=== PATIENT | male | born 1935 | race Caucasian/White ===

== ENCOUNTER → 2017-06-21 | Outpatient (CLI) | payer MEDICARE ==
--- NOTE | 2017-06-22 09:29 | MR ---
EXAMINATION TYPE: MR ankle RT wo con DATE OF EXAM: 06/21/2017 COMPARISON: Outside right ankle x-rays June 02, 2017. History of fall injury with right ankle pain for 1 year per patient. HISTORY: Rt ankle pain per order. Standard multiplanar, multisequence MRI departmental protocol Multiplanar, multisequence images of the right ankle were acquired. FINDINGS: Achilles tendon is intact. Plantar fascia is intact. Normal sinus tarsi fat is seen. Ankle mortise symmetry is preserved. There is tibiotalar joint space loss with focal area of cartilaginous defect measuring 2 mm on coronal image 21 along medial aspect. No Significant soft tissue swelling is seen. Subtalar joint anteriorly shows joint space loss and adj acent subchondral cystic change Peroneal tendons are intact and felt unremarkable. Flexor tendons along the posterior medial aspect of ankle are intact. There is focal thickening of po sterior tibialis tendon at level of medial malleolus with small focus of increased signal distal to t his on sagittal image 5 identified. Distally near insertion there is additional area of focal increas ed signal seen on sagittal image 6. Findings are consistent with focal split and split insertional te ars. Some fluid is noted distal to this at level of anterior to mid calcaneus. Mild edema in the flex or hallucis muscle bulk and peroneal muscle bulk is present this could be consistent with mild strain injury or product altered walking mechanics. Extensor tendons anteriorly are intact. The anterior tibiofibular and anterior talofibular ligaments appear maintained. Increased fluid signa l in the deltoid ligament is present consistent with mild to moderate sprain injury at this level. Bone marrow signal intensity is felt within normal limits. Hindfoot articulations are maintained. Lis franc joints are intact. IMPRESSION: 1. Mild to moderate sprain injury of deltoid ligament. 2. Split tear along PT tendon with additional split insertional tear. 3. Tibiotalar and subtalar degenerative changes as detailed above. 4. Mild posterior flexor muscle edema could reflect strain injury versus product of altered ambulatin g mechanics.
== END ==
LOC: RADMRIMAIN 14:58
PROVIDERS: ATTEND Orthopaedic Surgery
DX: S93.401A Sprain of unspecified ligament of right ankle, initial encounter (principal); S96.911A Strain of unspecified muscle and tendon at ankle and foot level, right foot, initial encounter; M19.071 Primary osteoarthritis, right ankle and foot

== ENCOUNTER 2017-07-25 16:53 | Inpatient (IN) | payer BC, MEDICARE, OTHER ==
[2017-07-25] MEDS ORDERED: FAMOTIDINE 20 MG/2 ML VIAL IV STA (17:18)
[2017-07-25] MEDS ORDERED: RX INFO: IV CONTRAST WAS GIVEN 1 EACH MISC MISCELLANE PRN (17:18)
[2017-07-25] MEDS ORDERED: ONDANSETRON 4 MG/2 ML VIAL IVP STA (17:18)
--- NOTE | 2017-07-25 17:21 | ED ---
General Adult HPI - General Chief complaint: Abdominal Pain Stated complaint: Vomiting, Abd Pain Time Seen by Provider: 07/25/17 17:11 Source: patient, RN notes reviewed Mode of arrival: ambulatory Limitations: no limitations - History of Present Illness Initial comments: 82-year-old male presents to the emergency department with a chief complaint of abdominal pain nausea vomiting. Patient has had this for the past 3 or 4 days. The patient states that he does have a history of bowel resection and repair. He states that he just has some abdominal pain and he has been throwing up. He states he's been burping a lot and he's had some runny stool with it. Patient denies any fever chills with this. He states he was concerned because it just was not getting better so he thought that he should be evaluated. Patient denies any other symptoms at this time.Patient denies any recent fever, chills, shortness of breath, chest pain, back pain, numbness or tingling, dysuria or hematuria, constipation or diarrhea, headaches or visual changes, or any other current symptoms. - Related Data Home Medications Medication Instructions Recorded Confirmed Aspirin 81 mg PO HS 02/23/14 07/25/17 Simvastatin [Zocor] 20 mg PO HS 02/23/14 07/25/17 Allergies Allergy/AdvReac Type Severity Reaction Status Date / Time Penicillins Allergy Rash/Hives Verified 07/25/17 17:21 prednisone Allergy Rash/Hives Verified 07/25/17 17:21 Review of Systems ROS Statement: Those systems with pertinent positive or pertinent negative responses have been documented in the HPI. ROS Other: All systems not noted in ROS Statement are negative. Past Medical History Past Medical History: Coronary Artery Disease (CAD), GERD/Reflux, Osteoarthritis (OA) Additional Past Medical History / Comment(s): hepatitis c - has been cleared, INTERNAL BLEEDING(ULCER) ANEMIA,MILD LEAKY VALVE.GOUT,DIVERTICULITIS, History of Any Multi-Drug Resistant Organisms: None Reported Past Surgical History: Cholecystectomy, Heart Catheterization With Stent, Orthopedic Surgery Additional Past Surgical History / Comment(s): cataract, RT ROTATOR CUFF, RT KNEE ARTHROSCOPY,LIPOMA REMOVED FRON CHEST, BOWEL OBSTRUCTION Past Anesthesia/Blood Transfusion Reactions: Blood Transfusion Reaction Additional Past Anesthesia/Blood Transfusion Reaction / Comment(s): CONTRACTED HEP C FROM A BLOOD TRANSFUSION 35-40 YEARS AGO. Date of Last Stent Placement:: 1999 Past Psychological History: No Psychological Hx Reported Smoking Status: Former smoker Past Alcohol Use History: Rare Past Drug Use History: None Reported General Exam - General Exam Comments Initial Comments: General: The patient is awake and alert, in no distress, and does not appear acutely ill. Eye: Pupils are equal, round and reactive to light. Ears, nose, mouth and throat: There are moist mucous membranes. Neck: The neck is supple, there is no tenderness. Cardiovascular: There is a regular rate and rhythm. No murmur, rub or gallop is appreciated. Respiratory: Lungs are clear to auscultation, respirations are non-labored, breath sounds are equal. No wheezes, stridor, rales, or rhonchi. Gastrointestinal: Soft, non-distended, non-tender abdomen without masses or organomegaly noted. There is no rebound or guarding present. No CVA tenderness. Bowel sounds are unremarkable. Back: There is no tenderness to palpation in the midline. There is no obvious deformity. No rashes noted. Musculoskeletal: Normal ROM, no tenderness, There is no pedal edema. There is no calf tenderness or swelling. Sensation intact. Pulses equal bilaterally 2+. Neurological: CN II-XII intact, There are no obvious motor or sensory deficits. Coordination appears grossly intact. Speech is normal. Skin: Skin is warm and dry and no rashes or lesions are noted. Psychiatric: Cooperative, appropriate mood & affect, normal judgment. Limitations: no limitations Course Vital Signs 07/25/17 07/25/17 17:03 18:37 Temperature 98.3 F Pulse Rate 76 66 Respiratory 18 17 Rate Blood Pressure 146/75 165/81 O2 Sat by Pulse 97 95 Oximetry Medical Decision Making - Medical Decision Making 82-year-old male presents emergency department with chief complaint of nausea vomiting and abdominal pain. At this time CAT scan results and laboratories are reviewed. At this time we did start an NG tube. Dr. Maxwell was current tested by Dr. Wright. Patient will be admitted at this time. Since questions have been answered. - Lab Data Result diagrams: 07/25/17 18:00 07/25/17 18:00 Lab Results 07/25/17 07/25/17 07/25/17 Range/Units 18:00 18:00 18:00 WBC 15.0 H (3.8-10.6) k/uL RBC 5.67 (4.30-5.90) m/uL Hgb 17.1 (13.0-17.5) gm/dL Hct 51.4 (39.0-53.0) % MCV 90.8 (80.0-100.0) fL MCH 30.1 (25.0-35.0) pg MCHC 33.2 (31.0-37.0) g/dL RDW 14.3 (11.5-15.5) % Plt Count 235 (150-450) k/uL Neutrophils % 77 % Lymphocytes % 13 % Monocytes % 6 % Eosinophils % 2 % Basophils % 1 % Neutrophils # 11.6 H (1.3-7.7) k/uL Lymphocytes # 1.9 (1.0-4.8) k/uL Monocytes # 0.9 (0-1.0) k/uL Eosinophils # 0.3 (0-0.7) k/uL Basophils # 0.1 (0-0.2) k/uL PT (9.0-12.0) sec INR (<1.2) APTT (22.0-30.0) sec Sodium 138 (137-145) mmol/L Potassium 4.3 (3.5-5.1) mmol/L Chloride 102 (98-107) mmol/L Carbon Dioxide 25 (22-30) mmol/L Anion Gap 11 mmol/L BUN 15 (9-20) mg/dL Creatinine 1.10 (0.66-1.25) mg/dL Est GFR (MDRD) Af Amer >60 (>60 ml/min/1.73 sqM) Est GFR (MDRD) Non-Af >60 (>60 ml/min/1.73 sqM) Glucose 116 H (74-99) mg/dL Plasma Lactic Acid Luiz 1.1 (0.7-2.0) mmol/L Calcium 9.7 (8.4-10.2) mg/dL Total Bilirubin 0.8 (0.2-1.3) mg/dL AST 32 (17-59) U/L ALT 59 (21-72) U/L Alkaline Phosphatase 73 (38-126) U/L Total Protein 7.1 (6.3-8.2) g/dL Albumin 4.4 (3.5-5.0) g/dL Amylase 47 (30-110) U/L Lipase 27 (23-300) U/L Urine Color Urine Appearance (Clear) Urine pH (5.0-8.0) Ur Specific Chilo (1.001-1.035) Urine Protein (Negative) Urine Glucose (UA) (Negative) Urine Ketones (Negative) Urine Blood (Negative) Urine Nitrite (Negative) Urine Bilirubin (Negative) Urine Urobilinogen (<2.0) mg/dL Ur Leukocyte Esterase (Negative) Urine RBC (0-5) /hpf Urine WBC (0-5) /hpf Ur Squamous Epith Cells (0-4) /hpf Calcium Oxalate Crystal (None) /hpf Hyaline Casts (0-2) /lpf Urine Mucus (None) /hpf 07/25/17 07/25/17 Range/Units 18:00 18:05 WBC (3.8-10.6) k/uL RBC (4.30-5.90) m/uL Hgb (13.0-17.5) gm/dL Hct (39.0-53.0) % MCV (80.0-100.0) fL MCH (25.0-35.0) pg MCHC (31.0-37.0) g/dL RDW (11.5-15.5) % Plt Count (150-450) k/uL Neutrophils % % Lymphocytes % % Monocytes % % Eosinophils % % Basophils % % Neutrophils # (1.3-7.7) k/uL Lymphocytes # (1.0-4.8) k/uL Monocytes # (0-1.0) k/uL Eosinophils # (0-0.7) k/uL Basophils # (0-0.2) k/uL PT 10.0 (9.0-12.0) sec INR 1.0 (<1.2) APTT 23.2 (22.0-30.0) sec Sodium (137-145) mmol/L Potassium (3.5-5.1) mmol/L Chloride (98-107) mmol/L Carbon Dioxide (22-30) mmol/L Anion Gap mmol/L BUN (9-20) mg/dL Creatinine (0.66-1.25) mg/dL Est GFR (MDRD) Af Amer (>60 ml/min/1.73 sqM) Est GFR (MDRD) Non-Af (>60 ml/min/1.73 sqM) Glucose (74-99) mg/dL Plasma Lactic Acid Luiz (0.7-2.0) mmol/L Calcium (8.4-10.2) mg/dL Total Bilirubin (0.2-1.3) mg/dL AST (17-59) U/L ALT (21-72) U/L Alkaline Phosphatase (38-126) U/L Total Protein (6.3-8.2) g/dL Albumin (3.5-5.0) g/dL Amylase (30-110) U/L Lipase (23-300) U/L Urine Color Yellow Urine Appearance Clear (Clear) Urine pH 5.5 (5.0-8.0) Ur Specific Chilo 1.023 (1.001-1.035) Urine Protein 1+ H (Negative) Urine Glucose (UA) Negative (Negative) Urine Ketones 1+ H (Negative) Urine Blood Negative (Negative) Urine Nitrite Negative (Negative) Urine Bilirubin Negative (Negative) Urine Urobilinogen 2.0 (<2.0) mg/dL Ur Leukocyte Esterase Negative (Negative) Urine RBC 1 (0-5) /hpf Urine WBC 2 (0-5) /hpf Ur Squamous Epith Cells <1 (0-4) /hpf Calcium Oxalate Crystal Occasional H (None) /hpf Hyaline Casts 1 (0-2) /lpf Urine Mucus Many H (None) /hpf - Radiology Data Radiology results: report reviewed, image reviewed Disposition Clinical Impression: Partial small bowel obstruction Disposition: ADMITTED IP TO THIS [facility] Condition: Stable Referrals: Emanuel Tapia MD [Primary Care Provider] - 1-2 days Decision Date: 07/25/17 Decision Time: 20:15
[2017-07-25] MEDS ORDERED: SODIUM CHLORIDE 0.9% 1,000 ML IV STA (18:11)
[2017-07-25 18:12] LABS: Basophils # (A) 0.1 k/uL (0-0.2); Basophils % (A) 1 %; Eosinophils # (A) 0.3 k/uL (0-0.7); Eosinophils % (A) 2 %; HCT 51.4 % (39.0-53.0); HGB 17.1 gm/dL (13.0-17.5); Lymphocytes # (A) 1.9 k/uL (1.0-4.8); Lymphocytes % (A) 13 %; MCH 30.1 pg (25.0-35.0); MCHC 33.2 g/dL (31.0-37.0); MCV 90.8 fL (80.0-100.0); Mean Platelet Volume 7.4; Monocytes # (A) 0.9 k/uL (0-1.0); Monocytes % (A) 6 %; Neutrophils # (A) 11.6 k/uL (1.3-7.7); Neutrophils % (A) 77 %; Platelet Count 235 k/uL (150-450); RBC 5.67 m/uL (4.30-5.90); RDW 14.3 % (11.5-15.5)
[2017-07-25 18:20] LABS: Partial Thromboplastin Time 23.2 sec (22.0-30.0)
[2017-07-25 18:22] LABS: Appearance,Urine Clear (Clear); Bilirubin,Urine Negative (Negative); Blood,Urine Negative (Negative); Calcium Oxalate Crystals,Urine Occasional /hpf; Color,Urine Yellow; Glucose,Urine (UA) Negative (Negative); Hyaline Casts,Urine 1 /lpf (0-2); Ketones,Urine 1+ (Negative); Leukocyte Esterase,Urine Negative (Negative); Mucus,Urine Many /hpf; Nitrite,Urine Negative (Negative); PH, Urine 5.5 (5.0-8.0); Protein,Urine 1+ (Negative); RBC,Urine 1 /hpf (0-5); Specific Gravity,Urine 1.023 (1.001-1.035); Squamous Epithelial Cell,Urine <1 /hpf (0-4); WBC,Urine 2 /hpf (0-5)
[2017-07-25 18:25] LABS: ALT 59 U/L (21-72); AST 32 U/L (17-59); Albumin 4.4 g/dL (3.5-5.0); Alkaline Phosphatase 73 U/L (38-126); Amylase 47 U/L (30-110); Anion Gap 11 mmol/L; Blood Urea Nitrogen 15 mg/dL (9-20); Calcium 9.7 mg/dL (8.4-10.2); Carbon Dioxide 25 mmol/L (22-30); Chloride 102 mmol/L (98-107); Glucose 116 mg/dL (74-99); Lipase 27 U/L (23-300); Potassium 4.3 mmol/L (3.5-5.1); Sodium 138 mmol/L (137-145); Total Bilirubin 0.8 mg/dL (0.2-1.3); Total Protein 7.1 g/dL (6.3-8.2)
--- NOTE | 2017-07-25 19:55 | CT ---
EXAMINATION TYPE: CT abdomen pelvis w con DATE OF EXAM: 07/25/2017 COMPARISON: 02/23/2014 HISTORY: Mid to pelvic pain with vomiting for [address] DLP: 678.4 mGycm Automated exposure control for dose reduction was used. TECHNIQUE: Helical acquisition of images was performed from the lung bases through the pelvis. CONTRAST: Performed without Oral Contrast and with IV Contrast, patient injected with 100 mL of Omnipaque 300. FINDINGS: Lung bases are clear. There is no pleural effusion. Liver spleen pancreas appear normal. There are cl ips from cholecystectomy. Bile ducts are not dilated. There is no adrenal mass. There is a 2 cm corti alfred cyst on the lateral left kidney. Kidneys show satisfactory contrast opacification. There is no hy dronephrosis. There is no retroperitoneal adenopathy. There are multiple distended fluid-filled loops of small bowel in the mid abdomen. There are numerous diverticula in the sigmoid colon. There is ventral hernia that contains bowel there is no evidence o f a incarceration. Small bowel measures up to 3.4 cm. The distal ileum has fairly normal diameter. I do not see a transition point. There is numerous diverticula in the transverse colon and left colon. I see no bony destructive process. IMPRESSION: MULTIPLE DILATED AIR AND FLUID-FILLED LOOPS OF SMALL BOWEL IN THE MID ABDOMEN CONSISTENT WITH PARTIAL OBSTRUCTION OR SMALL BOWEL ILEUS. EXTENSIVE COLONIC DIVERTICULOSIS WITHOUT SIGN OF DIVERTICULITIS. DILATED SMALL BOWEL IS NEW COMPARED TO OLD CT SCAN. VENTRAL HERNIA IS PRESENT WITHOUT EVIDENCE OF INCARCERATED BOWEL.
[2017-07-25] MEDS ORDERED: NALOXONE 0.4 MG/ML 1 ML VIAL IV PRN (20:15)
[2017-07-25] MEDS: SODIUM CHLORIDE 0.9% 1,000 ML IV SCH (20:27)
[2017-07-25] MEDS ORDERED: LIDOCAINE URO-JET JELLY 2% 5 ML KIT URETHRAL ONE (20:45)
[2017-07-26] MEDS: HYDROmorphone 1 MG/ML 1 ML SYRINGE IVP PRN ×5 (02:31→22:47)
[2017-07-26 07:16] LABS: Basophils # (A) 0.1 k/uL (0-0.2); Basophils % (A) 1 %; Eosinophils # (A) 0.3 k/uL (0-0.7); Eosinophils % (A) 2 %; HCT 49.9 % (39.0-53.0); HGB 16.3 gm/dL (13.0-17.5); Lymphocytes # (A) 2.6 k/uL (1.0-4.8); Lymphocytes % (A) 20 %; MCH 30.7 pg (25.0-35.0); MCHC 32.7 g/dL (31.0-37.0); MCV 93.9 fL (80.0-100.0); Mean Platelet Volume 6.9; Monocytes # (A) 0.8 k/uL (0-1.0); Monocytes % (A) 6 %; Neutrophils # (A) 8.5 k/uL (1.3-7.7); Neutrophils % (A) 67 %; Platelet Count 207 k/uL (150-450); RBC 5.32 m/uL (4.30-5.90); WBC 12.7 k/uL (3.8-10.6)
[2017-07-26 07:51] LABS: ALT 51 U/L (21-72); AST 34 U/L (17-59); Alkaline Phosphatase 66 U/L (38-126); Anion Gap 10 mmol/L; Blood Urea Nitrogen 12 mg/dL (9-20); Calcium 9.4 mg/dL (8.4-10.2); Carbon Dioxide 25 mmol/L (22-30); Chloride 105 mmol/L (98-107); Glucose 94 mg/dL (74-99); Potassium 4.6 mmol/L (3.5-5.1); Sodium 140 mmol/L (137-145); Total Bilirubin 0.9 mg/dL (0.2-1.3); Total Protein 6.6 g/dL (6.3-8.2)
[2017-07-26] MEDS: SODIUM CHLORIDE 0.9% 1,000 ML IV SCH ×2 (08:17→15:05)
[2017-07-26] MEDS: hydrALAZINE HCL 20 MG/ML 1 ML VIAL IVP PRN ×2 (11:45→20:30)
--- NOTE | 2017-07-26 11:57 | P.GSHP ---
History of Present Illness H&P Date: 07/26/17 Chief Complaint: Abdominal pain, nausea, vomiting The patient's a 82-year-old man who began feeling poorly and Wednesday. Wednesday night he had 3 forceful emesis. There was also some loose stool. The belching and loose stool continued on Wednesday. Wednesday morning he felt a little bit better but then it got worse again Wednesday night so he came into the emergency department. He had several episodes of watery stools done in the emergency room. He does have a history of a small bowel obstruction for which surgery was required. This was about [address] Munguia. He hasn't had fevers or chills. No muscle aches. He's not been around anyone that's been ill. No blood in the stool or dark tarry stool. At a colonoscopy about a year ago which was unremarkable. He does have some constipation from time to time and he takes Metamucil or MiraLAX - Review of Systems All systems: negative (His blood pressure was a little elevated last time he saw Dr. Tapia.) Past Medical History Past Medical History: Coronary Artery Disease (CAD), GERD/Reflux, Osteoarthritis (OA) Additional Past Medical History / Comment(s): hepatitis c - has been cleared, peptic ulcer ANEMIA,MILD LEAKY VALVE.GOUT,DIVERTICULITIS, History of Any Multi-Drug Resistant Organisms: None Reported Past Surgical History: Cholecystectomy, Heart Catheterization With Stent, Orthopedic Surgery Additional Past Surgical History / Comment(s): cataract, RT ROTATOR CUFF, RT KNEE ARTHROSCOPY,LIPOMA, laparotomy with release of small bowel obstruction Past Anesthesia/Blood Transfusion Reactions: Blood Transfusion Reaction Additional Past Anesthesia/Blood Transfusion Reaction / Comment(s): CONTRACTED HEP C FROM A BLOOD TRANSFUSION 35-40 YEARS AGO. Date of Last Stent Placement:: 1999 Past Psychological History: No Psychological Hx Reported Smoking Status: Former smoker Past Alcohol Use History: Rare Past Drug Use History: None Reported Medications and Allergies Home Medications Medication Instructions Recorded Confirmed Type Aspirin 81 mg PO HS 02/23/14 07/25/17 History Simvastatin [Zocor] 20 mg PO HS 02/23/14 07/25/17 History Allergies Allergy/AdvReac Type Severity Reaction Status Date / Time Penicillins Allergy Rash/Hives Verified 07/25/17 17:21 prednisone Allergy Rash/Hives Verified 07/25/17 17:21 Surgical - Exam Osteopathic Statement: *. No significant issues noted on an osteopathic structural exam other than those noted in the History and Physical/Consult. Vital Signs Temp Pulse Resp BP Pulse Ox 98.3 F 76 18 146/75 97 07/25/17 17:03 07/25/17 17:03 07/25/17 17:03 07/25/17 17:03 07/25/17 17:03 - General well developed, well nourished, no distress - Eyes normal ocular movement - ENT normal mucosa, no congestion - Neck trachea midline, no lymphadectomy - Respiratory normal respiratory effort, clear to auscultation - Cardiovascular Rhythm: regular - Abdomen Mild tympany to percussion across the upper abdomen Abdomen: soft, non tender, bowel sounds, no guarding, no rigid, no rebound - Psychiatric oriented to time, oriented to person, oriented to place, speech is normal, memory intact Results - Labs 07/26/17 06:19 07/26/17 06:19 Abnormal Lab Results - Last 24 Hours (Table) 07/25/17 07/25/17 07/25/17 Range/Units 18:00 18:00 18:05 WBC 15.0 H (3.8-10.6) k/uL Neutrophils # 11.6 H (1.3-7.7) k/uL Glucose 116 H (74-99) mg/dL Urine Protein 1+ H (Negative) Urine Ketones 1+ H (Negative) Calcium Oxalate Crystal Occasional H (None) /hpf Urine Mucus Many H (None) /hpf 07/26/17 Range/Units 06:19 WBC 12.7 H (3.8-10.6) k/uL Neutrophils # 8.5 H (1.3-7.7) k/uL Glucose (74-99) mg/dL Urine Protein (Negative) Urine Ketones (Negative) Calcium Oxalate Crystal (None) /hpf Urine Mucus (None) /hpf Diabetes panel 07/25/17 07/26/17 Range/Units 18:00 06:19 Sodium 138 140 (137-145) mmol/L Potassium 4.3 4.6 (3.5-5.1) mmol/L Chloride 102 105 (98-107) mmol/L Carbon Dioxide 25 25 (22-30) mmol/L BUN 15 12 (9-20) mg/dL Creatinine 1.10 1.22 (0.66-1.25) mg/dL Glucose 116 H 94 (74-99) mg/dL Calcium 9.7 9.4 (8.4-10.2) mg/dL AST 32 34 (17-59) U/L ALT 59 51 (21-72) U/L Alkaline Phosphatase 73 66 (38-126) U/L Total Protein 7.1 6.6 (6.3-8.2) g/dL Albumin 4.4 4.0 (3.5-5.0) g/dL Calcium panel 07/25/17 07/26/17 Range/Units 18:00 06:19 Calcium 9.7 9.4 (8.4-10.2) mg/dL Albumin 4.4 4.0 (3.5-5.0) g/dL Pituitary panel 07/25/17 07/26/17 Range/Units 18:00 06:19 Sodium 138 140 (137-145) mmol/L Potassium 4.3 4.6 (3.5-5.1) mmol/L Chloride 102 105 (98-107) mmol/L Carbon Dioxide 25 25 (22-30) mmol/L BUN 15 12 (9-20) mg/dL Creatinine 1.10 1.22 (0.66-1.25) mg/dL Glucose 116 H 94 (74-99) mg/dL Calcium 9.7 9.4 (8.4-10.2) mg/dL Adrenal panel 07/25/17 07/26/17 Range/Units 18:00 06:19 Sodium 138 140 (137-145) mmol/L Potassium 4.3 4.6 (3.5-5.1) mmol/L Chloride 102 105 (98-107) mmol/L Carbon Dioxide 25 25 (22-30) mmol/L BUN 15 12 (9-20) mg/dL Creatinine 1.10 1.22 (0.66-1.25) mg/dL Glucose 116 H 94 (74-99) mg/dL Calcium 9.7 9.4 (8.4-10.2) mg/dL Total Bilirubin 0.8 0.9 (0.2-1.3) mg/dL AST 32 34 (17-59) U/L ALT 59 51 (21-72) U/L Alkaline Phosphatase 73 66 (38-126) U/L Total Protein 7.1 6.6 (6.3-8.2) g/dL Albumin 4.4 4.0 (3.5-5.0) g/dL - Imaging CT scan - abdomen: report reviewed, image reviewed Assessment and Plan (1) Hyperlipidemia Current Visit: Yes Status: Acute Code(s): E78.5 - HYPERLIPIDEMIA, UNSPECIFIED SNOMED Code(s): 34794683 (2) Partial small bowel obstruction Current Visit: Yes Status: Acute Code(s): K56.600 - PARTIAL INTESTINAL OBSTRUCTION, UNSPECIFIED TO CAUSE SNOMED Code(s): 617901051 (3) Elevated blood pressure reading Current Visit: Yes Status: Acute Code(s): R03.0 - ELEVATED BLOOD-PRESSURE READING, W/O DIAGNOSIS OF HTN SNOMED Code(s): 15921767 (4) Loose stools Current Visit: Yes Status: Acute Code(s): R19.5 - OTHER FECAL ABNORMALITIES SNOMED Code(s): 031054101 Plan: Either has a ileus or partial bowel obstruction. Will continue NG tube decompression today and repeat x-ray in the morning. If he has additional loose stools will obtain stool studies. Order a internal medicine consult due to his elevated blood pressure. Further recommendations to follow
[2017-07-26] MEDS: ONDANSETRON 4 MG/2 ML VIAL IVP PRN (22:53)
[2017-07-27] MEDS: SODIUM CHLORIDE 0.9% 1,000 ML IV SCH ×3 (04:48→20:12)
[2017-07-27] MEDS: HYDROmorphone 1 MG/ML 1 ML SYRINGE IVP PRN ×4 (05:53→23:42)
--- NOTE | 2017-07-27 10:17 | XR ---
EXAMINATION TYPE: XR abdomen 2V DATE OF EXAM: 07/27/2017 COMPARISON: 07/25/2017 HISTORY: Pain TECHNIQUE: One view abdominal series FINDINGS: The osseous structures are intact. The bowel gas pattern is nonspecific. Persistent dilated small [place] wel loops are seen. There are surgical clips in the upper quadrant. NG tube noted. Degenerative stewart ge of the spine. Contrast within the bladder noted. IMPRESSION: 1. Findings are suggestive of small bowel obstruction persistent dilated small bowel loop in the left abdomen with air-fluid level.
[2017-07-27] MEDS: FAMOTIDINE 20 MG/2 ML VIAL IV SCH (10:50)
--- NOTE | 2017-07-27 11:17 | P.PN ---
Progress Note - Text Progress Note Date: 07/27/17 The patient is improving. Passed some flatus this morning. Mild abdominal pain resolved with the analgesic. NG tube is in place. On examination he is afebrile. Vitals are stable. Abdomen is soft with mild tenderness in the left upper quadrant but no guarding or rebound or rigidiity. Has a small ventral incisional hernia very soft and nontender with no evidence of incarceration. Abdominal films were reviewed. Shows dilated loops of small bowel in the left upper quadrant. There is however gas in the colon and stool. Impression. Small bowel obstruction probably secondary to adhesions improving. Recommendation continued NG tube IV fluids. We will repeat his abdominal films tomorrow. Further management will depend on his clinical course.
[2017-07-27] MEDS: ONDANSETRON 4 MG/2 ML VIAL IVP PRN (12:56)
--- NOTE | 2017-07-27 14:44 | P.CONS ---
History of Present Illness - Reason for Consult Consult date: 07/27/17 Hypertension Requesting physician: Alysia Maxwell - History of Present Illness This is an 82-year-old male patient of Dr. Emanuel Tapia with past medical history of bowel obstruction requiring surgery 2 years ago with ongoing and chronic constipation, coronary artery disease status post 2 stents, gastroesophageal reflux disease and peptic ulcer, diverticulitis, gout, hepatitis C, osteoarthritis. Patient has had elevated blood pressure readings at his primary care physician's office but has not been started on medication. He gives history that he has not been feeling well since Wednesday and developed loose stool on Wednesday and by Wednesday morning he was feeling a little bit better but then he worsened. He has had ongoing watery stools. He came into [facility] emergency center for evaluation and was admitted to the surgical unit under the care of Dr. Maxwell. His blood pressure has been consistently elevated since admission. Review of Systems All systems: negative Constitutional: Denies chills, Denies fever Eyes: denies blurred vision, denies pain Ears, nose, mouth and throat: Denies headache, Denies sore throat Cardiovascular: Denies chest pain, Denies shortness of breath Respiratory: Denies cough Gastrointestinal: Reports abdominal pain, Reports belching, Reports bloating, Reports diarrhea, Reports nausea, Reports vomiting Musculoskeletal: Denies myalgias Integumentary: Denies pruritus, Denies rash Neurological: Denies numbness, Denies weakness Psychiatric: Denies anxiety, Denies depression Endocrine: Denies fatigue, Denies weight change Past Medical History Past Medical History: Coronary Artery Disease (CAD), GERD/Reflux, Osteoarthritis (OA) Additional Past Medical History / Comment(s): hepatitis c - has been cleared, peptic ulcer ANEMIA,MILD LEAKY VALVE.GOUT,DIVERTICULITIS, History of Any Multi-Drug Resistant Organisms: None Reported Past Surgical History: Cholecystectomy, Heart Catheterization With Stent, Orthopedic Surgery Additional Past Surgical History / Comment(s): cataract, RT ROTATOR CUFF, RT KNEE ARTHROSCOPY,LIPOMA, laparotomy with release of small bowel obstruction Past Anesthesia/Blood Transfusion Reactions: Blood Transfusion Reaction Additional Past Anesthesia/Blood Transfusion Reaction / Comm: CONTRACTED HEP C FROM A BLOOD TRANSFUSION 35-40 YEARS AGO. Date of Last Stent Placement:: 1999 Past Psychological History: No Psychological Hx Reported Smoking Status: Former smoker Past Alcohol Use History: Rare Additional Past Alcohol Use History / Comment(s): Smoked for a couple years as a teenager only. He drinks a glass of wine once monthly. No illicit drug use. Past Drug Use History: None Reported - Past Family History Mother Additional Family Medical History / Comment(s): Other at age 80 from acute kidney injury following surgery. Father Additional Family Medical History / Comment(s): Other in his mid 60s due to blood clots with history of bladder cancer. Brother(s) Additional Family Medical History / Comment(s): Patient has one brother with history of non-Hodgkin's lymphoma diagnosed 15 years ago. He does not have any sisters. Adult children do not have any major medical problems. Medications and Allergies Home Medications Medication Instructions Recorded Confirmed Type Aspirin 81 mg PO HS 02/23/14 07/25/17 History Simvastatin [Zocor] 20 mg PO HS 02/23/14 07/25/17 History Allergies Allergy/AdvReac Type Severity Reaction Status Date / Time Penicillins Allergy Rash/Hives Verified 07/25/17 17:21 prednisone Allergy Rash/Hives Verified 07/25/17 17:21 Physical Exam Vitals: Vital Signs Temp Pulse Resp BP Pulse Ox 07/27/17 09:11 98.2 F 79 16 124/75 93 L 07/27/17 02:37 98.0 F 94 18 137/69 96 07/26/17 19:46 98.1 F 82 16 195/91 93 L 07/26/17 14:15 98.2 F 66 16 154/77 93 L 07/26/17 13:39 75 152/74 07/26/17 11:43 64 162/83 Intake and Output 07/26/17 07/27/17 07/27/17 22:59 06:59 14:59 Output Total 1050 500 350 Balance -1050 -500 -350 Output: Gastric Drainage 650 500 350 Urine 400 Other: # Voids 2 Gen: This is an 82-year-old male patient. He is sitting up in bed and appears to be comfortable. No acute distress noted. HEENT: Head is atraumatic, normocephalic. Pupils equal, round. Sclerae is anicteric. NG tube in place NECK: Supple. No JVD. No lymphadenopathy. No thyromegaly. LUNGS: Clear to auscultation. No wheezes or rhonchi. No intercostal retractions. HEART: Regular rate and rhythm. No murmur. ABDOMEN: Soft. Bowel sounds are present. No masses. Mild tenderness. EXTREMITIES: No pedal edema. No calf tenderness. NEUROLOGICAL: Patient is awake, alert and oriented x3. Cranial nerves 2 through 12 are grossly intact. Results CBC & Chem 7: 07/26/17 06:19 07/26/17 06:19 Labs: Microbiology - Last 24 Hours (Table) 07/25/17 18:00 Blood Culture - Preliminary Blood No Growth after 24 hours Assessment and Plan Plan: 1. Small bowel obstruction probably secondary to adhesions. Continue conservative management under the care of Dr. Munguia. NG tube is in place. Tinea Zofran for nausea and vomiting and Dilaudid for pain control. Continue IV fluids of 0.9 normal saline at 75 mL per hour. 2. Hypertension. Continue hydralazine IV push while patient is nothing by mouth. Patient will be started on oral medication once nothing by mouth status lifted. 3. History of coronary artery disease status post 2 stents, stable. Patient denies any chest pain. Troponin is negative. 4. Gastroesophageal reflux disease and peptic ulcer disease, GI prophylaxis. Pepcid IV push. 5. VT prophylaxis. Heparin subcu. Patient will be admitted to the hospital for a minimum of 2 night stay. Discharge plan: most likely return home Impression and plan of care have been directed as dictated by the signing physician. Susi Cardona nurse practitioner acting as scribe for signing physician.
[2017-07-27] MEDS: HEPARIN SODIUM,PORCINE 5,000 UNIT/ML 1 ML VIAL SQ SCH ×2 (15:41→23:42)
[2017-07-27] MEDS: hydrALAZINE HCL 20 MG/ML 1 ML VIAL IVP PRN (20:38)
[2017-07-27] MEDS: BENZOCAINE/MENTHOL LOZENG 1 EACH LOZENGE MUCOUS MEM PRN (20:43)
[2017-07-27 22:59] LABS: Glucose,Whole Blood 78 mg/dL (75-99)
[2017-07-28] MEDS: HYDROmorphone 1 MG/ML 1 ML SYRINGE IVP PRN ×3 (06:31→22:04)
[2017-07-28] MEDS ORDERED: TETRAHYDROZOLINE 0.05% OPHTH DROPS 15 ML BTL BOTH EYES PRN (06:33)
--- NOTE | 2017-07-28 08:01 | XR ---
EXAMINATION TYPE: XR abdomen complete w decub DATE OF EXAM: 07/28/2017 COMPARISON: 08-12 HISTORY: Pain TECHNIQUE: Supine, upright, and left side down lateral decubitus views of the abdomen are obtained. FINDINGS: NG tube noted with persistent dilated small bowel loop left abdomen. Surgical clips in the gallbladder fossa. Hypertrophic and degenerative change of the spine. Air-fluid levels noted on the d ecubitus view. IMPRESSION: Persistent dilated small bowel loops in the left abdomen. Partial small bowel obstruction in the diff erential diagnosis. Findings unchanged.
[2017-07-28] MEDS: FAMOTIDINE 20 MG/2 ML VIAL IV SCH (08:58)
[2017-07-28] MEDS: HEPARIN SODIUM,PORCINE 5,000 UNIT/ML 1 ML VIAL SQ SCH ×3 (08:58→23:42)
[2017-07-28] MEDS: SODIUM CHLORIDE 0.9% 1,000 ML IV SCH (11:08)
[2017-07-28] MEDS: BENZOCAINE/MENTHOL LOZENG 1 EACH LOZENGE MUCOUS MEM PRN ×2 (11:10→21:00)
[2017-07-28 11:33] LABS: Glucose,Whole Blood 68 mg/dL (75-99)
[2017-07-28] MEDS ORDERED: BISACODYL 10 MG SUPP RECTAL STA (12:32)
--- NOTE | 2017-07-28 12:35 | P.PN ---
Progress Note - Text Progress Note Date: 07/28/17 The patient remains fairly stable. Hasn't had any bowel movement or passed any flatus since I saw him yesterday morning. He is afebrile. Minimal abdominal discomfort. Hasn't used any analgesia for 14 hours. NG tube is in place. Had about 650 mL stapler with the last 24 hours about half what he had the previous day. On examination the patient is awake alert in no distress. Vitals are stable. Temperature is normal. Hydration is good. Abdomen is quite soft and nondistended. Midline and right upper quadrant scars are noted. No mass or organomegaly. No incarcerated hernia although he does have a hernia in his midline scar. Easily reducible and soft. Remainder of the abdomen is soft and benign. Abdominal films are reviewed. Still has a dilated loop of bowel in the left upper quadrant. However there appears to be more gas in the colon including large amount of the rectum. Impression clinically improving partial small bowel obstruction probably secondary to adhesive disease. History of exploratory laparotomy several years ago for bowel obstruction secondary to adhesions. Recommendation. Continued medical management. Hopefully he'll open up in the next day or so. We will try Dulcolax suppository for now. Check his CBC and electrolytes.
[2017-07-28 16:55] LABS: Glucose,Whole Blood 85 mg/dL (75-99)
[2017-07-28] MEDS: DEXTROSE 5%-0.9% NACL 1,000 ML IV SCH (20:57)
[2017-07-28] MEDS: FLUTICASONE 50MCG/SPRAY NASAL 16GM NASAL SCH (21:01)
[2017-07-28] MEDS: hydrALAZINE HCL 20 MG/ML 1 ML VIAL IVP PRN (21:01)
[2017-07-28 23:28] VITALS: BMI 26.6
[2017-07-28 23:58] LABS: Glucose,Whole Blood 92 mg/dL (75-99)
[2017-07-29] MEDS: DEXTROSE 5%-0.9% NACL 1,000 ML IV SCH ×2 (02:46→12:26)
[2017-07-29 05:52] LABS: Glucose,Whole Blood 103 mg/dL (75-99)
[2017-07-29] MEDS: FLUTICASONE 50MCG/SPRAY NASAL 16GM NASAL SCH (07:45)
[2017-07-29] MEDS: FAMOTIDINE 20 MG/2 ML VIAL IV SCH (07:46)
[2017-07-29] MEDS: HEPARIN SODIUM,PORCINE 5,000 UNIT/ML 1 ML VIAL SQ SCH ×3 (07:46→23:53)
[2017-07-29 08:03] LABS: Basophils # (A) 0.1 k/uL (0-0.2); Basophils % (A) 1 %; Eosinophils # (A) 0.5 k/uL (0-0.7); Eosinophils % (A) 5 %; HCT 47.4 % (39.0-53.0); HGB 15.9 gm/dL (13.0-17.5); Lymphocytes # (A) 2.1 k/uL (1.0-4.8); Lymphocytes % (A) 20 %; MCH 31.1 pg (25.0-35.0); MCHC 33.6 g/dL (31.0-37.0); MCV 92.7 fL (80.0-100.0); Mean Platelet Volume 6.7; Monocytes # (A) 0.7 k/uL (0-1.0); Monocytes % (A) 7 %; Neutrophils # (A) 6.9 k/uL (1.3-7.7); Neutrophils % (A) 65 %; Platelet Count 231 k/uL (150-450); RBC 5.11 m/uL (4.30-5.90); WBC 10.7 k/uL (3.8-10.6)
[2017-07-29 08:28] LABS: Anion Gap 12 mmol/L; Blood Urea Nitrogen 14 mg/dL (9-20); Calcium 9.4 mg/dL (8.4-10.2); Carbon Dioxide 26 mmol/L (22-30); Chloride 103 mmol/L (98-107); Glucose 107 mg/dL (74-99); Potassium 3.7 mmol/L (3.5-5.1); Sodium 141 mmol/L (137-145)
--- NOTE | 2017-07-29 09:12 | P.PN ---
Progress Note - Text Progress Note Date: 07/29/17 The patient is doing much better today. Passed a fair amount of flatus last night and this morning. Did get a Dulcolax suppository yesterday. NG output is much less the less than 3-400 amalgams over 24 hours. On examination he is afebrile. Vitals are stable. He is in no distress. Abdomen is very soft and benign. No tenderness no distention no mass or organomegaly noted. Abdominal x-rays look a lot better tolerated the small bowel distention is much improved. There is gas and stool in the colon down to the rectum. WBC is normal. Electrolytes are normal. Impression. Resolving the partial small bowel obstruction probably secondary to adhesions. Recommendation we'll clamp his NG tube today and start him on a liquid diet if he tolerates that.
--- NOTE | 2017-07-29 09:40 | XR ---
EXAMINATION TYPE: XR abdomen complete w decub DATE OF EXAM: 07/29/2017 COMPARISON: 07/28/2017 HISTORY: Small bowel obstruction TECHNIQUE: Supine, upright, and left side down lateral decubitus views of the abdomen are obtained. FINDINGS: There is an NG tube and surgical clips in the right upper quadrant. Hypertrophic and degene rative changes spine. Arthropathy of the hips. Calcification pelvis is likely vascular. Air is seen w ithin the rectum. A dilated small bowel loop in the left abdomen is stable. IMPRESSION: Stable dilated small bowel loop in the left abdomen unchanged from previous exam. Air is seen distall y within the rectum.
[2017-07-29 11:12] LABS: Glucose,Whole Blood 100 mg/dL (75-99)
[2017-07-29] MEDS: BENZOCAINE/MENTHOL LOZENG 1 EACH LOZENGE MUCOUS MEM PRN ×2 (12:25→15:58)
[2017-07-29 17:09] LABS: Glucose,Whole Blood 97 mg/dL (75-99)
[2017-07-29 23:53] LABS: Glucose,Whole Blood 108 mg/dL (75-99)
[2017-07-30] MEDS ORDERED: CALCIUM CARBONATE 500 MG CHEWABLE PO PRN (01:01)
[2017-07-30] MEDS: DEXTROSE 5%-0.9% NACL 1,000 ML IV SCH (04:43)
[2017-07-30 05:55] LABS: Glucose,Whole Blood 104 mg/dL (75-99)
[2017-07-30 07:15] VITALS: PULSE 76
[2017-07-30] MEDS: FAMOTIDINE 20 MG/2 ML VIAL IV SCH (07:16)
[2017-07-30] MEDS: HEPARIN SODIUM,PORCINE 5,000 UNIT/ML 1 ML VIAL SQ SCH (07:17)
[2017-07-30] MEDS: FLUTICASONE 50MCG/SPRAY NASAL 16GM NASAL SCH (07:19)
[2017-07-30] MEDS ORDERED: HYDROmorphone 2 MG/ML 1 ML SYRINGE IVP PRN (08:46)
[2017-07-30] MEDS ORDERED: LISINOPRIL 5 MG TAB PO SCH (09:00)
--- NOTE | 2017-07-30 11:39 | P.PN ---
Subjective Progress Note Date: 07/29/17 This is an 82-year-old male patient of Dr. Emanuel Tapia with past medical history of bowel obstruction requiring surgery 2 years ago with ongoing and chronic constipation, coronary artery disease status post 2 stents, gastroesophageal reflux disease and peptic ulcer, diverticulitis, gout, hepatitis C, osteoarthritis. Patient has had elevated blood pressure readings at his primary care physician's office but has not been started on medication. He gives history that he has not been feeling well since Wednesday and developed loose stool on Wednesday and by Wednesday morning he was feeling a little bit better but then he worsened. He has had ongoing watery stools. He came into [facility] emergency center for evaluation and was admitted to the surgical unit under the care of Dr. Maxwell. His blood pressure has been consistently elevated since admission. 07/29: Patient complains of nasal congestion and sinus trouble as well as headache and draining eyes. He states he usually takes Claritin at home but he doesn't want to start that here. Eyedrops and Flonase are in place. Patient is to have NG tube clamped today and may start clear liquids if he is tolerating this tonight. We will add in lisinopril orally to start in the morning and provide a prescription for lisinopril. Patient states he is passing gas. Objective - Vital Signs Vital signs: Vital Signs Temp 97.7 F 07/29/17 07:00 Pulse 67 07/29/17 07:00 Resp 14 07/29/17 07:00 BP 152/76 07/29/17 07:00 Pulse Ox 97 07/29/17 07:00 Intake & Output 07/28/17 07/29/17 07/29/17 18:59 06:59 18:59 Intake Total 750 Output Total 50 675 Balance -50 75 Weight 72.575 kg Intake: Intake, IV Titration 750 Amount Dextrose 5%-0.9% NaCl 1, 750 000 ml @ 75 mls/hr IV . [id number] SANA Rx#:[id number] Output: Gastric Drainage 50 150 Urine 525 Other: # Voids 1 - Exam Gen: This is an 82-year-old male patient. He is sitting up in bed and appears to be comfortable. No acute distress noted. HEENT: Head is atraumatic, normocephalic. Pupils equal, round. Sclerae is anicteric. NG tube in place NECK: Supple. No JVD. No lymphadenopathy. No thyromegaly. LUNGS: Clear to auscultation. No wheezes or rhonchi. No intercostal retractions. HEART: Regular rate and rhythm. No murmur. ABDOMEN: Soft. Bowel sounds are present. No masses. Mild tenderness. EXTREMITIES: No pedal edema. No calf tenderness. NEUROLOGICAL: Patient is awake, alert and oriented x3. Cranial nerves 2 through 12 are grossly intact. - Labs CBC & Chem 7: 07/29/17 07:10 07/29/17 07:10 Labs: Abnormal Lab Results - Last 24 Hours (Table) 07/28/17 07/29/17 07/29/17 Range/Units 11:24 05:40 07:10 WBC 10.7 H (3.8-10.6) k/uL Glucose (74-99) mg/dL POC Glucose (mg/dL) 68 L 103 H (75-99) mg/dL 07/29/17 Range/Units 07:10 WBC (3.8-10.6) k/uL Glucose 107 H (74-99) mg/dL POC Glucose (mg/dL) (75-99) mg/dL Microbiology - Last 24 Hours (Table) 07/25/17 18:00 Blood Culture - Preliminary Blood No Growth after 72 hours Assessment and Plan Plan: 1. Small bowel obstruction probably secondary to adhesions. Continue conservative management under the care of Dr. Munguia. NG tube is in place and to be clamped today. Continue Zofran for nausea and vomiting and Dilaudid for pain control. Continue IV fluids of 0.9 normal saline at 75 mL per hour. 2. Hypertension. Continue hydralazine IV push while patient is nothing by mouth. Patient will be started on oral medication once nothing by mouth status lifted. 3. History of coronary artery disease status post 2 stents, stable. Patient denies any chest pain. Troponin is negative. 4. Gastroesophageal reflux disease and peptic ulcer disease, GI prophylaxis. Pepcid IV push. 5. VT prophylaxis. Heparin subcu. 6. ALLERGIC rhinitis and conjunctivitis. Eye drops and Flonase. Discharge plan: most likely return home Impression and plan of care have been directed as dictated by the signing physician. Susi Cardona nurse practitioner acting as scribe for signing physician.
[2017-07-30 11:54] LABS: Glucose,Whole Blood 112 mg/dL (75-99)
--- NOTE | 2017-07-30 13:00 | P.DS ---
Providers Date of admission: 07/25/17 20:15 Expected date of discharge: 07/30/17 Attending physician: Jarett Munguia Consults: 07/26/17 10:40 Consult Physician Routine Consulting Provider: Steven Rice Reason/Comments: medical management Do you want consulting provider notified?: Yes Primary care physician: Emanuel Tapia Patient Condition at Discharge: Stable Plan - Discharge Summary Discharge Rx Participant: Yes New Discharge Prescriptions: New Lisinopril [Zestril] 5 mg PO DAILY #30 tab No Action Simvastatin [Zocor] 20 mg PO HS Aspirin 81 mg PO HS Discharge Medication List Aspirin 81 mg PO HS 02/23/14 [History] Simvastatin [Zocor] 20 mg PO HS 02/23/14 [History] Lisinopril [Zestril] 5 mg PO DAILY #30 tab 07/30/17 [Rx] Follow up Appointment(s)/Referral(s): Emanuel Tapia MD [Primary Care Provider] - 1 Week Jarett Munguia MD [STAFF PHYSICIAN] - 10 Days Activity/Diet/Wound Care/Special Instructions: Soft diet. Activity as tolerated. Resume all home meds. Take Miralax 1 tblsp daily.
[2017-07-30 15:21] VITALS: BP 165/89; RESP 16; TEMP 97
== END 2017-07-30 15:40 | disposition home or self-care (01) | DRG 390 ==
LOC: EC 16:53 → 3SUR 20:15
PROVIDERS: ADMIT Surgery; ATTEND Surgery
DX: K56.51 Intestinal adhesions [bands], with partial obstruction (principal); E78.5 Hyperlipidemia, unspecified; I10 Essential (primary) hypertension; I25.10 Atherosclerotic heart disease of native coronary artery without angina pectoris; K21.9 Gastro-esophageal reflux disease without esophagitis; K43.2 Incisional hernia without obstruction or gangrene; M10.9 Gout, unspecified; Z79.82 Long term (current) use of aspirin; Z79.899 Other long term (current) drug therapy; Z87.11 Personal history of peptic ulcer disease; Z87.891 Personal history of nicotine dependence; Z90.49 Acquired absence of other specified parts of digestive tract; Z95.5 Presence of coronary angioplasty implant and graft; Z88.0 Allergy status to penicillin; Z88.8 Allergy status to other drugs, medicaments and biological substances
CPT/HCPCS: 36415; 74019; 74021; 74177; 80048; 80053; 81001; 82150; 82272; 83605; 83690; 84484; 85025; 85610; 85730; 87040; 87045; 87046; 96360; 96361; 96374; 96375; 99285

== ENCOUNTER 2017-08-14 08:34 | Inpatient (IN) | payer MEDICARE ==
[2017-08-14] MEDS ORDERED: ONDANSETRON 4 MG/2 ML VIAL IVP STA ×2 (08:52→11:43)
[2017-08-14] MEDS ORDERED: SODIUM CHLORIDE 0.9% 1,000 ML IV STA (08:52)
[2017-08-14 09:07] LABS: Basophils # (A) 0.1 k/uL (0-0.2); Basophils % (A) 0 %; Eosinophils # (A) 0.2 k/uL (0-0.7); Eosinophils % (A) 2 %; HCT 50.4 % (39.0-53.0); HGB 16.8 gm/dL (13.0-17.5); Lymphocytes # (A) 1.5 k/uL (1.0-4.8); Lymphocytes % (A) 12 %; MCH 30.3 pg (25.0-35.0); MCHC 33.4 g/dL (31.0-37.0); MCV 90.5 fL (80.0-100.0); Mean Platelet Volume 7.5; Monocytes # (A) 0.7 k/uL (0-1.0); Monocytes % (A) 5 %; Neutrophils # (A) 10.1 k/uL (1.3-7.7); Neutrophils % (A) 78 %; Platelet Count 293 k/uL (150-450); RBC 5.56 m/uL (4.30-5.90); RDW 14.1 % (11.5-15.5); WBC 12.9 k/uL (3.8-10.6)
[2017-08-14 09:16] LABS: Albumin 4.5 g/dL (3.5-5.0); Calcium 10.2 mg/dL (8.4-10.2); Potassium 5.4 mmol/L (3.5-5.1); Total Bilirubin 0.8 mg/dL (0.2-1.3); Total Protein 7.4 g/dL (6.3-8.2)
--- NOTE | 2017-08-14 10:04 | ED ---
Nausea/Vomiting/Diarrhea HPI - General Chief complaint: Nausea/Vomiting/Diarrhea Stated complaint: poss bowel obstruction Time Seen by Provider: 08/14/17 08:51 Source: patient, family, RN notes reviewed Mode of arrival: wheelchair Limitations: physical limitation - History of Present Illness Initial comments: This an 82-year-old male presents emergency Department chief complaint of nausea vomiting abdominal discomfort. Patient states that he was admitted earlier this month for partial balk section. Patient states that he recently discharged follow-up with Dr. lucio who told him that everything seemed to be resolving and that he could progress his diet as tolerated. Patient states that yesterday he tried eating some chicken soup states that he vomited after states she's been having abdominal cramping which seems similar to his prior symptoms. Patient states he's been dry heaving all night. Patient denies chest pain, shortness breath, fever or chills. Denies any dysuria hematuria. He did admit that he had several episodes of diarrhea prior to his other symptoms starting. - Related Data Home Medications Medication Instructions Recorded Confirmed Aspirin 81 mg PO HS 02/23/14 07/25/17 Simvastatin [Zocor] 20 mg PO HS 02/23/14 07/25/17 Previous Rx's Medication Instructions Recorded Lisinopril [Zestril] 5 mg PO DAILY #30 tab 07/30/17 Allergies Allergy/AdvReac Type Severity Reaction Status Date / Time Penicillins Allergy Rash/Hives Verified 08/14/17 08:39 prednisone Allergy Rash/Hives Verified 08/14/17 08:39 Review of Systems ROS Statement: Those systems with pertinent positive or pertinent negative responses have been documented in the HPI. ROS Other: All systems not noted in ROS Statement are negative. Past Medical History Past Medical History: Coronary Artery Disease (CAD), GERD/Reflux, Osteoarthritis (OA) Additional Past Medical History / Comment(s): hepatitis c - has been cleared, peptic ulcer ANEMIA,MILD LEAKY VALVE.GOUT,DIVERTICULITIS, History of Any Multi-Drug Resistant Organisms: None Reported Past Surgical History: Cholecystectomy, Heart Catheterization With Stent, Orthopedic Surgery Additional Past Surgical History / Comment(s): cataract, RT ROTATOR CUFF, RT KNEE ARTHROSCOPY,LIPOMA, laparotomy with release of small bowel obstruction Past Anesthesia/Blood Transfusion Reactions: Blood Transfusion Reaction Additional Past Anesthesia/Blood Transfusion Reaction / Comment(s): CONTRACTED HEP C FROM A BLOOD TRANSFUSION 35-40 YEARS AGO. Date of Last Stent Placement:: 1999 Past Psychological History: No Psychological Hx Reported Smoking Status: Former smoker Past Alcohol Use History: Rare Past Drug Use History: None Reported - Past Family History Mother Additional Family Medical History / Comment(s): Other at age 80 from acute kidney injury following surgery. Father Additional Family Medical History / Comment(s): Other in his mid 60s due to blood clots with history of bladder cancer. Brother(s) Additional Family Medical History / Comment(s): Patient has one brother with history of non-Hodgkin's lymphoma diagnosed 15 years ago. He does not have any sisters. Adult children do not have any major medical problems. General Exam Limitations: physical limitation General appearance: alert, in no apparent distress Head exam: Present: atraumatic, normocephalic, normal inspection Neck exam: Present: normal inspection, full ROM. Absent: tenderness, meningismus, lymphadenopathy Respiratory exam: Present: normal lung sounds bilaterally. Absent: respiratory distress, wheezes, rales, rhonchi, stridor Cardiovascular Exam: Present: regular rate, normal rhythm, normal heart sounds. Absent: systolic murmur, diastolic murmur, rubs, gallop, clicks GI/Abdominal exam: Present: soft, tenderness (Mild), normal bowel sounds. Absent: distended, guarding, rebound, rigid Back exam: Absent: CVA tenderness (R), CVA tenderness (L) Skin exam: Present: warm, dry, intact, normal color. Absent: rash Course Vital Signs 08/14/17 08/14/17 08/14/17 08:35 09:33 10:00 Temperature 97.3 F L Pulse Rate 79 60 72 Respiratory 15 16 16 Rate Blood Pressure 109/55 118/65 126/71 O2 Sat by Pulse 98 95 94 L Oximetry 08/14/17 11:00 Temperature Pulse Rate 67 Respiratory 16 Rate Blood Pressure 133/71 O2 Sat by Pulse 96 Oximetry Medical Decision Making - Lab Data Result diagrams: 08/14/17 08:53 08/14/17 08:55 Lab Results 08/14/17 08/14/17 08/14/17 Range/Units 08:53 08:55 10:02 WBC 12.9 H (3.8-10.6) k/uL RBC 5.56 (4.30-5.90) m/uL Hgb 16.8 (13.0-17.5) gm/dL Hct 50.4 (39.0-53.0) % MCV 90.5 (80.0-100.0) fL MCH 30.3 (25.0-35.0) pg MCHC 33.4 (31.0-37.0) g/dL RDW 14.1 (11.5-15.5) % Plt Count 293 (150-450) k/uL Neutrophils % 78 % Lymphocytes % 12 % Monocytes % 5 % Eosinophils % 2 % Basophils % 0 % Neutrophils # 10.1 H (1.3-7.7) k/uL Lymphocytes # 1.5 (1.0-4.8) k/uL Monocytes # 0.7 (0-1.0) k/uL Eosinophils # 0.2 (0-0.7) k/uL Basophils # 0.1 (0-0.2) k/uL Sodium 140 (137-145) mmol/L Potassium 5.4 H (3.5-5.1) mmol/L Chloride 103 (98-107) mmol/L Carbon Dioxide 22 (22-30) mmol/L Anion Gap 15 mmol/L BUN 38 H (9-20) mg/dL Creatinine 1.90 H (0.66-1.25) mg/dL Est GFR (MDRD) Af Amer 42 (>60 ml/min/1.73 sqM) Est GFR (MDRD) Non-Af 34 (>60 ml/min/1.73 sqM) Glucose 110 H (74-99) mg/dL Calcium 10.2 (8.4-10.2) mg/dL Total Bilirubin 0.8 (0.2-1.3) mg/dL AST 28 (17-59) U/L ALT 46 (21-72) U/L Alkaline Phosphatase 81 (38-126) U/L Total Protein 7.4 (6.3-8.2) g/dL Albumin 4.5 (3.5-5.0) g/dL Amylase 78 (30-110) U/L Lipase 39 (23-300) U/L Urine Color Dark Yellow Urine Appearance Cloudy (Clear) Urine pH 5.5 (5.0-8.0) Ur Specific [place] 1.024 (1.001-1.035) Urine Protein 1+ H (Negative) Urine Glucose (UA) Negative (Negative) Urine Ketones Trace H (Negative) Urine Blood Negative (Negative) Urine Nitrite Negative (Negative) Urine Bilirubin Negative (Negative) Urine Urobilinogen <2.0 (<2.0) mg/dL Ur Leukocyte Esterase Negative (Negative) Urine RBC 1 (0-5) /hpf Urine WBC 3 (0-5) /hpf Ur Squamous Epith Cells 1 (0-4) /hpf Hyaline Casts 291 H (0-2) /lpf Urine Mucus Many H (None) /hpf Disposition Clinical Impression: Partial small bowel obstruction Disposition: HOME SELF-CARE Condition: Stable Referrals: Emanuel Tapia MD [Primary Care Provider] - 1-2 days
--- NOTE | 2017-08-14 10:13 | XR ---
EXAMINATION TYPE: XR KUB , 2 VIEWS DATE OF EXAM ORDERED: 08/14/2017 HISTORY: pain. COMPARISON: Previous study dated 02/23/2014. FINDINGS: There has been a previous cholecystectomy. The lung bases are clear. The abdominal gas pattern is within normal limits. There is no evidence of obstruction or free air. N o unusual calcifications are seen. IMPRESSION: NO ACUTE INTRA-ABDOMINAL ABNORMALITY.
[2017-08-14 10:30] LABS: Appearance,Urine Cloudy (Clear); Bilirubin,Urine Negative (Negative); Blood,Urine Negative (Negative); Color,Urine Dark Yellow; Glucose,Urine (UA) Negative (Negative); Hyaline Casts,Urine 291 /lpf (0-2); Ketones,Urine Trace (Negative); Leukocyte Esterase,Urine Negative (Negative); Mucus,Urine Many /hpf; Nitrite,Urine Negative (Negative); PH, Urine 5.5 (5.0-8.0); Protein,Urine 1+ (Negative); RBC,Urine 1 /hpf (0-5); Specific Gravity,Urine 1.024 (1.001-1.035); Squamous Epithelial Cell,Urine 1 /hpf (0-4); Urobilinogen,Urine <2.0 mg/dL (<2.0); WBC,Urine 3 /hpf (0-5)
--- NOTE | 2017-08-14 11:27 | CT ---
EXAMINATION TYPE: CT abdomen pelvis wo con DATE OF EXAM: 08/14/2017 COMPARISON: Previous study dated 07/25/2017. HISTORY: Abd pain CT DLP: 383.9 mGycm Automated exposure control for dose reduction was used. FINDINGS: Visualized portions of the lungs are clear. There is no pleural or pericardial fluid. The h eart is not enlarged. Within the abdomen, the gallbladder is been removed. Liver and spleen are normal. Both adrenal glands appear normal. There is no hydronephrosis or nephrolithiasis. Limited views of the pancreas are normal. There is mild to moderate atheromatous calcification of the visualized arterial tree. There is no significant retroperitoneal, iliac or inguinal adenopathy. The bladder is unremarkable. There are multiple diverticula within the sigmoid colon. I do not see radiographic evidence of divert iculitis. The appendix is not visualized with certainty. There is mild prominence there is mild prominence of the mid portion of the small bowel with some pro ximal small bowel and distal small bowel being more normal in caliber. The small bowel is poking into a ventral hernia with a 6.2 cm mouth. It does not appear to be incarcerated. No free fluid and no free air is seen. There is an indirect inguinal hernia on the right containing fat only. There is degenerative disc disease and hypertrophic spondylosis within the spine. There is facet arth ropathy most marked at L4-5. No bony destructive lesion is seen. IMPRESSION: 1. MILD DILATATION OF THE MIDPORTION OF THE SMALL BOWEL, SIMILAR TO THE PREVIOUS STUDY. 2. UNCOMPLICATED DIVERTICULOSIS OF THE COLON. 3. INDIRECT INGUINAL HERNIA ON THE RIGHT CONTAINING FAT ONLY. 4. DEGENERATIVE CHANGES WITHIN THE SPINE.
[2017-08-14] MEDS ORDERED: HYDROmorphone 0.5 MG/0.5 ML SYRINGE IVP PRN (11:52)
[2017-08-14] MEDS ORDERED: NALOXONE 0.4 MG/ML 1 ML VIAL IV PRN (11:52)
[2017-08-14] MEDS ORDERED: ONDANSETRON 4 MG/2 ML VIAL IVP PRN (11:52)
[2017-08-14] MEDS: SODIUM CHLORIDE 0.9% 1,000 ML IV SCH (14:04)
[2017-08-14 14:19] VITALS: BMI 25.9
--- NOTE | 2017-08-14 14:20 | P.GSCN ---
History of Present Illness Consult date: 08/14/17 Reason for Consult: SBO History of present illness: This is a 82-year-old male who presents with a chief complaint of nausea vomiting yesterday. He was having loose watery stools 2 days prior however yesterday he began experiencing nausea and then had several bouts of emesis after eating some chicken noodle soup. He was recently hospitalized for a small bowel obstruction earlier this month which resolved with conservative therapy. He has a history of an open cholecystectomy and also an exploratory laparotomy with lysis of adhesions. He states he's feeling much better today however he has had no bowel movement or flatness in the last 24 hours. Past Medical History Past Medical History: Coronary Artery Disease (CAD), GERD/Reflux, Osteoarthritis (OA) Additional Past Medical History / Comment(s): hepatitis c - has been cleared, peptic ulcer ANEMIA,MILD LEAKY VALVE.GOUT,DIVERTICULITIS, History of Any Multi-Drug Resistant Organisms: None Reported Past Surgical History: Cholecystectomy, Heart Catheterization With Stent, Orthopedic Surgery Additional Past Surgical History / Comment(s): cataract, RT ROTATOR CUFF, RT KNEE ARTHROSCOPY,LIPOMA, laparotomy with release of small bowel obstruction Past Anesthesia/Blood Transfusion Reactions: Blood Transfusion Reaction Additional Past Anesthesia/Blood Transfusion Reaction / Comm: CONTRACTED HEP C FROM A BLOOD TRANSFUSION 35-40 YEARS AGO. Date of Last Stent Placement:: 1999 Past Psychological History: No Psychological Hx Reported Smoking Status: Former smoker Past Alcohol Use History: Rare Past Drug Use History: None Reported - Past Family History Mother Additional Family Medical History / Comment(s): Other at age 80 from acute kidney injury following surgery. Father Additional Family Medical History / Comment(s): Other in his mid 60s due to blood clots with history of bladder cancer. Brother(s) Additional Family Medical History / Comment(s): Patient has one brother with history of non-Hodgkin's lymphoma diagnosed 15 years ago. He does not have any sisters. Adult children do not have any major medical problems. Medications and Allergies Home Medications Medication Instructions Recorded Confirmed Type Aspirin 81 mg PO HS 02/23/14 08/14/17 History Simvastatin [Zocor] 20 mg PO HS 02/23/14 08/14/17 History Lisinopril [Zestril] 5 mg PO DAILY #30 tab 07/30/17 08/14/17 Rx Esomeprazole Magnesium [NexIUM] 20 mg PO DAILY 08/14/17 08/14/17 History Methylcellulose (with Sugar) 2 tbsp PO DAILY 08/14/17 08/14/17 History [Citrucel Powder] Allergies Allergy/AdvReac Type Severity Reaction Status Date / Time Penicillins Allergy Rash/Hives Verified 08/14/17 12:18 prednisone Allergy Rash/Hives Verified 08/14/17 12:18 Surgical - Exam Osteopathic Statement: *. No significant issues noted on an osteopathic structural exam other than those noted in the History and Physical/Consult. Vital Signs Temp Pulse Resp BP Pulse Ox 97.3 F L 79 15 109/55 98 08/14/17 08:35 08/14/17 08:35 08/14/17 08:35 08/14/17 08:35 08/14/17 08:35 - General well developed, well nourished, no distress - Eyes PERRL, normal ocular movement - ENT normal pinna, normal nares, normal mucosa - Neck no masses, trachea midline - Respiratory normal expansion, normal respiratory effort - Cardiovascular Rhythm: regular - Abdomen Abdomen is soft nontender mildly distended no rebound rigidity or guarding - Neurologic normal coordination, normal sensation - Musculoskeletal normal gait - Psychiatric oriented to time, oriented to person, oriented to place Results - Labs 08/14/17 08:53 08/14/17 08:55 Abnormal Lab Results - Last 24 Hours (Table) 08/14/17 08/14/17 08/14/17 Range/Units 08:53 08:55 10:02 WBC 12.9 H (3.8-10.6) k/uL Neutrophils # 10.1 H (1.3-7.7) k/uL Potassium 5.4 H (3.5-5.1) mmol/L BUN 38 H (9-20) mg/dL Creatinine 1.90 H (0.66-1.25) mg/dL Glucose 110 H (74-99) mg/dL Urine Protein 1+ H (Negative) Urine Ketones Trace H (Negative) Hyaline Casts 291 H (0-2) /lpf Urine Mucus Many H (None) /hpf Diabetes panel 08/14/17 Range/Units 08:55 Sodium 140 (137-145) mmol/L Potassium 5.4 H (3.5-5.1) mmol/L Chloride 103 (98-107) mmol/L Carbon Dioxide 22 (22-30) mmol/L BUN 38 H (9-20) mg/dL Creatinine 1.90 H (0.66-1.25) mg/dL Glucose 110 H (74-99) mg/dL Calcium 10.2 (8.4-10.2) mg/dL AST 28 (17-59) U/L ALT 46 (21-72) U/L Alkaline Phosphatase 81 (38-126) U/L Total Protein 7.4 (6.3-8.2) g/dL Albumin 4.5 (3.5-5.0) g/dL Calcium panel 08/14/17 Range/Units 08:55 Calcium 10.2 (8.4-10.2) mg/dL Albumin 4.5 (3.5-5.0) g/dL Pituitary panel 08/14/17 Range/Units 08:55 Sodium 140 (137-145) mmol/L Potassium 5.4 H (3.5-5.1) mmol/L Chloride 103 (98-107) mmol/L Carbon Dioxide 22 (22-30) mmol/L BUN 38 H (9-20) mg/dL Creatinine 1.90 H (0.66-1.25) mg/dL Glucose 110 H (74-99) mg/dL Calcium 10.2 (8.4-10.2) mg/dL Adrenal panel 08/14/17 Range/Units 08:55 Sodium 140 (137-145) mmol/L Potassium 5.4 H (3.5-5.1) mmol/L Chloride 103 (98-107) mmol/L Carbon Dioxide 22 (22-30) mmol/L BUN 38 H (9-20) mg/dL Creatinine 1.90 H (0.66-1.25) mg/dL Glucose 110 H (74-99) mg/dL Calcium 10.2 (8.4-10.2) mg/dL Total Bilirubin 0.8 (0.2-1.3) mg/dL AST 28 (17-59) U/L ALT 46 (21-72) U/L Alkaline Phosphatase 81 (38-126) U/L Total Protein 7.4 (6.3-8.2) g/dL Albumin 4.5 (3.5-5.0) g/dL - Imaging CT scan - abdomen: report reviewed, image reviewed CT scan - pelvis: report reviewed, image reviewed Assessment and Plan Assessment: Early or partial small bowel obstruction. Plan: At this time the patient is feeling better. We can hold off on NG tube placement for now however should the patient become nauseous or have a bout of emesis NG tube will be placed.. Discussed this with the patient and he was agreeable to this plan. Patient also has a Diet likely secondary to dehydration he'll be on IV fluids. Nothing by mouth at this time we will advance diet when patient begins to have bowel function
--- NOTE | 2017-08-14 19:25 | P.HPIM ---
History of Present Illness H&P Date: 08/14/17 Chief Complaint: Nausea, vomiting and diarrhea This is an 82-year-old male patient of Dr. Emanuel Tapia with past medical history of bowel obstruction requiring surgery 2 years ago with ongoing and chronic constipation, coronary artery disease status post 2 stents, gastroesophageal reflux disease and peptic ulcer, diverticulitis, gout, hepatitis C, osteoarthritis. Last admitted on 07/25 for partial small bowel obstruction managed conservatively. Patient was doing well until 2 days ago when he was advanced on his diet and patient had dinner outside including pizza and chicken soup. Patient started having nausea, vomiting associated with watery diarrhea the following day. He got officially retired 2 days ago and met many people at work some of them might be sick. Patient was seen during the last visit for medical management and was initiated on lisinopril. Labs including CMP is suggestive of acute kidney injury likely secondary to dehydration. Patient received a liter of IV bolus in the ER with continuation of normal saline at 100 mL per hour. Lisinopril will be discontinued for hyperkalemia and acute kidney injury. Patient is currently nothing per mouth as per surgery recommendation. Repeat CMP in the morning Review of Systems Constitutional: Reports poor appetite, Denies fatigue, Denies fever, Denies lethargy, Denies malaise Eyes: denies blurred vision, denies decreased vision, denies discharge Ears: deny: decreased hearing Ears, nose, mouth and throat: Denies ant. neck pain, Denies dysphagia, Denies epistaxis, Denies headache, Denies hoarseness, Denies odynophagia, Denies post- nasal drip, Denies swelling in mouth, Denies swelling in throat Cardiovascular: Denies chest pain, Denies decreased exercise tolerance, Denies orthopnea, Denies palpitations Respiratory: Denies congestion, Denies cough with sputum, Denies dyspnea Gastrointestinal: Reports change in bowel habits, Reports diarrhea, Reports nausea, Reports vomiting, Denies abdominal pain, Denies belching, Denies bloating, Denies BRBPR, Denies early satiety, Denies excessive gas, Denies hematemesis, Denies hematochezia, Denies jaundice, Denies loss of appetite Genitourinary: Denies discharge, Denies dysuria, Denies hematuria, Denies urinary frequency, Denies urinary retention Musculoskeletal: Denies arm numbness/tingling, Denies muscle cramps, Denies muscle weakness, Denies myalgias, Denies neck pain Musculoskeletal: absent: ankle stiffness, elbow stiffness, foot stiffness, wrist stiffness, wrist swelling Integumentary: Denies rash, Denies unusual bruising Neurological: Denies aphasia, Denies ataxia, Denies balance difficulties, Denies numbness, Denies paralysis, Denies paresthesias Psychiatric: Denies anxiety, Denies depression Past Medical History Past Medical History: Coronary Artery Disease (CAD), GERD/Reflux, Osteoarthritis (OA) Additional Past Medical History / Comment(s): hepatitis c - has been cleared, peptic ulcer ANEMIA,MILD LEAKY VALVE.GOUT,DIVERTICULITIS, History of Any Multi-Drug Resistant Organisms: None Reported Past Surgical History: Cholecystectomy, Heart Catheterization With Stent, Orthopedic Surgery Additional Past Surgical History / Comment(s): cataract, RT ROTATOR CUFF, RT KNEE ARTHROSCOPY,LIPOMA, laparotomy with release of small bowel obstruction Past Anesthesia/Blood Transfusion Reactions: Blood Transfusion Reaction Additional Past Anesthesia/Blood Transfusion Reaction / Comment(s): CONTRACTED HEP C FROM A BLOOD TRANSFUSION 35-40 YEARS AGO. Date of Last Stent Placement:: 1999 Past Psychological History: No Psychological Hx Reported Smoking Status: Former smoker Past Alcohol Use History: Rare Past Drug Use History: None Reported - Past Family History Mother Additional Family Medical History / Comment(s): Other at age 80 from acute kidney injury following surgery. Father Additional Family Medical History / Comment(s): Other in his mid 60s due to blood clots with history of bladder cancer. Brother(s) Additional Family Medical History / Comment(s): Patient has one brother with history of non-Hodgkin's lymphoma diagnosed 15 years ago. He does not have any sisters. Adult children do not have any major medical problems. Medications and Allergies Home Medications Medication Instructions Recorded Confirmed Type Aspirin 81 mg PO HS 02/23/14 08/14/17 History Simvastatin [Zocor] 20 mg PO HS 02/23/14 08/14/17 History Lisinopril [Zestril] 5 mg PO DAILY #30 tab 07/30/17 08/14/17 Rx Esomeprazole Magnesium [NexIUM] 20 mg PO DAILY 08/14/17 08/14/17 History Methylcellulose (with Sugar) 2 tbsp PO DAILY 08/14/17 08/14/17 History [Citrucel Powder] Allergies Allergy/AdvReac Type Severity Reaction Status Date / Time Penicillins Allergy Rash/Hives Verified 08/14/17 12:18 prednisone Allergy Rash/Hives Verified 08/14/17 12:18 Physical Exam Vitals: Vital Signs Temp Pulse Pulse Resp BP BP Pulse Ox 08/14/17 14:26 97.8 F 60 16 131/76 96 08/14/17 12:48 97.5 F L 63 16 131/58 95 08/14/17 11:00 67 16 133/71 96 08/14/17 10:00 72 16 126/71 94 L 08/14/17 09:33 60 16 118/65 95 08/14/17 08:35 97.3 F L 79 15 109/55 98 Intake and Output 08/14/17 08/14/17 08/14/17 06:59 14:59 22:59 Intake Total 75 Balance 75 Intake: IV 75 Sodium Chloride 0.9% 1, 75 000 ml @ 75 mls/hr IV . [id number] [facility] Rx#:[id number] Other: Voiding Method Toilet Weight 70.624 kg Patient Weight 08/15/17 06:59 Weight 70.624 kg - Constitutional General appearance: average body habitus, no acute distress - EENT Eyes: PERRLA, dentition normal, no ptosis, no scleral icterus Ears: bilateral: normal - Neck Neck: no lymphadenopathy, normal ROM Carotids: bilateral: upstroke normal - Respiratory Respiratory: bilateral: CTA, negative: diminished, dullness, rales, rhonchi - Cardiovascular Rhythm: regular Heart sounds: normal: S1, S2 Abnormal Heart Sounds: no systolic murmur, no diastolic murmur, no S3 Gallop, no S4 Gallop, no click ankle Peripheral Edema: absent: None - Gastrointestinal General gastrointestinal: no distended, no hepatomegaly, normal bowel sounds, no organomegaly, no rigid, no scaphoid, soft, no splenomegaly, no tenderness - Integumentary Integumentary: no calor, no cyanotic, no jaundiced, no pale, no rash - Neurologic Neurologic: CNII-XII intact - Musculoskeletal Musculoskeletal: generalized weakness, strength equal bilaterally - Psychiatric Psychiatric: A&O x's 3, appropriate affect, intact judgment & insight Results CBC & Chem 7: 08/15/17 07:05 08/15/17 07:05 Labs: Abnormal Lab Results - Last 24 Hours (Table) 08/14/17 08/14/17 08/14/17 Range/Units 08:53 08:55 10:02 WBC 12.9 H (3.8-10.6) k/uL Neutrophils # 10.1 H (1.3-7.7) k/uL Potassium 5.4 H (3.5-5.1) mmol/L BUN 38 H (9-20) mg/dL Creatinine 1.90 H (0.66-1.25) mg/dL Glucose 110 H (74-99) mg/dL Urine Protein 1+ H (Negative) Urine Ketones Trace H (Negative) Hyaline Casts 291 H (0-2) /lpf Urine Mucus Many H (None) /hpf Thrombosis Risk Factor Assmnt - DVT/VTE Prophylaxis DVT/VTE Prophylaxis: Pharmacologic Prophylaxis ordered - Choose All That Apply Each Risk Factor Represents 3 Points: Age 75 years or older Thrombosis Risk Factor Assessment Total Risk Factor Score: 3 Thrombosis Risk Factor Assessment Level: Moderate Risk Assessment and Plan Plan: 1. Small bowel obstruction probably secondary to adhesions. Continue conservative management under the care of Dr. Fernandez . Hold NG tube placement unless patient has another emesis. Zofran for nausea and vomiting and Dilaudid for pain control. Continue IV fluids of 0.9 normal saline at 100 mL per hour. 2. Acute kidney injury likely secondary to ATN. Monitor input and output. Hold lisinopril. Likely secondary to dehydration and decreased perfusion of the kidneys. Avoid any nephrotoxic medication. Hyperkalemia likely secondary to acute kidney injury. Repeat CMP in the morning. Continue fluids at 100 mL per hour. 3. History of coronary artery disease status post 2 stents, stable. Patient denies any chest pain 4. Gastroesophageal reflux disease and peptic ulcer disease, GI prophylaxis. Pepcid IV push. 5. DVT prophylaxis. Heparin subcu. 6. Hypotension on admission likely secondary to dehydration. Hold antihypertensive medication. If kidney function does not improve patient would need another blood pressure medication Patient will be admitted to the hospital for a minimum of 2 night stay. Discharge plan: most likely return home
[2017-08-14] MEDS: HEPARIN SODIUM,PORCINE 5,000 UNIT/ML 1 ML VIAL SQ SCH (21:44)
[2017-08-15] MEDS: SODIUM CHLORIDE 0.9% 1,000 ML IV SCH ×2 (02:11→13:43)
--- NOTE | 2017-08-15 07:03 | XR ---
EXAMINATION TYPE: XR abdomen 1V , 2 VIEWS DATE OF EXAM ORDERED: 08/15/2017 HISTORY: ileitis . COMPARISON: Previous study dated 08/14/[address] scan of the abdomen and pelvis dated 07/27. FINDINGS: There has been a previous cholecystectomy. The lung bases are clear. The abdominal gas pattern is within normal limits. There is no evidence of obstruction or free air. T here are scattered air-fluid levels in the mid abdomen corresponding with the patient's recent CT sca n. IMPRESSION: SCATTERED AIR-FLUID LEVELS IN THE MIDABDOMEN MAY REFLECT LOCALIZED SMALL BOWEL ILEUS.
[2017-08-15 07:51] LABS: Basophils # (A) 0.1 k/uL (0-0.2); Basophils % (A) 1 %; Eosinophils # (A) 0.5 k/uL (0-0.7); Eosinophils % (A) 6 %; HCT 42.7 % (39.0-53.0); HGB 14.5 gm/dL (13.0-17.5); Lymphocytes # (A) 1.5 k/uL (1.0-4.8); Lymphocytes % (A) 18 %; MCH 31.5 pg (25.0-35.0); MCHC 33.9 g/dL (31.0-37.0); Mean Platelet Volume 7.3; Monocytes # (A) 0.6 k/uL (0-1.0); Monocytes % (A) 7 %; Neutrophils # (A) 5.1 k/uL (1.3-7.7); Neutrophils % (A) 64 %; Platelet Count 223 k/uL (150-450); RBC 4.59 m/uL (4.30-5.90); RDW 14.3 % (11.5-15.5)
[2017-08-15 08:09] LABS: ALT 47 U/L (21-72); AST 34 U/L (17-59); Albumin 3.5 g/dL (3.5-5.0); Alkaline Phosphatase 63 U/L (38-126); Anion Gap 12 mmol/L; Blood Urea Nitrogen 29 mg/dL (9-20); Carbon Dioxide 20 mmol/L (22-30); Chloride 109 mmol/L (98-107); Glucose 71 mg/dL (74-99); Lipase 46 U/L (23-300); Potassium 4.6 mmol/L (3.5-5.1); Sodium 141 mmol/L (137-145); Total Bilirubin 0.8 mg/dL (0.2-1.3); Total Protein 5.8 g/dL (6.3-8.2)
[2017-08-15] MEDS: HEPARIN SODIUM,PORCINE 5,000 UNIT/ML 1 ML VIAL SQ SCH ×2 (08:50→20:20)
[2017-08-15] MEDS: FAMOTIDINE 20 MG/2 ML VIAL IV SCH (08:51)
--- NOTE | 2017-08-15 12:07 | P.PN ---
Subjective Progress Note Date: 08/15/17 Principal diagnosis: Small bowel obstruction Patient is doing well today had small bowel movement and multiple episodes of flatus overnight. Denies nausea vomiting. Abdominal pain is resolved. No other complaints. Objective - Vital Signs Vital signs: Vital Signs Temp 98.0 F 08/15/17 07:00 Pulse 54 L 08/15/17 08:00 Resp 18 08/15/17 08:00 BP 135/71 08/15/17 07:00 Pulse Ox 94 L 08/15/17 07:00 Intake & Output 08/14/17 08/15/17 08/15/17 18:59 06:59 18:59 Intake Total 75 800 Output Total 600 Balance 75 800 -600 Weight 70.624 kg Intake: IV 75 Sodium Chloride 0.9% 1, 75 000 ml @ 100 mls/hr IV . Q10H [facility] Rx#:[id number] Intake, IV Titration 800 Amount Sodium Chloride 0.9% 1, 800 000 ml @ 100 mls/hr IV . Q10H [facility] Rx#:[id number] Output: Urine 600 Other: Voiding Method Toilet Toilet Toilet # Voids 2 - Constitutional General appearance: Present: cooperative - Respiratory Details: Nonlabored breathing - Cardiovascular Rhythm: regular - Gastrointestinal Gastrointestinal Comment(s): Soft nondistended nontender - Psychiatric Psychiatric: Present: A&O x's 3 - Labs CBC & Chem 7: 08/15/17 07:05 08/15/17 07:05 Labs: Abnormal Lab Results - Last 24 Hours (Table) 08/15/17 Range/Units 07:05 Chloride 109 H (98-107) mmol/L Carbon Dioxide 20 L (22-30) mmol/L BUN 29 H (9-20) mg/dL Creatinine 1.29 H (0.66-1.25) mg/dL Glucose 71 L (74-99) mg/dL Total Protein 5.8 L (6.3-8.2) g/dL Assessment and Plan Assessment: Small bowel obstruction resolving Plan: Patient can be started on clear liquid diet today. Advance slowly as tolerated. No plans for acute surgical intervention at this time
[2017-08-15] MEDS: DEXTROSE 5%-0.9% NACL 1,000 ML IV SCH ×2 (13:44→23:24)
--- NOTE | 2017-08-15 15:34 | P.PN ---
Subjective Progress Note Date: 08/15/17 This is an 82-year-old male patient of Dr. Emanuel Tapia with past medical history of bowel obstruction requiring surgery 2 years ago with ongoing and chronic constipation, coronary artery disease status post 2 stents, gastroesophageal reflux disease and peptic ulcer, diverticulitis, gout, hepatitis C, osteoarthritis. Last admitted on 07/25 for partial small bowel obstruction managed conservatively. Patient was doing well until 2 days ago when he was advanced on his diet and patient had dinner outside including pizza and chicken soup. Patient started having nausea, vomiting associated with watery diarrhea the following day. He got officially retired 2 days ago and met many people at work some of them might be sick. Patient was seen during the last visit for medical management and was initiated on lisinopril. Labs including CMP is suggestive of acute kidney injury likely secondary to dehydration. Patient received a liter of IV bolus in the ER with continuation of normal saline at 100 mL per hour. Lisinopril will be discontinued for hyperkalemia and acute kidney injury. Patient is currently nothing per mouth as per surgery recommendation. Repeat CMP in the morning 08/15 patient is doing better. Resting comfortably in bed. Is passing flatus, had last bowel movement yesterday but was watery diarrhea. Creatinine improved from 1.9-1.29. Continue fluids. Patient to be initiated on clear liquid diet today and advance as tolerated. Patient's glucose dropped to 71 this morning fluids changed to D5 NS Objective - Vital Signs Vital signs: Vital Signs Temp 98.0 F 08/15/17 07:00 Pulse 54 L 08/15/17 08:00 Resp 18 08/15/17 08:00 BP 135/71 08/15/17 07:00 Pulse Ox 94 L 08/15/17 07:00 Intake & Output 08/14/17 08/15/17 08/15/17 18:59 06:59 18:59 Intake Total 75 800 Output Total 600 Balance 75 800 -600 Weight 70.624 kg Intake: IV 75 Sodium Chloride 0.9% 1, 75 000 ml @ 100 mls/hr IV . Q10H [facility] Rx#:[id number] Intake, IV Titration 800 Amount Sodium Chloride 0.9% 1, 800 000 ml @ 100 mls/hr IV . Q10H [facility] Rx#:[id number] Output: Urine 600 Other: Voiding Method Toilet Toilet Toilet # Voids 2 - Constitutional Constitutional Comment(s): - Constitutional General appearance: average body habitus, no acute distress - EENT Eyes: PERRLA, dentition normal, no ptosis, no scleral icterus Ears: bilateral: normal - Neck Neck: no lymphadenopathy, normal ROM Carotids: bilateral: upstroke normal - Respiratory Respiratory: bilateral: CTA, negative: diminished, dullness, rales, rhonchi - Cardiovascular Rhythm: regular Heart sounds: normal: S1, S2 Abnormal Heart Sounds: no systolic murmur, no diastolic murmur, no S3 Gallop, no S4 Gallop, no click ankle Peripheral Edema: absent: None - Gastrointestinal General gastrointestinal: no distended, no hepatomegaly, normal bowel sounds, no organomegaly, no rigid, no scaphoid, soft, no splenomegaly, no tenderness - Integumentary Integumentary: no calor, no cyanotic, no jaundiced, no pale, no rash - Neurologic Neurologic: CNII-XII intact - Musculoskeletal Musculoskeletal: generalized weakness, strength equal bilaterally - Psychiatric Psychiatric: A&O x's 3, appropriate affect, intact judgment & insight - Labs CBC & Chem 7: 08/15/17 07:05 08/15/17 07:05 Labs: Abnormal Lab Results - Last 24 Hours (Table) 08/15/17 Range/Units 07:05 Chloride 109 H (98-107) mmol/L Carbon Dioxide 20 L (22-30) mmol/L BUN 29 H (9-20) mg/dL Creatinine 1.29 H (0.66-1.25) mg/dL Glucose 71 L (74-99) mg/dL Total Protein 5.8 L (6.3-8.2) g/dL Assessment and Plan Plan: 1. Small bowel obstruction probably secondary to adhesions. Continue conservative management under the care of Dr. Fernandez . Hold NG tube placement unless patient has another emesis. Zofran for nausea and vomiting and Dilaudid for pain control. Clear liquid diet initiated today advance as tolerated . Continue IV fluids D5 0.9 normal saline at 100 mL per hour. 2. Acute kidney injury likely secondary to ATN. Monitor input and output. Hold lisinopril. Likely secondary to dehydration and decreased perfusion of the kidneys. Avoid any nephrotoxic medication. Hyperkalemia likely secondary to acute kidney injury. Repeat CMP in the morning. Continue fluids at 100 mL per hour. 3. History of coronary artery disease status post 2 stents, stable. Patient denies any chest pain. 4. Gastroesophageal reflux disease and peptic ulcer disease, GI prophylaxis. Pepcid IV push. 5. DVT prophylaxis. Heparin subcu. 6. Hypotension on admission likely secondary to dehydration. Hold antihypertensive medication. If kidney function does not improve patient would need another blood pressure medication Patient will be admitted to the hospital for a minimum of 2 night stay. Discharge plan: most likely return home
[2017-08-16 07:51] LABS: Basophils # (A) 0.1 k/uL (0-0.2); Basophils % (A) 1 %; Eosinophils # (A) 0.5 k/uL (0-0.7); Eosinophils % (A) 6 %; HCT 43.4 % (39.0-53.0); HGB 14.4 gm/dL (13.0-17.5); Lymphocytes # (A) 1.6 k/uL (1.0-4.8); Lymphocytes % (A) 21 %; MCH 30.7 pg (25.0-35.0); MCHC 33.2 g/dL (31.0-37.0); MCV 92.6 fL (80.0-100.0); Mean Platelet Volume 6.6; Monocytes # (A) 0.6 k/uL (0-1.0); Monocytes % (A) 8 %; Neutrophils # (A) 4.6 k/uL (1.3-7.7); Neutrophils % (A) 60 %; Platelet Count 224 k/uL (150-450); RBC 4.69 m/uL (4.30-5.90); RDW 12.6 % (11.5-15.5); WBC 7.6 k/uL (3.8-10.6)
[2017-08-16] MEDS: HEPARIN SODIUM,PORCINE 5,000 UNIT/ML 1 ML VIAL SQ SCH (07:56)
[2017-08-16] MEDS: FAMOTIDINE 20 MG/2 ML VIAL IV SCH (07:56)
[2017-08-16 08:00] LABS: ALT 51 U/L (21-72); AST 35 U/L (17-59); Albumin 3.5 g/dL (3.5-5.0); Alkaline Phosphatase 64 U/L (38-126); Anion Gap 9 mmol/L; Blood Urea Nitrogen 16 mg/dL (9-20); Calcium 9.1 mg/dL (8.4-10.2); Carbon Dioxide 22 mmol/L (22-30); Chloride 110 mmol/L (98-107); Glucose 96 mg/dL (74-99); Potassium 4.4 mmol/L (3.5-5.1); Sodium 141 mmol/L (137-145); Total Bilirubin 0.7 mg/dL (0.2-1.3)
[2017-08-16] MEDS: DEXTROSE 5%-0.9% NACL 1,000 ML IV SCH (08:09)
[2017-08-16 08:44] VITALS: BP 142/77; PULSE 50; RESP 18; TEMP 97.8
--- NOTE | 2017-08-16 12:41 | P.DS ---
Providers Date of admission: 08/14/17 12:03 Expected date of discharge: 08/16/17 Attending physician: Clementine Arce MD Consults: 08/14/17 12:02 Consult Physician Stat Consulting Provider: Jarett Munguia Consult Reason/Comments: SBO Do you want consulting provider notified?: Yes Primary care physician: Emanuel Tapia [facility] Course: This is an 82-year-old male patient of Dr. Emanuel Tapia with past medical history of bowel obstruction requiring surgery 2 years ago with ongoing and chronic constipation, coronary artery disease status post 2 stents, gastroesophageal reflux disease and peptic ulcer, diverticulitis, gout, hepatitis C, osteoarthritis. Last admitted on 07/25 for partial small bowel obstruction managed conservatively. Patient was doing well until 2 days ago when he was advanced on his diet and patient had dinner outside including pizza and chicken soup. Patient started having nausea, vomiting associated with watery diarrhea the following day. He got officially retired 2 days ago and met many people at work some of them might be sick. Patient was seen during the last visit for medical management and was initiated on lisinopril. Labs including CMP is suggestive of acute kidney injury likely secondary to dehydration. Patient received a liter of IV bolus in the ER with continuation of normal saline at 100 mL per hour. Lisinopril will be discontinued for hyperkalemia and acute kidney injury. Patient is currently nothing per mouth as per surgery recommendation. Repeat CMP in the morning 08/15 patient is doing better. Resting comfortably in bed. Is passing flatus, had last bowel movement yesterday but was watery diarrhea. Creatinine improved from 1.9-1.29. Continue fluids. Patient to be initiated on clear liquid diet today and advance as tolerated. Patient's glucose dropped to 71 this morning fluids changed to D5 NS 08/16: Patient states he has had a bowel movement that was a combination of gas, liquid and sometimes solid. Dr. Fernandez has advanced his diet and cleared him for discharge home later today if he tolerates this. Norvasc has been added for blood pressure control. Patient will be discharged home later today in stable condition. Discharge diagnoses: 1. Small bowel obstruction probably secondary to adhesions. 2. Acute kidney injury likely secondary to ATN. 3. History of coronary artery disease status post 2 stents, stable. 4. Gastroesophageal reflux disease and peptic ulcer disease 5. Hypotension on admission likely secondary to dehydration. 6. Hypertension Discharge plan: home Impression and plan of care have been directed as dictated by the signing physician. Susi Cardona nurse practitioner acting as scribe for signing physician. Patient Condition at Discharge: Good Plan - Discharge Summary Discharge Rx Participant: Yes New Discharge Prescriptions: New amLODIPine [Norvasc] 5 mg PO DAILY #30 tab Continue Simvastatin [Zocor] 20 mg PO HS Aspirin 81 mg PO HS Methylcellulose (with Sugar) [Citrucel Powder] 2 tbsp PO DAILY Esomeprazole Magnesium [NexIUM] 20 mg PO DAILY Discontinued Lisinopril [Zestril] 5 mg PO DAILY #30 tab Discharge Medication List Aspirin 81 mg PO HS 02/23/14 [History] Simvastatin [Zocor] 20 mg PO HS 02/23/14 [History] Esomeprazole Magnesium [NexIUM] 20 mg PO DAILY 08/14/17 [History] Methylcellulose (with Sugar) [Citrucel Powder] 2 tbsp PO DAILY 08/14/17 [History ] amLODIPine [Norvasc] 5 mg PO DAILY #30 tab 08/16/17 [Rx] Follow up Appointment(s)/Referral(s): Jarett Munguia MD [STAFF PHYSICIAN] - 1 Week Emanuel Tapia MD [Primary Care Provider] - 1 Week Patient Instructions/Handouts: Amlodipine (By mouth), Syncope (DC), Bradycardia (DC), Bowel Obstruction (DC), Hyperlipidemia (DC) Discharge Disposition: HOME SELF-CARE
--- NOTE | 2017-08-16 14:07 | P.PN ---
Progress Note - Text Progress Note Date: 08/16/17 Patient is doing much better today. He's having bowel movements overnight. He's tolerating his diet. If he tolerates a soft diet he may be discharged later today. He'll follow up in the clinic.
== END 2017-08-16 15:55 | disposition home or self-care (01) | DRG 388 ==
LOC: EC 08:34 → 3SUR 12:03 → 5MS5E 18:13
PROVIDERS: ADMIT Internal Medicine; ATTEND Internal Medicine
DX: K56.51 Intestinal adhesions [bands], with partial obstruction (principal); N17.0 Acute kidney failure with tubular necrosis; I95.9 Hypotension, unspecified; E87.5 Hyperkalemia; E86.0 Dehydration; R11.10 Vomiting, unspecified; I10 Essential (primary) hypertension; I25.10 Atherosclerotic heart disease of native coronary artery without angina pectoris; K21.9 Gastro-esophageal reflux disease without esophagitis; K27.9 Peptic ulcer, site unspecified, unspecified as acute or chronic, without hemorrhage or perforation; K59.09 Other constipation; M10.9 Gout, unspecified; M19.90 Unspecified osteoarthritis, unspecified site; K57.90 Diverticulosis of intestine, part unspecified, without perforation or abscess without bleeding; R19.7 Diarrhea, unspecified; Z95.5 Presence of coronary angioplasty implant and graft; Z87.891 Personal history of nicotine dependence; Z79.82 Long term (current) use of aspirin; Z79.899 Other long term (current) drug therapy; Z88.0 Allergy status to penicillin; Z88.8 Allergy status to other drugs, medicaments and biological substances
CPT/HCPCS: 36415; 74018; 74176; 80053; 81001; 82150; 83690; 85025; 96361; 96374; 99285

== ENCOUNTER 2018-07-18 13:48 | Emergency (ER) | payer MEDICARE ==
[2018-07-18 14:08] VITALS: BP 161/94; PULSE 76; RESP 20; TEMP 97.6
--- NOTE | 2018-07-18 14:58 | ED ---
Skin/Abscess/FB HPI - General Chief complaint: Skin/Abscess/Foreign Body Stated complaint: rash on stomach Time Seen by Provider: 07/18/18 14:11 Source: patient, RN notes reviewed Mode of arrival: ambulatory Limitations: no limitations - History of Present Illness Initial comments: 83-year-old male presented to the emergency Department with chief complaint of rash to his left side. Patient states it started this morning. He has had pain last few days in that region was told it was just a nerve in his back. Patient states she does have history of having shingles. Patient denies any other complaints no fever no chills no URI symptoms. Patient otherwise feels well. - Related Data Home Medications Medication Instructions Recorded Confirmed Aspirin 81 mg PO HS 02/23/14 08/14/17 Simvastatin [Zocor] 20 mg PO HS 02/23/14 08/14/17 Esomeprazole Magnesium [NexIUM] 20 mg PO DAILY 08/14/17 08/14/17 Methylcellulose (with Sugar) 2 tbsp PO DAILY 08/14/17 08/14/17 [Citrucel Powder] Previous Rx's Medication Instructions Recorded amLODIPine [Norvasc] 5 mg PO DAILY #30 tab 08/16/17 valACYclovir HCL [Valtrex] 1,000 mg PO Q8HR #30 tab 07/18/18 Allergies Allergy/AdvReac Type Severity Reaction Status Date / Time Penicillins Allergy Rash/Hives Verified 07/18/18 14:08 prednisone Allergy Rash/Hives Verified 07/18/18 14:08 Review of Systems ROS Statement: Those systems with pertinent positive or pertinent negative responses have been documented in the HPI. ROS Other: All systems not noted in ROS Statement are negative. Past Medical History Past Medical History: Coronary Artery Disease (CAD), GERD/Reflux, Osteoarthritis (OA) Additional Past Medical History / Comment(s): hepatitis c - has been cleared, peptic ulcer ANEMIA,MILD LEAKY VALVE.GOUT,DIVERTICULITIS, shingles History of Any Multi-Drug Resistant Organisms: None Reported Past Surgical History: Cholecystectomy, Heart Catheterization With Stent, Orthopedic Surgery Additional Past Surgical History / Comment(s): cataract, RT ROTATOR CUFF, RT KNEE ARTHROSCOPY,LIPOMA, laparotomy with release of small bowel obstruction Past Anesthesia/Blood Transfusion Reactions: Blood Transfusion Reaction Additional Past Anesthesia/Blood Transfusion Reaction / Comment(s): CONTRACTED HEP C FROM A BLOOD TRANSFUSION 35-40 YEARS AGO. Date of Last Stent Placement:: 1999 Past Psychological History: No Psychological Hx Reported Smoking Status: Former smoker Past Alcohol Use History: Rare Past Drug Use History: None Reported - Past Family History Mother Additional Family Medical History / Comment(s): Other at age 80 from acute kidney injury following surgery. Father Additional Family Medical History / Comment(s): Other in his mid 60s due to blood clots with history of bladder cancer. Brother(s) Additional Family Medical History / Comment(s): Patient has one brother with history of non-Hodgkin's lymphoma diagnosed 15 years ago. He does not have any sisters. Adult children do not have any major medical problems. General Exam Limitations: no limitations General appearance: alert, in no apparent distress Head exam: Present: atraumatic, normocephalic, normal inspection Neck exam: Present: normal inspection. Absent: tenderness, meningismus, lymphadenopathy Respiratory exam: Present: normal lung sounds bilaterally. Absent: respiratory distress, wheezes, rales, rhonchi, stridor Cardiovascular Exam: Present: regular rate, normal rhythm, normal heart sounds. Absent: systolic murmur, diastolic murmur, rubs, gallop, clicks Skin exam: Present: warm, dry, intact, normal color, rash (Vesicular, papular rash noted to left lower abdomen) Course Vital Signs 07/18/18 14:05 Temperature 97.6 F Pulse Rate 76 Respiratory 20 Rate Blood Pressure 161/94 O2 Sat by Pulse 97 Oximetry Medical Decision Making - Medical Decision Making 83-year-old male presented for rash. Patient is found to have shingles. He was started on Valtrex. Patient will follow-up PCP on Wednesday and return for any worsening symptoms. Disposition Clinical Impression: Shingles Disposition: HOME SELF-CARE Condition: Stable Instructions: Shingles (ED) Additional Instructions: Please return to the Emergency Department if symptoms worsen or any other concerns. Prescriptions: valACYclovir HCL [Valtrex] 1,000 mg PO Q8HR #30 tab Is patient prescribed a controlled substance at d/c from ED?: No Referrals: Emanuel Tapia MD [Primary Care Provider] - 1-2 days Time of Disposition: 14:58
== END 2018-07-18 15:16 | disposition home or self-care (01) ==
LOC: EC 13:48
DX: B02.9 Zoster without complications (principal); I25.10 Atherosclerotic heart disease of native coronary artery without angina pectoris; K21.9 Gastro-esophageal reflux disease without esophagitis; Z95.5 Presence of coronary angioplasty implant and graft; Z87.891 Personal history of nicotine dependence; Z79.82 Long term (current) use of aspirin; Z79.899 Other long term (current) drug therapy; Z88.0 Allergy status to penicillin; Z88.8 Allergy status to other drugs, medicaments and biological substances
CPT/HCPCS: 99282

== ENCOUNTER 2018-07-20 12:49 | Inpatient (IN) | payer MEDICARE ==
[2018-07-20] MEDS ORDERED: ASPIRIN 81 MG PO STA (13:10)
--- NOTE | 2018-07-20 13:39 | ED ---
Chest Pain HPI - General Chief Complaint: Chest Pain Stated Complaint: Chest pain, arm numbness Time Seen by Provider: 07/20/18 13:10 Source: patient, RN notes reviewed Mode of arrival: wheelchair Limitations: no limitations - History of Present Illness Initial Comments: 83-year-old male presents emergency Department chief complaint of chest pain. Patient states his started around 10 AM this morning. Patient states that it's central to the right sided. Patient states he feels like a pressure. Patient denies any fever, cough, cold like symptoms. Patient states he is currently being treated for shingles. Patient states she's also noticed some left arm numbness and tingling. Patient has known coronary artery disease with prior stents 15 years ago and history of borderline hypertension. Patient denies any hyperlipidemia or diabetes - Related Data Home Medications Medication Instructions Recorded Confirmed Aspirin 81 mg PO HS 02/23/14 07/20/18 Simvastatin [Zocor] 20 mg PO HS 02/23/14 07/20/18 Esomeprazole Magnesium [NexIUM] 20 mg PO DAILY PRN 08/14/17 07/20/18 Previous Rx's Medication Instructions Recorded valACYclovir HCL [Valtrex] 1,000 mg PO Q8HR #30 tab 07/18/18 Allergies Allergy/AdvReac Type Severity Reaction Status Date / Time Penicillins Allergy Rash/Hives Verified 07/20/18 13:44 prednisone Allergy Rash/Hives Verified 07/20/18 13:44 Review of Systems ROS Statement: Those systems with pertinent positive or pertinent negative responses have been documented in the HPI. ROS Other: All systems not noted in ROS Statement are negative. Past Medical History Past Medical History: Coronary Artery Disease (CAD), GERD/Reflux, Osteoarthritis (OA) Additional Past Medical History / Comment(s): hepatitis c - has been cleared, peptic ulcer ANEMIA,MILD LEAKY VALVE.GOUT,DIVERTICULITIS, shingles History of Any Multi-Drug Resistant Organisms: None Reported Past Surgical History: Cholecystectomy, Heart Catheterization With Stent, Orthopedic Surgery Additional Past Surgical History / Comment(s): cataract, RT ROTATOR CUFF, RT KNEE ARTHROSCOPY,LIPOMA, laparotomy with release of small bowel obstruction Past Anesthesia/Blood Transfusion Reactions: Blood Transfusion Reaction Additional Past Anesthesia/Blood Transfusion Reaction / Comment(s): CONTRACTED HEP C FROM A BLOOD TRANSFUSION 35-40 YEARS AGO. Date of Last Stent Placement:: 2000 Past Psychological History: No Psychological Hx Reported Smoking Status: Former smoker Past Alcohol Use History: Rare Past Drug Use History: None Reported - Past Family History Mother Additional Family Medical History / Comment(s): Other at age 80 from acute kidney injury following surgery. Father Additional Family Medical History / Comment(s): Other in his mid 60s due to blood clots with history of bladder cancer. Brother(s) Additional Family Medical History / Comment(s): Patient has one brother with history of non-Hodgkin's lymphoma diagnosed 15 years ago. He does not have any sisters. Adult children do not have any major medical problems. General Exam Limitations: no limitations General appearance: alert, in no apparent distress Eye exam: Present: normal appearance, PERRL, EOMI. Absent: scleral icterus, conjunctival injection, periorbital swelling ENT exam: Present: normal exam, normal oropharynx, mucous membranes moist Neck exam: Present: normal inspection, full ROM. Absent: tenderness, meningismus, lymphadenopathy Respiratory exam: Present: normal lung sounds bilaterally. Absent: respiratory distress, wheezes, rales, rhonchi, stridor, chest wall tenderness Cardiovascular Exam: Present: regular rate, normal rhythm, normal heart sounds. Absent: systolic murmur, diastolic murmur, rubs, gallop, clicks GI/Abdominal exam: Present: soft, normal bowel sounds, other (Rash noted left lower erythematous slightly papular). Absent: distended, tenderness, guarding, rebound, rigid Neurological exam: Present: alert, oriented X3, CN II-XII intact Skin exam: Present: warm, dry, intact, normal color Course Vital Signs 07/20/18 07/20/18 07/20/18 13:06 13:13 13:20 Temperature 98.1 F Pulse Rate 64 65 63 Respiratory 18 20 10 L Rate Blood Pressure 185/95 O2 Sat by Pulse 96 96 94 L Oximetry 07/20/18 07/20/18 07/20/18 13:30 13:40 13:50 Temperature Pulse Rate 63 61 58 L Respiratory 22 24 28 H Rate Blood Pressure 182/104 182/104 167/93 O2 Sat by Pulse 96 96 96 Oximetry 07/20/18 07/20/18 07/20/18 14:00 14:10 14:20 Temperature Pulse Rate 61 56 L Respiratory 19 22 Rate Blood Pressure 167/93 O2 Sat by Pulse 97 91 L Oximetry 07/20/18 07/20/18 07/20/18 14:30 14:40 14:50 Temperature Pulse Rate 60 60 60 Respiratory 21 19 20 Rate Blood Pressure 179/79 179/79 158/94 O2 Sat by Pulse 95 96 94 L Oximetry 07/20/18 07/20/18 07/20/18 15:00 15:10 15:20 Temperature Pulse Rate 52 L 56 L 60 Respiratory 18 16 20 Rate Blood Pressure 158/94 181/104 165/95 O2 Sat by Pulse 95 97 96 Oximetry 07/20/18 15:30 Temperature Pulse Rate 60 Respiratory 13 Rate Blood Pressure 174/85 O2 Sat by Pulse 97 Oximetry Chest Pain MDM - MDM 83-year-old male presented from for chest pain. Patient will be admitted for repeat cardiac enzymes, cardiology evaluation. Patient has a negative initial troponin no acute EKG changes. Disposition Clinical Impression: Chest pain Disposition: ADMITTED IP TO THIS HOSP Condition: Fair Referrals: Emanuel Tapia MD [Primary Care Provider] - 1-2 days
[2018-07-20 14:19] LABS: HCT 46.3 % (39.0-53.0); HGB 15.7 gm/dL (13.0-17.5); MCH 30.9 pg (25.0-35.0); MCHC 33.8 g/dL (31.0-37.0); MCV 91.4 fL (80.0-100.0); Mean Platelet Volume 6.7; Platelet Count 201 k/uL (150-450); RBC 5.07 m/uL (4.30-5.90); RDW 13.4 % (11.5-15.5); WBC 8.5 k/uL (3.8-10.6)
[2018-07-20 14:23] LABS: INR 0.9 (<1.2); Partial Thromboplastin Time 23.1 sec (22.0-30.0); Prothrombin Time 9.5 sec (9.0-12.0)
--- NOTE | 2018-07-20 14:23 | XR ---
EXAMINATION TYPE: XR chest 2V DATE OF EXAM: 07/20/2018 COMPARISON: Prior chest x-ray 02/28/2014 HISTORY: Chest pain and shortness of breath TECHNIQUE: Frontal and lateral views of the chest are obtained. FINDINGS: Patient is rotated. There is no focal air space opacity, pleural effusion, or pneumothorax seen. The cardiac silhouette size is within normal limits. The aorta is dense. Surgical clips prese nt in the abdomen as on prior. Mild compression deformity mid thoracic spine is stable. Question some slight superior displacement of the distal clavicle in relation to the acromion. The osseous structu res are intact. IMPRESSION: No acute cardiopulmonary process. Correlate for acromioclavicular separation on the left .
[2018-07-20 14:27] LABS: Albumin 4.1 g/dL (3.5-5.0); Calcium 9.3 mg/dL (8.4-10.2); Magnesium 2.2 mg/dL (1.6-2.3); Potassium 4.4 mmol/L (3.5-5.1); Total Bilirubin 0.5 mg/dL (0.2-1.3); Total Protein 6.9 g/dL (6.3-8.2)
[2018-07-20 14:35] LABS: Creatine Kinase 62 U/L (55-170)
[2018-07-20 14:47] LABS: Band Neutrophils % 4 %; Eosinophils # (M) 0.77 k/uL (0-0.7); Lymphocytes # (M) 2.98 k/uL (1.0-4.8); Monocytes # (M) 0.68 k/uL (0-1.0); Neutrophils % (M) 44 %; Nucleated Red Blood Cells 0 /100 WBC (0-0); Total Cells Counted 100
[2018-07-20 14:48] LABS: Polychromasia Present
[2018-07-20 14:49] LABS: Creatine Kinase MB 0.8 ng/mL (0.0-2.4); Troponin I <0.012 ng/mL (0.000-0.034)
[2018-07-20] MEDS ORDERED: HEPARIN SODIUM,PORCINE 5,000 UNIT/ML 1 ML VIAL IV ONE (15:45)
[2018-07-20] MEDS ORDERED: HEPARIN SOD,PORK IN 0.45% NACL 25,000 UNIT in 0.45% NACL 1 250ML.BAG IV SCH (15:45)
[2018-07-20] MEDS ORDERED: NITROGLYCERIN SL TABS 0.4 MG TAB SUBLINGUAL PRN (15:45)
[2018-07-20] MEDS ORDERED: PANTOPRAZOLE 40 MG TABLET PO PRN (16:55)
[2018-07-20 17:21] VITALS: BMI 26.6
[2018-07-20 19:55] LABS: Creatine Kinase 51 U/L (55-170)
[2018-07-20 20:10] LABS: Creatine Kinase MB 0.6 ng/mL (0.0-2.4); Troponin I <0.012 ng/mL (0.000-0.034)
[2018-07-20] MEDS: ATORVASTATIN 10 MG TAB PO SCH (20:14)
[2018-07-21] MEDS: valACYclovir HCL 1,000 MG TABLET PO SCH ×3 (00:02→15:02)
[2018-07-21 03:24] LABS: Cholesterol 141 mg/dL (<200); Creatine Kinase 56 U/L (55-170); HDL Cholesterol 47 mg/dL (40-60); LDL Cholesterol,Calculated 68 mg/dL (0-99); Triglycerides 129 mg/dL (<150)
[2018-07-21 03:36] LABS: Creatine Kinase MB 0.6 ng/mL (0.0-2.4); Troponin I <0.012 ng/mL (0.000-0.034)
[2018-07-21] MEDS ORDERED: REGADENOSON 0.4 MG/5 ML SYRINGE IV ONE (09:04)
[2018-07-21] MEDS ORDERED: CAFFEINE CITRATE 60 MG/3 ML VIAL IV PRN (09:04)
[2018-07-21] MEDS: ASPIRIN 325 MG TAB PO SCH (09:05)
--- NOTE | 2018-07-21 10:42 | P.CRDCN ---
History of Present Illness History of present illness: This is a pleasant 83-year-old male past medical history significant for coronary artery disease status post stenting to the mid LAD, dyslipidemia, gastroesophageal reflux disease and recent diagnosis of shingles on Wednesday. He was seen in the emergency department and started on Valtrex. He follows with Dr. Benedict in the office. We have been asked to see him in consultation for symptoms of chest discomfort. He states yesterday he started feeling a mid sternal chest pain described as a pressure sensation while at rest. He felt like he couldn't take in a deep breath. His symptoms intermittent in nature. There was some numbness and tingling noted in his left hand but no significant discomfort of the arm. He denies radiation to the back, neck or jaw. He states initially on Wednesday when he was diagnosed as shingles he was feeling some discomfort in his abdomen. However since beginning Valtrex he has no further symptoms of discomfort in his abdomen or near the area of the rash. He denies associated palpitations, nausea, vomiting, dizziness or diaphoresis. EKG reveals sinus mechanism with left axis deviation with first degree AVB noted. Chest x-ray is negative for an acute cardiopulmonary process with a possible evidence of left clavicular separation. Laboratory data reviewed, WBC 8.5, hemoglobin 15.7, platelets 201, sodium 139, potassium 4.4, magnesium 2.2, creatinine 1.01, cardiac enzymes negative 3, LDL 68 and HDL 47. Current cardiac medications include aspirin 81 mg daily atorvastatin 20 mg daily. He underwent cardiac catheterization in 2001 where he received a stent to the mid LAD. Most recent stress test performed in the office in 2013 revealed no evidence of stress-induced ischemia. With normal ejection fraction. At the time of my exam: CONSTITUTIONAL: Denies fever. Denies chills. EYES: Denies blurred vision. Denies vision changes. Denies eye pain. EARS, NOSE, MOUTH & THROAT: Denies headache. Denies sore throat. Denies ear pain. CARDIOVASCULAR: Denies chest pain. Denies shortness of breath. Denies orthopnea. Denies PND. Denies palpitations. RESPIRATORY: Denies cough. GASTROINTESTINAL: Denies abdominal pain. Denies diarrhea. Denies constipation. Denies nausea. Denies vomiting. MUSCULOSKELETAL: Denies myalgias. INTEGUMENTARY: Denies pruitis. Denies rash. NEUROLOGIC: Denies numbness. Denies tingling. Denies weakness. PSYCHIATRIC: Denies anxiety. Denies depression. ENDOCRINE: Denies fatigue. Denies weight change. Denies polydipsia. Denies polyurina. GENITOURINARY: Denies burning, hematuria or urgency with micturation. HEMATOLOGIC: Denies history of anemia. Denies bleeding. Blood pressure 137/76 heart rate 66 afebrile maintaining oxygen saturation on room air GENERAL: This is a 83-year-old male in no apparent distress at the time of my examination. HEENT: Head is atraumatic, normocephalic. Pupils are equal, round. Sclerae anicteric. Conjunctivae are clear. Mucous membranes of the mouth are moist. Neck is supple. There is no jugular venous distention. No carotid bruit is heard. LUNGS: Clear to auscultation no wheezes, rales or rhonchi. No chest wall tenderness is noted on palpation or with deep breathing. HEART: Regular rate and rhythm without murmurs, no rubs or gallops. S1 and S2 heard. ABDOMEN: Soft, nontender. Bowel sounds are heard. No organomegaly noted. Papular rash on left lower torso. EXTREMITIES: No evidence of peripheral edema and no calf tenderness noted. VASCULAR: Radial and dorsalis pedis pulses palpated, no evidence of clubbing. NEUROLOGIC: Patient is awake, alert and oriented x3. ASSESSMENT Chest pain, atypical. An acute coronary event has been ruled out. Shingles, currently on valtrex since Wednesday night. Dyslipidemia History of coronary artery disease s/p stenting to mid-LAD 2001 PLAN An acute coronary event has been ruled out with no EKG evidence of ischemia and negative cardiac enzymes. Check d-dimer. Obtain 2D echocardiogram and doppler study to assess cardiac structure and function. Perform Lexiscan stress test to assess for reversible cardiac ischemia. If stress test is normal he is stable from a cardiac perspective. Follow up with Dr. Benedict in 2-3 weeks. Thank you kindly for this consultation. Nurse Practitioner note has been reviewed, I agree with a documented findings and plan of care. Patient was seen and examined. Past Medical History Past Medical History: Coronary Artery Disease (CAD), GERD/Reflux, Osteoarthritis (OA) Additional Past Medical History / Comment(s): hepatitis c - has been cleared, peptic ulcer ANEMIA,MILD LEAKY VALVE.GOUT,DIVERTICULITIS, shingles History of Any Multi-Drug Resistant Organisms: None Reported Past Surgical History: Cholecystectomy, Heart Catheterization With Stent, Orthopedic Surgery Additional Past Surgical History / Comment(s): cataract, RT ROTATOR CUFF, RT KNEE ARTHROSCOPY,LIPOMA, laparotomy with release of small bowel obstruction Past Anesthesia/Blood Transfusion Reactions: Blood Transfusion Reaction Additional Past Anesthesia/Blood Transfusion Reaction / Comment(s): CONTRACTED HEP C FROM A BLOOD TRANSFUSION 35-40 YEARS AGO. Date of Last Stent Placement:: 1999 Past Psychological History: No Psychological Hx Reported Smoking Status: Former smoker Past Alcohol Use History: Rare Additional Past Alcohol Use History / Comment(s): Smoked for a couple years as a teenager only. He drinks a glass of wine once monthly. No illicit drug use. Past Drug Use History: None Reported - Past Family History Mother Additional Family Medical History / Comment(s): Other at age 80 from acute kidney injury following surgery. Father Additional Family Medical History / Comment(s): Other in his mid 60s due to blood clots with history of bladder cancer. Brother(s) Additional Family Medical History / Comment(s): Patient has one brother with history of non-Hodgkin's lymphoma diagnosed 15 years ago. He does not have any sisters. Adult children do not have any major medical problems. Medications and Allergies Home Medications Medication Instructions Recorded Confirmed Type Aspirin 81 mg PO HS 02/23/14 07/20/18 History Simvastatin [Zocor] 20 mg PO HS 02/23/14 07/20/18 History Esomeprazole Magnesium [NexIUM] 20 mg PO DAILY PRN 08/14/17 07/20/18 History valACYclovir HCL [Valtrex] 1,000 mg PO Q8HR #30 tab 07/18/18 07/20/18 Rx Allergies Allergy/AdvReac Type Severity Reaction Status Date / Time Penicillins Allergy Rash/Hives Verified 07/20/18 13:44 prednisone Allergy Rash/Hives Verified 07/20/18 13:44 Physical Exam Vitals: Vital Signs Temp Pulse Pulse Resp BP BP BP 07/21/18 08:00 98.4 F 66 17 137/76 07/21/18 04:00 97.9 F 83 18 134/74 07/21/18 00:00 97.6 F 67 18 152/78 07/20/18 20:00 18 07/20/18 19:30 97.9 F 66 18 177/84 07/20/18 17:18 97.5 F L 59 L 18 190/93 07/20/18 16:06 55 L 20 188/91 07/20/18 15:30 60 13 174/85 07/20/18 15:20 60 20 165/95 07/20/18 15:10 56 L 16 181/104 07/20/18 15:00 52 L 18 158/94 07/20/18 14:50 60 20 158/94 07/20/18 14:40 60 19 179/79 07/20/18 14:30 60 21 179/79 07/20/18 14:20 56 L 22 07/20/18 14:10 61 19 07/20/18 14:00 167/93 07/20/18 13:50 58 L 28 H 167/93 07/20/18 13:40 61 24 182/104 07/20/18 13:30 63 22 182/104 07/20/18 13:20 63 10 L 07/20/18 13:13 65 20 07/20/18 13:06 98.1 F 64 18 185/95 Pulse Ox 07/21/18 08:00 93 L 07/21/18 04:00 93 L 07/21/18 00:00 94 L 07/20/18 20:00 07/20/18 19:30 94 L 07/20/18 17:18 96 07/20/18 16:06 98 07/20/18 15:30 97 07/20/18 15:20 96 07/20/18 15:10 97 07/20/18 15:00 95 07/20/18 14:50 94 L 07/20/18 14:40 96 07/20/18 14:30 95 07/20/18 14:20 91 L 07/20/18 14:10 97 07/20/18 14:00 07/20/18 13:50 96 07/20/18 13:40 96 07/20/18 13:30 96 07/20/18 13:20 94 L 07/20/18 13:13 96 07/20/18 13:06 96 Intake and Output 12/26/18 12/27/18 12/27/18 22:59 06:59 14:59 Intake Total 33.785 Balance 33.785 Intake: Intake, IV Titration 33.785 Amount Heparin Sod,Pork in 0.45% 33.785 NaCl 25,000 unit In 0.45 % NaCl 1 250ml.bag @ 12 UNITS/KG/HR 8.7 mls/hr IV .Q24H [facility] Rx#:[id number] Other: # Voids 2 Weight 74.9 kg Results 07/20/18 13:19 07/20/18 13:19 Cardiac Enzymes 07/20/18 07/20/18 07/20/18 Range/Units 13:19 13:19 19:11 AST 36 (17-59) U/L CK-MB (CK-2) 0.8 0.6 (0.0-2.4) ng/mL Troponin I <0.012 <0.012 (0.000-0.034) ng/mL 07/21/18 Range/Units 01:56 AST (17-59) U/L CK-MB (CK-2) 0.6 (0.0-2.4) ng/mL Troponin I <0.012 (0.000-0.034) ng/mL Coagulation 07/20/18 07/20/18 07/21/18 Range/Units 13:19 19:24 01:56 PT 9.5 (9.0-12.0) sec APTT 23.1 45.7 H 46.9 H (22.0-30.0) sec Lipids 07/21/18 Range/Units 01:56 Triglycerides 129 (<150) mg/dL Cholesterol 141 (<200) mg/dL HDL Cholesterol 47 (40-60) mg/dL CBC 07/20/18 Range/Units 13:19 WBC 8.5 (3.8-10.6) k/uL RBC 5.07 (4.30-5.90) m/uL Hgb 15.7 (13.0-17.5) gm/dL Hct 46.3 (39.0-53.0) % Plt Count 201 (150-450) k/uL Comprehensive Metabolic Panel 07/20/18 Range/Units 13:19 Sodium 139 (137-145) mmol/L Potassium 4.4 (3.5-5.1) mmol/L Chloride 109 H (98-107) mmol/L Carbon Dioxide 20 L (22-30) mmol/L BUN 22 H (9-20) mg/dL Creatinine 1.01 (0.66-1.25) mg/dL Glucose 92 (74-99) mg/dL Calcium 9.3 (8.4-10.2) mg/dL AST 36 (17-59) U/L ALT 36 (21-72) U/L Alkaline Phosphatase 81 (38-126) U/L Total Protein 6.9 (6.3-8.2) g/dL Albumin 4.1 (3.5-5.0) g/dL Current Medications Generic Name Dose Route Start Last Admin Trade Name Freq PRN Reason Stop Dose Admin Aspirin 325 mg 07/21/18 09:00 Aspirin PO DAILY SANA Atorvastatin Calcium 10 mg 07/20/18 21:00 07/20/18 20:14 Lipitor PO 10 mg HS SANA Administration Heparin Sodium/Sodium Chloride 250 mls @ 8.7 mls/hr 07/20/18 15:45 07/20/18 19:57 25,000 unit/ Sodium Chloride IV 14.05 units/kg/hr .Q24H [facility] 10.2 mls/hr Titration Protocol 12 UNITS/KG/HR Nitroglycerin 0.4 mg 07/20/18 15:45 Nitrostat SUBLINGUAL Q5M PRN Chest Pain Pantoprazole Sodium 40 mg 07/20/18 16:55 Protonix PO DAILY PRN Heartburn Valacyclovir HCl 1,000 mg 07/21/18 00:00 07/21/18 00:02 Valtrex PO 1,000 mg Q8HR SANA Administration Intake and Output 07/20/18 07/21/18 07/21/18 22:59 06:59 14:59 Intake Total 33.785 Balance 33.785 Intake: Intake, IV Titration 33.785 Amount Heparin Sod,Pork in 0.45% 33.785 NaCl 25,000 unit In 0.45 % NaCl 1 250ml.bag @ 12 UNITS/KG/HR 8.7 mls/hr IV .Q24H [facility] Rx#:[id number] Other: # Voids 2 Weight 74.9 kg 07/20/18 13:19 07/20/18 13:19
--- NOTE | 2018-07-21 12:32 | NM ---
EXAMINATION TYPE: NM stress lexiscan cardiolite DATE OF EXAM: 07/21/2018 COMPARISON: Previous exam 02/14/2009 HISTORY: Chest pain TECHNIQUE: After the intravenous administration of 10.8 mCi Tc 99m Sestamibi - Cardiolite resting SP ECT images acquired 40 minutes post injection. The patient received 0.4mg Lexiscan, 25.7 mCi Tc 99m Sestamibi - Stress images obtained [address] injection FINDINGS: Review of stress and rest SPECT images demonstrates decreased radio from physical uptake along the in ferolateral left ventricle on stress as compared to rest images especially towards the base of the he art, possibly along the septum also towards the base. Gated analysis shows normal wall motion with a n estimated left ventricular ejection fraction of 69 %. IMPRESSION: Findings suggest pharmacologically induced left ventricular myocardial ischemia. Consider echocardiog raphic correlation for elevated ejection fraction.
[2018-07-21] MEDS ORDERED: HEPARIN SODIUM,PORCINE 5,000 UNIT/ML 1 ML VIAL IV PRN (13:26)
--- NOTE | 2018-07-21 13:29 | P.HPIM ---
History of Present Illness H&P Date: 07/21/18 This is an 82-year-old male patient of Dr. Emanuel Tapia with past medical history of bowel obstruction requiring surgery 2 years ago with ongoing and chronic constipation, coronary artery disease status post 2 stents in 1999, gastroesophageal reflux disease and peptic ulcer, diverticulitis, gout, hepatitis C, osteoarthritis. Last admitted on 07/25 and for partial small bowel obstruction managed conservatively. He was in ED last week for shingles and was treated with Valtrex. Patient did not feel well on Wednesday started having chest pain yesterday associated with shortness of breath. Chest pain was intermittent in character, associated with numbness of the left upper extremity denies any sweating or radiation of pain to the jaw or either arm. EKG did not suggest any ST or T-wave changes. Troponin 3 were negative. Vitals this morning suggests a temp of 97.9 pulse 68 respiratory rate 18 blood pressure 160/83 labs ordered suggestive of focal creatinine 1.01B UN 22, LDL 68 CBC within normal limits. Cardiology seen in the patient and suggested Lexiscan for the patient. Review of Systems Constitutional: Denies chills, Denies fever, Denies lethargy, Denies malaise, Denies poor appetite, Denies weakness, Denies weight loss Eyes: denies decreased vision, denies diplopia, denies discharge, denies pain Ears: deny: decreased hearing Ears, nose, mouth and throat: Denies dental pain, Denies headache, Denies nasal discharge, Denies nose pain Cardiovascular: Endorses chest pain, dorsalis decreased exercise tolerance, Denies edema, endorses high blood pressure, Denies irregular heart beat, Denies palpitations, Denies paroxysmal nocturnal dyspnea, Denies rapid heart beat, endorses shortness of breath Respiratory: Denies congestion, Denies cough, Denies cough with sputum, endorses dyspnea, Denies home oxygen, Denies wheezing Gastrointestinal: Denies abdominal pain, Denies change in bowel habits, Denies coffee ground emesis, Denies early satiety, Denies excessive gas, Denies heartburn, Denies hematemesis, Denies hematochezia, Denies loss of appetite, Denies nausea, Denies vomiting Genitourinary: Denies dysuria, Denies flank pain, Denies kidney stones, Denies menorrhagia, Denies urgency, Denies urinary frequency Musculoskeletal: Denies gait dysfunction, Denies limitation of motion, Denies morning stiffness, Denies muscle cramps Integumentary: Denies rash, Denies wounds, Denies brittle nails, Denies change in hair/nails, Denies darkening of skin Neurological: Denies balance difficulties, Denies change in speech, Denies double vision, Denies gait dysfunction, Denies loss of vision, Denies motor disturbance, Denies numbness, Denies paralysis, Denies paresthesias, Denies seizures Psychiatric: Denies anxiety, Denies depression Endocrine: Denies excessive sweating, Denies excessive thirst, Denies high blood sugars, Denies palpitations Hematologic/Lymphatic: Denies easy bruising, Denies lymphadenopathy Past Medical History Past Medical History: Coronary Artery Disease (CAD), GERD/Reflux, Hyperlipidemia , Osteoarthritis (OA) Additional Past Medical History / Comment(s): hepatitis c - has been cleared, peptic ulcer ANEMIA,MILD LEAKY VALVE.GOUT,DIVERTICULITIS, shingles History of Any Multi-Drug Resistant Organisms: None Reported Past Surgical History: Cholecystectomy, Heart Catheterization With Stent, Orthopedic Surgery Additional Past Surgical History / Comment(s): cataract, RT ROTATOR CUFF, RT KNEE ARTHROSCOPY,LIPOMA, laparotomy with release of small bowel obstruction Past Anesthesia/Blood Transfusion Reactions: Blood Transfusion Reaction Additional Past Anesthesia/Blood Transfusion Reaction / Comment(s): CONTRACTED HEP C FROM A BLOOD TRANSFUSION 35-40 YEARS AGO. Date of Last Stent Placement:: 1999 Past Psychological History: No Psychological Hx Reported Smoking Status: Former smoker Past Alcohol Use History: Rare Additional Past Alcohol Use History / Comment(s): Smoked for a couple years as a teenager only. He drinks a glass of wine once monthly. No illicit drug use. Past Drug Use History: None Reported - Past Family History Mother Family Medical History: Cancer Additional Family Medical History / Comment(s): Other at age 80 from acute kidney injury following surgery. Father Family Medical History: Cancer Additional Family Medical History / Comment(s): Other in his mid 60s due to blood clots with history of bladder cancer. Brother(s) Family Medical History: Cancer, Coronary Artery Disease (CAD) Additional Family Medical History / Comment(s): Patient has one brother with history of non-Hodgkin's lymphoma diagnosed 15 years ago. He does not have any sisters. Adult children do not have any major medical problems. Medications and Allergies Home Medications Medication Instructions Recorded Confirmed Type Aspirin 81 mg PO HS 02/23/14 07/20/18 History Simvastatin [Zocor] 20 mg PO HS 02/23/14 07/20/18 History Esomeprazole Magnesium [NexIUM] 20 mg PO DAILY PRN 08/14/17 07/20/18 History valACYclovir HCL [Valtrex] 1,000 mg PO Q8HR #30 tab 07/18/18 07/20/18 Rx Allergies Allergy/AdvReac Type Severity Reaction Status Date / Time Penicillins Allergy Rash/Hives Verified 07/20/18 13:44 prednisone Allergy Rash/Hives Verified 07/20/18 13:44 Physical Exam Vitals: Vital Signs Temp Pulse Pulse Resp BP BP BP 07/21/18 12:00 97.9 F 68 18 160/83 07/21/18 08:00 98.4 F 66 17 137/76 07/21/18 04:00 97.9 F 83 18 134/74 07/21/18 00:00 97.6 F 67 18 152/78 07/20/18 20:00 18 07/20/18 19:30 97.9 F 66 18 177/84 07/20/18 17:18 97.5 F L 59 L 18 190/93 07/20/18 16:06 55 L 20 188/91 07/20/18 15:30 60 13 174/85 07/20/18 15:20 60 20 165/95 07/20/18 15:10 56 L 16 181/104 07/20/18 15:00 52 L 18 158/94 07/20/18 14:50 60 20 158/94 07/20/18 14:40 60 19 179/79 07/20/18 14:30 60 21 179/79 07/20/18 14:20 56 L 22 07/20/18 14:10 61 19 07/20/18 14:00 167/93 07/20/18 13:50 58 L 28 H 167/93 07/20/18 13:40 61 24 182/104 07/20/18 13:30 63 22 182/104 07/20/18 13:20 63 10 L Pulse Ox 07/21/18 12:00 95 07/21/18 08:00 93 L 07/21/18 04:00 93 L 07/21/18 00:00 94 L 07/20/18 20:00 07/20/18 19:30 94 L 07/20/18 17:18 96 07/20/18 16:06 98 07/20/18 15:30 97 07/20/18 15:20 96 07/20/18 15:10 97 07/20/18 15:00 95 07/20/18 14:50 94 L 07/20/18 14:40 96 07/20/18 14:30 95 07/20/18 14:20 91 L 07/20/18 14:10 97 07/20/18 14:00 07/20/18 13:50 96 07/20/18 13:40 96 07/20/18 13:30 96 07/20/18 13:20 94 L Intake and Output 07/20/18 07/21/18 07/21/18 22:59 06:59 14:59 Intake Total 33.785 236 Balance 33.785 236 Intake: Intake, IV Titration 33.785 Amount Heparin Sod,Pork in 0.45% 33.785 NaCl 25,000 unit In 0.45 % NaCl 1 250ml.bag @ 12 UNITS/KG/HR 8.7 mls/hr IV .Q24H [facility] Rx#:[id number] Oral 236 Other: # Voids 2 Weight 74.9 kg 74.9 kg - Constitutional General appearance: cooperative, no acute distress, appears her stated age - EENT Eyes: anicteric sclerae, PERRLA, normal appearance ENT: hearing grossly normal - Neck Neck: no lymphadenopathy, normal ROM, no other, no rigidity, no stridor, no thyromegaly - Respiratory Respiratory: bilateral: CTA, negative: diminished, dullness, rales, rhonchi - Cardiovascular Rhythm: regular Heart sounds: normal: S1, S2 Abnormal Heart Sounds: 2+ systolic murmur, no diastolic murmur, - Gastrointestinal General gastrointestinal: normal bowel sounds, soft nontender, active shins concerning for shingles around the navel and mid abdomen on the left mildly tender to palpate - Integumentary Integumentary: Shingles on the abdomen left - Neurologic Neurologic: CNII-XII intact - Musculoskeletal Musculoskeletal: gait normal, strength equal bilaterally - Psychiatric Psychiatric: A&O x's 3, appropriate affect Results CBC & Chem 7: 07/20/18 13:19 07/20/18 13:19 Labs: Abnormal Lab Results - Last 24 Hours (Table) 07/20/18 07/20/18 07/20/18 Range/Units 13:19 13:19 19:11 Eosinophils # (Manual) 0.77 H (0-0.7) k/uL APTT (22.0-30.0) sec Chloride 109 H (98-107) mmol/L Carbon Dioxide 20 L (22-30) mmol/L BUN 22 H (9-20) mg/dL Total Creatine Kinase 51 L (55-170) U/L 07/20/18 07/21/18 Range/Units 19:24 01:56 Eosinophils # (Manual) (0-0.7) k/uL APTT 45.7 H 46.9 H (22.0-30.0) sec Chloride (98-107) mmol/L Carbon Dioxide (22-30) mmol/L BUN (9-20) mg/dL Total Creatine Kinase (55-170) U/L Thrombosis Risk Factor Assmnt - DVT/VTE Prophylaxis DVT/VTE Prophylaxis: Pharmacologic Prophylaxis ordered - Choose All That Apply Any of the Below Risk Factors Present?: Yes Each Factor Represents 1 point: Obesity (BMI >25) Other Risk Factors: Yes Each Risk Factor Represents 3 Points: Age 75 years or older Other congenital or acquired thrombophilia - If yes, enter type in comment: No Thrombosis Risk Factor Assessment Total Risk Factor Score: 4 Thrombosis Risk Factor Assessment Level: Moderate Risk Assessment and Plan Plan: #1 acute chest pain likely cardiac. Lexiscan stress test is positive suggestive of decreased uptake in the inferior lateral left ventricle and along the septum towards the base. possible cardiac cath tomorrow keep patient nothing by mouth after midnight continue heparin drip overnight. Initiated on metoprolol tartrate 12.5 mg twice a day. Continue Lipitor 10 mg by mouth daily at bedtime and he is a 70 #2 history of Small bowel obstruction probably secondary to adhesions. Follows Dr. Fernandez . Stable 2. Active shingles continue Valtrex 1000 mg every 8 3. History of coronary artery disease status post 2 stents continue aspirin, metoprolol, Lipitor 4. Gastroesophageal reflux disease and peptic ulcer disease, GI prophylaxis. Pantoprazole 40 mg by mouth daily 5. DVT prophylaxis. Heparin drip 6. Hypertension blood pressure uncontrolled on admission has improved since yesterday. We'll initiate metoprolol 12.5 twice a day Patient will be admitted to the hospital for a minimum of 2 night stay.
[2018-07-21] MEDS: METOPROLOL TARTRATE 12.5 MG TAB PO SCH ×2 (14:03→21:00)
[2018-07-21] MEDS: HEPARIN SOD,PORK IN 0.45% NACL 25,000 UNIT in 0.45% NACL 1 250ML.BAG IV SCH (15:02)
[2018-07-21] MEDS: LOSARTAN 50 MG TAB PO SCH (15:28)
[2018-07-21 15:34] LABS: Basophils # (A) 0.1 k/uL (0-0.2); Basophils % (A) 1 %; Eosinophils # (A) 0.4 k/uL (0-0.7); Eosinophils % (A) 5 %; HCT 46.3 % (39.0-53.0); HGB 15.6 gm/dL (13.0-17.5); Lymphocytes # (A) 2.1 k/uL (1.0-4.8); Lymphocytes % (A) 26 %; MCHC 33.6 g/dL (31.0-37.0); MCV 92.3 fL (80.0-100.0); Mean Platelet Volume 6.9; Monocytes # (A) 0.6 k/uL (0-1.0); Monocytes % (A) 7 %; Neutrophils # (A) 4.9 k/uL (1.3-7.7); Neutrophils % (A) 58 %; Platelet Count 176 k/uL (150-450); RBC 5.02 m/uL (4.30-5.90); RDW 13.6 % (11.5-15.5); WBC 8.3 k/uL (3.8-10.6)
[2018-07-21 15:53] LABS: D-Dimer 0.42 mg/L FEU (<0.60); INR 0.9 (<1.2); Partial Thromboplastin Time 23.8 sec (22.0-30.0)
--- NOTE | 2018-07-21 19:32 | P.STRESS ---
- Stress Test Note Stress Test Results/Findings: Exam Performed: NM stress lexiscan cardiolite Exam Date: 07/21/18 Reason for Exam: CP Height: 5 ft 5 in Weight: 74.9 kg Protocol: LEXISCAN CARDIOLITE Stage: NA Duration of Exercise: 1:00 Resting Heart Rate: 58 Resting Blood Pressure: 152/85 Maximum Achieved Heart Rate: 108 Maximum Achieved Blood Pressure: 166/78 85% PMHR: NA 100% PMHR: NA METS: NA Technologist Comment: Stress Test Results/Findings: This is a 83-year-old gentleman was admitted to the hospital with chest pains and shortness of breath. Known case of ischemic heart disease. EKG did not reveal any acute changes. Cardiac enzymes are negative. Stress data: Baseline EKG showed sinus rhythm with nonspecific ST-T changes. A standard dose of Lexiscan was infused. EKGs taken during and after infusion did not reveal any changes of ischemia. Occasional PVCs are noted. Final impression: #1. Negative Lexiscan stress test #2. Report on the nuclear images to be given by the radiologist
--- NOTE | 2018-07-21 20:09 | ECHOF ---
Referral Reason: MEASUREMENTS -------- HEIGHT: 165.1 cm WEIGHT: 74.8 kg BP: IVSd: 1.1 cm (0.6 - 1.1) LVIDd: 3.8 cm (3.9 - 5.3) LVPWd: 1.0 cm (0.6 - 1.1) IVSs: 1.4 cm LVIDs: 2.0 cm LVPWs: 1.3 cm LAESV Index (A-L): 16.83 ml/m Ao Diam: 2.9 cm (2.0 - 3.7) AV Cusp: 1.8 cm (1.5 - 2.6) LA Diam: 3.5 cm (2.7 - 3.8) MV EXCURSION: 11.800 mm (> 18.000) MV EF SLOPE: 35 mm/s (70 - 150) EPSS: 0.5 cm MV E Emil: 0.57 m/s MV DecT: 167 ms MV A Emil: 1.00 m/s MV E/A Ratio: 0.56 AR PHT: 640 ms RAP: 5.00 mmHg RVSP: 12.32 mmHg FINDINGS -------- Sinus rhythm. This was a technically good study. The left ventricular size is normal. Left ventricular wall thickness is normal. Overall left vent ricular systolic function is normal with, an EF between 55 - 60 %. The right ventricle is normal in size. The left atrium is normal in size. The right atrium is normal in size. The aortic valve is trileaflet and appears structurally normal. Trace amount of aortic regurgitatio n. There is trace mitral regurgitation. Trace tricuspid regurgitation present. The right ventricular systolic pressure, as measured by Dopp ler, is 12.32mmHg. Pulmonic valve appears structurally normal. The aortic root size is normal. IVC Not well visulized. There is no pericardial effusion. CONCLUSIONS -------- 1. Sinus rhythm. 2. This was a technically good study. 3. The left ventricular size is normal. 4. Left ventricular wall thickness is normal. 5. Overall left ventricular systolic function is normal with, an EF between 55 - 60 %. 6. The right ventricle is normal in size. 7. The left atrium is normal in size. 8. The right atrium is normal in size. 9. The aortic valve is trileaflet and appears structurally normal. 10. Trace amount of aortic regurgitation. 11. There is trace mitral regurgitation. 12. Trace tricuspid regurgitation present. 13. The right ventricular systolic pressure, as measured by Doppler, is 12.32mmHg. 14. Pulmonic valve appears structurally normal. 15. The aortic root size is normal. 16. IVC Not well visulized. 17. There is no pericardial effusion. ERP CONSULTANT: Thelma Hernandez RDCS
[2018-07-21] MEDS: ATORVASTATIN 10 MG TAB PO SCH (21:00)
[2018-07-22] MEDS: valACYclovir HCL 1,000 MG TABLET PO SCH ×4 (00:03→23:15)
[2018-07-22 05:34] LABS: Basophils # (A) 0.1 k/uL (0-0.2); Basophils % (A) 1 %; Eosinophils # (A) 0.6 k/uL (0-0.7); Eosinophils % (A) 7 %; HCT 45.9 % (39.0-53.0); HGB 15.1 gm/dL (13.0-17.5); Lymphocytes # (A) 2.8 k/uL (1.0-4.8); Lymphocytes % (A) 31 %; MCH 29.9 pg (25.0-35.0); MCHC 32.9 g/dL (31.0-37.0); Mean Platelet Volume 6.8; Monocytes # (A) 0.6 k/uL (0-1.0); Monocytes % (A) 7 %; Neutrophils # (A) 4.7 k/uL (1.3-7.7); Neutrophils % (A) 51 %; Platelet Count 175 k/uL (150-450); RBC 5.05 m/uL (4.30-5.90); RDW 13.5 % (11.5-15.5); WBC 9.2 k/uL (3.8-10.6)
[2018-07-22] MEDS ORDERED: ALPRAZolam 0.25 MG TAB PO PRN (08:30)
[2018-07-22] MEDS ORDERED: ALPRAZolam 0.5 MG TAB PO PRN (08:30)
[2018-07-22] MEDS ORDERED: SODIUM CHLORIDE 0.9% 1,000 ML in EMPTY BAG 1 BAG IV ONE (08:30)
[2018-07-22] MEDS: HEPARIN SOD,PORK IN 0.45% NACL 25,000 UNIT in 0.45% NACL 1 250ML.BAG IV SCH ×2 (08:34→22:43)
[2018-07-22] MEDS: ASPIRIN 325 MG TAB PO SCH (08:36)
[2018-07-22] MEDS: METOPROLOL TARTRATE 12.5 MG TAB PO SCH ×2 (08:37→20:09)
[2018-07-22] MEDS: LOSARTAN 50 MG TAB PO SCH (08:37)
[2018-07-22] MEDS ORDERED: LIDOCAINE 1% INJ 10MG/ML (20 ML MDV) ONE (08:41)
[2018-07-22] MEDS ORDERED: IV FLUID CONTINUATION 1,000 ML IV ONE (08:45)
[2018-07-22] MEDS ORDERED: fentaNYL (PF) 50 MCG/ML 2 ML AMP ONE (09:00)
[2018-07-22] MEDS ORDERED: fentaNYL (PF) 50 MCG/ML 2 ML AMP IV ONE (09:02)
[2018-07-22] MEDS ORDERED: MIDAZOLAM 2 MG/2 ML VIAL IV ONE (09:03)
[2018-07-22] MEDS ORDERED: LIDOCAINE 1% INJ 10MG/ML (20 ML MDV) SQ ONE (09:04)
[2018-07-22] MEDS ORDERED: BIVALIRUDIN BOLUS 250 MG/50 ML IV ONE (09:35)
[2018-07-22] MEDS ORDERED: IOPAMIDOL-370 125ML BTL INJ ONE (09:35)
[2018-07-22] MEDS ORDERED: CLOPIDOGREL 75 MG TAB ONE (09:36)
[2018-07-22] MEDS ORDERED: CLOPIDOGREL 75 MG TAB PO ONE (09:39)
[2018-07-22] MEDS ORDERED: BIVALIRUDIN 250 MG in SODIUM CHLORIDE 0.9% 50 ML IV ONE (09:40)
--- NOTE | 2018-07-22 09:44 | P.CARDCATH ---
Date of Procedure: 07/22/18 Preoperative Diagnosis: Unstable angina and positive stress test Postoperative Diagnosis: Critical lesion involving the RCA in the proximal portion. Mild to moderate in- stent LAD stenosis and also of borderline lesion in the diagonal branch. Procedure(s) Performed: Left heart catheterization without left ventriculography Description of Procedure: HISTORY: This is a 83-year-old gentleman with history of ischemic heart disease with previous stent placement of the left anterior descending coronary artery done about 15 years ago. Recently patient was diagnosed with shingles. Patient however came to the hospital with complaints of midsternal chest discomfort with some radiation to the left arm. His EKGs did not reveal any acute changes. Cardiac enzymes were negative. A nuclear stress test however was reported as showing reversible ischemia involving the in for lateral and inferoseptal area. Patient is advised to have cardiac catheterization CONSENT:I have discussed the risks, benefits and alternative therapies for the above-mentioned procedure and for both sedation/analgesia as well as necessary blood product administration, if indicated, as they pertain to this patient. The patient has indicated understanding and acceptance of the risks and procedures discussed. PROCEDURE: Patient was brought to the lab in a fasting state. Patient was given some IV sedation. The right groin is infiltrated with lidocaine and right femoral artery was entered using Seldinger technique. A 6-Slovak catheter was left in place and selective coronary arteriography was performed. Patient tolerated the procedure well. Patient was found to have critical lesion involving the proximal portion of the RCA. He went on to have stent placement by Dr. Chew Conscious Sedation: Trevored Clifford 1mg Fentanyl 25 g Duration 30minutes HEMODYNAMICS: The aortic pressure 160/90. Left ankle end-diastolic pressure was about 8-10. There was no gradient across the aortic valve SELECTIVE CORONARY ARTERIOGRAPHY: LEFT MAIN: Normal length and patent THE LEFT ANTERIOR DESCENDING CORONARY ARTERY:. This is a good caliber vessel with a stent in the mid LAD. There appears to be mild to moderate in-stent stenosis but doesn't appear to be critical. There is a good-sized diagonal branch which appears to have about 60-70% stenosis proximally. THE LEFT CIRCUMFLEX AND IS CORONARY ARTERY: This is a good caliber vessel giving rise to 2 OM branches. The first OM branch has about 60-70% stenosis. The second OM branch has 50-60% stenosis in the ostium. THE RIGHT CORONARY ARTERY: This is a moderate caliber vessel. It has about 80% to 90% stenosis in the proximal portion LEFT VENTRICULOGRAPHY:. Not performed FINAL IMPRESSION:, Coronary artery disease with critical lesion involving the RCA in the proximal portion. There appears to be mild to moderate in-stent stenosis involving the LAD. There is also moderate disease involving the diagonal branch, and the 2 OM branches of circumflex PLAN: Stent placement of the RCA followed by maximum medical therapy. Patient may need intervention for the diagonal, if patient continues to have chest pains PROGNOSIS: Fair
[2018-07-22] MEDS ORDERED: hydrALAZINE HCL 20 MG/ML 1 ML VIAL ONE (09:51)
[2018-07-22] MEDS: hydrALAZINE HCL 20 MG/ML 1 ML VIAL IV ONE ×2 (09:52→10:02)
[2018-07-22] MEDS ORDERED: NITROGLYCERIN 1000MCG/10ML SYRINGE INTRACORON ONE (09:54)
[2018-07-22] MEDS ORDERED: IOPAMIDOL-370 100ML BTL INJ ONE (10:03)
--- NOTE | 2018-07-22 10:48 | LTR ---
DATE OF SERVICE: 07/22/2018 RE: Benjy Snow Dear Dr. Tapia; Mr. Benjy Snow underwent successful stenting of the right coronary artery with good angiographic results and without any complication. Thank you for allowing us to participate in his care and please do not hesitate to call if you have any questions or concerns. Sincerely, MD MARK Orourke / NIKN: [id number] /
--- NOTE | 2018-07-22 12:03 | PTCA ---
PERCUTANEOUSTRANS CORORONARY ANGIOGRAPHY DATE OF SERVICE: 07/22/2018 PERFORMING PHYSICIAN: Martinez Mcfarlane MD, seafood service team member. PROCEDURE PERFORMED: Successful stenting of the proximal right coronary artery using 3.5 x 12 mm Xience KIMMIE with good angiographic results and reduction of stenosis from 80% to 0%. INDICATION: This is a pleasant 83-year-old gentleman who sees Dr. Benedict in the office as an outpatient with known history of coronary artery disease and prior stenting of the LAD long time ago as well as hypertension and dyslipidemia who presented to the hospital with chest discomfort. He was seen and evaluated by Dr. Pride. A myocardial perfusion imaging stress test was performed and came in to be abnormal showing anterior ischemia. Because of that, a heart catheterization was advised. The patient underwent heart catheterization by Dr. Pride and that revealed severe disease involving the proximal right coronary artery with intermediate to severe disease involving the first diagonal branch of the LAD with patent stent in the LAD. Because of that, PCI of the RCA was advised. APPROACH: Right common femoral artery. COMPLICATION: None. LEVEL OF SEDATION: Moderate with sedation length of 26 minutes. PROCEDURE DESCRIPTION: After diagnostic heart catheterization was performed by Dr. Pride and after reviewing the angiogram, we decided to pursue with intervention on the RCA. Anticoagulation was initiated using Angiomax. Subsequently I did engage the RCA using Clifford right posterior. After that, I wired the right coronary artery using a run- through wire. I did balloon angioplasty using 3.0 mm x 12 mm balloon before I deployed a 3.5 x 12 mm Xience drug-eluting stent where the stent was positioned under fluoroscopy guidance and deployed under 16 atmospheres for 20 seconds with the following angiogram showed good angiographic results and without any complication. The procedure was completed without any complication. POSTPROCEDURE MANAGEMENT: 1. Dual antiplatelet therapy. 2. Risk factors modifications. 3. Follow up with the patient. MMODL / IJN: [id number] /
--- NOTE | 2018-07-22 13:15 | P.PN ---
Subjective Progress Note Date: 07/22/18 This is an 82-year-old male patient of Dr. Emanuel Tapia with past medical history of bowel obstruction requiring surgery 2 years ago with ongoing and chronic constipation, coronary artery disease status post 2 stents in 1999, gastroesophageal reflux disease and peptic ulcer, diverticulitis, gout, hepatitis C, osteoarthritis. Last admitted on 07/25 and for partial small bowel obstruction managed conservatively. He was in ED last week for shingles and was treated with Valtrex. Patient did not feel well on Wednesday started having chest pain yesterday associated with shortness of breath. Chest pain was intermittent in character, associated with numbness of the left upper extremity denies any sweating or radiation of pain to the jaw or either arm. EKG did not suggest any ST or T-wave changes. Troponin 3 were negative. Vitals this morning suggests a temp of 97.9 pulse 68 respiratory rate 18 blood pressure 160/83 labs ordered suggestive of focal creatinine 1.01B UN 22, LDL 68 CBC within normal limits. Cardiology seen in the patient and suggested Lexiscan for the patient. 07/22 patient examined bedside appear confused post cardiac cath. Patient had successful stenting of the proximal portion of the RCA. He did have mid to moderate in-stent LAD stenosis and some stenosis of his diagnosis and to OM branch of circumflex. Patient is unable to provide any history or review of system. In nurse instructed to continue neuro checks and if patient's on confusion does not get better in next hours, CT head will be ordered. Objective - Vital Signs Vital signs: Vital Signs Temp 97.7 F 07/22/18 07:55 Pulse 77 07/22/18 11:52 Resp 16 07/22/18 11:52 BP 106/72 07/22/18 11:52 Pulse Ox 94 L 07/22/18 11:52 Intake & Output 07/21/18 07/22/18 07/22/18 18:59 06:59 18:59 Intake Total 436 205.57 127 Balance 436 205.57 127 Weight 74.9 kg Intake: IV 127 Intake, IV Titration 205.57 Amount Heparin Sod,Pork in 0.45% 205.57 NaCl 25,000 unit In 0.45 % NaCl 1 250ml.bag @ 18 UNITS/KG/HR 13.48 mls/hr IV .[id number] [facility] Rx#: [id number] Oral 436 Other: # Voids 2 - Exam - Constitutional General appearance: cooperative, no acute distress, thin-appearing. patient laying in bed post procedure - EENT Eyes: anicteric sclerae, PERRLA, normal appearance ENT: hearing grossly normal - Neck Neck: no lymphadenopathy, normal ROM, no other, no rigidity, no stridor, no thyromegaly - Respiratory Respiratory: bilateral: CTA, negative: diminished, dullness, rales, rhonchi - Cardiovascular Rhythm: regular Heart sounds: normal: S1, S2 Abnormal Heart Sounds: no systolic murmur, no diastolic murmur - Gastrointestinal General gastrointestinal: normal bowel sounds, soft nontender - Integumentary Integumentary:herpes zoster rash on the left side of abdomen - Neurologic Neurologic: CNII-XII intact - Musculoskeletal Musculoskeletal: gaitnot asessed , strength equal bilaterally - Psychiatric Psychiatric: A&O x's 3, appropriate affect - Labs CBC & Chem 7: 07/22/18 04:57 07/20/18 13:19 Labs: Abnormal Lab Results - Last 24 Hours (Table) 07/21/18 07/22/18 Range/Units 19:26 05:00 APTT 49.9 H 78.3 H (22.0-30.0) sec Assessment and Plan Plan: #1 acute chest pain likely cardiac. Lexiscan stress test is positive suggestive of decreased uptake in the inferior lateral left ventricle and along the septum towards the base. Cardiac cath today s/p stenting of proximal RCA , patient had more mild to moderate in-stent LAD stenosis and some borderline lesion in the diagonal branch there is some moderate disease in the diagonal branch and first and second OM of circumflex. Continue metoprolol tartrate 12.5 mg twice a day. Continue Lipitor 10 mg by mouth daily at bedtime. #2 history of Small bowel obstruction probably secondary to adhesions. Follows Dr. Fernandez . Stable 2. Active shingles continue Valtrex 1000 mg every 8 3. History of coronary artery disease status post 2 stents continue aspirin, metoprolol, Lipitor 4. Gastroesophageal reflux disease and peptic ulcer disease, GI prophylaxis. Pantoprazole 40 mg by mouth daily 5. DVT prophylaxis. Heparin drip 6. Hypertension blood pressure uncontrolled on admission has improved since yesterday. We'll initiate metoprolol 12.5 twice a day Disposition likely discharge tomorrow and readmission for stenting of the other branches. 7 confusion likely secondary to medication while doing the procedure. Continue neuro checks if no improvement CT head ordered to be ordered
--- NOTE | 2018-07-22 16:12 | CDI ---
Documentation Clarification Form Date: July 22, 2018 From: Bertha Pisano CDS Gaming Worker Admit Date: 07/21/2018 2:12:00 PM Patient Name: Benjy Snow Visit Number: [id number] ATTENTION: The Clinical Documentation Specialists (CDI) and [facility] Coding Staff appreciate your assistance in clarifying documentation. Please respond to the clarification below the line at the bottom and electronically sign. The CDI & [facility] Coding staff will review the response and follow-up if needed. Please note: Queries are made part of the Legal Health Record. If you have any questions, please contact the author of this message via ITS. Dr. Clementine Arce Chest pain likely cardiac is documented in the progress note dated 07/22/18. History/Risk factors: CAD, prior cardiac stents Clinical Indicators: Labs: troponins negative Stress test suggestive of decreased uptake in inferior lateral left ventricle and along septum Cardiac Cath noted critical lesion in RCA and was stented, also mild to moderate in stent stenosis of LAD Treatment: Cardiology consult, stress text, cardiac cath with Xience stent Metoprolol 12.5 mg BID, Lipitor 10 mg daily In your professional opinion, can please clarify if the chest pain signifies, or is due to: CAD with angina (specify type of angina if known) Other condition causing chest pain, please specify Unable to determine (Last Revision: April 2017) CAD with angina MTDD
[2018-07-22] MEDS: ATORVASTATIN 10 MG TAB PO SCH (20:09)
[2018-07-23 06:49] LABS: Basophils # (A) 0.1 k/uL (0-0.2); Basophils % (A) 1 %; Eosinophils # (A) 0.4 k/uL (0-0.7); Eosinophils % (A) 3 %; HGB 15.1 gm/dL (13.0-17.5); Lymphocytes # (A) 2.6 k/uL (1.0-4.8); Lymphocytes % (A) 23 %; MCH 30.4 pg (25.0-35.0); MCHC 33.4 g/dL (31.0-37.0); MCV 90.8 fL (80.0-100.0); Mean Platelet Volume 6.9; Monocytes # (A) 0.7 k/uL (0-1.0); Monocytes % (A) 7 %; Neutrophils # (A) 6.8 k/uL (1.3-7.7); Neutrophils % (A) 62 %; Platelet Count 188 k/uL (150-450); RBC 4.96 m/uL (4.30-5.90); RDW 13.6 % (11.5-15.5); WBC 10.9 k/uL (3.8-10.6)
[2018-07-23] MEDS ORDERED: CLOPIDOGREL 75 MG TAB PO SCH (09:00)
--- NOTE | 2018-07-23 09:00 | P.PN ---
Subjective Progress Note Date: 07/23/18 This is an 82-year-old male patient of Dr. Emanuel Tapia with past medical history of bowel obstruction requiring surgery 2 years ago with ongoing and chronic constipation, coronary artery disease status post 2 stents in 1999, gastroesophageal reflux disease and peptic ulcer, diverticulitis, gout, hepatitis C, osteoarthritis. Last admitted on 07/25 and for partial small bowel obstruction managed conservatively. He was in ED last week for shingles and was treated with Valtrex. Patient did not feel well on Wednesday started having chest pain yesterday associated with shortness of breath. Chest pain was intermittent in character, associated with numbness of the left upper extremity denies any sweating or radiation of pain to the jaw or either arm. EKG did not suggest any ST or T-wave changes. Troponin 3 were negative. Vitals this morning suggests a temp of 97.9 pulse 68 respiratory rate 18 blood pressure 160/83 labs ordered suggestive of focal creatinine 1.01B UN 22, LDL 68 CBC within normal limits. Cardiology seen in the patient and suggested Lexiscan for the patient. 07/22 patient examined bedside appear confused post cardiac cath. Patient had successful stenting of the proximal portion of the RCA. He did have mid to moderate in-stent LAD stenosis and some stenosis of his diagnosis and to OM branch of circumflex. Patient is unable to provide any history or review of system. In nurse instructed to continue neuro checks and if patient's on confusion does not get better in next hours, CT head will be ordered. 07/23: Objective - Vital Signs Vital signs: Vital Signs Temp 97.6 F 07/23/18 04:00 Pulse 67 07/23/18 04:00 Resp 18 07/23/18 04:00 BP 129/69 07/23/18 04:00 Pulse Ox 97 07/23/18 04:00 Intake & Output 07/22/18 07/23/18 07/23/18 18:59 06:59 18:59 Intake Total 327 Balance 327 Weight 72.6 kg Intake: IV 127 Oral 200 Other: Voiding Method Toilet # Voids 1 1 - Labs CBC & Chem 7: 07/23/18 06:02 07/20/18 13:19 Labs: Abnormal Lab Results - Last 24 Hours (Table) 07/23/18 Range/Units 06:02 WBC 10.9 H (3.8-10.6) k/uL Assessment and Plan Plan: #1 acute chest pain likely cardiac. Lexiscan stress test is positive suggestive of decreased uptake in the inferior lateral left ventricle and along the septum towards the base. Cardiac cath today s/p stenting of proximal RCA , patient had more mild to moderate in-stent LAD stenosis and some borderline lesion in the diagonal branch there is some moderate disease in the diagonal branch and first and second OM of circumflex. Continue metoprolol tartrate 12.5 mg twice a day. Continue Lipitor 10 mg by mouth daily at bedtime. #2 history of Small bowel obstruction probably secondary to adhesions. Follows Dr. Fernandez . Stable 2. Active shingles continue Valtrex 1000 mg every 8 3. History of coronary artery disease status post 2 stents continue aspirin, metoprolol, Lipitor 4. Gastroesophageal reflux disease and peptic ulcer disease, GI prophylaxis. Pantoprazole 40 mg by mouth daily 5. DVT prophylaxis. Heparin drip 6. Hypertension blood pressure uncontrolled on admission has improved since yesterday. We'll initiate metoprolol 12.5 twice a day Disposition likely discharge tomorrow and readmission for stenting of the other branches. 7 confusion likely secondary to medication while doing the procedure. Continue neuro checks if no improvement CT head ordered to be ordered
[2018-07-23] MEDS: valACYclovir HCL 1,000 MG TABLET PO SCH (09:16)
[2018-07-23] MEDS: ASPIRIN 325 MG TAB PO SCH (09:16)
[2018-07-23] MEDS: METOPROLOL TARTRATE 12.5 MG TAB PO SCH (09:16)
[2018-07-23] MEDS: LOSARTAN 50 MG TAB PO SCH (09:16)
[2018-07-23 09:40] VITALS: TEMP 97.9
[2018-07-23 09:47] LABS: Calcium 9.2 mg/dL (8.4-10.2); Potassium 3.9 mmol/L (3.5-5.1)
[2018-07-23 12:46] VITALS: BP 141/70; PULSE 70; RESP 17
--- NOTE | 2018-07-23 13:18 | P.DS ---
Providers Date of admission: 07/21/18 14:12 Attending physician: Clementine Arce MD Consults: 07/20/18 15:45 Consult Physician Urgent Consulting Provider: Jamel Benedict Consult Reason/Comments: chest pain Do you want consulting provider notified?: Yes Primary care physician: Emanuel Tapia [facility] Course: This is an 82-year-old male patient of Dr. Emanuel Tapia with past medical history of bowel obstruction requiring surgery 2 years ago with ongoing and chronic constipation, coronary artery disease status post 2 stents in 1999, gastroesophageal reflux disease and peptic ulcer, diverticulitis, gout, hepatitis C, osteoarthritis. Last admitted on 07/25 and for partial small bowel obstruction managed conservatively. He was in ED last week for shingles and was treated with Valtrex. Patient did not feel well on Wednesday started having chest pain yesterday associated with shortness of breath. Chest pain was intermittent in character, associated with numbness of the left upper extremity denies any sweating or radiation of pain to the jaw or either arm. EKG did not suggest any ST or T-wave changes. Troponin 3 were negative. Vitals this morning suggests a temp of 97.9 pulse 68 respiratory rate 18 blood pressure 160/83 labs ordered suggestive of focal creatinine 1.01B UN 22, LDL 68 CBC within normal limits. Cardiology seen in the patient and suggested Lexiscan for the patient. 07/22 patient examined bedside appear confused post cardiac cath. Patient had successful stenting of the proximal portion of the RCA. He did have mid to moderate in-stent LAD stenosis and some stenosis of his diagnosis and to OM branch of circumflex. Patient is unable to provide any history or review of system. In nurse instructed to continue neuro checks and if patient's on confusion does not get better in next hours, CT head will be ordered. 07/23: Patient is resting comfortably in the bed without any complaints. Patient does not have any complaints of confusion he is able to answer questions appropriately and he has been up and around walking without any difficulties. Patient has been seen by cardiology this morning was cleared for discharge. Patient denies any chest pain, difficulty breathing, pain at the puncture site. #1 acute chest pain likely cardiac. Lexiscan stress test is positive suggestive of decreased uptake in the inferior lateral left ventricle and along the septum towards the base. Cardiac cath today s/p stenting of proximal RCA , #2 history of Small bowel obstruction probably secondary to adhesions. #3 Active shingles continue Valtrex 1000 mg every 8 # 4 History of coronary artery disease status post 2 stents #5 Gastroesophageal reflux disease and peptic ulcer disease 6. Hypertension blood pressure uncontrolled on admission has improved since yesterday. 7 confusion likely secondary to medication while doing the procedure. Disposition: Home with self-care Impression and plan of care have been directed as dictated by the signing physician. Tamie Hart nurse practitioner acting as scribe for signing physician. Patient Condition at Discharge: Fair Plan - Discharge Summary Discharge Rx Participant: No New Discharge Prescriptions: New Clopidogrel [Plavix] 75 mg PO DAILY #30 tab Losartan [Cozaar] 50 mg PO DAILY #30 tab Metoprolol Tartrate [Lopressor] 12.5 mg PO BID #60 tab Continue Simvastatin [Zocor] 20 mg PO HS Aspirin 81 mg PO HS Esomeprazole Magnesium [NexIUM] 20 mg PO DAILY PRN PRN Reason: Heartburn valACYclovir HCL [Valtrex] 1,000 mg PO Q8HR #30 tab Discharge Medication List Aspirin 81 mg PO HS 02/23/14 [History] Simvastatin [Zocor] 20 mg PO HS 02/23/14 [History] Esomeprazole Magnesium [NexIUM] 20 mg PO DAILY PRN 08/14/17 [History] valACYclovir HCL [Valtrex] 1,000 mg PO Q8HR #30 tab 07/18/18 [Rx] Clopidogrel [Plavix] 75 mg PO DAILY #30 tab 07/23/18 [Rx] Losartan [Cozaar] 50 mg PO DAILY #30 tab 07/23/18 [Rx] Metoprolol Tartrate [Lopressor] 12.5 mg PO BID #60 tab 07/23/18 [Rx] Follow up Appointment(s)/Referral(s): Jamel Benedict MD [STAFF PHYSICIAN] - 2 Weeks Emanuel Tapia MD [Primary Care Provider] - 1-2 days Patient Instructions/Handouts: Chest Pain (GEN)
--- NOTE | 2018-07-23 13:47 | P.PN ---
Subjective Patient is doing well his ablating the hallways no chest pain dizziness lightheadedness or palpitations Vitals are stable blood pressure 139/80 mmHg pulse rate in the 70s he is afebrile Head and neck examination is normal heart sounds normal breath sounds are clear Abdomen soft nontender Extremities are warm no edema Impression Coronary artery disease Abnormal stress test with anterior ischemia Successful stenting of the proximal RCA yesterday He is intermediate to severe disease of the first tactile branch and a patent stent to the LAD in the past Suggest Continue current medications continue dual antiplatelet therapy with aspirin and Plavix continue simvastatin continue losartan and metoprolol and follow Dr. Benedict within the next 2 weeks Objective - Vital Signs Vital signs: Vital Signs Temp 97.9 F 07/23/18 08:00 Pulse 70 07/23/18 12:20 Resp 17 07/23/18 12:20 BP 141/70 07/23/18 12:20 Pulse Ox 97 07/23/18 12:20 Intake & Output 07/22/18 07/23/18 07/23/18 18:59 06:59 18:59 Intake Total 327 Output Total 150 Balance 327 -150 Weight 72.6 kg Intake: IV 127 Oral 200 Output: Urine 150 Other: Voiding Method Toilet # Voids 1 1 - Labs CBC & Chem 7: 07/23/18 06:02 07/23/18 06:20 Labs: Abnormal Lab Results - Last 24 Hours (Table) 07/23/18 07/23/18 Range/Units 06:02 06:20 WBC 10.9 H (3.8-10.6) k/uL Chloride 110 H (98-107) mmol/L Carbon Dioxide 20 L (22-30) mmol/L
== END 2018-07-23 14:25 | disposition home or self-care (01) | DRG 247 ==
LOC: EC 12:49 → 1SOBS 16:14 → UNDOADMOB 16:14 → 1SOBS 16:40 → INTOOBSV 07-21 14:12 → OBSVTOIN 07-21 14:12 → 1SOBS 07-22 10:19 → 3SCARD 07-22 10:19
PROVIDERS: ADMIT Internal Medicine; ATTEND Internal Medicine
PROC: 027034Z Dilation of Coronary Artery, One Artery with Drug-eluting Intraluminal Device, Percutaneous Approach (ICD-10-PCS; principal; 2018-07-21)
PROC: B2111ZZ Fluoroscopy of Multiple Coronary Arteries using Low Osmolar Contrast (ICD-10-PCS; 2018-07-22)
PROC: 4A023N7 Measurement of Cardiac Sampling and Pressure, Left Heart, Percutaneous Approach (ICD-10-PCS; 2018-07-22 08:45)
DX: I25.110 Atherosclerotic heart disease of native coronary artery with unstable angina pectoris (principal); T82.855A Stenosis of coronary artery stent, initial encounter; K59.09 Other constipation; M10.9 Gout, unspecified; K21.9 Gastro-esophageal reflux disease without esophagitis; B19.20 Unspecified viral hepatitis C without hepatic coma; M19.90 Unspecified osteoarthritis, unspecified site; R41.0 Disorientation, unspecified; Y71.2 Prosthetic and other implants, materials and accessory cardiovascular devices associated with adverse incidents; E78.5 Hyperlipidemia, unspecified; I10 Essential (primary) hypertension; I44.0 Atrioventricular block, first degree; T50.905A Adverse effect of unspecified drugs, medicaments and biological substances, initial encounter; Y92.239 Unspecified place in hospital as the place of occurrence of the external cause; Z95.5 Presence of coronary angioplasty implant and graft; Z87.11 Personal history of peptic ulcer disease; Z90.49 Acquired absence of other specified parts of digestive tract; Z87.891 Personal history of nicotine dependence; Z79.82 Long term (current) use of aspirin; Z79.899 Other long term (current) drug therapy; Z88.0 Allergy status to penicillin; Z88.8 Allergy status to other drugs, medicaments and biological substances; Z82.49 Family history of ischemic heart disease and other diseases of the circulatory system
CPT/HCPCS: 36415; 71046; 78452; 80048; 80053; 80061; 82550; 82553; 83690; 83735; 84484; 85025; 85379; 85610; 85730; 93005; 93017; 93306; 93458; 96365; 96376; 99282; 99285; C1874

== ENCOUNTER 2018-08-09 02:59 | Observation (INO) | payer MEDICARE ==
--- NOTE | 2018-08-09 03:19 | ED ---
GI Bleed HPI - General Chief complaint: GI Bleed Stated complaint: Constipation Time Seen by Provider: 08/09/18 03:18 Source: patient Mode of arrival: ambulatory Limitations: no limitations - History of Present Illness Initial comments: Benjy is a pleasant 83 yo M with history or recurrent SBO requiring admission to the hospital in Jun 2018 as well as recent admission to the hosptial for chest pain at which time he had cardiac cath with RCA stenting, patient was discharged home on PO plavix. Patient has been following with his primary care physician for evaluation of chronic constipation. He reports he's been taking milk of magnesia and has been compliant with his other home medications. Patient reports that around 1 AM this morning he had a large loose bowel movement that he noted was black in color. Patient does have a history of upper GI bleed in the past most significant the he had a duodenal ulcer with exsanguination requiring ICU admission and transfusion when he was much younger. Patient became concerned by the black stools and came to the ER for evaluation. Patient does report he's had some epigastric discomfort nausea without vomiting for approximately 2 days duration which she had initially attributed to the constipation. Patient denies any hematemesis or coffee- ground emesis. Patient reports single episode of black stools prior to coming to the emergency department. He denies any chest pain palpitations shortness of breath lightheadedness or feelings of is going to pass out. - Related Data Home Medications Medication Instructions Recorded Confirmed Aspirin 81 mg PO 1800 02/23/14 08/05/18 Simvastatin [Zocor] 20 mg PO HS 02/23/14 08/05/18 Esomeprazole Magnesium [NexIUM] 20 mg PO DAILY PRN 08/14/17 08/05/18 Clopidogrel [Plavix] 75 mg PO 1800 08/05/18 08/05/18 Isosorbide Mononitrate ER [Imdur] 30 mg PO DAILY 08/05/18 08/05/18 Losartan [Cozaar] 50 mg PO 1800 08/05/18 08/05/18 Previous Rx's Medication Instructions Recorded Metoprolol Tartrate [Lopressor] 12.5 mg PO BID #60 tab 07/23/18 Allergies Allergy/AdvReac Type Severity Reaction Status Date / Time Penicillins Allergy Rash/Hives Verified 08/09/18 03:04 prednisone Allergy Rash/Hives Verified 08/09/18 03:04 Review of Systems ROS Statement: Those systems with pertinent positive or pertinent negative responses have been documented in the HPI. ROS Other: All systems not noted in ROS Statement are negative. Past Medical History Past Medical History: Asthma, Coronary Artery Disease (CAD), GERD/Reflux, Hearing Disorder / Deafness, Hyperlipidemia, Osteoarthritis (OA) Additional Past Medical History / Comment(s): hepatitis c -PAST HISTORY , peptic ulcer ,ANEMIA,MILD LEAKY VALVE.GOUT,DIVERTICULITIS, shingles History of Any Multi-Drug Resistant Organisms: None Reported Past Surgical History: Bowel Resection, Cholecystectomy, Heart Catheterization With Stent, Orthopedic Surgery Additional Past Surgical History / Comment(s): BILATERAL CATARACT SURGERY, RT ROTATOR CUFF, RT KNEE ARTHROSCOPY,LIPOMA REMOVED , laparotomy with release of small bowel obstruction Past Anesthesia/Blood Transfusion Reactions: Blood Transfusion Reaction Additional Past Anesthesia/Blood Transfusion Reaction / Comment(s): CONTRACTED HEP C FROM A BLOOD TRANSFUSION 35-40 YEARS AGO. Date of Last Stent Placement:: JUN 2018 Past Psychological History: No Psychological Hx Reported Smoking Status: Former smoker - Past Family History Mother Family Medical History: Cancer Additional Family Medical History / Comment(s): Other at age 80 from acute kidney injury following surgery. Father Family Medical History: Cancer, Pulmonary Embolus Additional Family Medical History / Comment(s): LUNG CANCER Brother(s) Family Medical History: Cancer, Coronary Artery Disease (CAD) Additional Family Medical History / Comment(s): Patient has one brother with history of non-Hodgkin's lymphoma diagnosed 15 YEARS AGO General Exam - General Exam Comments Initial Comments: Physical Exam GENERAL: Patient is well-developed and well-nourished. Patient is nontoxic and well- hydrated and is in no distress. HENT: Normocephalic, Atraumatic. EYES: PERRL, EOMI PULMONARY: Unlabored respirations. No audible rales rhonchi or wheezing was noted. CARDIOVASCULAR: There is a regular rate and rhythm without any murmurs gallops or rubs. ABDOMEN: Soft and nontender with normal bowel sounds. SKIN: Skin is clear with no lesions or rashes and otherwise unremarkable. : Normal external genitalia Rectal exam with normal tone, small external hemorrhoids, dark stool in rectal vault NEUROLOGIC: Patient is alert and oriented x3. Moving all extremities spontaneously MUSCULOSKELETAL: Normal extremities with adequate strength and full range of motion. No lower extremity swelling or edema. No calf tenderness. PSYCHIATRIC: Normal psychiatric evaluation. Limitations: no limitations Limitations: no limitations Course Vital Signs 08/09/18 03:00 Temperature 98.2 F Pulse Rate 72 Respiratory 16 Rate Blood Pressure 153/81 O2 Sat by Pulse 97 Oximetry Medical Decision Making - Medical Decision Making Patient was seen and evaluated history was obtained from patient and review of medical record She recently started on Plavix approximately 2 weeks ago now presenting with black stools. Patient does have a history most significant for ulcers in the past as well as a perforated duodenal ulcer with hemorrhage which resulted in exsanguination requiring massive transfusion when patient was much younger. Patient has not had an upper endoscopy and a number of years. Patients caught stool is positive, hemoglobin stable at 15 BUN/creatinine are elevated which is consistent with upper GI bleeding Considering the patient's significant history of GI bleeding as well as recently being started on an antiplatelet medication A do feel he warrants admission to the hospital for further evaluation by gastroenterology and reevaluation by cardiology for discussion of alternative to Plavix. Patient care was discussed with Dr. Loera who agrees with this plan. Request that GI and cardiology be consulted. Protonix 40 mg twice a day be ordered. These orders were placed. Admission orders were placed. Patient was updated on plan. The patient remained hemodynamically stable throughout his ER stay. - Lab Data Result diagrams: 08/09/18 03:30 08/09/18 03:30 Lab Results 08/09/18 08/09/18 08/09/18 Range/Units 03:30 03:30 03:30 WBC 12.1 H (3.8-10.6) k/uL RBC 4.74 (4.30-5.90) m/uL Hgb 15.4 (13.0-17.5) gm/dL Hct 42.9 (39.0-53.0) % MCV 90.6 (80.0-100.0) fL MCH 32.6 (25.0-35.0) pg MCHC 36.0 (31.0-37.0) g/dL RDW 13.7 (11.5-15.5) % Plt Count 254 (150-450) k/uL Neutrophils % 66 % Lymphocytes % 20 % Monocytes % 6 % Eosinophils % 4 % Basophils % 1 % Neutrophils # 8.0 H (1.3-7.7) k/uL Lymphocytes # 2.4 (1.0-4.8) k/uL Monocytes # 0.8 (0-1.0) k/uL Eosinophils # 0.5 (0-0.7) k/uL Basophils # 0.1 (0-0.2) k/uL APTT (22.0-30.0) sec Sodium 136 L (137-145) mmol/L Potassium 4.2 (3.5-5.1) mmol/L Chloride 107 (98-107) mmol/L Carbon Dioxide 21 L (22-30) mmol/L Anion Gap 8 mmol/L BUN 24 H (9-20) mg/dL Creatinine 1.25 (0.66-1.25) mg/dL Est GFR (CKD-EPI)AfAm 63 (>60 ml/min/1.73 sqM) Est GFR (CKD-EPI)NonAf 54 (>60 ml/min/1.73 sqM) Glucose 99 (74-99) mg/dL Calcium 8.9 (8.4-10.2) mg/dL Total Bilirubin 0.7 (0.2-1.3) mg/dL AST 30 (17-59) U/L ALT 38 (21-72) U/L Alkaline Phosphatase 74 (38-126) U/L Total Creatine Kinase 59 (55-170) U/L CK-MB (CK-2) 0.4 (0.0-2.4) ng/mL CK-MB (CK-2) Rel Index 0.7 Troponin I <0.012 (0.000-0.034) ng/mL Total Protein 7.0 (6.3-8.2) g/dL Albumin 4.0 (3.5-5.0) g/dL Lipase 61 (23-300) U/L Stool Occult Blood (Negative) 08/09/18 08/09/18 Range/Units 03:30 03:30 WBC (3.8-10.6) k/uL RBC (4.30-5.90) m/uL Hgb (13.0-17.5) gm/dL Hct (39.0-53.0) % MCV (80.0-100.0) fL MCH (25.0-35.0) pg MCHC (31.0-37.0) g/dL RDW (11.5-15.5) % Plt Count (150-450) k/uL Neutrophils % % Lymphocytes % % Monocytes % % Eosinophils % % Basophils % % Neutrophils # (1.3-7.7) k/uL Lymphocytes # (1.0-4.8) k/uL Monocytes # (0-1.0) k/uL Eosinophils # (0-0.7) k/uL Basophils # (0-0.2) k/uL APTT 23.7 (22.0-30.0) sec Sodium (137-145) mmol/L Potassium (3.5-5.1) mmol/L Chloride (98-107) mmol/L Carbon Dioxide (22-30) mmol/L Anion Gap mmol/L BUN (9-20) mg/dL Creatinine (0.66-1.25) mg/dL Est GFR (CKD-EPI)AfAm (>60 ml/min/1.73 sqM) Est GFR (CKD-EPI)NonAf (>60 ml/min/1.73 sqM) Glucose (74-99) mg/dL Calcium (8.4-10.2) mg/dL Total Bilirubin (0.2-1.3) mg/dL AST (17-59) U/L ALT (21-72) U/L Alkaline Phosphatase (38-126) U/L Total Creatine Kinase (55-170) U/L CK-MB (CK-2) (0.0-2.4) ng/mL CK-MB (CK-2) Rel Index Troponin I (0.000-0.034) ng/mL Total Protein (6.3-8.2) g/dL Albumin (3.5-5.0) g/dL Lipase (23-300) U/L Stool Occult Blood Positive (Negative) Disposition Clinical Impression: GIB (gastrointestinal bleeding) Disposition: ADMITTED IP TO THIS HOSP Condition: Serious Referrals: Emanuel Tapia MD [Primary Care Provider] - 1-2 days
[2018-08-09] MEDS ORDERED: PANTOPRAZOLE 40 MG/10 ML VIAL IVP STA (03:32)
[2018-08-09] MEDS ORDERED: SODIUM CHLORIDE 0.9% 1,000 ML IV STA (03:32)
[2018-08-09 04:05] LABS: Basophils # (A) 0.1 k/uL (0-0.2); Basophils % (A) 1 %; Eosinophils # (A) 0.5 k/uL (0-0.7); Eosinophils % (A) 4 %; HCT 42.9 % (39.0-53.0); HGB 15.4 gm/dL (13.0-17.5); Lymphocytes # (A) 2.4 k/uL (1.0-4.8); Lymphocytes % (A) 20 %; MCH 32.6 pg (25.0-35.0); MCV 90.6 fL (80.0-100.0); Mean Platelet Volume 6.4; Monocytes # (A) 0.8 k/uL (0-1.0); Monocytes % (A) 6 %; Neutrophils % (A) 66 %; Platelet Count 254 k/uL (150-450); RBC 4.74 m/uL (4.30-5.90); RDW 13.7 % (11.5-15.5); WBC 12.1 k/uL (3.8-10.6)
[2018-08-09 04:13] LABS: Creatine Kinase 59 U/L (55-170)
[2018-08-09 04:17] LABS: Calcium 8.9 mg/dL (8.4-10.2); Total Bilirubin 0.7 mg/dL (0.2-1.3)
[2018-08-09 04:18] LABS: Potassium 4.2 mmol/L (3.5-5.1)
[2018-08-09 04:26] LABS: Creatine Kinase MB 0.4 ng/mL (0.0-2.4); Troponin I <0.012 ng/mL (0.000-0.034)
[2018-08-09] MEDS ORDERED: NALOXONE 0.4 MG/ML 1 ML VIAL IV PRN (04:34)
[2018-08-09] MEDS: SODIUM CHLORIDE 0.9% 1,000 ML IV SCH ×2 (05:02→17:57)
[2018-08-09] MEDS ORDERED: MORPHINE SULFATE 2 MG/ML SYRINGE IVP STA (06:25)
[2018-08-09] MEDS ORDERED: ONDANSETRON 4 MG/2 ML VIAL IVP STA (06:37)
[2018-08-09] MEDS: PANTOPRAZOLE 40 MG/10 ML VIAL IVP SCH ×2 (08:24→21:00)
--- NOTE | 2018-08-09 13:32 | P.CRDCN ---
History of Present Illness History of present illness: This is a pleasant 83-year-old male past medical history significant for coronary artery disease s/p recent stent placement 07/22 maintained on dual anti-platelet therapy. He also has dyslipidemia, gastroesophageal reflux disease and was recently diagnosed with shingles. He follows with Dr. Benedict in the office. He came to the hospital under June with symptoms of chest discomfort and underwent Lexiscan stress test which showed evidence of reversibility. He underwent cardiac catheterization at that time that revealed his left main artery was normal and patent, LAD with a patent stent in the midportion with mild to moderate in-stent restenosis but did not appear to be critical and 60-70% stenosis proximally, circumflex artery gives rise to 2 OM branches the first OM has about 60-70% stenosis and the second OM has 50-60% stenosis at the ostium, RCA has 80-90% stenosis proximally. He underwent successful stent placement to the RCA at that time. He states for the last week or so he has been constipated. He has been following with his PCP and been attempting to have a bowel movement. He finally had one yesterday that was black in color. He also describes a mild pain in the left upper quadrant. He denies chest pain, dizziness, shortness of breath, nausea, vomiting or diaphoresis. He also denies any kamlesh bright red bleeding. He has been taking his medications everyday as prescribed. Dr. Benedict was planning to do further elective angioplasties today. No EKG obtained on admission. Laboratory data reviewed, WBC 12.1, hemoglobin 15.4, platelets 254, sodium 136, potassium 4.2, creatinine 1.25, cardiac enzymes negative 1 and positive for stool occult blood. Current cardiac medications include aspirin 81 mg daily, Plavix 75 mg daily, Imdur 30 mg daily, simvastatin 20 mg daily, Lopressor 12.5 mg twice a day losartan 50 mg daily. Echocardiogram obtained June 2018 reveals preserved left ventricular systolic function with ejection fraction 55-60%. At the time of my exam: CONSTITUTIONAL: Denies fever. Denies chills. EYES: Denies blurred vision. Denies vision changes. Denies eye pain. EARS, NOSE, MOUTH & THROAT: Denies headache. Denies sore throat. Denies ear pain. CARDIOVASCULAR: Denies chest pain. Denies shortness of breath. Denies orthopnea. Denies PND. Denies palpitations. RESPIRATORY: Denies cough. GASTROINTESTINAL: Denies abdominal pain. Denies diarrhea. Denies constipation. Denies nausea. Denies vomiting. MUSCULOSKELETAL: Denies myalgias. INTEGUMENTARY: Denies pruitis. Denies rash. NEUROLOGIC: Denies numbness. Denies tingling. Denies weakness. PSYCHIATRIC: Denies anxiety. Denies depression. ENDOCRINE: Denies fatigue. Denies weight change. Denies polydipsia. Denies polyurina. GENITOURINARY: Denies burning, hematuria or urgency with micturation. HEMATOLOGIC: Denies history of anemia. Complains of black stools. Denies kamlesh bright red bleeding. Blood pressure 149/79 heart rate 60 afebrile maintaining oxygen saturation on room air GENERAL: This is a 83-year-old male in no apparent distress at the time of my examination. HEENT: Head is atraumatic, normocephalic. Pupils are equal, round. Sclerae anicteric. Conjunctivae are clear. Mucous membranes of the mouth are moist. Neck is supple. There is no jugular venous distention. No carotid bruit is heard. LUNGS: Clear to auscultation no wheezes, rales or rhonchi. No chest wall tenderness is noted on palpation or with deep breathing. HEART: Regular rate and rhythm without murmurs, rubs or gallops. S1 and S2 heard. ABDOMEN: Soft, nontender. Bowel sounds are heard. No organomegaly noted. EXTREMITIES: No evidence of peripheral edema and no calf tenderness noted. VASCULAR: Radial and dorsalis pedis pulses palpated, no evidence of clubbing. NEUROLOGIC: Patient is awake, alert and oriented x3. ASSESSMENT Black stools on dual anti-platelet therapy. Stable hemoglobin on admission Coronary artery disease s/p recent stent placement, maintained on dual anti- platelet therapy Hypertension Dyslipidemia PLAN Obtain EKG. Resume plavix and aspirin. This should not be discontinued due to recent stent placement. Especially with stable hemoglobin. Continue lopressor, losartan, imdur and atorvastatin at home doses. Check serial hemoglobin level and continue to observe for another 24 hours. Thank you kindly for this consultation. Nurse Practitioner note has been reviewed, I agree with a documented findings and plan of care. Patient was seen and examined. Past Medical History Past Medical History: Asthma, Coronary Artery Disease (CAD), GERD/Reflux, GI Bleed, Hearing Disorder / Deafness, Hyperlipidemia, Liver Disease, Osteoarthritis (OA) Additional Past Medical History / Comment(s): Recurrent SBO d/t adhesions with conservative treatment and surgical treatment, recent chest pain with PCI and stent-pt states he was to have another cardiac cath today/? 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 History of Any Multi-Drug Resistant Organisms: None Reported Past Surgical History: Bowel Resection, Cholecystectomy, Heart Catheterization With Stent, Orthopedic Surgery Additional Past Surgical History / Comment(s): 06/2018 PCI with stent, 1999 PCI with 2 stents, laparotomy with lysis of adhesions, R rotator cuff repair, R knee arthroscopy, R upper chest lipoma removed, bilateral cataract removals/ lens implants, EGD and colonoscopies with pre cancerous polypectomies-last colonoscopy in 2018 was normal per pt. Past Anesthesia/Blood Transfusion Reactions: Blood Transfusion Reaction Additional Past Anesthesia/Blood Transfusion Reaction / Comment(s): CONTRACTED HEP C FROM A BLOOD TRANSFUSION 35-40 YEARS AGO. Date of Last Stent Placement:: JUN 2018 Smoking Status: Former smoker - Past Family History Mother Family Medical History: Cancer Additional Family Medical History / Comment(s): Other at age 80 from acute kidney injury following surgery. Father Family Medical History: Cancer, Pulmonary Embolus Additional Family Medical History / Comment(s): LUNG CANCER Brother(s) Family Medical History: Cancer, Coronary Artery Disease (CAD) Additional Family Medical History / Comment(s): Patient has one brother with history of non-Hodgkin's lymphoma diagnosed 15 YEARS AGO Medications and Allergies Home Medications Medication Instructions Recorded Confirmed Type Aspirin 81 mg PO DAILY@1800 02/23/14 08/09/18 History Simvastatin [Zocor] 20 mg PO HS 02/23/14 08/09/18 History Esomeprazole Magnesium [NexIUM] 20 mg PO DAILY PRN 08/14/17 08/09/18 History Metoprolol Tartrate [Lopressor] 12.5 mg PO BID #60 tab 07/23/18 08/09/18 Rx Clopidogrel [Plavix] 75 mg PO DAILY@1800 08/05/18 08/09/18 History Isosorbide Mononitrate ER [Imdur] 30 mg PO QAM 08/05/18 08/09/18 History Losartan [Cozaar] 50 mg PO DAILY@1800 08/05/18 08/09/18 History Allergies Allergy/AdvReac Type Severity Reaction Status Date / Time Penicillins Allergy Rash/Hives Verified 08/09/18 06:54 prednisone Allergy Rash/Hives Verified 08/09/18 06:54 Physical Exam Vitals: Vital Signs Temp Pulse Resp BP Pulse Ox 08/09/18 10:48 98.2 F 60 18 149/79 96 08/09/18 06:10 64 15 161/88 08/09/18 05:40 56 L 19 152/86 94 L 08/09/18 05:10 65 20 141/82 97 08/09/18 04:40 64 17 147/83 97 08/09/18 04:30 64 20 147/83 95 08/09/18 04:10 60 15 147/83 95 08/09/18 04:00 61 15 150/89 95 08/09/18 03:50 65 14 08/09/18 03:40 66 14 08/09/18 03:39 24 08/09/18 03:00 98.2 F 72 16 153/81 97 Intake and Output 08/08/18 08/09/18 08/09/18 22:59 06:59 14:59 Other: Weight 72.575 kg Results 08/09/18 03:30 08/09/18 03:30 Cardiac Enzymes 08/09/18 08/09/18 Range/Units 03:30 03:30 AST 30 (17-59) U/L CK-MB (CK-2) 0.4 (0.0-2.4) ng/mL Troponin I <0.012 (0.000-0.034) ng/mL Coagulation 08/09/18 Range/Units 03:30 APTT 23.7 (22.0-30.0) sec CBC 08/09/18 Range/Units 03:30 WBC 12.1 H (3.8-10.6) k/uL RBC 4.74 (4.30-5.90) m/uL Hgb 15.4 (13.0-17.5) gm/dL Hct 42.9 (39.0-53.0) % Plt Count 254 (150-450) k/uL Comprehensive Metabolic Panel 08/09/18 Range/Units 03:30 Sodium 136 L (137-145) mmol/L Potassium 4.2 (3.5-5.1) mmol/L Chloride 107 (98-107) mmol/L Carbon Dioxide 21 L (22-30) mmol/L BUN 24 H (9-20) mg/dL Creatinine 1.25 (0.66-1.25) mg/dL Glucose 99 (74-99) mg/dL Calcium 8.9 (8.4-10.2) mg/dL AST 30 (17-59) U/L ALT 38 (21-72) U/L Alkaline Phosphatase 74 (38-126) U/L Total Protein 7.0 (6.3-8.2) g/dL Albumin 4.0 (3.5-5.0) g/dL Current Medications Generic Name Dose Route Start Last Admin Trade Name Freq PRN Reason Stop Dose Admin Aspirin 81 mg 08/09/18 18:00 Aspirin PO DAILY@1800 [facility] Clopidogrel Bisulfate 75 mg 08/09/18 18:00 Plavix PO DAILY@1800 [facility] Sodium Chloride 1,000 mls @ 75 mls/hr 08/09/18 03:32 08/09/18 03:54 Saline 0.9% IV 08/09/18 16:51 75 mls/hr .[id number] STA Administration Sodium Chloride 1,000 mls @ 75 mls/hr 08/09/18 04:45 08/09/18 05:02 Saline 0.9% IV Not Given .[id number] [facility] Isosorbide Mononitrate 30 mg 08/09/18 12:45 Imdur PO QAM [facility] Losartan Potassium 50 mg 08/09/18 18:00 Cozaar PO DAILY@1800 [facility] Metoprolol Tartrate 12.5 mg 08/09/18 21:00 Lopressor PO BID [facility] Naloxone HCl 0.2 mg 08/09/18 04:34 Narcan IV Q2M PRN Opioid Reversal Pantoprazole Sodium 40 mg 08/09/18 09:00 08/09/18 08:24 Protonix IVP Not Given BID SANA Intake and Output 08/08/18 08/09/18 08/09/18 22:59 06:59 14:59 Other: Weight 72.575 kg 08/09/18 03:30 08/09/18 03:30
[2018-08-09] MEDS: ISOSORBIDE MONONITRATE ER 30 MG TAB.ER.24H PO SCH (14:09)
--- NOTE | 2018-08-09 15:06 | P.HPIM ---
History of Present Illness H&P Date: 08/09/18 Chief Complaint: Rectal bleeding This is an 83-year-old male patient of Dr. Hall and Dr. Benedict with past medical history of bowel obstruction requiring surgery 2 years ago with ongoing and chronic constipation, coronary artery disease status post 2 stents in 1999, heart catheterization and stent of the proximal portion of the RCA done on 07/22/2018, gastroesophageal reflux disease and peptic ulcer with previous GI bleed 40 years ago with a drop of his hemoglobin to to being transferred to [facility] status post transfusion of 15 units of packed RBCs and platelets as well., GI bleed 20 years ago secondary to gastritis from medications, hepatitis C with exposure most likely during blood transfusions for GI bleed successfully treated, gout, osteoarthritis. He has had admissions June 2017 and July 2017 which time he was treated for partial small bowel obstruction with conservative management. Patient was discharged home on July 23 on Plavix and baby aspirin. Patient complains of constipation, abdominal pain nausea without vomiting for about 1 week. Abdominal pain is in the right upper quadrant and left upper quadrant. He states he occasionally takes Aleve for headaches but has not done so for the past 3 weeks. He denies any other nonsteroidal anti-inflammatory intake. He he started having loose stools that were black at 11 PM last night. He has had for liquid bowel movements so far today. He denies any sick contacts. He denies having any chest pain. Patient presented to [facility] emergency center for evaluation. WBC 12.1, hemoglobin 15.4, platelets 254, sodium 136, potassium 4.2, creatinine 1.25, cardiac enzymes negative 1 and positive for stool occult blood. He has been afebrile, blood pressure 153/81, heart rate running at 66 and 70s, pulse ox 97% on room air. Patient received IV morphine, Zofran and Protonix and admitted to the Medr floor and cardiology consult and GI consult requested. Review of Systems All systems: negative Constitutional: Reports poor appetite, Denies anorexia, Denies chills, Denies fatigue, Denies fever, Denies weakness, Denies weight loss Eyes: denies blurred vision, denies pain Ears, nose, mouth and throat: Denies dental pain, Denies dysphagia, Denies headache, Denies mouth pain, Denies sore throat, Denies vertigo Cardiovascular: Denies chest pain, Denies decreased exercise tolerance, Denies dyspnea on exertion, Denies edema, Denies leg edema, Denies shortness of breath , Denies syncope Respiratory: Denies cough, Denies cough with sputum, Denies dyspnea, Denies excessive sputum, Denies hemoptysis, Denies home oxygen, Denies wheezing Gastrointestinal: Reports abdominal pain, Reports constipation, Reports diarrhea , Reports loss of appetite, Reports nausea, Denies vomiting Musculoskeletal: Denies myalgias Integumentary: Denies pruritus, Denies rash, Denies wounds Neurological: Denies aphasia, Denies change in mentation, Denies change in speech, Denies confusion, Denies gait dysfunction, Denies head injury, Denies headaches, Denies numbness, Denies seizures, Denies weakness Psychiatric: Denies anxiety, Denies depression Endocrine: Denies fatigue, Denies weight change Past Medical History Past Medical History: Asthma, Coronary Artery Disease (CAD), GERD/Reflux, GI Bleed, Hearing Disorder / Deafness, Hyperlipidemia, Liver Disease, Osteoarthritis (OA) Additional Past Medical History / Comment(s): Recurrent SBO d/t adhesions with conservative treatment and surgical treatment, recent chest pain with PCI and stent-pt states he was to have another cardiac cath today/? 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 History of Any Multi-Drug Resistant Organisms: None Reported Past Surgical History: Bowel Resection, Cholecystectomy, Heart Catheterization With Stent, Orthopedic Surgery Additional Past Surgical History / Comment(s): 06/2018 PCI with stent, 2000 PCI with 2 stents, laparotomy with lysis of adhesions, R rotator cuff repair, R knee arthroscopy, R upper chest lipoma removed, bilateral cataract removals/ lens implants, EGD and colonoscopies with pre cancerous polypectomies-last colonoscopy in 2018 was normal per pt. Past Anesthesia/Blood Transfusion Reactions: Blood Transfusion Reaction Additional Past Anesthesia/Blood Transfusion Reaction / Comment(s): CONTRACTED HEP C FROM A BLOOD TRANSFUSION 35-40 YEARS AGO. Date of Last Stent Placement:: JUN 2018 Smoking Status: Former smoker Additional Past Alcohol Use History / Comment(s): Patient was a smoker for a couple years as a teenager only. He drinks a glass of wine once a month. No illicit drug use. - Past Family History Mother Family Medical History: Cancer Additional Family Medical History / Comment(s): Other at age 80 from acute kidney injury following surgery. Father Family Medical History: Cancer, Pulmonary Embolus Additional Family Medical History / Comment(s): LUNG CANCER. Father in his mid 60s due to blood clots with history of bladder cancer Brother(s) Family Medical History: Cancer, Coronary Artery Disease (CAD) Additional Family Medical History / Comment(s): Patient has one brother with history of non-Hodgkin's lymphoma diagnosed 15 YEARS AGO. She does not have any sisters. He has adult children with no major medical problem. Medications and Allergies Home Medications Medication Instructions Recorded Confirmed Type Aspirin 81 mg PO DAILY@1800 02/23/14 08/09/18 History Simvastatin [Zocor] 20 mg PO HS 02/23/14 08/09/18 History Esomeprazole Magnesium [NexIUM] 20 mg PO DAILY PRN 08/14/17 08/09/18 History Metoprolol Tartrate [Lopressor] 12.5 mg PO BID #60 tab 07/23/18 08/09/18 Rx Clopidogrel [Plavix] 75 mg PO DAILY@1800 08/05/18 08/09/18 History Isosorbide Mononitrate ER [Imdur] 30 mg PO QAM 08/05/18 08/09/18 History Losartan [Cozaar] 50 mg PO DAILY@1800 08/05/18 08/09/18 History Allergies Allergy/AdvReac Type Severity Reaction Status Date / Time Penicillins Allergy Rash/Hives Verified 08/09/18 06:54 prednisone Allergy Rash/Hives Verified 08/09/18 06:54 Physical Exam Vitals: Vital Signs Temp Pulse Resp BP Pulse Ox 08/09/18 10:48 98.2 F 60 18 149/79 96 08/09/18 06:10 64 15 161/88 08/09/18 05:40 56 L 19 152/86 94 L 08/09/18 05:10 65 20 141/82 97 08/09/18 04:40 64 17 147/83 97 08/09/18 04:30 64 20 147/83 95 08/09/18 04:10 60 15 147/83 95 08/09/18 04:00 61 15 150/89 95 08/09/18 03:50 65 14 08/09/18 03:40 66 14 08/09/18 03:39 24 08/09/18 03:00 98.2 F 72 16 153/81 97 Intake and Output 08/08/18 08/09/18 08/09/18 22:59 06:59 14:59 Other: Weight 72.575 kg Gen: This is an 83-year-old male. He is on the ear stretcher and appears to be comfortable and in no acute distress. HEENT: Head is atraumatic, normocephalic. Pupils equal, round. Sclerae is anicteric. Conjunctiva pink. Mucous numbers of the mouth are moist. NECK: Supple. No JVD. No lymphadenopathy. No thyromegaly. LUNGS: Clear to auscultation. No wheezes or rhonchi. No intercostal retractions. HEART: Regular rate and rhythm. No murmur. ABDOMEN: Soft. Bowel sounds are present. No masses. No tenderness. EXTREMITIES: No pedal edema. No calf tenderness. Dorsalis pedis +2 bilaterally. NEUROLOGICAL: Patient is awake, alert and oriented x3. Cranial nerves 2 through 12 are grossly intact. Results CBC & Chem 7: 08/09/18 03:30 08/09/18 03:30 Labs: Abnormal Lab Results - Last 24 Hours (Table) 08/09/18 08/09/18 Range/Units 03:30 03:30 WBC 12.1 H (3.8-10.6) k/uL Neutrophils # 8.0 H (1.3-7.7) k/uL Sodium 136 L (137-145) mmol/L Carbon Dioxide 21 L (22-30) mmol/L BUN 24 H (9-20) mg/dL Thrombosis Risk Factor Assmnt - Choose All That Apply Any of the Below Risk Factors Present?: Yes Each Factor Represents 1 point: Obesity (BMI >25) Other Risk Factors: Yes Each Risk Factor Represents 3 Points: Age 75 years or older, Family history of DVT/PE Other congenital or acquired thrombophilia - If yes, enter type in comment: No Thrombosis Risk Factor Assessment Total Risk Factor Score: 7 Thrombosis Risk Factor Assessment Level: High Risk Assessment and Plan Plan: 1. Acute GI bleed with rectal bleeding and diarrhea, stable hemoglobin. C. difficile toxin will be checked. Serial CBCs. Consult with GI, patient is currently nothing by mouth, continue IV fluids at 75 mL per hour, Protonix 40 mg IV twice daily. 2. Coronary artery disease status post stent placement most recently done on July 22. Continue Imdur 30 mg daily, Plavix any 5 mg daily and aspirin 81 mg daily, Lopressor 12.5 mg twice daily. 3. Previous peptic ulcer disease and GI bleed at 20 years ago and 40 years ago. 4. 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 5. Hypertension. Continue losartan 50 mg daily, Lopressor 12.5 mg twice daily. 6. Hyperlipidemia. Patient is normally on atorvastatin which is on hold for now as patient is nothing by mouth. 7. Gastroesophageal reflux disease and peptic ulcer disease. Continue Protonix 40 mg IV twice daily. 8. DVT prophylaxis. SCDs and KERA hose Patient placed as an observation status Discharge plan: most likely return home tomorrow Impression and plan of care have been directed as dictated by the signing physician. Susi Cardona nurse practitioner acting as scribe for signing physician.
[2018-08-09 15:27] LABS: HGB 12.8 gm/dL (13.0-17.5); MCH 30.8 pg (25.0-35.0); MCHC 32.7 g/dL (31.0-37.0); Mean Platelet Volume 6.1; Platelet Count 231 k/uL (150-450); RBC 4.15 m/uL (4.30-5.90); WBC 7.8 k/uL (3.8-10.6)
[2018-08-09] MEDS: LOSARTAN 50 MG TAB PO SCH (17:56)
[2018-08-09] MEDS: CLOPIDOGREL 75 MG TAB PO SCH (17:56)
[2018-08-09] MEDS: ASPIRIN 81 MG PO SCH (17:56)
[2018-08-09] MEDS: METOPROLOL TARTRATE 12.5 MG TAB PO SCH (20:41)
[2018-08-09 23:15] LABS: HCT 35.1 % (39.0-53.0); HGB 11.6 gm/dL (13.0-17.5); MCH 30.9 pg (25.0-35.0); MCHC 33.1 g/dL (31.0-37.0); MCV 93.1 fL (80.0-100.0); Mean Platelet Volume 6.2; Platelet Count 226 k/uL (150-450); RBC 3.77 m/uL (4.30-5.90); RDW 13.9 % (11.5-15.5); WBC 8.9 k/uL (3.8-10.6)
[2018-08-10 08:46] LABS: HCT 37.1 % (39.0-53.0); HGB 12.5 gm/dL (13.0-17.5); MCH 31.3 pg (25.0-35.0); MCHC 33.7 g/dL (31.0-37.0); MCV 92.9 fL (80.0-100.0); Mean Platelet Volume 6.8; Platelet Count 208 k/uL (150-450); RBC 3.99 m/uL (4.30-5.90); RDW 13.8 % (11.5-15.5); WBC 8.1 k/uL (3.8-10.6)
[2018-08-10] MEDS: ISOSORBIDE MONONITRATE ER 30 MG TAB.ER.24H PO SCH (08:46)
[2018-08-10] MEDS: PANTOPRAZOLE 40 MG/10 ML VIAL IVP SCH ×2 (08:46→21:21)
[2018-08-10] MEDS: METOPROLOL TARTRATE 12.5 MG TAB PO SCH ×2 (08:46→21:21)
[2018-08-10 09:11] LABS: Calcium 8.4 mg/dL (8.4-10.2); Potassium 4.5 mmol/L (3.5-5.1)
[2018-08-10 09:47] VITALS: BMI 26.6
--- NOTE | 2018-08-10 13:14 | P.PN ---
Subjective This is a pleasant 83-year-old male past medical history significant for coronary artery disease s/p recent stent placement 07/22 maintained on dual anti-platelet therapy. He also has dyslipidemia, gastroesophageal reflux disease and was recently diagnosed with shingles. He follows with Dr. Benedict in the office. He came to the hospital under June with symptoms of chest discomfort and underwent Lexiscan stress test which showed evidence of reversibility. He underwent cardiac catheterization at that time that revealed his left main artery was normal and patent, LAD with a patent stent in the midportion with mild to moderate in-stent restenosis but did not appear to be critical and 60-70% stenosis proximally, circumflex artery gives rise to 2 OM branches the first OM has about 60-70% stenosis and the second OM has 50-60% stenosis at the ostium, RCA has 80-90% stenosis proximally. He underwent successful stent placement to the RCA at that time. He states for the last week or so he has been constipated. He has been following with his PCP and been attempting to have a bowel movement. He finally had one 2 days ago that was black in color.Serial hemoglobins have been checked and reveals an initial drop but the most recent draws have been stable above 12. He states he has not had a bowel movement since admission. He had one episode of chest pain last night while laying in bed. he denies associated shortness of breath, dizziness or palpitation. He is awaiting evaluation by surgery. Blood pressusre 144/69 heart rate 51 afebrile and maintaining oxygen saturation on room air. GENERAL: This is a 83-year-old male in no apparent distress at the time of my examination. HEENT: Head is atraumatic, normocephalic. Pupils are equal, round. Sclerae anicteric. Conjunctivae are clear. Mucous membranes of the mouth are moist. Neck is supple. There is no jugular venous distention. No carotid bruit is heard. LUNGS: Clear to auscultation no wheezes, rales or rhonchi. No chest wall tenderness is noted on palpation or with deep breathing. HEART: Regular rate and rhythm without murmurs, rubs or gallops. S1 and S2 heard. EXTREMITIES: No evidence of peripheral edema and no calf tenderness noted. ASSESSMENT Black stools on dual anti-platelet therapy. Coronary artery disease s/p recent stent placement, maintained on dual anti- platelet therapy Hypertension Dyslipidemia History of abdominal surgery and subsequent obstructions. Follows with Dr. Fernandez PLAN Continue plavix and aspirin. This should not be discontinued due to recent stent placement. Especially with stable hemoglobin. Await recommendation from surgery/GI. Check hgb/hct again tonight at 1800 then again in the morning. Further recommendations to follow. Nurse Practitioner note has been reviewed, I agree with a documented findings and plan of care. Patient was seen and examined. Objective - Vital Signs Vital signs: Vital Signs Temp 98.2 F 08/10/18 12:28 Pulse 51 L 08/10/18 12:28 Resp 17 08/10/18 12:28 BP 144/69 08/10/18 12:28 Pulse Ox 98 08/10/18 12:28 Intake & Output 08/09/18 08/10/18 08/10/18 18:59 06:59 18:59 Intake Total 500 Output Total 300 Balance 200 Weight 72.575 kg Intake: Intake, IV Titration 500 Amount Sodium Chloride 0.9% 1, 500 000 ml @ 75 mls/hr IV . [id number] [facility] Rx#:[id number] Output: Urine 300 Other: Voiding Method Toilet Toilet Urinal Urinal # Voids 2 - Labs CBC & Chem 7: 08/10/18 07:52 08/10/18 07:52 Labs: Abnormal Lab Results - Last 24 Hours (Table) 08/09/18 08/09/18 08/10/18 Range/Units 14:43 23:04 07:52 RBC 4.15 L 3.77 L 3.99 L (4.30-5.90) m/uL Hgb 12.8 L 11.6 L 12.5 L (13.0-17.5) gm/dL Hct 35.1 L 37.1 L (39.0-53.0) % Chloride (98-107) mmol/L Creatinine (0.66-1.25) mg/dL Glucose (74-99) mg/dL 08/10/18 Range/Units 07:52 RBC (4.30-5.90) m/uL Hgb (13.0-17.5) gm/dL Hct (39.0-53.0) % Chloride 109 H (98-107) mmol/L Creatinine 1.29 H (0.66-1.25) mg/dL Glucose 72 L (74-99) mg/dL
[2018-08-10] MEDS: LOSARTAN 50 MG TAB PO SCH (16:54)
[2018-08-10] MEDS: CLOPIDOGREL 75 MG TAB PO SCH (16:55)
[2018-08-10] MEDS: SODIUM CHLORIDE 0.9% 1,000 ML IV SCH ×2 (16:55→21:24)
[2018-08-10] MEDS: ASPIRIN 81 MG PO SCH (16:55)
[2018-08-10] MEDS ORDERED: ACETAMINOPHEN TAB 325 MG TAB PO PRN (17:22)
--- NOTE | 2018-08-10 18:33 | P.GSCN ---
History of Present Illness Consult date: 08/10/18 History of present illness: This is a 83-year-old male presented with a chief complaint of melena. He states he been having abdominal pain which he thought was related to constipation and then he eventually had a bowel movement which was black and tarry. He has a history of bleeding duodenal ulcer which required multiple transfusions many years ago. He states he takes Zantac from time to time when he has acid reflux but he does not take anything regularly. He has not had an EGD for many years. He currently denies any pain. He's passing flatus. His hemoglobin is been stable since his admission. He has not had a bowel movement since his admission no rectal bleeding since his admission. No nausea vomiting. He also recently had cardiac catheterization with stenting and is on Plavix. He was scheduled to undergo a second cardiac cath and possible stenting. Cardiology is following. Past Medical History Past Medical History: Asthma, Coronary Artery Disease (CAD), GERD/Reflux, GI Bleed, Hearing Disorder / Deafness, Hyperlipidemia, Liver Disease, Osteoarthritis (OA) Additional Past Medical History / Comment(s): Recurrent SBO d/t adhesions with conservative treatment and surgical treatment, recent chest pain with PCI and stent-pt states he was to have another cardiac cath today/? 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 History of Any Multi-Drug Resistant Organisms: None Reported Past Surgical History: Bowel Resection, Cholecystectomy, Heart Catheterization With Stent, Orthopedic Surgery Additional Past Surgical History / Comment(s): 06/2018 PCI with stent, 1999 PCI with 2 stents, laparotomy with lysis of adhesions, R rotator cuff repair, R knee arthroscopy, R upper chest lipoma removed, bilateral cataract removals/ lens implants, EGD and colonoscopies with pre cancerous polypectomies-last colonoscopy in 2017 was normal per pt. Past Anesthesia/Blood Transfusion Reactions: Blood Transfusion Reaction Additional Past Anesthesia/Blood Transfusion Reaction / Comm: CONTRACTED HEP C FROM A BLOOD TRANSFUSION 35-40 YEARS AGO. Date of Last Stent Placement:: JUN 2018 Smoking Status: Former smoker Additional Past Alcohol Use History / Comment(s): Patient was a smoker for a couple years as a teenager only. He drinks a glass of wine once a month. No illicit drug use. - Past Family History Mother Family Medical History: Cancer Additional Family Medical History / Comment(s): Other at age 80 from acute kidney injury following surgery. Father Family Medical History: Cancer, Pulmonary Embolus Additional Family Medical History / Comment(s): LUNG CANCER. Father in his mid 60s due to blood clots with history of bladder cancer Brother(s) Family Medical History: Cancer, Coronary Artery Disease (CAD) Additional Family Medical History / Comment(s): Patient has one brother with history of non-Hodgkin's lymphoma diagnosed 15 YEARS AGO. She does not have any sisters. He has adult children with no major medical problem. Medications and Allergies Home Medications Medication Instructions Recorded Confirmed Type Aspirin 81 mg PO DAILY@1800 02/23/14 08/09/18 History Simvastatin [Zocor] 20 mg PO HS 02/23/14 08/09/18 History Esomeprazole Magnesium [NexIUM] 20 mg PO DAILY PRN 08/14/17 08/09/18 History Metoprolol Tartrate [Lopressor] 12.5 mg PO BID #60 tab 07/23/18 08/09/18 Rx Clopidogrel [Plavix] 75 mg PO DAILY@1800 08/05/18 08/09/18 History Isosorbide Mononitrate ER [Imdur] 30 mg PO QAM 08/05/18 08/09/18 History Losartan [Cozaar] 50 mg PO DAILY@1800 08/05/18 08/09/18 History Allergies Allergy/AdvReac Type Severity Reaction Status Date / Time Penicillins Allergy Rash/Hives Verified 08/09/18 06:54 prednisone Allergy Rash/Hives Verified 08/09/18 06:54 Surgical - Exam Osteopathic Statement: *. No significant issues noted on an osteopathic structural exam other than those noted in the History and Physical/Consult. Vital Signs Temp Pulse Resp BP Pulse Ox 98.2 F 72 16 153/81 97 08/09/18 03:00 08/09/18 03:00 08/09/18 03:00 08/09/18 03:00 08/09/18 03:00 - General well developed, well nourished, no distress - Eyes PERRL - Respiratory normal expansion, normal respiratory effort - Cardiovascular Rhythm: regular - Abdomen Abdomen: soft, non tender - Neurologic normal coordination, normal sensation - Psychiatric oriented to time, oriented to person, oriented to place Results - Labs 08/10/18 07:52 08/10/18 07:52 Abnormal Lab Results - Last 24 Hours (Table) 08/09/18 08/10/18 08/10/18 Range/Units 23:04 07:52 07:52 RBC 3.77 L 3.99 L (4.30-5.90) m/uL Hgb 11.6 L 12.5 L (13.0-17.5) gm/dL Hct 35.1 L 37.1 L (39.0-53.0) % Chloride 109 H (98-107) mmol/L Creatinine 1.29 H (0.66-1.25) mg/dL Glucose 72 L (74-99) mg/dL Diabetes panel 08/10/18 Range/Units 07:52 Sodium 139 (137-145) mmol/L Potassium 4.5 (3.5-5.1) mmol/L Chloride 109 H (98-107) mmol/L Carbon Dioxide 23 (22-30) mmol/L BUN 19 (9-20) mg/dL Creatinine 1.29 H (0.66-1.25) mg/dL Glucose 72 L (74-99) mg/dL Calcium 8.4 (8.4-10.2) mg/dL Calcium panel 08/10/18 Range/Units 07:52 Calcium 8.4 (8.4-10.2) mg/dL Pituitary panel 08/10/18 Range/Units 07:52 Sodium 139 (137-145) mmol/L Potassium 4.5 (3.5-5.1) mmol/L Chloride 109 H (98-107) mmol/L Carbon Dioxide 23 (22-30) mmol/L BUN 19 (9-20) mg/dL Creatinine 1.29 H (0.66-1.25) mg/dL Glucose 72 L (74-99) mg/dL Calcium 8.4 (8.4-10.2) mg/dL Adrenal panel 08/10/18 Range/Units 07:52 Sodium 139 (137-145) mmol/L Potassium 4.5 (3.5-5.1) mmol/L Chloride 109 H (98-107) mmol/L Carbon Dioxide 23 (22-30) mmol/L BUN 19 (9-20) mg/dL Creatinine 1.29 H (0.66-1.25) mg/dL Glucose 72 L (74-99) mg/dL Calcium 8.4 (8.4-10.2) mg/dL Assessment and Plan Assessment: GI bleed likely upper Plan: Patient does not appear to be actively bleeding at this time. Given his recent cardiac catheterization and stenting could recommend conservative medical management at this time. Continue PPI, also add Carafate 4 times a day. Patient will eventually need EGD as an outpatient when stable from a cardiac standpoint and able to come off the Plavix. If the patient does begin actively bleeding again I would recommend GI evaluation for inpatient EGD and possible intervention. No plans for acute surgical intervention at this time. Patient may have a diet from a surgical standpoint.
[2018-08-10 18:51] LABS: HCT 36.8 % (39.0-53.0); HGB 12.7 gm/dL (13.0-17.5); MCH 32.2 pg (25.0-35.0); MCHC 34.5 g/dL (31.0-37.0); MCV 93.5 fL (80.0-100.0); Mean Platelet Volume 6.6; Platelet Count 213 k/uL (150-450); RBC 3.94 m/uL (4.30-5.90); RDW 13.9 % (11.5-15.5); WBC 8.8 k/uL (3.8-10.6)
[2018-08-11] MEDS: ISOSORBIDE MONONITRATE ER 30 MG TAB.ER.24H PO SCH (08:09)
[2018-08-11] MEDS: METOPROLOL TARTRATE 12.5 MG TAB PO SCH (08:09)
[2018-08-11] MEDS: SUCRALFATE 1 GM TAB PO SCH ×2 (08:09→12:43)
[2018-08-11] MEDS: PANTOPRAZOLE 40 MG/10 ML VIAL IVP SCH (08:09)
--- NOTE | 2018-08-11 08:25 | P.PN ---
Subjective This is a pleasant 83-year-old male past medical history significant for coronary artery disease s/p recent stent placement 07/22 maintained on dual anti-platelet therapy. He also has dyslipidemia, gastroesophageal reflux disease and was recently diagnosed with shingles. He follows with Dr. Benedict in the office. He came to the hospital under June with symptoms of chest discomfort and underwent Lexiscan stress test which showed evidence of reversibility. He underwent cardiac catheterization at that time that revealed his left main artery was normal and patent, LAD with a patent stent in the midportion with mild to moderate in-stent restenosis but did not appear to be critical and 60-70% stenosis proximally, circumflex artery gives rise to 2 OM branches the first OM has about 60-70% stenosis and the second OM has 50-60% stenosis at the ostium, RCA has 80-90% stenosis proximally. He underwent successful stent placement to the RCA at that time. Serial CBC reveals his hemoglobin has remained stable at 12.5 and 12.7. He denies any black or bloody stools since admission. He also denies any symptoms of chest pain, shortness of breath, dizziness or palpitations. Blood pressure 130/74 heart rate 81 afebrile. He has been seen by his surgeon, Dr. Fernandez and conservative management recommended. No plans for scope at this time. He has been started on carafate along with PPI. GENERAL: This is a 83-year-old male in no apparent distress at the time of my examination. HEENT: Head is atraumatic, normocephalic. Pupils are equal, round. Sclerae anicteric. Conjunctivae are clear. Mucous membranes of the mouth are moist. Neck is supple. There is no jugular venous distention. No carotid bruit is heard. LUNGS: Clear to auscultation no wheezes, rales or rhonchi. No chest wall tenderness is noted on palpation or with deep breathing. HEART: Regular rate and rhythm without murmurs, rubs or gallops. S1 and S2 heard. EXTREMITIES: No evidence of peripheral edema and no calf tenderness noted. ASSESSMENT Black stools on dual anti-platelet therapy. Coronary artery disease s/p recent stent placement, maintained on dual anti- platelet therapy Hypertension Dyslipidemia History of abdominal surgery and subsequent obstructions. Follows with Dr. Fernandez PLAN Continue plavix and aspirin. This should not be discontinued due to recent stent placement. Especially with stable hemoglobin. Stable for discharge from a cardiac perspective. Follow up with Dr. Benedict in the office, appointment already made for August 16. Nurse Practitioner note has been reviewed, I agree with a documented findings and plan of care. Patient was seen and examined. Objective - Vital Signs Vital signs: Vital Signs Temp 98.0 F 08/11/18 06:00 Pulse 81 08/11/18 06:00 Resp 16 08/11/18 06:00 BP 130/74 08/11/18 06:00 Pulse Ox 98 08/11/18 06:00 Intake & Output 08/10/18 08/11/18 08/11/18 18:59 06:59 18:59 Intake Total 5625 1340 Output Total 1225 Balance 5625 115 Weight 72.575 kg Intake: Intake, IV Titration 5625 750 Amount Sodium Chloride 0.9% 1, 5625 750 000 ml @ 75 mls/hr IV . [id number] [facility] Rx#:[id number] Oral 590 Output: Urine 1225 Other: Voiding Method Toilet Toilet Urinal Urinal - Labs CBC & Chem 7: 08/10/18 18:42 08/10/18 07:52 Labs: Abnormal Lab Results - Last 24 Hours (Table) 08/10/18 08/10/18 08/10/18 Range/Units 07:52 07:52 18:42 RBC 3.99 L 3.94 L (4.30-5.90) m/uL Hgb 12.5 L 12.7 L (13.0-17.5) gm/dL Hct 37.1 L 36.8 L (39.0-53.0) % Chloride 109 H (98-107) mmol/L Creatinine 1.29 H (0.66-1.25) mg/dL Glucose 72 L (74-99) mg/dL
[2018-08-11 08:54] LABS: HCT 40.9 % (39.0-53.0); HGB 13.5 gm/dL (13.0-17.5); MCV 93.9 fL (80.0-100.0); Mean Platelet Volume 6.7; Platelet Count 215 k/uL (150-450); RBC 4.36 m/uL (4.30-5.90); RDW 13.8 % (11.5-15.5); WBC 7.3 k/uL (3.8-10.6)
--- NOTE | 2018-08-11 10:09 | P.PN ---
Subjective Progress Note Date: 08/10/18 This is an 83-year-old male patient of Dr. Hall and Dr. Benedict with past medical history of bowel obstruction requiring surgery 2 years ago with ongoing and chronic constipation, coronary artery disease status post 2 stents in 1999, heart catheterization and stent of the proximal portion of the RCA done on 07/22/2018, gastroesophageal reflux disease and peptic ulcer with previous GI bleed 40 years ago with a drop of his hemoglobin to to being transferred to [facility] status post transfusion of 15 units of packed RBCs and platelets as well., GI bleed 20 years ago secondary to gastritis from medications, hepatitis C with exposure most likely during blood transfusions for GI bleed successfully treated, gout, osteoarthritis. He has had admissions June 2017 and July 2017 which time he was treated for partial small bowel obstruction with conservative management. Patient was discharged home on July 23 on Plavix and baby aspirin. Patient complains of constipation, abdominal pain nausea without vomiting for about 1 week. Abdominal pain is in the right upper quadrant and left upper quadrant. He states he occasionally takes Aleve for headaches but has not done so for the past 3 weeks. He denies any other nonsteroidal anti-inflammatory intake. He he started having loose stools that were black at 11 PM last night. He has had for liquid bowel movements so far today. He denies any sick contacts. He denies having any chest pain. Patient presented to [facility] emergency center for evaluation. WBC 12.1, hemoglobin 15.4, platelets 254, sodium 136, potassium 4.2, creatinine 1.25, cardiac enzymes negative 1 and positive for stool occult blood. He has been afebrile, blood pressure 153/81, heart rate running at 66 and 70s, pulse ox 97% on room air. Patient received IV morphine, Zofran and Protonix and admitted to the [facility] floor and cardiology consult and GI consult requested. 08/10: Patient has been afebrile, heart rate running in the 60s, blood pressure 157/71, pulse ox 96% on room air. Repeat hemoglobin 12.5, BUN 19 creatinine 1.29. The patient is requesting consult with Dr. Fernandez versus GI as he has a relationship with Dr. Fernandez. This change will be made. Patient will remain nothing by mouth until seen by general surgery. He states he has had a little chest pain on the right side of his chest and also right upper quadrant pain. He states the chest pain is just annoying and is located above the right nipple. He denies having any diarrhea. Stool for C. difficile toxin was not collected and will be canceled. Review of Systems All systems: negative Constitutional: Reports poor appetite, Denies anorexia, Denies chills, Denies fatigue, Denies fever, Denies weakness, Denies weight loss Eyes: denies blurred vision, denies pain Ears, nose, mouth and throat: Denies dental pain, Denies dysphagia, Denies headache, Denies mouth pain, Denies sore throat, Denies vertigo Cardiovascular: Reports chest pain, Denies decreased exercise tolerance, Denies dyspnea on exertion, Denies edema, Denies leg edema, Denies shortness of breath , Denies syncope Respiratory: Denies cough, Denies cough with sputum, Denies dyspnea, Denies excessive sputum, Denies hemoptysis, Denies home oxygen, Denies wheezing Gastrointestinal: Reports abdominal pain, Reports constipation, denies diarrhea , Reports loss of appetite, Reports nausea, Denies vomiting Musculoskeletal: Denies myalgias Integumentary: Denies pruritus, Denies rash, Denies wounds Neurological: Denies aphasia, Denies change in mentation, Denies change in speech, Denies confusion, Denies gait dysfunction, Denies head injury, Denies headaches, Denies numbness, Denies seizures, Denies weakness Psychiatric: Denies anxiety, Denies depression Endocrine: Denies fatigue, Denies weight change Objective - Vital Signs Vital signs: Vital Signs Temp 97.8 F 08/10/18 05:00 Pulse 62 08/10/18 05:00 Resp 16 08/10/18 05:00 BP 157/71 08/10/18 05:00 Pulse Ox 96 08/10/18 05:00 Intake & Output 08/09/18 08/10/18 08/10/18 18:59 06:59 18:59 Intake Total 500 Output Total 300 Balance 200 Weight 72.575 kg Intake: Intake, IV Titration 500 Amount Sodium Chloride 0.9% 1, 500 000 ml @ 75 mls/hr IV . [id number] [facility] Rx#:[id number] Output: Urine 300 Other: Voiding Method Toilet Toilet Urinal Urinal # Voids 2 - Exam Gen: This is an 83-year-old male. Patient is resting comfortably in bed and appears to be in no acute distress. HEENT: Head is atraumatic, normocephalic. Pupils equal, round. Sclerae is anicteric. Conjunctiva pink. Mucous numbers of the mouth are moist. NECK: Supple. No JVD. No lymphadenopathy. No thyromegaly. LUNGS: Clear to auscultation. No wheezes or rhonchi. No intercostal retractions. HEART: Regular rate and rhythm. No murmur. ABDOMEN: Soft. Bowel sounds are present. No masses. Mild right upper quadrant tenderness. EXTREMITIES: No pedal edema. No calf tenderness. Dorsalis pedis +2 bilaterally. NEUROLOGICAL: Patient is awake, alert and oriented x3. Cranial nerves 2 through 12 are grossly intact. - Labs CBC & Chem 7: 08/11/18 08:12 08/10/18 07:52 Labs: Abnormal Lab Results - Last 24 Hours (Table) 08/09/18 08/09/18 08/10/18 Range/Units 14:43 23:04 07:52 RBC 4.15 L 3.77 L 3.99 L (4.30-5.90) m/uL Hgb 12.8 L 11.6 L 12.5 L (13.0-17.5) gm/dL Hct 35.1 L 37.1 L (39.0-53.0) % Chloride (98-107) mmol/L Creatinine (0.66-1.25) mg/dL Glucose (74-99) mg/dL 08/10/18 Range/Units 07:52 RBC (4.30-5.90) m/uL Hgb (13.0-17.5) gm/dL Hct (39.0-53.0) % Chloride 109 H (98-107) mmol/L Creatinine 1.29 H (0.66-1.25) mg/dL Glucose 72 L (74-99) mg/dL Assessment and Plan Plan: 1. Acute GI bleed with rectal bleeding and diarrhea, stable hemoglobin. Serial CBCs. Consult with general surgery, patient is currently nothing by mouth, continue IV fluids at 75 mL per hour, Protonix 40 mg IV twice daily. 2. Coronary artery disease status post stent placement most recently done on July 22. Continue Imdur 30 mg daily, Plavix any 5 mg daily and aspirin 81 mg daily, Lopressor 12.5 mg twice daily. Cardiology consult appreciated. 3. Previous peptic ulcer disease and GI bleed at 20 years ago and 40 years ago. 4. 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 5. Hypertension. Continue losartan 50 mg daily, Lopressor 12.5 mg twice daily. 6. Hyperlipidemia. Patient is normally on atorvastatin which is on hold for now as patient is nothing by mouth. 7. Gastroesophageal reflux disease and peptic ulcer disease. Continue Protonix 40 mg IV twice daily. 8. DVT prophylaxis. SCDs and KERA hose Discharge plan: most likely return home tomorrow Impression and plan of care have been directed as dictated by the signing physician. Susi Cardona nurse practitioner acting as scribe for signing physician.
--- NOTE | 2018-08-11 11:45 | P.PN ---
Subjective Progress Note Date: 08/11/18 Patient doing well, BM x2 overnight and this AM. First has small amount of melena, second had no melena per patient. HGB stable. No NV, tolerating diet Objective - Vital Signs Vital signs: Vital Signs Temp 98.0 F 08/11/18 06:00 Pulse 81 08/11/18 06:00 Resp 16 08/11/18 06:00 BP 130/74 08/11/18 06:00 Pulse Ox 98 08/11/18 06:00 Intake & Output 08/10/18 08/11/18 08/11/18 18:59 06:59 18:59 Intake Total 5625 1340 Output Total 1225 Balance 5625 115 Weight 72.575 kg Intake: Intake, IV Titration 5625 750 Amount Sodium Chloride 0.9% 1, 5625 750 000 ml @ 75 mls/hr IV . [id number] [facility] Rx#:[id number] Oral 590 Output: Urine 1225 Other: Voiding Method Toilet Toilet Urinal Urinal - Constitutional General appearance: Present: cooperative - Respiratory Details: nonlabored - Cardiovascular Rhythm: regular - Gastrointestinal Gastrointestinal Comment(s): S/NT/ND - Psychiatric Psychiatric: Present: A&O x's 3 - Labs CBC & Chem 7: 08/11/18 08:12 08/10/18 07:52 Labs: Abnormal Lab Results - Last 24 Hours (Table) 08/10/18 Range/Units 18:42 RBC 3.94 L (4.30-5.90) m/uL Hgb 12.7 L (13.0-17.5) gm/dL Hct 36.8 L (39.0-53.0) % Assessment and Plan Assessment: GI bleed likely upper Plan: Patient is stable from a surgical standpoint for discharge home on 40mg omeprazole QDAY for 3 months and 1gram carafate dissolved in 10oz water QID for 10 days. He was instructed to follow up as outpatient in 1 to 2 weeks. Will likely plan for EGD as outpatient once cleared from cardiology and able to come off plavix/aspirin.
--- NOTE | 2018-08-11 12:00 | P.DS ---
Providers Date of admission: 08/09/18 04:39 Expected date of discharge: 08/11/18 Attending physician: Destiny Orlando Consults: 08/09/18 04:34 Consult Physician Stat Consulting Provider: [facility] Consult Reason/Comments: established patient, GIB on plavix Do you want consulting provider notified?: Yes, Notify in am 08/10/18 10:04 Consult Physician Routine Consulting Provider: Estiven Fernandez Consult Reason/Comments: GIB, patient of record Do you want consulting provider notified?: Yes Primary care physician: [facility] Course: This is an 83-year-old male patient of Dr. Hall and Dr. Benedict with past medical history of bowel obstruction requiring surgery 2 years ago with ongoing and chronic constipation, coronary artery disease status post 2 stents in 1999, heart catheterization and stent of the proximal portion of the RCA done on 07/22/2018, gastroesophageal reflux disease and peptic ulcer with previous GI bleed 40 years ago with a drop of his hemoglobin to to being transferred to [facility] status post transfusion of 15 units of packed RBCs and platelets as well., GI bleed 20 years ago secondary to gastritis from medications, hepatitis C with exposure most likely during blood transfusions for GI bleed successfully treated, gout, osteoarthritis. He has had admissions June 2017 and July 2017 which time he was treated for partial small bowel obstruction with conservative management. Patient was discharged home on July 23 on Plavix and baby aspirin. Patient complains of constipation, abdominal pain nausea without vomiting for about 1 week. Abdominal pain is in the right upper quadrant and left upper quadrant. He states he occasionally takes Aleve for headaches but has not done so for the past 3 weeks. He denies any other nonsteroidal anti-inflammatory intake. He he started having loose stools that were black at 11 PM last night. He has had for liquid bowel movements so far today. He denies any sick contacts. He denies having any chest pain. Patient presented to [facility] emergency center for evaluation. WBC 12.1, hemoglobin 15.4, platelets 254, sodium 136, potassium 4.2, creatinine 1.25, cardiac enzymes negative 1 and positive for stool occult blood. He has been afebrile, blood pressure 153/81, heart rate running at 66 and 70s, pulse ox 97% on room air. Patient received IV morphine, Zofran and Protonix and admitted to the [facility] floor and cardiology consult and GI consult requested. 08/10: Patient has been afebrile, heart rate running in the 60s, blood pressure 157/71, pulse ox 96% on room air. Repeat hemoglobin 12.5, BUN 19 creatinine 1.29. The patient is requesting consult with Dr. Fernandez versus GI as he has a relationship with Dr. Fernandez. This change will be made. Patient will remain nothing by mouth until seen by general surgery. He states he has had a little chest pain on the right side of his chest and also right upper quadrant pain. He states the chest pain is just annoying and is located above the right nipple. He denies having any diarrhea. Stool for C. difficile toxin was not collected and will be canceled. 08/11: Repeat hemoglobin is 13.5. Heart rate running in the 50s and 60s. Patient has been afebrile, blood pressure 130/74. Patient has been seen by Dr. fernandez and he does not appear to be bleeding at this time. Diet was started. He recommends EGD as an outpatient once stable from cardiac standpoint and can be off Plavix. Patient has been cleared by cardiology and general surgery. Patient will be discharged home today in stable condition. Discharge diagnoses: 1. Acute GI bleed with rectal bleeding and diarrhea, stable hemoglobin. 2. Coronary artery disease status post stent placement most recently done on July 22. 3. Previous peptic ulcer disease and GI bleed at 20 years ago and 40 years ago. 4. 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 5. Hypertension. 6. Hyperlipidemia. 7. Gastroesophageal reflux disease and peptic ulcer disease. 8. Right-sided chest pain, musculoskeletal. Discharge plan: home Impression and plan of care have been directed as dictated by the signing physician. Susi Cardona nurse practitioner acting as scribe for signing physician. Patient Condition at Discharge: Good Plan - Discharge Summary Discharge Rx Participant: No New Discharge Prescriptions: New Sucralfate [Carafate] 1 gm PO QID 10 Days #40 tablet RX: Omeprazole 40 mg PO DAILY #30 No Action RX: Simvastatin [Zocor] 20 mg PO HS RX: Aspirin 81 mg PO DAILY@1800 RX: Esomeprazole Magnesium [NexIUM] 20 mg PO DAILY PRN PRN Reason: Heartburn RX: Metoprolol Tartrate [Lopressor] 12.5 mg PO BID #60 tab RX: Losartan [Cozaar] 50 mg PO DAILY@1800 Isosorbide Mononitrate ER [Imdur] 30 mg PO QAM RX: Clopidogrel [Plavix] 75 mg PO DAILY@1800 Discharge Medication List RX: Aspirin 81 mg PO DAILY@1800 02/23/14 [History] RX: Simvastatin [Zocor] 20 mg PO HS 02/23/14 [History] RX: Esomeprazole Magnesium [NexIUM] 20 mg PO DAILY PRN 08/14/17 [History] RX: Metoprolol Tartrate [Lopressor] 12.5 mg PO BID #60 tab 07/23/18 [Rx] Isosorbide Mononitrate ER [Imdur] 30 mg PO QAM 08/05/18 [History] RX: Clopidogrel [Plavix] 75 mg PO DAILY@1800 08/05/18 [History] RX: Losartan [Cozaar] 50 mg PO DAILY@1800 08/05/18 [History] RX: Omeprazole 40 mg PO DAILY #30 08/11/18 [Rx] Sucralfate [Carafate] 1 gm PO QID 10 Days #40 tablet 08/11/18 [Rx] Follow up Appointment(s)/Referral(s): Estiven Fernandez DO [Doctor of Osteopathic Medicine] - 2 Weeks Jamel Benedict MD [STAFF PHYSICIAN] - 08/16/18 2:45 pm Emanuel Tapia MD [Primary Care Provider] - 1 Week Patient Instructions/Handouts: Sucralfate (By mouth), Omeprazole (By mouth), Gastrointestinal Bleeding (DC) Activity/Diet/Wound Care/Special Instructions: No Aleve, NSAID Discharge Disposition: HOME SELF-CARE
[2018-08-11 12:03] VITALS: BP 125/69; PULSE 54; RESP 18; TEMP 97.8
== END 2018-08-11 13:00 | disposition home or self-care (01) ==
LOC: EC 02:59 → 3NMEDONC 04:39
PROVIDERS: ADMIT Family Medicine; ATTEND Family Medicine
DX: K92.1 Melena (principal); K21.9 Gastro-esophageal reflux disease without esophagitis; K27.9 Peptic ulcer, site unspecified, unspecified as acute or chronic, without hemorrhage or perforation; K59.09 Other constipation; R07.89 Other chest pain; D64.9 Anemia, unspecified; K57.90 Diverticulosis of intestine, part unspecified, without perforation or abscess without bleeding; J45.909 Unspecified asthma, uncomplicated; H91.90 Unspecified hearing loss, unspecified ear; K44.9 Diaphragmatic hernia without obstruction or gangrene; M54.5 Low back pain; I25.10 Atherosclerotic heart disease of native coronary artery without angina pectoris; M19.90 Unspecified osteoarthritis, unspecified site; M10.9 Gout, unspecified; B19.20 Unspecified viral hepatitis C without hepatic coma; R19.7 Diarrhea, unspecified; K64.4 Residual hemorrhoidal skin tags; E66.9 Obesity, unspecified; Z68.26 Body mass index [BMI] 26.0-26.9, adult; I10 Essential (primary) hypertension; E78.5 Hyperlipidemia, unspecified; B02.9 Zoster without complications; T82.855A Stenosis of coronary artery stent, initial encounter; Z79.02 Long term (current) use of antithrombotics/antiplatelets; Z79.82 Long term (current) use of aspirin; Z79.899 Other long term (current) drug therapy; Z88.0 Allergy status to penicillin; Z88.8 Allergy status to other drugs, medicaments and biological substances; Z90.49 Acquired absence of other specified parts of digestive tract; Z96.1 Presence of intraocular lens; Z98.42 Cataract extraction status, left eye; Z98.41 Cataract extraction status, right eye; Z95.5 Presence of coronary angioplasty implant and graft; Z87.11 Personal history of peptic ulcer disease; Z86.010 Personal history of colon polyps; Z87.891 Personal history of nicotine dependence; Z82.49 Family history of ischemic heart disease and other diseases of the circulatory system; Z80.1 Family history of malignant neoplasm of trachea, bronchus and lung; Z80.7 Family history of other malignant neoplasms of lymphoid, hematopoietic and related tissues; Z84.1 Family history of disorders of kidney and ureter; Z80.52 Family history of malignant neoplasm of bladder
CPT/HCPCS: 96376 ×3; 96361 ×4; 96374; 96375; 99285; 36415; 93005; 80053; 80048; 82550; 82553; 83690; 84484; 85025; 85027 ×3; 85730; 82272; G0378 ×3; J2405; J2270; C9113 ×3

== ENCOUNTER → 2018-11-08 | Outpatient (CLI) | payer MEDICARE ==
--- NOTE | 2018-11-09 07:08 | CT ---
EXAMINATION TYPE: CT abdomen pelvis wo/w con DATE OF EXAM: 11/08/2018 COMPARISON: 08/14/2017 HISTORY: Abdominal pain, s/p hepatitis C CT DLP: 1119.1 mGycm Automated exposure control for dose reduction was used. TECHNIQUE: Helical acquisition of images was performed from the lung bases through the pelvis. CONTRAST: Performed with Oral Contrast and without and with IV Contrast, patient injected with 80 mL of Isovue 300. FINDINGS: LUNG BASES: No significant abnormality is appreciated. LIVER/GB: Unenhanced images demonstrate no evidence of hepatic steatosis. Gallbladder surgically abse nt. No intrahepatic biliary ductal dilatation. Portal vein is grossly patent and nondilated. The cont our the liver remains smooth. PANCREAS: No significant abnormality is seen. SPLEEN: No significant abnormality is seen. ADRENALS: No significant abnormality is seen. KIDNEYS: Unenhanced images demonstrate no evidence of nephrolithiasis. There is a 1.5 cm left renal c yst at the mid pole. FREE AIR: No free air is visualized. ADENOPATHY: No greater than 1 cm short axis lymph node is seen in the abdomen or pelvis. REPRODUCTIVE ORGANS: Heterogenous although not discretely enlarged on CT. URINARY BLADDER: Incompletely distended. No appreciable wall thickening. OSSEOUS STRUCTURES: Mild multilevel degenerative change of the spine. BOWEL: There is an incidentally noted duodenal diverticulum. Very small hiatal hernia is seen. There are numerous sigmoid diverticula and some thickening of the sigmoid colon diffusely that may be on t he basis of chronic diverticulitis. Numerous pancolonic diverticula are also seen. There is a very zarate btle fat stranding of the descending colon such as on series 6 image 40 and a cued mild uncomplicated diverticulitis is possible or resolving diverticulitis. There is a ventral supraumbilical hernia see n just above the umbilicus containing loops of small bowel. This is wide necked with no CT evidence o f obstruction at this time. Overall no dilated large or small bowel. IMPRESSION: 1. MINIMAL FAT STRANDING SURROUNDING DESCENDING COLON DIVERTICULI MAY RELATE TO MILD ACUTE UNCOMPLICA KERA DIVERTICULITIS OR RESOLVING DIVERTICULITIS. PANCOLONIC DIVERTICULA ARE SEEN WITH LONG SEGMENT WAL L THICKENING OF THE SIGMOID COLON THAT MAY BE ON THE BASIS OF CHRONIC DIVERTICULITIS. NO FISTULA OR P ERICOLIC ABSCESS IS SEEN. 2. DESPITE THIS PATIENT'S KNOWN HEPATOCELLULAR DISEASE NO SUSPICIOUS MASS, CT EVIDENCE OF CIRRHOSIS, OR CT EVIDENCE OF PORTAL VENOUS HYPERTENSION ARE YET SEEN. 3. PERIUMBILICAL WIDE NECK VENTRAL ABDOMINAL HERNIA CONTAINING LOOPS OF SMALL BOWEL.
== END ==
LOC: RADCTMAIN 12:28
PROVIDERS: ATTEND Student in an Organized Health Care Education/Training Program
DX: K57.30 Diverticulosis of large intestine without perforation or abscess without bleeding (principal); K76.9 Liver disease, unspecified; K43.9 Ventral hernia without obstruction or gangrene
CPT/HCPCS: 82565; 84520; 74178; 36415; Q9967

== ENCOUNTER 2018-11-23 13:22 | Observation (INO) | payer MEDICARE ==
[2018-11-23] MEDS ORDERED: SODIUM CHLORIDE 0.9% 1,000 ML IV STA (14:12)
[2018-11-23] MEDS ORDERED: PANTOPRAZOLE 40 MG/10 ML VIAL IVP STA (14:12)
--- NOTE | 2018-11-23 14:16 | ED ---
General Adult HPI - General Chief complaint: GI Bleed Stated complaint: Dark Stool Time Seen by Provider: 11/23/18 13:32 Source: patient, family, RN notes reviewed Mode of arrival: ambulatory Limitations: no limitations - History of Present Illness Initial comments: Patient is a pleasant 83-year-old male presenting to the emergency department with complaints of dark stool. Patient was started on antibiotics for diverticulitis 5 days ago. Patient did have a computed tomography scan done a couple of weeks ago that was reviewed by Dr. berkowitz who had concern for mild diverticulitis. Patient has had discomfort of his lower abdomen for several months now that has been unchanged. Patient states he also has a history of previous gastric ulcer. No recent change in pain. No fevers. No nausea vomiting. - Related Data Home Medications Medication Instructions Recorded Confirmed Aspirin 81 mg PO DAILY 02/23/14 11/23/18 Simvastatin [Zocor] 20 mg PO HS 02/23/14 11/23/18 Clopidogrel [Plavix] 75 mg PO DAILY 08/05/18 11/23/18 Losartan [Cozaar] 50 mg PO DAILY 08/05/18 11/23/18 Ciprofloxacin HCl [Cipro] 500 mg PO Q12HR 11/23/18 11/23/18 Metoprolol Tartrate [Lopressor] 12.5 mg PO DAILY 11/23/18 11/23/18 metroNIDAZOLE [Flagyl] 500 mg PO TID 11/23/18 11/23/18 Previous Rx's Medication Instructions Recorded Omeprazole 40 mg PO DAILY #30 08/11/18 Allergies Allergy/AdvReac Type Severity Reaction Status Date / Time Penicillins Allergy Rash/Hives Verified 11/23/18 13:56 prednisone Allergy Rash/Hives Verified 11/23/18 13:56 Review of Systems ROS Statement: Those systems with pertinent positive or pertinent negative responses have been documented in the HPI. ROS Other: All systems not noted in ROS Statement are negative. Constitutional: Denies: fever Eyes: Denies: eye pain ENT: Denies: ear pain Respiratory: Denies: cough Cardiovascular: Denies: chest pain Endocrine: Denies: fatigue Gastrointestinal: Reports: as per HPI, abdominal pain, melena Genitourinary: Denies: dysuria Musculoskeletal: Denies: back pain Skin: Denies: rash Neurological: Denies: weakness Past Medical History Past Medical History: Asthma, Coronary Artery Disease (CAD), GERD/Reflux, GI Bleed, Hearing Disorder / Deafness, Hyperlipidemia, Liver Disease, Osteoarthritis (OA) Additional Past Medical History / Comment(s): Recurrent SBO d/t adhesions with conservative treatment and surgical treatment, recent chest pain with PCI and stent-pt states he was to have another cardiac cath today/? 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 Divirticulitis History of Any Multi-Drug Resistant Organisms: None Reported Past Surgical History: Bowel Resection, Cholecystectomy, Heart Catheterization With Stent, Orthopedic Surgery Additional Past Surgical History / Comment(s): 06/2018 PCI with stent, 1999 PCI with 2 stents, laparotomy with lysis of adhesions, R rotator cuff repair, R knee arthroscopy, R upper chest lipoma removed, bilateral cataract removals/lens implants, EGD and colonoscopies with pre cancerous polypectomies-last colonoscopy in 2018 was normal per pt. Past Anesthesia/Blood Transfusion Reactions: Blood Transfusion Reaction Additional Past Anesthesia/Blood Transfusion Reaction / Comment(s): CONTRACTED HEP C FROM A BLOOD TRANSFUSION 35-40 YEARS AGO. Date of Last Stent Placement:: JUN 2018 Past Psychological History: No Psychological Hx Reported Smoking Status: Former smoker Past Alcohol Use History: None Reported Past Drug Use History: None Reported - Past Family History Mother Family Medical History: Cancer Additional Family Medical History / Comment(s): Other at age 80 from acute kidney injury following surgery. Father Family Medical History: Cancer, Pulmonary Embolus Additional Family Medical History / Comment(s): LUNG CANCER. Father in his mid 60s due to blood clots with history of bladder cancer Brother(s) Family Medical History: Cancer, Coronary Artery Disease (CAD) Additional Family Medical History / Comment(s): Patient has one brother with history of non-Hodgkin's lymphoma diagnosed 15 YEARS AGO. She does not have any sisters. He has adult children with no major medical problem. General Exam Limitations: no limitations General appearance: alert, in no apparent distress Head exam: Present: normocephalic Eye exam: Present: normal appearance, PERRL ENT exam: Present: normal oropharynx Neck exam: Present: normal inspection Respiratory exam: Present: normal lung sounds bilaterally Cardiovascular Exam: Present: regular rate, normal rhythm GI/Abdominal exam: Present: soft, tenderness (Mild tenderness left lower abdomen), normal bowel sounds. Absent: distended, guarding, rebound, rigid Rectal exam: Present: normal inspection, normal rectal tone. Absent: black stool Extremities exam: Present: normal inspection Neurological exam: Present: alert Psychiatric exam: Present: normal affect, normal mood Skin exam: Present: normal color Course Vital Signs 11/23/18 11/23/18 13:25 14:00 Temperature 97.8 F Pulse Rate 63 63 Respiratory 18 18 Rate Blood Pressure 147/75 144/82 O2 Sat by Pulse 98 98 Oximetry EKG Findings - EKG Comments: EKG Findings:: Sinus rhythm at 61. First-degree AV block IL of 220. QRS 74. QT 416. QTc 418. Left axis. Normal QRS. No acute ST change. Medical Decision Making - Medical Decision Making Patient reevaluated and resting comfortably in bed. Patient updated on results and plan. Case was discussed in detail with Dr. Gibbs, covering for Dr. berkowitz who does recommend medical admission and changing antibiotics to IV. Case was also discussed with Dr. Frankie ramires, covering for Dr. Diaz, who will admit. Case was then also discussed with Dr. berkowitz who will consult. He does also request cardiology consult regarding continuation of Plavix. Patient states he did recently switch his primary care physician. Dr. Diaz who works with Dr. Hall. - Lab Data Result diagrams: 11/23/18 14:15 11/23/18 14:15 Lab Results 11/23/18 11/23/18 11/23/18 Range/Units 14:15 14:15 14:15 WBC 8.0 (3.8-10.6) k/uL RBC 4.66 (4.30-5.90) m/uL Hgb 14.5 (13.0-17.5) gm/dL Hct 42.5 (39.0-53.0) % MCV 91.1 (80.0-100.0) fL MCH 31.2 (25.0-35.0) pg MCHC 34.2 (31.0-37.0) g/dL RDW 13.3 (11.5-15.5) % Plt Count 227 (150-450) k/uL Neutrophils % (Manual) 68 % Lymphocytes % (Manual) 22 % Monocytes % (Manual) 6 % Eosinophils % (Manual) 4 % Neutrophils # (Manual) 5.44 (1.3-7.7) k/uL Lymphocytes # (Manual) 1.76 (1.0-4.8) k/uL Monocytes # (Manual) 0.48 (0-1.0) k/uL Eosinophils # (Manual) 0.32 (0-0.7) k/uL Nucleated RBCs 0 (0-0) /100 WBC Manual Slide Review Performed RBC Morphology Normal PT 10.5 (9.0-12.0) sec INR 1.0 (<1.2) APTT 24.2 (22.0-30.0) sec Sodium 137 (137-145) mmol/L Potassium 4.3 (3.5-5.1) mmol/L Chloride 107 (98-107) mmol/L Carbon Dioxide 21 L (22-30) mmol/L Anion Gap 9 mmol/L BUN 16 (9-20) mg/dL Creatinine 1.41 H (0.66-1.25) mg/dL Est GFR (CKD-EPI)AfAm 54 (>60 ml/min/1.73 sqM) Est GFR (CKD-EPI)NonAf 47 (>60 ml/min/1.73 sqM) Glucose 96 (74-99) mg/dL Calcium 9.0 (8.4-10.2) mg/dL Total Bilirubin 0.4 (0.2-1.3) mg/dL AST 37 (17-59) U/L ALT 37 (21-72) U/L Alkaline Phosphatase 62 (38-126) U/L Total Protein 6.5 (6.3-8.2) g/dL Albumin 4.0 (3.5-5.0) g/dL Stool Occult Blood (Negative) 11/23/18 Range/Units 14:15 WBC (3.8-10.6) k/uL RBC (4.30-5.90) m/uL Hgb (13.0-17.5) gm/dL Hct (39.0-53.0) % MCV (80.0-100.0) fL MCH (25.0-35.0) pg MCHC (31.0-37.0) g/dL RDW (11.5-15.5) % Plt Count (150-450) k/uL Neutrophils % (Manual) % Lymphocytes % (Manual) % Monocytes % (Manual) % Eosinophils % (Manual) % Neutrophils # (Manual) (1.3-7.7) k/uL Lymphocytes # (Manual) (1.0-4.8) k/uL Monocytes # (Manual) (0-1.0) k/uL Eosinophils # (Manual) (0-0.7) k/uL Nucleated RBCs (0-0) /100 WBC Manual Slide Review RBC Morphology PT (9.0-12.0) sec INR (<1.2) APTT (22.0-30.0) sec Sodium (137-145) mmol/L Potassium (3.5-5.1) mmol/L Chloride (98-107) mmol/L Carbon Dioxide (22-30) mmol/L Anion Gap mmol/L BUN (9-20) mg/dL Creatinine (0.66-1.25) mg/dL Est GFR (CKD-EPI)AfAm (>60 ml/min/1.73 sqM) Est GFR (CKD-EPI)NonAf (>60 ml/min/1.73 sqM) Glucose (74-99) mg/dL Calcium (8.4-10.2) mg/dL Total Bilirubin (0.2-1.3) mg/dL AST (17-59) U/L ALT (21-72) U/L Alkaline Phosphatase (38-126) U/L Total Protein (6.3-8.2) g/dL Albumin (3.5-5.0) g/dL Stool Occult Blood Positive (Negative) Disposition Clinical Impression: GI hemorrhage Disposition: ADMITTED IP TO THIS [facility] Is patient prescribed a controlled substance at d/c from ED?: No Referrals: Coy Arce MD [REFERRING] - 1-2 days Decision Time: 15:43
[2018-11-23 14:39] LABS: HCT 42.5 % (39.0-53.0); HGB 14.5 gm/dL (13.0-17.5); MCH 31.2 pg (25.0-35.0); MCHC 34.2 g/dL (31.0-37.0); MCV 91.1 fL (80.0-100.0); Mean Platelet Volume 6.5; Platelet Count 227 k/uL (150-450); RBC 4.66 m/uL (4.30-5.90); RDW 13.3 % (11.5-15.5)
[2018-11-23 14:48] LABS: Potassium 4.3 mmol/L (3.5-5.1); Total Bilirubin 0.4 mg/dL (0.2-1.3); Total Protein 6.5 g/dL (6.3-8.2)
[2018-11-23 14:49] LABS: Prothrombin Time 10.5 sec (9.0-12.0)
[2018-11-23 14:50] LABS: Partial Thromboplastin Time 24.2 sec (22.0-30.0)
[2018-11-23 14:52] LABS: Eosinophils # (M) 0.32 k/uL (0-0.7); Lymphocytes # (M) 1.76 k/uL (1.0-4.8); Monocytes # (M) 0.48 k/uL (0-1.0); Neutrophils # (M) 5.44 k/uL (1.3-7.7); Neutrophils % (M) 68 %; Nucleated Red Blood Cells 0 /100 WBC (0-0); Total Cells Counted 100
[2018-11-23] MEDS ORDERED: NALOXONE 0.4 MG/ML 1 ML VIAL IV PRN (15:43)
--- NOTE | 2018-11-23 16:01 | XR ---
EXAMINATION TYPE: XR abdomen 1V DATE OF EXAM: 11/23/2018 COMPARISON: 08/15/2017 HISTORY: Pain TECHNIQUE: One view abdominal series FINDINGS: Surgical clips in the right upper quadrant. Bowel gas pattern nonspecific. Arthropathy of the hips. L kassie bases demonstrate no definite consolidation. Minimal blunting of the costophrenic angle bilateral ly suspected which may represent a tiny amount of fluid or thickening. Hypertrophic change of the deonte tebral column. Arthropathy of the hips. IMPRESSION: 1. Nonspecific abdomen.
--- NOTE | 2018-11-23 16:46 | P.GSCN ---
History of Present Illness Consult date: 11/23/18 History of present illness: This is a 83-year-old male well known to my service. He has a history of bleeding duodenal ulcer, he also is on Plavix, he has been treated as an outpatient for the last week with oral antibiotics for diverticulitis. He is also having pain related to a shingles outbreak that he recently had. He started noticing over the last several days dark tarry bowel movements. He denies bright red blood. He denies any abdominal pain other than the shingles and left lower quadrant pain. No other complaints at this time Past Medical History Past Medical History: Asthma, Coronary Artery Disease (CAD), GERD/Reflux, GI Bleed, Hearing Disorder / Deafness, Hyperlipidemia, Liver Disease, Osteoarthritis (OA) Additional Past Medical History / Comment(s): Recurrent SBO d/t adhesions with conservative treatment and surgical treatment, recent chest pain with PCI and stent-pt states he was to have another cardiac cath today/? 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 Divirticulitis History of Any Multi-Drug Resistant Organisms: None Reported Past Surgical History: Bowel Resection, Cholecystectomy, Heart Catheterization With Stent, Orthopedic Surgery Additional Past Surgical History / Comment(s): 06/2018 PCI with stent, 1999 PCI with 2 stents, laparotomy with lysis of adhesions, R rotator cuff repair, R knee arthroscopy, R upper chest lipoma removed, bilateral cataract removals/lens implants, EGD and colonoscopies with pre cancerous polypectomies-last colonoscopy in 2018 was normal per pt. Past Anesthesia/Blood Transfusion Reactions: Blood Transfusion Reaction Additional Past Anesthesia/Blood Transfusion Reaction / Comm: CONTRACTED HEP C FROM A BLOOD TRANSFUSION 35-40 YEARS AGO. Date of Last Stent Placement:: JUN 2018 Past Psychological History: No Psychological Hx Reported Smoking Status: Former smoker Past Alcohol Use History: None Reported Past Drug Use History: None Reported - Past Family History Mother Family Medical History: Cancer Additional Family Medical History / Comment(s): Other at age 80 from acute kidney injury following surgery. Father Family Medical History: Cancer, Pulmonary Embolus Additional Family Medical History / Comment(s): LUNG CANCER. Father in his mid 60s due to blood clots with history of bladder cancer Brother(s) Family Medical History: Cancer, Coronary Artery Disease (CAD) Additional Family Medical History / Comment(s): Patient has one brother with history of non-Hodgkin's lymphoma diagnosed 15 YEARS AGO. She does not have any sisters. He has adult children with no major medical problem. Medications and Allergies Home Medications Medication Instructions Recorded Confirmed Type Aspirin 81 mg PO DAILY 02/23/14 11/23/18 History Simvastatin [Zocor] 20 mg PO HS 02/23/14 11/23/18 History Clopidogrel [Plavix] 75 mg PO DAILY 08/05/18 11/23/18 History Losartan [Cozaar] 50 mg PO DAILY 08/05/18 11/23/18 History Omeprazole 40 mg PO DAILY #30 08/11/18 11/23/18 Rx Ciprofloxacin HCl [Cipro] 500 mg PO Q12HR 11/23/18 11/23/18 History Metoprolol Tartrate [Lopressor] 12.5 mg PO DAILY 11/23/18 11/23/18 History metroNIDAZOLE [Flagyl] 500 mg PO TID 11/23/18 11/23/18 History Allergies Allergy/AdvReac Type Severity Reaction Status Date / Time Penicillins Allergy Rash/Hives Verified 11/23/18 13:56 prednisone Allergy Rash/Hives Verified 11/23/18 13:56 Surgical - Exam Osteopathic Statement: *. No significant issues noted on an osteopathic structural exam other than those noted in the History and Physical/Consult. Vital Signs Temp Pulse Resp BP Pulse Ox 97.8 F 63 18 147/75 98 11/23/18 13:25 11/23/18 13:25 11/23/18 13:25 11/23/18 13:25 11/23/18 13:25 - General well developed, well nourished, no distress - Eyes PERRL - Neck no masses, trachea midline - Respiratory normal expansion, normal respiratory effort - Cardiovascular Rhythm: regular - Abdomen Abdomen: soft, non tender - Neurologic normal coordination, normal sensation - Psychiatric oriented to time, oriented to person, oriented to place Results - Labs 11/23/18 14:15 11/23/18 14:15 Abnormal Lab Results - Last 24 Hours (Table) 11/23/18 Range/Units 14:15 Carbon Dioxide 21 L (22-30) mmol/L Creatinine 1.41 H (0.66-1.25) mg/dL Diabetes panel 11/23/18 Range/Units 14:15 Sodium 137 (137-145) mmol/L Potassium 4.3 (3.5-5.1) mmol/L Chloride 107 (98-107) mmol/L Carbon Dioxide 21 L (22-30) mmol/L BUN 16 (9-20) mg/dL Creatinine 1.41 H (0.66-1.25) mg/dL Glucose 96 (74-99) mg/dL Calcium 9.0 (8.4-10.2) mg/dL AST 37 (17-59) U/L ALT 37 (21-72) U/L Alkaline Phosphatase 62 (38-126) U/L Total Protein 6.5 (6.3-8.2) g/dL Albumin 4.0 (3.5-5.0) g/dL Calcium panel 11/23/18 Range/Units 14:15 Calcium 9.0 (8.4-10.2) mg/dL Albumin 4.0 (3.5-5.0) g/dL Pituitary panel 11/23/18 Range/Units 14:15 Sodium 137 (137-145) mmol/L Potassium 4.3 (3.5-5.1) mmol/L Chloride 107 (98-107) mmol/L Carbon Dioxide 21 L (22-30) mmol/L BUN 16 (9-20) mg/dL Creatinine 1.41 H (0.66-1.25) mg/dL Glucose 96 (74-99) mg/dL Calcium 9.0 (8.4-10.2) mg/dL Adrenal panel 11/23/18 Range/Units 14:15 Sodium 137 (137-145) mmol/L Potassium 4.3 (3.5-5.1) mmol/L Chloride 107 (98-107) mmol/L Carbon Dioxide 21 L (22-30) mmol/L BUN 16 (9-20) mg/dL Creatinine 1.41 H (0.66-1.25) mg/dL Glucose 96 (74-99) mg/dL Calcium 9.0 (8.4-10.2) mg/dL Total Bilirubin 0.4 (0.2-1.3) mg/dL AST 37 (17-59) U/L ALT 37 (21-72) U/L Alkaline Phosphatase 62 (38-126) U/L Total Protein 6.5 (6.3-8.2) g/dL Albumin 4.0 (3.5-5.0) g/dL Assessment and Plan Assessment: GI bleed likely upper secondary to history of duodenal and peptic ulcer disease Plan: patient's hemoglobin is stable at this time and 14. I recommend continuing antibiotics for diverticulitis continuing PPI secondary to known gastric and duodenal ulcer. He has not been scoped recently secondary to being on Plavix from recent stenting. Appreciate cardiology recommendations regarding how long the patient needs to be on Plavix and if he can come off it. No plans for acute surgical intervention at this time we'll continue to monitor hemoglobin.
[2018-11-23] MEDS ORDERED: LEVOFLOXACIN 500MG-D5W PMX 500 MG in DEXTROSE/WATER 1 100ML.BAG IVPB SCH (17:00)
[2018-11-23 17:15] VITALS: BMI 26.5
[2018-11-23] MEDS: SODIUM CHLORIDE 0.9% 1,000 ML IV SCH (18:02)
[2018-11-23] MEDS: ATORVASTATIN 10 MG TAB PO SCH (20:08)
[2018-11-23] MEDS: LOSARTAN 50 MG TAB PO SCH (20:41)
[2018-11-23] MEDS: metroNIDAZOLE-NS PMX 500 MG in SALINE 1 100ML.BAG IVPB SCH (23:09)
[2018-11-24] MEDS: SODIUM CHLORIDE 0.9% 1,000 ML IV SCH ×2 (05:41→23:21)
[2018-11-24] MEDS ORDERED: PANTOPRAZOLE 40 MG/10 ML VIAL IV SCH (09:00)
[2018-11-24] MEDS: metroNIDAZOLE-NS PMX 500 MG in SALINE 1 100ML.BAG IVPB SCH ×3 (09:07→23:22)
[2018-11-24] MEDS: METOPROLOL TARTRATE 12.5 MG TAB PO SCH (09:11)
[2018-11-24 09:42] LABS: HCT 41.9 % (39.0-53.0); MCH 30.8 pg (25.0-35.0); MCHC 33.4 g/dL (31.0-37.0); MCV 92.2 fL (80.0-100.0); Mean Platelet Volume 6.6; Platelet Count 219 k/uL (150-450); RBC 4.54 m/uL (4.30-5.90); RDW 13.4 % (11.5-15.5); WBC 7.3 k/uL (3.8-10.6)
[2018-11-24 10:57] LABS: Eosinophils # (M) 0.51 k/uL (0-0.7); Lymphocytes # (M) 2.19 k/uL (1.0-4.8); Monocytes # (M) 0.51 k/uL (0-1.0); Neutrophils # (M) 4.09 k/uL (1.3-7.7); Neutrophils % (M) 56 %; Nucleated Red Blood Cells 0 /100 WBC (0-0); Total Cells Counted 100
--- NOTE | 2018-11-24 11:48 | P.HPIM ---
History of Present Illness H&P Date: 11/24/18 Chief Complaint: Upper GI bleed. This is an 83-year-old male one of Dr. monzon with a previous medical history significant for CAD post-PCI and stent placement last one was in June 2018, and 2 other one is back in 1999, peptic ulcer disease with duodenal ulcer, GERD, hypertension and hypertensive cardiovascular disease, hyperlipidemia, osteoarthritis, patient was diagnosed with the acute diverticulitis based on the computed tomography scan that was done about a month ago and he was seen by Dr. berkowitz who started him on Cipro and Flagyl, patient developed to have a significant black tarry stool or after he was started on the antibiotic without any epigastric pain or tenderness and he was not taking any NSAIDs at that time, patient ended up coming to the ER at [facility] yesterday his hemoglobin was stable however because of the presentation and there was suspicion for peptic ulcer disease induced GI bleed he was admitted to the hospital he was taken off aspirin and Plavix after consultation with cardiology as the patient had a stent put less than a 6 month ago and the given the okay for the patient to go for EGD tomorrow morning. Review of Systems Constitutional: Reports weakness, Denies chills, Denies chronic headaches, Denies malaise, Denies weight loss Eyes: denies blurred vision, denies bulging eye, denies decreased vision, denies diplopia Ears: deny: decreased hearing Ears, nose, mouth and throat: Denies epistaxis, Denies neck lump, Denies swelling in throat, Denies sore throat Cardiovascular: Denies chest pain, Denies claudication, Denies decreased exercise tolerance, Denies lightheadedness, Denies rapid heart beat, Denies shortness of breath, Denies syncope Respiratory: Denies congestion, Denies cough with sputum, Denies home oxygen, Denies sleep apnea, Denies snoring, Denies wheezing Gastrointestinal: Reports abdominal pain, Reports bloating, Denies BRBPR, Denies constipation, Denies diarrhea, Denies early satiety, Denies excessive gas, Denies heartburn, Denies hematemesis, Denies hematochezia, Denies jaundice, Denies loss of appetite, Denies melena, Denies nausea, Denies vomiting Genitourinary: Reports nocturia, Denies dysuria Musculoskeletal: Denies myalgias Musculoskeletal: absent: ankle pain, ankle stiffness, ankle swelling, elbow pain, elbow stiffness, elbow swelling, foot pain, foot stiffness, foot swelling, hand pain, hand stiffness, hand swelling, hip pain, hip stiffness, hip swelling, knee pain, knee stiffness, knee swelling, shoulder pain, shoulder stiffness, shoulder swelling, wrist pain, wrist stiffness, wrist swelling Integumentary: Denies pruritus, Denies rash Neurological: Denies numbness, Denies weakness Psychiatric: Denies anxiety, Denies depression Endocrine: Denies fatigue, Denies weight change Past Medical History Past Medical History: Asthma, Coronary Artery Disease (CAD), GERD/Reflux, GI Bleed, Hearing Disorder / Deafness, Hyperlipidemia, Hypertension, Liver Disease, Osteoarthritis (OA) Additional Past Medical History / Comment(s): Recurrent SBO d/t adhesions with conservative treatment and surgical treatment, recent chest pain with PCI and stent-pt states he was to have another cardiac cath today/? intervention, mild leaky heart valve, lower GI bleed many years ago with exsanguination and stayed in ICU/had transfusions then another less severe lower GI bleed a few years later, duodenal ulcer, hiatal hernia, hepatitis C d/t blood transfusion-2nd treatment successful, constipation, diverticular disease and past pre cancerous polypectomies-last colonoscopy was nromal in 2018, low back pain, L shoulder pain, gout-saw screwhead polisher in past, 06/2018 shingelles-all scabbed over, [place] bilaterally. Divirticulitis History of Any Multi-Drug Resistant Organisms: None Reported Past Surgical History: Bowel Resection, Cholecystectomy, Heart Catheterization With Stent, Orthopedic Surgery Additional Past Surgical History / Comment(s): 06/2018 PCI with stent, 2000 PCI with 2 stents, laparotomy with lysis of adhesions, R rotator cuff repair, R knee arthroscopy, R upper chest lipoma removed, bilateral cataract removals/lens implants, EGD and colonoscopies with pre cancerous polypectomies-last colonoscopy in 2018 was normal per pt. Past Anesthesia/Blood Transfusion Reactions: Blood Transfusion Reaction Additional Past Anesthesia/Blood Transfusion Reaction / Comment(s): CONTRACTED HEP C FROM A BLOOD TRANSFUSION 35-40 YEARS AGO. Date of Last Stent Placement:: JUN 2018 Past Psychological History: No Psychological Hx Reported Smoking Status: Former smoker (Patient smokes socially when he was in college he smoked for 3 years and quit about 60 years ago.) Past Alcohol Use History: None Reported Past Drug Use History: None Reported - Past Family History Mother Family Medical History: Cancer Additional Family Medical History / Comment(s): Other at age 80 from acute kidney injury following surgery. Patient had bladder suspension surgery and she developed to have possibly uterine cancer however she ended up with renal failure refused hemodialysis Father Family Medical History: Cancer, Pulmonary Embolus Additional Family Medical History / Comment(s): LUNG CANCER. Father in his mid 60s due to blood clots with history of bladder cancer . The cause of pulmonary embolism. Brother(s) Family Medical History: Cancer, Coronary Artery Disease (CAD) Additional Family Medical History / Comment(s): Patient has one brother with history of non-Hodgkin's lymphoma diagnosed 15 YEARS AGO. She does not have any sisters. He has adult children with no major medical problem basically 2 sons and a daughter. Medications and Allergies Home Medications Medication Instructions Recorded Confirmed Type Aspirin 81 mg PO DAILY 02/23/14 11/23/18 History Simvastatin [Zocor] 20 mg PO HS 02/23/14 11/23/18 History Clopidogrel [Plavix] 75 mg PO DAILY 08/05/18 11/23/18 History Losartan [Cozaar] 50 mg PO DAILY 08/05/18 11/23/18 History Omeprazole 40 mg PO DAILY #30 08/11/18 11/23/18 Rx Ciprofloxacin HCl [Cipro] 500 mg PO Q12HR 11/23/18 11/23/18 History Metoprolol Tartrate [Lopressor] 12.5 mg PO DAILY 11/23/18 11/23/18 History metroNIDAZOLE [Flagyl] 500 mg PO TID 11/23/18 11/23/18 History Allergies Allergy/AdvReac Type Severity Reaction Status Date / Time Penicillins Allergy Rash/Hives Verified 11/23/18 13:56 prednisone Allergy Rash/Hives Verified 11/23/18 13:56 Physical Exam Vitals: Vital Signs Temp Pulse Pulse Pulse Pulse Resp BP 11/24/18 05:00 97.5 F L 60 18 11/23/18 20:44 98.0 F 64 18 11/23/18 16:43 97.6 F 54 L 16 11/23/18 16:00 98.0 F 62 18 150/86 05/01/19 15:57 97.6 F 54 L 16 11/23/18 15:00 70 18 154/75 11/23/18 14:00 63 18 144/82 11/23/18 13:25 97.8 F 63 18 147/75 BP Pulse Ox 11/24/18 05:00 125/70 96 11/23/18 20:44 164/81 95 11/23/18 16:43 155/72 97 11/23/18 16:00 96 11/23/18 15:57 155/72 97 11/23/18 15:00 97 11/23/18 14:00 98 11/23/18 13:25 98 Intake and Output 11/23/18 11/24/18 11/24/18 22:59 06:59 14:59 Intake Total 1140 1140 Output Total 650 Balance 1140 490 Intake: Intake, IV Titration 600 900 Amount Levofloxacin 500Mg-D5w 100 Pmx 500 mg In Dextrose/ Water 1 100ml.bag @ 100 mls/hr IVPB Q24H [facility] Rx#: [id number] Sodium Chloride 0.9% 1, 400 800 000 ml @ 100 mls/hr IV . Q10H [facility] Rx#:[id number] metroNIDAZOLE-NS PMX 500 100 100 mg In Saline 1 100ml.bag @ 100 mls/hr IVPB Q8HR [facility] Rx#:[id number] Oral 540 240 Output: Urine 650 Other: Voiding Method Toilet Toilet Toilet Urinal Urinal # Voids 2 2 - Constitutional General appearance: average body habitus, no acute distress - EENT Eyes: anicteric sclerae, EOMI, PERRLA, no ptosis, no scleral icterus, normal appearance ENT: hard of hearing, NA/AT, normal oropharynx, no thrush, no tonsillar exudates Ears: bilateral: normal - Neck Neck: no lymphadenopathy, normal ROM, no rigidity, no stridor, no thyromegaly Carotids: bilateral: upstroke normal Thyroid: bilateral: normal size - Respiratory Respiratory: bilateral: diminished, negative: dullness, rales, rhonchi, wheezing, prolonged expiration, prolonged inspiration - Cardiovascular Rhythm: regular Heart sounds: normal: S1, S2 Abnormal Heart Sounds: systolic murmur, no S3 Gallop, no S4 Gallop - Gastrointestinal General gastrointestinal: no distended, normal bowel sounds, no rigid, soft, tenderness (Left lower quadrant tenderness.), no umbilical hernia, no ventral hernia - Integumentary Integumentary: normal, normal turgor - Neurologic Neurologic: CNII-XII intact - Musculoskeletal Musculoskeletal: gait normal, strength equal bilaterally - Psychiatric Psychiatric: A&O x's 3, appropriate affect, intact judgment & insight Results CBC & Chem 7: 11/24/18 08:34 11/23/18 14:15 Labs: Abnormal Lab Results - Last 24 Hours (Table) 11/23/18 Range/Units 14:15 Carbon Dioxide 21 L (22-30) mmol/L Creatinine 1.41 H (0.66-1.25) mg/dL Thrombosis Risk Factor Assmnt - DVT/VTE Prophylaxis DVT/VTE Prophylaxis: Mechanical Prophylaxis ordered - Choose All That Apply Each Risk Factor Represents 3 Points: Age 75 years or older Other congenital or acquired thrombophilia - If yes, enter type in comment: No Thrombosis Risk Factor Assessment Total Risk Factor Score: 3 Thrombosis Risk Factor Assessment Level: Moderate Risk Assessment and Plan Assessment: Assessment and plan: 1. Upper GI bleed likely related to peptic ulcer disease. Discontinue aspirin and Plavix after consultation with cardiology, continue with PPI, plan for EGD tomorrow morning. Monitor CBC every 8 hours for the next 24 hours. 2. CAD post-PCI and stent placement last one with the June 2018. Continue metoprolol 12.5 mg orally once every day, simvastatin 20 mg orally once every day, hold aspirin and Plavix for now. 3. Hypertension and hypertensive perivascular disease. Continue Lopressor 12.5 mg orally once every day, Cozaar 50 minute gram orally once every day. 4. Hyperlipidemia. Continue simvastatin 20 mg orally once every day. 5. GERD/PUD. Continue PPI. 6. Diverticulitis. We will continue Flagyl 500 mg IV piggyback every 8 hours as well as Levaquin 500 mg IV piggyback every 24 hours. 7. Osteoarthritis. Stable. 8. DVT prophylaxis. Continue with bilateral knee-high KERA hose. 9. GI prophylaxis. Continue patient on PPI. 10. Admit to inpatient. Estimate a length of stay 2 midnights. 11. Full code.
--- NOTE | 2018-11-24 12:30 | P.CRDCN ---
History of Present Illness History of present illness: This is a pleasant 83-year-old male past medical history significant for coronary artery disease status post recent stent placement June 2018 maintained on dual antiplatelet therapy, dyslipidemia, gastroesophageal reflux disease and recent diagnosis of shingles. He follows in the office with Dr. Benedict. We have been asked to see him in consultation secondary to suspected GI bleeding. He presented to the hospital with symptoms of abdominal discomfort. He does have a history of a bleeding duodenal ulcer in the past. He has been seen in consultation by surgical services. Occult blood was positive on admission. He denies symptoms of chest discomfort, shortness of breath, dizziness or palpitations. He is currently on a course of antibiotics secondary to acute diverticulitis. In June he underwent cardiac catheterization that revealed his left main artery was normal and patent, LAD with a patent stent in the midportion with mild to moderate in-stent restenosis but did not appear to be critical, 60-70% stenosis proximal to the stent, circumflex artery gives rise to 2 OM branches the first OM has about 60-70% stenosis in the second has 50-60% stenosis at the ostium, RCA has 80-90% stenosis proximally. At that time he underwent successful stent placements to the RCA. EKG reveals sinus rhythm with a first-degree AV block, flattened T waves inferiorly and left axis deviation. X-ray of the abdomen reveals no acute intra-abdominal process. On November 08 of this year he underwent an outpatient CT of his abdomen revealing mild acute on complicated diverticulitis and a ventral abdominal hernia containing loops of small bowel. Laboratory data reviewed, WBC 7.3, hemoglobin 14, platelets 219, sodium 137, potassium 4.3, creatinine 1.41. Current cardiac medications include aspirin 81 mg daily, Plavix 75 mg daily, simvastatin 20 mg daily, losartan 50 mg daily, Lopressor 12.5 mg daily. At the time of my exam: CONSTITUTIONAL: Denies fever. Denies chills. EYES: Denies blurred vision. Denies vision changes. Denies eye pain. EARS, NOSE, MOUTH & THROAT: Denies headache. Denies sore throat. Denies ear pain. CARDIOVASCULAR: Denies chest pain. Denies shortness of breath. Denies orthopnea. Denies PND. Denies palpitations. RESPIRATORY: Denies cough. GASTROINTESTINAL: Denies abdominal pain. Denies diarrhea. Denies constipation. Denies nausea. Denies vomiting. MUSCULOSKELETAL: Denies myalgias. INTEGUMENTARY: Denies pruitis. Denies rash. NEUROLOGIC: Denies numbness. Denies tingling. Denies weakness. PSYCHIATRIC: Denies anxiety. Denies depression. ENDOCRINE: Denies fatigue. Denies weight change. Denies polydipsia. Denies poly urina. GENITOURINARY: Denies burning, hematuria or urgency with micturation. HEMATOLOGIC: Denies history of anemia. Denies bleeding. GENERAL: This is a 83-year-old male in no apparent distress at the time of my examination. HEENT: Head is atraumatic, normocephalic. Pupils are equal, round. Sclerae anicteric. Conjunctivae are clear. Mucous membranes of the mouth are moist. Neck is supple. There is no jugular venous distention. No carotid bruit is heard. LUNGS: Clear to auscultation no wheezes, rales or rhonchi. No chest wall tenderness is noted on palpation or with deep breathing. HEART: Regular rate and rhythm without murmurs, rubs or gallops. S1 and S2 heard. ABDOMEN: Soft, nontender. Bowel sounds are heard. No organomegaly noted. EXTREMITIES: No evidence of peripheral edema and no calf tenderness noted. VASCULAR: Radial and dorsalis pedis pulses palpated, no evidence of clubbing. NEUROLOGIC: Patient is awake, alert and oriented x3. ASSESSMENT Acute upper GI bleeding likely related to peptic ulcer disease. Aspirin and Plavix have been held. Recent angioplasty was greater than 4 months ago and this is reasonable pending colonoscopy. History of coronary artery disease status post recent stent placement. Dyslipidemia Diverticulitis Hypertension PLAN Holding aspirin and Plavix is reasonable and appropriate since his recent stent was over 4 months ago. However he does have evidence of in-stent restenosis. If there is no active bleeding his Plavix should be resumed. Thank you kindly for this consultation. Nurse Practitioner note has been reviewed, I agree with a documented findings and plan of care. Patient was seen and examined. Past Medical History Past Medical History: Asthma, Coronary Artery Disease (CAD), GERD/Reflux, GI Bleed, Hearing Disorder / Deafness, Hyperlipidemia, Hypertension, Liver Disease, Osteoarthritis (OA) Additional Past Medical History / Comment(s): Recurrent SBO d/t adhesions with conservative treatment and surgical treatment, recent chest pain with PCI and st ent-pt states he was to have another cardiac cath today/? 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 Divirticulitis History of Any Multi-Drug Resistant Organisms: None Reported Past Surgical History: Bowel Resection, Cholecystectomy, Heart Catheterization With Stent, Orthopedic Surgery Additional Past Surgical History / Comment(s): 06/2018 PCI with stent, 1999 PCI with 2 stents, laparotomy with lysis of adhesions, R rotator cuff repair, R knee arthroscopy, R upper chest lipoma removed, bilateral cataract removals/lens implants, EGD and colonoscopies with pre cancerous polypectomies-last colonoscopy in 2017 was normal per pt. Past Anesthesia/Blood Transfusion Reactions: Blood Transfusion Reaction Additional Past Anesthesia/Blood Transfusion Reaction / Comment(s): CONTRACTED HEP C FROM A BLOOD TRANSFUSION 35-40 YEARS AGO. Date of Last Stent Placement:: JUN 2018 Past Psychological History: No Psychological Hx Reported Smoking Status: Former smoker (Patient smokes socially when he was in college he smoked for 3 years and quit about 60 years ago.) Past Alcohol Use History: None Reported Past Drug Use History: None Reported - Past Family History Mother Family Medical History: Cancer Additional Family Medical History / Comment(s): Other at age 82 from acute kidney injury following surgery. Patient had bladder suspension surgery and she developed to have possibly uterine cancer however she ended up with renal failure refused hemodialysis Father Family Medical History: Cancer, Pulmonary Embolus Additional Family Medical History / Comment(s): LUNG CANCER. Father in his mid 60s due to blood clots with history of bladder cancer . The cause of pulmonary embolism. Brother(s) Family Medical History: Cancer, Coronary Artery Disease (CAD) Additional Family Medical History / Comment(s): Patient has one brother with history of non-Hodgkin's lymphoma diagnosed 15 YEARS AGO. She does not have any sisters. He has adult children with no major medical problem basically 2 sons and a daughter. Medications and Allergies Home Medications Medication Instructions Recorded Confirmed Type Aspirin 81 mg PO DAILY 02/23/14 11/23/18 History Simvastatin [Zocor] 20 mg PO HS 02/23/14 11/23/18 History Clopidogrel [Plavix] 75 mg PO DAILY 08/05/18 11/23/18 History Losartan [Cozaar] 50 mg PO DAILY 08/05/18 11/23/18 History Omeprazole 40 mg PO DAILY #30 08/11/18 11/23/18 Rx Ciprofloxacin HCl [Cipro] 500 mg PO Q12HR 11/23/18 11/23/18 History Metoprolol Tartrate [Lopressor] 12.5 mg PO DAILY 11/23/18 11/23/18 History metroNIDAZOLE [Flagyl] 500 mg PO TID 11/23/18 11/23/18 History Allergies Allergy/AdvReac Type Severity Reaction Status Date / Time Penicillins Allergy Rash/Hives Verified 11/23/18 13:56 prednisone Allergy Rash/Hives Verified 11/23/18 13:56 Physical Exam Vitals: Vital Signs Temp Pulse Pulse Pulse Pulse Resp BP 11/24/18 05:00 97.5 F L 60 18 11/23/18 20:44 98.0 F 64 18 11/23/18 16:43 97.6 F 54 L 16 11/23/18 16:00 98.0 F 62 18 150/86 11/23/18 15:57 97.6 F 54 L 16 11/23/18 15:00 70 18 154/75 11/23/18 14:00 63 18 144/82 11/23/18 13:25 97.8 F 63 18 147/75 BP Pulse Ox 11/24/18 05:00 125/70 96 11/23/18 20:44 164/81 95 11/23/18 16:43 155/72 97 11/23/18 16:00 96 11/23/18 15:57 155/72 97 11/23/18 15:00 97 11/23/18 14:00 98 11/23/18 13:25 98 Intake and Output 11/23/18 11/24/18 11/24/18 22:59 06:59 14:59 Intake Total 1140 1140 Output Total 650 Balance 1140 490 Intake: Intake, IV Titration 600 900 Amount Levofloxacin 500Mg-D5w 100 Pmx 500 mg In Dextrose/ Water 1 100ml.bag @ 100 mls/hr IVPB Q24H [facility] [place] Rx#: [id number] Sodium Chloride 0.9% 1, 400 800 000 ml @ 100 mls/hr IV . Q10H [facility] Rx#:[id number] metroNIDAZOLE-NS PMX 500 100 100 mg In Saline 1 100ml.bag @ 100 mls/hr IVPB Q8HR [facility] [place] Rx#:[id number] Oral 540 240 Output: Urine 650 Other: Voiding Method Toilet Toilet Toilet Urinal Urinal # Voids 2 2 Results 11/24/18 08:34 11/23/18 14:15 Cardiac Enzymes 11/23/18 Range/Units 14:15 AST 37 (17-59) U/L Coagulation 11/23/18 Range/Units 14:15 PT 10.5 (9.0-12.0) sec APTT 24.2 (22.0-30.0) sec CBC 11/23/18 11/24/18 Range/Units 14:15 08:34 WBC 8.0 7.3 (3.8-10.6) k/uL RBC 4.66 4.54 (4.30-5.90) m/uL Hgb 14.5 14.0 (13.0-17.5) gm/dL Hct 42.5 41.9 (39.0-53.0) % Plt Count 227 219 (150-450) k/uL Comprehensive Metabolic Panel 11/23/18 Range/Units 14:15 Sodium 137 (137-145) mmol/L Potassium 4.3 (3.5-5.1) mmol/L Chloride 107 (98-107) mmol/L Carbon Dioxide 21 L (22-30) mmol/L BUN 16 (9-20) mg/dL Creatinine 1.41 H (0.66-1.25) mg/dL Glucose 96 (74-99) mg/dL Calcium 9.0 (8.4-10.2) mg/dL AST 37 (17-59) U/L ALT 37 (21-72) U/L Alkaline Phosphatase 62 (38-126) U/L Total Protein 6.5 (6.3-8.2) g/dL Albumin 4.0 (3.5-5.0) g/dL Current Medications Generic Name Dose Route Start Last Admin Trade Name Freq PRN Reason Stop Dose Admin Atorvastatin Calcium 10 mg 11/23/18 21:00 11/23/18 20:08 Lipitor PO 10 mg HS [facility] Administration Sodium Chloride 1,000 mls @ 75 mls/hr 11/23/18 15:45 11/24/18 05:41 Saline 0.9% IV 75 mls/hr .[id number] [facility] Administration Levofloxacin 500 mg/ IV 100 mls @ 100 mls/hr 11/23/18 17:00 11/23/18 18:08 Solution IVPB 100 mls/hr Q24H [facility] Administration Metronidazole 500 mg/ IV 100 mls @ 100 mls/hr 11/24/18 00:00 11/24/18 09:07 Solution IVPB 100 mls/hr Q8HR [facility] Administration Losartan Potassium 50 mg 11/23/18 21:00 11/23/18 20:41 Cozaar PO 50 mg HS [facility] Administration Metoprolol Tartrate 12.5 mg 11/24/18 09:00 11/24/18 09:11 Lopressor PO 12.5 mg DAILY [facility] Administration Naloxone HCl 0.2 mg 11/23/18 15:43 Narcan IV Q2M PRN Opioid Reversal Pantoprazole Sodium 40 mg 11/24/18 09:00 11/24/18 09:11 Protonix IV 40 mg DAILY [facility] Administration Intake and Output 11/23/18 11/24/18 11/24/18 22:59 06:59 14:59 Intake Total 1140 1140 Output Total 650 Balance 1140 490 Intake: Intake, IV Titration 600 900 Amount Levofloxacin 500Mg-D5w 100 Pmx 500 mg In Dextrose/ Water 1 100ml.bag @ 100 mls/hr IVPB Q24H [facility] Rx#: [id number] Sodium Chloride 0.9% 1, 400 800 000 ml @ 100 mls/hr IV . Q10H [facility] Rx#:[id number] metroNIDAZOLE-NS PMX 500 100 100 mg In Saline 1 100ml.bag @ 100 mls/hr IVPB Q8HR [facility] Rx#:[id number] Oral 540 240 Output: Urine 650 Other: Voiding Method Toilet Toilet Toilet Urinal Urinal # Voids 2 2 11/24/18 08:34 11/23/18 14:15
--- NOTE | 2018-11-24 14:47 | P.PN ---
Subjective Progress Note Date: 11/24/18 Patient is feeling better today. He denies having any melena with his recent bowel movement. His abdominal pain is improved. Hemoglobin stable vital signs stable afebrile Objective - Vital Signs Vital signs: Vital Signs Temp 97.4 F L 11/24/18 13:00 Pulse 52 L 11/24/18 13:00 Resp 18 11/24/18 13:00 BP 143/79 11/24/18 13:00 Pulse Ox 96 11/24/18 13:00 Intake & Output 11/23/18 11/24/18 11/24/18 18:59 06:59 18:59 Intake Total 2280 Output Total 650 Balance 1630 Weight 72.575 kg Intake: Intake, IV Titration 1500 Amount Levofloxacin 500Mg-D5w 100 Pmx 500 mg In Dextrose/ Water 1 100ml.bag @ 100 mls/hr IVPB Q24H [facility] Rx#: [id number] Sodium Chloride 0.9% 1, 1200 000 ml @ 100 mls/hr IV . Q10H [facility] Rx#:[id number] metroNIDAZOLE-NS PMX 500 200 mg In Saline 1 100ml.bag @ 100 mls/hr IVPB Q8HR [facility] Rx#:[id number] Oral 780 Output: Urine 650 Other: Voiding Method Toilet Toilet Toilet Urinal Urinal # Voids 2 3 # Bowel Movements 2 - Constitutional General appearance: Present: cooperative - Respiratory Details: Nonlabored - Cardiovascular Rhythm: regular - Gastrointestinal Gastrointestinal Comment(s): Soft nontender nondistended - Psychiatric Psychiatric: Present: A&O x's 3 - Labs CBC & Chem 7: 11/24/18 08:34 11/23/18 14:15 Labs: Abnormal Lab Results - Last 24 Hours (Table) 11/23/18 Range/Units 14:15 Carbon Dioxide 21 L (22-30) mmol/L Creatinine 1.41 H (0.66-1.25) mg/dL Assessment and Plan Assessment: GI bleed likely upper secondary to history of duodenal and peptic ulcer disease Plan: Hemoglobin stable patient denies melena. He does not appear to be actively bleeding at this time. Cardiology would like to continue with his antiplatelet therapy and I'm okay with this seen in his hemoglobin was stable upon arrival. Patient may follow-up as an outpatient for EGD when he can be off his aspirin /Plavix for 7 days prior to the procedure. He should continue PPI until then.
[2018-11-24] MEDS: CLOPIDOGREL 75 MG TAB PO SCH (15:08)
[2018-11-24] MEDS ORDERED: LEVOFLOXACIN 250MG-D5W PMX 250 MG in DEXTROSE/WATER 1 50ML.BAG IVPB SCH (17:00)
[2018-11-24] MEDS: LOSARTAN 50 MG TAB PO SCH (20:11)
[2018-11-24] MEDS: ATORVASTATIN 10 MG TAB PO SCH (20:11)
[2018-11-24] MEDS: PANTOPRAZOLE 40 MG/10 ML VIAL IV SCH (20:12)
[2018-11-25] MEDS ORDERED: LACTATED RINGERS 1,000 ML IV SCH (06:41)
[2018-11-25] MEDS: METOPROLOL TARTRATE 12.5 MG TAB PO SCH (08:11)
[2018-11-25] MEDS: CLOPIDOGREL 75 MG TAB PO SCH (08:11)
[2018-11-25] MEDS: metroNIDAZOLE-NS PMX 500 MG in SALINE 1 100ML.BAG IVPB SCH (08:11)
[2018-11-25] MEDS: PANTOPRAZOLE 40 MG/10 ML VIAL IV SCH (08:11)
[2018-11-25] MEDS: SODIUM CHLORIDE 0.9% 1,000 ML IV SCH (08:18)
[2018-11-25 11:29] VITALS: BP 139/67; PULSE 54; RESP 20; TEMP 97.7
--- NOTE | 2018-11-25 12:26 | P.PN ---
Subjective This is a pleasant 83-year-old male past medical history significant for coronary artery disease status post recent stent placement June 2018 maintained on dual antiplatelet therapy, dyslipidemia, gastroesophageal reflux disease and recent diagnosis of shingles. He follows in the office with Dr. Benedict. We have been asked to see him in consultation secondary to suspected GI bleeding. He presented to the hospital with symptoms of abdominal discomfort. He does have a history of a bleeding duodenal ulcer in the past. He has been seen in consultation by surgical services. Occult blood was positive on admission. He denies symptoms of chest discomfort, shortness of breath, dizziness or palpitations. He is currently on a course of antibiotics secondary to acute diverticulitis. In June he underwent cardiac catheterization that revealed his left main artery was normal and patent, LAD with a patent stent in the midportion with mild to moderate in-stent restenosis but did not appear to be critical, 60-70% stenosis proximal to the stent, circumflex artery gives rise to 2 OM branches the first OM has about 60-70% stenosis in the second has 50-60% stenosis at the ostium, RCA has 80-90% stenosis proximally. At that time he underwent successful stent placements to the RCA. 11/25/2018 Patient is seen and examined resting comfortably in bed in no acute distress. He denies any further episodes of blood in his stool. He denies chest pain, shortness of breath, dizziness or palpitations. Dr. berkowitz has been buying and this morning and has no plans for inpatient scopes at this time. He states he was see the patient in the office in outpatient setting and performed an EGD colonoscopy. Plavix only has been resumed. Blood pressure 130/73 heart rate 88 afebrile maintaining oxygen saturation on room air. GENERAL: This is a 83-year-old male in no apparent distress at the time of my examination. HEENT: Head is atraumatic, normocephalic. Pupils are equal, round. Sclerae anicteric. Conjunctivae are clear. Mucous membranes of the mouth are moist. Neck is supple. There is no jugular venous distention. No carotid bruit is heard. LUNGS: Clear to auscultation no wheezes, rales or rhonchi. No chest wall tenderness is noted on palpation or with deep breathing. HEART: Regular rate and rhythm without murmurs, rubs or gallops. S1 and S2 heard. EXTREMITIES: No evidence of peripheral edema and no calf tenderness noted. ASSESSMENT Acute upper GI bleeding likely related to peptic ulcer disease. Aspirin and Plavix have been held. Recent angioplasty was greater than 4 months ago and this is reasonable pending colonoscopy. History of coronary artery disease status post recent stent placement. Dyslipidemia Diverticulitis Hypertension PLAN Stable from a cardiac perspective. Resume Plavix only. Follow-up with Dr. Benedict upon discharge. Nurse Practitioner note has been reviewed, I agree with a documented findings and plan of care. Patient was seen and examined. Objective - Vital Signs Vital signs: Vital Signs Temp 97.9 F 11/25/18 04:58 Pulse 80 11/25/18 04:58 Resp 16 11/25/18 04:58 BP 130/73 11/25/18 04:58 Pulse Ox 92 L 11/25/18 04:58 Intake & Output 11/24/18 11/25/18 11/25/18 18:59 06:59 18:59 Intake Total 1380 Balance 1380 Intake: Intake, IV Titration 780 Amount Sodium Chloride 0.9% 1, 680 000 ml @ 75 mls/hr IV . [id number] [facility] Rx#:[id number] metroNIDAZOLE-NS PMX 500 100 mg In Saline 1 100ml.bag @ 100 mls/hr IVPB Q8HR [facility] Rx#:[id number] Oral 600 Other: Voiding Method Toilet Toilet Toilet Urinal Urinal Urinal # Voids 3 1 # Bowel Movements 2 - Labs CBC & Chem 7: 11/24/18 08:34 11/23/18 14:15
[2018-11-25 13:22] LABS: HCT 43.2 % (39.0-53.0); HGB 14.1 gm/dL (13.0-17.5); MCH 29.7 pg (25.0-35.0); MCHC 32.7 g/dL (31.0-37.0); Platelet Count 239 k/uL (150-450); RBC 4.75 m/uL (4.30-5.90); WBC 10.2 k/uL (3.8-10.6)
--- NOTE | 2018-11-25 13:53 | P.DS ---
Providers Date of admission: 11/23/18 15:43 Expected date of discharge: 11/25/18 Attending physician: Nikita Hall Consults: 11/23/18 15:43 Consult Physician Urgent Consulting Provider: Estiven Fernandez Consult Reason/Comments: gi hemorrhage Do you want consulting provider notified?: Yes 11/23/18 16:48 Consult Physician Routine Consulting Provider: Jamel Benedict Consult Reason/Comments: GI bleed on Plavix, patient known to Dr. Benedict Do you want consulting provider notified?: Yes Primary care physician: Clementine Arce MD Hospital Course: This is an 83-year-old male one of Dr. monzon with a previous medical history significant for CAD post-PCI and stent placement last one was in June 2018, and 2 other one is back in 1999, peptic ulcer disease with duodenal ulcer, GERD, hypertension and hypertensive cardiovascular disease, hyperlipidemia, osteoarthritis, patient was diagnosed with the acute diverticulitis based on the computed tomography scan that was done about a month ago and he was seen by Dr. fernandez who started him on Cipro and Flagyl, patient developed to have a significant black tarry stool or after he was started on the antibiotic without any epigastric pain or tenderness and he was not taking any NSAIDs at that time, patient ended up coming to the ER at [facility] yesterday his hemoglobin was stable however because of the presentation and there was suspicion for peptic ulcer disease induced GI bleed he was admitted to the hospital he was taken off aspirin and Plavix after consultation with cardiology as the patient had a stent put less than a 6 month ago and the given the okay for the patient to go for EGD tomorrow morning. 11/25: Patient has had a stable hemoglobin this morning 14.1. According to his nurse, he has been having brown stools. Dr. fernandez has evaluated patient prefer the patient be off Plavix for 7 days before doing any endoscopy. Cardiology has cleared him to resume Plavix and hold aspirin. We will plan for discharge home today patient will follow-up with a repeat CBC next week and see Dr. Arce in the office. Discharge diagnoses: 1. Upper GI bleed likely related to peptic ulcer disease. No acute blood loss. 2. CAD post-PCI and stent placement last one with the June 2018. 3. Hypertension and hypertensive cardiovascular disease. 4. Hyperlipidemia. 5. GERD/PUD. 6. Diverticulitis. 7. Osteoarthritis, generalized. Stable. Discharge plan: Home Impression and plan of care have been directed as dictated by the signing physician. Susi Cardona nurse practitioner acting as scribe for signing physician. Patient Condition at Discharge: Good Plan - Discharge Summary Discharge Rx Participant: No New Discharge Prescriptions: Continue Simvastatin [Zocor] 20 mg PO HS Clopidogrel [Plavix] 75 mg PO DAILY metroNIDAZOLE [Flagyl] 500 mg PO TID Ciprofloxacin HCl [Cipro] 500 mg PO Q12HR Metoprolol Tartrate [Lopressor] 12.5 mg PO DAILY Changed Losartan [Cozaar] 50 mg PO HS #0 Omeprazole 40 mg PO BID #30 Discontinued Aspirin 81 mg PO DAILY Discharge Medication List Simvastatin [Zocor] 20 mg PO HS 02/23/14 [History] Clopidogrel [Plavix] 75 mg PO DAILY 08/05/18 [History] Ciprofloxacin HCl [Cipro] 500 mg PO Q12HR 11/23/18 [History] Metoprolol Tartrate [Lopressor] 12.5 mg PO DAILY 11/23/18 [History] metroNIDAZOLE [Flagyl] 500 mg PO TID 11/23/18 [History] Losartan [Cozaar] 50 mg PO HS #0 11/25/18 [Rx] Omeprazole 40 mg PO BID #30 11/25/18 [Rx] Follow up Appointment(s)/Referral(s): Clementine Arce MD [Primary Care Provider] - 1 Week (Office closed. [facility] Estiven Fernandez DO [Family Provider] - 12/12/18 11:00 am Jamel Benedict MD [STAFF PHYSICIAN] - 12/02/18 9:45 am Ambulatory/Diagnostic Orders: Complete Blood Count w/diff [LAB.AMB] Location: None Selected Patient Instructions/Handouts: Gastrointestinal Bleeding (DC) Discharge Disposition: HOME SELF-CARE
== END 2018-11-25 14:48 | disposition home or self-care (01) ==
LOC: SUPCPDRO 13:22 → EC 13:22 → 3NMEDONC 15:43
PROVIDERS: ADMIT Internal Medicine; ATTEND Internal Medicine
DX: K92.2 Gastrointestinal hemorrhage, unspecified (principal); I25.10 Atherosclerotic heart disease of native coronary artery without angina pectoris; I11.9 Hypertensive heart disease without heart failure; E78.5 Hyperlipidemia, unspecified; K21.9 Gastro-esophageal reflux disease without esophagitis; K27.9 Peptic ulcer, site unspecified, unspecified as acute or chronic, without hemorrhage or perforation; K57.12 Diverticulitis of small intestine without perforation or abscess without bleeding; M15.9 Polyosteoarthritis, unspecified; T82.855A Stenosis of coronary artery stent, initial encounter; J45.909 Unspecified asthma, uncomplicated; M54.5 Low back pain; M25.512 Pain in left shoulder; H91.93 Unspecified hearing loss, bilateral; Z79.02 Long term (current) use of antithrombotics/antiplatelets; Z79.82 Long term (current) use of aspirin; Z79.899 Other long term (current) drug therapy; Z88.0 Allergy status to penicillin; Z88.8 Allergy status to other drugs, medicaments and biological substances; Z90.49 Acquired absence of other specified parts of digestive tract; Z95.5 Presence of coronary angioplasty implant and graft; Z87.891 Personal history of nicotine dependence; Z87.11 Personal history of peptic ulcer disease; Z86.19 Personal history of other infectious and parasitic diseases; Z87.19 Personal history of other diseases of the digestive system; Z80.1 Family history of malignant neoplasm of trachea, bronchus and lung; Z80.52 Family history of malignant neoplasm of bladder; Z83.6 Family history of other diseases of the respiratory system; Z84.89 Family history of other specified conditions
CPT/HCPCS: 96376 ×2; 96361 ×3; 96365; 96366 ×2; 96367; 96375; 99285; 36415; 93005; 80053; 85025 ×2; 85027; 85610; 85730; 82272; 74018; G0378 ×3; J1956 ×2; C9113 ×3

== ENCOUNTER → 2018-11-29 | Outpatient (CLI) | payer MEDICARE ==
[2018-11-29 12:43] LABS: HCT 44.3 % (39.0-53.0); HGB 14.7 gm/dL (13.0-17.5); MCH 30.1 pg (25.0-35.0); MCHC 33.2 g/dL (31.0-37.0); MCV 90.5 fL (80.0-100.0); Mean Platelet Volume 6.9; Platelet Count 255 k/uL (150-450); RDW 14.6 % (11.5-15.5)
[2018-11-29 14:50] LABS: Anisocytosis (M) Present; Band Neutrophils % 1 %; Neutrophils % (M) 67 %; Nucleated Red Blood Cells 0 /100 WBC (0-0); Total Cells Counted 100
== END | disposition home or self-care (01) ==
LOC: LABWHC1 11:17
PROVIDERS: ATTEND Nurse Practitioner Family
DX: K92.2 Gastrointestinal hemorrhage, unspecified (principal)
CPT/HCPCS: 36415; 85025

== ENCOUNTER 2019-01-16 11:03 | Inpatient (IN) | payer MEDICARE ==
[2019-01-16] MEDS ORDERED: MORPHINE SULFATE 4 MG/ML SYRINGE IV STA (11:28)
[2019-01-16] MEDS ORDERED: SODIUM CHLORIDE 0.9% 1,000 ML IV STA ×2 (11:28→13:57)
--- NOTE | 2019-01-16 11:51 | ED ---
Abdominal Pain HPI - General Chief Complaint: Abdominal Pain Stated Complaint: ABDOMINAL PAIN, Hx OF BOWEL BLOCKAGE Time Seen by Provider: 01/16/19 11:20 Source: patient, RN notes reviewed, old records reviewed Mode of arrival: ambulatory Limitations: no limitations - History of Present Illness Initial Comments: This is an 83-year-old male the ER for evaluation. Patient presents today for evaluation regarding abdominal pain. has abdominal pain with history of abdominal pain. Feels like his small bowel trucks with a history of small bowel suction. Patient has had a few abdominal surgeries, last time patient's obstruction did resolve conservatively. Patient has no fevers. No other complaints MD Complaint: abdominal pain -: days(s) Location: diffuse, epigastric, suprapubic Radiation: epigastric, suprapubic Migration to: no migration Severity: moderate Severity scale (1-10): 4 Quality: aching Consistency: constant Improves With: nothing Worsens With: nothing Associated Symptoms: nausea - Related Data Home Medications Medication Instructions Recorded Confirmed Simvastatin [Zocor] 20 mg PO HS 02/23/14 01/16/19 Clopidogrel [Plavix] 75 mg PO DAILY 08/05/18 01/16/19 Metoprolol Tartrate [Lopressor] 12.5 mg PO DAILY 11/23/18 01/16/19 Previous Rx's Medication Instructions Recorded Losartan [Cozaar] 50 mg PO HS #0 11/25/18 Omeprazole 40 mg PO BID #30 11/25/18 Allergies Allergy/AdvReac Type Severity Reaction Status Date / Time Penicillins Allergy Rash/Hives Verified 01/16/19 11:32 prednisone Allergy Rash/Hives Verified 01/16/19 11:32 Review of Systems ROS Statement: Those systems with pertinent positive or pertinent negative responses have been documented in the HPI. ROS Other: All systems not noted in ROS Statement are negative. Past Medical History Past Medical History: Asthma, Coronary Artery Disease (CAD), GERD/Reflux, GI Bleed, Hearing Disorder / Deafness, Hyperlipidemia, Hypertension, Liver Disease, Osteoarthritis (OA) Additional Past Medical History / Comment(s): Recurrent SBO d/t adhesions with conservative treatment and surgical treatment, recent chest pain with PCI and stent-pt states he was to have another cardiac cath today/? 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 Divirticulitis History of Any Multi-Drug Resistant Organisms: None Reported Past Surgical History: Bowel Resection, Cholecystectomy, Heart Catheterization With Stent, Orthopedic Surgery Additional Past Surgical History / Comment(s): 06/2018 PCI with stent, 1999 PCI with 2 stents, laparotomy with lysis of adhesions, R rotator cuff repair, R knee arthroscopy, R upper chest lipoma removed, bilateral cataract removals/lens implants, EGD and colonoscopies with pre cancerous polypectomies-last colonoscopy in 2017 was normal per pt. Past Anesthesia/Blood Transfusion Reactions: Blood Transfusion Reaction Additional Past Anesthesia/Blood Transfusion Reaction / Comment(s): CONTRACTED HEP C FROM A BLOOD TRANSFUSION 35-40 YEARS AGO. Date of Last Stent Placement:: JUN 2018 Past Psychological History: No Psychological Hx Reported Smoking Status: Former smoker Past Alcohol Use History: None Reported Past Drug Use History: None Reported - Past Family History Mother Family Medical History: Cancer Additional Family Medical History / Comment(s): Other at age 80 from acute kidney injury following surgery. Patient had bladder suspension surgery and she developed to have possibly uterine cancer however she ended up with renal failure refused hemodialysis Father Family Medical History: Cancer, Pulmonary Embolus Additional Family Medical History / Comment(s): LUNG CANCER. Father in his mid 60s due to blood clots with history of bladder cancer . The cause of pulmonary embolism. Brother(s) Family Medical History: Cancer, Coronary Artery Disease (CAD) Additional Family Medical History / Comment(s): Patient has one brother with history of non-Hodgkin's lymphoma diagnosed 15 YEARS AGO. She does not have any sisters. He has adult children with no major medical problem basically 2 sons and a daughter. General Exam Limitations: no limitations General appearance: alert, in no apparent distress Head exam: Present: atraumatic, normocephalic, normal inspection Eye exam: Present: normal appearance, PERRL, EOMI. Absent: scleral icterus, conjunctival injection, periorbital swelling ENT exam: Present: normal exam, mucous membranes moist Neck exam: Present: normal inspection. Absent: tenderness, meningismus, lymphadenopathy Respiratory exam: Present: normal lung sounds bilaterally. Absent: respiratory distress, wheezes, rales, rhonchi, stridor Cardiovascular Exam: Present: regular rate, normal rhythm, normal heart sounds. Absent: systolic murmur, diastolic murmur, rubs, gallop, clicks GI/Abdominal exam: Present: soft, distended, tenderness, normal bowel sounds. Absent: guarding, rebound, rigid Extremities exam: Present: normal inspection, full ROM, normal capillary refill. Absent: tenderness, pedal edema, joint swelling, calf tenderness Back exam: Present: normal inspection Neurological exam: Present: alert, oriented X3, CN II-XII intact Psychiatric exam: Present: normal affect, normal mood Skin exam: Present: warm, dry, intact, normal color. Absent: rash Course Vital Signs 01/16/19 01/16/19 01/16/19 11:18 12:10 13:27 Temperature 98.2 F Pulse Rate 78 72 71 Respiratory 16 18 18 Rate Blood Pressure 149/90 149/71 145/97 O2 Sat by Pulse 98 97 96 Oximetry - Reevaluation(s) Reevaluation #1: 01/16/19 13:59 Medical record is reviewed Reevaluation #2: 01/16/19 13:59 Symptoms are improved Medical Decision Making - Medical Decision Making 83 male the ER for evaluation of nausea vomiting abdominal pain. History of SBO findings of SBO. Patient be admitted for surgical evaluation and treatment - Lab Data Result diagrams: 01/16/19 11:35 01/16/19 11:35 Lab Results 01/16/19 01/16/19 01/16/19 Range/Units 11:35 11:35 11:35 WBC 11.7 H (3.8-10.6) k/uL RBC 5.50 (4.30-5.90) m/uL Hgb 16.4 (13.0-17.5) gm/dL Hct 49.7 (39.0-53.0) % MCV 90.4 (80.0-100.0) fL MCH 29.9 (25.0-35.0) pg MCHC 33.1 (31.0-37.0) g/dL RDW 14.7 (11.5-15.5) % Plt Count 250 (150-450) k/uL Neutrophils % 70 % Lymphocytes % 17 % Monocytes % 8 % Eosinophils % 2 % Basophils % 1 % Neutrophils # 8.2 H (1.3-7.7) k/uL Lymphocytes # 2.0 (1.0-4.8) k/uL Monocytes # 0.9 (0-1.0) k/uL Eosinophils # 0.2 (0-0.7) k/uL Basophils # 0.1 (0-0.2) k/uL Sodium 139 (137-145) mmol/L Potassium 5.3 H (3.5-5.1) mmol/L Chloride 105 (98-107) mmol/L Carbon Dioxide 24 (22-30) mmol/L Anion Gap 10 mmol/L BUN 18 (9-20) mg/dL Creatinine 1.13 (0.66-1.25) mg/dL Est GFR (CKD-EPI)AfAm 70 (>60 ml/min/1.73 sqM) Est GFR (CKD-EPI)NonAf 61 (>60 ml/min/1.73 sqM) Glucose 109 H (74-99) mg/dL Plasma Lactic Acid Luiz 1.8 (0.7-2.0) mmol/L Calcium 9.5 (8.4-10.2) mg/dL Phosphorus 4.0 (2.5-4.5) mg/dL Magnesium 2.2 (1.6-2.3) mg/dL Total Bilirubin 0.9 (0.2-1.3) mg/dL AST 35 (17-59) U/L ALT 31 (21-72) U/L Alkaline Phosphatase 78 (38-126) U/L Creatine Kinase 63 (55-170) U/L Troponin I (0.000-0.034) ng/mL Total Protein 7.5 (6.3-8.2) g/dL Albumin 4.6 (3.5-5.0) g/dL Amylase 57 (30-110) U/L Lipase 35 (23-300) U/L // Range/Units 11:35 WBC (3.8-10.6) k/uL RBC (4.30-5.90) m/uL Hgb (13.0-17.5) gm/dL Hct (39.0-53.0) % MCV (80.0-100.0) fL MCH (25.0-35.0) pg MCHC (31.0-37.0) g/dL RDW (11.5-15.5) % Plt Count (150-450) k/uL Neutrophils % % Lymphocytes % % Monocytes % % Eosinophils % % Basophils % % Neutrophils # (1.3-7.7) k/uL Lymphocytes # (1.0-4.8) k/uL Monocytes # (0-1.0) k/uL Eosinophils # (0-0.7) k/uL Basophils # (0-0.2) k/uL Sodium (137-145) mmol/L Potassium (3.5-5.1) mmol/L Chloride (98-107) mmol/L Carbon Dioxide (22-30) mmol/L Anion Gap mmol/L BUN (9-20) mg/dL Creatinine (0.66-1.25) mg/dL Est GFR (CKD-EPI)AfAm (>60 ml/min/1.73 sqM) Est GFR (CKD-EPI)NonAf (>60 ml/min/1.73 sqM) Glucose (74-99) mg/dL Plasma Lactic Acid Luiz (0.7-2.0) mmol/L Calcium (8.4-10.2) mg/dL Phosphorus (2.5-4.5) mg/dL Magnesium (1.6-2.3) mg/dL Total Bilirubin (0.2-1.3) mg/dL AST (17-59) U/L ALT (21-72) U/L Alkaline Phosphatase (38-126) U/L Creatine Kinase (55-170) U/L Troponin I <0.012 (0.000-0.034) ng/mL Total Protein (6.3-8.2) g/dL Albumin (3.5-5.0) g/dL Amylase (30-110) U/L Lipase (23-300) U/L - Radiology Data Radiology results: report reviewed (CT head and pelvis positive for small bowel obstruction), image reviewed Disposition Clinical Impression: Partial small bowel obstruction, Abdominal pain, Small bowel obstruction, Ileus Disposition: ADMITTED IP TO THIS [facility] Condition: Fair Is patient prescribed a controlled substance at d/c from ED?: No Referrals: Clementine Arce MD [Primary Care Provider] - 1-2 days
[2019-01-16 12:04] LABS: Basophils # (A) 0.1 k/uL (0-0.2); Basophils % (A) 1 %; Eosinophils # (A) 0.2 k/uL (0-0.7); Eosinophils % (A) 2 %; HCT 49.7 % (39.0-53.0); HGB 16.4 gm/dL (13.0-17.5); Lymphocytes % (A) 17 %; MCH 29.9 pg (25.0-35.0); MCHC 33.1 g/dL (31.0-37.0); MCV 90.4 fL (80.0-100.0); Monocytes # (A) 0.9 k/uL (0-1.0); Monocytes % (A) 8 %; Neutrophils # (A) 8.2 k/uL (1.3-7.7); Neutrophils % (A) 70 %; Platelet Count 250 k/uL (150-450); RDW 14.7 % (11.5-15.5); WBC 11.7 k/uL (3.8-10.6)
[2019-01-16 12:17] LABS: Albumin 4.6 g/dL (3.5-5.0); Calcium 9.5 mg/dL (8.4-10.2); Magnesium 2.2 mg/dL (1.6-2.3); Total Bilirubin 0.9 mg/dL (0.2-1.3); Total Protein 7.5 g/dL (6.3-8.2)
[2019-01-16 12:27] LABS: Potassium 5.3 mmol/L (3.5-5.1)
--- NOTE | 2019-01-16 13:53 | CT ---
EXAMINATION TYPE: CT abdomen pelvis w con DATE OF EXAM: 01/16/2019 COMPARISON: 11/08/2018 HISTORY: 83-year-old male Abdominal pain, history of bowel blockage TECHNIQUE: Contiguous axial scanning of the abdomen and pelvis following administration of 100 ml Iso polly 300 IV contrast. Delayed images through the kidneys and coronal/sagittal reconstructions perform ed. CT DLP: 763.6 mGycm Automated exposure control for dose reduction was used. FINDINGS: Heart upper limits of normal in size without pericardial effusion. Lung bases clear without pleural e ffusion. Tiny hiatal hernia. No focal liver lesion or biliary ductal dilatation. Small diverticulum of the second portion of the d uodenum projecting posteriorly. Portal venous system is patent. Cholecystectomy clips. Adrenal glands, spleen, pancreas appear within normal limits. A few tiny subcentimeter cortical hypodensities in the right kidney are too small for accurate CT azam racterization, likely tiny cysts. Larger hypodense lesion measuring 1.8 cm laterally in the left kidn ey compatible with a cyst. A few dilated small bowel loops are present measuring up to 3.3 cm. Multiple small bowel loops contai bernadine fluid throughout and there is scattered liquid stool throughout the colon. Left hemicolonic diverticulosis, greatest in the sigmoid colon. No pericolonic inflammatory change. Mild atherosclerotic arch calcifications. No mesenteric or retroperitoneal lymphadenopathy. Tiny omental fat-containing supraumbilical midline hernia measures 1.1 cm wide with a pinhole hernia neck. Small Dillon hernia involving short segment small bowel. Just adjacent, reference axial image 40. Larger periumbilical hernia measuring 5.7 cm wide containing a couple small bowel loops. Bladder urine distended. Prostate gland measures 4.2 cm wide. No abnormal fluid collection in the pel vis or pelvic lymphadenopathy. Bones: Moderate degenerative disc disease throughout. Facet arthropathy mid to lower lumbar spine. IMPRESSION: 1. DILATED SMALL BOWEL LOOPS MEASURING UP TO 3.3 CM WITH AIR-FLUID LEVELS THROUGHOUT. POSSIBLE TRANSI TION POINT AT THE LEVEL OF A 5.7 CM WIDE PERIUMBILICAL HERNIA. ENTERITIS VERSUS EARLY DEVELOPING SMAL L BOWEL OBSTRUCTION ARE IN THE DIFFERENTIAL. 2. TINY OMENTAL FAT-CONTAINING SUPRAUMBILICAL HERNIA MEASURING 1.1 CM WITH A PINHOLE HERNIA NECK. THE RE IS ALSO A SMALL DILLON HERNIA JUST ADJACENT INVOLVING A SHORT SEGMENT SMALL BOWEL LOOP. 3. LEFT-SIDED COLONIC DIVERTICULOSIS, GREATEST IN THE SIGMOID COLON. NO EVIDENCE FOR ACUTE DIVERTICUL ITIS.
[2019-01-16] MEDS ORDERED: ONDANSETRON 4 MG/2 ML VIAL IVP PRN (13:57)
[2019-01-16] MEDS ORDERED: DEXTROSE 5%-0.45% NACL 1,000 ML IV ONE (13:57)
[2019-01-16 14:07] LABS: Appearance,Urine Clear (Clear); Bilirubin,Urine Negative (Negative); Blood,Urine Negative (Negative); Color,Urine Yellow; Glucose,Urine (UA) Negative (Negative); Ketones,Urine Trace (Negative); Leukocyte Esterase,Urine Negative (Negative); Nitrite,Urine Negative (Negative); Protein,Urine Trace (Negative); Specific Gravity,Urine 1.041 (1.001-1.035); Urobilinogen,Urine <2.0 mg/dL (<2.0)
[2019-01-16 15:08] VITALS: BMI 26.6
[2019-01-16] MEDS: MORPHINE SULFATE 4 MG/ML SYRINGE IVP PRN (17:11)
--- NOTE | 2019-01-16 18:53 | P.GSHP ---
History of Present Illness H&P Date: 01/16/19 This is an 83 year old male well known to my service who presents with a 3 day history of abdominal pain and nausea and diarrhea. He states this began wednesday night and wednesday morning when he had loose stools and left sided abdominal pain. He admits to eating a salad the day before the pain began. He has a history of ex-lap with lysis of adhesions in the past along with an open cholecystectomy. He also has a history of CAD and is on plavix. Patient has history of bleeding gastric ulcer but denies any melena at this time. He states that since his admission his pain is resolved. He is resting comfortably in bed. Denies [place] denies Pain. passing some flatus. Past Medical History Past Medical History: Asthma, Coronary Artery Disease (CAD), Chest Pain / An angi, GERD/Reflux, GI Bleed, Hearing Disorder / Deafness, Hyperlipidemia, Hypertension, Liver Disease, Osteoarthritis (OA) Additional Past Medical History / Comment(s): Pt recently admitted to [facility] on 11/23/18 with upper GI bleed. Other hx: Recurrent SBO d/t adhesions with conservative treatment and surgical treatment, mild leaky heart valve, lower GI bleed many years ago with exsanguination and stayed in ICU/had transfusions then another less severe lower GI bleed a few years later, duodenal ulcer, hiatal hernia, hepatitis C d/t blood transfusion-2nd treatment successful, constipation, diverticulitis and past pre cancerous polypectomies-last colonoscopy was normal in 2018, low back pain, L shoulder pain, gout-saw cell tender in past, 06/2018 shingelles, [place] bilaterally. Divirticulitis History of Any Multi-Drug Resistant Organisms: None Reported Past Surgical History: Bowel Resection, Cholecystectomy, Heart Catheterization With Stent, Orthopedic Surgery Additional Past Surgical History / Comment(s): 06/2018 PCI with stent, 1999 PCI with 2 stents, laparotomy with lysis of adhesions, R rotator cuff repair, R knee arthroscopy, R upper chest lipoma removed, bilateral cataract removals/lens implants, EGD and colonoscopies with pre cancerous polypectomies-last colonoscopy in 2018 was normal per pt. Past Anesthesia/Blood Transfusion Reactions: Blood Transfusion Reaction Additional Past Anesthesia/Blood Transfusion Reaction / Comment(s): CONTRACTED HEP C FROM A BLOOD TRANSFUSION 35-40 YEARS AGO. Date of Last Stent Placement:: JUN 2018 Smoking Status: Former smoker - Past Family History Mother Family Medical History: Cancer Additional Family Medical History / Comment(s): Other at age 80 from acute kidney injury following surgery. Patient had bladder suspension surgery and she developed to have possibly uterine cancer however she ended up with renal failure refused hemodialysis Father Family Medical History: Cancer, Deep Vein Thrombosis (DVT), Pulmonary Embolus Additional Family Medical History / Comment(s): LUNG CANCER. Father in his mid 60s due to blood clots with history of bladder cancer . The cause of pulmonary embolism. Brother(s) Family Medical History: Cancer, Coronary Artery Disease (CAD) Additional Family Medical History / Comment(s): Patient has one brother with history of non-Hodgkin's lymphoma diagnosed 15 YEARS AGO. He does not have any sisters. He has adult children with no major medical problem basically 2 sons and a daughter. Medications and Allergies Home Medications Medication Instructions Recorded Confirmed Type Simvastatin [Zocor] 20 mg PO HS 02/23/14 01/16/19 History Clopidogrel [Plavix] 75 mg PO DAILY 08/05/18 01/16/19 History Metoprolol Tartrate [Lopressor] 12.5 mg PO DAILY 11/23/18 01/16/19 History Losartan [Cozaar] 50 mg PO HS #0 11/25/18 01/16/19 Rx Omeprazole 40 mg PO BID #30 11/25/18 01/16/19 Rx Allergies Allergy/AdvReac Type Severity Reaction Status Date / Time Penicillins Allergy Rash/Hives Verified 01/16/19 11:32 prednisone Allergy Rash/Hives Verified 01/16/19 11:32 Surgical - Exam Osteopathic Statement: *. No significant issues noted on an osteopathic structural exam other than those noted in the History and Physical/Consult. Vital Signs Temp Pulse Resp BP Pulse Ox 98.2 F 78 16 149/90 98 01/16/19 11:18 01/16/19 11:18 01/16/19 11:18 01/16/19 11:18 01/16/19 11:18 - General well developed, well nourished, no distress - Eyes PERRL - Neck no masses, no bruits, trachea midline - Respiratory normal expansion, normal respiratory effort - Cardiovascular Rhythm: regular - Abdomen NO TTP, reducible ventral hernia x2 Abdomen: soft, non tender - Neurologic normal coordination, normal sensation - Psychiatric oriented to time, oriented to person, oriented to place Results - Labs 01/16/19 11:35 01/16/19 11:35 Abnormal Lab Results - Last 24 Hours (Table) 01/16/19 01/16/19 01/16/19 Range/Units 11:35 11:35 13:45 WBC 11.7 H (3.8-10.6) k/uL Neutrophils # 8.2 H (1.3-7.7) k/uL Potassium 5.3 H (3.5-5.1) mmol/L Glucose 109 H (74-99) mg/dL Ur Specific [place] 1.041 H (1.001-1.035) Urine Protein Trace H (Negative) Urine Ketones Trace H (Negative) Microbiology - Last 24 Hours (Table) 01/16/19 13:45 Urine Culture - Preliminary Urine,Voided Diabetes panel 01/16/19 Range/Units 11:35 Sodium 139 (137-145) mmol/L Potassium 5.3 H (3.5-5.1) mmol/L Chloride 105 (98-107) mmol/L Carbon Dioxide 24 (22-30) mmol/L BUN 18 (9-20) mg/dL Creatinine 1.13 (0.66-1.25) mg/dL Glucose 109 H (74-99) mg/dL Calcium 9.5 (8.4-10.2) mg/dL AST 35 (17-59) U/L ALT 31 (21-72) U/L Alkaline Phosphatase 78 (38-126) U/L Total Protein 7.5 (6.3-8.2) g/dL Albumin 4.6 (3.5-5.0) g/dL Calcium panel 01/16/19 Range/Units 11:35 Calcium 9.5 (8.4-10.2) mg/dL Phosphorus 4.0 (2.5-4.5) mg/dL Albumin 4.6 (3.5-5.0) g/dL Pituitary panel 01/16/19 Range/Units 11:35 Sodium 139 (137-145) mmol/L Potassium 5.3 H (3.5-5.1) mmol/L Chloride 105 (98-107) mmol/L Carbon Dioxide 24 (22-30) mmol/L BUN 18 (9-20) mg/dL Creatinine 1.13 (0.66-1.25) mg/dL Glucose 109 H (74-99) mg/dL Calcium 9.5 (8.4-10.2) mg/dL Adrenal panel 01/16/19 Range/Units 11:35 Sodium 139 (137-145) mmol/L Potassium 5.3 H (3.5-5.1) mmol/L Chloride 105 (98-107) mmol/L Carbon Dioxide 24 (22-30) mmol/L BUN 18 (9-20) mg/dL Creatinine 1.13 (0.66-1.25) mg/dL Glucose 109 H (74-99) mg/dL Calcium 9.5 (8.4-10.2) mg/dL Total Bilirubin 0.9 (0.2-1.3) mg/dL AST 35 (17-59) U/L ALT 31 (21-72) U/L Alkaline Phosphatase 78 (38-126) U/L Total Protein 7.5 (6.3-8.2) g/dL Albumin 4.6 (3.5-5.0) g/dL - Imaging CT scan - abdomen: report reviewed, image reviewed CT scan - pelvis: report reviewed, image reviewed Assessment and Plan Assessment: Reducible ventral incisional hernia Partial small bowel obstruction vs. gastroenteritis Plan: Patient is asymptomatic at this time. His hernias are reducible. I discussed w ith him due to his cardiac history of being on plavix it would be best to avoid surgical intervention if at all possible. Plan is to keep patient NPO and if he is still passing gas and asymptomatic in the AM start clear liquid diet. No plans for acute intervention at this time.
[2019-01-16] MEDS: LOSARTAN 50 MG TAB PO SCH (22:47)
[2019-01-16] MEDS: ATORVASTATIN 10 MG TAB PO SCH (22:47)
[2019-01-16] MEDS: PANTOPRAZOLE 40 MG TABLET PO SCH (22:47)
[2019-01-17] MEDS: ENOXAPARIN 40 MG/0.4 ML SYRINGE SQ SCH (06:59)
[2019-01-17] MEDS: PANTOPRAZOLE 40 MG/10 ML VIAL IVP SCH (08:24)
[2019-01-17] MEDS: PANTOPRAZOLE 40 MG TABLET PO SCH (08:25)
[2019-01-17] MEDS: METOPROLOL TARTRATE 12.5 MG TAB PO SCH (08:25)
[2019-01-17 10:09] LABS: Basophils # (A) 0.1 k/uL (0-0.2); Basophils % (A) 1 %; Eosinophils # (A) 0.5 k/uL (0-0.7); Eosinophils % (A) 5 %; HCT 44.7 % (39.0-53.0); HGB 14.5 gm/dL (13.0-17.5); Lymphocytes # (A) 2.2 k/uL (1.0-4.8); Lymphocytes % (A) 25 %; MCH 29.9 pg (25.0-35.0); MCHC 32.5 g/dL (31.0-37.0); Mean Platelet Volume 6.7; Monocytes # (A) 0.6 k/uL (0-1.0); Monocytes % (A) 7 %; Neutrophils # (A) 5.2 k/uL (1.3-7.7); Neutrophils % (A) 59 %; Platelet Count 230 k/uL (150-450); RBC 4.86 m/uL (4.30-5.90); RDW 13.5 % (11.5-15.5); WBC 8.9 k/uL (3.8-10.6)
--- NOTE | 2019-01-17 10:20 | P.PN ---
Subjective Progress Note Date: 01/17/19 Patient states he had no abdominal pain overnight. He passed a large BM this AM. He was started on clears and is tolerating these well. No emesis Objective - Vital Signs Vital signs: Vital Signs Temp 97.7 F 01/17/19 05:15 Pulse 67 01/17/19 05:15 Resp 20 01/17/19 08:00 BP 130/75 01/17/19 05:15 Pulse Ox 94 L 01/17/19 05:15 Intake & Output 01/16/19 01/17/19 01/17/19 18:59 06:59 18:59 Intake Total 100 Balance 100 Weight 72.575 kg Intake: Oral 100 Other: # Voids 0 - Constitutional General appearance: Present: cooperative - Respiratory Details: nonlabored - Cardiovascular Rhythm: regular - Gastrointestinal Gastrointestinal Comment(s): s/nt/nd reducible ventral hernia - Psychiatric Psychiatric: Present: A&O x's 3 - Labs CBC & Chem 7: 01/17/19 09:44 01/16/19 11:35 Labs: Abnormal Lab Results - Last 24 Hours (Table) 01/16/19 01/16/19 01/16/19 Range/Units 11:35 11:35 13:45 WBC 11.7 H (3.8-10.6) k/uL Neutrophils # 8.2 H (1.3-7.7) k/uL Potassium 5.3 H (3.5-5.1) mmol/L Glucose 109 H (74-99) mg/dL Ur Specific [place] 1.041 H (1.001-1.035) Urine Protein Trace H (Negative) Urine Ketones Trace H (Negative) Microbiology - Last 24 Hours (Table) 01/16/19 13:45 Urine Culture - Preliminary Urine,Voided Assessment and Plan Assessment: Reducible ventral incisional hernia Partial small bowel obstruction vs. gastroenteritis Plan: Patient is doing well today, pain is resolved and he had a liquid BM. Tolerating clears, if he continues to do well on clears advance as tolerated to soft. Plan is for follow up in the outpatient setting for ventral hernia repair when he can be off of plavix and anticoagulation
[2019-01-17 10:46] LABS: Calcium 8.7 mg/dL (8.4-10.2); Potassium 4.1 mmol/L (3.5-5.1)
[2019-01-17] MEDS: CLOPIDOGREL 75 MG TAB PO SCH (14:11)
[2019-01-17] MEDS: ATORVASTATIN 10 MG TAB PO SCH (20:10)
[2019-01-17] MEDS: LOSARTAN 50 MG TAB PO SCH (20:11)
--- NOTE | 2019-01-17 21:49 | P.CONS ---
History of Present Illness - Reason for Consult Consult date: 01/16/19 Medical Management Requesting physician: Estiven Fernandez - Chief Complaint Partial small bowel obstruction. - History of Present Illness This is an 83-year-old male one of Dr. monzon with a previous medical history significant for CAD post-PCI and stent placement last one was in June 2018, and 2 other one is back in 1999, peptic ulcer disease with duodenal ulcer, GERD, hypertension and hypertensive cardiovascular disease, hyperlipidemia, osteoarthritis, patient was diagnosed with the acute diverticulitis in the past and was admitted to [facility] due to possible GI bleed back in November 2018, patient was supposed to be taken off of his plavix and kept on ASA 81 mg orally daily after he saw and he was supposed to have EGD as an outpatient, which was tender done yet, is that he was kept on Plavix 75 mg orally once every day, and presented to the emergency department at [facility] because of increased abdominal pain associated with nausea and poor appetite and diarrhea that started about a few days ago, he was supposed to go see his primary care physician office today however his drop in the ER and went to see the doctor herself, patient underwent computed tomography scan of the abdomen and pelvis that showed partial small bowel obstruction, and he was admitted to the hospital under general surgery were asked to see patient for medical management. Review of Systems Constitutional: Denies chronic pain, Denies fatigue, Denies lethargy, Denies weakness Eyes: denies blurred vision, denies bulging eye, denies decreased vision, denies diplopia Ears: deny: decreased hearing Ears, nose, mouth and throat: Denies dysphagia, Denies neck lump, Denies swelling in throat, Denies sore throat Cardiovascular: Reports decreased exercise tolerance, Reports shortness of breath, Denies chest pain, Denies lightheadedness, Denies syncope Respiratory: Denies congestion, Denies cough with sputum, Denies home oxygen, Denies sleep apnea, Denies snoring, Denies wheezing Gastrointestinal: Reports abdominal pain, Reports bloating, Reports change in bowel habits, Reports diarrhea, Reports heartburn, Reports loss of appetite, Reports nausea, Reports vomiting, Denies melena Genitourinary: Reports nocturia, Denies dysuria Musculoskeletal: Denies myalgias Musculoskeletal: absent: ankle pain, ankle stiffness, ankle swelling, elbow pain, elbow stiffness, elbow swelling, foot pain, foot stiffness, foot swelling, hand pain, hand stiffness, hand swelling, hip pain, hip stiffness, hip swelling, knee pain, knee stiffness, knee swelling, shoulder pain, shoulder stiffness, shoulder swelling, wrist pain, wrist stiffness, wrist swelling Integumentary: Denies pruritus, Denies rash Neurological: Denies numbness, Denies weakness Psychiatric: Denies anxiety, Denies depression Endocrine: Denies fatigue, Denies weight change Past Medical History Past Medical History: Asthma, Coronary Artery Disease (CAD), Chest Pain / Angina, GERD/Reflux, GI Bleed, Hearing Disorder / Deafness, Hyperlipidemia, Hypertension, Liver Disease, Osteoarthritis (OA) Additional Past Medical History / Comment(s): Pt recently admitted to [facility] on 11/23/18 with upper GI bleed. 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 Divirticulitis History of Any Multi-Drug Resistant Organisms: None Reported Past Surgical History: Bowel Resection, Cholecystectomy, Heart Catheterization With Stent, Orthopedic Surgery Additional Past Surgical History / Comment(s): 06/2018 PCI with stent, 1999 PCI with 2 stents, laparotomy with lysis of adhesions, R rotator cuff repair, R knee arthroscopy, R upper chest lipoma removed, bilateral cataract removals/lens implants, EGD and colonoscopies with pre cancerous polypectomies-last colonoscopy in 2018 was normal per pt. Past Anesthesia/Blood Transfusion Reactions: Blood Transfusion Reaction Additional Past Anesthesia/Blood Transfusion Reaction / Comm: CONTRACTED HEP C FROM A BLOOD TRANSFUSION 35-40 YEARS AGO. Date of Last Stent Placement:: JUN 2018 Smoking Status: Former smoker - Past Family History Mother Family Medical History: Cancer Additional Family Medical History / Comment(s): Other at age 80 from acute kidney injury following surgery. Patient had bladder suspension surgery and she developed to have possibly uterine cancer however she ended up with renal failure refused hemodialysis Father Family Medical History: Cancer, Deep Vein Thrombosis (DVT), Pulmonary Embolus Additional Family Medical History / Comment(s): LUNG CANCER. Father in his mid 60s due to blood clots with history of bladder cancer . The cause of pulmonary embolism. Brother(s) Family Medical History: Cancer, Coronary Artery Disease (CAD) Additional Family Medical History / Comment(s): Patient has one brother with history of non-Hodgkin's lymphoma diagnosed 15 YEARS AGO. He does not have any sisters. He has adult children with no major medical problem basically 2 sons and a daughter. Medications and Allergies Home Medications Medication Instructions Recorded Confirmed Type Simvastatin [Zocor] 20 mg PO HS 02/23/14 01/16/19 History Clopidogrel [Plavix] 75 mg PO DAILY 08/05/18 01/16/19 History Metoprolol Tartrate [Lopressor] 12.5 mg PO DAILY 11/23/18 01/16/19 History Losartan [Cozaar] 50 mg PO HS #0 11/25/18 01/16/19 Rx Omeprazole 40 mg PO BID #30 11/25/18 01/16/19 Rx Allergies Allergy/AdvReac Type Severity Reaction Status Date / Time Penicillins Allergy Rash/Hives Verified 01/16/19 11:32 prednisone Allergy Rash/Hives Verified 01/16/19 11:32 Physical Exam Vitals: Vital Signs Temp Pulse Pulse Resp BP BP Pulse Ox 01/16/19 17:04 59 L 16 01/16/19 16:02 97.3 F L 59 L 16 171/82 95 01/16/19 15:11 97 F L 63 17 164/91 99 01/16/19 13:27 71 18 145/97 96 01/16/19 12:10 72 18 149/71 97 01/16/19 11:18 98.2 F 78 16 149/90 98 Intake and Output 01/16/19 01/16/19 01/16/19 06:59 14:59 22:59 Other: Weight 72.575 kg - Constitutional General appearance: average body habitus, no acute distress - EENT Eyes: anicteric sclerae, EOMI, PERRLA, no ptosis, no scleral icterus, normal appearance ENT: hearing grossly normal, NA/AT, normal oropharynx, no thrush Ears: bilateral: normal - Neck Neck: no lymphadenopathy, normal ROM, no rigidity, no stridor, no thyromegaly Carotids: bilateral: upstroke normal Thyroid: bilateral: normal size - Respiratory Respiratory: bilateral: diminished, negative: dullness, rales, rhonchi, wheezing, prolonged expiration, prolonged inspiration - Cardiovascular Rhythm: regular Heart sounds: normal: S1, S2 Abnormal Heart Sounds: systolic murmur, no S3 Gallop, no S4 Gallop - Gastrointestinal General gastrointestinal: distended, hyperactive bowel sounds, soft, no splenomegaly, tenderness, umbilical hernia, ventral hernia - Integumentary Integumentary: normal, normal turgor - Musculoskeletal Musculoskeletal: gait normal, strength equal bilaterally - Psychiatric Psychiatric: A&O x's 3, appropriate affect, intact judgment & insight Results CBC & Chem 7: 01/17/19 09:44 01/17/19 09:44 Labs: Abnormal Lab Results - Last 24 Hours (Table) 01/16/19 01/16/19 01/16/19 Range/Units 11:35 11:35 13:45 WBC 11.7 H (3.8-10.6) k/uL Neutrophils # 8.2 H (1.3-7.7) k/uL Potassium 5.3 H (3.5-5.1) mmol/L Glucose 109 H (74-99) mg/dL Ur Specific [place] 1.041 H (1.001-1.035) Urine Protein Trace H (Negative) Urine Ketones Trace H (Negative) Microbiology - Last 24 Hours (Table) 01/16/19 13:45 Urine Culture - Preliminary Urine,Voided Assessment and Plan Assessment: Assessment and plan: 1. Partial small bowel obstruction. Patient at this point did not have an NG tube placed he is not throwing up anymore has bit of nausea was seen earlier by surgery was recommended. The patient on nothing per mouth for the next 24 hours and reevaluate in the morning, hold off NG tube for now, continue morphine sulfate 4 mg IV push every 4 hours, continue Zofran 4 mg IV push every 6 hours as needed, increase ambulation. 2. CAD post-PCI and stent placement last one with the June 2018. Continue metoprolol 12.5 mg orally once every day, simvastatin 20 mg orally once every day, hold Plavix for the next 24 hours and resume tomorrow morning. 3. Hypertension and hypertensive perivascular disease. Continue Lopressor 12.5 mg orally once every day, Cozaar 50 milligrams orally once every day. 4. Hyperlipidemia. Continue simvastatin 20 mg orally once every day. 5. GERD/PUD. Continue PPI. 6. History of diverticulitis. Resolved. 7. Osteoarthritis. Stable. 8. DVT prophylaxis. Continue with Lovenox 40 mg subcutaneously every 24 hours. 9. GI prophylaxis. Continue patient on PPI. 10. Thank you for the consult we will follow with you.
--- NOTE | 2019-01-17 21:51 | P.PN ---
Subjective Progress Note Date: 01/17/19 This is an 83-year-old male one of Dr. monzon with a previous medical history significant for CAD post-PCI and stent placement last one was in June 2018, and 2 other one is back in 1999, peptic ulcer disease with duodenal ulcer, GERD, hypertension and hypertensive cardiovascular disease, hyperlipidemia, osteoarthritis, patient was diagnosed with the acute diverticulitis in the past and was admitted to [facility] due to possible GI bleed back in November 2018, patient was supposed to be taken off of his plavix and kept on ASA 81 mg orally daily after he saw and he was supposed to have EGD as an outpatient, which was tender done yet, is that he was kept on Plavix 75 mg orally once every day, and presented to the emergency department at [facility] because of increased abdominal pain associated with nausea and poor appetite and diarrhea that started about a few days ago, he was supposed to go see his primary care physician office today however his drop in the ER and went to see the doctor herself, patient underwent computed tomography scan of the abdomen and pelvis that showed partial small bowel obstruction, and he was admitted to the hospital under general surgery were asked to see patient for medical management. 01/17: Patient is sitting up in bed in no apparent distress he is feeling a bit better today denies any chest pain, shortness breath, he continues to have some abdominal cramps, he continues to have diarrhea, he is tolerating clear liquid diet very well, continue current pain management and antiemetics, we will discharge the patient is next 24 hours if he is able to keep things down. Review of systems: Constitutional: Well-developed, appearing stated age. HEENT: Wears glasses, no sore throat, no blurred vision, no dysphagia. Respiratory: No coughing, hemoptysis, no pleurisy, no shortness breath. Cardiovascular: No chest pain, shortness breath, no orthopnea or PND no nocturia. Gastrointestinal: Abdominal pain, bloating, burping, nausea but no vomiting, no hemoptysis or hematochezia. Genitourinary: No dysuria or hematuria positive for nocturia. Behavior: No anxiety or depression Neurological: No seizure, headache, migraine. Endocrine: Overweight. Musculoskeletal: Osteoarthritis aches. Integumentary: No bruising or ecchymosis. Objective - Vital Signs Vital signs: Vital Signs Temp 97.7 F 01/17/19 05:15 Pulse 67 01/17/19 05:15 Resp 20 01/17/19 08:00 BP 130/75 01/17/19 05:15 Pulse Ox 94 L 01/17/19 05:15 Intake & Output 01/16/19 01/17/19 01/17/19 18:59 06:59 18:59 Intake Total 100 Balance 100 Weight 72.575 kg Intake: Oral 100 Other: # Voids 0 - Exam - Constitutional General appearance: average body habitus, no acute distress - EENT Eyes: anicteric sclerae, EOMI, PERRLA, no ptosis, no scleral icterus, normal appearance ENT: hearing grossly normal, NA/AT, normal oropharynx, no thrush Ears: bilateral: normal - Neck Neck: no lymphadenopathy, normal ROM, no rigidity, no stridor, no thyromegaly Carotids: bilateral: upstroke normal Thyroid: bilateral: normal size - Respiratory Respiratory: bilateral: diminished, negative: dullness, rales, rhonchi, wheezing, prolonged expiration, prolonged inspiration - Cardiovascular Rhythm: regular Heart sounds: normal: S1, S2 Abnormal Heart Sounds: systolic murmur, no S3 Gallop, no S4 Gallop - Gastrointestinal General gastrointestinal: distended, hyperactive bowel sounds, soft, no splenomegaly, tenderness, umbilical hernia, ventral hernia - Integumentary Integumentary: normal, normal turgor - Musculoskeletal Musculoskeletal: gait normal, strength equal bilaterally - Psychiatric Psychiatric: A&O x's 3, appropriate affect, intact judgment & insight - Labs CBC & Chem 7: 01/18/19 09:19 01/18/19 09:19 Labs: Abnormal Lab Results - Last 24 Hours (Table) 01/16/19 01/16/19 01/16/19 Range/Units 11:35 11:35 13:45 WBC 11.7 H (3.8-10.6) k/uL Neutrophils # 8.2 H (1.3-7.7) k/uL Potassium 5.3 H (3.5-5.1) mmol/L Glucose 109 H (74-99) mg/dL Ur Specific [place] 1.041 H (1.001-1.035) Urine Protein Trace H (Negative) Urine Ketones Trace H (Negative) Microbiology - Last 24 Hours (Table) 01/16/19 13:45 Urine Culture - Preliminary Urine,Voided Assessment and Plan Assessment: Assessment and plan: 1. Partial small bowel obstruction. Patient at this point did not have an NG tube placed he is not throwing up anymore has bit of nausea was seen earlier by surgery was recommended. The patient on nothing per mouth for the next 24 hours and reevaluate in the morning, hold off NG tube for now, continue morphine sulfate 4 mg IV push every 4 hours, continue Zofran 4 mg IV push every 6 hours as needed, increase ambulation. 2. CAD post-PCI and stent placement last one with the June 2018. Continue metoprolol 12.5 mg orally once every day, simvastatin 20 mg orally once every day, restart Plavix 75 mg orally once every day. 3. Hypertension and hypertensive perivascular disease. Continue Lopressor 12.5 mg orally once every day, Cozaar 50 milligrams orally once every day. 4. Hyperlipidemia. Continue simvastatin 20 mg orally once every day. 5. GERD/PUD. Continue PPI. 6. History of diverticulitis. Resolved. 7. Osteoarthritis. Stable. 8. DVT prophylaxis. Continue with Lovenox 40 mg subcutaneously every 24 hours. 9. GI prophylaxis. Continue patient on PPI. 10. Home tomorrow morning.
[2019-01-17 22:28] VITALS: RESP 20
[2019-01-18 06:07] VITALS: BP 114/73; PULSE 74; TEMP 98.2
[2019-01-18] MEDS: ENOXAPARIN 40 MG/0.4 ML SYRINGE SQ SCH (09:00)
[2019-01-18] MEDS: CLOPIDOGREL 75 MG TAB PO SCH (09:00)
[2019-01-18] MEDS: PANTOPRAZOLE 40 MG/10 ML VIAL IVP SCH (09:00)
[2019-01-18] MEDS: METOPROLOL TARTRATE 12.5 MG TAB PO SCH (09:00)
[2019-01-18] MEDS: MORPHINE SULFATE 4 MG/ML SYRINGE IVP PRN (09:01)
[2019-01-18 10:22] LABS: Albumin 4.1 g/dL (3.5-5.0); Calcium 9.4 mg/dL (8.4-10.2); Potassium 4.4 mmol/L (3.5-5.1); Total Bilirubin 0.7 mg/dL (0.2-1.3); Total Protein 6.7 g/dL (6.3-8.2)
[2019-01-18 10:30] LABS: Basophils # (A) 0.1 k/uL (0-0.2); Basophils % (A) 1 %; Eosinophils # (A) 0.3 k/uL (0-0.7); Eosinophils % (A) 3 %; HCT 46.5 % (39.0-53.0); HGB 15.1 gm/dL (13.0-17.5); Lymphocytes # (A) 1.5 k/uL (1.0-4.8); Lymphocytes % (A) 17 %; MCH 29.9 pg (25.0-35.0); MCHC 32.6 g/dL (31.0-37.0); MCV 91.6 fL (80.0-100.0); Mean Platelet Volume 7.4; Monocytes # (A) 0.6 k/uL (0-1.0); Monocytes % (A) 7 %; Neutrophils % (A) 69 %; Platelet Count 225 k/uL (150-450); RBC 5.07 m/uL (4.30-5.90); RDW 14.9 % (11.5-15.5); WBC 8.8 k/uL (3.8-10.6)
--- NOTE | 2019-01-18 12:54 | P.PN ---
Subjective Progress Note Date: 01/18/19 Patient states he had no abdominal pain overnight. He passed BM and flatus. No complaints tolerating diet Objective - Vital Signs Vital signs: Vital Signs Temp 98.2 F 01/18/19 04:55 Pulse 74 01/18/19 04:55 Resp 20 01/18/19 04:55 BP 114/73 01/18/19 04:55 Pulse Ox 97 01/18/19 04:55 Intake & Output 01/17/19 01/18/19 01/18/19 18:59 06:59 18:59 Intake Total 700 240 Balance 700 240 Intake: Oral 700 240 Other: # Voids 2 1 - Constitutional General appearance: Present: cooperative - Respiratory Details: nonlabored - Cardiovascular Rhythm: regular - Gastrointestinal Gastrointestinal Comment(s): s/nt/nd - Psychiatric Psychiatric: Present: A&O x's 3 - Labs CBC & Chem 7: 01/18/19 09:19 01/18/19 09:19 Labs: Abnormal Lab Results - Last 24 Hours (Table) 01/18/19 Range/Units 09:19 Creatinine 1.30 H (0.66-1.25) mg/dL Glucose 126 H (74-99) mg/dL Microbiology - Last 24 Hours (Table) 01/16/19 13:45 Urine Culture - Final Urine,Voided Assessment and Plan Assessment: Reducible ventral incisional hernia Partial small bowel obstruction vs. gastroenteritis Plan: Patient is doing well today, tolerating diet and stable for DC. Plan is for follow up in the outpatient setting for ventral hernia repair when he can be off of plavix and anticoagulation
--- NOTE | 2019-01-18 12:56 | P.DS ---
Providers Date of admission: 01/16/19 13:56 Attending physician: Estiven Fernandez DO Consults: 01/16/19 13:56 Consult Physician Routine Consulting Provider: Clementine Arce Consult Reason/Comments: known Do you want consulting provider notified?: Yes Primary care physician: Clementine Arce MD Hospital Course: This 83-year-old male who presented with partial bowel obstruction and abdominal pain possibly secondary to multiple small ventral hernias that are reducible. Patient has complex past medical history CAD and is on Plavix. For these reasons once the hernia was reduced and the patient's symptoms subsided he was treated conservatively. Hospital day 3 he was tolerating a soft diet abdominal pain is completely resolved and he was stable. He is having bowel movements and flatus. He is discharged home in stable condition with instructions to follow- up as an outpatient when he is cleared to hold Plavix and anticoagulation for ventral hernia repair. Patient was agreeable with this plan. He'll follow-up with myself and Dr. Arce. Patient Condition at Discharge: Stable Plan - Discharge Summary Discharge Rx Participant: No New Discharge Prescriptions: No Action RX: Simvastatin [Zocor] 20 mg PO HS RX: Clopidogrel [Plavix] 75 mg PO DAILY RX: Metoprolol Tartrate [Lopressor] 12.5 mg PO DAILY RX: Losartan [Cozaar] 50 mg PO HS #0 RX: Omeprazole 40 mg PO BID #30 Discharge Medication List RX: Simvastatin [Zocor] 20 mg PO HS 02/23/14 [History] RX: Clopidogrel [Plavix] 75 mg PO DAILY 08/05/18 [History] RX: Metoprolol Tartrate [Lopressor] 12.5 mg PO DAILY 11/23/18 [History] RX: Losartan [Cozaar] 50 mg PO HS #0 11/25/18 [Rx] RX: Omeprazole 40 mg PO BID #30 11/25/18 [Rx] Follow up Appointment(s)/Referral(s): Clementine Arce MD [Primary Care Provider] - 1-2 days Estiven Fernandez DO [Doctor of Osteopathic Medicine] - 1 Week
== END 2019-01-18 13:55 | disposition home or self-care (01) | DRG 395 ==
LOC: EC 11:03 → 4MS4W 13:56
PROVIDERS: ADMIT Student in an Organized Health Care Education/Training Program; ATTEND Student in an Organized Health Care Education/Training Program
DX: K43.0 Incisional hernia with obstruction, without gangrene (principal); I11.9 Hypertensive heart disease without heart failure; B19.20 Unspecified viral hepatitis C without hepatic coma; E78.5 Hyperlipidemia, unspecified; I25.10 Atherosclerotic heart disease of native coronary artery without angina pectoris; J45.909 Unspecified asthma, uncomplicated; M19.90 Unspecified osteoarthritis, unspecified site; K44.9 Diaphragmatic hernia without obstruction or gangrene; K21.9 Gastro-esophageal reflux disease without esophagitis; M47.9 Spondylosis, unspecified; H91.90 Unspecified hearing loss, unspecified ear; Z79.02 Long term (current) use of antithrombotics/antiplatelets; Z79.899 Other long term (current) drug therapy; Z87.11 Personal history of peptic ulcer disease; Z86.010 Personal history of colon polyps; Z87.39 Personal history of other diseases of the musculoskeletal system and connective tissue; Z95.5 Presence of coronary angioplasty implant and graft; Z86.19 Personal history of other infectious and parasitic diseases; Z90.49 Acquired absence of other specified parts of digestive tract; Z87.891 Personal history of nicotine dependence; Z98.890 Other specified postprocedural states; Z87.2 Personal history of diseases of the skin and subcutaneous tissue; Z98.42 Cataract extraction status, left eye; Z98.41 Cataract extraction status, right eye; Z96.1 Presence of intraocular lens; Z88.0 Allergy status to penicillin; Z88.8 Allergy status to other drugs, medicaments and biological substances; Z80.1 Family history of malignant neoplasm of trachea, bronchus and lung; Z83.2 Family history of diseases of the blood and blood-forming organs and certain disorders involving the immune mechanism; Z80.52 Family history of malignant neoplasm of bladder; Z82.49 Family history of ischemic heart disease and other diseases of the circulatory system; Z80.7 Family history of other malignant neoplasms of lymphoid, hematopoietic and related tissues
CPT/HCPCS: 36415; 74177; 80048; 80053; 81003; 82150; 82550; 83605; 83690; 83735; 84100; 84484; 85025; 87086; 96361; 96374; 99285

== ENCOUNTER 2019-02-14 01:20 | Observation (INO) | payer MEDICARE ==
[2019-02-14] MEDS ORDERED: ASPIRIN 81 MG PO STA (01:44)
--- NOTE | 2019-02-14 01:45 | ED ---
Chest Pain HPI - General Chief Complaint: Chest Pain Stated Complaint: Chest Pain Time Seen by Provider: 02/14/19 01:43 Source: patient Limitations: no limitations - History of Present Illness Initial Comments: Benjy is an 83-year-old gentleman with past medical history of known coronary artery disease who had stenting in #2018. Patient has subsequently been evaluated pretty thoroughly for upper and lower GI bleeding. He's been compliant with his Plavix. Patient reports that he went to bed in his usual state of health between 9 and 9:30 PM. Patient was woken suddenly at 11:30 PM with stabbing pain in his left-sided chest. Patient reports that the pain comes and goes. The pain occur suddenly and lasts for a number of seconds and then resolves. Patient reports that it happens nearly every minute. Chest pain is associated with shortness of breath. No diaphoresis or lightheadedness. - Related Data Home Medications Medication Instructions Recorded Confirmed Simvastatin [Zocor] 20 mg PO HS 02/23/14 01/16/19 Clopidogrel [Plavix] 75 mg PO DAILY 08/05/18 01/16/19 Metoprolol Tartrate [Lopressor] 12.5 mg PO DAILY 11/23/18 01/16/19 Previous Rx's Medication Instructions Recorded Losartan [Cozaar] 50 mg PO HS #0 11/25/18 Omeprazole 40 mg PO BID #30 11/25/18 Allergies Allergy/AdvReac Type Severity Reaction Status Date / Time Penicillins Allergy Rash/Hives Verified 02/14/19 01:25 prednisone Allergy Rash/Hives Verified 02/14/19 01:25 Review of Systems ROS Statement: Those systems with pertinent positive or pertinent negative responses have been documented in the HPI. ROS Other: All systems not noted in ROS Statement are negative. EKG Findings - EKG Comments: EKG Findings:: EKG obtained due to complaints of chest pain. EKG obtained at 1:38am Rate 61, rhythm sinus with first degree AV block, Leftward axis, MT prolonged 218, QRS 72, QTc 416. No acute ST elevations or depressions. Past Medical History Past Medical History: Asthma, Coronary Artery Disease (CAD), Chest Pain / Angina, GERD/Reflux, GI Bleed, Hearing Disorder / Deafness, Hyperlipidemia, Hypertension, Liver Disease, Osteoarthritis (OA) Additional Past Medical History / Comment(s): Pt recently admitted to [facility] on 11/23/18 with upper GI bleed. 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 Divirticulitis History of Any Multi-Drug Resistant Organisms: None Reported Past Surgical History: Bowel Resection, Cholecystectomy, Heart Catheterization With Stent, Orthopedic Surgery Additional Past Surgical History / Comment(s): 06/2018 PCI with stent, 1999 PCI with 2 stents, laparotomy with lysis of adhesions, R rotator cuff repair, R knee arthroscopy, R upper chest lipoma removed, bilateral cataract removals/lens implants, EGD and colonoscopies with pre cancerous polypectomies-last colonoscopy in 2018 was normal per pt. Past Anesthesia/Blood Transfusion Reactions: Blood Transfusion Reaction Additional Past Anesthesia/Blood Transfusion Reaction / Comment(s): CONTRACTED HEP C FROM A BLOOD TRANSFUSION 35-40 YEARS AGO. Date of Last Stent Placement:: JUN 2018 Past Psychological History: No Psychological Hx Reported Smoking Status: Former smoker Past Alcohol Use History: Rare Past Drug Use History: None Reported - Past Family History Mother Family Medical History: Cancer Additional Family Medical History / Comment(s): Other at age 80 from acute kidney injury following surgery. Patient had bladder suspension surgery and she developed to have possibly uterine cancer however she ended up with renal failure refused hemodialysis Father Family Medical History: Cancer, Deep Vein Thrombosis (DVT), Pulmonary Embolus Additional Family Medical History / Comment(s): LUNG CANCER. Father in his mid 60s due to blood clots with history of bladder cancer . The cause of pulmonary embolism. Brother(s) Family Medical History: Cancer, Coronary Artery Disease (CAD) Additional Family Medical History / Comment(s): Patient has one brother with history of non-Hodgkin's lymphoma diagnosed 15 YEARS AGO. He does not have any sisters. He has adult children with no major medical problem basically 2 sons and a daughter. General Exam - General Exam Comments Initial Comments: Physical Exam GENERAL: Patient is well-developed and well-nourished. Patient is nontoxic and well- hydrated and is in no distress. HENT: Normocephalic, Atraumatic. EYES: PERRL, EOMI PULMONARY: Unlabored respirations. No audible rales rhonchi or wheezing was noted. CARDIOVASCULAR: There is a regular rate and rhythm without any murmurs gallops or rubs. ABDOMEN: Soft and nontender with normal bowel sounds. SKIN: Skin is clear with no lesions or rashes and otherwise unremarkable. : Deferred NEUROLOGIC: Patient is alert and oriented x3. Moving all extremities spontaneously MUSCULOSKELETAL: Normal extremities with adequate strength and full range of motion. No lower extremity swelling or edema. No calf tenderness. PSYCHIATRIC: Normal psychiatric evaluation Limitations: no limitations Course Vital Signs 02/14/19 02/14/19 02/14/19 01:21 01:31 01:54 Temperature 98.1 F Pulse Rate 71 67 Pulse Rate [ 65 [employer] ] Respiratory 18 12 Rate Blood Pressure 160/91 O2 Sat by Pulse 99 92 L Oximetry 02/14/19 02/14/19 02/14/19 02:00 03:00 04:00 Temperature Pulse Rate 61 61 67 Pulse Rate [ [employer] ] Respiratory 20 22 18 Rate Blood Pressure 158/106 167/91 164/93 O2 Sat by Pulse 96 96 95 Oximetry Chest Pain MDM - MDM Patient high risk for cardiac chest pain HEART score 5 Labs ordered - no acute findings CXR unremarkable Given that the patient is high risk for cardiac etiology of chest pain, I recommend he be admitted for further evaluation. Patient agreeable. Patient care discussed with Dr. Hall who agrees with plan, cardiology consulted. Disposition Clinical Impression: Chest pain Disposition: ADMITTED IP TO THIS HOSP Condition: Stable
[2019-02-14 02:04] LABS: Basophils # (A) 0.1 k/uL (0-0.2); Basophils % (A) 1 %; Eosinophils # (A) 0.5 k/uL (0-0.7); Eosinophils % (A) 6 %; HCT 43.4 % (39.0-53.0); HGB 14.5 gm/dL (13.0-17.5); Lymphocytes # (A) 2.3 k/uL (1.0-4.8); Lymphocytes % (A) 25 %; MCH 30.5 pg (25.0-35.0); MCHC 33.5 g/dL (31.0-37.0); MCV 91.1 fL (80.0-100.0); Mean Platelet Volume 6.5; Monocytes # (A) 0.6 k/uL (0-1.0); Monocytes % (A) 7 %; Neutrophils # (A) 5.4 k/uL (1.3-7.7); Neutrophils % (A) 58 %; Platelet Count 224 k/uL (150-450); RBC 4.77 m/uL (4.30-5.90); RDW 13.5 % (11.5-15.5); WBC 9.3 k/uL (3.8-10.6)
[2019-02-14 02:07] LABS: INR 0.9 (<1.2); Partial Thromboplastin Time 23.8 sec (22.0-30.0); Prothrombin Time 9.5 sec (9.0-12.0)
[2019-02-14 02:17] LABS: Albumin 4.2 g/dL (3.5-5.0); Calcium 9.3 mg/dL (8.4-10.2); Potassium 4.1 mmol/L (3.5-5.1); Total Bilirubin 0.3 mg/dL (0.2-1.3); Total Protein 6.8 g/dL (6.3-8.2)
[2019-02-14] MEDS ORDERED: NITROGLYCERIN SL TABS 0.4 MG TAB SUBLINGUAL STA (02:44)
[2019-02-14] MEDS ORDERED: NITROGLYCERIN SL TABS 0.4 MG TAB SUBLINGUAL PRN (03:49)
[2019-02-14 07:40] VITALS: RESP 18
--- NOTE | 2019-02-14 08:11 | XR ---
EXAMINATION TYPE: XR chest 2V DATE OF EXAM: 02/14/2019 COMPARISON: Prior chest x-ray dated 07/20/2018 HISTORY: Chest pain TECHNIQUE: Frontal and lateral views of the chest are obtained. FINDINGS: There are overlying cardiac leads. Patient is rotated. Surgical clips are present in the ri ght upper quadrant. Increased AP diameter of the chest with relative flattening the hemidiaphragms as on prior may be indicative of underlying COPD. Mild midthoracic anterior wedge compression deformity is stable. There is no focal air space opacity, pleural effusion, or pneumothorax seen. The cardiac silhouette size is within normal limits. The osseous structures are intact. IMPRESSION: No acute cardiopulmonary process.
[2019-02-14] MEDS ORDERED: PANTOPRAZOLE 40 MG TABLET PO SCH ×2 (09:00→17:30)
[2019-02-14] MEDS ORDERED: METOPROLOL TARTRATE 12.5 MG TAB PO SCH (09:00)
[2019-02-14] MEDS ORDERED: CLOPIDOGREL 75 MG TAB PO SCH (09:00)
--- NOTE | 2019-02-14 09:56 | CONS ---
CONSULTATION CHIEF COMPLAINT: Chest pain. Benjy is an 83-year-old gentleman with history of coronary artery disease, status post prior angioplasty, dyslipidemia and hypertension and recent GI bleed, who presents to the hospital having had an episode of chest pain. He describes it as a sharp precordial pain, intermittent, mild intensity, unrelated to exertion with diaphoresis or shortness of breath. There was no radiation of pain to neck, arm or back. This gradually resolved on its own. The patient states that his chest discomfort is different from the usual chest pain that he gets when he has heart problems. EKG does not reveal ischemic changes. He has had 2 sets of troponins that have been negative. Hemoglobin is 14.5. The patient's chest pain is atypical and probably unrelated to underlying coronary artery disease, and I am not going to pursue any further workup at this time. PAST MEDICAL HISTORY: Significant for coronary artery disease, hypertension, dyslipidemia, and GI bleed. CURRENT MEDICATIONS: Current medications include Claritin 10 mg daily, Zocor 20 q. daily, omeprazole 40 q. daily, Lopressor, losartan 50 q. daily, Plavix 75 q. daily. ALLERGIES: Allergic to PENICILLIN and PREDNISONE. FAMILY HISTORY: Family history is negative for premature coronary artery disease. SOCIAL HISTORY: Social history is negative for current smoking, EtOH abuse, or drug abuse. REVIEW OF SYSTEMS: HEENT is unremarkable. CARDIAC: As described above. RESPIRATORY: As described above. GI: Negative. GENITOURINARY: Negative. ALLERGY/IMMUNOLOGY: Negative. SKIN: Negative. MUSCULOSKELETAL: Significant for arthritis. PSYCHOSOCIAL: Negative. ENDOCRINE: Negative. DERM: Negative. CONSTITUTIONAL: Negative. ONCOLOGICAL: Negative. Rest of the system review is not relevant. PHYSICAL EXAMINATION: On exam, comfortable at rest. Vital signs are stable. There is no jugular venous distention. Chest exam reveals good air entry bilaterally. Heart exam reveals first and second heart sounds. No gallop. No murmur. No rub. Abdomen is soft, nontender. Examination of extremities did not reveal any edema. Peripheral pulses are felt. PROP MAKER exam did not reveal focal neurological deficits. LABS: Labs have been reviewed. EKG is as described above. ASSESSMENT: 1. Precordial chest pain. 2. Coronary artery disease, status post prior angioplasty. 3. Hypertension. 4. Dyslipidemia. 5. History of gastrointestinal bleed. PLAN: Patient's chest pain is atypical probably noncardiac. We will ambulate the patient, see how he does. If he is feeling well, can be discharged home and keep the followup in the outpatient setting. MARK / BRANDON: [id number] /
[2019-02-14 11:47] VITALS: BP 146/71; PULSE 54; TEMP 96.6
--- NOTE | 2019-02-14 14:45 | P.HPIM ---
History of Present Illness H&P Date: 02/14/19 HISTORY AND PHYSICAL AND DISCHARGE SUMMARY: This is an 83-year-old male patient of Dr. Arce with a previous medical history significant for CAD post-PCI and stent placement last one was in June 2018, and 2 other one is back in 1999, peptic ulcer disease with duodenal ulcer, GERD, hypertension and hypertensive cardiovascular disease, hyperlipidemia, osteoarthritis, acute diverticulitis. Patient's most recent hospitalization was January 16 which time he presented with partial small bowel obstruction due to conservatively by Dr. Fernandez. Patient presents to [facility] emergency center this morning complaining of stabbing chest pain in the left side. This started around 11:30 last evening it is coming and going. The pain lasts for a couple seconds and then resolves and repeats itself every 1 minute. He also experiences shortness of breath. No diaphoresis or lightheadedness. Initial blood pressure 160/91, heart rate 71, pulse ox 99% on room air. Troponin has been negative on 2 draws. BUN 21 creatinine 1.41. CBC within normal limits. Patient has been seen by cardiology and acute coronary syndrome has been ruled out and patient is cleared for discharge by Dr. Pollock if he ambulates without difficulty. Chest pain has c ompletely resolved. Review of Systems Constitutional: Denies anorexia, Denies chills, Denies fatigue, Denies fever, Denies weakness Ears, nose, mouth and throat: Denies dysphagia, Denies nasal congestion, Denies nasal discharge, Denies vertigo Cardiovascular: Reports chest pain, Denies decreased exercise tolerance, Denies dyspnea on exertion, Denies edema, Denies leg edema, Denies lightheadedness, Denies shortness of breath, Denies syncope Respiratory: Denies congestion, Denies cough with sputum, Denies excessive sputum, Denies hemoptysis, Denies home oxygen, Denies wheezing Gastrointestinal: Denies abdominal pain, Denies diarrhea, Denies loss of appe tite, Denies nausea, Denies vomiting Genitourinary: Denies dysuria, Denies urinary hesitancy, Denies urinary retention Musculoskeletal: Denies frequent falls, Denies muscle weakness, Denies myalgias Integumentary: Denies pruritus, Denies rash, Denies wounds Neurological: Denies aphasia, Denies change in mentation, Denies confusion, Denies seizures, Denies vertigo, Denies weakness Psychiatric: Denies anxiety, Denies depression Endocrine: Denies fatigue, Denies weight change Past Medical History Past Medical History: Asthma, Coronary Artery Disease (CAD), Chest Pain / Angina, GERD/Reflux, GI Bleed, Hearing Disorder / Deafness, Hyperlipidemia, Hypertension, Liver Disease, Osteoarthritis (OA) Additional Past Medical History / Comment(s): Pt recently admitted to [facility] on 11/23/18 with upper GI bleed. 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 Divirticulitis History of Any Multi-Drug Resistant Organisms: None Reported Past Surgical History: Bowel Resection, Cholecystectomy, Heart Catheterization With Stent, Orthopedic Surgery Additional Past Surgical History / Comment(s): 06/2018 PCI with stent, 1999 PCI with 2 stents, laparotomy with lysis of adhesions, R rotator cuff repair, R knee arthroscopy, R upper chest lipoma removed, bilateral cataract removals/lens implants, EGD and colonoscopies with pre cancerous polypectomies-last colonoscopy in 2018 was normal per pt. Past Anesthesia/Blood Transfusion Reactions: Blood Transfusion Reaction Additional Past Anesthesia/Blood Transfusion Reaction / Comment(s): CONTRACTED HEP C FROM A BLOOD TRANSFUSION 35-40 YEARS AGO. Date of Last Stent Placement:: JUN 2018 Past Psychological History: No Psychological Hx Reported Additional Psychological History / Comment(s): Pt resides with his spouse. He is independent. He is an [employer] . Smoking Status: Former smoker Past Alcohol Use History: Rare Additional Past Alcohol Use History / Comment(s): Patient was a smoker from [id number]. He drinks a glass of wine on special occasions. No illicit drug use. Past Drug Use History: None Reported - Past Family History Mother Family Medical History: Cancer Additional Family Medical History / Comment(s): Other at age 80 from acute kidney injury following surgery. Patient had bladder suspension surgery and she developed to have possibly uterine cancer however she ended up with renal failure refused hemodialysis Father Family Medical History: Cancer, Deep Vein Thrombosis (DVT), Pulmonary Embolus Additional Family Medical History / Comment(s): LUNG CANCER. Father in his mid 60s due to blood clots with history of bladder cancer . The cause of pulmonary embolism. Brother(s) Family Medical History: Cancer, Coronary Artery Disease (CAD) Additional Family Medical History / Comment(s): Patient has one brother with history of non-Hodgkin's lymphoma diagnosed 15 YEARS AGO. He does not have any sisters. He has adult children with no major medical problem basically 2 sons and a daughter. Medications and Allergies Home Medications Medication Instructions Recorded Confirmed Type Simvastatin [Zocor] 20 mg PO HS 02/23/14 02/14/19 History Clopidogrel [Plavix] 75 mg PO DAILY 08/05/18 02/14/19 History Metoprolol Tartrate [Lopressor] 12.5 mg PO DAILY 11/23/18 02/14/19 History Losartan [Cozaar] 50 mg PO HS #0 11/25/18 02/14/19 Rx Loratadine [Claritin] 10 mg PO DAILY PRN 02/14/19 02/14/19 History Omeprazole 40 mg PO DAILY 02/14/19 02/14/19 History Triamcinolone Acetonide [Nasacort] 1 spray EA NOSTRIL DAILY PRN 02/14/19 02/14/19 History Allergies Allergy/AdvReac Type Severity Reaction Status Date / Time Penicillins Allergy Rash/Hives Verified 02/14/19 07:41 prednisone Allergy Rash/Hives Verified 02/14/19 07:41 Physical Exam Vitals: Vital Signs Temp Pulse Pulse Resp BP Pulse Ox 02/14/19 07:38 18 02/14/19 07:00 98.4 F 52 L 17 129/67 96 02/14/19 06:00 55 L 17 152/83 97 02/14/19 05:00 63 19 150/87 97 02/14/19 04:00 67 18 164/93 95 02/14/19 03:00 61 22 167/91 96 02/14/19 02:00 61 20 158/106 96 02/14/19 01:54 65 02/14/19 01:31 67 12 92 L 02/14/19 01:21 98.1 F 71 18 160/91 99 Intake and Output 02/13/19 02/14/19 02/14/19 22:59 06:59 14:59 Other: Weight 72.575 kg - Constitutional General appearance: average body habitus, no acute distress - EENT Eyes: anicteric sclerae, EOMI, PERRLA, no ptosis, no scleral icterus, normal appearance ENT: hearing grossly normal, NA/AT, normal oropharynx, no thrush Ears: bilateral: normal - Neck Neck: no lymphadenopathy, normal ROM, no rigidity, no stridor, no thyromegaly Carotids: bilateral: upstroke normal Thyroid: bilateral: normal size - Respiratory Respiratory: bilateral: diminished, negative: dullness, rales, rhonchi, wheezing, prolonged expiration, prolonged inspiration - Cardiovascular Rhythm: regular Heart sounds: normal: S1, S2 Abnormal Heart Sounds: systolic murmur, no S3 Gallop, no S4 Gallop - Gastrointestinal General gastrointestinal: distended, hyperactive bowel sounds, soft, no splenomegaly, tenderness, umbilical hernia, ventral hernia - Integumentary Integumentary: normal, normal turgor - Musculoskeletal Musculoskeletal: gait normal, strength equal bilaterally - Psychiatric Psychiatric: A&O x's 3, appropriate affect, intact judgment & insight Results CBC & Chem 7: 02/14/19 01:45 02/14/19 01:45 Labs: Abnormal Lab Results - Last 24 Hours (Table) 02/14/19 Range/Units 01:45 BUN 21 H (9-20) mg/dL Creatinine 1.41 H (0.66-1.25) mg/dL Glucose 104 H (74-99) mg/dL Thrombosis Risk Factor Assmnt - Choose All That Apply Any of the Below Risk Factors Present?: Yes Each Factor Represents 1 point: Acute SC Other Risk Factors: Yes Each Risk Factor Represents 3 Points: Age 75 years or older Other congenital or acquired thrombophilia - If yes, enter type in comment: No Thrombosis Risk Factor Assessment Total Risk Factor Score: 4 Thrombosis Risk Factor Assessment Level: Moderate Risk Assessment and Plan Plan: 1. Chest pain. Acute coronary syndrome ruled out. Cardiology consult appreciated. No change in medications. 2. Recent partial small bowel obstruction, resolved with conservative management. No symptoms at this time. 3. CAD post-PCI and stent placement last one with the June 2018. 3. Hypertension and hypertensive perivascular disease. 4. Hyperlipidemia. 5. GERD/PUD. 6. History of diverticulitis. 7. Osteoarthritis. Patient placed as an observation status. Discharge plan: Home Discharge Medication List Simvastatin [Zocor] 20 mg PO HS 02/23/14 [History] Clopidogrel [Plavix] 75 mg PO DAILY 08/05/18 [History] Metoprolol Tartrate [Lopressor] 12.5 mg PO DAILY 11/23/18 [History] Losartan [Cozaar] 50 mg PO HS #0 11/25/18 [Rx] Loratadine [Claritin] 10 mg PO DAILY PRN 02/14/19 [History] Omeprazole 40 mg PO DAILY 02/14/19 [History] Triamcinolone Acetonide [Nasacort] 1 spray EA NOSTRIL DAILY PRN 02/14/19 [History] Impression and plan of care have been directed as dictated by the signing physician. Susi Cardona nurse practitioner acting as scribe for signing physician.
[2019-02-14] MEDS ORDERED: ATORVASTATIN 10 MG TAB PO SCH (21:00)
[2019-02-14] MEDS ORDERED: LOSARTAN 50 MG TAB PO SCH (21:00)
[2019-02-15] MEDS ORDERED: NON-FORMULARY DRUG (Omeprazole [Omeprazole] 40 MG) PO SCH (09:00)
[2019-02-15] MEDS ORDERED: ASPIRIN 325 MG TAB PO SCH (09:00)
[2019-02-15] MEDS ORDERED: CLOPIDOGREL 75 MG TAB PO SCH (09:00)
== END 2019-02-14 13:40 | disposition home or self-care (01) ==
LOC: EC 01:20 → 1SOBS 03:54 → 3SCARD 06:22
PROVIDERS: ADMIT Internal Medicine; ATTEND Internal Medicine
DX: R07.89 Other chest pain (principal); I25.10 Atherosclerotic heart disease of native coronary artery without angina pectoris; M19.90 Unspecified osteoarthritis, unspecified site; K59.00 Constipation, unspecified; I38 Endocarditis, valve unspecified; K27.9 Peptic ulcer, site unspecified, unspecified as acute or chronic, without hemorrhage or perforation; K66.0 Peritoneal adhesions (postprocedural) (postinfection); K21.9 Gastro-esophageal reflux disease without esophagitis; J45.909 Unspecified asthma, uncomplicated; H91.90 Unspecified hearing loss, unspecified ear; E78.5 Hyperlipidemia, unspecified; K44.9 Diaphragmatic hernia without obstruction or gangrene; M10.9 Gout, unspecified; B19.20 Unspecified viral hepatitis C without hepatic coma; I11.9 Hypertensive heart disease without heart failure; Z79.02 Long term (current) use of antithrombotics/antiplatelets; Z79.899 Other long term (current) drug therapy; Z88.0 Allergy status to penicillin; Z88.8 Allergy status to other drugs, medicaments and biological substances; Z95.5 Presence of coronary angioplasty implant and graft; Z87.19 Personal history of other diseases of the digestive system; Z87.891 Personal history of nicotine dependence; Z87.11 Personal history of peptic ulcer disease; Z86.19 Personal history of other infectious and parasitic diseases; Z86.010 Personal history of colon polyps; Z90.49 Acquired absence of other specified parts of digestive tract; Z98.42 Cataract extraction status, left eye; Z98.41 Cataract extraction status, right eye; Z96.1 Presence of intraocular lens; Z84.1 Family history of disorders of kidney and ureter; Z80.1 Family history of malignant neoplasm of trachea, bronchus and lung; Z82.49 Family history of ischemic heart disease and other diseases of the circulatory system; Z80.52 Family history of malignant neoplasm of bladder; Z80.7 Family history of other malignant neoplasms of lymphoid, hematopoietic and related tissues
CPT/HCPCS: 99285; 36415; 93005; 93306; 83880; 80053; 83735; 84484; 85025; 85610; 85730; 71046; G0378

== ENCOUNTER 2019-02-27 09:57 | Inpatient (IN) | payer MEDICARE ==
[2019-02-27] MEDS ORDERED: SODIUM CHLORIDE 0.9% 1,000 ML IV STA (10:17)
[2019-02-27 10:41] LABS: Albumin 4.9 g/dL (3.5-5.0); Calcium 9.9 mg/dL (8.4-10.2); Potassium 4.7 mmol/L (3.5-5.1); Total Bilirubin 0.8 mg/dL (0.2-1.3); Total Protein 8.2 g/dL (6.3-8.2)
[2019-02-27 10:48] LABS: INR 0.9 (<1.2); Partial Thromboplastin Time 23.6 sec (22.0-30.0); Prothrombin Time 9.6 sec (9.0-12.0)
[2019-02-27] MEDS ORDERED: MORPHINE SULFATE 4 MG/ML SYRINGE IVP STA (10:55)
[2019-02-27] MEDS ORDERED: ONDANSETRON 4 MG/2 ML VIAL IVP STA (10:56)
--- NOTE | 2019-02-27 10:57 | ED ---
Abdominal Pain HPI - General Chief Complaint: Abdominal Pain Stated Complaint: bowel blockage Time Seen by Provider: 02/27/19 10:17 Source: patient, RN notes reviewed, old records reviewed Mode of arrival: wheelchair Limitations: no limitations - History of Present Illness Initial Comments: Patient is an 83-year-old male with history of extensive bowel obstructions presents today with concerns for another bowel obstruction. He started have some vomiting yesterday and reports these had some history of liquid stools over the past 12 hours. Patient states that this morning at 2 AM he woke up to vomit again. At that time Patient reportedly passed out on the bathroom floor hit his head on the toilet and today. Patient reportedly was unconsciousness for unknown amount of time proximally 1-2 minutes. When he awoke he reported that there was vomit on the floor. Patient reported no fevers or chills. His surgeon is Dr. berkowitz. He denies any chest pain. - Related Data Home Medications Medication Instructions Recorded Confirmed Simvastatin [Zocor] 20 mg PO HS 02/23/14 02/27/19 Clopidogrel [Plavix] 75 mg PO DAILY 08/05/18 02/27/19 Metoprolol Tartrate [Lopressor] 12.5 mg PO DAILY 11/23/18 02/27/19 Loratadine [Claritin] 10 mg PO DAILY PRN 02/14/19 02/27/19 Omeprazole 40 mg PO DAILY 02/14/19 02/27/19 Triamcinolone Acetonide [Nasacort] 1 spray EA NOSTRIL DAILY PRN 02/14/19 02/27/19 Previous Rx's Medication Instructions Recorded Losartan [Cozaar] 50 mg PO HS #0 11/25/18 Allergies Allergy/AdvReac Type Severity Reaction Status Date / Time Penicillins Allergy Rash/Hives Verified 02/27/19 11:02 prednisone Allergy Rash/Hives Verified 02/27/19 11:02 Review of Systems ROS Statement: Those systems with pertinent positive or pertinent negative responses have been documented in the HPI. ROS Other: All systems not noted in ROS Statement are negative. Past Medical History Past Medical History: Asthma, Coronary Artery Disease (CAD), Chest Pain / Angina, GERD/Reflux, GI Bleed, Hearing Disorder / Deafness, Hyperlipidemia, Hypertension, Liver Disease, Osteoarthritis (OA) Additional Past Medical History / Comment(s): Pt recently admitted to [facility] on 11/23/18 with upper GI bleed. 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 Divirticulitis History of Any Multi-Drug Resistant Organisms: None Reported Past Surgical History: Bowel Resection, Cholecystectomy, Heart Catheterization With Stent, Orthopedic Surgery Additional Past Surgical History / Comment(s): 06/2018 PCI with stent, 1999 PCI with 2 stents, laparotomy with lysis of adhesions, R rotator cuff repair, R knee arthroscopy, R upper chest lipoma removed, bilateral cataract removals/lens implants, EGD and colonoscopies with pre cancerous polypectomies-last colonoscopy in 2018 was normal per pt. Past Anesthesia/Blood Transfusion Reactions: Blood Transfusion Reaction Additional Past Anesthesia/Blood Transfusion Reaction / Comment(s): CONTRACTED HEP C FROM A BLOOD TRANSFUSION 35-40 YEARS AGO. Date of Last Stent Placement:: JUN 2018 Past Psychological History: No Psychological Hx Reported Smoking Status: Former smoker Past Alcohol Use History: Rare Past Drug Use History: None Reported - Past Family History Mother Family Medical History: Cancer Additional Family Medical History / Comment(s): Other at age 80 from acute kidney injury following surgery. Patient had bladder suspension surgery and she developed to have possibly uterine cancer however she ended up with renal fa ilure refused hemodialysis Father Family Medical History: Cancer, Deep Vein Thrombosis (DVT), Pulmonary Embolus Additional Family Medical History / Comment(s): LUNG CANCER. Father in his mid 60s due to blood clots with history of bladder cancer . The cause of pulmonary embolism. Brother(s) Family Medical History: Cancer, Coronary Artery Disease (CAD) Additional Family Medical History / Comment(s): Patient has one brother with history of non-Hodgkin's lymphoma diagnosed 15 YEARS AGO. He does not have any sisters. He has adult children with no major medical problem basically 2 sons and a daughter. General Exam - General Exam Comments Initial Comments: 83-year-old male. Alert and oriented. No distress. Limitations: no limitations General appearance: alert, in no apparent distress Head exam: Present: atraumatic, normocephalic, normal inspection, other (Patient has a contusion over the right parietal scalp.) Eye exam: Present: normal appearance, PERRL, EOMI. Absent: scleral icterus, conjunctival injection, periorbital swelling ENT exam: Present: normal exam, mucous membranes moist Neck exam: Present: normal inspection. Absent: tenderness, meningismus, lymphadenopathy Respiratory exam: Present: normal lung sounds bilaterally. Absent: respiratory distress, wheezes, rales, rhonchi, stridor Cardiovascular Exam: Present: regular rate, normal rhythm, normal heart sounds. Absent: systolic murmur, diastolic murmur, rubs, gallop, clicks GI/Abdominal exam: Present: soft, diminished bowel sounds. Absent: distended, tenderness, guarding, rebound, rigid, normal bowel sounds Extremities exam: Present: normal inspection, full ROM, normal capillary refill. Absent: tenderness, pedal edema, joint swelling, calf tenderness Back exam: Present: normal inspection Neurological exam: Present: alert, oriented X3, CN II-XII intact Psychiatric exam: Present: normal affect, normal mood Course Vital Signs 02/27/19 02/27/19 10:05 12:28 Temperature 98.0 F Pulse Rate 84 71 Respiratory 18 18 Rate Blood Pressure 121/79 151/82 O2 Sat by Pulse 98 95 Oximetry Medical Decision Making - Medical Decision Making This Patient is an 83-year-old male presents for his reference today with nausea and vomiting episodes, complains of some episodes of diarrhea. He states is what happens when he has a bowel obstruction. Patient's surgeon is Dr. berkowitz. He has no significant vomiting at this time. Patient's labs were reviewed and unremarkable. He also reports he had a syncopal episode when he was having a vomiting this morning. He states he hit his head. CT of the brain was negative for any acute cranial process. EKG shows no significant change and troponin was normal. Patient CT of the abdomen pelvis does show evidence of a developing small bowel obstruction. No signs of incarceration with the patient's hernia. I discussed this with Dr. Dugan who discussed case with Dr. Diaz. Patient will be admitted at this time. - Lab Data Result diagrams: 02/27/19 10:16 02/27/19 10:16 Lab Results 02/27/19 02/27/19 02/27/19 Range/Units 10:16 10:16 10:16 WBC 12.6 H (3.8-10.6) k/uL RBC 5.71 (4.30-5.90) m/uL Hgb 17.5 D (13.0-17.5) gm/dL Hct 52.4 (39.0-53.0) % MCV 91.7 (80.0-100.0) fL MCH 30.7 (25.0-35.0) pg MCHC 33.5 (31.0-37.0) g/dL RDW 15.7 H (11.5-15.5) % Plt Count 279 (150-450) k/uL Neutrophils % 73 % Lymphocytes % 16 % Monocytes % 7 % Eosinophils % 1 % Basophils % 0 % Neutrophils # 9.2 H (1.3-7.7) k/uL Lymphocytes # 2.0 (1.0-4.8) k/uL Monocytes # 0.9 (0-1.0) k/uL Eosinophils # 0.1 (0-0.7) k/uL Basophils # 0.1 (0-0.2) k/uL PT (9.0-12.0) sec INR (<1.2) APTT (22.0-30.0) sec Sodium 140 (137-145) mmol/L Potassium 4.7 (3.5-5.1) mmol/L Chloride 102 (98-107) mmol/L Carbon Dioxide 25 (22-30) mmol/L Anion Gap 13 mmol/L BUN 18 (9-20) mg/dL Creatinine 1.35 H (0.66-1.25) mg/dL Est GFR (CKD-EPI)AfAm 57 (>60 ml/min/1.73 sqM) Est GFR (CKD-EPI)NonAf 49 (>60 ml/min/1.73 sqM) Glucose 126 H (74-99) mg/dL Plasma Lactic Acid Luiz 1.5 (0.7-2.0) mmol/L Calcium 9.9 (8.4-10.2) mg/dL Total Bilirubin 0.8 (0.2-1.3) mg/dL AST 30 (17-59) U/L ALT 27 (21-72) U/L Alkaline Phosphatase 83 (38-126) U/L Troponin I (0.000-0.034) ng/mL Total Protein 8.2 (6.3-8.2) g/dL Albumin 4.9 (3.5-5.0) g/dL Amylase 60 (30-110) U/L Lipase 31 (23-300) U/L Urine Color Urine Appearance (Clear) Urine pH (5.0-8.0) Ur Specific [place] (1.001-1.035) Urine Protein (Negative) Urine Glucose (UA) (Negative) Urine Ketones (Negative) Urine Blood (Negative) Urine Nitrite (Negative) Urine Bilirubin (Negative) Urine Urobilinogen (<2.0) mg/dL Ur Leukocyte Esterase (Negative) Urine WBC (0-5) /hpf Urine Bacteria (None) /hpf Urine Mucus (None) /hpf 02/27/19 02/27/19 02/27/19 Range/Units 10:16 10:16 10:30 WBC (3.8-10.6) k/uL RBC (4.30-5.90) m/uL Hgb (13.0-17.5) gm/dL Hct (39.0-53.0) % MCV (80.0-100.0) fL MCH (25.0-35.0) pg MCHC (31.0-37.0) g/dL RDW (11.5-15.5) % Plt Count (150-450) k/uL Neutrophils % % Lymphocytes % % Monocytes % % Eosinophils % % Basophils % % Neutrophils # (1.3-7.7) k/uL Lymphocytes # (1.0-4.8) k/uL Monocytes # (0-1.0) k/uL Eosinophils # (0-0.7) k/uL Basophils # (0-0.2) k/uL PT 9.6 (9.0-12.0) sec INR 0.9 (<1.2) APTT 23.6 (22.0-30.0) sec Sodium (137-145) mmol/L Potassium (3.5-5.1) mmol/L Chloride (98-107) mmol/L Carbon Dioxide (22-30) mmol/L Anion Gap mmol/L BUN (9-20) mg/dL Creatinine (0.66-1.25) mg/dL Est GFR (CKD-EPI)AfAm (>60 ml/min/1.73 sqM) Est GFR (CKD-EPI)NonAf (>60 ml/min/1.73 sqM) Glucose (74-99) mg/dL Plasma Lactic Acid Luiz (0.7-2.0) mmol/L Calcium (8.4-10.2) mg/dL Total Bilirubin (0.2-1.3) mg/dL AST (17-59) U/L ALT (21-72) U/L Alkaline Phosphatase (38-126) U/L Troponin I <0.012 (0.000-0.034) ng/mL Total Protein (6.3-8.2) g/dL Albumin (3.5-5.0) g/dL Amylase (30-110) U/L Lipase (23-300) U/L Urine Color Yellow Urine Appearance Clear (Clear) Urine pH 5.5 (5.0-8.0) Ur Specific [place] 1.028 (1.001-1.035) Urine Protein 1+ H (Negative) Urine Glucose (UA) Negative (Negative) Urine Ketones Trace H (Negative) Urine Blood Negative (Negative) Urine Nitrite Negative (Negative) Urine Bilirubin Negative (Negative) Urine Urobilinogen <2.0 (<2.0) mg/dL Ur Leukocyte Esterase Negative (Negative) Urine WBC 1 (0-5) /hpf Urine Bacteria Rare H (None) /hpf Urine Mucus Many H (None) /hpf 02/27/19 10:56 EKG shows sinus rhythm with first-degree AV block. Left axis deviation.. Infarct age undetermined. Ventricular rate of 69 beats were minute. Also 220 ms. QRS ration a 60 ms. QT QTC 390/450 ms. - Radiology Data Radiology results: report reviewed Partial developing distal small bowel obstruction felt present with transition point presumed to be due to adhesion. Persist and bowel containing ventral hernia does not show transitioned to be the source of obstruction on current study. Cannot rule out transient underlying antritis correlating clinically. CT of the brain is negative for acute cranial hemorrhage or midline shift. Moderate diffuse age-related cerclage for chronic small vessel ischemic change redone straight. No significant interval change from 2014 CT. Disposition Clinical Impression: Small bowel obstruction, Syncope Disposition: ADMITTED IP TO THIS HOSP Condition: Stable Is patient prescribed a controlled substance at d/c from ED?: No Referrals: Clementine Arce MD [Primary Care Provider] - 1-2 days Time of Disposition: 13:05
[2019-02-27 10:59] LABS: Basophils # (A) 0.1 k/uL (0-0.2); Basophils % (A) 0 %; Eosinophils # (A) 0.1 k/uL (0-0.7); Eosinophils % (A) 1 %; HCT 52.4 % (39.0-53.0); Lymphocytes % (A) 16 %; MCH 30.7 pg (25.0-35.0); MCHC 33.5 g/dL (31.0-37.0); MCV 91.7 fL (80.0-100.0); Monocytes # (A) 0.9 k/uL (0-1.0); Monocytes % (A) 7 %; Neutrophils # (A) 9.2 k/uL (1.3-7.7); Neutrophils % (A) 73 %; Platelet Count 279 k/uL (150-450); RBC 5.71 m/uL (4.30-5.90); RDW 15.7 % (11.5-15.5); WBC 12.6 k/uL (3.8-10.6)
[2019-02-27 11:00] LABS: HGB 17.5 gm/dL (13.0-17.5)
[2019-02-27 11:28] LABS: Appearance,Urine Clear (Clear); Bacteria,Urine Rare /hpf; Bilirubin,Urine Negative (Negative); Blood,Urine Negative (Negative); Color,Urine Yellow; Glucose,Urine (UA) Negative (Negative); Ketones,Urine Trace (Negative); Leukocyte Esterase,Urine Negative (Negative); Mucus,Urine Many /hpf; Nitrite,Urine Negative (Negative); PH, Urine 5.5 (5.0-8.0); Protein,Urine 1+ (Negative); Specific Gravity,Urine 1.028 (1.001-1.035); Urobilinogen,Urine <2.0 mg/dL (<2.0); WBC,Urine 1 /hpf (0-5)
--- NOTE | 2019-02-27 11:45 | CT ---
EXAMINATION TYPE: CT brain wo con DATE OF EXAM: 02/27/2019 HISTORY: syncopal episode while defecating CT DLP: 1127.4 mGycm. Automated Exposure Control for Dose Reduction was Utilized. TECHNIQUE: CT scan of the head is performed without contrast. COMPARISON: CT brain August 10, 2013. FINDINGS: There is no acute intracranial hemorrhage or midline shift identified. There is diffuse v entricular and sulcal prominence consistent with diffuse age-related cerebral atrophy most prominent over bilateral frontal lobes. There is low-attenuation in the periventricular white matter consisten t with chronic small vessel ischemic change. The globes are intact and the visualized sinuses are cl ear. IMPRESSION: No acute intracranial hemorrhage or midline shift. There is mild to moderate diffuse ag e-related cerebral atrophy and chronic small vessel ischemic change redemonstrated. No significant in terval change from 2014 CT.
--- NOTE | 2019-02-27 11:52 | CT ---
EXAMINATION TYPE: CT abdomen pelvis w con DATE OF EXAM: 02/27/2019 COMPARISON: CT abdomen and pelvis 6 weeks ago. HISTORY: generalized abdominal pain, diarrhea, constipation, history of bowel obstructions CT DLP: 846.1 mGycm, Automated Exposure Control for Dose Reduction was Utilized. CONTRAST: CT scan of the abdomen and pelvis is performed without oral but with with IV Contrast, patient inject ed with 80 mL of Isovue 300. FINDINGS: LUNG BASES: No significant abnormality is appreciated. LIVER/GB: Cholecystectomy clips are redemonstrated . PANCREAS: No significant abnormality is seen. SPLEEN: No significant abnormality is seen. ADRENALS: No significant abnormality is seen. KIDNEYS: Symmetric cortical medullary uptake and excretion from both kidneys without hydronephrosis s een bilaterally. There is 1.5 cm simple appearing thin-walled cyst laterally mid pole level left kidn ey axial image 31 series 401 redemonstrated. BOWEL: Evaluation of bowel is suboptimal secondary to lack of enteric contrast. Fluid-filled stomach shows no suspicious dilatation. Duodenal sweep is not dilated. There are multiple prominent small bow el loops throughout the anterior mid abdomen with air-fluid levels with persistent anterior extension into the ventral wall hernia. There are areas of mild/moderate wall thickening in upper pelvic bowel loops just left of midline for reference coronal image 33. No greater than 3.0 cm abnormal dilatatio n. Scattered diverticula are seen throughout the colon without suspicious dilatation. Terminal ileum is nondistended. There is suspected abrupt caliber change anterior right mid to lower abdomen maximal 49 in the distal ileal loop. PROSTATE/SEMINAL VESICLES: No gross abnormality seen. LYMPH NODES: No greater than 1cm abdominal or pelvic lymph nodes are appreciated. OSSEOUS STRUCTURES: Blla-rb-ueetlcux multilevel disc space narrowing most prominent L3-L4 and L5-S1 l evels with multilevel vacuum disc phenomenon. Mild to moderate multilevel anterior and lateral spurri ng. Multilevel facet arthropathy lower lumbar spine. OTHER: Small fat-containing right greater than left inguinal hernias. IMPRESSION: Partial or developing distal small bowel obstruction felt present with suspected transiti on point identified presumed due to adhesions. Persistent bowel containing ventral wall hernia does n ot show transition to be source of obstruction on current study. Cannot rule out some underlying ente ritis, correlate clinically.
[2019-02-27] MEDS ORDERED: ACETAMINOPHEN TAB 325 MG TAB PO PRN (13:06)
[2019-02-27] MEDS ORDERED: MORPHINE SULFATE 4 MG/ML SYRINGE IV PRN (13:06)
[2019-02-27] MEDS ORDERED: IBUPROFEN 400 MG TAB PO PRN (13:06)
[2019-02-27] MEDS ORDERED: KETOROLAC 30 MG/ML 1 ML VIAL IVP PRN (13:06)
[2019-02-27] MEDS ORDERED: ONDANSETRON 4 MG/2 ML VIAL IVP PRN (13:06)
[2019-02-27] MEDS ORDERED: NALOXONE 0.4 MG/ML 1 ML VIAL IV PRN (13:06)
[2019-02-27] MEDS: SODIUM CHLORIDE 0.9% 1,000 ML IV SCH (13:17)
--- NOTE | 2019-02-27 14:24 | P.HPIM ---
History of Present Illness H&P Date: 02/27/19 83-year-old male patient of mine with the previous medical history of coronary artery disease status post-PCI and stent placement in 2001June 2018, peptic ulcer disease with duodenal ulcer history of GERD hypertension and hypertensive cardiovascular disease, hyperlipidemia osteoarthritis, history of hepatitis C in remission who was diagnosed with acute diverticulitis in November 2018, multiple admissions for partial small bowel obstruction last admission in December 2018, ventral hernia which is reducible which is supposedly to be repaired with Dr. berkowitz according to the patient, plan to undergo EGD and colonoscopy by the end of this month with Dr. berkowitz to rule out peptic ulcer disease. Patient comes in this time with increased nausea or vomiting and multiple episodes of diarrhea that started on Wednesday. According to the patient he had a good meal on Wednesday but started having diarrhea on Wednesday along with vomiting. Yesterday patient passed out for unknown amount of time after having a bowel movement and found himself covered with vomiting. He was helped by his and was brought to the room. Patient slept overnight and started having similar symptoms just morning and decided to come to the ER for evaluation. He did not have anything since yesterday morning. Patient denies any fever, chills, shortness of breath, any bloody bowel movement or melena. In the ER patient 796.6 pulse of 54 respiratory rate 18 blood pressure 146/71 labs suggestive of a leukocyte of 12.6, creatinine 1.35 increased from baseline of 1.13 CT abdomen and pelvis is done in the ER that suggestive lovings distal small bowel obstruction with transition point with the multiple air-fluid levels. Surgery consulted Review of Systems Constitutional: Denies chills, Denies fever, Denies lethargy, Denies malaise, Denies poor appetite, Denies weakness, Denies weight loss Eyes: denies decreased vision, denies diplopia, denies discharge, denies pain Ears: deny: decreased hearing Ears, nose, mouth and throat: Denies dental pain, Denies headache, Denies nasal discharge, Denies nose pain Cardiovascular: Denies chest pain, Denies decreased exercise tolerance, Denies edema, Denies high blood pressure, Denies irregular heart beat, Denies palpitations, Denies paroxysmal nocturnal dyspnea, Denies rapid heart beat, Denies shortness of breath Respiratory: Denies congestion, Denies cough, Denies cough with sputum, Denies dyspnea, Denies home oxygen, Denies wheezing Gastrointestinal: Endorses diffuse abdominal pain, endorses change in bowel habits, Denies coffee ground emesis, Denies early satiety, Denies excessive gas, Denies heartburn, Denies hematemesis, Denies hematochezia, Denies loss of appetite, endorses nausea, endorses vomiting Genitourinary: Denies dysuria, Denies flank pain, Denies kidney stones, Denies menorrhagia, Denies urgency, Denies urinary frequency Musculoskeletal: Denies gait dysfunction, Denies limitation of motion, Denies morning stiffness, Denies muscle cramps Integumentary: Denies rash, Denies wounds, Denies brittle nails, Denies change in hair/nails, Denies darkening of skin Neurological: Denies balance difficulties, Denies change in speech, Denies double vision, Denies gait dysfunction, Denies loss of vision, Denies motor disturbance, Denies numbness, Denies paralysis, Denies paresthesias, Denies seizures Psychiatric: Denies anxiety, Denies depression Endocrine: Denies excessive sweating, Denies excessive thirst, Denies high blood sugars, Denies palpitations Hematologic/Lymphatic: Denies easy bruising, Denies lymphadenopathy Past Medical History Past Medical History: Asthma, Coronary Artery Disease (CAD), Chest Pain / Ang justice, GERD/Reflux, GI Bleed, Hearing Disorder / Deafness, Hyperlipidemia, Hypertension, Liver Disease, Osteoarthritis (OA) Additional Past Medical History / Comment(s): Pt recently admitted to [facility] on 11/23/18 with upper GI bleed. 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 Divirticulitis History of Any Multi-Drug Resistant Organisms: None Reported Past Surgical History: Bowel Resection, Cholecystectomy, Heart Catheterization With Stent, Orthopedic Surgery Additional Past Surgical History / Comment(s): 06/2018 PCI with stent, 2000 PCI with 2 stents, laparotomy with lysis of adhesions, R rotator cuff repair, R knee arthroscopy, R upper chest lipoma removed, bilateral cataract removals/lens implants, EGD and colonoscopies with pre cancerous polypectomies-last colonoscopy in 2017 was normal per pt. Past Anesthesia/Blood Transfusion Reactions: Blood Transfusion Reaction Additional Past Anesthesia/Blood Transfusion Reaction / Comment(s): CONTRACTED HEP C FROM A BLOOD TRANSFUSION 35-40 YEARS AGO. Date of Last Stent Placement:: JUN 2018 Past Psychological History: No Psychological Hx Reported Smoking Status: Former smoker Past Alcohol Use History: Rare Past Drug Use History: None Reported - Past Family History Mother Family Medical History: Cancer Additional Family Medical History / Comment(s): Other at age 80 from acute kidney injury following surgery. Patient had bladder suspension surgery and she developed to have possibly uterine cancer however she ended up with renal failure refused hemodialysis Father Family Medical History: Cancer, Deep Vein Thrombosis (DVT), Pulmonary Embolus Additional Family Medical History / Comment(s): LUNG CANCER. Father in his mid 60s due to blood clots with history of bladder cancer . The cause of pulmonary embolism. Brother(s) Family Medical History: Cancer, Coronary Artery Disease (CAD) Additional Family Medical History / Comment(s): Patient has one brother with history of non-Hodgkin's lymphoma diagnosed 15 YEARS AGO. He does not have any sisters. He has adult children with no major medical problem basically 2 sons and a daughter. Medications and Allergies Home Medications Medication Instructions Recorded Confirmed Type Simvastatin [Zocor] 20 mg PO HS 02/23/14 02/27/19 History Clopidogrel [Plavix] 75 mg PO DAILY 08/05/18 02/27/19 History Metoprolol Tartrate [Lopressor] 12.5 mg PO DAILY 11/23/18 02/27/19 History Losartan [Cozaar] 50 mg PO HS #0 11/25/18 02/27/19 Rx Loratadine [Claritin] 10 mg PO DAILY PRN 02/14/19 02/27/19 History Omeprazole 40 mg PO DAILY 02/14/19 02/27/19 History Triamcinolone Acetonide [Nasacort] 1 spray EA NOSTRIL DAILY PRN 02/14/19 02/27/19 History Allergies Allergy/AdvReac Type Severity Reaction Status Date / Time Penicillins Allergy Rash/Hives Verified 02/27/19 11:02 prednisone Allergy Rash/Hives Verified 02/27/19 11:02 Physical Exam Vitals: Vital Signs Temp Pulse Resp BP Pulse Ox 02/27/19 13:28 67 18 143/85 95 02/27/19 12:28 71 18 151/82 95 02/27/19 10:05 98.0 F 84 18 121/79 98 Intake and Output 02/26/19 02/27/19 02/27/19 22:59 06:59 14:59 Other: Weight 72.575 kg - Constitutional General appearance: cooperative, no acute distress, obese - EENT Eyes: anicteric sclerae, PERRLA, normal appearance ENT: hearing grossly normal - Neck Neck: no lymphadenopathy, normal ROM, no other, no rigidity, no stridor, no thyromegaly - Respiratory Respiratory: bilateral: CTA, negative: diminished, dullness, rales, rhonchi - Cardiovascular Rhythm: regular Heart sounds: normal: S1, S2 Abnormal Heart Sounds: no systolic murmur, no diastolic murmur, no rub, no S3 Gallop, no S4 Gallop, no click, no other - Gastrointestinal General gastrointestinal: normal bowel sounds, soft tender diffusely - Integumentary Integumentary: no rash - Neurologic Neurologic: CNII-XII intact - Musculoskeletal Musculoskeletal: gait normal, strength equal bilaterally tender outer quadrant of the thigh right lower extremity - Psychiatric Psychiatric: A&O x's 3, appropriate affect Results CBC & Chem 7: 02/27/19 10:16 02/27/19 10:16 Labs: Abnormal Lab Results - Last 24 Hours (Table) 02/27/19 02/27/19 02/27/19 Range/Units 10:16 10:16 10:30 WBC 12.6 H (3.8-10.6) k/uL RDW 15.7 H (11.5-15.5) % Neutrophils # 9.2 H (1.3-7.7) k/uL Creatinine 1.35 H (0.66-1.25) mg/dL Glucose 126 H (74-99) mg/dL Urine Protein 1+ H (Negative) Urine Ketones Trace H (Negative) Urine Bacteria Rare H (None) /hpf Urine Mucus Many H (None) /hpf Thrombosis Risk Factor Assmnt - DVT/VTE Prophylaxis DVT/VTE Prophylaxis: Pharmacologic Prophylaxis ordered Assessment and Plan Plan: 1. Partial small bowel obstruction. Keep patient nothing by mouth. NG tube not placed yet and does seen by surgery. Patient does well without NG tube usually managed conservatively. Normal saline to be continued at 75 per hour continue morphine sulfate 4 mg IV push every 4 hours, continue Zofran 4 mg IV push every 6 hours as needed, increase ambulation. 2. CAD post-PCI and stent placement last one with the June 2018. Continue metoprolol 12.5 mg orally once every day, simvastatin 20 mg orally once every day, hold Plavix for the next 24 hours and resume tomorrow morning. 3. Hypertension and hypertensive perivascular disease. Continue Lopressor 12.5 mg orally once every day, Cozaar 50 milligrams orally once every day. 4. Hyperlipidemia. Continue simvastatin 20 mg orally once every day. 5. GERD/PUD. Continue PPI. 6. History of diverticulitis. Plan for EGD and colonoscopy in the end of the month 7. Osteoarthritis. Stable. 8. DVT prophylaxis. Continue with Lovenox 40 mg subcutaneously every 24 hours. 9. GI prophylaxis. Continue patient on PPI.
[2019-02-27] MEDS ORDERED: FLUTICASONE 50MCG/SPRAY NASAL 16GM EA NOSTRIL PRN (14:25)
[2019-02-27] MEDS ORDERED: LORATADINE 10 MG TAB PO PRN (14:25)
[2019-02-27] MEDS ORDERED: MORPHINE SULFATE 2 MG/ML SYRINGE IV PRN (14:26)
--- NOTE | 2019-02-27 16:51 | P.GSCN ---
History of Present Illness Consult date: 02/27/19 History of present illness: This patient who is well known to my service. He has had multiple partial small bowel structures in the past which usually resolve on their own. He does have a past surgical history significant for bleeding ulcer. He also has a cardiac history and has been on Plavix and aspirin in the past. Patient states that at home he was having abdominal pain followed by watery diarrhea. He says he passed out well on the toilet and awoke with vomit. He states he's had several episodes of watery diarrhea since then. He is now feeling much better. He denies any nausea. He denies any abdominal pain at this time. He has no history of Crohn's he has no family history of Crohn's disease. Computed tomography scan did show some dilated and thickened small bowel loops possibly consistent with enteritis versus partial small bowel obstruction. No definite transition point. He denies any blood in his stool or blood in his vomit. He denies any sick contacts he hasn't had any recent travel. Past Medical History Past Medical History: Asthma, Coronary Artery Disease (CAD), Chest Pain / Angina, GERD/Reflux, GI Bleed, Hearing Disorder / Deafness, Hyperlipidemia, Hypertension, Liver Disease, Osteoarthritis (OA) Additional Past Medical History / Comment(s): Pt recently admitted to [facility] on 11/23/18 with upper GI bleed. 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 Divirticulitis History of Any Multi-Drug Resistant Organisms: None Reported Past Surgical History: Bowel Resection, Cholecystectomy, Heart Catheterization With Stent, Orthopedic Surgery Additional Past Surgical History / Comment(s): 06/2018 PCI with stent, 1999 PCI with 2 stents, laparotomy with lysis of adhesions, R rotator cuff repair, R knee arthroscopy, R upper chest lipoma removed, bilateral cataract removals/lens imp lants, EGD and colonoscopies with pre cancerous polypectomies-last colonoscopy in 2018 was normal per pt. Past Anesthesia/Blood Transfusion Reactions: Blood Transfusion Reaction Additional Past Anesthesia/Blood Transfusion Reaction / Comm: CONTRACTED HEP C FROM A BLOOD TRANSFUSION 35-40 YEARS AGO. Date of Last Stent Placement:: JUN 2018 Past Psychological History: No Psychological Hx Reported Smoking Status: Former smoker Past Alcohol Use History: Rare Past Drug Use History: None Reported - Past Family History Mother Family Medical History: Cancer Additional Family Medical History / Comment(s): Other at age 80 from acute kidney injury following surgery. Patient had bladder suspension surgery and she developed to have possibly uterine cancer however she ended up with renal failure refused hemodialysis Father Family Medical History: Cancer, Deep Vein Thrombosis (DVT), Pulmonary Embolus Additional Family Medical History / Comment(s): LUNG CANCER. Father in his mid 60s due to blood clots with history of bladder cancer . The cause of pulmonary embolism. Brother(s) Family Medical History: Cancer, Coronary Artery Disease (CAD) Additional Family Medical History / Comment(s): Patient has one brother with history of non-Hodgkin's lymphoma diagnosed 15 YEARS AGO. He does not have any sisters. He has adult children with no major medical problem basically 2 sons and a daughter. Medications and Allergies Home Medications Medication Instructions Recorded Confirmed Type Simvastatin [Zocor] 20 mg PO HS 02/23/14 02/27/19 History Clopidogrel [Plavix] 75 mg PO DAILY 08/05/18 02/27/19 History Metoprolol Tartrate [Lopressor] 12.5 mg PO DAILY 11/23/18 02/27/19 History Losartan [Cozaar] 50 mg PO HS #0 11/25/18 02/27/19 Rx Loratadine [Claritin] 10 mg PO DAILY PRN 02/14/19 02/27/19 History Omeprazole 40 mg PO DAILY 02/14/19 02/27/19 History Triamcinolone Acetonide [Nasacort] 1 spray EA NOSTRIL DAILY PRN 02/14/19 02/27/19 History Allergies Allergy/AdvReac Type Severity Reaction Status Date / Time Penicillins Allergy Rash/Hives Verified 02/27/19 11:02 prednisone Allergy Rash/Hives Verified 02/27/19 11:02 Surgical - Exam Osteopathic Statement: *. No significant issues noted on an osteopathic structural exam other than those noted in the History and Physical/Consult. Vital Signs Temp Pulse Resp BP Pulse Ox 98.0 F 84 18 121/79 98 02/27/19 10:05 02/27/19 10:05 02/27/19 10:05 02/27/19 10:05 02/27/19 10:05 - General well developed, well nourished, no distress - Neck no masses, trachea midline - Respiratory normal expansion, normal respiratory effort - Cardiovascular Rhythm: regular - Abdomen reducible ventral hernia Abdomen: soft, non tender - Neurologic normal coordination, normal sensation - Psychiatric oriented to time, oriented to person, oriented to place Results - Labs 02/27/19 10:16 02/27/19 10:16 Abnormal Lab Results - Last 24 Hours (Table) 02/27/19 02/27/19 02/27/19 Range/Units 10:16 10:16 10:30 WBC 12.6 H (3.8-10.6) k/uL RDW 15.7 H (11.5-15.5) % Neutrophils # 9.2 H (1.3-7.7) k/uL Creatinine 1.35 H (0.66-1.25) mg/dL Glucose 126 H (74-99) mg/dL Urine Protein 1+ H (Negative) Urine Ketones Trace H (Negative) Urine Bacteria Rare H (None) /hpf Urine Mucus Many H (None) /hpf Diabetes panel 02/27/19 Range/Units 10:16 Sodium 140 (137-145) mmol/L Potassium 4.7 (3.5-5.1) mmol/L Chloride 102 (98-107) mmol/L Carbon Dioxide 25 (22-30) mmol/L BUN 18 (9-20) mg/dL Creatinine 1.35 H (0.66-1.25) mg/dL Glucose 126 H (74-99) mg/dL Calcium 9.9 (8.4-10.2) mg/dL AST 30 (17-59) U/L ALT 27 (21-72) U/L Alkaline Phosphatase 83 (38-126) U/L Total Protein 8.2 (6.3-8.2) g/dL Albumin 4.9 (3.5-5.0) g/dL Calcium panel 02/27/19 Range/Units 10:16 Calcium 9.9 (8.4-10.2) mg/dL Albumin 4.9 (3.5-5.0) g/dL Pituitary panel 02/27/19 Range/Units 10:16 Sodium 140 (137-145) mmol/L Potassium 4.7 (3.5-5.1) mmol/L Chloride 102 (98-107) mmol/L Carbon Dioxide 25 (22-30) mmol/L BUN 18 (9-20) mg/dL Creatinine 1.35 H (0.66-1.25) mg/dL Glucose 126 H (74-99) mg/dL Calcium 9.9 (8.4-10.2) mg/dL Adrenal panel 02/27/19 Range/Units 10:16 Sodium 140 (137-145) mmol/L Potassium 4.7 (3.5-5.1) mmol/L Chloride 102 (98-107) mmol/L Carbon Dioxide 25 (22-30) mmol/L BUN 18 (9-20) mg/dL Creatinine 1.35 H (0.66-1.25) mg/dL Glucose 126 H (74-99) mg/dL Calcium 9.9 (8.4-10.2) mg/dL Total Bilirubin 0.8 (0.2-1.3) mg/dL AST 30 (17-59) U/L ALT 27 (21-72) U/L Alkaline Phosphatase 83 (38-126) U/L Total Protein 8.2 (6.3-8.2) g/dL Albumin 4.9 (3.5-5.0) g/dL Assessment and Plan Assessment: Abdominal pain partial small bowel obstruction versus enteritis Plan: Patient is feeling better at this time. Continue IV fluids and nothing by mouth if he still feeling well in the morning he may start a trial on clear liquids. Continue antiemetics and an control until then as needed. No plans for acute surgical intervention. 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 This can be done as an outpatient.
[2019-02-27] MEDS: LOSARTAN 50 MG TAB PO SCH (19:43)
[2019-02-27] MEDS: ATORVASTATIN 10 MG TAB PO SCH (19:43)
[2019-02-28] MEDS: SODIUM CHLORIDE 0.9% 1,000 ML IV SCH ×2 (02:35→16:54)
[2019-02-28] MEDS ORDERED: NON-FORMULARY DRUG (Omeprazole [Omeprazole] 40 MG) PO SCH (09:00)
[2019-02-28] MEDS ORDERED: PANTOPRAZOLE 40 MG/10 ML VIAL IV SCH (09:00)
[2019-02-28] MEDS: METOPROLOL TARTRATE 12.5 MG TAB PO SCH (09:05)
--- NOTE | 2019-02-28 11:28 | P.PN ---
Subjective Progress Note Date: 02/28/19 Patient passing flatus. denies pain denies NV tolerating clears today Objective - Vital Signs Vital signs: Vital Signs Temp 98.0 F 02/28/19 04:48 Pulse 55 L 02/28/19 04:48 Resp 18 02/28/19 04:48 BP 114/67 02/28/19 04:48 Pulse Ox 95 02/28/19 04:48 Intake & Output 02/27/19 02/28/19 02/28/19 18:59 06:59 18:59 Intake Total 150 900 Output Total 560 Balance 150 340 Weight 72.575 kg Intake: Intake, IV Titration 150 900 Amount Sodium Chloride 0.9% 1, 150 900 000 ml @ 75 mls/hr IV . [id number] [facility] Rx#:[id number] Output: Urine 560 Other: Voiding Method Toilet Toilet Toilet # Voids 2 - Constitutional General appearance: Present: cooperative - Respiratory Details: nonlaborec - Cardiovascular Rhythm: regular - Gastrointestinal Gastrointestinal Comment(s): soft/NT/ND - Labs CBC & Chem 7: 02/27/19 10:16 02/27/19 10:16 Labs: Abnormal Lab Results - Last 24 Hours (Table) 02/27/19 Range/Units 10:30 Urine Protein 1+ H (Negative) Urine Ketones Trace H (Negative) Urine Bacteria Rare H (None) /hpf Urine Mucus Many H (None) /hpf Assessment and Plan Assessment: Abdominal pain partial small bowel obstruction versus enteritis Plan: Tolerating clears, if he continues to improved he may trial fulls and advance to soft. No plans for surgical intervention
--- NOTE | 2019-02-28 15:39 | P.PN ---
Subjective Progress Note Date: 02/28/19 83-year-old male patient of mine with the previous medical history of coronary artery disease status post-PCI and stent placement in 2001June 2018, peptic ulcer disease with duodenal ulcer history of GERD hypertension and hypertensive cardiovascular disease, hyperlipidemia osteoarthritis, history of hepatitis C in remission who was diagnosed with acute diverticulitis in November 2018, multiple admissions for partial small bowel obstruction last admission in December 2018, ventral hernia which is reducible which is supposedly to be repaired with Dr. berkowitz according to the patient, plan to undergo EGD and colonoscopy by the end of this month with Dr. berkowitz to rule out peptic ulcer disease. Patient comes in this time with increased nausea or vomiting and multiple episodes of diarrhea that started on Wednesday. According to the patient he had a good meal on Wednesday but started having diarrhea on Wednesday along with vomiting. Yesterday patient passed out for unknown amount of time after having a bowel movement and found himself covered with vomiting. He was helped by his and was brought to the room. Patient slept overnight and started having similar symptoms just morning and decided to come to the ER for evaluation. He did not have anything since yesterday morning. Patient denies any fever, chills, shortness of breath, any bloody bowel movement or melena. In the ER patient 796.6 pulse of 54 respiratory rate 18 blood pressure 146/71 labs suggestive of a leukocyte of 12.6, creatinine 1.35 increased from baseline of 1.13 CT abdomen and pelvis is done in the ER that suggestive lovings distal small bowel obstruction with transition point with the multiple air-fluid levels. Surgery consulted 02/28 patient doing well today. Diarrhea and nausea and vomiting has improved. Patient edition clear liquid diet today. Start patient on Reglan today watch for any akathysia or dyskinesia Objective - Vital Signs Vital signs: Vital Signs Temp 97.9 F 02/28/19 14:22 Pulse 60 02/28/19 14:22 Resp 18 02/28/19 14:22 BP 146/86 02/28/19 14:22 Pulse Ox 95 02/28/19 14:22 Intake & Output 02/27/19 02/28/19 02/28/19 18:59 06:59 18:59 Intake Total 150 900 580 Output Total 560 Balance 150 340 580 Weight 72.575 kg Intake: Intake, IV Titration 150 900 Amount Sodium Chloride 0.9% 1, 150 900 000 ml @ 75 mls/hr IV . [id number] [facility] Rx#:[id number] Oral 580 Output: Urine 560 Other: Voiding Method Toilet Toilet Toilet # Voids 2 1 - Exam - Constitutional General appearance: cooperative, no acute distress, obese - EENT Eyes: anicteric sclerae, PERRLA, normal appearance ENT: hearing grossly normal - Neck Neck: no lymphadenopathy, normal ROM, no other, no rigidity, no stridor, no thyromegaly - Respiratory Respiratory: bilateral: CTA, negative: diminished, dullness, rales, rhonchi - Cardiovascular Rhythm: regular Heart sounds: normal: S1, S2 Abnormal Heart Sounds: no systolic murmur, no diastolic murmur, no rub, no S3 Gallop, no S4 Gallop, no click, no other - Gastrointestinal General gastrointestinal: normal bowel sounds, soft - Integumentary Integumentary: no rash - Neurologic Neurologic: CNII-XII intact - Musculoskeletal Musculoskeletal: gait normal, strength equal bilaterally - Psychiatric Psychiatric: A&O x's 3, appropriate affect - Labs CBC & Chem 7: 02/27/19 10:16 02/27/19 10:16 Assessment and Plan Plan: 1. Partial small bowel obstruction. Clear liquid diet no surgical intervention needed sternal Reglan initiated 5 mg 3 times a day Patient does well without NG tube usually managed conservatively. Normal saline to be continued at 75 per hour continue morphine sulfate 4 mg IV push every 4 hours, continue Zofran 4 mg IV push every 6 hours as needed, increase ambulation. 2. CAD post-PCI and stent placement last one with the June 2018. Continue metoprolol 12.5 mg orally once every day, simvastatin 20 mg orally once every day, hold Plavix for the next 24 hours and resume tomorrow morning. 3. Hypertension and hypertensive perivascular disease. Continue Lopressor 12.5 mg orally once every day, Cozaar 50 milligrams orally once every day. 4. Hyperlipidemia. Continue simvastatin 20 mg orally once every day. 5. GERD/PUD. Continue PPI. 6. History of diverticulitis. Plan for EGD and colonoscopy in the end of the month 7. Osteoarthritis. Stable. 8. DVT prophylaxis. Continue with Lovenox 40 mg subcutaneously every 24 hours. 9. GI prophylaxis. Continue patient on PPI.
[2019-02-28] MEDS: METOCLOPRAMIDE 5 MG TAB PO SCH (16:52)
[2019-02-28] MEDS: LOSARTAN 50 MG TAB PO SCH (20:18)
[2019-02-28] MEDS: ATORVASTATIN 10 MG TAB PO SCH (20:18)
[2019-03-01] MEDS: SODIUM CHLORIDE 0.9% 1,000 ML IV SCH (02:50)
[2019-03-01] MEDS: METOPROLOL TARTRATE 12.5 MG TAB PO SCH (08:23)
[2019-03-01] MEDS: METOCLOPRAMIDE 5 MG TAB PO SCH ×2 (08:23→12:08)
[2019-03-01] MEDS ORDERED: PANTOPRAZOLE 40 MG TABLET PO SCH (09:00)
[2019-03-01 12:01] VITALS: BP 130/74; PULSE 51; RESP 17; TEMP 97.9
--- NOTE | 2019-03-01 13:06 | P.PN ---
Subjective Progress Note Date: 03/01/19 Patient passing flatus and BM. denies pain denies NV tolerating clears today Objective - Vital Signs Vital signs: Vital Signs Temp 97.9 F 03/01/19 12:01 Pulse 51 L 03/01/19 12:01 Resp 17 03/01/19 12:01 BP 130/74 03/01/19 12:01 Pulse Ox 95 03/01/19 12:01 Intake & Output 02/28/19 03/01/19 03/01/19 18:59 06:59 18:59 Intake Total 1160 1260 Output Total 540 Balance 1160 720 Intake: Intake, IV Titration 300 Amount Sodium Chloride 0.9% 1, 300 000 ml @ 75 mls/hr IV . [id number] SANA Rx#:[id number] Oral 1160 960 Output: Urine 540 Other: Voiding Method Toilet Toilet Toilet # Voids 2 - Constitutional General appearance: Present: cooperative - Respiratory Details: nonlabored - Cardiovascular Rhythm: regular - Gastrointestinal Gastrointestinal Comment(s): S/NT/ND - Psychiatric Psychiatric: Present: A&O x's 3 - Labs CBC & Chem 7: 02/27/19 10:16 02/27/19 10:16 Assessment and Plan Assessment: Abdominal pain partial small bowel obstruction versus enteritis Plan: Patient doing well, may trial soft diet. When tolerating soft diet he may be discharged from surgical standpoint. He can follow up as an outpatient for en doscopy which is planned and possible hernia surgery pending cardiac recs.
--- NOTE | 2019-03-01 13:47 | P.DS ---
Providers Date of admission: 02/27/19 13:09 Attending physician: Clementine Arce MD Consults: 02/27/19 13:06 Consult Physician Stat Consulting Provider: Estiven Berkowitz Consult Reason/Comments: SBO Do you want consulting provider notified?: Yes Primary care physician: Clementine Arce MD Hospital Course: 83-year-old male patient of mine with the previous medical history of coronary artery disease status post-PCI and stent placement in 2001June 2018, peptic ulcer disease with duodenal ulcer history of GERD hypertension and hypertensive cardiovascular disease, hyperlipidemia osteoarthritis, history of hepatitis C in remission who was diagnosed with acute diverticulitis in November 2018, multiple admissions for partial small bowel obstruction last admission in December 2018, ventral hernia which is reducible which is supposedly to be repaired with Dr. berkowitz according to the patient, plan to undergo EGD and colonoscopy by the end of this month with Dr. berkowitz to rule out peptic ulcer disease. Patient comes in this time with increased nausea or vomiting and multiple episodes of diarrhea that started on Wednesday. According to the patient he had a good meal on Wednesday but started having diarrhea on Wednesday along with vomiting. Yesterday patient passed out for unknown amount of time after having a bowel movement and found himself covered with vomiting. He was helped by his and was brought to the room. Patient slept overnight and started having similar symptoms just morning and decided to come to the ER for evaluation. He did not have anything since yesterday morning. Patient denies any fever, chills, shortness of breath, any bloody bowel movement or melena. In the ER patient 796.6 pulse of 54 respiratory rate 18 blood pressure 146/71 labs suggestive of a leukocyte of 12.6, creatinine 1.35 increased from baseline of 1.13 CT abdomen and pelvis is done in the ER that suggestive lovings distal small bowel obstruction with transition point with the multiple air-fluid levels. Surgery consulted 02/28 patient doing well today. Diarrhea and nausea and vomiting has improved. Patient edition clear liquid diet today. Start patient on Reglan today watch for any akathysia or dyskinesia 03/01 Patient doing well and passing flatus and BM. Patient initiated on reglan and informed of the side effects. Will follow with me in the office and Dr. Benedict for possible EGD and colonscopy with Dr. Berkowitz in future for GI bleed Discharge diagnoses Partial small bowel obstruction with enteritis Ventral hernia History of GI bleed History of coronary artery disease status post stent placement in June 2018 Hypertension Hyperlipidemia GERD History of diverticulitis Osteoarthritis Disposition home with self-care Diet soft mechanical diet Patient Condition at Discharge: Stable Plan - Discharge Summary Discharge Rx Participant: No New Discharge Prescriptions: New Metoclopramide [Reglan] 5 mg PO AC-TID tab Continue Simvastatin [Zocor] 20 mg PO HS Clopidogrel [Plavix] 75 mg PO DAILY Metoprolol Tartrate [Lopressor] 12.5 mg PO DAILY Losartan [Cozaar] 50 mg PO HS #0 Triamcinolone Acetonide [Nasacort] 1 spray EA NOSTRIL DAILY PRN PRN Reason: Nasal Congestion Omeprazole 40 mg PO DAILY Loratadine [Claritin] 10 mg PO DAILY PRN PRN Reason: Allergy Symptoms Discharge Medication List Simvastatin [Zocor] 20 mg PO HS 02/23/14 [History] Clopidogrel [Plavix] 75 mg PO DAILY 08/05/18 [History] Metoprolol Tartrate [Lopressor] 12.5 mg PO DAILY 11/23/18 [History] Losartan [Cozaar] 50 mg PO HS #0 11/25/18 [Rx] Loratadine [Claritin] 10 mg PO DAILY PRN 02/14/19 [History] Omeprazole 40 mg PO DAILY 02/14/19 [History] Triamcinolone Acetonide [Nasacort] 1 spray EA NOSTRIL DAILY PRN 02/14/19 [History] Metoclopramide [Reglan] 5 mg PO AC-TID tab 03/01/19 [Rx] Follow up Appointment(s)/Referral(s): Clementine Arce MD [Primary Care Provider] - 1-2 days Jamel Benedict MD [STAFF PHYSICIAN] - 1 Week Estiven Berkowitz DO [Doctor of Osteopathic Medicine] - 1 Week Discharge Disposition: HOME SELF-CARE
== END 2019-03-01 16:25 | disposition home or self-care (01) | DRG 390 ==
LOC: EC 09:57 → 3NMEDONC 13:09
PROVIDERS: ADMIT Internal Medicine; ATTEND Internal Medicine
DX: K56.600 Partial intestinal obstruction, unspecified as to cause (principal); K43.9 Ventral hernia without obstruction or gangrene; E78.5 Hyperlipidemia, unspecified; H91.90 Unspecified hearing loss, unspecified ear; I11.9 Hypertensive heart disease without heart failure; I25.10 Atherosclerotic heart disease of native coronary artery without angina pectoris; J45.909 Unspecified asthma, uncomplicated; K21.9 Gastro-esophageal reflux disease without esophagitis; Z87.11 Personal history of peptic ulcer disease; Z86.010 Personal history of colon polyps; K52.9 Noninfective gastroenteritis and colitis, unspecified; M19.90 Unspecified osteoarthritis, unspecified site; R55 Syncope and collapse; Z79.02 Long term (current) use of antithrombotics/antiplatelets; Z80.1 Family history of malignant neoplasm of trachea, bronchus and lung; Z82.49 Family history of ischemic heart disease and other diseases of the circulatory system; Z87.891 Personal history of nicotine dependence; Z95.5 Presence of coronary angioplasty implant and graft; Z98.42 Cataract extraction status, left eye; Z98.41 Cataract extraction status, right eye; Z96.1 Presence of intraocular lens; Z90.49 Acquired absence of other specified parts of digestive tract; Z83.2 Family history of diseases of the blood and blood-forming organs and certain disorders involving the immune mechanism; Z80.7 Family history of other malignant neoplasms of lymphoid, hematopoietic and related tissues; Z88.0 Allergy status to penicillin; Z88.8 Allergy status to other drugs, medicaments and biological substances; K59.00 Constipation, unspecified; K44.9 Diaphragmatic hernia without obstruction or gangrene; Z84.1 Family history of disorders of kidney and ureter; Z86.19 Personal history of other infectious and parasitic diseases
CPT/HCPCS: 36415; 70450; 74177; 80053; 81001; 82150; 83605; 83690; 84484; 85025; 85610; 85730; 93005; 96361; 96374; 96375; 99285

== ENCOUNTER → 2019-03-04 | Outpatient (CLI) | payer MEDICARE ==
[2019-03-04 16:35] LABS: LDL Cholesterol,Calculated 66.8 mg/dL (0.0-131.0); VLDL Calculation 21.2 mg/dL (5.00-40.00)
== END | disposition home or self-care (01) ==
LOC: LABWHC1 08:46
PROVIDERS: ATTEND Nurse Practitioner Adult Health
DX: E78.2 Mixed hyperlipidemia (principal)
CPT/HCPCS: 36415; 80061; 84450; 84460

== ENCOUNTER 2019-04-26 11:40 | Emergency (ER) | payer MEDICARE ==
[2019-04-26 11:47] VITALS: RESP 18; TEMP 97.8
[2019-04-26] MEDS ORDERED: SODIUM CHLORIDE 0.9% 1,000 ML IV STA ×2 (12:17)
[2019-04-26] MEDS ORDERED: PANTOPRAZOLE 40 MG/10 ML VIAL IVP STA (12:17)
[2019-04-26 12:54] VITALS: BP 132/82; PULSE 78
[2019-04-26 13:06] LABS: Albumin 4.1 g/dL (3.5-5.0); Calcium 9.3 mg/dL (8.4-10.2); Potassium 4.3 mmol/L (3.5-5.1); Total Bilirubin 0.6 mg/dL (0.2-1.3); Total Protein 6.9 g/dL (6.3-8.2)
[2019-04-26 13:14] LABS: Basophils # (A) 0.1 k/uL (0-0.2); Basophils % (A) 1 %; Eosinophils # (A) 0.4 k/uL (0-0.7); Eosinophils % (A) 4 %; HCT 43.4 % (39.0-53.0); Lymphocytes # (A) 2.3 k/uL (1.0-4.8); Lymphocytes % (A) 24 %; MCH 29.5 pg (25.0-35.0); MCHC 32.6 g/dL (31.0-37.0); MCV 90.5 fL (80.0-100.0); Mean Platelet Volume 6.2; Monocytes # (A) 0.7 k/uL (0-1.0); Monocytes % (A) 8 %; Neutrophils # (A) 5.6 k/uL (1.3-7.7); Neutrophils % (A) 59 %; Platelet Count 232 k/uL (150-450); RBC 4.79 m/uL (4.30-5.90); RDW 13.2 % (11.5-15.5); WBC 9.5 k/uL (3.8-10.6)
[2019-04-26 13:16] LABS: HGB 14.1 gm/dL (13.0-17.5)
[2019-04-26 13:21] LABS: INR 0.9 (<1.2); Partial Thromboplastin Time 24.2 sec (22.0-30.0); Prothrombin Time 9.6 sec (9.0-12.0)
--- NOTE | 2019-04-26 13:43 | ED ---
Abdominal Pain HPI - General Chief Complaint: Abdominal Pain Stated Complaint: Abd pain, black stool Time Seen by Provider: 04/26/19 11:55 Source: patient, RN notes reviewed, old records reviewed Mode of arrival: ambulatory Limitations: no limitations - History of Present Illness Initial Comments: Patient is an 83-year-old male presents today with chief complaint of intermittent abdominal cramping pain. Complains some pain over the left lower quadrant. Patient reports that he had a history of generalized weakness and fatigue over the past few days. He states he did have some episodes of bloody stool. Patient reports it seemed to let up over the past 24 hours and he has not noticed any recent black stool. Patient states that he is not on any blood thinners besides aspirin at this time. Said history about shortened and GI bleeds and that brought him in. His surgeon is Dr. berkowitz. - Related Data Home Medications Medication Instructions Recorded Confirmed Simvastatin [Zocor] 20 mg PO HS 02/23/14 04/26/19 Clopidogrel [Plavix] 75 mg PO DAILY 08/05/18 04/26/19 Metoprolol Tartrate [Lopressor] 12.5 mg PO DAILY 11/23/18 04/26/19 Omeprazole 40 mg PO DAILY 02/14/19 04/26/19 Previous Rx's Medication Instructions Recorded Losartan [Cozaar] 50 mg PO HS #0 11/25/18 Ciprofloxacin HCl [Cipro] 500 mg PO Q12H #14 tab 04/26/19 metroNIDAZOLE [Flagyl] 500 mg PO Q8HR #21 tab 04/26/19 Allergies Allergy/AdvReac Type Severity Reaction Status Date / Time Penicillins Allergy Rash/Hives Verified 04/26/19 11:55 prednisone Allergy Rash/Hives Verified 04/26/19 11:55 Review of Systems ROS Statement: Those systems with pertinent positive or pertinent negative responses have been documented in the HPI. ROS Other: All systems not noted in ROS Statement are negative. Past Medical History Past Medical History: Asthma, Coronary Artery Disease (CAD), Chest Pain / Angina, GERD/Reflux, GI Bleed, Hearing Disorder / Deafness, Hyperlipidemia, Hypertension, Liver Disease, Osteoarthritis (OA) Additional Past Medical History / Comment(s): Pt recently admitted to [facility] on 11/23/18 with upper GI bleed. Other hx: Recurrent SBO d/t adhesions with conservative treatment and surgical treatment, mild leaky heart valve, lower GI bleed many years ago with exsanguination and stayed in ICU/had transfusions the n another less severe lower GI bleed a few years later, duodenal ulcer, hiatal hernia, hepatitis C d/t blood transfusion-2nd treatment successful, constipation, diverticulitis and past pre cancerous polypectomies-last colonoscopy was normal in 2018, low back pain, L shoulder pain, gout-saw head charrer in past, 06/2018 shingelles, HABEMATOLEL bilaterally. Divirticulitis History of Any Multi-Drug Resistant Organisms: None Reported Past Surgical History: Bowel Resection, Cholecystectomy, Heart Catheterization With Stent, Orthopedic Surgery Additional Past Surgical History / Comment(s): 06/2018 PCI with stent, 1999 PCI with 2 stents, laparotomy with lysis of adhesions, R rotator cuff repair, R knee arthroscopy, R upper chest lipoma removed, bilateral cataract removals/lens implants, EGD and colonoscopies with pre cancerous polypectomies-last colonoscopy in 2018 was normal per pt. Past Anesthesia/Blood Transfusion Reactions: Blood Transfusion Reaction Additional Past Anesthesia/Blood Transfusion Reaction / Comment(s): CONTRACTED HEP C FROM A BLOOD TRANSFUSION 35-40 YEARS AGO. Date of Last Stent Placement:: JUN 2018 Past Psychological History: No Psychological Hx Reported Smoking Status: Former smoker Past Alcohol Use History: None Reported Past Drug Use History: None Reported - Past Family History Mother Family Medical History: Cancer Additional Family Medical History / Comment(s): Other at age 80 from acute kidney injury following surgery. Patient had bladder suspension surgery and she developed to have possibly uterine cancer however she ended up with renal failure refused hemodialysis Father Family Medical History: Cancer, Deep Vein Thrombosis (DVT), Pulmonary Embolus Additional Family Medical History / Comment(s): LUNG CANCER. Father in his mid 60s due to blood clots with history of bladder cancer . The cause of pulmonary embolism. Brother(s) Family Medical History: Cancer, Coronary Artery Disease (CAD) Additional Family Medical History / Comment(s): Patient has one brother with history of non-Hodgkin's lymphoma diagnosed 15 YEARS AGO. He does not have any sisters. He has adult children with no major medical problem basically 2 sons and a daughter. General Exam - General Exam Comments Initial Comments: 83-year-old male. No distress. General: Well appearing, well nourished, in no distress. Oriented x 3, normal mood and affect . Ambulating without difficulty. Skin: Good turgor, no rash, unusual bruising or prominent lesions Hair: Normal texture and distribution. HEENT: Head: Normocephalic, atraumatic, no visible or palpable masses, depressions, or scaring. Eyes: Visual acuity intact, conjunctiva clear, sclera non-icteric, EOM intact, PERRL. Ears: EACs clear, TMs translucent & cone of light visualized. hearing intact. Nose: No external lesions, mucosa non-inflamed, septum and turbinates normal Mouth: Mucous membranes moist, no mucosal lesions. Teeth/Gums: No obvious caries or periodontal disease. No gingival inflammation or significant resorption. Pharynx: Mucosa non-inflamed, no tonsillar hypertrophy or exudate Neck: Supple, without lesions, bruits, or adenopathy, thyroid non-enlarged and non-tender Heart: No cardiomegaly or thrills; regular rate and rhythm, no murmur or gallop Lungs: Clear to auscultation and percussion Abdomen: Left lower quadrant and right upper quadrant tenderness. Back: Spine normal without deformity or tenderness, no CVA tenderness Rectal: Normal sphincter tone, no hemorrhoids or masses palpable no black tarry stool. Extremities: No amputations or deformities, cyanosis, edema or varicosities, peripheral pulses intact Musculoskeletal: Normal gait and station. No misalignment, asymmetry, crepitation, defects, tenderness, masses, effusions, decreased range of motion, instability, atrophy or abnormal strength or tone in the head, neck, spine, ribs, pelvis or extremities. Neurologic: CN 2-12 normal. Sensation to pain, touch, and proprioception normal. DTRs normal in upper and lower extremities. No pathologic reflexes. Psychiatric: Oriented X3, intact recent and remote memory, judgment and insight, normal mood and affect. Limitations: no limitations Course Vital Signs 04/26/19 04/26/19 11:43 12:53 Temperature 97.8 F Pulse Rate 77 78 Respiratory 18 18 Rate Blood Pressure 138/81 132/82 O2 Sat by Pulse 98 100 Oximetry Medical Decision Making - Medical Decision Making 83-year-old male. Presents today for right lower and left lower quadrant abdominal pain, concern for history of bloody stool. Patient at this time is negative fecal occult. Hemoglobin is normal. Blood work was otherwise unremarkable. Continue with the patient's tenderness did perform CT. CT and possibly shows evidence of mild diverticulitis. No other symptoms of abscesses or infection. Patient was informed results. Discussed with hemoglobin being stable unlikely for any concern for GI bleed again with a negative occult. Patient is agreeable to starting antibiotics for diverticulitis and close follow-up with primary care doctor. All questions were answered and return parameters were discussed. - Lab Data Result diagrams: 04/26/19 12:45 04/26/19 12:45 Lab Results 04/26/19 04/26/19 04/26/19 Range/Units 12:45 12:45 12:45 WBC 9.5 (3.8-10.6) k/uL RBC 4.79 (4.30-5.90) m/uL Hgb 14.1 D (13.0-17.5) gm/dL Hct 43.4 (39.0-53.0) % MCV 90.5 (80.0-100.0) fL MCH 29.5 (25.0-35.0) pg MCHC 32.6 (31.0-37.0) g/dL RDW 13.2 (11.5-15.5) % Plt Count 232 (150-450) k/uL Neutrophils % 59 % Lymphocytes % 24 % Monocytes % 8 % Eosinophils % 4 % Basophils % 1 % Neutrophils # 5.6 (1.3-7.7) k/uL Lymphocytes # 2.3 (1.0-4.8) k/uL Monocytes # 0.7 (0-1.0) k/uL Eosinophils # 0.4 (0-0.7) k/uL Basophils # 0.1 (0-0.2) k/uL PT 9.6 (9.0-12.0) sec INR 0.9 (<1.2) APTT 24.2 (22.0-30.0) sec Sodium 138 (137-145) mmol/L Potassium 4.3 (3.5-5.1) mmol/L Chloride 105 (98-107) mmol/L Carbon Dioxide 23 (22-30) mmol/L Anion Gap 10 mmol/L BUN 21 H (9-20) mg/dL Creatinine 1.22 (0.66-1.25) mg/dL Est GFR (CKD-EPI)AfAm 64 (>60 ml/min/1.73 sqM) Est GFR (CKD-EPI)NonAf 56 (>60 ml/min/1.73 sqM) Glucose 72 L (74-99) mg/dL Calcium 9.3 (8.4-10.2) mg/dL Total Bilirubin 0.6 (0.2-1.3) mg/dL AST 30 (17-59) U/L ALT 24 (21-72) U/L Alkaline Phosphatase 61 (38-126) U/L Total Protein 6.9 (6.3-8.2) g/dL Albumin 4.1 (3.5-5.0) g/dL Amylase 63 (30-110) U/L Lipase 58 (23-300) U/L Stool Occult Blood (Negative) 04/26/19 Range/Units 12:45 WBC (3.8-10.6) k/uL RBC (4.30-5.90) m/uL Hgb (13.0-17.5) gm/dL Hct (39.0-53.0) % MCV (80.0-100.0) fL MCH (25.0-35.0) pg MCHC (31.0-37.0) g/dL RDW (11.5-15.5) % Plt Count (150-450) k/uL Neutrophils % % Lymphocytes % % Monocytes % % Eosinophils % % Basophils % % Neutrophils # (1.3-7.7) k/uL Lymphocytes # (1.0-4.8) k/uL Monocytes # (0-1.0) k/uL Eosinophils # (0-0.7) k/uL Basophils # (0-0.2) k/uL PT (9.0-12.0) sec INR (<1.2) APTT (22.0-30.0) sec Sodium (137-145) mmol/L Potassium (3.5-5.1) mmol/L Chloride (98-107) mmol/L Carbon Dioxide (22-30) mmol/L Anion Gap mmol/L BUN (9-20) mg/dL Creatinine (0.66-1.25) mg/dL Est GFR (CKD-EPI)AfAm (>60 ml/min/1.73 sqM) Est GFR (CKD-EPI)NonAf (>60 ml/min/1.73 sqM) Glucose (74-99) mg/dL Calcium (8.4-10.2) mg/dL Total Bilirubin (0.2-1.3) mg/dL AST (17-59) U/L ALT (21-72) U/L Alkaline Phosphatase (38-126) U/L Total Protein (6.3-8.2) g/dL Albumin (3.5-5.0) g/dL Amylase (30-110) U/L Lipase (23-300) U/L Stool Occult Blood Negative (Negative) - Radiology Data Radiology results: report reviewed Colonic diverticulosis with advanced diverticulosis level sigmoid colon milder early focal uncomplicated acute diverticulitis is present as detailed. There is mild fat stranding a left lower quadrant. No pneumoperitoneum. No fluid collection. Disposition Clinical Impression: Diverticulitis Disposition: HOME SELF-CARE Condition: Stable Instructions (If sedation given, give patient instructions): Diverticulitis (ED), Diverticulitis Diet (ED) Additional Instructions: Please use medication as discussed. Please follow up with family doctor if symptoms have not improved over the next two days. Please return to the emergency room if your symptoms increase or worsen or for any other concerns. Prescriptions: Ciprofloxacin HCl [Cipro] 500 mg PO Q12H #14 tab metroNIDAZOLE [Flagyl] 500 mg PO Q8HR #21 tab Is patient prescribed a controlled substance at d/c from ED?: No Referrals: Clementine Arce MD [Primary Care Provider] - 1-2 days Time of Disposition: 15:20
--- NOTE | 2019-04-26 14:24 | CT ---
EXAMINATION TYPE: CT abdomen pelvis w con DATE OF EXAM: 04/26/2019 COMPARISON: CT abdomen and pelvis February 27, 2019. HISTORY: Abd pain and black stool CT DLP: 997.3 mGycm, Automated Exposure Control for Dose Reduction was Utilized. CONTRAST: CT scan of the abdomen and pelvis is performed without oral but with IV Contrast, patient injected wi th 60 mL of Isovue 300. FINDINGS: LUNG BASES: No significant abnormality is appreciated. LIVER/GB: Cholecystectomy clips are redemonstrated. PANCREAS: No significant abnormality is seen. SPLEEN: No significant abnormality is seen. ADRENALS: No significant abnormality is seen. KIDNEYS: Symmetric cortical medullary uptake and excretion without hydronephrosis seen bilaterally. S imple, 1.9 cm cyst laterally midpole of the left kidney axial image 27 series 301. BOWEL: Evaluation of bowel suboptimal secondary to lack of enteric contrast. There is 2.1 cm duodenal diverticulum second portion axial image 24 redemonstrated. Significant sigmoid colonic diverticulosi s. Scattered colonic diverticula throughout remainder of colon. Mild fat stranding left lower quadran t axial image 51. No pneumoperitoneum. No well-formed fluid collection. PROSTATE/SEMINAL VESICLES: Prostate gland is mildly enlarged. LYMPH NODES: No greater than 1cm abdominal or pelvic lymph nodes are appreciated. OSSEOUS STRUCTURES: Multilevel vacuum disc phenomenon and disc space narrowing in the spine most prom inent at lumbosacral junction. OTHER: No significant additional abnormality is seen. IMPRESSION: Colonic diverticulosis with advanced diverticulosis at level of sigmoid colon. Mild or ea rly focal uncomplicated acute diverticulitis is thought present as detailed above.
[2019-04-26] MEDS ORDERED: CIPROFLOXACIN HCL 500 MG TAB PO STA (15:07)
[2019-04-26] MEDS ORDERED: metroNIDAZOLE 500 MG TAB PO STA (15:07)
[2019-04-26 16:33] LABS: Appearance,Urine Clear (Clear); Bilirubin,Urine Negative (Negative); Blood,Urine Negative (Negative); Color,Urine Light Yellow; Glucose,Urine (UA) Negative (Negative); Ketones,Urine Negative (Negative); Leukocyte Esterase,Urine Negative (Negative); Nitrite,Urine Negative (Negative); Protein,Urine Negative (Negative); Urobilinogen,Urine <2.0 mg/dL (<2.0)
== END 2019-04-26 16:17 | disposition home or self-care (01) ==
LOC: EC 11:40
DX: K57.32 Diverticulitis of large intestine without perforation or abscess without bleeding (principal); I25.119 Atherosclerotic heart disease of native coronary artery with unspecified angina pectoris; K21.9 Gastro-esophageal reflux disease without esophagitis; H91.93 Unspecified hearing loss, bilateral; E78.5 Hyperlipidemia, unspecified; I10 Essential (primary) hypertension; Z87.891 Personal history of nicotine dependence; Z88.0 Allergy status to penicillin; Z88.8 Allergy status to other drugs, medicaments and biological substances; Z79.02 Long term (current) use of antithrombotics/antiplatelets; Z79.899 Other long term (current) drug therapy; Z87.19 Personal history of other diseases of the digestive system; Z90.49 Acquired absence of other specified parts of digestive tract; Z95.5 Presence of coronary angioplasty implant and graft
CPT/HCPCS: 36415; 80053; 82150; 83690; 85025; 85610; 85730; 82272; 81003; 74177; 99284; 96374; 96361 ×3; C9113; Q9967

== ENCOUNTER → 2019-07-10 | Outpatient (CLI) | payer MEDICARE ==
[2019-07-10 17:28] LABS: Chol/HDL Ratio 3.66; LDL Cholesterol,Calculated 73.2 mg/dL (0.0-131.0); VLDL Calculation 35.8 mg/dL (5.00-40.00)
== END | disposition home or self-care (01) ==
LOC: LABWHC1 08:05
PROVIDERS: ATTEND Nurse Practitioner Adult Health
DX: E78.2 Mixed hyperlipidemia (principal)
CPT/HCPCS: 36415; 80061; 84450; 84460

== ENCOUNTER → 2019-12-22 | Outpatient (CLI) | payer MEDICARE | END | disposition home or self-care (01) | LOC: LABWHC1 09:11 | PROVIDERS: ATTEND Nurse Practitioner Family | DX: B18.2 Chronic viral hepatitis C (principal) | CPT/HCPCS: 36415; 87522 ==

== ENCOUNTER → 2020-01-24 | Outpatient (CLI) | payer MEDICARE | END | disposition home or self-care (01) | LOC: LABWHC1 10:07 | PROVIDERS: ATTEND Psychiatry & Neurology Neurology | DX: G62.9 Polyneuropathy, unspecified (principal); R44.9 Unspecified symptoms and signs involving general sensations and perceptions; R26.89 Other abnormalities of gait and mobility | CPT/HCPCS: 36415; 82607; 84207 ==

== ENCOUNTER → 2020-02-08 | Outpatient (CLI) | payer MEDICARE ==
--- NOTE | 2020-02-08 09:19 | MR ---
EXAMINATION TYPE: MR cervical spine wo con DATE OF EXAM: 02/08/2020 COMPARISON: None HISTORY: Spondylosis with radiculopathy, compressive myelopathy, chronic neck pain CONTRAST: Performed utilizing 0 mL intravenous Gadavist gadolinium contrast. TECHNIQUE: Multiplanar multiecho imaging on a 3.0 Daniela magnet is performed through the cervical spin e. FINDINGS: The craniovertebral junction is normal. Vertebral body alignment is normal. Disc space n arrowing is noted C3-4 C4-5 C5-6. Very minimal grade 1 spondylolisthesis of C3 anteriorly on C4 may b e present. C7-T1: No focal disc herniation or significant disc bulge is evident. No spinal canal stenosis or n eural foraminal stenosis is present. C6-7: Mild disc bulge has mild anterior thecal sac compression. This extends towards the foramen. No spinal canal stenosis or cord contact is evident. There is mild bilateral foraminal narrowing.. C5-6: Mild disc bulging is anterior thecal sac flattening. No cord contact or spinal canal stenosis p resent. Some uncovertebral joint hypertrophy may be present with mild to moderate foraminal stenosis. . C4-5: Mild disc bulging is anterior thecal sac contact. This comes in close approximation with the sp inal cord. No AP spinal canal stenosis is present. No cord deformity is evident. Uncovertebral joint hypertrophy is moderate bilateral foraminal stenosis. C3-4: There may be a tiny central protrusion with minimal anterior thecal sac compression. No AP spin al canal stenosis present. Some left foraminal narrowing may be present.. C2-3: No focal disc herniation or significant disc bulge is evident. No spinal canal stenosis or michael ral foraminal stenosis is present. IMPRESSIONS: 1. Mild degenerative disc changes and disc bulging within the mid cervical spine. This comes in close approximation with the spinal cord at C4-5 without cord deformity. 2. Uncovertebral joint hypertrophy and disc bulging towards the foramen with mild to moderate foramin al narrowing discussed above.
== END | disposition home or self-care (01) ==
LOC: RADMRIMAIN 07:55
PROVIDERS: ATTEND Psychiatry & Neurology Neurology
DX: M48.02 Spinal stenosis, cervical region (principal); M50.120 Mid-cervical disc disorder, unspecified level; M50.320 Other cervical disc degeneration, mid-cervical region, unspecified level; M47.22 Other spondylosis with radiculopathy, cervical region
CPT/HCPCS: 72141

== ENCOUNTER 2020-03-15 06:33 | Inpatient (IN) | payer MEDICARE ==
[2020-03-15] MEDS ORDERED: ONDANSETRON 4 MG/2 ML VIAL IVP STA (07:04)
[2020-03-15] MEDS ORDERED: SODIUM CHLORIDE 0.9% 1,000 ML IV STA ×2 (07:04)
[2020-03-15] MEDS ORDERED: MORPHINE SULFATE 4 MG/ML SYRINGE IV STA (07:04)
[2020-03-15] MEDS ORDERED: PANTOPRAZOLE 40 MG/10 ML VIAL IVP STA (07:04)
--- NOTE | 2020-03-15 07:10 | ED ---
Abdominal Pain HPI - General Chief Complaint: Abdominal Pain Stated Complaint: constipation Time Seen by Provider: 03/15/20 06:48 Source: patient, RN notes reviewed, old records reviewed Mode of arrival: ambulatory - History of Present Illness Initial Comments: Patient is an 84-year-old male presents emergency department today for evaluation for concern for concern for possible bowel obstruction. Patient states that he's had them in the past. Patient reports that he has developed some right-sided upper abdominal pain and fullness and nausea and vomiting and distention concern that his last previous bowel junction. Patient at this time has no fevers or chills. He does report that he has had some loose stools the past day. Patient denies any chest pain or shortness of breath. - Related Data Home Medications Medication Instructions Recorded Confirmed Simvastatin [Zocor] 20 mg PO HS 02/23/14 03/15/20 Omeprazole 40 mg PO DAILY 02/14/19 03/15/20 Aspirin EC [Ecotrin Low Dose] 81 mg PO DAILY 02/23/20 03/15/20 Calcium Citrate/Vitamin D3 1 tab PO DAILY 02/23/20 03/15/20 [Citracal + D Maximum Caplet] Cyanocobalamin (Vitamin B-12) 1,000 mcg PO MOWEFR 02/23/20 03/15/20 [Vitamin B-12] Metoprolol Tartrate [Lopressor] 12.5 mg PO BID 02/23/20 03/15/20 Vitamin B Complex 1 cap PO DAILY 02/23/20 03/15/20 Montelukast Sodium [Singulair] 10 mg PO HS 03/15/20 03/15/20 amLODIPine [Norvasc] 5 mg PO DAILY 03/15/20 03/15/20 Allergies Allergy/AdvReac Type Severity Reaction Status Date / Time Penicillins Allergy Rash/Hives Verified 03/15/20 07:43 prednisone Allergy Rash/Hives Verified 03/15/20 07:43 Review of Systems ROS Statement: Those systems with pertinent positive or pertinent negative responses have been documented in the HPI. ROS Other: All systems not noted in ROS Statement are negative. Past Medical History Past Medical History: Asthma, Coronary Artery Disease (CAD), Chest Pain / Angina, GERD/Reflux, GI Bleed, Hearing Disorder / Deafness, Hyperlipidemia, Hypertension, Liver Disease, Osteoarthritis (OA) Additional Past Medical History / Comment(s): Pt recently admitted to [facility] on 11/23/18 with upper GI bleed. Other hx: Recurrent SBO d/t adhesions with conservative treatment and surgical treatment, mild leaky heart valve, lower GI bleed many years ago with exsanguination and stayed in ICU/had transfusions then another less severe lower GI bleed a few years later, duodenal ulcer, hiatal hernia, hepatitis C d/t blood transfusion-2nd treatment successful, constipation, diverticulitis and past pre cancerous polypectomies-last colonoscopy was normal in 2018, low back pain, L shoulder pain, gout-saw special effects specialist in past, 06/2018 shingelles, KASHIA bilaterally. Divirticulitis History of Any Multi-Drug Resistant Organisms: None Reported Past Surgical History: Bowel Resection, Cholecystectomy, Heart Catheterization With Stent, Orthopedic Surgery Additional Past Surgical History / Comment(s): 06/2018 PCI with stent, 1999 PCI with 2 stents, laparotomy with lysis of adhesions, R rotator cuff repair, R knee arthroscopy, R upper chest lipoma removed, bilateral cataract removals/lens implants, EGD and colonoscopies with pre cancerous polypectomies-last colonoscopy in 2018 was normal per pt. Past Anesthesia/Blood Transfusion Reactions: Blood Transfusion Reaction Additional Past Anesthesia/Blood Transfusion Reaction / Comment(s): CONTRACTED HEP C FROM A BLOOD TRANSFUSION 35-40 YEARS AGO. Date of Last Stent Placement:: JUN 2018 Past Psychological History: No Psychological Hx Reported Smoking Status: Former smoker Past Alcohol Use History: None Reported Past Drug Use History: None Reported - Past Family History Mother Family Medical History: Cancer Additional Family Medical History / Comment(s): Other at age 80 from acute kidney injury following surgery. Patient had bladder suspension surgery and she developed to have possibly uterine cancer however she ended up with renal failure refused hemodialysis Father Family Medical History: Cancer, Deep Vein Thrombosis (DVT), Pulmonary Embolus Additional Family Medical History / Comment(s): LUNG CANCER. Father in his mid 60s due to blood clots with history of bladder cancer . The cause of pulmonary embolism. Brother(s) Family Medical History: Cancer, Coronary Artery Disease (CAD) Additional Family Medical History / Comment(s): Patient has one brother with history of non-Hodgkin's lymphoma diagnosed 15 YEARS AGO. He does not have any sisters. He has adult children with no major medical problem basically 2 sons and a daughter. General Exam - General Exam Comments Initial Comments: 84 year old male, no distress. General appearance: alert, in no apparent distress Head exam: Present: atraumatic Eye exam: Present: normal appearance, PERRL, EOMI. Absent: scleral icterus, conjunctival injection, periorbital swelling ENT exam: Present: normal exam Neck exam: Present: normal inspection. Absent: tenderness, meningismus, lymphadenopathy Respiratory exam: Present: normal lung sounds bilaterally. Absent: respiratory distress, wheezes, rales, rhonchi, stridor Cardiovascular Exam: Present: regular rate, normal rhythm, normal heart sounds. Absent: systolic murmur, diastolic murmur, rubs, gallop, clicks GI/Abdominal exam: Present: distended, normal bowel sounds, hernia (Readmitted the incision line. This is reducible. No erythema.), other. Absent: soft, tenderness, guarding, rebound, rigid Extremities exam: Present: normal inspection, full ROM, normal capillary refill. Absent: tenderness, pedal edema, joint swelling, calf tenderness Back exam: Present: normal inspection Neurological exam: Present: alert, oriented X3, CN II-XII intact Psychiatric exam: Present: normal affect, normal mood Skin exam: Present: warm, dry, intact, normal color. Absent: rash Course Vital Signs 03/15/20 06:35 Temperature 98.1 F Pulse Rate 80 Respiratory 19 Rate Blood Pressure 129/78 O2 Sat by Pulse 97 Oximetry Medical Decision Making - Medical Decision Making 10-year-old male process returns today with nausea vomiting concern for bowel instructions. Have episodes of diarrhea last night has had vomiting this morning. Patient said history about instructions past. Patient's labs reviewed and unremarkable. CT shows evidence of dilated bowel with several incarcerated midline hernia. Patient's hernia is reducible no erythema. Patient was given nausea medication pain medication related resting heavily bed. Patient sent in from vomiting. Discussed the concern for dilated bowel ileus versus early obstruction. Discussed the case with Dr. Dugan. He discussed the patient's admi tting physician. - Lab Data Result diagrams: 03/15/20 07:28 03/15/20 07:28 Lab Results 03/15/20 03/15/20 03/15/20 Range/Units 07:28 07:28 07:28 WBC 10.1 (3.8-10.6) k/uL RBC 5.31 (4.30-5.90) m/uL Hgb 16.5 (13.0-17.5) gm/dL Hct 49.0 (39.0-53.0) % MCV 92.3 (80.0-100.0) fL MCH 31.1 (25.0-35.0) pg MCHC 33.7 (31.0-37.0) g/dL RDW 13.2 (11.5-15.5) % Plt Count 244 (150-450) k/uL Neutrophils % 68 % Lymphocytes % 18 % Monocytes % 8 % Eosinophils % 3 % Basophils % 1 % Neutrophils # 6.8 (1.3-7.7) k/uL Lymphocytes # 1.8 (1.0-4.8) k/uL Monocytes # 0.8 (0-1.0) k/uL Eosinophils # 0.3 (0-0.7) k/uL Basophils # 0.1 (0-0.2) k/uL PT (9.0-12.0) sec INR (<1.2) APTT (22.0-30.0) sec Sodium 136 L (137-145) mmol/L Potassium 4.2 (3.5-5.1) mmol/L Chloride 105 (98-107) mmol/L Carbon Dioxide 21 L (22-30) mmol/L Anion Gap 10 mmol/L BUN 15 (9-20) mg/dL Creatinine 1.13 (0.66-1.25) mg/dL Est GFR (CKD-EPI)AfAm 70 (>60 ml/min/1.73 sqM) Est GFR (CKD-EPI)NonAf 61 (>60 ml/min/1.73 sqM) Glucose 106 H (74-99) mg/dL Plasma Lactic Acid Luiz 1.1 (0.7-2.0) mmol/L Calcium 8.8 (8.4-10.2) mg/dL Total Bilirubin 1.1 (0.2-1.3) mg/dL AST 37 (17-59) U/L ALT 36 (4-49) U/L Alkaline Phosphatase 59 (38-126) U/L Total Protein 6.7 (6.3-8.2) g/dL Albumin 4.1 (3.5-5.0) g/dL Amylase 54 (30-110) U/L Lipase 37 (23-300) U/L 03/15/20 Range/Units 07:28 WBC (3.8-10.6) k/uL RBC (4.30-5.90) m/uL Hgb (13.0-17.5) gm/dL Hct (39.0-53.0) % MCV (80.0-100.0) fL MCH (25.0-35.0) pg MCHC (31.0-37.0) g/dL RDW (11.5-15.5) % Plt Count (150-450) k/uL Neutrophils % % Lymphocytes % % Monocytes % % Eosinophils % % Basophils % % Neutrophils # (1.3-7.7) k/uL Lymphocytes # (1.0-4.8) k/uL Monocytes # (0-1.0) k/uL Eosinophils # (0-0.7) k/uL Basophils # (0-0.2) k/uL PT 9.9 (9.0-12.0) sec INR 0.9 (<1.2) APTT 23.4 (22.0-30.0) sec Sodium (137-145) mmol/L Potassium (3.5-5.1) mmol/L Chloride (98-107) mmol/L Carbon Dioxide (22-30) mmol/L Anion Gap mmol/L BUN (9-20) mg/dL Creatinine (0.66-1.25) mg/dL Est GFR (CKD-EPI)AfAm (>60 ml/min/1.73 sqM) Est GFR (CKD-EPI)NonAf (>60 ml/min/1.73 sqM) Glucose (74-99) mg/dL Plasma Lactic Acid Luiz (0.7-2.0) mmol/L Calcium (8.4-10.2) mg/dL Total Bilirubin (0.2-1.3) mg/dL AST (17-59) U/L ALT (4-49) U/L Alkaline Phosphatase (38-126) U/L Total Protein (6.3-8.2) g/dL Albumin (3.5-5.0) g/dL Amylase (30-110) U/L Lipase (23-300) U/L - Radiology Data Radiology results: report reviewed Distended bowel measuring 2.7. Anterior abdominal wall hernia just left of the midline containing short segment of incarcerated small bowel. Disposition Clinical Impression: SBO (small bowel obstruction), Hernia Disposition: ADMITTED IP TO THIS [facility] Condition: Good Is patient prescribed a controlled substance at d/c from ED?: No Referrals: Clementine Arce MD [Primary Care Provider] - 1-2 days Time of Disposition: 09:47
[2020-03-15 08:19] LABS: Basophils # (A) 0.1 k/uL (0-0.2); Basophils % (A) 1 %; Eosinophils # (A) 0.3 k/uL (0-0.7); Eosinophils % (A) 3 %; HGB 16.5 gm/dL (13.0-17.5); Lymphocytes # (A) 1.8 k/uL (1.0-4.8); Lymphocytes % (A) 18 %; MCH 31.1 pg (25.0-35.0); MCHC 33.7 g/dL (31.0-37.0); MCV 92.3 fL (80.0-100.0); Mean Platelet Volume 7.3; Monocytes # (A) 0.8 k/uL (0-1.0); Monocytes % (A) 8 %; Neutrophils # (A) 6.8 k/uL (1.3-7.7); Neutrophils % (A) 68 %; Platelet Count 244 k/uL (150-450); RBC 5.31 m/uL (4.30-5.90); RDW 13.2 % (11.5-15.5); WBC 10.1 k/uL (3.8-10.6)
[2020-03-15 08:21] LABS: Albumin 4.1 g/dL (3.5-5.0); Calcium 8.8 mg/dL (8.4-10.2); Potassium 4.2 mmol/L (3.5-5.1); Total Bilirubin 1.1 mg/dL (0.2-1.3); Total Protein 6.7 g/dL (6.3-8.2)
[2020-03-15 08:25] LABS: INR 0.9 (<1.2); Partial Thromboplastin Time 23.4 sec (22.0-30.0); Prothrombin Time 9.9 sec (9.0-12.0)
--- NOTE | 2020-03-15 08:47 | CT ---
EXAMINATION TYPE: CT abdomen pelvis w con DATE OF EXAM: 03/15/2020 COMPARISON: HISTORY: Rt sided periumbilical pain, history of bowel obstruction CT DLP: 978 mGycm CONTRAST: CT scan of the abdomen and pelvis is performed without Oral Contrast and with IV Contrast, patient in jected with 100 mL of Isovue 300. FINDINGS: LUNG BASES-: No visible nodule. No infiltrate. LIVER/GB: Fatty liver noted. Cholecystectomy clips in place. No space occupying hepatic lesion. Bilia ry tree is of normal caliber. PANCREAS: No inflammation. No distinct mass. SPLEEN: No splenic enlargement. No lesion seen. ADRENALS: No nodule. No thickening. KIDNEYS/BLADDER: No hydronephrosis. No nephrolithiasis. No distinct renal mass. Urinary bladder g rossly unremarkable. BOWEL: Nonvisualization of the appendix. Distended small bowel measuring up to 2.8 cm. Anterior abdom inal wall hernia just to the left of midline containing a short segment of incarcerated small bowel. No free air or abscess. Sigmoid diverticulosis without diverticulitis. GENITAL ORGANS: No gross abnormality. LYMPH NODES: No greater than 1cm abdominal or pelvic lymph nodes are appreciated. AORTA: No significant abnormality. OSSEOUS STRUCTURES: No significant abnormality is seen. OTHER: No significant additional abnormality is seen. IMPRESSION: 1. Distended small bowel measuring up to 2.8 cm. Anterior abdominal wall hernia just to the left of m idline containing a short segment of incarcerated small bowel.
[2020-03-15] MEDS ORDERED: NALOXONE 0.4 MG/ML 1 ML VIAL IV PRN (09:48)
[2020-03-15] MEDS ORDERED: IBUPROFEN 400 MG TAB PO PRN (09:48)
[2020-03-15] MEDS ORDERED: ACETAMINOPHEN TAB 325 MG TAB PO PRN (09:48)
[2020-03-15] MEDS ORDERED: MORPHINE SULFATE 4 MG/ML SYRINGE IV PRN (09:48)
[2020-03-15 10:54] LABS: Appearance,Urine Clear (Clear); Bilirubin,Urine Negative (Negative); Blood,Urine Negative (Negative); Color,Urine Light Yellow; Glucose,Urine (UA) Negative (Negative); Ketones,Urine Trace (Negative); Leukocyte Esterase,Urine Negative (Negative); Nitrite,Urine Negative (Negative); PH, Urine 5.5 (5.0-8.0); Protein,Urine Negative (Negative); Specific Gravity,Urine 1.037 (1.001-1.035); Urobilinogen,Urine <2.0 mg/dL (<2.0)
[2020-03-15] MEDS: SODIUM CHLORIDE 0.9% 1,000 ML IV SCH ×2 (12:30→20:23)
--- NOTE | 2020-03-15 19:32 | P.GSCN ---
History of Present Illness Consult date: 03/15/20 Reason for Consult: Abdominal pain History of present illness: The patient is a 84-year-old man who has episodes of partial bowel obstruction a nd admission. He had surgery for an obstruction by Dr. Munguia in 2016. He hasn't required surgery since that time. Wednesday began having cramps and abdominal discomfort. Wednesday night he had a couple of bowel movements. the pain eased off a little bit. It came back evening. He had another bowel movement. This morning it got quite severe and he came into the emergency department. He was having severe nausea but no vomiting. He received pain medication and now is quite comfortable. No nausea. It is small bowel movement which was watery earlier today. No fevers no chills. He has a known umbilical/incisional hernia which is not bothering him Review of Systems All systems: negative Past Medical History Past Medical History: Asthma, Coronary Artery Disease (CAD), Chest Pain / [place] na, GERD/Reflux, GI Bleed, Hearing Disorder / Deafness, Hyperlipidemia, Hypertension, Liver Disease, Osteoarthritis (OA) Additional Past Medical History / Comment(s): Recurrent SBO d/t adhesions with conservative treatment and surgical treatment, mild leaky heart valve, bleeding ulcer/lower GI bleed many years ago with exsanguination and stayed in ICU/had transfusions then another less severe lower GI bleed a few years later, upper GI bleed, duodenal ulcer, hiatal hernia, hepatitis C d/t blood transfusion-2nd treatment successful, some recent short term memory issues/tremors in hands and balance issues past few months being worked up, constipation, diverticulitis and past pre cancerous polypectomies-last colonoscopy was normal in 2018, low back pain, L shoulder pain, gout-saw gastroenterology physician in past, 06/2018 shingelles, LOWER [place] bilaterally, ventral hernia. History of Any Multi-Drug Resistant Organisms: None Reported Past Surgical History: Bowel Resection, Cholecystectomy, Heart Catheterization With Stent, Orthopedic Surgery Additional Past Surgical History / Comment(s): 06/2018 PCI with stent, 1999 PCI with 2 stents, laparotomy with lysis of adhesions, R rotator cuff repair, R knee arthroscopy, R upper chest lipoma removed, bilateral cataract removals/lens implants, EGD and colonoscopies with pre cancerous polypectomies-last colonoscopy in 2017 was normal per pt. Past Anesthesia/Blood Transfusion Reactions: Blood Transfusion Reaction Additional Past Anesthesia/Blood Transfusion Reaction / Comm: CONTRACTED HEP C FROM A BLOOD TRANSFUSION 35-40 YEARS AGO. Date of Last Stent Placement:: JUN 2018 Smoking Status: Former smoker - Past Family History Mother Family Medical History: Cancer Additional Family Medical History / Comment(s): Other at age 80 from acute kidney injury following surgery. Patient had bladder suspension surgery and she developed to have possibly uterine cancer however she ended up with renal failure refused hemodialysis Father Family Medical History: Cancer, Deep Vein Thrombosis (DVT), Pulmonary Embolus Additional Family Medical History / Comment(s): LUNG CANCER. Father in his mid 60s due to blood clots with history of bladder cancer . The cause of pulmonary embolism. Brother(s) Family Medical History: Cancer, Coronary Artery Disease (CAD) Additional Family Medical History / Comment(s): Patient has one brother with history of non-Hodgkin's lymphoma diagnosed 15 YEARS AGO. He does not have any sisters. He has adult children with no major medical problem basically 2 sons and a daughter. Medications and Allergies Home Medications Medication Instructions Recorded Confirmed Type Simvastatin [Zocor] 20 mg PO HS 02/23/14 03/15/20 History Omeprazole 40 mg PO DAILY 02/14/19 03/15/20 History Aspirin EC [Ecotrin Low Dose] 81 mg PO DAILY 02/23/20 03/15/20 History Calcium Citrate/Vitamin D3 1 tab PO DAILY 02/23/20 03/15/20 History [Citracal + D Maximum Caplet] Cyanocobalamin (Vitamin B-12) 1,000 mcg PO MOWEFR 02/23/20 03/15/20 History [Vitamin B-12] Metoprolol Tartrate [Lopressor] 12.5 mg PO BID 02/23/20 03/15/20 History Vitamin B Complex 1 cap PO DAILY 02/23/20 03/15/20 History Montelukast Sodium [Singulair] 10 mg PO HS 03/15/20 03/15/20 History amLODIPine [Norvasc] 5 mg PO DAILY 03/15/20 03/15/20 History Allergies Allergy/AdvReac Type Severity Reaction Status Date / Time Penicillins Allergy Rash/Hives Verified 03/15/20 07:43 prednisone Allergy Rash/Hives Verified 03/15/20 07:43 Surgical - Exam Osteopathic Statement: *. No significant issues noted on an osteopathic st ructural exam other than those noted in the History and Physical/Consult. Vital Signs Temp Pulse Resp BP Pulse Ox 98.1 F 80 19 129/78 97 03/15/20 06:35 03/15/20 06:35 03/15/20 06:35 03/15/20 06:35 03/15/20 06:35 - General well developed, well nourished, no distress - Eyes normal ocular movement - Neck trachea midline - Respiratory clear to auscultation - Cardiovascular Rhythm: regular - Abdomen Abdomen: soft, tender (Very minimal tenderness, patient says is much less tender than earlier today), distended (Mildly distended and tympanitic) Hernia: incisional (Soft nonincarcerated) Results - Labs 03/15/20 07:28 03/15/20 07:28 Abnormal Lab Results - Last 24 Hours (Table) 03/15/20 03/15/20 Range/Units 07:28 07:28 Sodium 136 L (137-145) mmol/L Carbon Dioxide 21 L (22-30) mmol/L Glucose 106 H (74-99) mg/dL Ur Specific [place] 1.037 H (1.001-1.035) Urine Ketones Trace H (Negative) Diabetes panel 03/15/20 Range/Units 07:28 Sodium 136 L (137-145) mmol/L Potassium 4.2 (3.5-5.1) mmol/L Chloride 105 (98-107) mmol/L Carbon Dioxide 21 L (22-30) mmol/L BUN 15 (9-20) mg/dL Creatinine 1.13 (0.66-1.25) mg/dL Glucose 106 H (74-99) mg/dL Calcium 8.8 (8.4-10.2) mg/dL AST 37 (17-59) U/L ALT 36 (4-49) U/L Alkaline Phosphatase 59 (38-126) U/L Total Protein 6.7 (6.3-8.2) g/dL Albumin 4.1 (3.5-5.0) g/dL Calcium panel 03/15/20 Range/Units 07:28 Calcium 8.8 (8.4-10.2) mg/dL Albumin 4.1 (3.5-5.0) g/dL Pituitary panel 03/15/20 Range/Units 07:28 Sodium 136 L (137-145) mmol/L Potassium 4.2 (3.5-5.1) mmol/L Chloride 105 (98-107) mmol/L Carbon Dioxide 21 L (22-30) mmol/L BUN 15 (9-20) mg/dL Creatinine 1.13 (0.66-1.25) mg/dL Glucose 106 H (74-99) mg/dL Calcium 8.8 (8.4-10.2) mg/dL Adrenal panel 03/15/20 Range/Units 07:28 Sodium 136 L (137-145) mmol/L Potassium 4.2 (3.5-5.1) mmol/L Chloride 105 (98-107) mmol/L Carbon Dioxide 21 L (22-30) mmol/L BUN 15 (9-20) mg/dL Creatinine 1.13 (0.66-1.25) mg/dL Glucose 106 H (74-99) mg/dL Calcium 8.8 (8.4-10.2) mg/dL Total Bilirubin 1.1 (0.2-1.3) mg/dL AST 37 (17-59) U/L ALT 36 (4-49) U/L Alkaline Phosphatase 59 (38-126) U/L Total Protein 6.7 (6.3-8.2) g/dL Albumin 4.1 (3.5-5.0) g/dL - Imaging CT scan - abdomen: report reviewed, image reviewed CT scan - pelvis: report reviewed, image reviewed Assessment and Plan (1) Hernia Current Visit: Yes Status: Acute Code(s): K46.9 - UNSPECIFIED ABDOMINAL HERNIA WITHOUT OBSTRUCTION OR GANGRENE SNOMED Code(s): 80502860 (2) Small bowel obstruction Current Visit: Yes Status: Acute Code(s): K56.609 - UNSP INTESTNL OBST, UNSP TO PARTIAL VERSUS COMPLETE OBST SNOMED Code(s): 528322600 (3) Abdominal pain Current Visit: No Status: Acute Code(s): R10.9 - UNSPECIFIED ABDOMINAL PAIN SNOMED Code(s): 04127514 Plan: The patient appears to be responding quickly to medical therapy. I recommend hydration. DVT and ulcer prophylaxis. If the patient is without nausea or pain in the morning, he could be started on clear liquids and advance as tolerated. I'll follow with you.
[2020-03-15] MEDS: METOPROLOL TARTRATE 12.5 MG TAB PO SCH (20:22)
[2020-03-15] MEDS: KETOROLAC 15 MG/ML 1 ML VIAL IVP PRN (20:22)
--- NOTE | 2020-03-15 22:26 | P.HPIM ---
History of Present Illness H&P Date: 03/15/20 Chief Complaint: Severe abdominal pain, partial bowel obstruction, possible incarcerated her 84-year-old male one of Dr. Arce's patient with past medical history of coronary artery disease, GI bleed, hypertension, hyperlipidemia, chronic liver disease, hepatitis C who was hospitalized few weeks ago for partial small bowel obstruction respond to medical management. Apparently patient had significant adhesion with multiple admission for small bowel obstruction in the past. Patient developed to have since Wednesday night mild abdominal discomfort with nausea. Patient apparently was referred to Dr. Andrade for tremor 9 Parkinson- type has further study with neck MRI brain MRI EEG for seizure with no major abnormality at the time. His abdominal pain become quite bed severe in the picture this week were patient initially developed to have to the episode of diarrhea and then developed with no bowel movement for the last 48 hours where he started having significant nausea with dry heaves with significant mid abdominal lower abdominal pain. Patient had quite bit distention no appetite no urinary retention or symptoms developed to have worsening symptoms with diste ntion as well and quite bed severe discomfort around the umbilical area. Patient ended up coming to the emergency department at [facility] where was seen and evaluated the end up going for CT of the abdomen and pelvis results suspicious for partial small bowel obstruction with anterior abdominal wall hernia just to the left of the midline containing short segment of incarcerated small bowel. Patient did not require any NG tube. Laboratory value from demurs department showed mildly elevated liver enzyme with normal lipase and amylase normal white blood cell and hemoglobin normal UA. Patient was started on hydration pain management and admitted to the hospital will be seen Dr. berkowitz who he seen before for the same problem. Review of Systems CONSTITUTIONAL: Well-developed no acute respiratory distress. EYES: No icterus sclerae, no conjunctivitis. EARS, NOSE, MOUTH, THROAT, and FACE: No sore throat, lymphadenopathy, carotid bruits or deformity. RESPIRATORY: No SOB cough or wheezes. CARDIOVASCULAR: Positive PND at 70 palpitation no angina. GASTROINTESTINAL: Positive abdominal pain with nausea no vomiting diarrhea yesterday with no bowel movement today significant bowel distention. GENITOURINARY: Negative for Hematuria or UTI, no kidney stones. INTEGUMENT/BREAST: Negative for any muscular injury with mild osteoarthritis.. HEMATOLOGIC/LYMPHATIC: Negative for bleed or purpura. MUSCULOSKELTAL: Negative for Myalgia or arthralgia. NEURLOGICAL: No LOC, Sz or syncope, blurred vision dizziness or abnormality.. BEHAVIORAL/PSYCH: Negative. ENDOCRINE: Negative. Past Medical History Past Medical History: Asthma, Coronary Artery Disease (CAD), Chest Pain / Angina, GERD/Reflux, GI Bleed, Hearing Disorder / Deafness, Hyperlipidemia, Hypertension, Liver Disease, Osteoarthritis (OA) Additional Past Medical History / Comment(s): Recurrent SBO d/t adhesions with conservative treatment and surgical treatment, mild leaky heart valve, bleeding ulcer/lower GI bleed many years ago with exsanguination and stayed in ICU/had transfusions then another less severe lower GI bleed a few years later, upper GI bleed, duodenal ulcer, hiatal hernia, hepatitis C d/t blood transfusion-2nd treatment successful, some recent short term memory issues/tremors in hands and balance issues past few months being worked up, constipation, diverticulitis and past pre cancerous polypectomies-last colonoscopy was normal in 2018, low back pain, L shoulder pain, 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 History of Any Multi-Drug Resistant Organisms: None Reported Past Surgical History: Bowel Resection, Cholecystectomy, Heart Catheterization With Stent, Orthopedic Surgery Additional Past Surgical History / Comment(s): 06/2018 PCI with stent, 1999 PCI with 2 stents, laparotomy with lysis of adhesions, R rotator cuff repair, R knee arthroscopy, R upper chest lipoma removed, bilateral cataract removals/lens implants, EGD and colonoscopies with pre cancerous polypectomies-last colonoscopy in 2018 was normal per pt. Past Anesthesia/Blood Transfusion Reactions: Blood Transfusion Reaction Additional Past Anesthesia/Blood Transfusion Reaction / Comment(s): CONTRACTED HEP C FROM A BLOOD TRANSFUSION 35-40 YEARS AGO. Date of Last Stent Placement:: JUN 2018 Smoking Status: Former smoker - Past Family History Mother Family Medical History: Cancer Additional Family Medical History / Comment(s): Other at age 80 from acute kidney injury following surgery. Patient had bladder suspension surgery and she developed to have possibly uterine cancer however she ended up with renal failure refused hemodialysis Father Family Medical History: Cancer, Deep Vein Thrombosis (DVT), Pulmonary Embolus Additional Family Medical History / Comment(s): LUNG CANCER. Father in his mid 60s due to blood clots with history of bladder cancer . The cause of pulmonary embolism. Brother(s) Family Medical History: Cancer, Coronary Artery Disease (CAD) Additional Family Medical History / Comment(s): Patient has one brother with history of non-Hodgkin's lymphoma diagnosed 15 YEARS AGO. He does not have any sisters. He has adult children with no major medical problem basically 2 sons and a daughter. Medications and Allergies Home Medications Medication Instructions Recorded Confirmed Type Simvastatin [Zocor] 20 mg PO HS 02/23/14 03/15/20 History Omeprazole 40 mg PO DAILY 02/14/19 03/15/20 History Aspirin EC [Ecotrin Low Dose] 81 mg PO DAILY 02/23/20 03/15/20 History Calcium Citrate/Vitamin D3 1 tab PO DAILY 02/23/20 03/15/20 History [Citracal + D Maximum Caplet] Cyanocobalamin (Vitamin B-12) 1,000 mcg PO MOWEFR 02/23/20 03/15/20 History [Vitamin B-12] Metoprolol Tartrate [Lopressor] 12.5 mg PO BID 02/23/20 03/15/20 History Vitamin B Complex 1 cap PO DAILY 02/23/20 03/15/20 History Montelukast Sodium [Singulair] 10 mg PO HS 03/15/20 03/15/20 History amLODIPine [Norvasc] 5 mg PO DAILY 03/15/20 03/15/20 History Allergies Allergy/AdvReac Type Severity Reaction Status Date / Time Penicillins Allergy Rash/Hives Verified 03/15/20 07:43 prednisone Allergy Rash/Hives Verified 03/15/20 07:43 Physical Exam Vitals: Vital Signs Temp Pulse Pulse Resp BP BP Pulse Ox 03/15/20 14:22 98.0 F 56 L 16 142/76 94 L 03/15/20 11:56 98.1 F 55 L 16 156/77 94 L 03/15/20 10:36 64 18 140/78 95 03/15/20 06:35 98.1 F 80 19 129/78 97 Intake and Output 03/15/20 03/15/20 03/15/20 06:59 14:59 22:59 Other: # Voids 1 Weight 74.843 kg 74.843 kg General Appearance: Alert, cooperative, no distress, appears stated age. Neck HEENT: Supple, no lymphadenopathy, no thyroid enlargement, no carotid bruits. Lungs: Decreased breaths home bilateral femoral, no crackles or wheezes. Chest Wall: Decrease expansion with deep inspiration no tenderness and no deformity was found on exam, no costochondral pain or discomfort. Heart: Regular rate and rhythm, S1, S2 normal, no murmur, rub or gallop. Back: Symmetric, no curvature, ROM normal, no CVA tenderness. Abdomen: Soft distended with mild tenderness the midepigastric area with hyper bowel sound no rebound or rigidity slight hernia felt around umbilical area. Extremities: Extremities normal, atraumatic, no cyanosis or edema. Pulses: 2+ and symmetric. Skin: Skin color, texture, tugor normal, no rashes or lesions. Neurologic: Alert oriented x3 cranial nerves II through XII intact, no motor d eficit, no abnormal balance or gait. Results CBC & Chem 7: 03/15/20 07:28 03/15/20 07:28 Labs: Abnormal Lab Results - Last 24 Hours (Table) 03/15/20 03/15/20 Range/Units 07:28 07:28 Sodium 136 L (137-145) mmol/L Carbon Dioxide 21 L (22-30) mmol/L Glucose 106 H (74-99) mg/dL Ur Specific [place] 1.037 H (1.001-1.035) Urine Ketones Trace H (Negative) Thrombosis Risk Factor Assmnt - DVT/VTE Prophylaxis DVT/VTE Prophylaxis: Pharmacologic Prophylaxis ordered, Mechanical Prophylaxis ordered - Choose All That Apply Any of the Below Risk Factors Present?: Yes Each Factor Represents 1 point: Obesity (BMI >25) Other Risk Factors: Yes Each Risk Factor Represents 3 Points: Age 75 years or older Other congenital or acquired thrombophilia - If yes, enter type in comment: No Thrombosis Risk Factor Assessment Total Risk Factor Score: 4 Thrombosis Risk Factor Assessment Level: Moderate Risk Assessment and Plan Assessment: 1 severe abdominal pain: Combination of partial obstruction along with incarcerated hernia, patient will be seen neurosurgery, continue nothing by mouth, repeat plain film and lab in the morning continue conservative management for now. 2 small bowel obstruction: With previous history of bowel obstruction so far no need for surgery and abdomen is very soft continue conservative management hopefully medical management will work this time. 3 abdominal hernia with questionable of incarceration: Surgical consultation is appreciated if patient will require any intervention at this point. 4 CAD: Post angioplasty and stent placement has been doing well on metoprolol and simvastatin continue medication. 5 history of asthma: Remain on Singulair along with rescue inhaler. 6 hypertension: Remain on amlodipine 5 mg a day metoprolol 12.5 mg twice a day. 7 hyperlipidemia: Remain on simvastatin 20 mg a day. 8 GI prophylaxis: Remain on omeprazole 40 mg daily. 9 history of hepatitis C: Not active currently. 10 DVT prophylaxis: Patient be on heparin subcutaneous. 11 GI prophylaxis: Continue patient on Protonix. CODE STATUS: Full code. Admit patient to inpatient status for more than 2 night stay.
[2020-03-16] MEDS: SODIUM CHLORIDE 0.9% 1,000 ML IV SCH ×2 (04:46→17:44)
[2020-03-16] MEDS: ONDANSETRON 4 MG/2 ML VIAL IVP PRN (05:22)
[2020-03-16] MEDS: KETOROLAC 15 MG/ML 1 ML VIAL IVP PRN (05:26)
[2020-03-16] MEDS ORDERED: ASPIRIN 325 MG TAB PO STA (09:04)
[2020-03-16] MEDS: METOPROLOL TARTRATE 12.5 MG TAB PO SCH ×2 (09:19→20:58)
[2020-03-16] MEDS: PANTOPRAZOLE 40 MG/10 ML VIAL IV SCH (09:19)
[2020-03-16] MEDS: amLODIPine 5 MG TAB PO SCH (09:20)
[2020-03-16 09:32] LABS: Basophils # (A) 0.1 k/uL (0-0.2); Basophils % (A) 1 %; Eosinophils # (A) 0.4 k/uL (0-0.7); Eosinophils % (A) 4 %; HCT 44.6 % (39.0-53.0); HGB 14.6 gm/dL (13.0-17.5); Lymphocytes % (A) 20 %; MCHC 32.8 g/dL (31.0-37.0); MCV 94.4 fL (80.0-100.0); Mean Platelet Volume 7.3; Monocytes # (A) 0.6 k/uL (0-1.0); Monocytes % (A) 6 %; Neutrophils # (A) 6.4 k/uL (1.3-7.7); Neutrophils % (A) 65 %; Platelet Count 225 k/uL (150-450); RBC 4.72 m/uL (4.30-5.90); RDW 13.2 % (11.5-15.5); WBC 9.8 k/uL (3.8-10.6)
[2020-03-16 09:41] LABS: Calcium 7.9 mg/dL (8.4-10.2); Potassium 4.8 mmol/L (3.5-5.1)
--- NOTE | 2020-03-16 10:19 | P.PN ---
Subjective Progress Note Date: 03/16/20 Principal diagnosis: Small bowel obstruction This is 84 years old male who presented to the hospital with abdominal pain patient was found to have small bowel obstruction and said that overnight he had passed flatus multiple times and this morning had small bowel movement witnessed by nursing staff. Patient stated that his abdominal symptoms improved but this morning 30 minutes prior to examination he started having left-sided chest pain located to his left breast deep inside describe it as heaviness did not similar to prior heart attack as patient had multiple heart attacks in the past and stated that it's not the same intensity and not the same description but patient is concerned vital signs stable patient is denying shortness breath abdominal pain dizziness lightheadedness or blurry vision diet denying being diaphoretic or anxious Objective - Vital Signs Vital signs: Vital Signs Temp 98.2 F 03/16/20 07:20 Pulse 61 03/16/20 08:48 Resp 16 03/16/20 08:48 BP 150/73 03/16/20 08:48 Pulse Ox 96 03/16/20 08:48 Intake & Output 03/15/20 03/16/20 03/16/20 18:59 06:59 18:59 Output Total 300 Balance -300 Weight 74.843 kg Output: Urine 300 Other: Voiding Method Toilet # Voids 1 1 - Exam Gen.: in stated age, no acute distress Heart: Normal S1-S2 Lungs: Clear to auscultation bilaterally Abdomen: Soft, mild distention without significant tenderness, positive bowel sounds in all 4 quadrant no guarding or rebound Skin: No new rash Psych: Alert and oriented 3 Neuro: No focal deficit - Labs CBC & Chem 7: 03/16/20 09:15 03/16/20 09:15 Labs: Abnormal Lab Results - Last 24 Hours (Table) 03/15/20 03/16/20 Range/Units 07:28 09:15 Sodium 136 L (137-145) mmol/L Chloride 108 H (98-107) mmol/L Glucose 65 L (74-99) mg/dL Calcium 7.9 L (8.4-10.2) mg/dL Ur Specific [place] 1.037 H (1.001-1.035) Urine Ketones Trace H (Negative) Assessment and Plan Assessment: 1. New onset chest pain. 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 Patient is high risk for angina specially with his small bowel obstruction and stressful condition. Will follow-up with cardiology recommendation. 2. Small bowel obstruction. Seems to be partial and resolving I would like to keep patient nothing by mouth consider advancing diet after evaluation by cardiology with follow-up with general surgery recommendation encourage ambulation. 3. Coronary artery disease management as above. 4. Mild hyponatremia likely nutritional will encourage oral intake once patient is cleared by cardiology. 5. Borderline blood pressure patient was taken off multiple blood pressure medication in the past I would like to avoid nitro drip at this point and follow-up with cardiology recommendation continue monitoring hemodynamic closely. 6. Hyperlipidemia continue statin. 7. Mild hypoglycemia this morning likely for being nothing by mouth and we will consider switching from IV fluid to D5 normal saline if patient needs to be state and by mouth. Plan discussed with nursing staff at the bedside and with cardiology
--- NOTE | 2020-03-16 12:01 | P.PN ---
Subjective Progress Note Date: 03/16/20 Principal diagnosis: Small bowel obstruction The patient is seen on rounds. He had been doing well overnight. This morning he had a soft brown/liquidy bowel movement. He's passed small amounts of flatus. He's complaining of recurrent nausea and pain. He was also having left -sided chest pain. The patient's going to be evaluated by cardiology. He is having no vomiting. Feeling slightly more distended. Objective - Vital Signs Vital signs: Vital Signs Temp 98.2 F 03/16/20 07:20 Pulse 61 03/16/20 08:48 Resp 16 03/16/20 08:48 BP 150/73 03/16/20 08:48 Pulse Ox 96 03/16/20 08:48 Intake & Output 03/15/20 03/16/20 03/16/20 18:59 06:59 18:59 Output Total 300 Balance -300 Weight 74.843 kg Output: Urine 300 Other: Voiding Method Toilet Toilet # Voids 1 1 - Constitutional Constitutional Comment(s): Appears uncomfortable General appearance: Present: cooperative - Respiratory Respiratory: bilateral: CTA - Cardiovascular Rhythm: regular - Gastrointestinal General gastrointestinal: Present: absent bowel sounds, distended (Softly distended with tympany to percussion. It's more distended than yesterday evening), tenderness (Mild nonspecific tenderness) - Labs CBC & Chem 7: 03/16/20 09:15 03/16/20 09:15 Labs: Abnormal Lab Results - Last 24 Hours (Table) 03/16/20 Range/Units 09:15 Sodium 136 L (137-145) mmol/L Chloride 108 H (98-107) mmol/L Glucose 65 L (74-99) mg/dL Calcium 7.9 L (8.4-10.2) mg/dL Assessment and Plan (1) Small bowel obstruction Current Visit: Yes Status: Acute Code(s): K56.609 - UNSP INTESTNL OBST, UNSP TO PARTIAL VERSUS COMPLETE OBST SNOMED Code(s): 289298549 (2) Abdominal pain Current Visit: No Status: Acute Code(s): R10.9 - UNSPECIFIED ABDOMINAL PAIN SNOMED Code(s): 40089106 (3) Hernia Current Visit: Yes Status: Chronic Code(s): K46.9 - UNSPECIFIED ABDOMINAL HERNIA WITHOUT OBSTRUCTION OR GANGRENE SNOMED Code(s): 15947281 (4) Chest pain Current Visit: No Status: Acute Code(s): R07.9 - CHEST PAIN, UNSPECIFIED SNOMED Code(s): 61925667 (5) Elevated blood pressure reading Current Visit: No Status: Acute Code(s): R03.0 - ELEVATED BLOOD-PRESSURE READING, W/O DIAGNOSIS OF HTN SNOMED Code(s): 35095521 Plan: The patient's not feeling as well as yesterday. He'll be continued nothing by mouth. He's complaining of feeling weak. He hasn't been eating much so I'll change IV over to D5 normal saline. Cardiology will evaluate the patient. I recheck x-rays in the morning. Serial exams. I had a discussion with patient and his . We'll attempt to manage his nonsurgically.
[2020-03-16] MEDS: DEXTROSE 5%-0.9% NACL 1,000 ML IV SCH (17:46)
--- NOTE | 2020-03-16 21:34 | P.CRDCN ---
History of Present Illness Consult date: 03/16/20 Reason for Consult (text): Chest pain History of present illness: HISTORY OF PRESENTING ILLNESS This is a pleasant 84-year-old male past medical history significant for GI bleed, hypertension, hyperlipidemia, chronic liver disease, hepatitis C, bowel obstructions, coronary artery disease. He initially presented to the hospital yesterday secondary to severe abdominal pain and was found to have small bowel obstruction. He has had multiple admissions for small bowel obstruction past with significant adhesions noted in the past. He does have a significant history of coronary artery disease status post angioplasty with prior PCI to his RCA in 2018. We will consult it because he developed some left-sided chest discomfort. He has been burping frequently and admits to some improvement with burping. It lasted a few hours however now is improved. He only had 1 troponin drawn which was normal. The rest of his labs reveal a sodium 136, creatinine 1.15, normal white blood cell count and normal hemoglobin. Current cardiac medications include amlodipine 5 mg daily, Lopressor 12.5 mg twice a day REVIEW OF SYSTEMS At the time of my exam: CONSTITUTIONAL: Denies fever or chills. CARDIOVASCULAR: +chest pain, no shortness of breath, orthopnea, PND or palpitations. RESPIRATORY: Denies cough. GASTROINTESTINAL: +abdominal pain, no diarrhea, constipation, nausea or vomiting. MUSCULOSKELETAL: Denies myalgias. NEUROLOGIC: Denies numbness, tingling or weakness. ENDOCRINE: Denies fatigue, weight change, polydipsia or polyurina. GENITOURINARY: Denies burning, hematuria or urgency with micturation. HEMATOLOGIC: Denies history of anemia or bleeding. PHYSICAL EXAMINATION Blood pressure 153/73 heart rate 56 afebrile and maintaining oxygen saturation on room air. CONSTITUTIONAL: No apparent distress. HEENT: Head is normocephalic. Pupils are equal, round. Sclerae anicteric. Mucous membranes of the mouth are moist. No JVD. No carotid bruit. CHEST EXAMINATION: Lungs are clear to auscultation. No chest wall tenderness is noted on palpation or with deep breathing. HEART EXAMINATION: Regular rate and rhythm. S1, S2 heard. No murmurs, gallops or rub. ABDOMEN: Soft, nontender. Positive bowel sounds. EXTREMITIES: 2+ peripheral pulses, no lower extremity edema and no calf tenderness. NEUROLOGIC EXAMINATION: Patient is awake, alert and oriented x3. ASSESSMENT 1. Atypical chest pain which improved with burping and not resolved. Suspect related to GI issues and I'll obstruction. 2. History of coronary artery disease status post PCI of his RCA in 2018 3. Essential hypertension, mildly elevated likely related to pain 4. Small bowel obstruction PLAN Chest pain has improved and does not appear cardiac in nature, suspect related to GI issues improved with burping. We will get a second troponin for completeness. Continue with pain control and antihypertensives with amlodipine 5 mg daily and Lopressor 12.5 mg twice a day. Aspirin should be continued through surgery however if surgeons deem possible surgery to be complex and complicated with prior adhesions noted, may defer. Ideally place patient back on aspirin as soon as possible. Patient on simvastatin at home and may restart when able. No further recommendations from cardiology. No further cardiac workup necessary at this time. Please call with questions. Past Medical History Past Medical History: Asthma, Coronary Artery Disease (CAD), Chest Pain / Angina, GERD/Reflux, GI Bleed, Hearing Disorder / Deafness, Hyperlipidemia, Hypertension, Liver Disease, Osteoarthritis (OA) Additional Past Medical History / Comment(s): Recurrent SBO d/t adhesions with conservative treatment and surgical treatment, mild leaky heart valve, bleeding ulcer/lower GI bleed many years ago with exsanguination and stayed in ICU/had transfusions then another less severe lower GI bleed a few years later, upper GI bleed, duodenal ulcer, hiatal hernia, hepatitis C d/t blood transfusion-2nd treatment successful, some recent short term memory issues/tremors in hands and balance issues past few months being worked up, constipation, diverticulitis and past pre cancerous polypectomies-last colonoscopy was normal in 2018, low back pain, L shoulder pain, gout-saw dial printer in past, 06/2018 shingelles, [place] [facility] bilaterally, ventral hernia. History of Any Multi-Drug Resistant Organisms: None Reported Past Surgical History: Bowel Resection, Cholecystectomy, Heart Catheterization With Stent, Orthopedic Surgery Additional Past Surgical History / Comment(s): 06/2018 PCI with stent, 1999 PCI with 2 stents, laparotomy with lysis of adhesions, R rotator cuff repair, R knee arthroscopy, R upper chest lipoma removed, bilateral cataract removals/lens implants, EGD and colonoscopies with pre cancerous polypectomies-last colonoscopy in 2018 was normal per pt. Past Anesthesia/Blood Transfusion Reactions: Blood Transfusion Reaction Additional Past Anesthesia/Blood Transfusion Reaction / Comment(s): CONTRACTED HEP C FROM A BLOOD TRANSFUSION 35-40 YEARS AGO. Date of Last Stent Placement:: JUN 2018 Smoking Status: Former smoker - Past Family History Mother Family Medical History: Cancer Additional Family Medical History / Comment(s): Other at age 80 from acute kidney injury following surgery. Patient had bladder suspension surgery and she developed to have possibly uterine cancer however she ended up with renal failure refused hemodialysis Father Family Medical History: Cancer, Deep Vein Thrombosis (DVT), Pulmonary Embolus Additional Family Medical History / Comment(s): LUNG CANCER. Father in his mid 60s due to blood clots with history of bladder cancer . The cause of pulmonary embolism. Brother(s) Family Medical History: Cancer, Coronary Artery Disease (CAD) Additional Family Medical History / Comment(s): Patient has one brother with history of non-Hodgkin's lymphoma diagnosed 15 YEARS AGO. He does not have any sisters. He has adult children with no major medical problem basically 2 sons and a daughter. Medications and Allergies Home Medications Medication Instructions Recorded Confirmed Type Simvastatin [Zocor] 20 mg PO HS 02/23/14 03/15/20 History Omeprazole 40 mg PO DAILY 02/14/19 03/15/20 History Aspirin EC [Ecotrin Low Dose] 81 mg PO DAILY 02/23/20 03/15/20 History Calcium Citrate/Vitamin D3 1 tab PO DAILY 02/23/20 03/15/20 History [Citracal + D Maximum Caplet] Cyanocobalamin (Vitamin B-12) 1,000 mcg PO MOWEFR 02/23/20 03/15/20 History [Vitamin B-12] Metoprolol Tartrate [Lopressor] 12.5 mg PO BID 02/23/20 03/15/20 History Vitamin B Complex 1 cap PO DAILY 02/23/20 03/15/20 History Montelukast Sodium [Singulair] 10 mg PO HS 03/15/20 03/15/20 History amLODIPine [Norvasc] 5 mg PO DAILY 03/15/20 03/15/20 History Allergies Allergy/AdvReac Type Severity Reaction Status Date / Time Penicillins Allergy Rash/Hives Verified 03/15/20 07:43 prednisone Allergy Rash/Hives Verified 03/15/20 07:43 Physical Exam Vitals: Vital Signs Temp Pulse Resp BP BP Pulse Ox 03/16/20 20:56 98.6 F 56 L 16 153/73 95 03/16/20 16:00 68 16 03/16/20 13:46 97.9 F 68 16 157/68 96 03/16/20 08:48 61 16 150/73 96 03/16/20 08:00 61 16 03/16/20 07:20 98.2 F 61 16 131/76 96 03/16/20 01:06 98.2 F 65 16 127/69 97 Intake and Output 03/16/20 03/16/20 03/16/20 06:59 14:59 22:59 Intake Total 1200 Output Total 300 300 Balance -300 1200 -300 Intake: Intake, IV Titration 800 Amount Sodium Chloride 0.9% 1, 800 000 ml @ 100 mls/hr IV . Q10H [facility] Rx#:[id number] Oral 400 Output: Urine 300 300 Other: Voiding Method Toilet Toilet Toilet # Voids 1 Results 03/16/20 09:15 03/16/20 09:15 Cardiac Enzymes 03/16/20 Range/Units 09:15 Troponin I <0.012 (0.000-0.034) ng/mL CBC 03/16/20 Range/Units 09:15 WBC 9.8 (3.8-10.6) k/uL RBC 4.72 (4.30-5.90) m/uL Hgb 14.6 (13.0-17.5) gm/dL Hct 44.6 (39.0-53.0) % Plt Count 225 (150-450) k/uL Comprehensive Metabolic Panel 03/16/20 Range/Units 09:15 Sodium 136 L (137-145) mmol/L Potassium 4.8 (3.5-5.1) mmol/L Chloride 108 H (98-107) mmol/L Carbon Dioxide 22 (22-30) mmol/L BUN 15 (9-20) mg/dL Creatinine 1.15 (0.66-1.25) mg/dL Glucose 65 L (74-99) mg/dL Calcium 7.9 L (8.4-10.2) mg/dL Current Medications Generic Name Dose Route Start Last Admin Trade Name Freq PRN Reason Stop Dose Admin Acetaminophen 650 mg 03/15/20 09:48 Tylenol Tab PO Q6HR PRN Mild Pain or Fever > 100.5 Amlodipine Besylate 5 mg 03/16/20 09:00 03/16/20 09:20 Norvasc PO 5 mg DAILY [facility] Administration Sodium Chloride 1,000 mls @ 100 mls/hr 03/15/20 10:00 03/16/20 17:44 Saline 0.9% IV Not Given .Q10H [facility] Dextrose/Sodium Chloride 1,000 mls @ 100 mls/hr 03/16/20 14:30 03/16/20 17:46 Dextrose 5%-Ns Iv Soln IV 100 mls/hr .Q10H [facility] Administration Ibuprofen 400 mg 03/15/20 09:48 Motrin PO Q6HR PRN Mild Pain or Fever > 100.5 Ketorolac Tromethamine 15 mg 03/15/20 09:48 03/16/20 05:26 Toradol IVP 03/18/20 09:49 15 mg Q6HR PRN Administration Moderate Pain Metoprolol Tartrate 12.5 mg 03/15/20 21:00 03/16/20 20:58 Lopressor PO 12.5 mg BID [facility] Administration Morphine Sulfate 4 mg 03/15/20 09:48 Morphine Sulfate (Inj) IV Q4HR PRN Severe Pain Naloxone HCl 0.2 mg 03/15/20 09:48 Narcan IV Q2M PRN Opioid Reversal Ondansetron HCl 4 mg 03/15/20 09:48 03/16/20 05:22 Zofran IVP 4 mg Q8HR PRN Administration Nausea And Vomiting Pantoprazole Sodium 40 mg 03/16/20 09:00 03/16/20 09:19 Protonix IV 40 mg DAILY [facility] Administration Intake and Output 03/16/20 03/16/20 03/16/20 06:59 14:59 22:59 Intake Total 1200 Output Total 300 300 Balance -300 1200 -300 Intake: Intake, IV Titration 800 Amount Sodium Chloride 0.9% 1, 800 000 ml @ 100 mls/hr IV . Q10H [facility] Rx#:[id number] Oral 400 Output: Urine 300 300 Other: Voiding Method Toilet Toilet Toilet # Voids 1 03/16/20 09:15 03/16/20 09:15
[2020-03-17] MEDS: SODIUM CHLORIDE 0.9% 1,000 ML IV SCH ×3 (01:59→20:28)
[2020-03-17] MEDS: DEXTROSE 5%-0.9% NACL 1,000 ML IV SCH ×3 (01:59→20:27)
--- NOTE | 2020-03-17 06:57 | XR ---
EXAMINATION TYPE: XR abdomen 2V DATE OF EXAM: 03/17/2020 CLINICAL HISTORY: Pain, partial bowel obstruction. TECHNIQUE: Supine and upright views of the abdomen are obtained. COMPARISON: CT abdomen and pelvis 2 days ago. FINDINGS: Scattered gas is seen in non-distended small bowel loops. Gas is seen in slightly more pro minent small bowel loops left lower quadrant. Few scattered air-fluid levels lower abdomen on the upr ight image. Gas and fecal material is seen in non-distended colon along the periphery. Cholecystectom y clips are redemonstrated. Developing left basilar opacity favors atelectasis. No pneumoperitoneum. Osseous structures are intact. IMPRESSION: Overall nonspecific bowel gas pattern remains present. Possible partial mid to distal sm all bowel obstruction cannot be excluded. No significant interval progression noted.
[2020-03-17] MEDS: METOPROLOL TARTRATE 12.5 MG TAB PO SCH ×2 (07:56→20:28)
[2020-03-17] MEDS: PANTOPRAZOLE 40 MG/10 ML VIAL IV SCH (07:56)
[2020-03-17] MEDS: KETOROLAC 15 MG/ML 1 ML VIAL IVP PRN ×2 (07:56→20:32)
[2020-03-17] MEDS: amLODIPine 5 MG TAB PO SCH (07:56)
[2020-03-17] MEDS: ONDANSETRON 4 MG/2 ML VIAL IVP PRN ×2 (07:57→20:32)
--- NOTE | 2020-03-17 10:22 | P.PN ---
Subjective Progress Note Date: 03/17/20 Principal diagnosis: Small bowel obstruction Chest pain has resolved completely. Patient still complaining of abdominal cramps but had large bowel movement this morning that started as solid and then down to be diarrhea. Patient in no acute distress asking to be started on diet this morning. Objective - Vital Signs Vital signs: Vital Signs Temp 98.0 F 03/17/20 07:11 Pulse 55 L 03/17/20 07:18 Resp 20 03/17/20 07:18 BP 142/71 03/17/20 07:11 Pulse Ox 95 03/17/20 07:11 Intake & Output 03/16/20 03/17/20 03/17/20 18:59 06:59 18:59 Intake Total 1200 0 Output Total 300 300 Balance 900 0 -300 Intake: Intake, IV Titration 800 Amount Sodium Chloride 0.9% 1, 800 000 ml @ 100 mls/hr IV . Q10H [facility] Rx#:[id number] Oral 400 0 Output: Urine 300 300 Other: Voiding Method Toilet Toilet Toilet # Voids 1 1 1 - Exam Gen.: in stated age, no acute distress Heart: Normal S1-S2 Lungs: Clear to auscultation bilaterally Abdomen: Soft, mild distention without significant tenderness, positive bowel sounds in all 4 quadrant no guarding or rebound Skin: No new rash Psych: Alert and oriented 3 Neuro: No focal deficit - Labs CBC & Chem 7: 03/16/20 09:15 03/16/20 09:15 Assessment and Plan Assessment: 1. New onset chest pain. Chest pain profile and EKG within acceptable range cardiology recommended continuation of GI symptoms management and continue aspirin at this point with cardioprotective medication. Patient currently is pain-free. 2. Small bowel obstruction. Seems to be partial and resolving patient had large bowel movement this morning starting solid and turn in to be liquidy at the very and passing flatus and I would like to start patients on clear liquid diet encourage ambulation and follow-up with general surgery recommendation continue conservative management at this point and repeat blood work in the morning in preparation for discharge based on clinical progress. 4. Mild hyponatremia likely nutritional will encourage oral intake once patient is cleared by cardiology. 5. Borderline blood pressure patient was taken off multiple blood pressure medication in the past I would like to avoid nitro drip at this point and follow-up with cardiology recommendation continue monitoring hemodynamic closely. 6. Hyperlipidemia continue statin. 7. Mild hypoglycemia patient was started on 100 mL of fluid of D5 normal saline by surgery I would like to discontinue IV fluid once patient is tolerating liquid diet and avoid fluid overloaded situation. Plan discussed with nursing staff
--- NOTE | 2020-03-17 11:42 | P.PN ---
Subjective Progress Note Date: 03/17/20 Principal diagnosis: Small bowel obstruction The patient is feeling better today. Pain has resolved including chest pain. He had a large more formed bowel movement today. No nausea or vomiting. He was given something for liquids this morning. He tolerated it without difficulty. Objective - Vital Signs Vital signs: Vital Signs Temp 98.0 F 03/17/20 07:11 Pulse 55 L 03/17/20 07:18 Resp 20 03/17/20 07:18 BP 142/71 03/17/20 07:11 Pulse Ox 95 03/17/20 07:11 Intake & Output 03/16/20 03/17/20 03/17/20 18:59 06:59 18:59 Intake Total 1200 0 Output Total 300 300 Balance 900 0 -300 Intake: Intake, IV Titration 800 Amount Sodium Chloride 0.9% 1, 800 000 ml @ 100 mls/hr IV . Q10H [facility] Rx#:[id number] Oral 400 0 Output: Urine 300 300 Other: Voiding Method Toilet Toilet Toilet # Voids 1 1 1 - Constitutional General appearance: Present: average body habitus, no acute distress - Respiratory Respiratory: bilateral: CTA - Gastrointestinal General gastrointestinal: Present: decreased bowel sounds, distended (Mildly distended), tenderness (Minimal left-sided tenderness without guarding or rebound) - Labs CBC & Chem 7: 03/16/20 09:15 03/16/20 09:15 Assessment and Plan (1) Small bowel obstruction Current Visit: Yes Status: Acute Code(s): K56.609 - UNSP INTESTNL OBST, UNSP TO PARTIAL VERSUS COMPLETE OBST SNOMED Code(s): 084308343 (2) Abdominal pain Current Visit: No Status: Acute Code(s): R10.9 - UNSPECIFIED ABDOMINAL PAIN SNOMED Code(s): 67754381 (3) Hernia Current Visit: Yes Status: Chronic Code(s): K46.9 - UNSPECIFIED ABDOMINAL HERNIA WITHOUT OBSTRUCTION OR GANGRENE SNOMED Code(s): 59579344 (4) Chest pain Current Visit: No Status: Acute Code(s): R07.9 - CHEST PAIN, UNSPECIFIED SNOMED Code(s): 40049096 (5) Elevated blood pressure reading Current Visit: No Status: Acute Code(s): R03.0 - ELEVATED BLOOD-PRESSURE READING, W/O DIAGNOSIS OF HTN SNOMED Code(s): 95202883 Plan: Clinically the patient is improving. The abdominal series done today was nonspecific. Air and stool throughout the GI tract. We'll slowly advance the diet as tolerated.
[2020-03-18] MEDS: DEXTROSE 5%-0.9% NACL 1,000 ML IV SCH (05:24)
[2020-03-18 08:07] VITALS: BP 134/73; PULSE 57; RESP 18; TEMP 98.4
[2020-03-18] MEDS: METOPROLOL TARTRATE 12.5 MG TAB PO SCH (09:00)
[2020-03-18] MEDS ORDERED: PANTOPRAZOLE 40 MG TABLET PO SCH (09:00)
[2020-03-18] MEDS: amLODIPine 5 MG TAB PO SCH (09:00)
[2020-03-18] MEDS: SODIUM CHLORIDE 0.9% 1,000 ML IV SCH (09:00)
[2020-03-18 09:34] LABS: Basophils # (A) 0.1 k/uL (0-0.2); Basophils % (A) 1 %; Eosinophils # (A) 0.5 k/uL (0-0.7); Eosinophils % (A) 5 %; HCT 42.4 % (39.0-53.0); HGB 13.7 gm/dL (13.0-17.5); Lymphocytes # (A) 1.7 k/uL (1.0-4.8); Lymphocytes % (A) 20 %; MCH 30.2 pg (25.0-35.0); MCHC 32.3 g/dL (31.0-37.0); MCV 93.5 fL (80.0-100.0); Mean Platelet Volume 7.3; Monocytes # (A) 0.6 k/uL (0-1.0); Monocytes % (A) 7 %; Neutrophils # (A) 5.7 k/uL (1.3-7.7); Neutrophils % (A) 64 %; Platelet Count 219 k/uL (150-450); RBC 4.53 m/uL (4.30-5.90); RDW 13.4 % (11.5-15.5); WBC 8.9 k/uL (3.8-10.6)
[2020-03-18 09:48] LABS: Albumin 3.6 g/dL (3.5-5.0); Calcium 8.4 mg/dL (8.4-10.2); Potassium 4.1 mmol/L (3.5-5.1); Total Bilirubin 0.8 mg/dL (0.2-1.3); Total Protein 5.9 g/dL (6.3-8.2)
--- NOTE | 2020-03-18 12:46 | P.PN ---
Subjective Progress Note Date: 03/18/20 Principal diagnosis: Small bowel obstruction The patient is seen on rounds. He's tolerating a diet however getting full very quickly. Denies any chest pain, nausea, vomiting. Passing flatus. He had multiple bowel movements chest her today. Objective - Vital Signs Vital signs: Vital Signs Temp 98.4 F 03/18/20 07:00 Pulse 57 L 03/18/20 07:00 Resp 18 03/18/20 07:00 BP 134/73 03/18/20 07:00 Pulse Ox 95 03/18/20 07:00 Intake & Output 03/17/20 03/18/20 03/18/20 18:59 06:59 18:59 Intake Total 960 300 Output Total 300 100 Balance 660 300 -100 Intake: Oral 960 300 Output: Urine 300 100 Other: Voiding Method Toilet Toilet Toilet # Voids 4 1 # Bowel Movements 1 - Constitutional General appearance: Present: cooperative, no acute distress - Gastrointestinal General gastrointestinal: Present: decreased bowel sounds, distended (Still somewhat distended but improved from Wednesday.) - Labs CBC & Chem 7: 03/18/20 09:17 03/18/20 09:17 Labs: Abnormal Lab Results - Last 24 Hours (Table) 03/18/20 Range/Units 09:17 Sodium 136 L (137-145) mmol/L Glucose 102 H (74-99) mg/dL Total Protein 5.9 L (6.3-8.2) g/dL Assessment and Plan (1) Small bowel obstruction Current Visit: Yes Status: Acute Code(s): K56.609 - UNSP INTESTNL OBST, UNSP TO PARTIAL VERSUS COMPLETE OBST SNOMED Code(s): 071987540 (2) Abdominal pain Current Visit: No Status: Acute Code(s): R10.9 - UNSPECIFIED ABDOMINAL PAIN SNOMED Code(s): 08603665 (3) Hernia Current Visit: Yes Status: Chronic Code(s): K46.9 - UNSPECIFIED ABDOMINAL HE RNIA WITHOUT OBSTRUCTION OR GANGRENE SNOMED Code(s): 68635737 (4) Chest pain Current Visit: No Status: Acute Code(s): R07.9 - CHEST PAIN, UNSPECIFIED SNOMED Code(s): 10008679 (5) Elevated blood pressure reading Current Visit: No Status: Acute Code(s): R03.0 - ELEVATED BLOOD-PRESSURE READING, W/O DIAGNOSIS OF HTN SNOMED Code(s): 63572519 Plan: He's progressing slowly. At present he is surgically stable for discharge. If he would develop recurrent pain, nausea or vomiting at recommend a small bowel follow-through series.
== END 2020-03-18 14:11 | disposition home or self-care (01) | DRG 389 ==
LOC: EC 06:33 → 4SSUR 11:13
PROVIDERS: ADMIT Internal Medicine Geriatric Medicine; ATTEND Internal Medicine Geriatric Medicine
DX: K56.600 Partial intestinal obstruction, unspecified as to cause (principal); E87.1 Hypo-osmolality and hyponatremia; E16.2 Hypoglycemia, unspecified; E78.5 Hyperlipidemia, unspecified; H91.90 Unspecified hearing loss, unspecified ear; I10 Essential (primary) hypertension; I25.10 Atherosclerotic heart disease of native coronary artery without angina pectoris; J45.909 Unspecified asthma, uncomplicated; K43.2 Incisional hernia without obstruction or gangrene; K42.9 Umbilical hernia without obstruction or gangrene; B19.20 Unspecified viral hepatitis C without hepatic coma; K21.9 Gastro-esophageal reflux disease without esophagitis; K44.9 Diaphragmatic hernia without obstruction or gangrene; M10.9 Gout, unspecified; M19.90 Unspecified osteoarthritis, unspecified site; R25.1 Tremor, unspecified; R07.89 Other chest pain; R74.8 Abnormal levels of other serum enzymes; K57.90 Diverticulosis of intestine, part unspecified, without perforation or abscess without bleeding; I25.2 Old myocardial infarction; K76.9 Liver disease, unspecified; Z79.82 Long term (current) use of aspirin; Z79.899 Other long term (current) drug therapy; Z87.891 Personal history of nicotine dependence; Z95.5 Presence of coronary angioplasty implant and graft; Z96.1 Presence of intraocular lens; Z98.42 Cataract extraction status, left eye; Z98.41 Cataract extraction status, right eye; Z90.49 Acquired absence of other specified parts of digestive tract; Z87.11 Personal history of peptic ulcer disease; Z88.0 Allergy status to penicillin; Z88.8 Allergy status to other drugs, medicaments and biological substances; Z87.19 Personal history of other diseases of the digestive system; Z98.890 Other specified postprocedural states; Z86.19 Personal history of other infectious and parasitic diseases; Z80.1 Family history of malignant neoplasm of trachea, bronchus and lung; Z82.49 Family history of ischemic heart disease and other diseases of the circulatory system; Z80.52 Family history of malignant neoplasm of bladder; Z80.49 Family history of malignant neoplasm of other genital organs; Z80.7 Family history of other malignant neoplasms of lymphoid, hematopoietic and related tissues
CPT/HCPCS: 36415; 74019; 74177; 80048; 80053; 81003; 82150; 83605; 83690; 84484; 85025; 85610; 85730; 93005; 96361; 96374; 96375; 99285

== ENCOUNTER 2020-04-03 12:31 | Emergency (ER) | payer MEDICARE ==
[2020-04-03 12:38] VITALS: TEMP 98.2
[2020-04-03] MEDS ORDERED: SODIUM CHLORIDE 0.9% 500 ML 500 ML IV STA (13:21)
[2020-04-03] MEDS ORDERED: ONDANSETRON 4 MG/2 ML VIAL IVP STA (13:21)
[2020-04-03] MEDS ORDERED: MORPHINE SULFATE 2 MG/ML SYRINGE IVP STA (13:21)
--- NOTE | 2020-04-03 13:26 | ED ---
General Adult HPI - General Chief complaint: Abdominal Pain Stated complaint: GI Problems Time Seen by Provider: 04/03/20 12:45 Source: family Mode of arrival: wheelchair Limitations: no limitations - History of Present Illness Initial comments: 84-year-old male presents to the emergency department today with complaints of abdominal cramping and multiple episodes of liquid stool, onset 3:00 this morning. Associated symptoms include dizziness and nausea. Patient states he was recently discharged home after being hospitalized for a partial small bowel obstruction. States he was having regular soft formed bowel movements up until today. Patient reports consuming a larger than usual meal on Wednesday. Patient denies any recent rash, fever, chills, cough, shortness of breath, chest pain, vomiting, constipation, back pain, numbness, tingling, weakness, hematuria, dysuria, urinary urgency, urinary frequency, headache, visual changes, or any other complaints. - Related Data Home Medications Medication Instructions Recorded Confirmed Simvastatin [Zocor] 20 mg PO HS 02/23/14 03/15/20 Omeprazole 40 mg PO DAILY 02/14/19 03/15/20 Aspirin EC [Ecotrin Low Dose] 81 mg PO DAILY 02/23/20 03/15/20 Calcium Citrate/Vitamin D3 1 tab PO DAILY 02/23/20 03/15/20 [Citracal + D Maximum Caplet] Cyanocobalamin (Vitamin B-12) 1,000 mcg PO MOWEFR 02/23/20 03/15/20 [Vitamin B-12] Metoprolol Tartrate [Lopressor] 12.5 mg PO BID 02/23/20 03/15/20 Vitamin B Complex 1 cap PO DAILY 02/23/20 03/15/20 Montelukast Sodium [Singulair] 10 mg PO HS 03/15/20 03/15/20 amLODIPine [Norvasc] 5 mg PO DAILY 03/15/20 03/15/20 Previous Rx's Medication Instructions Recorded Pantoprazole [Protonix] 40 mg PO DAILY #30 tablet. 03/18/20 Allergies Allergy/AdvReac Type Severity Reaction Status Date / Time Penicillins Allergy Rash/Hives Verified 04/03/20 12:35 prednisone Allergy Rash/Hives Verified 04/03/20 12:35 Review of Systems ROS Statement: Those systems with pertinent positive or pertinent negative responses have been documented in the HPI. ROS Other: All systems not noted in ROS Statement are negative. Past Medical History Past Medical History: Asthma, Coronary Artery Disease (CAD), Chest Pain / Angina, GERD/Reflux, GI Bleed, Hearing Disorder / Deafness, Hyperlipidemia, Hypertension, Liver Disease, Osteoarthritis (OA) Additional Past Medical History / Comment(s): Recurrent SBO d/t adhesions with conservative treatment and surgical treatment, mild leaky heart valve, bleeding ulcer/lower GI bleed many years ago with exsanguination and stayed in ICU/had transfusions then another less severe lower GI bleed a few years later, upper GI bleed, duodenal ulcer, hiatal hernia, hepatitis C d/t blood transfusion-2nd treatment successful, some recent short term memory issues/tremors in hands and balance issues past few months being worked up, constipation, diverticulitis and past pre cancerous polypectomies-last colonoscopy was normal in 2018, low back pain, L shoulder pain, 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 History of Any Multi-Drug Resistant Organisms: None Reported Past Surgical History: Bowel Resection, Cholecystectomy, Heart Catheterization With Stent, Orthopedic Surgery Additional Past Surgical History / Comment(s): 06/2018 PCI with stent, 1999 PCI with 2 stents, laparotomy with lysis of adhesions, R rotator cuff repair, R knee arthroscopy, R upper chest lipoma removed, bilateral cataract removals/lens implants, EGD and colonoscopies with pre cancerous polypectomies-last colonoscopy in 2018 was normal per pt. Past Anesthesia/Blood Transfusion Reactions: Blood Transfusion Reaction Additional Past Anesthesia/Blood Transfusion Reaction / Comment(s): CONTRACTED HEP C FROM A BLOOD TRANSFUSION 35-40 YEARS AGO. Date of Last Stent Placement:: JUN 2018 Past Psychological History: No Psychological Hx Reported Smoking Status: Former smoker - Past Family History Mother Family Medical History: Cancer Additional Family Medical History / Comment(s): Other at age 80 from acute kidney injury following surgery. Patient had bladder suspension surgery and she developed to have possibly uterine cancer however she ended up with renal failure refused hemodialysis Father Family Medical History: Cancer, Deep Vein Thrombosis (DVT), Pulmonary Embolus Additional Family Medical History / Comment(s): LUNG CANCER. Father in his mid 60s due to blood clots with history of bladder cancer . The cause of pulmonary embolism. Brother(s) Family Medical History: Cancer, Coronary Artery Disease (CAD) Additional Family Medical History / Comment(s): Patient has one brother with history of non-Hodgkin's lymphoma diagnosed 15 YEARS AGO. He does not have any sisters. He has adult children with no major medical problem basically 2 sons and a daughter. General Exam Limitations: no limitations General appearance: alert, in no apparent distress, other (Well-developed, well- nourished male in no acute distress. Presenting vital signs include temperature 98.2F, pulse 81, respirations 18, blood pressure 117/86, pulse ox 98% on room air.) ENT exam: Present: normal exam, mucous membranes moist Respiratory exam: Present: normal lung sounds bilaterally. Absent: respiratory distress, wheezes, rales, rhonchi, stridor Cardiovascular Exam: Present: regular rate, normal rhythm, normal heart sounds. Absent: systolic murmur, diastolic murmur, rubs, gallop, clicks GI/Abdominal exam: Present: soft, distended, tenderness (Diffuse abdominal tenderness, worse in the upper quadrants), diminished bowel sounds. Absent: guarding, rebound, rigid Neurological exam: Present: alert, oriented X3, CN II-XII intact Psychiatric exam: Present: normal affect, normal mood Skin exam: Present: warm, dry, intact, normal color. Absent: rash Course Vital Signs 04/03/20 04/03/20 04/03/20 12:35 13:32 15:01 Temperature 98.2 F Pulse Rate 81 75 77 Respiratory 18 16 16 Rate Blood Pressure 117/86 122/75 122/76 O2 Sat by Pulse 98 95 95 Oximetry 04/03/20 16:19 Temperature Pulse Rate 69 Respiratory 16 Rate Blood Pressure 133/93 O2 Sat by Pulse 94 L Oximetry Medical Decision Making - Medical Decision Making 84-year-old male patient presents to the emergency department today for evaluation of abdominal pain and diarrhea. Physical examination did reveal generalized mild abdominal tenderness. Labs reviewed and are unremarkable. Normal white blood cell count and lactic acid. CT abdomen and pelvis was obtained and did show an abdominal wall hernia which does contain small bowel loops, incarceration strangulate mata could not be ruled out. I did call and discuss the case with the patient's surgeon Dr. berkowitz, we did review computed tomography scan results and lab results. Patient is passing gas and having bowel movements so it is unlikely that he is obstructed. Computed tomography scan is the same as previous. I did discuss findings and results with the patient. He does report improvement of symptoms. He does feel comfortable being discharged home at this time. He is instructed to follow-up with Dr. Green his primary care physician for recheck in 1-2 days. Return parameters discussed in detail. He verbalizes understanding and agrees with this plan. - Lab Data Result diagrams: 04/03/20 13:24 04/03/20 13:24 Lab Results 04/03/20 04/03/20 04/03/20 Range/Units 13:24 13:24 13:24 WBC 12.5 H (3.8-10.6) k/uL RBC 5.77 (4.30-5.90) m/uL Hgb 17.5 D (13.0-17.5) gm/dL Hct 54.0 H (39.0-53.0) % MCV 93.6 (80.0-100.0) fL MCH 30.3 (25.0-35.0) pg MCHC 32.4 (31.0-37.0) g/dL RDW 13.1 (11.5-15.5) % Plt Count 304 (150-450) k/uL Neutrophils % 67 % Lymphocytes % 21 % Monocytes % 7 % Eosinophils % 2 % Basophils % 1 % Neutrophils # 8.4 H (1.3-7.7) k/uL Lymphocytes # 2.6 (1.0-4.8) k/uL Monocytes # 0.9 (0-1.0) k/uL Eosinophils # 0.2 (0-0.7) k/uL Basophils # 0.1 (0-0.2) k/uL Sodium 138 (137-145) mmol/L Potassium 5.0 (3.5-5.1) mmol/L Chloride 103 (98-107) mmol/L Carbon Dioxide 24 (22-30) mmol/L Anion Gap 11 mmol/L BUN 16 (9-20) mg/dL Creatinine 1.45 H (0.66-1.25) mg/dL Est GFR (CKD-EPI)AfAm 52 (>60 ml/min/1.73 sqM) Est GFR (CKD-EPI)NonAf 45 (>60 ml/min/1.73 sqM) Glucose 113 H (74-99) mg/dL Plasma Lactic Acid Luiz (0.7-2.0) mmol/L Calcium 10.0 (8.4-10.2) mg/dL Total Bilirubin 0.7 (0.2-1.3) mg/dL AST 42 (17-59) U/L ALT 47 (4-49) U/L Alkaline Phosphatase 69 (38-126) U/L Total Protein 7.6 (6.3-8.2) g/dL Albumin 4.7 (3.5-5.0) g/dL Lipase 44 (23-300) U/L Urine Color Yellow Urine Appearance Clear (Clear) Urine pH 6.0 (5.0-8.0) Ur Specific [place] 1.026 (1.001-1.035) Urine Protein 1+ H (Negative) Urine Glucose (UA) Negative (Negative) Urine Ketones Negative (Negative) Urine Blood Negative (Negative) Urine Nitrite Negative (Negative) Urine Bilirubin Negative (Negative) Urine Urobilinogen <2.0 (<2.0) mg/dL Ur Leukocyte Esterase Negative (Negative) Urine RBC 1 (0-5) /hpf Urine WBC 3 (0-5) /hpf Ur Squamous Epith Cells 1 (0-4) /hpf Calcium Oxalate Crystal Few H (None) /hpf Amorphous Sediment Rare H (None) /hpf Hyaline Casts 5 H (0-2) /lpf Urine Mucus Many H (None) /hpf 04/03/20 Range/Units 13:24 WBC (3.8-10.6) k/uL RBC (4.30-5.90) m/uL Hgb (13.0-17.5) gm/dL Hct (39.0-53.0) % MCV (80.0-100.0) fL MCH (25.0-35.0) pg MCHC (31.0-37.0) g/dL RDW (11.5-15.5) % Plt Count (150-450) k/uL Neutrophils % % Lymphocytes % % Monocytes % % Eosinophils % % Basophils % % Neutrophils # (1.3-7.7) k/uL Lymphocytes # (1.0-4.8) k/uL Monocytes # (0-1.0) k/uL Eosinophils # (0-0.7) k/uL Basophils # (0-0.2) k/uL Sodium (137-145) mmol/L Potassium (3.5-5.1) mmol/L Chloride (98-107) mmol/L Carbon Dioxide (22-30) mmol/L Anion Gap mmol/L BUN (9-20) mg/dL Creatinine (0.66-1.25) mg/dL Est GFR (CKD-EPI)AfAm (>60 ml/min/1.73 sqM) Est GFR (CKD-EPI)NonAf (>60 ml/min/1.73 sqM) Glucose (74-99) mg/dL Plasma Lactic Acid Luiz 1.4 (0.7-2.0) mmol/L Calcium (8.4-10.2) mg/dL Total Bilirubin (0.2-1.3) mg/dL AST (17-59) U/L ALT (4-49) U/L Alkaline Phosphatase (38-126) U/L Total Protein (6.3-8.2) g/dL Albumin (3.5-5.0) g/dL Lipase (23-300) U/L Urine Color Urine Appearance (Clear) Urine pH (5.0-8.0) Ur Specific [place] (1.001-1.035) Urine Protein (Negative) Urine Glucose (UA) (Negative) Urine Ketones (Negative) Urine Blood (Negative) Urine Nitrite (Negative) Urine Bilirubin (Negative) Urine Urobilinogen (<2.0) mg/dL Ur Leukocyte Esterase (Negative) Urine RBC (0-5) /hpf Urine WBC (0-5) /hpf Ur Squamous Epith Cells (0-4) /hpf Calcium Oxalate Crystal (None) /hpf Amorphous Sediment (None) /hpf Hyaline Casts (0-2) /lpf Urine Mucus (None) /hpf - Radiology Data Radiology results: report reviewed, image reviewed CT abdomen and pelvis was obtained. Report was reviewed in its entirety. Impression by Dr. Banks shows anterior periumbilical abdominal wall hernia with mild induration of the anterior peritoneal fat containing small bowel loop. This suggests inflammatory change her cannot exclude incarceration or strangulation. This may result in a partial obstructive pattern correlate clinically. A second smaller anterior abdominal hernia is seen to appear to the periumbilical hernia. Diverticulosis with no CT evidence of diverticulitis. Disposition Clinical Impression: Abdominal pain, Diarrhea Disposition: HOME SELF-CARE Condition: Good Instructions (If sedation given, give patient instructions): Acute Diarrhea (ED), Abdominal Pain (ED) Additional Instructions: Start with soft or clear liquid diet. Follow-up with Dr. berkowitz as needed. Follow-up through primary care physician for recheck in 1-2 days. Return to the emergency department immediately for any new, worsening, or concerning symptoms. Is patient prescribed a controlled substance at d/c from ED?: No Referrals: Clementine Arce MD [Primary Care Provider] - 1-2 days Time of Disposition: 16:28
[2020-04-03 13:33] VITALS: RESP 16
[2020-04-03 14:02] LABS: Albumin 4.7 g/dL (3.5-5.0); Total Bilirubin 0.7 mg/dL (0.2-1.3); Total Protein 7.6 g/dL (6.3-8.2)
[2020-04-03 14:18] LABS: Basophils # (A) 0.1 k/uL (0-0.2); Basophils % (A) 1 %; Eosinophils # (A) 0.2 k/uL (0-0.7); Eosinophils % (A) 2 %; Lymphocytes # (A) 2.6 k/uL (1.0-4.8); Lymphocytes % (A) 21 %; MCH 30.3 pg (25.0-35.0); MCHC 32.4 g/dL (31.0-37.0); MCV 93.6 fL (80.0-100.0); Mean Platelet Volume 7.2; Monocytes # (A) 0.9 k/uL (0-1.0); Monocytes % (A) 7 %; Neutrophils # (A) 8.4 k/uL (1.3-7.7); Neutrophils % (A) 67 %; Platelet Count 304 k/uL (150-450); RBC 5.77 m/uL (4.30-5.90); RDW 13.1 % (11.5-15.5); WBC 12.5 k/uL (3.8-10.6)
[2020-04-03 14:20] LABS: HGB 17.5 gm/dL (13.0-17.5)
[2020-04-03 14:43] LABS: Amorphous Sediment,Urine Rare /hpf; Appearance,Urine Clear (Clear); Bilirubin,Urine Negative (Negative); Blood,Urine Negative (Negative); Calcium Oxalate Crystals,Urine Few /hpf; Color,Urine Yellow; Glucose,Urine (UA) Negative (Negative); Hyaline Casts,Urine 5 /lpf (0-2); Ketones,Urine Negative (Negative); Leukocyte Esterase,Urine Negative (Negative); Mucus,Urine Many /hpf; Nitrite,Urine Negative (Negative); Protein,Urine 1+ (Negative); RBC,Urine 1 /hpf (0-5); Specific Gravity,Urine 1.026 (1.001-1.035); Squamous Epithelial Cell,Urine 1 /hpf (0-4); Urobilinogen,Urine <2.0 mg/dL (<2.0); WBC,Urine 3 /hpf (0-5)
--- NOTE | 2020-04-03 15:37 | CT ---
EXAMINATION TYPE: CT abdomen pelvis wo con DATE OF EXAM: 04/03/2020 COMPARISON: 03/15/2020 HISTORY: Generalized abdominal pain. CT DLP: 587.2 mGycm Automated exposure control for dose reduction was used. TECHNIQUE: Helical acquisition of images was performed from the lung bases through the pelvis. FINDINGS: LUNG BASES: Coronary artery calcification seen. Lung zimmerman are clear. LIVER/GB: Postcholecystectomy clips noted. PANCREAS: No significant abnormality is seen. SPLEEN: No significant abnormality is seen. ADRENALS: No significant abnormality is seen. KIDNEYS: 1.2 cm hypodensity within the left kidney is indeterminate by noncontrast technique. FREE AIR: No free air is visualized RETROPERITONEAL ADENOPATHY: None visualized REPRODUCTIVE ORGANS: No significant abnormality is seen URINARY BLADDER: No significant abnormality is seen. PELVIC ADENOPATHY: None visualized. OSSEOUS STRUCTURES: Hypertrophic and degenerative changes of the spine. BOWEL: There appears to be evidence of an anterior abdominal wall hernia containing small bowel loop s there is mild dilation of small bowel or could be a partial obstructive pattern. Air is seen within the colon which demonstrates changes of diverticulosis. Mild induration the anterior mesentery noted . OTHER: Aorta of normal caliber. No free fluid. Atherosclerotic changes of the aorta. IMPRESSION: 1. There is anterior periumbilical abdominal wall hernia with mild induration of the anterior periton eal fat and contains small bowel loop. This suggest inflammatory change. Cannot exclude incarceration or strangulation. This may be result in a partial obstructive pattern correlate clinically. 2. A second smaller anterior abdominal wall hernia is seen superior to the periumbilical hernia. 3. Diverticulosis with no CT evidence of diverticulitis
[2020-04-03] MEDS ORDERED: ACETAMINOPHEN TAB 325 MG TAB PO STA (16:04)
[2020-04-03 16:22] VITALS: BP 133/93; PULSE 69
== END 2020-04-03 17:06 | disposition home or self-care (01) ==
LOC: EC 12:31
DX: K43.9 Ventral hernia without obstruction or gangrene (principal); R19.7 Diarrhea, unspecified; R10.9 Unspecified abdominal pain; R10.817 Generalized abdominal tenderness; I10 Essential (primary) hypertension; J45.909 Unspecified asthma, uncomplicated; M19.90 Unspecified osteoarthritis, unspecified site; I25.110 Atherosclerotic heart disease of native coronary artery with unstable angina pectoris; E78.5 Hyperlipidemia, unspecified; K21.9 Gastro-esophageal reflux disease without esophagitis; K44.9 Diaphragmatic hernia without obstruction or gangrene; K26.9 Duodenal ulcer, unspecified as acute or chronic, without hemorrhage or perforation; M54.5 Low back pain; M25.512 Pain in left shoulder; H91.93 Unspecified hearing loss, bilateral; Z79.899 Other long term (current) drug therapy; Z79.82 Long term (current) use of aspirin; Z88.8 Allergy status to other drugs, medicaments and biological substances; Z88.0 Allergy status to penicillin; Z87.891 Personal history of nicotine dependence; Z90.49 Acquired absence of other specified parts of digestive tract
CPT/HCPCS: 36415; 80053; 83605; 83690; 85025; 81001; 74176; 99284; 96374; 96375; 96361 ×3; J2405; J2270

== ENCOUNTER → 2020-05-09 | Outpatient (CLI) | payer MEDICARE ==
--- NOTE | 2020-05-09 17:48 | MR ---
EXAMINATION TYPE: MR brain wo con DATE OF EXAM: 05/09/2020 COMPARISON: CT brain 02/23/2020 HISTORY: Normal pressure hydrocephalus TECHNIQUE: Multiplanar, multisequence images of the brain and brainstem is performed without intravenous contras t. FINDINGS: Diffusion weighted images demonstrate no evidence of a recent infarct or other diffusion ab normality. There is no extra-axial fluid collection. There is moderate to marked T2 FLAIR hyperinten se foci predominantly periventricular, and to a lesser degree involving the subcortical and deep whit e matter. There is diffuse volume loss. There is diffuse ventriculomegaly and prominent sulci and cisternal spa maria elena which is proportional. Midline structures demonstrate normal morphology. There is no significant bowing of the corpus callosum. The craniocervical junction appears within normal limits. The visualized sinuses are grossly clear. Postsurgical length changes of the bilateral globes. IMPRESSION: 1. No specific MRI findings of normal pressure hydrocephalus. 2. Diffuse volume loss and proportional prominence of the ventricles, sulci, and cisternal spaces. 3. Moderate to severe T2 FLAIR hyperintense foci are nonspecific, and may represent sequela of chron ic microvascular ischemic change.
== END | disposition home or self-care (01) ==
LOC: RADMRIMAIN 08:36
PROVIDERS: ATTEND Psychiatry & Neurology Neurology
DX: R93.0 Abnormal findings on diagnostic imaging of skull and head, not elsewhere classified (principal)
CPT/HCPCS: 70551

== ENCOUNTER → 2020-05-23 | Outpatient (CLI) | payer MEDICARE ==
[2020-05-23 11:34] LABS: Albumin 4.2 g/dL (3.5-5.0); Calcium 9.3 mg/dL (8.4-10.2); Potassium 4.9 mmol/L (3.5-5.1); Total Bilirubin 0.6 mg/dL (0.2-1.3)
[2020-05-23 11:37] LABS: INR 0.9 (<1.2); Prothrombin Time 9.7 sec (9.0-12.0)
[2020-05-23 11:39] LABS: Basophils # (A) 0.1 k/uL (0-0.2); Basophils % (A) 1 %; Eosinophils # (A) 0.4 k/uL (0-0.7); Eosinophils % (A) 5 %; HCT 47.7 % (39.0-53.0); HGB 15.5 gm/dL (13.0-17.5); Lymphocytes # (A) 2.1 k/uL (1.0-4.8); Lymphocytes % (A) 27 %; MCH 30.9 pg (25.0-35.0); MCHC 32.4 g/dL (31.0-37.0); MCV 95.4 fL (80.0-100.0); Monocytes # (A) 0.6 k/uL (0-1.0); Monocytes % (A) 8 %; Neutrophils # (A) 4.3 k/uL (1.3-7.7); Neutrophils % (A) 55 %; Platelet Count 257 k/uL (150-450); RDW 13.2 % (11.5-15.5); WBC 7.8 k/uL (3.8-10.6)
--- NOTE | 2020-05-23 15:37 | US ---
EXAMINATION TYPE: US liver DATE OF EXAM: 05/23/2020 COMPARISON: CT abdomen pelvis 04/03/2020 CLINICAL HISTORY: K74.60. History of Hepatitis C. Status post cholecystectomy. EXAM MEASUREMENTS: Liver Length: 12.6 cm Right Kidney: 9.6 x 3.8 x 4.3 cm Limited/suboptimal exam due to overlying bowel gas Pancreas: Obscured by bowel gas. Liver: Not well visualized. Scanned through ribs. Appears coarse and hyperechoic. Gallbladder: Surgically absent. Receptionist Doctor'S Office reports negative sonographic Gonzalez sign. CBD: Obscured by overlying bowel gas Right Kidney: No hydronephrosis. Inferior cyst measures 0.7 x 0.8 x 0.6 cm. IMPRESSION: 1. Fatty heterogenous liver. Significantly limited visualization of the liver due to patient anatomy and fatty attenuation. Recommend utilizing MRI exam for future HCC screening. 2. Pancreas and common bile duct obscured by overlying bowel gas.
== END | disposition home or self-care (01) ==
LOC: RADUSWWP 09:35
PROVIDERS: ATTEND Internal Medicine Gastroenterology
DX: K76.0 Fatty (change of) liver, not elsewhere classified (principal); K86.89 Other specified diseases of pancreas
CPT/HCPCS: 76705; 80053; 82105; 85025; 85610

== ENCOUNTER → 2020-09-06 | Outpatient (CLI) | payer MEDICARE ==
[2020-09-06 17:01] LABS: African American GFR (CKD) 53.5 (60.0-200.0); Albumin 4.6 g/dL (3.80-4.90); Albumin/Globulin Ratio 2.19 (1.60-3.17); Anion Gap 7.8 mmol/L (4.00-12.00); BUN/Creat Ratio 12.86 Ratio (12.00-20.00); Carbon Dioxide 25.2 mmol/L (21.6-31.8); Chol/HDL Ratio 3.02; Globulin 2.1 g/dL (1.6-3.3); LDL Cholesterol,Calculated 66.6 mg/dL (0.0-131.0); Non-African American GFR(CKD) 46.1 (60.0-200.0); Potassium 4.4 mmol/L (3.5-5.5); Total Bilirubin 0.6 mg/dL (0.3-1.2); Total Protein 6.7 g/dL (6.2-8.2); VLDL Calculation 24.4 mg/dL (5.00-40.00)
== END | disposition home or self-care (01) ==
LOC: LABWHC1 09:06
PROVIDERS: ATTEND Internal Medicine Interventional Cardiology
DX: E78.2 Mixed hyperlipidemia (principal)
CPT/HCPCS: 36415; 80053; 80061

== ENCOUNTER 2020-10-26 09:40 | Inpatient (IN) | payer MEDICARE ==
[2020-10-26] MEDS ORDERED: SODIUM CHLORIDE 0.9% 500 ML 500 ML IV STA (10:02)
[2020-10-26] MEDS ORDERED: ONDANSETRON 4 MG/2 ML VIAL IVP STA (10:02)
[2020-10-26] MEDS ORDERED: MORPHINE SULFATE 4 MG/ML SYRINGE IV STA (10:02)
[2020-10-26 10:51] LABS: Basophils % (A) 0 %; Eosinophils # (A) 0.1 k/uL (0-0.7); Eosinophils % (A) 1 %; HCT 52.7 % (39.0-53.0); HGB 18.6 gm/dL (13.0-17.5); Lymphocytes # (A) 1.1 k/uL (1.0-4.8); Lymphocytes % (A) 9 %; MCH 32.6 pg (25.0-35.0); MCHC 35.4 g/dL (31.0-37.0); MCV 92.1 fL (80.0-100.0); Mean Platelet Volume 6.9; Monocytes # (A) 0.8 k/uL (0-1.0); Monocytes % (A) 7 %; Neutrophils # (A) 10.4 k/uL (1.3-7.7); Neutrophils % (A) 82 %; Platelet Count 235 k/uL (150-450); RBC 5.72 m/uL (4.30-5.90); RDW 12.9 % (11.5-15.5); WBC 12.6 k/uL (3.8-10.6)
[2020-10-26 11:01] LABS: Albumin 5.1 g/dL (3.5-5.0); Calcium 10.1 mg/dL (8.4-10.2); Potassium 4.3 mmol/L (3.5-5.1); Total Bilirubin 0.9 mg/dL (0.2-1.3); Total Protein 8.6 g/dL (6.3-8.2)
--- NOTE | 2020-10-26 11:46 | ED ---
Abdominal Pain HPI - General Chief Complaint: Abdominal Pain Stated Complaint: Vomiting Time Seen by Provider: 10/26/20 09:48 Source: patient, RN notes reviewed Mode of arrival: ambulatory Limitations: no limitations - History of Present Illness Initial Comments: This an 85-year-old male presents emergency Department chief complaint abdominal pain, abdominal distention, concerns for bowel obstruction. Patient states that he's had multiple obstructions in the past he had a prior resection by Dr. Munguia. Patient states she currently sees Dr. berkowitz. Patient denies any chest pain shortness breath he's had nausea vomiting did one small bowel movement today but states that did not help her symptoms. No dysuria no hematuria. - Related Data Home Medications Medication Instructions Recorded Confirmed Simvastatin [Zocor] 20 mg PO HS 02/23/14 03/15/20 Omeprazole 40 mg PO DAILY 02/14/19 03/15/20 Aspirin EC [Ecotrin Low Dose] 81 mg PO DAILY 02/23/20 03/15/20 Calcium Citrate/Vitamin D3 1 tab PO DAILY 02/23/20 03/15/20 [Citracal + D Maximum Caplet] Cyanocobalamin (Vitamin B-12) 1,000 mcg PO MOWEFR 02/23/20 03/15/20 [Vitamin B-12] Metoprolol Tartrate [Lopressor] 12.5 mg PO BID 02/23/20 03/15/20 Vitamin B Complex 1 cap PO DAILY 02/23/20 03/15/20 Montelukast Sodium [Singulair] 10 mg PO HS 03/15/20 03/15/20 amLODIPine [Norvasc] 5 mg PO DAILY 03/15/20 03/15/20 Previous Rx's Medication Instructions Recorded Pantoprazole [Protonix] 40 mg PO DAILY #30 tablet. 03/18/20 Allergies Allergy/AdvReac Type Severity Reaction Status Date / Time Penicillins Allergy Rash/Hives Verified 10/26/20 09:44 prednisone Allergy Rash/Hives Verified 10/26/20 09:44 Review of Systems ROS Statement: Those systems with pertinent positive or pertinent negative responses have been documented in the HPI. ROS Other: All systems not noted in ROS Statement are negative. Past Medical History Past Medical History: Asthma, Coronary Artery Disease (CAD), Chest Pain / Angina, GERD/Reflux, GI Bleed, Hearing Disorder / Deafness, Hyperlipidemia, Hypertension, Liver Disease, Osteoarthritis (OA) Additional Past Medical History / Comment(s): Recurrent SBO d/t adhesions with conservative treatment and surgical treatment, mild leaky heart valve, bleeding ulcer/lower GI bleed many years ago with exsanguination and stayed in ICU/had transfusions then another less severe lower GI bleed a few years later, upper GI bleed, duodenal ulcer, hiatal hernia, hepatitis C d/t blood transfusion-2nd treatment successful, some recent short term memory issues/tremors in hands and balance issues past few months being worked up, constipation, diverticulitis and past pre cancerous polypectomies-last colonoscopy was normal in 2018, low back pain, L shoulder pain, 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 History of Any Multi-Drug Resistant Organisms: None Reported Past Surgical History: Bowel Resection, Cholecystectomy, Heart Catheterization With Stent, Orthopedic Surgery Additional Past Surgical History / Comment(s): 06/2018 PCI with stent, 1999 PCI with 2 stents, laparotomy with lysis of adhesions, R rotator cuff repair, R knee arthroscopy, R upper chest lipoma removed, bilateral cataract removals/lens implants, EGD and colonoscopies with pre cancerous polypectomies-last colonoscopy in 2018 was normal per pt. Past Anesthesia/Blood Transfusion Reactions: Blood Transfusion Reaction Additional Past Anesthesia/Blood Transfusion Reaction / Comment(s): CONTRACTED HEP C FROM A BLOOD TRANSFUSION 35-40 YEARS AGO. Date of Last Stent Placement:: JUN 2018 Past Psychological History: No Psychological Hx Reported Smoking Status: Former smoker Past Alcohol Use History: None Reported Past Drug Use History: None Reported - Past Family History Mother Family Medical History: Cancer Additional Family Medical History / Comment(s): Other at age 80 from acute kidney injury following surgery. Patient had bladder suspension surgery and she developed to have possibly uterine cancer however she ended up with renal failure refused hemodialysis Father Family Medical History: Cancer, Deep Vein Thrombosis (DVT), Pulmonary Embolus Additional Family Medical History / Comment(s): LUNG CANCER. Father in his mid 60s due to blood clots with history of bladder cancer . The cause of pulmonary embolism. Brother(s) Family Medical History: Cancer, Coronary Artery Disease (CAD) Additional Family Medical History / Comment(s): Patient has one brother with history of non-Hodgkin's lymphoma diagnosed 15 YEARS AGO. He does not have any sisters. He has adult children with no major medical problem basically 2 sons and a daughter. General Exam Limitations: no limitations General appearance: alert, in no apparent distress Head exam: Present: atraumatic, normocephalic, normal inspection Eye exam: Present: normal appearance, PERRL, EOMI. Absent: scleral icterus, conjunctival injection, periorbital swelling Neck exam: Present: normal inspection, full ROM. Absent: tenderness, me ningismus, lymphadenopathy Respiratory exam: Present: normal lung sounds bilaterally. Absent: respiratory distress, wheezes, rales, rhonchi, stridor Cardiovascular Exam: Present: regular rate, normal rhythm, normal heart sounds. Absent: systolic murmur, diastolic murmur, rubs, gallop, clicks GI/Abdominal exam: Present: soft, distended, tenderness, normal bowel sounds. Absent: guarding, rebound, rigid Back exam: Absent: CVA tenderness (R), CVA tenderness (L) Neurological exam: Present: alert Skin exam: Present: warm, dry, intact, normal color. Absent: rash Course Vital Signs 10/26/20 10/26/20 09:42 12:40 Temperature 98.5 F Pulse Rate 83 74 Respiratory 20 18 Rate Blood Pressure 132/71 131/81 O2 Sat by Pulse 95 93 L Oximetry Medical Decision Making - Medical Decision Making CT shows evidence of small bowel obstruction. Patient has long history which is followed by surgery. Patient will have NG tube placed. Patient will have consult to Dr. berkowitz as this is his general surgeon. - Lab Data Result diagrams: 10/26/20 10:37 10/26/20 10:38 Lab Results 10/26/20 10/26/20 10/26/20 Range/Units 10:37 10:38 10:38 WBC 12.6 H (3.8-10.6) k/uL RBC 5.72 (4.30-5.90) m/uL Hgb 18.6 H (13.0-17.5) gm/dL Hct 52.7 (39.0-53.0) % MCV 92.1 (80.0-100.0) fL MCH 32.6 (25.0-35.0) pg MCHC 35.4 (31.0-37.0) g/dL RDW 12.9 (11.5-15.5) % Plt Count 235 (150-450) k/uL MPV 6.9 Neutrophils % 82 % Lymphocytes % 9 % Monocytes % 7 % Eosinophils % 1 % Basophils % 0 % Neutrophils # 10.4 H (1.3-7.7) k/uL Lymphocytes # 1.1 (1.0-4.8) k/uL Monocytes # 0.8 (0-1.0) k/uL Eosinophils # 0.1 (0-0.7) k/uL Basophils # 0.0 (0-0.2) k/uL APTT 23.3 (22.0-30.0) sec Sodium 140 (137-145) mmol/L Potassium 4.3 (3.5-5.1) mmol/L Chloride 100 (98-107) mmol/L Carbon Dioxide 27 (22-30) mmol/L Anion Gap 13 mmol/L BUN 23 H (9-20) mg/dL Creatinine 1.15 (0.66-1.25) mg/dL Est GFR (CKD-EPI)AfAm 68 (>60 ml/min/1.73 sqM) Est GFR (CKD-EPI)NonAf 59 (>60 ml/min/1.73 sqM) Glucose 127 H (74-99) mg/dL Plasma Lactic Acid Luiz (0.7-2.0) mmol/L Calcium 10.1 (8.4-10.2) mg/dL Total Bilirubin 0.9 (0.2-1.3) mg/dL AST 29 (17-59) U/L ALT 27 (4-49) U/L Alkaline Phosphatase 86 (38-126) U/L Total Protein 8.6 H (6.3-8.2) g/dL Albumin 5.1 H (3.5-5.0) g/dL Amylase 59 (30-110) U/L Lipase 31 (23-300) U/L 10/26/20 Range/Units 10:38 WBC (3.8-10.6) k/uL RBC (4.30-5.90) m/uL Hgb (13.0-17.5) gm/dL Hct (39.0-53.0) % MCV (80.0-100.0) fL MCH (25.0-35.0) pg MCHC (31.0-37.0) g/dL RDW (11.5-15.5) % Plt Count (150-450) k/uL MPV Neutrophils % % Lymphocytes % % Monocytes % % Eosinophils % % Basophils % % Neutrophils # (1.3-7.7) k/uL Lymphocytes # (1.0-4.8) k/uL Monocytes # (0-1.0) k/uL Eosinophils # (0-0.7) k/uL Basophils # (0-0.2) k/uL APTT (22.0-30.0) sec Sodium (137-145) mmol/L Potassium (3.5-5.1) mmol/L Chloride (98-107) mmol/L Carbon Dioxide (22-30) mmol/L Anion Gap mmol/L BUN (9-20) mg/dL Creatinine (0.66-1.25) mg/dL Est GFR (CKD-EPI)AfAm (>60 ml/min/1.73 sqM) Est GFR (CKD-EPI)NonAf (>60 ml/min/1.73 sqM) Glucose (74-99) mg/dL Plasma Lactic Acid Luiz 1.7 (0.7-2.0) mmol/L Calcium (8.4-10.2) mg/dL Total Bilirubin (0.2-1.3) mg/dL AST (17-59) U/L ALT (4-49) U/L Alkaline Phosphatase (38-126) U/L Total Protein (6.3-8.2) g/dL Albumin (3.5-5.0) g/dL Amylase (30-110) U/L Lipase (23-300) U/L Disposition Clinical Impression: Small bowel obstruction Disposition: ADMITTED IP TO THIS HOSP Condition: Fair Referrals: Clementine Arce MD [Primary Care Provider] - 1-2 days
--- NOTE | 2020-10-26 12:39 | CT ---
EXAMINATION TYPE: CT abdomen pelvis w con DATE OF EXAM: 10/26/2020 COMPARISON: 04/03/2020 HISTORY: 85-year-old male Vomiting, abdominal pain, R/O obstruction TECHNIQUE: Contiguous axial scanning of the abdomen and pelvis following administration of 100 ml Iso polly 300 IV contrast. Delayed images through the kidneys and coronal/sagittal reconstructions perform ed. CT DLP: 953.7 mGycm Automated exposure control for dose reduction was used. FINDINGS: Heart upper limits of normal size. There is patchy groundglass change/mosaic attenuation of the visua lized lower lungs without pleural effusion. There may be some fold thickening along the gastric antrum with relative caliber narrowing. Fluid mildly distending the distal esophagus. There is also prominent fluid distention of the stomach . Proximal to mid small bowel loops are dilated up to 4.0 cm. In addition, there is mild mesenteric e camilo suggested in the right side of the abdomen, axial images 34. There is a small umbilical hernia c ontaining a short segment of dilated small bowel but this does not clearly evident. 2 represent the t ransition point. Distal small bowel is collapsed as is the colon. Unable to clearly identify a well-d efined transition point though these findings are highly suggestive of small bowel obstruction. No free fluid or free air. No mesenteric or retroperitoneal lymphadenopathy. No focal liver lesion or biliary ductal dilatation. Portal venous system is patent. Small 2.4 cm dive rticulum of the second portion of the duodenum projecting inferiorly. Adrenal glands, spleen, and pancreas appear within normal limits. A few bilateral renal cortical cysts, largest measuring 2.0 cm. Generalized colonic diverticulosis, severe in the sigmoid colon. No pericolic inflammatory change. S ome mild mural based thickening/enhancement along the right lateral wall of the cecum, refer to axial image 54 could be due to collapsed and apposed mucosa. Bladder partially distended. Prostate gland measures 5.0 cm wide. No abnormal fluid collection the pe lvis or pelvic lymphadenopathy. Bones: Moderate multilevel degenerative disc disease. Hypertrophic facet arthropathy mid to lower lum bar spine. Trace grade 1) anterolisthesis L4-L5. IMPRESSION: 1. PROXIMAL AND MID SMALL BOWEL LOOPS DILATED UP TO 4.0 CM. THERE IS SOME REACTIVE MILD MESENTERIC ED THERON AT THE RIGHT MID ABDOMEN. DISTAL SMALL BOWEL IS COLLAPSED IS THE COLON. FINDINGS HIGHLY SUGGES TIVE OF SMALL BOWEL OBSTRUCTION THOUGH THE TRANSITION POINT IS NOT WELL DELINEATED. 2. THERE IS A SMALL UMBILICAL HERNIA CONTAINING A SEGMENT OF DILATED SMALL BOWEL BUT THIS DOES NOT CL EARLY APPEAR TO BE THE TRANSITION POINT. CLINICALLY CORRELATE. 3. MILD TO MODERATE FOLD THICKENING ALONG THE GASTRIC ANTRUM WITH RELATIVE CALIBER NARROWING. THIS MA Y BE DUE TO PERISTALSIS. WHEN THE PATIENT IS ABLE, CONSIDER DIRECT VISUALIZATION TO EXCLUDE GASTRITIS OR A MUCOSAL LESION. 4. SIMILARLY, SOME MURAL BASED THICKENING ALONG THE RIGHT LATERAL WALL OF THE CECUM COULD BE COLLAPSE D AND BUNCHED UP MUCOSA. DIRECT VISUALIZATION WHEN PATIENT ABLE TO EXCLUDE A MUCOSAL LESION. 5. GENERALIZED COLONIC DIVERTICULOSIS, SEVERE IN THE SIGMOID COLON WITHOUT ACUTE DIVERTICULITIS.
[2020-10-26] MEDS ORDERED: NALOXONE 0.4 MG/ML 1 ML VIAL IV PRN (12:46)
[2020-10-26] MEDS: SODIUM CHLORIDE 0.9% 1,000 ML IV SCH (13:29)
[2020-10-26 15:33] LABS: Appearance,Urine Clear (Clear); Bilirubin,Urine Negative (Negative); Blood,Urine Negative (Negative); Color,Urine Yellow; Glucose,Urine (UA) Negative (Negative); Ketones,Urine Negative (Negative); Leukocyte Esterase,Urine Negative (Negative); Mucus,Urine Rare /hpf; Nitrite,Urine Negative (Negative); Protein,Urine 1+ (Negative); RBC,Urine 1 /hpf (0-5); Squamous Epithelial Cell,Urine <1 /hpf (0-4); Urobilinogen,Urine <2.0 mg/dL (<2.0); WBC,Urine 1 /hpf (0-5)
[2020-10-26 15:52] LABS: Specific Gravity,Urine >1.050 (1.001-1.035)
[2020-10-26] MEDS: MORPHINE SULFATE 4 MG/ML SYRINGE IV PRN (17:11)
--- NOTE | 2020-10-26 18:19 | P.GSCN ---
History of Present Illness Consult date: 10/26/20 Reason for Consult: SSmall bowel obstructionmall bowel obstruction History of present illness: The patient is an 85 year old male who began having abdominal pain and distention yesterday. He has a history of small bowel obstructions in the past. Around 2014 he underwent surgery by Dr Munguia. He hasn't required surgery since then but has had several admissions for partial obstructions that resolved. The symptoms he had yesterday were similar, so he stopped eating and drinking to see if they would go away. During the night, the pain became worse and he started belching up bad tasting fluid. This morning he began throwing up so came into the ED. He had a large BM this am without improvement. He is having no vomiting or flatus. Admits to slight nausea and some abdominal pain. He would like to avoid an NG tube if at all possible. He does have an incisional hernia which hasn't caused pain. Review of Systems All systems: negative Past Medical History Past Medical History: Asthma, Coronary Artery Disease (CAD), Chest Pain / Angina, GERD/Reflux, GI Bleed, Hearing Disorder / Deafness, Hyperlipidemia, Hypertension, Liver Disease, Osteoarthritis (OA) Additional Past Medical History / Comment(s): Recurrent SBO d/t adhesions with conservative treatment and surgical treatment, mild leaky heart valve, bleeding ulcer/lower GI bleed many years ago with exsanguination and stayed in ICU/had transfusions then another less severe lower GI bleed a few years later, upper GI bleed, duodenal ulcer, hiatal hernia, hepatitis C d/t blood transfusion-2nd treatment successful, some recent short term memory issues/tremors in hands and balance issues past few months being worked up, constipation, diverticulitis and past pre cancerous polypectomies-last colonoscopy was normal in 2018, low back pain, L shoulder pain, 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 History of Any Multi-Drug Resistant Organisms: None Reported Past Surgical History: Bowel Resection, Cholecystectomy, Heart Catheterization With Stent, Orthopedic Surgery Additional Past Surgical History / Comment(s): 06/2018 PCI with stent, 1999 PCI with 2 stents, laparotomy with lysis of adhesions, R rotator cuff repair, R knee arthroscopy, R upper chest lipoma removed, bilateral cataract removals/lens implants, EGD and colonoscopies with pre cancerous polypectomies-last colonoscopy in 2018 was normal per pt. Past Anesthesia/Blood Transfusion Reactions: Blood Transfusion Reaction Additional Past Anesthesia/Blood Transfusion Reaction / Comm: CONTRACTED HEP C FROM A BLOOD TRANSFUSION 35-40 YEARS AGO. Date of Last Stent Placement:: JUN 2018 Past Psychological History: No Psychological Hx Reported Additional Psychological History / Comment(s): Pt resides with his spouse. He is independent. He is an [employer] . Smoking Status: Former smoker Past Alcohol Use History: None Reported Additional Past Alcohol Use History / Comment(s): Patient was a smoker from [id number]. He drinks a glass of wine on special occasions. No illicit drug use . Past Drug Use History: None Reported - Past Family History Mother Family Medical History: Cancer Additional Family Medical History / Comment(s): Other at age 80 from acute kidney injury following surgery. Patient had bladder suspension surgery and she developed to have possibly uterine cancer however she ended up with renal failure refused hemodialysis Father Family Medical History: Cancer, Deep Vein Thrombosis (DVT), Pulmonary Embolus Additional Family Medical History / Comment(s): LUNG CANCER. Father in his mid 60s due to blood clots with history of bladder cancer . The cause of pulmonary embolism. Brother(s) Family Medical History: Cancer, Coronary Artery Disease (CAD) Additional Family Medical History / Comment(s): Patient has one brother with his tory of non-Hodgkin's lymphoma diagnosed 15 YEARS AGO. He does not have any sisters. He has adult children with no major medical problem basically 2 sons and a daughter. Medications and Allergies Home Medications Medication Instructions Recorded Confirmed Type Simvastatin [Zocor] 20 mg PO HS 02/23/14 10/26/20 History Omeprazole 40 mg PO DAILY 02/14/19 10/26/20 History Calcium Citrate/Vitamin D3 1 tab PO DAILY 02/23/20 10/26/20 History [Citracal + D Maximum Caplet] Cyanocobalamin (Vitamin B-12) 1,000 mcg PO MOWEFR 02/23/20 10/26/20 History [Vitamin B-12] Metoprolol Tartrate [Lopressor] 12.5 mg PO BID 02/23/20 10/26/20 History Vitamin B Complex 1 cap PO CLAUDIO 02/23/20 10/26/20 History Montelukast Sodium [Singulair] 10 mg PO HS 03/15/20 10/26/20 History amLODIPine [Norvasc] 5 mg PO DAILY 03/15/20 10/26/20 History Famotidine [Pepcid] 20 mg PO BID PRN 10/26/20 10/26/20 History Lactose-Reduced Food [Boost] 1 can PO DAILY 10/26/20 10/26/20 History Allergies Allergy/AdvReac Type Severity Reaction Status Date / Time Penicillins Allergy Rash/Hives Verified 10/26/20 12:54 prednisone Allergy Rash/Hives Verified 10/26/20 12:54 Surgical - Exam Osteopathic Statement: *. No significant issues noted on an osteopathic structural exam other than those noted in the History and Physical/Consult. Vital Signs Temp Pulse Resp BP Pulse Ox 98.5 F 83 20 132/71 95 10/26/20 09:42 10/26/20 09:42 10/26/20 09:42 10/26/20 09:42 10/26/20 09:42 - General well developed, well nourished, no distress - Eyes normal ocular movement - Neck trachea midline - Respiratory normal respiratory effort, clear to auscultation - Cardiovascular Rhythm: regular - Abdomen Abdomen: tender (mild nonspecific), no guarding, no rigid, no rebound, distended (softly) Hernia: incisional (is very soft and nontender) - Psychiatric oriented to time, oriented to person, oriented to place, speech is normal, memory intact Results - Labs 10/26/20 10:37 10/26/20 10:38 Abnormal Lab Results - Last 24 Hours (Table) 10/26/20 10/26/20 10/26/20 Range/Units 10:37 10:38 15:06 WBC 12.6 H (3.8-10.6) k/uL Hgb 18.6 H (13.0-17.5) gm/dL Neutrophils # 10.4 H (1.3-7.7) k/uL BUN 23 H (9-20) mg/dL Glucose 127 H (74-99) mg/dL Total Protein 8.6 H (6.3-8.2) g/dL Albumin 5.1 H (3.5-5.0) g/dL Ur Specific [place] >1.050 H (1.001-1.035) Urine Protein 1+ H (Negative) Urine Mucus Rare H (None) /hpf Diabetes panel 10/26/20 Range/Units 10:38 Sodium 140 (137-145) mmol/L Potassium 4.3 (3.5-5.1) mmol/L Chloride 100 (98-107) mmol/L Carbon Dioxide 27 (22-30) mmol/L BUN 23 H (9-20) mg/dL Creatinine 1.15 (0.66-1.25) mg/dL Glucose 127 H (74-99) mg/dL Calcium 10.1 (8.4-10.2) mg/dL AST 29 (17-59) U/L ALT 27 (4-49) U/L Alkaline Phosphatase 86 (38-126) U/L Total Protein 8.6 H (6.3-8.2) g/dL Albumin 5.1 H (3.5-5.0) g/dL Calcium panel 10/26/20 Range/Units 10:38 Calcium 10.1 (8.4-10.2) mg/dL Albumin 5.1 H (3.5-5.0) g/dL Pituitary panel 10/26/20 Range/Units 10:38 Sodium 140 (137-145) mmol/L Potassium 4.3 (3.5-5.1) mmol/L Chloride 100 (98-107) mmol/L Carbon Dioxide 27 (22-30) mmol/L BUN 23 H (9-20) mg/dL Creatinine 1.15 (0.66-1.25) mg/dL Glucose 127 H (74-99) mg/dL Calcium 10.1 (8.4-10.2) mg/dL Adrenal panel 10/26/20 Range/Units 10:38 Sodium 140 (137-145) mmol/L Potassium 4.3 (3.5-5.1) mmol/L Chloride 100 (98-107) mmol/L Carbon Dioxide 27 (22-30) mmol/L BUN 23 H (9-20) mg/dL Creatinine 1.15 (0.66-1.25) mg/dL Glucose 127 H (74-99) mg/dL Calcium 10.1 (8.4-10.2) mg/dL Total Bilirubin 0.9 (0.2-1.3) mg/dL AST 29 (17-59) U/L ALT 27 (4-49) U/L Alkaline Phosphatase 86 (38-126) U/L Total Protein 8.6 H (6.3-8.2) g/dL Albumin 5.1 H (3.5-5.0) g/dL - Imaging CT scan - abdomen: report reviewed, image reviewed Assessment and Plan (1) Small bowel obstruction Current Visit: Yes Status: Acute Code(s): K56.609 - UNSP INTESTNL OBST, UNSP TO PARTIAL VERSUS COMPLETE OBST SNOMED Code(s): 504309649 (2) Abdominal pain Current Visit: No Status: Acute Code(s): R10.9 - UNSPECIFIED ABDOMINAL PAIN SNOMED Code(s): 35671817 Plan: There is no definite transition point noted on CT scan so I would recommend supportive care at this time. Hydrate, bowel rest, serial exam and X-ray. If he has another episode of vomiting, an NG tube should be inserted and he is in agreement. DVT and ulcer prophylaxis. Will follow with you
--- NOTE | 2020-10-26 22:19 | P.HPIM ---
History of Present Illness H&P Date: 10/26/20 Chief Complaint: Abdominal pain, bowel obstruction, infiltrate in the lung bases HISTORY OF PRESENT ILLNESS: 85-year-old male one of Dr. Arce patient with recurrent history of bowel obstruction who is known to have history of asthma, CAD, hyperlipidemia, hypertension, and history of heart disease post angioplasty and stent placement in the past. Patient was in the hospital last time for bowel obstruction over 6 month ago did not require any surgical intervention with supportive care he improve and end up going home without having to do surgery. [facility] complaining of worsening abdominal pain started since yesterday with significant distention with less stooling at the time. [facility] CAT scan of the abdomen and pelvis showed partial small bowel obstruction, surprisingly showed groundglass change [place] attenuation of the lower lung field without pleural effusion also showed fold thickening along the gastric antrum with relative calibered and airway with mildly distended distal esophagus there is also prominent fluid distention of the stomach proximal to mid small bowel loops are dilated up to 4 cm and mild mesenteric edema suggestive of partial obstruction and still able to see with a CAT scan then volatile hernia. Patient did not require any NG tube at this point if continued to have nausea and vomiting might require NG tube will request general surgery consultation for an opinion and series of abdominal x-ray will be done if patient continues to decline might require intervention. REVIEW OF SYSTEMS: Constitutional: No fever, no chills, no night sweats. No weight change. No weakness, fatigue or lethargy. No daytime sleepiness. EENT: No headache. No blurred vision or double vision, no loss of vision. No loss of Hearing, no ringing in the ears, no dizziness. No nasal drainage or congestion. No epistaxis. No sore throat. Lungs: No shortness of breath, cough, no sputum production. No wheezing. Cardiovascular: No chest pain, no lower extremity edema. No palpitations. No paroxysmal nocturnal dyspnea. No orthopnea. No lightheadedness or dizziness. No syncopal episodes. Abdominal: Slight abdominal pain with distention with nausea without vomiting. No diarrhea. No constipation. No bloody or tarry stools.. No loss of appetite. Genitourinary: No dysuria, increased frequency, urgency. No urinary retention. Musculoskeletal: No myalgias. No muscle weakness, no gait dysfunction, no frequent falls. No back pain. No neck pain. Integumentary: No wounds, no lesions. No rash or pruritus. No unusual bruising. No change in hair or nails. Neurologic: No aphasia. No facial droop. No change in mentation. No head injury. No headache. No paralysis. No paresthesia. Psychiatric: No depression. No anxiety. No mood swings. Endocrine: No abnormal blood sugars. No weight change. No excessive sweating or thirst. No cold intolerance. SOCIAL HISTORY: He quit smoking years ago was smoker for few years, no ankle abuse, does not use any BiPAP or 02 at home. FAMILY HISTORY: His mother dying her 80s from possible uterine cancer pulmonary embolism, father dying in his 60s from blood clot with the management of bladder cancer. Patient had 1 brother with history of non-Hodgkin lymphoma he does not have any sister patient has 3 children with no major medical problem. PHYSICAL EXAMINATION: Gen: This is a 85-year-old gentleman does not look in any distress HEENT: Head is atraumatic, normocephalic. Pupils equal, round. Sclerae is anicteric. NECK: Supple. No JVD. No lymphadenopathy. No thyromegaly. LUNGS: Clear to auscultation. No wheezes or rhonchi. No intercostal retractions. HEART: Regular rate and rhythm. No murmur. ABDOMEN: Soft. Slight distention with decreased bowel sound in the mid abdominal area. EXTREMITIES: No pedal edema. No calf tenderness. NEUROLOGICAL: Patient is awake, alert and oriented x3. Cranial nerves 2 through 12 are grossly intact. ASSESSMENT AND PLAN: 1. Abdominal pain: Most likely secondary to bowel resection Mrs. can be partial if worsening symptoms especially watching abdominal series might require intervention. 2. Bowel obstruction: Continue conservative management no NG tube needed this point and to be supportive care and to be watch with general surgery. 3. History of CAD post angioplasty and stent placement in the past patient has been on secondary prevention with metoprolol and atorvastatin resume medication.. 4. Possible esophageal or gastric stenosis and blockage: Picture on x-ray in the CAT scan came back suggestive should be run by general surgery and patient should probably be going for an EGD eventually to find out if there is any problem consistent with any abnormality require intervention, according to patient had EGD last time with Dr. berkowitz a year and half ago that time was negative this reason why still on pantoprazole and Pepcid. 5. Infiltrate or groundglass picture of the lung base not a clear etiology at this point there is no finding suggestive of infiltrate or pneumonia or to the picture patient might be having aspiration can be the cause repeat chest x-ray again in the next 24 hours and if any symptoms was start patient on IV antibiotics. 6. History of asthma: Remain on Singulair and risk inhaler.. 7. History of hepatitis C: Not active at this point. 8.Hypertension: Has been well controlled on Norvasc and metoprolol. 9. Hyperlipidemia: Continue atorvastatin 10 mg daily. 10. GI prophylaxis: Patient will be on pantoprazole. 11. DVT prophylaxis: Patient will be on Lovenox 40 mg daily. 12. CODE STATUS: Full code. 13. COVID-19 testing were negative.. Patient will be admitted to the hospital for a minimum of 2 night stay. Past Medical History Past Medical History: Asthma, Coronary Artery Disease (CAD), Chest Pain / Angina, GERD/Reflux, GI Bleed, Hearing Disorder / Deafness, Hyperlipidemia, Hypertension, Liver Disease, Osteoarthritis (OA) Additional Past Medical History / Comment(s): Recurrent SBO d/t adhesions with conservative treatment and surgical treatment, mild leaky heart valve, bleeding ulcer/lower GI bleed many years ago with exsanguination and stayed in ICU/had transfusions then another less severe lower GI bleed a few years later, upper GI bleed, duodenal ulcer, hiatal hernia, hepatitis C d/t blood transfusion-2nd treatment successful, some recent short term memory issues/tremors in hands and balance issues past few months being worked up, constipation, diverticulitis and past pre cancerous polypectomies-last colonoscopy was normal in 2018, low back pain, L shoulder pain, gout-saw art coordinator in past, 06/2018 shingelles, [place] bilaterally, ventral hernia. History of Any Multi-Drug Resistant Organisms: None Reported Past Surgical History: Bowel Resection, Cholecystectomy, Heart Catheterization With Stent, Orthopedic Surgery Additional Past Surgical History / Comment(s): 06/2018 PCI with stent, 1999 PCI with 2 stents, laparotomy with lysis of adhesions, R rotator cuff repair, R knee arthroscopy, R upper chest lipoma removed, bilateral cataract removals/lens implants, EGD and colonoscopies with pre cancerous polypectomies-last colonoscopy in 2018 was normal per pt. Past Anesthesia/Blood Transfusion Reactions: Blood Transfusion Reaction Additional Past Anesthesia/Blood Transfusion Reaction / Comment(s): CONTRACTED HEP C FROM A BLOOD TRANSFUSION 35-40 YEARS AGO. Date of Last Stent Placement:: JUN 2018 Past Psychological History: No Psychological Hx Reported Additional Psychological History / Comment(s): Pt resides with his spouse. He is independent. He is an [employer] . Smoking Status: Former smoker Past Alcohol Use History: None Reported Additional Past Alcohol Use History / Comment(s): Patient was a smoker from [id number]. He drinks a glass of wine on special occasions. No illicit drug use. Past Drug Use History: None Reported - Past Family History Mother Family Medical History: Cancer Additional Family Medical History / Comment(s): Other at age 80 from acute kidney injury following surgery. Patient had bladder suspension surgery and she developed to have possibly uterine cancer however she ended up with renal failure refused hemodialysis Father Family Medical History: Cancer, Deep Vein Thrombosis (DVT), Pulmonary Embolus Additional Family Medical History / Comment(s): LUNG CANCER. Father in his mid 60s due to blood clots with history of bladder cancer . The cause of pulmonary embolism. Brother(s) Family Medical History: Cancer, Coronary Artery Disease (CAD) Additional Family Medical History / Comment(s): Patient has one brother with history of non-Hodgkin's lymphoma diagnosed 15 YEARS AGO. He does not have any sisters. He has adult children with no major medical problem basically 2 sons and a daughter. Medications and Allergies Home Medications Medication Instructions Recorded Confirmed Type Simvastatin [Zocor] 20 mg PO HS 02/23/14 10/26/20 History Omeprazole 40 mg PO DAILY 02/14/19 10/26/20 History Calcium Citrate/Vitamin D3 1 tab PO DAILY 02/23/20 10/26/20 History [Citracal + D Maximum Caplet] Cyanocobalamin (Vitamin B-12) 1,000 mcg PO MOWEFR 02/23/20 10/26/20 History [Vitamin B-12] Metoprolol Tartrate [Lopressor] 12.5 mg PO BID 02/23/20 10/26/20 History Vitamin B Complex 1 cap PO CLAUDIO 02/23/20 10/26/20 History Montelukast Sodium [Singulair] 10 mg PO HS 03/15/20 10/26/20 History amLODIPine [Norvasc] 5 mg PO DAILY 03/15/20 10/26/20 History Famotidine [Pepcid] 20 mg PO BID PRN 10/26/20 10/26/20 History Lactose-Reduced Food [Boost] 1 can PO DAILY 10/26/20 10/26/20 History Allergies Allergy/AdvReac Type Severity Reaction Status Date / Time Penicillins Allergy Rash/Hives Verified 10/26/20 12:54 prednisone Allergy Rash/Hives Verified 10/26/20 12:54 Physical Exam Vitals: Vital Signs Temp Pulse Pulse Resp BP BP Pulse Ox 10/26/20 20:00 98.3 F 76 16 130/70 92 L 10/26/20 17:10 84 17 10/26/20 15:57 98.1 F 84 17 128/78 93 L 10/26/20 15:10 98.5 F 73 18 127/80 93 L 10/26/20 13:28 73 18 127/80 93 L 10/26/20 12:40 74 18 131/81 93 L 10/26/20 09:42 98.5 F 83 20 132/71 95 Intake and Output 10/26/20 10/26/20 10/26/20 06:59 14:59 22:59 Intake Total 0 Balance 0 Intake: Oral 0 Other: # Voids 3 Weight 73.936 kg Results CBC & Chem 7: 10/26/20 10:37 10/26/20 10:38 Labs: Abnormal Lab Results - Last 24 Hours (Table) 10/26/20 10/26/20 10/26/20 Range/Units 10:37 10:38 15:06 WBC 12.6 H (3.8-10.6) k/uL Hgb 18.6 H (13.0-17.5) gm/dL Neutrophils # 10.4 H (1.3-7.7) k/uL BUN 23 H (9-20) mg/dL Glucose 127 H (74-99) mg/dL Total Protein 8.6 H (6.3-8.2) g/dL Albumin 5.1 H (3.5-5.0) g/dL Ur Specific [place] >1.050 H (1.001-1.035) Urine Protein 1+ H (Negative) Urine Mucus Rare H (None) /hpf Thrombosis Risk Factor Assmnt - Choose All That Apply Each Risk Factor Represents 3 Points: Age 75 years or older Thrombosis Risk Factor Assessment Total Risk Factor Score: 3 Thrombosis Risk Factor Assessment Level: Moderate Risk
[2020-10-27] MEDS: SODIUM CHLORIDE 0.9% 1,000 ML IV SCH ×2 (03:45→21:14)
[2020-10-27] MEDS: ONDANSETRON 4 MG/2 ML VIAL IVP PRN (09:41)
[2020-10-27] MEDS: MORPHINE SULFATE 4 MG/ML SYRINGE IV PRN (09:42)
[2020-10-27] MEDS: PANTOPRAZOLE 40 MG TABLET PO SCH (09:46)
[2020-10-27] MEDS: amLODIPine 5 MG TAB PO SCH (09:47)
[2020-10-27] MEDS: METOPROLOL TARTRATE 12.5 MG TAB PO SCH ×2 (09:47→21:13)
[2020-10-27] MEDS: ENOXAPARIN 40 MG/0.4 ML SYRINGE SQ SCH (09:48)
--- NOTE | 2020-10-27 10:48 | P.PN ---
Subjective Progress Note Date: 10/27/20 HISTORY OF PRESENT ILLNESS: 85-year-old male one of Dr. Arce patient with recurrent history of bowel obstruction who is known to have history of asthma, CAD, hyperlipidemia, hype rtension, and history of heart disease post angioplasty and stent placement in the past. Patient was in the hospital last time for bowel obstruction over 6 month ago did not require any surgical intervention with supportive care he improve and end up going home without having to do surgery. Patient presented to [facility] department on 10/26/2020 complaining of worsening abdominal pain started since yesterday with significant distention with less stooling at the time. Was seen and evaluated the [facility] department CAT scan of the abdomen and pelvis showed partial small bowel obstruction, surprisingly showed groundglass change [place] attenuation of the lower lung field without pleural effusion also showed fold thickening along the gastric antrum with relative calibered and airway with mildly distended distal esophagus there is also prominent fluid distention of the stomach proximal to mid small bowel loops are dilated up to 4 cm and mild mesenteric edema suggestive of partial obstruction and still able to see with a CAT scan then volatile hernia. Patient did not require any NG tube at this point if continued to have nausea and vomiting might require NG tube will request general surgery consultation for an opinion and series of abdominal x-ray will be done if patient continues to d ecline might require intervention. REVIEW OF SYSTEMS: Constitutional: No fever, no chills, no night sweats. No weight change. No weakness, fatigue or lethargy. No daytime sleepiness. EENT: No headache. No blurred vision or double vision, no loss of vision. No loss of Hearing, no ringing in the ears, no dizziness. No nasal drainage or congestion. No epistaxis. No sore throat. Lungs: No shortness of breath, cough, no sputum production. No wheezing. Cardiovascular: No chest pain, no lower extremity edema. No palpitations. No paroxysmal nocturnal dyspnea. No orthopnea. No lightheadedness or dizziness. No syncopal episodes. Abdominal: Slight abdominal pain with distention with nausea without vomiting. No diarrhea. No constipation. No bloody or tarry stools.. No loss of appetite. Genitourinary: No dysuria, increased frequency, urgency. No urinary retention. Musculoskeletal: No myalgias. No muscle weakness, no gait dysfunction, no frequent falls. No back pain. No neck pain. Integumentary: No wounds, no lesions. No rash or pruritus. No unusual bruising. No change in hair or nails. Neurologic: No aphasia. No facial droop. No change in mentation. No head injury. No headache. No paralysis. No paresthesia. Psychiatric: No depression. No anxiety. No mood swings. Endocrine: No abnormal blood sugars. No weight change. No excessive sweating or thirst. No cold intolerance. 3 children with no major medical problem. PHYSICAL EXAMINATION: Gen: This is a 85-year-old gentleman does not look in any distress HEENT: Head is atraumatic, normocephalic. Pupils equal, round. Sclerae is anicteric. NECK: Supple. No JVD. No lymphadenopathy. No thyromegaly. LUNGS: Clear to auscultation. No wheezes or rhonchi. No intercostal retractions. HEART: Regular rate and rhythm. No murmur. ABDOMEN: Soft. Slight distention with decreased bowel sound in the mid abdominal area. EXTREMITIES: No pedal edema. No calf tenderness. NEUROLOGICAL: Patient is awake, alert and oriented x3. Cranial nerves 2 through 12 are grossly intact. ASSESSMENT AND PLAN: 1. Abdominal pain: Most likely partial small bowel obstruction if worsening symptoms especially watching abdominal series might require intervention. Repeat flat abdominal x-ray today patient might start on diet. 2. Bowel obstruction: Continue conservative management no NG tube needed this point and to be supportive care and to be watch with general surgery. 3. History of CAD post angioplasty and stent placement in the past patient has been on secondary prevention with metoprolol and atorvastatin resume medication.. 4. Possible esophageal or gastric stenosis and blockage: Picture on x-ray in the CAT scan came back suggestive should be run by general surgery and patient should probably be going for an EGD eventually to find out if there is any problem consistent with any abnormality require intervention, according to p nate had EGD last time with Dr. berkowitz a year and half ago that time was negative this reason why still on pantoprazole and Pepcid. 5. Infiltrate or groundglass picture of the lung base not a clear etiology at this point there is no finding suggestive of infiltrate or pneumonia or to the picture patient might be having aspiration can be the cause repeat chest x-ray again in the next 24 hours and if any symptoms was start patient on IV antibiotics. 6. History of asthma: Remain on Singulair and risk inhaler.. 7. History of hepatitis C: Not active at this point. 8.Hypertension: Has been well controlled on Norvasc and metoprolol. 9. Hyperlipidemia: Continue atorvastatin 10 mg daily. 10. GI prophylaxis: Patient will be on pantoprazole. 11. DVT prophylaxis: Patient will be on Lovenox 40 mg daily. 12. CODE STATUS: Full code. 13. COVID-19 testing were negative.. Objective - Vital Signs Vital signs: Vital Signs Temp 98.5 F 10/27/20 04:41 Pulse 65 10/27/20 04:41 Resp 18 10/27/20 04:41 BP 130/64 10/27/20 04:41 Pulse Ox 92 L 10/27/20 04:41 Intake & Output 10/26/20 10/26/20 10/27/20 06:59 18:59 06:59 Intake Total 0 Balance 0 Weight 73.936 kg Intake: Oral 0 Other: Voiding Method Toilet # Voids 3 - Labs CBC & Chem 7: 10/26/20 10:37 10/26/20 10:38 Labs: Abnormal Lab Results - Last 24 Hours (Table) 10/26/20 10/26/20 10/26/20 Range/Units 10:37 10:38 15:06 WBC 12.6 H (3.8-10.6) k/uL Hgb 18.6 H (13.0-17.5) gm/dL Neutrophils # 10.4 H (1.3-7.7) k/uL BUN 23 H (9-20) mg/dL Glucose 127 H (74-99) mg/dL Total Protein 8.6 H (6.3-8.2) g/dL Albumin 5.1 H (3.5-5.0) g/dL Ur Specific [place] >1.050 H (1.001-1.035) Urine Protein 1+ H (Negative) Urine Mucus Rare H (None) /hpf
--- NOTE | 2020-10-27 12:44 | XR ---
EXAMINATION TYPE: XR chest 2V DATE OF EXAM: 10/27/2020 COMPARISON: 02/14/2019 HISTORY: 85-year-old male aspiration TECHNIQUE: Frontal and lateral views FINDINGS: Heart normal size. Tortuosity/ectasia of the thoracic aorta is similar. Mild interstitial prominence and mild peribronchial cuffing. No consolidation or pleural effusion. Cholecystectomy clips. IMPRESSION: Some interstitial prominence could reflect bronchitis or chronic asthma. Otherwise, no acute process seen.
--- NOTE | 2020-10-27 12:46 | XR ---
EXAMINATION TYPE: XR abdomen 2V DATE OF EXAM: 10/27/2020 CLINICAL DATA: 85-year-old male small bowel obstruction, [facility] COMPARISON: Correlation CT 10/26/2020 FINDINGS: No evidence for free intraperitoneal air. Cholecystectomy clips. Redemonstrated multiple air-fluid levels and dilated small bowel loops measuring up to 5.1 cm versus 4.9 cm, previously (CT coronal image 12). Positive colonic air. Mild to moderate stool in the rectum. IMPRESSION: Continued small bowel obstruction. Small bowel loops dilated up to 5.1 cm versus 4.9 cm previously.
--- NOTE | 2020-10-27 13:07 | P.PN ---
Subjective Progress Note Date: 10/27/20 Principal diagnosis: Abdominal pain, partial small bowel obstruction The patient feels somewhat better today. No nausea or vomiting. Has some reflux but less than yesterday. Passing very little flatus. He did have a bowel movement this morning. Mild abdominal pain in the upper abdomen, some cramps along lower abdomen today Objective - Vital Signs Vital signs: Vital Signs Temp 97.7 F 10/27/20 11:56 Pulse 59 L 10/27/20 11:56 Resp 16 10/27/20 11:56 BP 132/71 10/27/20 11:56 Pulse Ox 93 L 10/27/20 11:56 Intake & Output 10/26/20 10/27/20 10/27/20 18:59 06:59 18:59 Intake Total 0 900 Balance 0 900 Weight 73.936 kg Intake: Intake, IV Titration 900 Amount Sodium Chloride 0.9% 1, 900 000 ml @ 75 mls/hr IV . [id number] Rx#:[id number] Oral 0 Other: Voiding Method Toilet Toilet # Voids 3 2 - Constitutional General appearance: Present: cooperative, no acute distress - Respiratory Respiratory: bilateral: CTA - Cardiovascular Rhythm: regular - Gastrointestinal General gastrointestinal: Present: distended (softly distended, some tympany to percussion), normal bowel sounds. Absent: tenderness - Psychiatric Psychiatric: Present: A&O x's 3 - Labs CBC & Chem 7: 10/26/20 10:37 10/26/20 10:38 Labs: Abnormal Lab Results - Last 24 Hours (Table) 10/26/20 Range/Units 15:06 Ur Specific [place] >1.050 H (1.001-1.035) Urine Protein 1+ H (Negative) Urine Mucus Rare H (None) /hpf Assessment and Plan (1) Small bowel obstruction Current Visit: Yes Status: Acute Code(s): K56.609 - UNSP INTESTNL OBST, UNSP TO PARTIAL VERSUS COMPLETE OBST SNOMED Code(s): 693591088 (2) Abdominal pain Current Visit: No Status: Acute Code(s): R10.9 - UNSPECIFIED ABDOMINAL PAIN SNOMED Code(s): 93320329 Plan: Continue bowel rest. Hydrate. Serial exam. Encourage ambulation in room. X- ray is currently not improved. There is stool and air in colon, so likely partial obstruction. Hopefully this will resolve without surgery
[2020-10-27] MEDS: ATORVASTATIN 10 MG TAB PO SCH (21:13)
[2020-10-27] MEDS: MONTELUKAST 10 MG TAB PO SCH (21:13)
[2020-10-28] MEDS: SODIUM CHLORIDE 0.9% 1,000 ML IV SCH ×2 (04:54→19:26)
[2020-10-28 08:56] LABS: HCT 43.1 % (39.6-50.0); HGB 14.3 g/dL (13.0-17.0); MCH 31.3 pg (27.0-32.0); MCHC 33.2 g/dL (32.0-37.0); MCV 94.3 fL (80.0-97.0); Mean Platelet Volume 9.9 fL (9.5-12.2); Platelet Count 191 X 10*3/uL (140-440); RBC 4.57 X 10*6/uL (4.40-5.60); RDW 13.2 % (11.5-14.5); WBC 9.21 X 10*3/uL (4.50-10.00)
[2020-10-28] MEDS: ONDANSETRON 4 MG/2 ML VIAL IVP PRN ×2 (09:18→19:24)
[2020-10-28] MEDS: PANTOPRAZOLE 40 MG TABLET PO SCH (10:35)
[2020-10-28] MEDS: amLODIPine 5 MG TAB PO SCH (10:35)
[2020-10-28] MEDS: METOPROLOL TARTRATE 12.5 MG TAB PO SCH ×2 (10:35→20:22)
[2020-10-28] MEDS: ENOXAPARIN 40 MG/0.4 ML SYRINGE SQ SCH (10:35)
[2020-10-28 11:46] LABS: African American GFR (CKD) 71.6 (60.0-200.0); Albumin 3.9 g/dL (3.80-4.90); Albumin/Globulin Ratio 2.29 (1.60-3.17); Anion Gap 8.2 mmol/L (4.00-12.00); BUN/Creat Ratio 18.18 Ratio (12.00-20.00); Calcium 8.5 mg/dL (8.7-10.3); Carbon Dioxide 22.8 mmol/L (21.6-31.8); Globulin 1.7 g/dL (1.6-3.3); Non-African American GFR(CKD) 61.8 (60.0-200.0); Potassium 4.4 mmol/L (3.5-5.5); Total Bilirubin 0.8 mg/dL (0.3-1.2); Total Protein 5.6 g/dL (6.2-8.2)
--- NOTE | 2020-10-28 12:16 | P.PN ---
Subjective Progress Note Date: 10/28/20 HISTORY OF PRESENT ILLNESS: 85-year-old male one of Dr. Arce patient with recurrent history of bowel obstruction who is known to have history of asthma, CAD, hyperlipidemia, hype rtension, and history of heart disease post angioplasty and stent placement in the past. Patient was in the hospital last time for bowel obstruction over 6 month ago did not require any surgical intervention with supportive care he improve and end up going home without having to do surgery. Patient presented to [facility] department on 10/26/2020 complaining of worsening abdominal pain started since yesterday with significant distention with less stooling at the time. Was seen and evaluated the [facility] department CAT scan of the abdomen and pelvis showed partial small bowel obstruction, surprisingly showed groundglass change [place] attenuation of the lower lung field without pleural effusion also showed fold thickening along the gastric antrum with relative calibered and airway with mildly distended distal esophagus there is also prominent fluid distention of the stomach proximal to mid small bowel loops are dilated up to 4 cm and mild mesenteric edema suggestive of partial obstruction and still able to see with a CAT scan then volatile hernia. Patient did not require any NG tube at this point if continued to have nausea and vomiting might require NG tube will request general surgery consultation for an opinion and series of abdominal x-ray will be done if patient continues to d ecline might require intervention. 10/28: Patient is seen today ambulating in the hallway with physical therapy and doing well. He did have a bowel movement this morning. He is currently nothing by mouth. There is a concern that patient needs to undergo EGD due to findings on the CAT scan. Await surgical input regarding this. Diet advanced to clear liquids today. Anticipate possible discharge tomorrow depending on whether patient undergoes EGD during this hospitalization. He has been afebrile, heart rate 67, blood pressure 122/54, pulse ox 97% on room air. CBC is all normal. Electrolytes, renal functions normal. REVIEW OF SYSTEMS: Constitutional: No fever, no chills, no night sweats. No weight change. No weakness, fatigue or lethargy. No daytime sleepiness. EENT: No headache. No blurred vision or double vision, no loss of vision. No loss of Hearing, no ringing in the ears, no dizziness. No nasal drainage or congestion. No epistaxis. No sore throat. Lungs: No shortness of breath, cough, no sputum production. No wheezing. Cardiovascular: No chest pain, no lower extremity edema. No palpitations. No paroxysmal nocturnal dyspnea. No orthopnea. No lightheadedness or dizziness. No syncopal episodes. Abdominal: Slight abdominal pain with distention with nausea without vomiting. No diarrhea. No constipation. No bloody or tarry stools.. No loss of appetite. Genitourinary: No dysuria, increased frequency, urgency. No urinary retention. Musculoskeletal: No myalgias. No muscle weakness, no gait dysfunction, no frequent falls. No back pain. No neck pain. Integumentary: No wounds, no lesions. No rash or pruritus. No unusual br uising. No change in hair or nails. Neurologic: No aphasia. No facial droop. No change in mentation. No head injury. No headache. No paralysis. No paresthesia. Psychiatric: No depression. No anxiety. No mood swings. Endocrine: No abnormal blood sugars. PHYSICAL EXAMINATION: Gen: This is a 85-year-old gentleman does not look in any distress HEENT: Head is atraumatic, normocephalic. Pupils equal, round. Sclerae is anicteric. NECK: Supple. No JVD. No lymphadenopathy. No thyromegaly. LUNGS: Clear to auscultation. No wheezes or rhonchi. No intercostal retraction s. HEART: Regular rate and rhythm. No murmur. ABDOMEN: Soft. No significant tenderness. EXTREMITIES: No pedal edema. No calf tenderness. NEUROLOGICAL: Patient is awake, alert and oriented x3. Cranial nerves 2 through 12 are grossly intact. ASSESSMENT AND PLAN: 1. Abdominal pain: Most likely partial small bowel obstruction if worsening symptoms especially watching abdominal series might require intervention. Clear liquid diet. 2. Bowel obstruction. General surgery consult appreciated. Continue conservative management.. 3. History of CAD post angioplasty and stent placement in the past patient has been on secondary prevention with metoprolol and atorvastatin resume medication.. 4. Possible esophageal or gastric stenosis and blockage: Picture on x-ray in the CAT scan came back suggestive should be run by general surgery and patient should probably be going for an EGD eventually to find out if there is any problem consistent with any abnormality require intervention, according to patient had EGD last time with Dr. berkowitz a year and half ago that time was negative this reason why still on pantoprazole and Pepcid. 5. Infiltrate or groundglass picture of the lung base not a clear etiology at this point there is no finding suggestive of infiltrate or pneumonia or to the picture patient might be having aspiration can be the cause repeat chest x-ray again in the next 24 hours and if any symptoms was start patient on IV antibiotics. 6. History of asthma: Remain on Singulair and risk inhaler.. 7. History of hepatitis C: Not active at this point. 8.Hypertension: Has been well controlled on Norvasc and metoprolol. 9. Hyperlipidemia: Continue atorvastatin 10 mg daily. 10. GI prophylaxis: Patient will be on pantoprazole. 11. DVT prophylaxis: Patient will be on Lovenox 40 mg daily. 12. CODE STATUS: Full code. 13. COVID-19 testing were negative. Discharge plan: Home tomorrow Impression and plan of care have been directed as dictated by the signing physician. Susi Cardona nurse practitioner acting as scribe for signing physician. Objective - Vital Signs Vital signs: Vital Signs Temp 98.4 F 10/28/20 05:00 Pulse 67 10/28/20 05:00 Resp 20 10/28/20 05:00 BP 122/54 10/28/20 05:00 Pulse Ox 97 10/28/20 05:00 Intake & Output 10/27/20 10/28/20 10/28/20 18:59 06:59 18:59 Intake Total 240 900 Output Total 400 Balance 240 500 Intake: Intake, IV Titration 900 Amount Sodium Chloride 0.9% 1, 900 000 ml @ 75 mls/hr IV . [id number] [facility] Rx#:[id number] Oral 240 0 Output: Urine 400 Other: Voiding Method Toilet # Voids 3 # Bowel Movements 1 - Labs CBC & Chem 7: 10/28/20 06:22 10/28/20 06:22
--- NOTE | 2020-10-28 12:17 | P.PN ---
Subjective Progress Note Date: 10/28/20 Principal diagnosis: Abdominal pain, partial small bowel obstruction The patient is seen on rounds. Feeling somewhat better today. Less bloating. He began passing flatus last night. Has had several liquid bowel movements this morning. No nausea, vomiting or heartburn. Objective - Vital Signs Vital signs: Vital Signs Temp 98.4 F 10/28/20 05:00 Pulse 67 10/28/20 05:00 Resp 20 10/28/20 05:00 BP 122/54 10/28/20 05:00 Pulse Ox 97 10/28/20 05:00 Intake & Output 10/27/20 10/28/20 10/28/20 18:59 06:59 18:59 Intake Total 240 900 Output Total 400 250 Balance 240 500 -250 Intake: Intake, IV Titration 900 Amount Sodium Chloride 0.9% 1, 900 000 ml @ 75 mls/hr IV . [id number] [facility] Rx#:[id number] Oral 240 0 Output: Urine 400 250 Other: Voiding Method Toilet # Voids 3 1 # Bowel Movements 1 2 - Constitutional General appearance: Present: cooperative, no acute distress - Respiratory Respiratory: bilateral: CTA - Cardiovascular Rhythm: regular - Gastrointestinal General gastrointestinal: Present: distended (Somewhat softer than yesterday, still tympany to percussion), normal bowel sounds, tenderness (Minimal nonspecific) - Labs CBC & Chem 7: 10/28/20 06:22 10/28/20 06:22 Labs: Abnormal Lab Results - Last 24 Hours (Table) 10/28/20 Range/Units 06:22 Calcium 8.5 L (8.7-10.3) mg/dL Total Protein 5.6 L (6.2-8.2) g/dL Assessment and Plan (1) Small bowel obstruction Current Visit: Yes Status: Acute Code(s): K56.609 - UNSP INTESTNL OBST, UNSP TO PARTIAL VERSUS COMPLETE OBST SNOMED Code(s): 041192820 (2) Abdominal pain Current Visit: No Status: Acute Code(s): R10.9 - UNSPECIFIED ABDOMINAL PAIN SNOMED Code(s): 76327628 Plan: The patient is still fairly distended. We will do a trial of clear liquids. If he is unable to tolerate that, would seriously need to consider laparotomy with lysis of adhesions. I'll recheck him later today.
--- NOTE | 2020-10-28 14:26 | P.PN ---
Progress Note - Text Progress Note Date: 10/28/20 The patient has tolerated clear liquids so far. His diet can be advanced in the morning and would likely be okay for discharge if he tolerates that. The patient did have both an EGD and colonoscopy in February 2019. There was one small adenomatous polyp in the colon. The stomach showed chemical gastritis. No need for repeat EGD during this hospital stay, will consider it as outpatient
[2020-10-28] MEDS: MORPHINE SULFATE 4 MG/ML SYRINGE IV PRN (19:22)
[2020-10-28] MEDS: MONTELUKAST 10 MG TAB PO SCH (20:22)
[2020-10-28] MEDS: ATORVASTATIN 10 MG TAB PO SCH (20:22)
[2020-10-29] MEDS: SODIUM CHLORIDE 0.9% 1,000 ML IV SCH (04:29)
[2020-10-29 04:31] VITALS: BP 146/70; PULSE 57; RESP 18; TEMP 98.6
[2020-10-29] MEDS: METOPROLOL TARTRATE 12.5 MG TAB PO SCH (08:48)
[2020-10-29] MEDS: ENOXAPARIN 40 MG/0.4 ML SYRINGE SQ SCH (08:49)
[2020-10-29] MEDS: PANTOPRAZOLE 40 MG TABLET PO SCH (08:49)
[2020-10-29] MEDS: amLODIPine 5 MG TAB PO SCH (08:49)
--- NOTE | 2020-10-29 09:52 | P.DS ---
Providers Date of admission: 10/26/20 12:43 Expected date of discharge: 10/29/20 Attending physician: Clementine Arce MD Consults: 10/26/20 12:48 Consult Physician Urgent Consulting Provider: Estiven Fernandez Consult Reason/Comments: Small bowel obstruction Do you want consulting provider notified?: Yes Primary care physician: Clementine Arce MD Hospital Course: HISTORY OF PRESENT ILLNESS: 85-year-old male one of Dr. Arce patient with recurrent history of bowel obstruction who is known to have history of asthma, CAD, hyperlipidemia, hypertension, and history of heart disease post angioplasty and stent placement in the past. Patient was in the hospital last time for bowel obstruction over 6 month ago did not require any surgical intervention with supportive care he improve and end up going home without having to do surgery. Patient presented to [facility] department on 10/26/2020 complaining of worsening abdominal pain started since yesterday with significant distention with less stooling at the time. Was seen and evaluated the [facility] CAT scan of the abdomen and pelvis showed partial small bowel obstruction, surprisingly showed groundglass change [place] attenuation of the lower lung field without pleural effusion also showed fold thickening along the gastric antrum with relative calibered and airway with mildly distended distal esophagus there is also prominent fluid distention of the stomach proximal to mid small bowel loops are dilated up to 4 cm and mild mesenteric edema suggestive of partial obstruction and still able to see with a CAT scan then volatile hernia. Patient did not require any NG tube at this point if continued to have nausea and vomiting might require NG tube will request general surgery consultation for an opinion and series of abdominal x-ray will be done if patient continues to decline might require intervention. 10/28: Patient is seen today ambulating in the hallway with physical therapy and doing well. He did have a bowel movement this morning. He is currently nothing by mouth. There is a concern that patient needs to undergo EGD due to findings on the CAT scan. Await surgical input regarding this. Diet advanced to clear liquids today. Anticipate possible discharge tomorrow depending on whether patient undergoes EGD during this hospitalization. He has been afebrile, heart rate 67, blood pressure 122/54, pulse ox 97% on room air. CBC is all normal. Electrolytes, renal functions normal. 10/29: The patient has been afebrile, heart rate 57, blood pressure 146/70, pulse ox 92% on room air. Patient had 2 bowel movements yesterday afternoon which he states was liquid. Patient is on a low fiber diet starting this morning and he tolerated diet. He denies any nausea or vomiting. Dr. Maxwell address the EGD issue and will plan to evaluate need as an outpatient. Patient has been cleared for discharge by general surgery. Patient will be discharged today in stable condition.. ASSESSMENT AND PLAN: 1. Abdominal pain: Most likely partial small bowel obstruction. 2. Bowel obstruction. . 3. History of CAD post angioplasty and stent placement in the past patient has been on secondary prevention. 4. Possible esophageal or gastric stenosis and blockage. 5. Infiltrate or groundglass picture of the lung base not a clear etiology, clinically no pneumonia. 6. History of mild intermittent asthma. 7. History of hepatitis C. 8. Hypertension. 9. Hyperlipidemia. Discharge plan: Home Impression and plan of care have been directed as dictated by the signing physician. Susi Cardona nurse practitioner acting as scribe for signing physician. Patient Condition at Discharge: Good Plan - Discharge Summary New Discharge Prescriptions: Continue Simvastatin [Zocor] 20 mg PO HS Omeprazole 40 mg PO DAILY Metoprolol Tartrate [Lopressor] 12.5 mg PO BID Cyanocobalamin (Vitamin B-12) [Vitamin B-12] 1,000 mcg PO MOWEFR Vitamin B Complex 1 cap PO CLAUDIO Calcium Citrate/Vitamin D3 [Citracal + D Maximum Caplet] 1 tab PO DAILY amLODIPine [Norvasc] 5 mg PO DAILY Montelukast Sodium [Singulair] 10 mg PO HS Famotidine [Pepcid] 20 mg PO BID PRN PRN Reason: Gi Upset Lactose-Reduced Food [Boost] 1 can PO DAILY Discharge Medication List Simvastatin [Zocor] 20 mg PO HS 02/23/14 [History] Omeprazole 40 mg PO DAILY 02/14/19 [History] Calcium Citrate/Vitamin D3 [Citracal + D Maximum Caplet] 1 tab PO DAILY 02/23/20 [History] Cyanocobalamin (Vitamin B-12) [Vitamin B-12] 1,000 mcg PO MOWEFR 02/23/20 [History] Metoprolol Tartrate [Lopressor] 12.5 mg PO BID 02/23/20 [History] Vitamin B Complex 1 cap PO CLAUDIO 02/23/20 [History] Montelukast Sodium [Singulair] 10 mg PO HS 03/15/20 [History] amLODIPine [Norvasc] 5 mg PO DAILY 03/15/20 [History] Famotidine [Pepcid] 20 mg PO BID PRN 10/26/20 [History] Lactose-Reduced Food [Boost] 1 can PO DAILY 10/26/20 [History] Follow up Appointment(s)/Referral(s): Clementine Arce MD [Primary Care Provider] - 11/04/20 8:45 am Alysia Maxwell DO [Doctor of Osteopathic Medicine] - As Needed Patient Instructions/Handouts: Bowel Obstruction (DC)
--- NOTE | 2020-10-29 10:01 | CDI ---
Documentation Clarification Form Date: 10/29/2020 09:50:26 AM From: Yoanna HamiltonJOSE batista, CCDS Admit Date: 10/26/2020 12:43:00 PM Patient Name: Benjy Snow Visit Number: [id number] Discharge Date: ATTENTION: The Clinical Documentation Specialists (CDI) and [facility] Coding Staff appreciate your assistance in clarifying documentation. Please respond to the clarification below the line at the bottom and electronically sign. The CDI & [facility] Coding staff will review the response and follow-up if needed. Please note: Queries are made part of the Legal Health Record. If you have any questions, please contact the author of this message via ITS. Dr. Steven Rice: Asthma is documented in the 10/26 History & Physical: "History of asthma: Remains on Singulair and risk inhaler." Additional clarification regarding the type of asthma is requested. 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 Former Smoker. Clinical Indicators: Presented to the ED with Abdominal pain & vomiting with concern for bowel obstruction. Home meds: Zocor, Omeprazole, Aspirin low dose, Vit D3, Vit B12, Lopressor, Vit B, Singulair, Norvasc, Protonix 10/26 VS: T 98.5, P 83, R 20, BP 132/71, PO 95 - 93 RA, BMI: 27.1 10/26 LAB: WBC 12.6, Hgb 18.6, Neut 10.4, BUN 23, gluc 127, total protein 8.6, Albumin 5.1 10/27 CXR: Some interstitial prominence could reflect bronchitis or chronic asthma. Treatment 10/26: IV Morphine, IV Zofran, IV fluid bolus 500 mls @ 999 mls/hr q31M, IV Zofran 4 mg q8Hr PRN, IV fluid 1,000 mls @ 75 mls/hr q13H. 10/27: po Singulair ordered (not given). Please clarify the type and severity of asthma, if known: [ xx ] Mild intermittent asthma [ ] without exacerbation [ ] Mild persistent asthma [ ] without exacerbation [ ] Moderate persistent asthma [ ] without exacerbation [ ] Other, please specify ____ [ ] Unable to determine (Template Last Revised: September 2020) MTDD
== END 2020-10-29 12:25 | disposition home or self-care (01) | DRG 390 ==
LOC: EC 09:40 → 6NMEDSUR 12:43 → 5NMEDONC 13:13
PROVIDERS: ADMIT Internal Medicine; ATTEND Internal Medicine
DX: K56.600 Partial intestinal obstruction, unspecified as to cause (principal); I25.10 Atherosclerotic heart disease of native coronary artery without angina pectoris; K21.9 Gastro-esophageal reflux disease without esophagitis; J45.20 Mild intermittent asthma, uncomplicated; H91.90 Unspecified hearing loss, unspecified ear; E78.5 Hyperlipidemia, unspecified; I10 Essential (primary) hypertension; Z20.822 Contact with and (suspected) exposure to COVID-19; K42.9 Umbilical hernia without obstruction or gangrene; Z96.1 Presence of intraocular lens; M19.90 Unspecified osteoarthritis, unspecified site; Z87.19 Personal history of other diseases of the digestive system; Z90.49 Acquired absence of other specified parts of digestive tract; Z95.5 Presence of coronary angioplasty implant and graft; Z98.42 Cataract extraction status, left eye; Z98.41 Cataract extraction status, right eye; Z86.010 Personal history of colon polyps; Z87.891 Personal history of nicotine dependence; Z80.49 Family history of malignant neoplasm of other genital organs; Z80.1 Family history of malignant neoplasm of trachea, bronchus and lung; Z80.52 Family history of malignant neoplasm of bladder; Z80.7 Family history of other malignant neoplasms of lymphoid, hematopoietic and related tissues; Z82.49 Family history of ischemic heart disease and other diseases of the circulatory system; Z83.2 Family history of diseases of the blood and blood-forming organs and certain disorders involving the immune mechanism; Z88.0 Allergy status to penicillin; Z88.8 Allergy status to other drugs, medicaments and biological substances; Z79.82 Long term (current) use of aspirin; Z79.899 Other long term (current) drug therapy; Z86.19 Personal history of other infectious and parasitic diseases
CPT/HCPCS: 36415; 71046; 74019; 74177; 80053; 81001; 82150; 83605; 83690; 85025; 85027; 85730; 87635; 96361; 96374; 96375; 99285

== ENCOUNTER 2021-01-28 15:15 | Inpatient (IN) | payer MEDICARE ==
[2021-01-28] MEDS ORDERED: ONDANSETRON 4 MG/2 ML VIAL IVP STA (15:46)
[2021-01-28] MEDS ORDERED: MORPHINE SULFATE 4 MG/ML SYRINGE IVP STA (15:46)
--- NOTE | 2021-01-28 15:57 | ED ---
Abdominal Pain HPI - General Chief Complaint: Abdominal Pain Stated Complaint: Abd pain Time Seen by Provider: 01/28/21 15:40 Source: patient Mode of arrival: ambulatory Limitations: no limitations - History of Present Illness Initial Comments: 85-year-old male with history of bowel structure presents emergency per with a chief complaint of possible bowel obstruction. Patient reports he has developed belching and upper abdominal distention. States he feels like he is developing on the bowel instruction. He does have history of multiple once prior to this. He does have history of cholecystectomy for many decades ago. States he does have nausea with vomiting over the last day. He denies any constipation or diarrhea. States he still able to pass gas. He denies any fevers or chills. Denies any back pain chest pain shortness of breath. Denies any infectious or obstructive urinary symptoms. - Related Data Home Medications Medication Instructions Recorded Confirmed Simvastatin [Zocor] 20 mg PO HS 02/23/14 01/28/21 Omeprazole 40 mg PO DAILY 02/14/19 01/28/21 Calcium Citrate/Vitamin D3 1 tab PO DAILY 02/23/20 01/28/21 [Citracal + D Maximum Caplet] Cyanocobalamin (Vitamin B-12) 1,000 mcg PO MOWEFR 02/23/20 01/28/21 [Vitamin B-12] Metoprolol Tartrate [Lopressor] 12.5 mg PO BID 02/23/20 01/28/21 Vitamin B Complex 1 cap PO CLAUDIO 02/23/20 01/28/21 Montelukast Sodium [Singulair] 10 mg PO HS 03/15/20 01/28/21 Aspirin EC [Ecotrin Low Dose] 81 mg PO DAILY 01/28/21 01/28/21 Cetirizine HCl [Zyrtec] 10 mg PO DAILY 01/28/21 01/28/21 Docusate [Colace] 100 mg PO DAILY 01/28/21 01/28/21 Allergies Allergy/AdvReac Type Severity Reaction Status Date / Time atenolol Allergy Syncope Verified 01/28/21 18:02 Penicillins Allergy Rash/Hives Verified 01/28/21 16:17 prednisone Allergy Rash/Hives Verified 01/28/21 16:17 Review of Systems ROS Statement: Those systems with pertinent positive or pertinent negative responses have been documented in the HPI. ROS Other: All systems not noted in ROS Statement are negative. Past Medical History Past Medical History: Asthma, Coronary Artery Disease (CAD), Chest Pain / Angina, GERD/Reflux, GI Bleed, Hearing Disorder / Deafness, Hyperlipidemia, Hypertension, Liver Disease, Osteoarthritis (OA) Additional Past Medical History / Comment(s): Recurrent SBO d/t adhesions with conservative treatment and surgical treatment, mild leaky heart valve, bleeding ulcer/lower GI bleed many years ago with exsanguination and stayed in ICU/had transfusions then another less severe lower GI bleed a few years later, upper GI bleed, duodenal ulcer, hiatal hernia, hepatitis C d/t blood transfusion-2nd treatment successful, some recent short term memory issues/tremors in hands and balance issues past few months being worked up, constipation, diverticulitis and past pre cancerous polypectomies-last colonoscopy was normal in 2018, low back pain, L shoulder pain, 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 History of Any Multi-Drug Resistant Organisms: None Reported Past Surgical History: Bowel Resection, Cholecystectomy, Heart Catheterization With Stent, Orthopedic Surgery Additional Past Surgical History / Comment(s): 06/2018 PCI with stent, 1999 PCI with 2 stents, laparotomy with lysis of adhesions, R rotator cuff repair, R knee arthroscopy, R upper chest lipoma removed, bilateral cataract removals/lens implants, EGD and colonoscopies with pre cancerous polypectomies-last colonoscopy in 2018 was normal per pt. Past Anesthesia/Blood Transfusion Reactions: Blood Transfusion Reaction Additional Past Anesthesia/Blood Transfusion Reaction / Comment(s): CONTRACTED HEP C FROM A BLOOD TRANSFUSION 35-40 YEARS AGO. Date of Last Stent Placement:: JUN 2018 Past Psychological History: No Psychological Hx Reported Smoking Status: Former smoker Past Alcohol Use History: None Reported Past Drug Use History: None Reported - Past Family History Mother Family Medical History: Cancer Additional Family Medical History / Comment(s): Other at age 80 from acute kidney injury following surgery. Patient had bladder suspension surgery and she developed to have possibly uterine cancer however she ended up with renal failure refused hemodialysis Father Family Medical History: Cancer, Deep Vein Thrombosis (DVT), Pulmonary Embolus Additional Family Medical History / Comment(s): LUNG CANCER. Father in his mid 60s due to blood clots with history of bladder cancer . The cause of pulmonary embolism. Brother(s) Family Medical History: Cancer, Coronary Artery Disease (CAD) Additional Family Medical History / Comment(s): Patient has one brother with history of non-Hodgkin's lymphoma diagnosed 15 YEARS AGO. He does not have any sisters. He has adult children with no major medical problem basically 2 sons and a daughter. General Exam Limitations: no limitations General appearance: alert, in no apparent distress Head exam: Present: atraumatic, normocephalic, normal inspection Eye exam: Present: normal appearance, PERRL, EOMI Pupils: Present: normal accommodation ENT exam: Present: normal exam, normal oropharynx, mucous membranes moist Neck exam: Present: normal inspection, full ROM. Absent: tenderness, lymphadenopathy Respiratory exam: Present: normal lung sounds bilaterally. Absent: respiratory distress Cardiovascular Exam: Present: regular rate, normal rhythm, normal heart sounds. Absent: systolic murmur GI/Abdominal exam: Present: soft, distended, tenderness (Upper abdominal tenderness), normal bowel sounds. Absent: guarding, rebound, rigid Extremities exam: Present: normal inspection, full ROM, normal capillary refill. Absent: tenderness, pedal edema, joint swelling Back exam: Present: normal inspection, full ROM. Absent: tenderness, CVA tenderness (R), CVA tenderness (L) Neurological exam: Present: alert, oriented X3 Psychiatric exam: Present: normal affect, normal mood Skin exam: Present: warm, dry, intact, normal color Course Vital Signs 01/28/21 01/28/21 15:28 16:51 Temperature 98.2 F 98.9 F Pulse Rate 74 80 Respiratory 18 18 Rate Blood Pressure 141/85 125/81 O2 Sat by Pulse 97 94 L Oximetry Medical Decision Making - Medical Decision Making 85-year-old male with history of bowel structure presents emergency per with a chief complaint of possible bowel obstruction. On physical examination, patient is well-appearing but he does have upper abdominal tenderness. KUB showed no acute findings. CBC revealed leukocytosis of 14,000. Likely reactive from the vomiting. Rest of laboratory work is unremarkable. CT of abdomen and pelvis shows a partial small bowel mechanical obstruction in the right mid abdomen. I spoke with : Admit the patient. He also recommended NG tube, IV fluids, IV pain medication and antibiotic. Patient does have ALLERGY to penicillins. I spoke with inpatient pharmacist who recommended kefzol and Flagyl instead. Case discussed with Dr. Dawood Lux on consult - Lab Data Result diagrams: 01/28/21 15:59 01/28/21 15:59 Lab Results 01/28/21 01/28/21 01/28/21 Range/Units 15:59 15:59 15:59 WBC 14.0 H (3.8-10.6) k/uL RBC 5.30 (4.30-5.90) m/uL Hgb 16.7 (13.0-17.5) gm/dL Hct 48.7 (39.0-53.0) % MCV 91.9 (80.0-100.0) fL MCH 31.5 (25.0-35.0) pg MCHC 34.3 (31.0-37.0) g/dL RDW 13.0 (11.5-15.5) % Plt Count 248 (150-450) k/uL MPV 6.8 Neutrophils % 78 % Lymphocytes % 12 % Monocytes % 6 % Eosinophils % 2 % Basophils % 1 % Neutrophils # 10.9 H (1.3-7.7) k/uL Lymphocytes # 1.6 (1.0-4.8) k/uL Monocytes # 0.9 (0-1.0) k/uL Eosinophils # 0.3 (0-0.7) k/uL Basophils # 0.1 (0-0.2) k/uL Sodium 141 (137-145) mmol/L Potassium 4.2 (3.5-5.1) mmol/L Chloride 104 (98-107) mmol/L Carbon Dioxide 26 (22-30) mmol/L Anion Gap 11 mmol/L BUN 19 (9-20) mg/dL Creatinine 1.18 (0.66-1.25) mg/dL Est GFR (CKD-EPI)AfAm 66 (>60 ml/min/1.73 sqM) Est GFR (CKD-EPI)NonAf 57 (>60 ml/min/1.73 sqM) Glucose 126 H (74-99) mg/dL Plasma Lactic Acid Luiz (0.7-2.0) mmol/L Calcium 9.8 (8.4-10.2) mg/dL Total Bilirubin 0.6 (0.2-1.3) mg/dL AST 33 (17-59) U/L ALT 29 (4-49) U/L Alkaline Phosphatase 79 (38-126) U/L Total Protein 7.6 (6.3-8.2) g/dL Albumin 4.8 (3.5-5.0) g/dL Lipase 42 (23-300) U/L Urine Color Yellow Urine Appearance Clear (Clear) Urine pH 6.0 (5.0-8.0) Ur Specific [place] 1.029 (1.001-1.035) Urine Protein 2+ H (Negative) Urine Glucose (UA) Negative (Negative) Urine Ketones Negative (Negative) Urine Blood Negative (Negative) Urine Nitrite Negative (Negative) Urine Bilirubin Negative (Negative) Urine Urobilinogen <2.0 (<2.0) mg/dL Ur Leukocyte Esterase Negative (Negative) Urine RBC 1 (0-5) /hpf Urine WBC 1 (0-5) /hpf Ur Squamous Epith Cells <1 (0-4) /hpf Hyaline Casts 1 (0-2) /lpf Urine Mucus Few H (None) /hpf 01/28/21 Range/Units 15:59 WBC (3.8-10.6) k/uL RBC (4.30-5.90) m/uL Hgb (13.0-17.5) gm/dL Hct (39.0-53.0) % MCV (80.0-100.0) fL MCH (25.0-35.0) pg MCHC (31.0-37.0) g/dL RDW (11.5-15.5) % Plt Count (150-450) k/uL MPV Neutrophils % % Lymphocytes % % Monocytes % % Eosinophils % % Basophils % % Neutrophils # (1.3-7.7) k/uL Lymphocytes # (1.0-4.8) k/uL Monocytes # (0-1.0) k/uL Eosinophils # (0-0.7) k/uL Basophils # (0-0.2) k/uL Sodium (137-145) mmol/L Potassium (3.5-5.1) mmol/L Chloride (98-107) mmol/L Carbon Dioxide (22-30) mmol/L Anion Gap mmol/L BUN (9-20) mg/dL Creatinine (0.66-1.25) mg/dL Est GFR (CKD-EPI)AfAm (>60 ml/min/1.73 sqM) Est GFR (CKD-EPI)NonAf (>60 ml/min/1.73 sqM) Glucose (74-99) mg/dL Plasma Lactic Acid Luiz 1.3 (0.7-2.0) mmol/L Calcium (8.4-10.2) mg/dL Total Bilirubin (0.2-1.3) mg/dL AST (17-59) U/L ALT (4-49) U/L Alkaline Phosphatase (38-126) U/L Total Protein (6.3-8.2) g/dL Albumin (3.5-5.0) g/dL Lipase (23-300) U/L Urine Color Urine Appearance (Clear) Urine pH (5.0-8.0) Ur Specific [place] (1.001-1.035) Urine Protein (Negative) Urine Glucose (UA) (Negative) Urine Ketones (Negative) Urine Blood (Negative) Urine Nitrite (Negative) Urine Bilirubin (Negative) Urine Urobilinogen (<2.0) mg/dL Ur Leukocyte Esterase (Negative) Urine RBC (0-5) /hpf Urine WBC (0-5) /hpf Ur Squamous Epith Cells (0-4) /hpf Hyaline Casts (0-2) /lpf Urine Mucus (None) /hpf Disposition Clinical Impression: Small bowel obstruction Disposition: ADMITTED IP TO THIS HOSP Condition: Fair Is patient prescribed a controlled substance at d/c from ED?: No Referrals: Clementine Arce MD [Primary Care Provider] - 1-2 days Time of Disposition: 18:32
[2021-01-28 16:18] LABS: Basophils # (A) 0.1 k/uL (0-0.2); Basophils % (A) 1 %; Eosinophils # (A) 0.3 k/uL (0-0.7); Eosinophils % (A) 2 %; HCT 48.7 % (39.0-53.0); HGB 16.7 gm/dL (13.0-17.5); Lymphocytes # (A) 1.6 k/uL (1.0-4.8); Lymphocytes % (A) 12 %; MCH 31.5 pg (25.0-35.0); MCHC 34.3 g/dL (31.0-37.0); MCV 91.9 fL (80.0-100.0); Mean Platelet Volume 6.8; Monocytes # (A) 0.9 k/uL (0-1.0); Monocytes % (A) 6 %; Neutrophils # (A) 10.9 k/uL (1.3-7.7); Neutrophils % (A) 78 %; Platelet Count 248 k/uL (150-450)
[2021-01-28 16:27] LABS: Albumin 4.8 g/dL (3.5-5.0); Calcium 9.8 mg/dL (8.4-10.2); Potassium 4.2 mmol/L (3.5-5.1); Total Bilirubin 0.6 mg/dL (0.2-1.3); Total Protein 7.6 g/dL (6.3-8.2)
--- NOTE | 2021-01-28 16:29 | XR ---
EXAMINATION TYPE: XR KUB DATE OF EXAM: 01/28/2021 4:25 PM CLINICAL HISTORY: Nausea and abdominal pain. TECHNIQUE: Two Upright KUB images of the abdomen are obtained. COMPARISON: CT abdomen and pelvis October 26, 2020. FINDINGS: Scattered gas is seen in non-distended small and large bowel loops. Persistent few gas prom inent small bowel loops in the right mid abdomen. A few scattered nonspecific air-fluid levels. Ingrid cystectomy clips are redemonstrated. Lung bases remain clear. No free air. Visualized osseous structu res are intact. IMPRESSION: Overall nonspecific but favor nonobstructive bowel gas pattern .
[2021-01-28 16:34] LABS: Appearance,Urine Clear (Clear); Bilirubin,Urine Negative (Negative); Blood,Urine Negative (Negative); Color,Urine Yellow; Glucose,Urine (UA) Negative (Negative); Hyaline Casts,Urine 1 /lpf (0-2); Ketones,Urine Negative (Negative); Leukocyte Esterase,Urine Negative (Negative); Mucus,Urine Few /hpf; Nitrite,Urine Negative (Negative); Protein,Urine 2+ (Negative); RBC,Urine 1 /hpf (0-5); Specific Gravity,Urine 1.029 (1.001-1.035); Squamous Epithelial Cell,Urine <1 /hpf (0-4); Urobilinogen,Urine <2.0 mg/dL (<2.0); WBC,Urine 1 /hpf (0-5)
--- NOTE | 2021-01-28 17:37 | CT ---
EXAMINATION TYPE: CT abdomen pelvis w con DATE OF EXAM: 01/28/2021 COMPARISON: 10/26/2020 HISTORY: Epigastric and lower abdominal pain. CT DLP: 966.1 mGycm Automated exposure control for dose reduction was used. CONTRAST: Performed with IV Contrast, patient injected with 80ml mL of Isovue 300. There is mild subsegmental atelectasis at the lung bases. There is no pericardial effusion. There is no pleural effusion. Heart appears borderline enlarged. There are clips from cholecystectomy. Liver spleen stomach pancreas appear intact. The bile ducts are nondilated. There is no adrenal mass. Kidneys show satisfactory contrast opacification. There is no hydronephrosi s. There is 3 cm cortical cyst lateral left kidney. Delayed images show normal renal excretion. The u reters are not dilated. There is no retroperitoneal adenopathy. Bladder distends smoothly. There is n o inguinal hernia. There is no free fluid in the pelvis. There are numerous large bowel diverticula. These are concentrated more in the sigmoid colon. I see n o diverticulitis. There are dilated multiple loops of small bowel in the mid abdomen. There is umbilical hernia that co ntains loop of small bowel. Small bowel dilated up to 3.4 cm. Appendix not definitely seen. There is no sign of thickened appendix. The distal ileum is not dilated. There is possible transition point of the small bowel in the right anterior mid abdomen. There is luminal narrowing seen on coronal image 42 and axial image 34. The umbilical hernia that does not appear to be causing May bowel obstruction. Transition point seems to be in the same location as the previous CT scan. There is no ascites. There is no evidence of free air. Lumbar vertebra appear intact. There is no com pression fracture. The bony pelvis is intact. The hip joints are intact. There is no hip dysplasia. IMPRESSION: There is evidence for partial mechanical small bowel obstruction with possible constricting lesion in the small bowel on the right mid abdomen as above. Dilation of the bowel appears the same or slightl y worse than last exam. There is partly incarcerated umbilical hernia. Colonic diverticulosis without diverticulitis.
[2021-01-28] MEDS ORDERED: NALOXONE 0.4 MG/ML 1 ML VIAL IV PRN (18:26)
[2021-01-28] MEDS ORDERED: metroNIDAZOLE-NS PMX 500 MG in SALINE 1 100ML.BAG IVPB STA (18:29)
[2021-01-28] MEDS: SODIUM CHLORIDE 0.9% 1,000 ML IV SCH (19:08)
[2021-01-28] MEDS: MORPHINE SULFATE 4 MG/ML SYRINGE IV PRN (19:59)
[2021-01-28] MEDS: ONDANSETRON 4 MG/2 ML VIAL IVP PRN (20:04)
[2021-01-29] MEDS: MORPHINE SULFATE 4 MG/ML SYRINGE IV PRN ×2 (06:05→15:31)
[2021-01-29] MEDS: ONDANSETRON 4 MG/2 ML VIAL IVP PRN ×2 (06:06→15:31)
[2021-01-29] MEDS: SODIUM CHLORIDE 0.9% 1,000 ML IV SCH (06:17)
[2021-01-29] MEDS ORDERED: METOPROLOL TARTRATE 5 MG/5 ML VIAL IVP PRN (09:38)
[2021-01-29 11:20] VITALS: BMI 26.9
--- NOTE | 2021-01-29 14:07 | P.HPIM ---
History of Present Illness H&P Date: 01/29/21 HISTORY OF PRESENT ILLNESS: 85-year-old male one of Dr. Arce patient with recurrent history of bowel obstruction who is known to have history of asthma, CAD, hyperlipidemia, hypertension, and history of heart disease post angioplasty and stent placement in the past. Patient has had multiple missions for the same. He regularly follows with Dr. Maxwell. Patient complains of bowel obstruction. Her last bowel movement was around noon yesterday and he had 2 liquid bowel movements yesterday morning. He states he has had some nausea and one episode of vomiting. He jalyn es having any fever or chills. He states the pain was a 7 or 8 out of 10 and all over the abdomen. Abdominal pain resolved with morphine. Patient has been admitted under the care of general surgery. Patient has been afebrile, heart rate in the 70s and 80s, blood pressure 125/81, pulse ox 94% on room air. WBC 14.0, hemoglobin 16.7, platelet count 248. Electrolytes and renal function are normal. Blood sugar 126. Lactic acid 1.3. Liver function tests were normal. Albumin 4.8. Lipase 42. CAT scan of the abdomen and pelvis revealed evidence of partial mechanical small bowel obstruction with possible constriction lesion in the small bowel on the right mid abdomen. Dilatation of the bowel appears same or slightly worse than last exam. There is partly incarcerated umbilical hernia. Colonic diverticulosis without diverticulitis. KUB is overall nonspecific but favor nonobstructive bowel gas pattern. Patient admitted to the [facility] floor. REVIEW OF SYSTEMS: Constitutional: No fever, no chills, no night sweats. No weight change. No weakness, fatigue or lethargy. No daytime sleepiness. EENT: No headache. No blurred vision or double vision, no loss of vision. No loss of Hearing, no ringing in the ears, no dizziness. No nasal drainage or congestion. No epistaxis. No sore throat. Lungs: No shortness of breath, cough, no sputum production. No wheezing. Cardiovascular: No chest pain, no lower extremity edema. No palpitations. No paroxysmal nocturnal dyspnea. No orthopnea. No lightheadedness or dizziness. No syncopal episodes. Abdominal: Slight abdominal pain with distention with nausea and one episode vomiting. No diarrhea. No constipation. No bloody or tarry stools.. No loss of appetite. Genitourinary: No dysuria, increased frequency, urgency. No urinary retention. Musculoskeletal: No myalgias. No muscle weakness, no gait dysfunction, no frequent falls. No back pain. No neck pain. Integumentary: No wounds, no lesions. No rash or pruritus. No unusual bruising. No change in hair or nails. Neurologic: No aphasia. No facial droop. No change in mentation. No head injury. No headache. No paralysis. No paresthesia. Psychiatric: No depression. No anxiety. No mood swings. Endocrine: No abnormal blood sugars. No weight change. No excessive sweating or thirst. No cold intolerance. SOCIAL HISTORY: He quit smoking years ago was smoker for few years, no alcohol abuse, does not use any BiPAP or 02 at home. FAMILY HISTORY: His mother dying her 80s from possible uterine cancer pulmonary embolism, father dying in his 60s from blood clot with the management of bladder cancer. Patient had 1 brother with history of non-Hodgkin lymphoma he does not have any sister patient has 3 children with no major medical problem. PHYSICAL EXAMINATION: Gen: This is a 85-year-old gentleman does not look in any distress, resting in bed HEENT: Head is atraumatic, normocephalic. Pupils equal, round. Sclerae is anicteric. NECK: Supple. No JVD. No lymphadenopathy. No thyromegaly. LUNGS: Clear to auscultation. No wheezes or rhonchi. No intercostal retractions. HEART: Regular rate and rhythm. No murmur. ABDOMEN: Soft. Slight distention with decreased bowel sound in the mid abdominal area, upper abdominal tenderness. EXTREMITIES: No pedal edema. No calf tenderness. NEUROLOGICAL: Patient is awake, alert and oriented x3. Cranial nerves 2 through 12 are grossly intact. ASSESSMENT AND PLAN: 1. Abdominal pain secondary to partial mechanical small bowel obstruction. Continue Kefzol 2 g IV every 8 hours, nothing by mouth, morphine for pain, Zofran for nausea, continue IV fluids 0.9 normal saline at 75 mL per hour.. 2. History of CAD post angioplasty and stent placement in the past patient has been on secondary prevention with metoprolol and simvastatin. Start IV metoprolol. She follows with Dr. Benedict 3. Hypertension. Continue IV Lopressor for now. 4. Hyperlipidemia. Hold simvastatin. 5. Seasonal ALLERGIES. Patient is normally on Zyrtec. 6. Mild intermittent asthma. Hold Singulair 10 mg at bedtime 7. History of hepatitis C: Not active at this point. 8. GI prophylaxis: Patient will be on pantoprazole. 9. DVT prophylaxis: Patient will be on heparin subcu CODE STATUS: Full code. Patient will be admitted to the hospital for a minimum of 2 night stay. DISCHARGE PLAN Home Impression and plan of care have been directed as dictated by the signing physician. Susi Cardona nurse practitioner acting as scribe for signing physician. Past Medical History Past Medical History: Asthma, Coronary Artery Disease (CAD), Chest Pain / Angina, GERD/Reflux, GI Bleed, Hearing Disorder / Deafness, Hyperlipidemia, Hyp ertension, Liver Disease, Osteoarthritis (OA) Additional Past Medical History / Comment(s): Recurrent SBO d/t adhesions with conservative treatment and surgical treatment, mild leaky heart valve, bleeding ulcer/lower GI bleed many years ago with exsanguination and stayed in ICU/had transfusions then another less severe lower GI bleed a few years later, upper GI bleed, duodenal ulcer, hiatal hernia, hepatitis C d/t blood transfusion-2nd treatment successful, some recent short term memory issues/tremors in hands and balance issues past few months being worked up, constipation, diverticulitis and past pre cancerous polypectomies-last colonoscopy was normal in 2018, low back pain, L shoulder pain, 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 History of Any Multi-Drug Resistant Organisms: None Reported Past Surgical History: Bowel Resection, Cholecystectomy, Heart Catheterization With Stent, Orthopedic Surgery Additional Past Surgical History / Comment(s): 06/2018 PCI with stent, 1999 PCI with 2 stents, laparotomy with lysis of adhesions, R rotator cuff repair, R knee arthroscopy, R upper chest lipoma removed, bilateral cataract removals/lens impl ants, EGD and colonoscopies with pre cancerous polypectomies-last colonoscopy in 2018 was normal per pt. Past Anesthesia/Blood Transfusion Reactions: Blood Transfusion Reaction Additional Past Anesthesia/Blood Transfusion Reaction / Comment(s): CONTRACTED HEP C FROM A BLOOD TRANSFUSION 35-40 YEARS AGO. Date of Last Stent Placement:: JUN 2018 Past Psychological History: No Psychological Hx Reported Additional Psychological History / Comment(s): Pt resides with his spouse. He is independent. He is an [employer] . Smoking Status: Former smoker Past Alcohol Use History: None Reported Additional Past Alcohol Use History / Comment(s): Patient was a smoker from [id number]. He drinks a glass of wine on special occasions. No illicit drug use. Past Drug Use History: None Reported - Past Family History Mother Family Medical History: Cancer Additional Family Medical History / Comment(s): Other at age 82 from acute kidney injury following surgery. Patient had bladder suspension surgery and she developed to have possibly uterine cancer however she ended up with renal failure refused hemodialysis Father Family Medical History: Cancer, Deep Vein Thrombosis (DVT), Pulmonary Embolus Additional Family Medical History / Comment(s): LUNG CANCER. Father in his mid 60s due to blood clots with history of bladder cancer . The cause of pulmonary embolism. Brother(s) Family Medical History: Cancer, Coronary Artery Disease (CAD) Additional Family Medical History / Comment(s): Patient has one brother with history of non-Hodgkin's lymphoma diagnosed 15 YEARS AGO. He does not have any sisters. He has adult children with no major medical problem basically 2 sons and a daughter. Medications and Allergies Home Medications Medication Instructions Recorded Confirmed Type Simvastatin [Zocor] 20 mg PO HS 02/23/14 01/28/21 History Omeprazole 40 mg PO DAILY 02/14/19 01/28/21 History Calcium Citrate/Vitamin D3 1 tab PO DAILY 02/23/20 01/28/21 History [Citracal + D Maximum Caplet] Cyanocobalamin (Vitamin B-12) 1,000 mcg PO MOWEFR 02/23/20 01/28/21 History [Vitamin B-12] Metoprolol Tartrate [Lopressor] 12.5 mg PO BID 02/23/20 01/28/21 History Vitamin B Complex 1 cap PO CLAUDIO 02/23/20 01/28/21 History Montelukast Sodium [Singulair] 10 mg PO HS 03/15/20 01/28/21 History Aspirin EC [Ecotrin Low Dose] 81 mg PO DAILY 01/28/21 01/28/21 History Cetirizine HCl [Zyrtec] 10 mg PO DAILY 01/28/21 01/28/21 History Docusate [Colace] 100 mg PO DAILY 01/28/21 01/28/21 History Allergies Allergy/AdvReac Type Severity Reaction Status Date / Time atenolol Allergy Syncope Verified 01/28/21 18:02 Penicillins Allergy Rash/Hives Verified 01/28/21 16:17 prednisone Allergy Rash/Hives Verified 01/28/21 16:17 Physical Exam Vitals: Vital Signs Temp Pulse Pulse Resp BP BP Pulse Ox 01/29/21 04:12 98.6 F 71 18 123/69 92 L 01/28/21 21:45 98.3 F 76 18 137/77 94 L 01/28/21 19:01 79 18 136/82 95 01/28/21 16:51 98.9 F 80 18 125/81 94 L 01/28/21 15:28 98.2 F 74 18 141/85 97 Intake and Output 01/28/21 01/29/21 01/29/21 22:59 06:59 14:59 Intake Total 550 Output Total 250 Balance 550 -250 Intake: Intake, IV Titration 550 Amount Sodium Chloride 0.9% 1, 500 000 ml @ 75 mls/hr IV . [id number] Rx#:[id number] ceFAZolin 2 gm In Sodium 50 Chloride 0.9% 50 ml @ 100 mls/hr IVPB Q8HR [facility] Rx# :[id number] Output: Urine 250 Other: Weight 73.482 kg Results CBC & Chem 7: 01/28/21 15:59 01/28/21 15:59 Labs: Abnormal Lab Results - Last 24 Hours (Table) 01/28/21 01/28/21 01/28/21 Range/Units 15:59 15:59 15:59 WBC 14.0 H (3.8-10.6) k/uL Neutrophils # 10.9 H (1.3-7.7) k/uL Glucose 126 H (74-99) mg/dL Urine Protein 2+ H (Negative) Urine Mucus Few H (None) /hpf Thrombosis Risk Factor Assmnt - Choose All That Apply Each Factor Represents 1 point: Obesity (BMI >25) Other Risk Factors: No Other congenital or acquired thrombophilia - If yes, enter type in comment: No Thrombosis Risk Factor Assessment Total Risk Factor Score: 1 Thrombosis Risk Factor Assessment Level: Low Risk
--- NOTE | 2021-01-29 17:03 | P.GSCN ---
History of Present Illness Consult date: 01/29/21 Reason for Consult: Abdominal pain, bowel obstruction History of present illness: The patient's a 85-year-old man who presented to the ER yesterday with abdominal pain. He started having discomfort Wednesday night and then it got quite a bit worse Wednesday. He had nausea. He had one episode of vomiting on arrival to the ER. After vomiting and receiving some pain medication he's been feeling better. He's been ambulating today. Started to pass some flatus. Denies fevers or chills. The patient has had several admissions with similar complaints that have resolved on their own. He does have a known umbilical hernia which is not bothering him. Review of Systems All systems: negative Past Medical History Past Medical History: Asthma, Coronary Artery Disease (CAD), Chest Pain / Angina, GERD/Reflux, GI Bleed, Hearing Disorder / Deafness, Hyperlipidemia, H ypertension, Liver Disease, Osteoarthritis (OA) Additional Past Medical History / Comment(s): Recurrent SBO d/t adhesions with conservative treatment and surgical treatment, mild leaky heart valve, bleeding ulcer/lower GI bleed many years ago with exsanguination and stayed in ICU/had transfusions then another less severe lower GI bleed a few years later, upper GI bleed, duodenal ulcer, hiatal hernia, hepatitis C d/t blood transfusion-2nd treatment successful, some recent short term memory issues/tremors in hands and balance issues past few months being worked up, constipation, diverticulitis and past pre cancerous polypectomies-last colonoscopy was normal in 2018, low back pain, L shoulder pain, 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 History of Any Multi-Drug Resistant Organisms: None Reported Past Surgical History: Bowel Resection, Cholecystectomy, Heart Catheterization With Stent, Orthopedic Surgery Additional Past Surgical History / Comment(s): 06/2018 PCI with stent, 1999 PCI with 2 stents, laparotomy with lysis of adhesions, R rotator cuff repair, R knee arthroscopy, R upper chest lipoma removed, bilateral cataract removals/lens im plants, EGD and colonoscopies with pre cancerous polypectomies-last colonoscopy in 2018 was normal per pt. Past Anesthesia/Blood Transfusion Reactions: Blood Transfusion Reaction Additional Past Anesthesia/Blood Transfusion Reaction / Comm: CONTRACTED HEP C FROM A BLOOD TRANSFUSION 35-40 YEARS AGO. Date of Last Stent Placement:: JUN 2018 Past Psychological History: No Psychological Hx Reported Additional Psychological History / Comment(s): Pt resides with his spouse. He is independent. He is an [employer] . Smoking Status: Former smoker Past Alcohol Use History: None Reported Additional Past Alcohol Use History / Comment(s): Patient was a smoker from [id number]. He drinks a glass of wine on special occasions. No illicit drug use. Past Drug Use History: None Reported - Past Family History Mother Family Medical History: Cancer Additional Family Medical History / Comment(s): Other at age 80 from acute kidney injury following surgery. Patient had bladder suspension surgery and she developed to have possibly uterine cancer however she ended up with renal failure refused hemodialysis Father Family Medical History: Cancer, Deep Vein Thrombosis (DVT), Pulmonary Embolus Additional Family Medical History / Comment(s): LUNG CANCER. Father in his mid 60s due to blood clots with history of bladder cancer . The cause of pulmonary embolism. Brother(s) Family Medical History: Cancer, Coronary Artery Disease (CAD) Additional Family Medical History / Comment(s): Patient has one brother with history of non-Hodgkin's lymphoma diagnosed 15 YEARS AGO. He does not have any sisters. He has adult children with no major medical problem basically 2 sons a nd a daughter. Medications and Allergies Home Medications Medication Instructions Recorded Confirmed Type Simvastatin [Zocor] 20 mg PO HS 02/23/14 01/28/21 History Omeprazole 40 mg PO DAILY 02/14/19 01/28/21 History Calcium Citrate/Vitamin D3 1 tab PO DAILY 02/23/20 01/28/21 History [Citracal + D Maximum Caplet] Cyanocobalamin (Vitamin B-12) 1,000 mcg PO MOWEFR 02/23/20 01/28/21 History [Vitamin B-12] Metoprolol Tartrate [Lopressor] 12.5 mg PO BID 02/23/20 01/28/21 History Vitamin B Complex 1 cap PO CLAUDIO 02/23/20 01/28/21 History Montelukast Sodium [Singulair] 10 mg PO HS 03/15/20 01/28/21 History Aspirin EC [Ecotrin Low Dose] 81 mg PO DAILY 01/28/21 01/28/21 History Cetirizine HCl [Zyrtec] 10 mg PO DAILY 01/28/21 01/28/21 History Docusate [Colace] 100 mg PO DAILY 01/28/21 01/28/21 History Allergies Allergy/AdvReac Type Severity Reaction Status Date / Time atenolol Allergy Syncope Verified 01/28/21 18:02 Penicillins Allergy Rash/Hives Verified 01/28/21 16:17 prednisone Allergy Rash/Hives Verified 01/28/21 16:17 Surgical - Exam Osteopathic Statement: *. No significant issues noted on an osteopathic structural exam other than those noted in the History and Physical/Consult. Vital Signs Temp Pulse Resp BP Pulse Ox 98.2 F 74 18 141/85 97 01/28/21 15:28 01/28/21 15:28 01/28/21 15:28 01/28/21 15:28 01/28/21 15:28 - General well developed, well nourished, no distress - Eyes normal ocular movement - Neck trachea midline - Respiratory normal respiratory effort, clear to auscultation - Cardiovascular Rhythm: regular - Abdomen Abdomen: tender (Mild nonspecific tenderness without guarding or rebound), distended (very softly distended, tympanitic) Hernia: umbilical (Soft reducible umbilical hernia) Results - Labs 01/28/21 15:59 01/28/21 15:59 - Imaging Abdominal x-ray: report reviewed, image reviewed Assessment and Plan (1) Small bowel obstruction Current Visit: Yes Status: Acute Code(s): K56.609 - UNSP INTESTNL OBST, UNSP TO PARTIAL VERSUS COMPLETE OBST SNOMED Code(s): 390604380 (2) Abdominal pain Current Visit: No Status: Acute Code(s): R10.9 - UNSPECIFIED ABDOMINAL PAIN SNOMED Code(s): 96494293 Plan: Clinically the patient's doing well. He is having no nausea or vomiting and is started to pass flatus. I do recommend that we keep him nothing by mouth, hydrate, serial exams. I'll follow with you.
[2021-01-30] MEDS: SODIUM CHLORIDE 0.9% 1,000 ML IV SCH ×3 (03:31→22:59)
[2021-01-30] MEDS: PANTOPRAZOLE 40 MG/10 ML VIAL IVP SCH (09:19)
--- NOTE | 2021-01-30 09:24 | P.PN ---
Subjective Progress Note Date: 01/30/21 The patient is seen on rounds. He is feeling better this morning. He has some tenderness if he pushes on his abdomen otherwise its not bothering him. No nausea or vomiting. He is passing some flatus. Overall feels better than admission Objective - Vital Signs Vital signs: Vital Signs Temp 98.3 F 01/30/21 04:29 Pulse 74 01/30/21 04:29 Resp 16 01/30/21 04:29 BP 130/72 01/30/21 04:29 Pulse Ox 92 L 01/30/21 04:29 Intake & Output 01/29/21 01/30/21 01/30/21 18:59 06:59 18:59 Intake Total 1000 Output Total 600 Balance 1000 -600 Weight 73.482 kg Intake: Intake, IV Titration 1000 Amount Sodium Chloride 0.9% 1, 900 000 ml @ 75 mls/hr IV . [id number] [facility] Rx#:[id number] ceFAZolin 2 gm In Sodium 100 Chloride 0.9% 50 ml @ 100 mls/hr IVPB Q8HR [facility] Rx# :[id number] Output: Urine 600 Other: Voiding Method Toilet # Voids 2 - Constitutional General appearance: Present: cooperative, no acute distress - Gastrointestinal General gastrointestinal: Present: decreased bowel sounds, soft (no significant tympany to percussion), tenderness (Minimal tenderness in the epigastric region) - Labs CBC & Chem 7: 01/28/21 15:59 01/28/21 15:59 Labs: Microbiology - Last 24 Hours (Table) 01/28/21 19:02 Blood Culture - Preliminary Blood No Growth after 24 hours 01/28/21 19:02 Blood Culture - Preliminary Blood No Growth after 24 hours Assessment and Plan (1) Small bowel obstruction Current Visit: Yes Status: Acute Code(s): K56.609 - UNSP INTESTNL OBST, UNSP TO PARTIAL VERSUS COMPLETE OBST SNOMED Code(s): 517901041 (2) Abdominal pain Current Visit: No Status: Acute Code(s): R10.9 - UNSPECIFIED ABDOMINAL PAIN SNOMED Code(s): 96856105 Plan: The patient is clinically improved. I will repeat an abdominal series on him. If it looks improved, he will start on clear liquid diet. Further recommendations to follow
[2021-01-30] MEDS: ONDANSETRON 4 MG/2 ML VIAL IVP PRN (12:16)
[2021-01-30] MEDS: MORPHINE SULFATE 4 MG/ML SYRINGE IV PRN (12:16)
--- NOTE | 2021-01-30 12:53 | P.PN ---
Subjective Progress Note Date: 01/30/21 HISTORY OF PRESENT ILLNESS: 85-year-old male one of Dr. Arce patient with recurrent history of bowel obstruction who is known to have history of asthma, CAD, hyperlipidemia, hype rtension, and history of heart disease post angioplasty and stent placement in the past. Patient has had multiple missions for the same. He regularly follows with Dr. Maxwell. Patient complains of bowel obstruction. Her last bowel movement was around noon yesterday and he had 2 liquid bowel movements yesterday morning. He states he has had some nausea and one episode of vomiting. He denies having any fever or chills. He states the pain was a 7 or 8 out of 10 and all over the abdomen. Abdominal pain resolved with morphine. Patient has been admitted under the care of general surgery. Patient has been afebrile, heart rate in the 70s and 80s, blood pressure 125/81, pulse ox 94% on room air. WBC 14.0, hemoglobin 16.7, platelet count 248. Electrolytes and renal function are normal. Blood sugar 126. Lactic acid 1.3. Liver function tests were normal. Albumin 4.8. Lipase 42. CAT scan of the abdomen and pelvis revealed evidence of partial mechanical small bowel obstruction with possible constriction lesion in the small bowel on the right mid abdomen. Dilatation of the bowel appears same or slightly worse than last exam. There is partly incarcerated umbilical hernia. Colonic diverticulosis without diverticulitis. KUB is overall nonspecific but favor nonobstructive bowel gas pattern. Patient admitted to the [facility] floor. 01/30: Patient states that he has less bloating today and is passing gas but no bowel movement. He denies having any nausea. Incentive spirometry will be added. Patient states that Dr. Maxwell was in this morning and ordered a repeat x-ray of his abdomen. He has been afebrile, heart rate 74, blood pressure 130/72, pulse ox 92% on room air. Repeat blood work ordered for tomorrow. REVIEW OF SYSTEMS: Constitutional: No fever, no chills, no night sweats. No weight change. No weakness, fatigue or lethargy. No daytime sleepiness. EENT: No headache. No blurred vision or double vision, no loss of vision. No loss of Hearing, no ringing in the ears, no dizziness. No nasal drainage or congestion. No epistaxis. No sore throat. Lungs: No shortness of breath, cough, no sputum production. No wheezing. Cardiovascular: No chest pain, no lower extremity edema. No palpitations. No paroxysmal nocturnal dyspnea. No orthopnea. No lightheadedness or dizziness. No syncopal episodes. Abdominal: Slight abdominal pain with distention with nausea and one episode vomiting. No diarrhea. No constipation. No bloody or tarry stools.. No loss of appetite. Genitourinary: No dysuria, increased frequency, urgency. No urinary retention. Musculoskeletal: No myalgias. No muscle weakness, no gait dysfunction, no fr equent falls. No back pain. No neck pain. Integumentary: No wounds, no lesions. No rash or pruritus. No unusual bruising. No change in hair or nails. Neurologic: No aphasia. No facial droop. No change in mentation. No head injury. No headache. No paralysis. No paresthesia. Psychiatric: No depression. No anxiety. No mood swings. Endocrine: No abnormal blood sugars. No weight change. No excessive sweating or thirst. No cold intolerance. PHYSICAL EXAMINATION: Gen: This is a 85-year-old gentleman does not look in any distress, resting in bed HEENT: Head is atraumatic, normocephalic. Pupils equal, round. Sclerae is anicteric. NECK: Supple. No JVD. No lymphadenopathy. No thyromegaly. LUNGS: Clear to auscultation. No wheezes or rhonchi. No intercostal ret ractions. HEART: Regular rate and rhythm. No murmur. ABDOMEN: Soft. Slight distention with decreased bowel sound in the mid abdominal area, upper abdominal tenderness. EXTREMITIES: No pedal edema. No calf tenderness. NEUROLOGICAL: Patient is awake, alert and oriented x3. Cranial nerves 2 through 12 are grossly intact. ASSESSMENT AND PLAN: 1. Abdominal pain secondary to partial mechanical small bowel obstruction. Continue Kefzol 2 g IV every 8 hours, nothing by mouth, morphine for pain, Zofran for nausea, continue IV fluids 0.9 normal saline at 75 mL per hour. Abdominal x-ray today. Consult with Dr. Hans contreras. 2. History of CAD post angioplasty and stent placement in the past patient has been on secondary prevention with metoprolol and simvastatin. Start IV metoprolol. He follows with Dr. Benedict 3. Hypertension. Continue IV Lopressor for now. 4. Hyperlipidemia. Hold simvastatin. 5. Seasonal ALLERGIES. Patient is normally on Zyrtec. 6. Mild intermittent asthma. Hold Singulair 10 mg at bedtime 7. History of hepatitis C: Not active at this point. 8. GI prophylaxis: Patient will be on pantoprazole. 9. DVT prophylaxis: Patient will be on heparin subcu CODE STATUS: Full code. DISCHARGE PLAN Home most likely on Wednesday Impression and plan of care have been directed as dictated by the signing physician. Susi Cardona nurse practitioner acting as scribe for signing physician. Objective - Vital Signs Vital signs: Vital Signs Temp 98.3 F 01/30/21 04:29 Pulse 74 01/30/21 04:29 Resp 16 01/30/21 04:29 BP 130/72 01/30/21 04:29 Pulse Ox 92 L 01/30/21 04:29 Intake & Output 01/29/21 01/30/21 01/30/21 18:59 06:59 18:59 Intake Total 1000 Output Total 600 Balance 1000 -600 Weight 73.482 kg Intake: Intake, IV Titration 1000 Amount Sodium Chloride 0.9% 1, 900 000 ml @ 75 mls/hr IV . [id number] [facility] Rx#:[id number] ceFAZolin 2 gm In Sodium 100 Chloride 0.9% 50 ml @ 100 mls/hr IVPB Q8HR [facility] Rx# :[id number] Output: Urine 600 Other: Voiding Method Toilet # Voids 2 - Labs CBC & Chem 7: 01/28/21 15:59 01/28/21 15:59 Labs: Microbiology - Last 24 Hours (Table) 01/28/21 19:02 Blood Culture - Preliminary Blood No Growth after 24 hours 01/28/21 19:02 Blood Culture - Preliminary Blood No Growth after 24 hours
--- NOTE | 2021-01-30 17:15 | XR ---
2 view abdomen HISTORY: Follow-up small bowel obstruction 2 views the abdomen on 3 images correlated to prior exam 01/28/2021 There are some gas distended loops of small bowel within the abdomen. Retained fecal debris is presen t within the descending colon. No evident pneumoperitoneum. Surgical clips are present right upper qu adrant. Multiple phleboliths are present within the pelvis. Lung bases are clear. There are air-fluid levels present. IMPRESSION: Findings may be indicative of small bowel obstruction, ileus, correlate.
[2021-01-31 05:03] LABS: HCT 40.2 % (39.0-53.0); HGB 13.9 gm/dL (13.0-17.5); MCH 31.6 pg (25.0-35.0); MCHC 34.5 g/dL (31.0-37.0); MCV 91.7 fL (80.0-100.0); Mean Platelet Volume 6.9; Platelet Count 196 k/uL (150-450); RBC 4.39 m/uL (4.30-5.90); RDW 12.8 % (11.5-15.5); WBC 8.9 k/uL (3.8-10.6)
[2021-01-31] MEDS: PANTOPRAZOLE 40 MG/10 ML VIAL IVP SCH (08:36)
[2021-01-31 10:00] LABS: African American GFR (CKD) 80.3 (60.0-200.0); Anion Gap 11.4 mmol/L (4.00-12.00); Calcium 8.1 mg/dL (8.7-10.3); Carbon Dioxide 20.6 mmol/L (21.6-31.8); Non-African American GFR(CKD) 69.3 (60.0-200.0); Potassium 4.1 mmol/L (3.5-5.5)
--- NOTE | 2021-01-31 12:01 | P.PN ---
Subjective Progress Note Date: 01/31/21 HISTORY OF PRESENT ILLNESS: 85-year-old male one of Dr. Arce patient with recurrent history of bowel obstruction who is known to have history of asthma, CAD, hyperlipidemia, hype rtension, and history of heart disease post angioplasty and stent placement in the past. Patient has had multiple missions for the same. He regularly follows with Dr. Maxwell. Patient complains of bowel obstruction. Her last bowel movement was around noon yesterday and he had 2 liquid bowel movements yesterday morning. He states he has had some nausea and one episode of vomiting. He denies having any fever or chills. He states the pain was a 7 or 8 out of 10 and all over the abdomen. Abdominal pain resolved with morphine. Patient has been admitted under the care of general surgery. Patient has been afebrile, heart rate in the 70s and 80s, blood pressure 125/81, pulse ox 94% on room air. WBC 14.0, hemoglobin 16.7, platelet count 248. Electrolytes and renal function are normal. Blood sugar 126. Lactic acid 1.3. Liver function tests were normal. Albumin 4.8. Lipase 42. CAT scan of the abdomen and pelvis revealed evidence of partial mechanical small bowel obstruction with possible constriction lesion in the small bowel on the right mid abdomen. Dilatation of the bowel appears same or slightly worse than last exam. There is partly incarcerated umbilical hernia. Colonic diverticulosis without diverticulitis. KUB is overall nonspecific but favor nonobstructive bowel gas pattern. Patient admitted to the [facility] floor. 01/30: Patient states that he has less bloating today and is passing gas but no bowel movement. He denies having any nausea. Incentive spirometry will be added. Patient states that Dr. Maxwell was in this morning and ordered a repeat x-ray of his abdomen. He has been afebrile, heart rate 74, blood pressure 130/72, pulse ox 92% on room air. Repeat blood work ordered for tomorrow. 01/31: Patient states that his abdomen is still sore. He is not passing gas today but he did yesterday. Repeat blood work reveals a normal CBC. Electrolytes within normal limits except for CO2 was 20. BUN 15 and creatinine 1.0. Calcium 8.1. Blood sugar 58. Repeat abdominal x-rays reveal small bowel obstruction, ileus, correlate. Patient is currently on a low fiber, low residue diet. Blood cultures no growth after 48 hours. REVIEW OF SYSTEMS: Constitutional: No fever, no chills, no night sweats. No weight change. No weakness, fatigue or lethargy. No daytime sleepiness. EENT: No headache. No blurred vision or double vision, no loss of vision. No loss of Hearing, no ringing in the ears, no dizziness. No nasal drainage or congestion. No epistaxis. No sore throat. Lungs: No shortness of breath, cough, no sputum production. No wheezing. Cardiovascular: No chest pain, no lower extremity edema. No palpitations. No paroxysmal nocturnal dyspnea. No orthopnea. No lightheadedness or dizziness. No syncopal episodes. Abdominal: Reports abdominal pain with distention denies nausea denies vomiting. No diarrhea. Reports constipation. No bloody or tarry stools reports loss of appetite. Genitourinary: No dysuria, increased frequency, urgency. No urinary retention. Musculoskeletal: No myalgias. No muscle weakness, no gait dysfunction, no frequent falls. No back pain. No neck pain. Integumentary: No wounds, no lesions. No rash or pruritus. No unusual bruising. No change in hair or nails. Neurologic: No aphasia. No facial droop. No change in mentation. No head injury. No headache. No paralysis. No paresthesia. Psychiatric: No depression. No anxiety. No mood swings. Endocrine: No abnormal blood sugars. No weight change. No excessive sweating or thirst. No cold intolerance. PHYSICAL EXAMINATION: Gen: This is a 85-year-old gentleman does not look in any distress, resting in bed HEENT: Head is atraumatic, normocephalic. Pupils equal, round. Sclerae is anicteric. NECK: Supple. No JVD. No lymphadenopathy. No thyromegaly. LUNGS: Clear to auscultation. No wheezes or rhonchi. No intercostal retractions. HEART: Regular rate and rhythm. No murmur. ABDOMEN: Soft. Slight distention with decreased bowel sound in the mid abdominal area, upper abdominal tenderness. EXTREMITIES: No pedal edema. No calf tenderness. NEUROLOGICAL: Patient is awake, alert and oriented x3. Cranial nerves 2 through 12 are grossly intact. ASSESSMENT AND PLAN: 1. Abdominal pain secondary to partial mechanical small bowel obstruction. Continue Kefzol 2 g IV every 8 hours, nothing by mouth, morphine for pain, Zofran for nausea, continue IV fluids 0.9 normal saline at 75 mL per hour. Abdominal x-ray as above confirming small bowel obstruction unresolved. Consult with Dr. Hans contreras. 2. History of CAD post angioplasty and stent placement in the past patient has been on secondary prevention with metoprolol and simvastatin. Start IV met oprolol. He follows with Dr. Benedict 3. Hypertension. Continue IV Lopressor for now. 4. Hyperlipidemia. Hold simvastatin. 5. Seasonal ALLERGIES. Patient is normally on Zyrtec. 6. Mild intermittent asthma. Hold Singulair 10 mg at bedtime 7. History of hepatitis C: Not active at this point. 8. GI prophylaxis: Patient will be on pantoprazole. 9. DVT prophylaxis: Patient will be on heparin subcu CODE STATUS: Full code. DISCHARGE PLAN Home Impression and plan of care have been directed as dictated by the signing physician. Susi Cardona nurse practitioner acting as scribe for signing physician. Objective - Vital Signs Vital signs: Vital Signs Temp 98.1 F 01/31/21 04:41 Pulse 56 L 01/31/21 04:41 Resp 16 01/31/21 04:41 BP 114/55 01/31/21 04:41 Pulse Ox 93 L 01/31/21 04:41 Intake & Output 01/30/21 01/31/21 01/31/21 18:59 06:59 18:59 Intake Total 1000 Output Total 400 Balance 1000 -400 Intake: Intake, IV Titration 1000 Amount Sodium Chloride 0.9% 1, 900 000 ml @ 75 mls/hr IV . [id number] [facility] Rx#:[id number] ceFAZolin 2 gm In Sodium 100 Chloride 0.9% 50 ml @ 100 mls/hr IVPB Q8HR [facility] Rx# :[id number] Output: Urine 400 Other: Voiding Method Toilet Toilet # Voids 2 - Labs CBC & Chem 7: 01/31/21 04:24 01/31/21 04:24 Labs: Abnormal Lab Results - Last 24 Hours (Table) 01/31/21 Range/Units 04:24 Carbon Dioxide 20.6 L (21.6-31.8) mmol/L Glucose 58 L (70-110) mg/dL Calcium 8.1 L (8.7-10.3) mg/dL Microbiology - Last 24 Hours (Table) 01/28/21 19:02 Blood Culture - Preliminary Blood No Growth after 48 hours 01/28/21 19:02 Blood Culture - Preliminary Blood No Growth after 48 hours
[2021-01-31] MEDS: ONDANSETRON 4 MG/2 ML VIAL IVP PRN (12:38)
[2021-01-31] MEDS: MORPHINE SULFATE 4 MG/ML SYRINGE IV PRN (12:48)
[2021-01-31] MEDS: SODIUM CHLORIDE 0.9% 1,000 ML IV SCH (17:05)
[2021-01-31 19:32] VITALS: RESP 16
[2021-02-01] MEDS: SODIUM CHLORIDE 0.9% 1,000 ML IV SCH ×2 (00:39→17:38)
--- NOTE | 2021-02-01 07:12 | PN ---
PROGRESS NOTE DATE OF SERVICE: 01/31/2021 Patient was seen on rounds. He is feeling well. Not having any pain. Tolerating small amounts of clear liquids. He passed quite a bit of flatus yesterday. Vital signs are stable. He is afebrile. PHYSICAL EXAM: Alert and oriented x3, in no acute distress. HEART: Regular rate and rhythm. LUNGS: Clear to auscultation. ABDOMEN: Softly distended. Positive bowel sounds. Minimal tenderness in the epigastrium without guarding or rebound. ASSESSMENT: Incomplete small-bowel obstruction. PLAN: The patient will be started on clear liquids. If he is able to tolerate that he will be advanced to a low fiber diet for dinner. If he is tolerating this, from a surgical standpoint he could be discharged home on Wednesday. Nursing is to notify us if he has any worsening of his abdominal pain, develops nausea or vomiting. MMBERNARDAL / NIKN: [id number] /
[2021-02-01] MEDS: PANTOPRAZOLE 40 MG/10 ML VIAL IVP SCH (08:21)
--- NOTE | 2021-02-01 10:48 | P.PN ---
Subjective Progress Note Date: 02/01/21 Patient seen and examined at bedside. Over the past 24 hours, his diet has been advanced from clear liquid to a low fiber diet. He states that he has been tolerating this without any nausea and no further distention. He has also began to have more flatus yesterday evening and this morning. He denies having a bowel movement as of yet. Objective - Vital Signs Vital signs: Vital Signs Temp 97.9 F 02/01/21 04:25 Pulse 57 L 02/01/21 08:20 Resp 16 02/01/21 08:20 BP 127/63 02/01/21 04:25 Pulse Ox 93 L 02/01/21 04:25 Intake & Output 01/31/21 02/01/21 02/01/21 18:59 06:59 18:59 Intake Total 302674 Output Total 500 Balance 952659 -500 Weight 73.482 kg Intake: Intake, IV Titration 150170 Amount Sodium Chloride 0.9% 1, 973873 000 ml @ 75 mls/hr IV . [id number] [facility] Rx#:[id number] ceFAZolin 2 gm In Sodium 100 Chloride 0.9% 50 ml @ 100 mls/hr IVPB Q8HR [facility] Rx# :[id number] Output: Urine 500 Other: Voiding Method Toilet Toilet Toilet # Voids 2 2 - Constitutional General appearance: Present: cooperative - Gastrointestinal Gastrointestinal Comment(s): Soft, nontender, mild distention, no rebound, no guarding - Psychiatric Psychiatric: Present: A&O x's 3 - Labs CBC & Chem 7: 01/31/21 04:24 01/31/21 04:24 Labs: Microbiology - Last 24 Hours (Table) 01/28/21 19:02 Blood Culture - Preliminary Blood No Growth after 72 hours 01/28/21 19:02 Blood Culture - Preliminary Blood No Growth after 72 hours Assessment and Plan Plan: 85-year-old male with partial small bowel obstruction that appears to be resolving. He is tolerating a low fiber diet and having more flatus. He states that his abdominal distention is decreased from his admission. He states that he is not having any abdominal tenderness. Continue with diet and await further bowel function.
--- NOTE | 2021-02-01 13:00 | P.PN ---
Subjective Progress Note Date: 02/01/21 HISTORY OF PRESENT ILLNESS: 85-year-old male one of Dr. Arce patient with recurrent history of bowel obstruction who is known to have history of asthma, CAD, hyperlipidemia, hyper tension, and history of heart disease post angioplasty and stent placement in the past. Patient has had multiple missions for the same. He regularly follows with Dr. Maxwell. Patient complains of bowel obstruction. Her last bowel movement was around noon yesterday and he had 2 liquid bowel movements yesterday morning. He states he has had some nausea and one episode of vomiting. He denies having any fever or chills. He states the pain was a 7 or 8 out of 10 and all over the abdomen. Abdominal pain resolved with morphine. Patient has been admitted under the care of general surgery. Patient has been afebrile, heart rate in the 70s and 80s, blood pressure 125/81, pulse ox 94% on room air. WBC 14.0, hemoglobin 16.7, platelet count 248. Electrolytes and renal function are normal. Blood sugar 126. Lactic acid 1.3. Liver function tests were normal. Albumin 4.8. Lipase 42. CAT scan of the abdomen and pelvis revealed evidence of partial mechanical small bowel obstruction with possible constriction lesion in the small bowel on the right mid abdomen. Dilatation of the bowel appears same or slightly worse than last exam. There is partly incarcerated umbilical hernia. Colonic diverticulosis without diverticulitis. KUB is overall nonspecific but favor nonobstructive bowel gas pattern. Patient admitted to the [facility] floor. 01/30: Patient states that he has less bloating today and is passing gas but no bowel movement. He denies having any nausea. Incentive spirometry will be added. Patient states that Dr. Maxwell was in this morning and ordered a repeat x-ray of his abdomen. He has been afebrile, heart rate 74, blood pressure 130/72, pulse ox 92% on room air. Repeat blood work ordered for tomorrow. 01/31: Patient states that his abdomen is still sore. He is not passing gas today but he did yesterday. Repeat blood work reveals a normal CBC. Electrolytes within normal limits except for CO2 was 20. BUN 15 and creatinine 1.0. Calcium 8.1. Blood sugar 58. Repeat abdominal x-rays reveal small bowel obstruction, ileus, correlate. Patient is currently on a low fiber, low residue diet. Blood cultures no growth after 48 hours. 02/01: She is found sitting up in bed resting comfortably with no acute distress. He is able to tolerate a low fiber diet. We'll continue to progress his diet to regular diet. Patient has been ambulatory in bed passing gas however he has not had any bowel movements. Patient states that he is feeling much better is not having any nausea or vomiting. REVIEW OF SYSTEMS: Constitutional: No fever, no chills, no night sweats. No weight change. No weakness, fatigue or lethargy. No daytime sleepiness. EENT: No headache. No blurred vision or double vision, no loss of vision. No loss of Hearing, no ringing in the ears, no dizziness. No nasal drainage or congestion. No epistaxis. No sore throat. Lungs: No shortness of breath, cough, no sputum production. No wheezing. Cardiovascular: No chest pain, no lower extremity edema. No palpitations. No paroxysmal nocturnal dyspnea. No orthopnea. No lightheadedness or dizziness. No syncopal episodes. Abdominal: Reports abdominal pain with distention - improved denies nausea denies vomiting. No diarrhea. Reports constipation. No bloody or tarry stools reports loss of appetite. Genitourinary: No dysuria, increased frequency, urgency. No urinary retention. Musculoskeletal: No myalgias. No muscle weakness, no gait dysfunction, no fr equent falls. No back pain. No neck pain. Integumentary: No wounds, no lesions. No rash or pruritus. No unusual bruising. No change in hair or nails. Neurologic: No aphasia. No facial droop. No change in mentation. No head injury. No headache. No paralysis. No paresthesia. Psychiatric: No depression. No anxiety. No mood swings. Endocrine: No abnormal blood sugars. No weight change. No excessive sweating or thirst. No cold intolerance. PHYSICAL EXAMINATION: Gen: This is a 85-year-old gentleman does not look in any distress, resting in bed HEENT: Head is atraumatic, normocephalic. Pupils equal, round. Sclerae is anicteric. NECK: Supple. No JVD. No lymphadenopathy. No thyromegaly. LUNGS: Clear to auscultation. No wheezes or rhonchi. No intercostal ret ractions. HEART: Regular rate and rhythm. No murmur. ABDOMEN: Soft. Slight distention with decreased bowel sound in the mid abdominal area, upper abdominal tenderness. EXTREMITIES: No pedal edema. No calf tenderness. NEUROLOGICAL: Patient is awake, alert and oriented x3. Cranial nerves 2 through 12 are grossly intact. ASSESSMENT AND PLAN: 1. Abdominal pain secondary to partial mechanical small bowel obstruction. Continue Kefzol 2 g IV every 8 hours, nothing by mouth, morphine for pain, Zofran for nausea, continue IV fluids 0.9 normal saline at 75 mL per hour. Abdominal x-ray as above confirming small bowel obstruction unresolved. Consult with Dr. Hans contreras. 2. History of CAD post angioplasty and stent placement in the past patient has been on secondary prevention with metoprolol and simvastatin. Start IV metoprolol. He follows with Dr. Benedict 3. Hypertension. Continue IV Lopressor for now. 4. Hyperlipidemia. Hold simvastatin. 5. Seasonal ALLERGIES. Patient is normally on Zyrtec. 6. Mild intermittent asthma. Hold Singulair 10 mg at bedtime 7. History of hepatitis C: Not active at this point. 8. GI prophylaxis: Patient will be on pantoprazole. 9. DVT prophylaxis: Patient will be on heparin subcu CODE STATUS: Full code. DISCHARGE PLAN Home, possibly tomorrow Impression and plan of care have been directed as dictated by the signing physician. Tamie Hart nurse practitioner acting as scribe for signing physician. Objective - Vital Signs Vital signs: Vital Signs Temp 97.8 F 02/01/21 11:10 Pulse 64 02/01/21 11:10 Resp 16 02/01/21 11:10 BP 138/72 02/01/21 11:10 Pulse Ox 95 02/01/21 11:10 Intake & Output 01/31/21 02/01/21 02/01/21 18:59 06:59 18:59 Intake Total [id number] Output Total 500 Balance 495875 -500 Weight 73.482 kg Intake: Intake, IV Titration [id number] Amount Sodium Chloride 0.9% 1, 966050 000 ml @ 75 mls/hr IV . [id number] [facility] Rx#:[id number] ceFAZolin 2 gm In Sodium 100 Chloride 0.9% 50 ml @ 100 mls/hr IVPB Q8HR [facility] Rx# :[id number] Output: Urine 500 Other: Voiding Method Toilet Toilet Toilet # Voids 2 2 - Labs CBC & Chem 7: 01/31/21 04:24 01/31/21 04:24 Labs: Microbiology - Last 24 Hours (Table) 01/28/21 19:02 Blood Culture - Preliminary Blood No Growth after 72 hours 01/28/21 19:02 Blood Culture - Preliminary Blood No Growth after 72 hours
[2021-02-02 04:47] VITALS: BP 122/72; PULSE 70; TEMP 97.9
[2021-02-02] MEDS: SODIUM CHLORIDE 0.9% 1,000 ML IV SCH (08:04)
[2021-02-02] MEDS ORDERED: PANTOPRAZOLE 40 MG TABLET PO SCH (09:00)
[2021-02-02] MEDS ORDERED: BACITRACIN OINT 1 EACH PACKET TOPICAL SCH (09:00)
--- NOTE | 2021-02-02 10:33 | P.PN ---
Subjective Progress Note Date: 02/02/21 Patient was seen and examined at bedside. Tolerating soft diet. Had multiple bowel movements. Denies abdominal pain, nausea or vomiting. Objective - Vital Signs Vital signs: Vital Signs Temp 97.9 F 02/02/21 04:45 Pulse 70 02/02/21 08:20 Resp 16 02/02/21 08:20 BP 122/72 02/02/21 04:45 Pulse Ox 96 02/02/21 04:45 Intake & Output 02/01/21 02/02/21 02/02/21 18:59 06:59 18:59 Intake Total 240 Output Total 500 400 Balance -260 -400 Intake: Oral 240 Output: Urine 500 400 Other: Voiding Method Toilet Toilet Toilet # Voids 4 2 - Constitutional General appearance: Present: cooperative - Gastrointestinal Gastrointestinal Comment(s): Soft, nontender, improved distention, no rebound, no guarding - Labs CBC & Chem 7: 01/31/21 04:24 01/31/21 04:24 Labs: Microbiology - Last 24 Hours (Table) 01/28/21 19:02 Blood Culture - Preliminary Blood No Growth after 96 hours 01/28/21 19:02 Blood Culture - Preliminary Blood No Growth after 96 hours Assessment and Plan Plan: 85-year-old male with resolving partial small bowel obstruction. Having bowel function. Tolerating diet. He is surgically stable for discharge. Post discharge diet was discussed with the patient. Follow-up as necessary.
--- NOTE | 2021-02-02 12:24 | P.DS ---
Providers Date of admission: 01/28/21 18:34 Attending physician: Destiny Orlando Consults: 01/28/21 18:26 Consult Physician Routine Consulting Provider: Alysia Maxwell Consult Reason/Comments: Small bowel obstruction Do you want consulting provider notified?: Yes Primary care physician: Destiny Orlando [facility] Course: 85-year-old male one of Dr. Arce patient with recurrent history of bowel obstruction who is known to have history of asthma, CAD, hyperlipidemia, hypertension, and history of heart disease post angioplasty and stent placement in the past. Patient has had multiple missions for the same. He regularly follows with Dr. Maxwell. Patient complains of bowel obstruction. Her last bowel movement was around noon yesterday and he had 2 liquid bowel movements yesterday morning. He states he has had some nausea and one episode of vomiting. He denies having any fever or chills. He states the pain was a 7 or 8 out of 10 and all over the abdomen. Abdominal pain resolved with morphine. Patient has been admitted under the care of general surgery. Patient has been afebrile, heart rate in the 70s and 80s, blood pressure 125/81, pulse ox 94% on room air. WBC 14.0, hemoglobin 16.7, platelet count 248. Electrolytes and renal function are normal. Blood sugar 126. Lactic acid 1.3. Liver function tests were normal. Albumin 4.8. Lipase 42. CAT scan of the abdomen and pelvis revealed e vidence of partial mechanical small bowel obstruction with possible constriction lesion in the small bowel on the right mid abdomen. Dilatation of the bowel appears same or slightly worse than last exam. There is partly incarcerated umbilical hernia. Colonic diverticulosis without diverticulitis. KUB is overall nonspecific but favor nonobstructive bowel gas pattern. [facility]. 01/30: Patient states that he has less bloating today and is passing gas but no bowel movement. He denies having any nausea. Incentive spirometry will be added. Patient states that Dr. Maxwell was in this morning and ordered a repeat x-ray of his abdomen. He has been afebrile, heart rate 74, blood pressure 130/72, pulse ox 92% on room air. Repeat blood work ordered for tomorrow. 01/31: Patient states that his abdomen is still sore. He is not passing gas today but he did yesterday. Repeat blood work reveals a normal CBC. Electrolytes within normal limits except for CO2 was 20. BUN 15 and creatinine 1.0. Calcium 8.1. Blood sugar 58. Repeat abdominal x-rays reveal small bowel obstruction, ileus, correlate. Patient is currently on a low fiber, low residue diet. Blood cultures no growth after 48 hours. 02/01: he is found sitting up in bed resting comfortably with no acute distress. He is able to tolerate a low fiber diet. We'll continue to progress his diet to regular diet. Patient has been ambulatory in bed passing gas however he has not had any bowel movements. Patient states that he is feeling much better is not having any nausea or vomiting. 02/02: he is found resting comfortably in bed with no acute distress. He is tolerating a regular diet. He did have one soft loose bowel movement yesterday. He is encouraged to continue with a stool softener and MiraLAX daily. Patient denies any nausea or vomiting at this time. Discharge diagnosis 1. Abdominal pain secondary to partial mechanical small bowel obstruction. 2. History of CAD post angioplasty and stent placement 3. Hypertension. 4. Hyperlipidemia. 5. Seasonal ALLERGIES. 6. Mild intermittent asthma. 7. History of hepatitis C: DISCHARGE DISPOSITION Home with self-care Impression and plan of care have been directed as dictated by the signing physician. Tamie Hart nurse practitioner acting as scribe for signing physician. Patient Condition at Discharge: Fair Plan - Discharge Summary Discharge Rx Participant: Yes New Discharge Prescriptions: New polyethylene glycoL 3350 [Miralax] 17 gm PO DAILY #30 packet Continue Simvastatin [Zocor] 20 mg PO HS Omeprazole 40 mg PO DAILY Metoprolol Tartrate [Lopressor] 12.5 mg PO BID Cyanocobalamin (Vitamin B-12) [Vitamin B-12] 1,000 mcg PO MOWEFR Vitamin B Complex 1 cap PO CLAUDIO Calcium Citrate/Vitamin D3 [Citracal + D Maximum Caplet] 1 tab PO DAILY Montelukast Sodium [Singulair] 10 mg PO HS Aspirin EC [Ecotrin Low Dose] 81 mg PO DAILY Cetirizine HCl [Zyrtec] 10 mg PO DAILY Docusate [Colace] 100 mg PO DAILY Discharge Medication List Simvastatin [Zocor] 20 mg PO HS 02/23/14 [History] Omeprazole 40 mg PO DAILY 02/14/19 [History] Calcium Citrate/Vitamin D3 [Citracal + D Maximum Caplet] 1 tab PO DAILY 02/23/20 [History] Cyanocobalamin (Vitamin B-12) [Vitamin B-12] 1,000 mcg PO MOWEFR 02/23/20 [History] Metoprolol Tartrate [Lopressor] 12.5 mg PO BID 02/23/20 [History] Vitamin B Complex 1 cap PO CLAUDIO 02/23/20 [History] Montelukast Sodium [Singulair] 10 mg PO HS 03/15/20 [History] Aspirin EC [Ecotrin Low Dose] 81 mg PO DAILY 01/28/21 [History] Cetirizine HCl [Zyrtec] 10 mg PO DAILY 01/28/21 [History] Docusate [Colace] 100 mg PO DAILY 01/28/21 [History] polyethylene glycoL 3350 [Miralax] 17 gm PO DAILY #30 packet 02/02/21 [Rx] Follow up Appointment(s)/Referral(s): Clementine Arce MD [Medical Doctor] - 1-2 days Patient Instructions/Handouts: Polyethylene Glycol 3350 (By mouth), Bowel Obstruction (DC) Activity/Diet/Wound Care/Special Instructions: Diet as tolerated- activity limited until seen by DR. Flores on Wednesday to scheduled appointments
== END 2021-02-02 12:20 | disposition home or self-care (01) | DRG 389 ==
LOC: EC 15:15 → 5NMEDONC 18:34
PROVIDERS: ADMIT Family Medicine; ATTEND Family Medicine
DX: K56.690 Other partial intestinal obstruction (principal); K42.0 Umbilical hernia with obstruction, without gangrene; I25.10 Atherosclerotic heart disease of native coronary artery without angina pectoris; K57.30 Diverticulosis of large intestine without perforation or abscess without bleeding; I10 Essential (primary) hypertension; B18.2 Chronic viral hepatitis C; E78.5 Hyperlipidemia, unspecified; J30.2 Other seasonal allergic rhinitis; J45.20 Mild intermittent asthma, uncomplicated; Z20.822 Contact with and (suspected) exposure to COVID-19; D72.829 Elevated white blood cell count, unspecified; H91.90 Unspecified hearing loss, unspecified ear; Z82.49 Family history of ischemic heart disease and other diseases of the circulatory system; Z96.1 Presence of intraocular lens; Z79.82 Long term (current) use of aspirin; Z79.899 Other long term (current) drug therapy; Z87.891 Personal history of nicotine dependence; Z88.0 Allergy status to penicillin; Z90.49 Acquired absence of other specified parts of digestive tract; Z95.5 Presence of coronary angioplasty implant and graft; Z88.8 Allergy status to other drugs, medicaments and biological substances
CPT/HCPCS: 36415; 74018; 74019; 74177; 80048; 80053; 81001; 83605; 83690; 83735; 85025; 85027; 87040; 96374; 96375; 99285

== ENCOUNTER 2021-03-12 08:10 | Inpatient (IN) | payer MEDICARE ==
[2021-03-12] MEDS ORDERED: SODIUM CHLORIDE 0.9% 1,000 ML IV STA (08:24)
--- NOTE | 2021-03-12 08:56 | ED ---
General Adult HPI - General Chief complaint: Abdominal Pain Stated complaint: Abd pain Time Seen by Provider: 03/12/21 08:23 Source: patient, family Mode of arrival: wheelchair Limitations: no limitations - History of Present Illness Initial comments: Patient is an 85-year-old male with past medical history of coronary artery disease, hypertension, hyperlipidemia and multiple bowel obstructions who presents to the emergency department for abdominal pain. Patient states that he has left upper quadrant abdominal pain consistent with his previous history of bowel obstructions due to adhesions. Reports that he is under the care of Dr. Maxwell and Dr. berkowitz for his recurrent issues. He was last hospitalized in January for similar complaints. He presents today and states that his pain started yesterday around 3 PM. He hasn't had anything to eat or drink makes him weak. He admits to loose stools and some formed bowel movement. Denies melenic stools or hematochezia. He has not taken anything for his pain. No urinary complaints. He denies any fevers. No other alleviating, precipitating or modifying factors - Related Data Home Medications Medication Instructions Recorded Confirmed Simvastatin [Zocor] 20 mg PO HS 02/23/14 03/12/21 Omeprazole 40 mg PO DAILY 02/14/19 03/12/21 Calcium Citrate/Vitamin D3 1 tab PO DAILY 02/23/20 03/12/21 [Citracal + D Maximum Caplet] Metoprolol Tartrate [Lopressor] 12.5 mg PO DAILY 02/23/20 03/12/21 Vitamin B Complex 1 cap PO CLAUDIO 02/23/20 03/12/21 Montelukast Sodium [Singulair] 10 mg PO HS 03/15/20 03/12/21 Aspirin EC [Ecotrin Low Dose] 81 mg PO DAILY 01/28/21 03/12/21 Docusate [Colace] 100 mg PO DAILY 01/28/21 03/12/21 Loratadine [Claritin] 10 mg PO DAILY 03/12/21 03/12/21 Previous Rx's Medication Instructions Recorded Ciprofloxacin HCl [Cipro] 500 mg PO BID 7 Days #14 tab 03/14/21 metroNIDAZOLE [Flagyl] 500 mg PO TID #21 tab 03/14/21 Allergies Allergy/AdvReac Type Severity Reaction Status Date / Time atenolol Allergy Syncope Verified 03/12/21 11:32 Penicillins Allergy Rash/Hives Verified 03/12/21 11:32 prednisone Allergy Rash/Hives Verified 03/12/21 11:32 Review of Systems ROS Statement: Those systems with pertinent positive or pertinent negative responses have been documented in the HPI. ROS Other: All systems not noted in ROS Statement are negative. Past Medical History Past Medical History: Asthma, Coronary Artery Disease (CAD), Chest Pain / Angina, GERD/Reflux, GI Bleed, Hearing Disorder / Deafness, Hyperlipidemia, Hypertension, Liver Disease, Osteoarthritis (OA) Additional Past Medical History / Comment(s): Recurrent SBO d/t adhesions with conservative treatment and surgical treatment, mild leaky heart valve, bleeding ulcer/lower GI bleed many years ago with exsanguination and stayed in ICU/had transfusions then another less severe lower GI bleed a few years later, upper GI bleed, duodenal ulcer, hiatal hernia, hepatitis C d/t blood transfusion-2nd treatment successful, some recent short term memory issues/tremors in hands and balance issues past few months being worked up, constipation, diverticulitis and past pre cancerous polypectomies-last colonoscopy was normal in 2018, low back pain, L shoulder pain, 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 History of Any Multi-Drug Resistant Organisms: None Reported Past Surgical History: Bowel Resection, Cholecystectomy, Heart Catheterization With Stent, Orthopedic Surgery Additional Past Surgical History / Comment(s): 06/2018 PCI with stent, 1999 PCI with 2 stents, laparotomy with lysis of adhesions, R rotator cuff repair, R knee arthroscopy, R upper chest lipoma removed, bilateral cataract removals/lens implants, EGD and colonoscopies with pre cancerous polypectomies-last colonoscopy in 2018 was normal per pt. Past Anesthesia/Blood Transfusion Reactions: Blood Transfusion Reaction Additional Past Anesthesia/Blood Transfusion Reaction / Comment(s): CONTRACTED HEP C FROM A BLOOD TRANSFUSION 35-40 YEARS AGO. Date of Last Stent Placement:: JUN 2018 Past Psychological History: No Psychological Hx Reported Smoking Status: Former smoker Past Alcohol Use History: None Reported Past Drug Use History: None Reported - Past Family History Mother Family Medical History: Cancer Additional Family Medical History / Comment(s): Other at age 80 from acute kidney injury following surgery. Patient had bladder suspension surgery and she developed to have possibly uterine cancer however she ended up with renal failure refused hemodialysis Father Family Medical History: Cancer, Deep Vein Thrombosis (DVT), Pulmonary Embolus Additional Family Medical History / Comment(s): LUNG CANCER. Father in his mid 60s due to blood clots with history of bladder cancer . The cause of pulmonary embolism. Brother(s) Family Medical History: Cancer, Coronary Artery Disease (CAD) Additional Family Medical History / Comment(s): Patient has one brother with hi story of non-Hodgkin's lymphoma diagnosed 15 YEARS AGO. He does not have any sisters. He has adult children with no major medical problem basically 2 sons and a daughter. General Exam Limitations: no limitations General appearance: alert, in no apparent distress Head exam: Present: atraumatic, normocephalic, normal inspection Eye exam: Present: normal appearance, PERRL, EOMI. Absent: scleral icterus, conjunctival injection, periorbital swelling ENT exam: Present: normal exam, mucous membranes moist Neck exam: Present: normal inspection. Absent: tenderness, meningismus, lymphadenopathy Respiratory exam: Present: normal lung sounds bilaterally. Absent: respiratory distress, wheezes, rales, rhonchi, stridor Cardiovascular Exam: Present: regular rate, normal rhythm, normal heart sounds. Absent: systolic murmur, diastolic murmur, rubs, gallop, clicks GI/Abdominal exam: Present: soft, tenderness (generalized - more significant in the luq), normal bowel sounds. Absent: distended, guarding, rebound, rigid Extremities exam: Present: normal inspection, full ROM, normal capillary refill. Absent: tenderness, pedal edema, joint swelling, calf tenderness Back exam: Present: normal inspection Neurological exam: Present: alert, oriented X3, CN II-XII intact Psychiatric exam: Present: normal affect, normal mood Skin exam: Present: warm, dry, intact, normal color. Absent: rash Course Vital Signs 03/12/21 03/12/21 03/12/21 08:17 12:00 15:00 Temperature 98.1 F 98.1 F Pulse Rate 57 L 70 68 Pulse Rate [ Pulse Oximetery ] Respiratory 18 20 18 Rate Blood Pressure 115/75 132/78 126/77 Blood Pressure [Left Arm] O2 Sat by Pulse 99 99 96 Oximetry 03/12/21 03/12/21 17:33 17:34 Temperature 97.9 F 98.0 F Pulse Rate 67 Pulse Rate [ 59 L Pulse Oximetery ] Respiratory 16 18 Rate Blood Pressure 124/67 Blood Pressure 148/75 [Left Arm] O2 Sat by Pulse 98 99 Oximetry EKG Findings - EKG Comments: EKG Findings:: EKG demonstrates a normal sinus rhythm with a ventricular rate of 74. RI interval 2 O2. QRS 72. QTC of 435. No acute ST segment elevations or depressions. Overall low voltage. Medical Decision Making - Medical Decision Making On arrival patient was placed into room 11. A thorough history and physical exam is performed. IV is established. Patient is offered pain medicine and nausea medications however he refuses at this time. As the patient has had mult iple CTs before for similar complaint, laboratory studies are ordered and the patient has a KUB formed. Laboratory studies are reviewed and demonstrate a creatinine of 1.29 which is higher than the patient's normal baseline. KUB demonstrates a nonspecific obstructive pattern. CT demonstrates acute enteritis which could be infectious, inflammatory or ischemic. It causes a mild or partial small bowel obstruction. Because of these findings I did recommend admission for surgical consult. Spoke with Dr. Orlando who agreed to admit the patient. Pain and nausea medications are ordered. I did place Dr. Maxwell on consult. Patient is awaiting a bed on the floor - Lab Data Result diagrams: 03/14/21 06:43 03/14/21 06:43 Lab Results 03/12/21 03/12/21 03/12/21 Range/Units 08:26 09:08 09:08 WBC 10.9 H (3.8-10.6) k/uL RBC 5.44 (4.30-5.90) m/uL Hgb 17.7 H D (13.0-17.5) gm/dL Hct 51.8 (39.0-53.0) % MCV 95.1 (80.0-100.0) fL MCH 32.5 (25.0-35.0) pg MCHC 34.1 (31.0-37.0) g/dL RDW 13.7 (11.5-15.5) % Plt Count 261 (150-450) k/uL MPV 7.6 Neutrophils % 68 % Lymphocytes % 18 % Monocytes % 7 % Eosinophils % 3 % Basophils % 1 % Neutrophils # 7.4 (1.3-7.7) k/uL Lymphocytes # 2.0 (1.0-4.8) k/uL Monocytes # 0.8 (0-1.0) k/uL Eosinophils # 0.3 (0-0.7) k/uL Basophils # 0.1 (0-0.2) k/uL PT (9.0-12.0) sec INR (<1.2) APTT (22.0-30.0) sec Sodium 138 (137-145) mmol/L Potassium 4.6 (3.5-5.1) mmol/L Chloride 103 (98-107) mmol/L Carbon Dioxide 22 (22-30) mmol/L Anion Gap 13 mmol/L BUN 17 (9-20) mg/dL Creatinine 1.29 H (0.66-1.25) mg/dL Est GFR (CKD-EPI)AfAm 59 (>60 ml/min/1.73 sqM) Est GFR (CKD-EPI)NonAf 51 (>60 ml/min/1.73 sqM) Glucose 119 H (74-99) mg/dL Plasma Lactic Acid Luiz 1.2 (0.7-2.0) mmol/L Calcium 10.0 (8.4-10.2) mg/dL Total Bilirubin 0.6 (0.2-1.3) mg/dL AST 29 (17-59) U/L ALT 27 (4-49) U/L Alkaline Phosphatase 82 (38-126) U/L Total Protein 7.4 (6.3-8.2) g/dL Albumin 4.7 (3.5-5.0) g/dL Lipase 39 (23-300) U/L Urine Color Urine Appearance (Clear) Urine pH (5.0-8.0) Ur Specific [place] (1.001-1.035) Urine Protein (Negative) Urine Glucose (UA) (Negative) Urine Ketones (Negative) Urine Blood (Negative) Urine Nitrite (Negative) Urine Bilirubin (Negative) Urine Urobilinogen (<2.0) mg/dL Ur Leukocyte Esterase (Negative) Urine WBC (0-5) /hpf Urine Mucus (None) /hpf 03/12/21 03/12/21 Range/Units 09:08 10:28 WBC (3.8-10.6) k/uL RBC (4.30-5.90) m/uL Hgb (13.0-17.5) gm/dL Hct (39.0-53.0) % MCV (80.0-100.0) fL MCH (25.0-35.0) pg MCHC (31.0-37.0) g/dL RDW (11.5-15.5) % Plt Count (150-450) k/uL MPV Neutrophils % % Lymphocytes % % Monocytes % % Eosinophils % % Basophils % % Neutrophils # (1.3-7.7) k/uL Lymphocytes # (1.0-4.8) k/uL Monocytes # (0-1.0) k/uL Eosinophils # (0-0.7) k/uL Basophils # (0-0.2) k/uL PT 9.8 (9.0-12.0) sec INR 0.9 (<1.2) APTT 23.1 (22.0-30.0) sec Sodium (137-145) mmol/L Potassium (3.5-5.1) mmol/L Chloride (98-107) mmol/L Carbon Dioxide (22-30) mmol/L Anion Gap mmol/L BUN (9-20) mg/dL Creatinine (0.66-1.25) mg/dL Est GFR (CKD-EPI)AfAm (>60 ml/min/1.73 sqM) Est GFR (CKD-EPI)NonAf (>60 ml/min/1.73 sqM) Glucose (74-99) mg/dL Plasma Lactic Acid Luiz (0.7-2.0) mmol/L Calcium (8.4-10.2) mg/dL Total Bilirubin (0.2-1.3) mg/dL AST (17-59) U/L ALT (4-49) U/L Alkaline Phosphatase (38-126) U/L Total Protein (6.3-8.2) g/dL Albumin (3.5-5.0) g/dL Lipase (23-300) U/L Urine Color Yellow Urine Appearance Clear (Clear) Urine pH 5.5 (5.0-8.0) Ur Specific [place] 1.021 (1.001-1.035) Urine Protein 1+ H (Negative) Urine Glucose (UA) Negative (Negative) Urine Ketones Negative (Negative) Urine Blood Negative (Negative) Urine Nitrite Negative (Negative) Urine Bilirubin Negative (Negative) Urine Urobilinogen <2.0 (<2.0) mg/dL Ur Leukocyte Esterase Negative (Negative) Urine WBC 2 (0-5) /hpf Urine Mucus Many H (None) /hpf Disposition Clinical Impression: Partial small bowel obstruction, Loose stools Disposition: ADMITTED IP TO THIS [facility] Condition: Stable Is patient prescribed a controlled substance at d/c from ED?: No Decision to Admit Reason: Admit from EC Decision Date: 03/12/21 Decision Time: 11:49
[2021-03-12 09:14] LABS: Basophils # (A) 0.1 k/uL (0-0.2); Basophils % (A) 1 %; Eosinophils # (A) 0.3 k/uL (0-0.7); Eosinophils % (A) 3 %; HCT 51.8 % (39.0-53.0); Lymphocytes % (A) 18 %; MCH 32.5 pg (25.0-35.0); MCHC 34.1 g/dL (31.0-37.0); MCV 95.1 fL (80.0-100.0); Mean Platelet Volume 7.6; Monocytes # (A) 0.8 k/uL (0-1.0); Monocytes % (A) 7 %; Neutrophils # (A) 7.4 k/uL (1.3-7.7); Neutrophils % (A) 68 %; Platelet Count 261 k/uL (150-450); RBC 5.44 m/uL (4.30-5.90); RDW 13.7 % (11.5-15.5); WBC 10.9 k/uL (3.8-10.6)
[2021-03-12 09:25] LABS: HGB 17.7 gm/dL (13.0-17.5)
[2021-03-12 09:34] LABS: INR 0.9 (<1.2); Partial Thromboplastin Time 23.1 sec (22.0-30.0); Prothrombin Time 9.8 sec (9.0-12.0)
[2021-03-12 09:41] LABS: Albumin 4.7 g/dL (3.5-5.0); Potassium 4.6 mmol/L (3.5-5.1); Total Bilirubin 0.6 mg/dL (0.2-1.3); Total Protein 7.4 g/dL (6.3-8.2)
--- NOTE | 2021-03-12 10:27 | XR ---
EXAMINATION TYPE: XR KUB DATE OF EXAM: 03/12/2021 10:19 AM CLINICAL HISTORY: Pain. History of bowel obstructions. TECHNIQUE: Single upright KUB image of the abdomen is obtained. COMPARISON: Abdominal x-ray and CT January 28, 2021. FINDINGS: Gas seen in nondistended stomach. Scattered gas seen in nondistended small and large bowel loops with few scattered air-fluid levels which is nonspecific finding. Cholecystectomy clips are red emonstrated. Visualized lung bases are clear. No free air. Visualized osseous structures are intact. IMPRESSION: Overall nonspecific but favor nonobstructive bowel gas pattern on current study.
[2021-03-12 10:45] LABS: Appearance,Urine Clear (Clear); Bilirubin,Urine Negative (Negative); Blood,Urine Negative (Negative); Color,Urine Yellow; Glucose,Urine (UA) Negative (Negative); Ketones,Urine Negative (Negative); Leukocyte Esterase,Urine Negative (Negative); Mucus,Urine Many /hpf; Nitrite,Urine Negative (Negative); PH, Urine 5.5 (5.0-8.0); Protein,Urine 1+ (Negative); Specific Gravity,Urine 1.021 (1.001-1.035); Urobilinogen,Urine <2.0 mg/dL (<2.0); WBC,Urine 2 /hpf (0-5)
--- NOTE | 2021-03-12 11:08 | CT ---
EXAMINATION TYPE: CT abdomen pelvis w con DATE OF EXAM: 03/12/2021 COMPARISON: CT January 28, 2021 and several older studies HISTORY: History of bowel obstructions with recurrent pain. CT DLP: 979.1 mGycm, Automated Exposure Control for Dose Reduction was Utilized. CONTRAST: CT scan of the abdomen and pelvis is performed without oral but with IV Contrast, patient injected wi th 100 mL of Isovue 300. FINDINGS: LUNG BASES: No significant abnormality is appreciated. LIVER/GB: Cholecystectomy clips are redemonstrated. PANCREAS: No significant abnormality is seen. SPLEEN: No significant abnormality is seen. ADRENALS: No significant abnormality is seen. KIDNEYS: Symmetric cortical medullary uptake and excretion without hydronephrosis seen bilaterally. S imple 2.1 thin-walled cm cyst laterally midpole of the left kidney axial image 34 series 301 is redem onstrated. BOWEL: Evaluation of bowel suboptimal secondary to lack of enteric contrast. Stomach not suspiciously dilated on current study There is 2.1 cm duodenal diverticulum second portion axial image 29 redemon strated. No suspicious dilatation of duodenal sweep. There is gradual transition to more prominent sm all bowel loops with moderate concentric wall thickening in the mid to lower abdomen more prominent l eft of midline. Terminal ileum is fluid-filled and not dilated. No abnormal wall thickening. Scattere d colonic diverticula are redemonstrated greatest in the left and sigmoid colon. No CT evidence for a cute diverticulitis. There is ball containing eventration or umbilical hernia redemonstrated unchange d from prior studies. No obstruction is present. Some small bowel loops dilated up to 3.2 cm noted. N o free air. PROSTATE/SEMINAL VESICLES: Prostate gland is stable and mildly enlarged. LYMPH NODES: No greater than 1cm abdominal or pelvic lymph nodes are appreciated. OSSEOUS STRUCTURES: Multilevel vacuum disc phenomenon and disc space narrowing in the spine most prom inent at lumbosacral junction. Multilevel facet arthropathy. OTHER: Mild/moderate calcified plaque of the aorta extends into branch vessels. IMPRESSION: New central fairly long segment acute enteritis. Differential includes infectious, inflam matory, and ischemic etiologies. This is likely causing mild or partial small bowel obstruction on cu rrent study similar to most recent prior study.
[2021-03-12] MEDS ORDERED: ONDANSETRON 4 MG/2 ML VIAL IVP PRN (11:49)
[2021-03-12] MEDS ORDERED: MORPHINE SULFATE 4 MG/ML SYRINGE IV PRN (11:49)
[2021-03-12] MEDS ORDERED: NALOXONE 0.4 MG/ML 1 ML VIAL IV PRN (11:49)
[2021-03-12] MEDS: SODIUM CHLORIDE 0.9% 1,000 ML IV SCH (12:05)
--- NOTE | 2021-03-12 15:24 | P.GSCN ---
History of Present Illness Consult date: 03/12/21 Reason for Consult: Abdominal pain History of present illness: The patient is an 85-year-old man well-known to the surgical service. He has several admissions over the last few years with a complete bowel obstructions. Last hospitalization was in January and resolved quickly. Yesterday he began having abdominal pain again. He stopped eating and drinking. This pain was different. He began to have crampy abdominal pain and multiple formed and loose stools throughout the night. He's been passing gas. No fevers or chills. No blood in the stool or dark tarry stool. His has not been ill. Review of Systems All systems: negative Past Medical History Past Medical History: Asthma, Coronary Artery Disease (CAD), Chest Pain / Angina, GERD/Reflux, GI Bleed, Hearing Disorder / Deafness, Hyperlipidemia, Hypertension, Liver Disease, Osteoarthritis (OA) Additional Past Medical History / Comment(s): Recurrent SBO d/t adhesions with conservative treatment and surgical treatment, mild leaky heart valve, bleeding ulcer/lower GI bleed many years ago with exsanguination and stayed in ICU/had transfusions then another less severe lower GI bleed a few years later, upper GI bleed, duodenal ulcer, hiatal hernia, hepatitis C d/t blood transfusion-2nd treatment successful, some recent short term memory issues/tremors in hands and balance issues past few months being worked up, constipation, diverticulitis and past pre cancerous polypectomies-last colonoscopy was normal in 2018, low back pain, L shoulder pain, 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 History of Any Multi-Drug Resistant Organisms: None Reported Past Surgical History: Bowel Resection, Cholecystectomy, Heart Catheterization With Stent, Orthopedic Surgery Additional Past Surgical History / Comment(s): 06/2018 PCI with stent, 1999 PCI with 2 stents, laparotomy with lysis of adhesions, R rotator cuff repair, R knee arthroscopy, R upper chest lipoma removed, bilateral cataract removals/lens implants, EGD and colonoscopies with pre cancerous polypectomies-last colonoscopy in 2018 was normal per pt. Past Anesthesia/Blood Transfusion Reactions: Blood Transfusion Reaction Additional Past Anesthesia/Blood Transfusion Reaction / Comm: CONTRACTED HEP C FROM A BLOOD TRANSFUSION 35-40 YEARS AGO. Date of Last Stent Placement:: JUN 2018 Past Psychological History: No Psychological Hx Reported Smoking Status: Former smoker Past Alcohol Use History: None Reported Past Drug Use History: None Reported - Past Family History Mother Family Medical History: Cancer Additional Family Medical History / Comment(s): Other at age 80 from acute kidney injury following surgery. Patient had bladder suspension surgery and she developed to have possibly uterine cancer however she ended up with renal failure refused hemodialysis Father Family Medical History: Cancer, Deep Vein Thrombosis (DVT), Pulmonary Embolus Additional Family Medical History / Comment(s): LUNG CANCER. Father in his mid 60s due to blood clots with history of bladder cancer . The cause of pulmonary embolism. Brother(s) Family Medical History: Cancer, Coronary Artery Disease (CAD) Additional Family Medical History / Comment(s): Patient has one brother with history of non-Hodgkin's lymphoma diagnosed 15 YEARS AGO. He does not have any sisters. He has adult children with no major medical problem basically 2 sons and a daughter. Medications and Allergies Home Medications Medication Instructions Recorded Confirmed Type Simvastatin [Zocor] 20 mg PO HS 02/23/14 03/12/21 History Omeprazole 40 mg PO DAILY 02/14/19 03/12/21 History Calcium Citrate/Vitamin D3 1 tab PO DAILY 02/23/20 03/12/21 History [Citracal + D Maximum Caplet] Metoprolol Tartrate [Lopressor] 12.5 mg PO DAILY 02/23/20 03/12/21 History Vitamin B Complex 1 cap PO CLAUDIO 02/23/20 03/12/21 History Montelukast Sodium [Singulair] 10 mg PO HS 03/15/20 03/12/21 History Aspirin EC [Ecotrin Low Dose] 81 mg PO DAILY 01/28/21 03/12/21 History Docusate [Colace] 100 mg PO DAILY 01/28/21 03/12/21 History Loratadine [Claritin] 10 mg PO DAILY 03/12/21 03/12/21 History Allergies Allergy/AdvReac Type Severity Reaction Status Date / Time atenolol Allergy Syncope Verified 03/12/21 11:32 Penicillins Allergy Rash/Hives Verified 03/12/21 11:32 prednisone Allergy Rash/Hives Verified 03/12/21 11:32 Surgical - Exam Osteopathic Statement: *. No significant issues noted on an osteopathic structural exam other than those noted in the History and Physical/Consult. Vital Signs Temp Pulse Resp BP Pulse Ox 98.1 F 57 L 18 115/75 99 03/12/21 08:17 03/12/21 08:17 03/12/21 08:17 03/12/21 08:17 03/12/21 08:17 - General well developed, well nourished, no distress - Cardiovascular Rhythm: regular - Abdomen Abdomen: soft, tender (Mild diffuse tenderness), no guarding, no rigid, no rebound, no distended (No tympany to percussion) Results - Labs 03/12/21 09:08 03/12/21 09:08 Abnormal Lab Results - Last 24 Hours (Table) 03/12/21 03/12/21 03/12/21 Range/Units 09:08 09:08 10:28 WBC 10.9 H (3.8-10.6) k/uL Hgb 17.7 H D (13.0-17.5) gm/dL Creatinine 1.29 H (0.66-1.25) mg/dL Glucose 119 H (74-99) mg/dL Urine Protein 1+ H (Negative) Urine Mucus Many H (None) /hpf Diabetes panel 03/12/21 Range/Units 09:08 Sodium 138 (137-145) mmol/L Potassium 4.6 (3.5-5.1) mmol/L Chloride 103 (98-107) mmol/L Carbon Dioxide 22 (22-30) mmol/L BUN 17 (9-20) mg/dL Creatinine 1.29 H (0.66-1.25) mg/dL Glucose 119 H (74-99) mg/dL Calcium 10.0 (8.4-10.2) mg/dL AST 29 (17-59) U/L ALT 27 (4-49) U/L Alkaline Phosphatase 82 (38-126) U/L Total Protein 7.4 (6.3-8.2) g/dL Albumin 4.7 (3.5-5.0) g/dL Calcium panel 03/12/21 Range/Units 09:08 Calcium 10.0 (8.4-10.2) mg/dL Albumin 4.7 (3.5-5.0) g/dL Pituitary panel 03/12/21 Range/Units 09:08 Sodium 138 (137-145) mmol/L Potassium 4.6 (3.5-5.1) mmol/L Chloride 103 (98-107) mmol/L Carbon Dioxide 22 (22-30) mmol/L BUN 17 (9-20) mg/dL Creatinine 1.29 H (0.66-1.25) mg/dL Glucose 119 H (74-99) mg/dL Calcium 10.0 (8.4-10.2) mg/dL Adrenal panel 03/12/21 Range/Units 09:08 Sodium 138 (137-145) mmol/L Potassium 4.6 (3.5-5.1) mmol/L Chloride 103 (98-107) mmol/L Carbon Dioxide 22 (22-30) mmol/L BUN 17 (9-20) mg/dL Creatinine 1.29 H (0.66-1.25) mg/dL Glucose 119 H (74-99) mg/dL Calcium 10.0 (8.4-10.2) mg/dL Total Bilirubin 0.6 (0.2-1.3) mg/dL AST 29 (17-59) U/L ALT 27 (4-49) U/L Alkaline Phosphatase 82 (38-126) U/L Total Protein 7.4 (6.3-8.2) g/dL Albumin 4.7 (3.5-5.0) g/dL - Imaging CT scan - abdomen: report reviewed, image reviewed Assessment and Plan (1) Enteritis Current Visit: Yes Status: Acute Code(s): K52.9 - NONINFECTIVE GASTROENTERITIS AND COLITIS, UNSPECIFIED SNOMED Code(s): 26276429 (2) Loose stools Current Visit: Yes Status: Acute Code(s): R19.5 - OTHER FECAL ABNORMALITIES SNOMED Code(s): 219412117 (3) Abdominal pain Current Visit: No Status: Acute Code(s): R10.9 - UNSPECIFIED ABDOMINAL PAIN SNOMED Code(s): 36580342 Plan: At this point there is no evidence of a small bowel obstruction. The CT shows some thickening of the small bowel which would be more consistent with ente ritis. Recommend bowel rest. IV fluids, antibiotics, pain medication as needed. Serial exams. Currently nonsurgical. I will follow with you.
[2021-03-12] MEDS: ATORVASTATIN 10 MG TAB PO SCH (20:35)
[2021-03-12] MEDS: MONTELUKAST 10 MG TAB PO SCH (20:35)
[2021-03-13] MEDS: SODIUM CHLORIDE 0.9% 1,000 ML IV SCH ×2 (05:59→12:40)
[2021-03-13] MEDS: PANTOPRAZOLE 40 MG TABLET PO SCH (07:40)
[2021-03-13] MEDS: METOPROLOL TARTRATE 12.5 MG TAB PO SCH (07:40)
[2021-03-13 08:57] LABS: Basophils # (A) 0.06 X 10*3/uL (0.00-0.10); Basophils % (A) 0.7 %; Eosinophils # (A) 0.48 X 10*3/uL (0.04-0.35); HCT 42.8 % (39.6-50.0); HGB 14.3 g/dL (13.0-17.0); Lymphocytes % (A) 28.5 %; MCH 31.6 pg (27.0-32.0); MCHC 33.4 g/dL (32.0-37.0); MCV 94.5 fL (80.0-97.0); Mean Platelet Volume 9.8 fL (9.5-12.2); Monocytes # (A) 0.84 X 10*3/uL (0.20-1.00); Monocytes % (A) 10.4 %; Neutrophils # (A) 4.35 X 10*3/uL (1.80-7.70); Platelet Count 232 X 10*3/uL (140-440); RBC 4.53 X 10*6/uL (4.40-5.60); RDW 13.3 % (11.5-14.5); WBC 8.06 X 10*3/uL (4.50-10.00)
[2021-03-13 09:13] LABS: African American GFR (CKD) 53.5 (60.0-200.0); Anion Gap 8.9 mmol/L (4.00-12.00); BUN/Creat Ratio 12.14 Ratio (12.00-20.00); Calcium 8.6 mg/dL (8.7-10.3); Carbon Dioxide 24.1 mmol/L (21.6-31.8); Non-African American GFR(CKD) 46.1 (60.0-200.0); Potassium 4.3 mmol/L (3.5-5.5)
--- NOTE | 2021-03-13 10:20 | P.HPIM ---
History of Present Illness H&P Date: 03/12/21 Chief Complaint: Abdominal pain This is a pleasant 84-year-old gentleman, patient of Dr. Arce with recurrent history of bowel obstruction who is known to have history of asthma, CAD, hyperlipidemia, hypertension, and history of heart disease post angioplasty and stent placement in the past. Patient has had multiple missions for the same. He regularly follows with Dr. Maxwell. Patient complains of the pain, who recently was admitted January 2021, for same reasons. Patient has had dietary changes, for which she is on a low residue diet, however she had lots of corn, and nuts. Thereafter patient has complained of abdominal pain, left-sided, along with liquid stools. Patient denies any fever no chills, pain is out of 7 out of 10, started in the lower abdomen, now staying on the left lower quadrant area. In the emergency room, Laboratory studies are reviewed and demonstrate a creatinine of 1.29 which is higher than the patient's normal baseline. KUB demonstrates a nonspecific obstructive pattern. CT demonstrates acute enteritis which could be infectious, inflammatory or ischemic. It causes a mild or partial small bowel obstruction. Patient is placed nothing by mouth, with consultations surgery. Past Medical History Past Medical History: Asthma, Coronary Artery Disease (CAD), Chest Pain / Angina, GERD/Reflux, GI Bleed, Hearing Disorder / Deafness, Hyperlipidemia, Hypertension, Liver Disease, Osteoarthritis (OA) Additional Past Medical History / Comment(s): Recurrent SBO d/t adhesions with conservative treatment and surgical treatment, mild leaky heart valve, bleeding ulcer/lower GI bleed many years ago with exsanguination and stayed in ICU/had transfusions then another less severe lower GI bleed a few years later, upper GI bleed, duodenal ulcer, hiatal hernia, hepatitis C d/t blood transfusion-2nd treatment successful, some recent short term memory issues/tremors in hands and balance issues past few months being worked up, constipation, diverticulitis and past pre cancerous polypectomies-last colonoscopy was normal in 2018, low back pain, L shoulder pain, gout-saw cop winder in past, 06/2018 shingelles, SENECA-CA[place]UGA bilaterally, ventral hernia. History of Any Multi-Drug Resistant Organisms: None Reported Past Surgical History: Bowel Resection, Cholecystectomy, Heart Catheterization With Stent, Orthopedic Surgery Additional Past Surgical History / Comment(s): 06/2018 PCI with stent, 2000 PCI with 2 stents, laparotomy with lysis of adhesions, R rotator cuff repair, R knee arthroscopy, R upper chest lipoma removed, bilateral cataract removals/lens implants, EGD and colonoscopies with pre cancerous polypectomies-last colonoscopy in 2017 was normal per pt. Past Anesthesia/Blood Transfusion Reactions: Blood Transfusion Reaction Additional Past Anesthesia/Blood Transfusion Reaction / Comment(s): CONTRACTED HEP C FROM A BLOOD TRANSFUSION 35-40 YEARS AGO. Date of Last Stent Placement:: JUN 2018 Past Psychological History: No Psychological Hx Reported Smoking Status: Former smoker Past Alcohol Use History: None Reported Past Drug Use History: None Reported - Past Family History Mother Family Medical History: Cancer Additional Family Medical History / Comment(s): Other at age 80 from acute kidney injury following surgery. Patient had bladder suspension surgery and she developed to have possibly uterine cancer however she ended up with renal failure refused hemodialysis Father Family Medical History: Cancer, Deep Vein Thrombosis (DVT), Pulmonary Embolus Additional Family Medical History / Comment(s): LUNG CANCER. Father in his mid 60s due to blood clots with history of bladder cancer . The cause of pulmonary embolism. Brother(s) Family Medical History: Cancer, Coronary Artery Disease (CAD) Additional Family Medical History / Comment(s): Patient has one brother with history of non-Hodgkin's lymphoma diagnosed 15 YEARS AGO. He does not have any sisters. He has adult children with no major medical problem basically 2 sons and a daughter. Medications and Allergies Home Medications Medication Instructions Recorded Confirmed Type Simvastatin [Zocor] 20 mg PO HS 02/23/14 03/12/21 History Omeprazole 40 mg PO DAILY 02/14/19 03/12/21 History Calcium Citrate/Vitamin D3 1 tab PO DAILY 02/23/20 03/12/21 History [Citracal + D Maximum Caplet] Metoprolol Tartrate [Lopressor] 12.5 mg PO DAILY 02/23/20 03/12/21 History Vitamin B Complex 1 cap PO CLAUDIO 02/23/20 03/12/21 History Montelukast Sodium [Singulair] 10 mg PO HS 03/15/20 03/12/21 History Aspirin EC [Ecotrin Low Dose] 81 mg PO DAILY 01/28/21 03/12/21 History Docusate [Colace] 100 mg PO DAILY 01/28/21 03/12/21 History Loratadine [Claritin] 10 mg PO DAILY 03/12/21 03/12/21 History Allergies Allergy/AdvReac Type Severity Reaction Status Date / Time atenolol Allergy Syncope Verified 03/12/21 11:32 Penicillins Allergy Rash/Hives Verified 03/12/21 11:32 prednisone Allergy Rash/Hives Verified 03/12/21 11:32 Physical Exam Vitals: Vital Signs Temp Pulse Resp BP Pulse Ox 03/12/21 15:00 98.1 F 68 18 126/77 96 03/12/21 12:00 70 20 132/78 99 03/12/21 08:17 98.1 F 57 L 18 115/75 99 Intake and Output 03/12/21 03/12/21 03/12/21 06:59 14:59 22:59 Other: Weight 72.575 kg Results CBC & Chem 7: 03/13/21 05:44 03/13/21 05:44 Labs: Abnormal Lab Results - Last 24 Hours (Table) 03/12/21 03/12/21 03/12/21 Range/Units 09:08 09:08 10:28 WBC 10.9 H (3.8-10.6) k/uL Hgb 17.7 H D (13.0-17.5) gm/dL Creatinine 1.29 H (0.66-1.25) mg/dL Glucose 119 H (74-99) mg/dL Urine Protein 1+ H (Negative) Urine Mucus Many H (None) /hpf Assessment and Plan Plan: 1. Abdominal pain secondary to partial mechanical small bowel obstruction will monitor for possible suspected diverticulitis, patient was made nothing by mouth earlier. Consult with general surgeon, morphine for pain, Zofran for nausea, continue IV fluids 0.9 normal saline at 75 mL per hour.. 2. History of CAD post angioplasty and stent placement in the past patient has been on secondary prevention with metoprolol and simvastatin. Start IV metoprolol. She follows with Dr. Benedict 3. Hypertension. Oral Lopressor 4. Hyperlipidemia. Start simvastatin. 5. Seasonal ALLERGIES. Patient is normally on Zyrtec. 6. Mild intermittent asthma. Start Singulair 10 mg at bedtime 7. History of hepatitis C: Not active at this point. 8. GI prophylaxis: Patient will be on pantoprazole. 9. DVT prophylaxis: Patient will be on heparin subcu CODE STATUS: Full code.
--- NOTE | 2021-03-13 12:43 | P.PN ---
Subjective Progress Note Date: 03/13/21 This is a pleasant 84-year-old gentleman, patient of Dr. Arce with recurrent history of bowel obstruction who is known to have history of asthma, CAD, hyperlipidemia, hypertension, and history of heart disease post angioplasty and stent placement in the past. Patient has had multiple missions for the same. He regularly follows with Dr. Maxwell. Patient complains of the pain, who recently was admitted January 2021, for same reasons. Patient has had dietary changes, for which she is on a low residue diet, however she had lots of corn, and nuts. Thereafter patient has complained of abdominal pain, left-sided, along with liquid stools. Patient denies any fever no chills, pain is out of 7 out of 10, started in the lower abdomen, now staying on the left lower quadrant area. In the emergency room, Laboratory studies are reviewed and demonstrate a creatinine of 1.29 which is higher than the patient's normal baseline. KUB demonstrates a nonspecific obstructive pattern. CT demonstrates acute enteritis which could be infectious, inflammatory or ischemic. It causes a mild or partial small bowel obstruction. Patient is placed nothing by mouth, with consultations surgery. 03/13, abdominal pain and lower quadrant area has improved, there is some residual left lower quadrant pain, no nausea no vomiting, patient has no fever no chills, we'll going to start on clear liquid diet today, and proceed cautiously. Follow-up x-rays today, no liquid stools this time, there is tenderness in the left lower quadrant, with guarding on exam. Objective - Vital Signs Vital signs: Vital Signs Temp 97.8 F 03/13/21 07:21 Pulse 55 L 03/13/21 07:21 Resp 18 03/13/21 07:21 BP 127/70 03/13/21 07:21 Pulse Ox 93 L 03/13/21 07:21 Intake & Output 03/12/21 03/13/21 03/13/21 18:59 06:59 18:59 Output Total 200 Balance -200 Weight 72.575 kg Output: Urine 200 Other: # Voids 2 - Constitutional General appearance: Present: cooperative, no acute distress - EENT Eyes: Present: PERRLA, normal appearance - Neck Neck: Present: normal ROM - Respiratory Respiratory: bilateral: CTA, diminished - Cardiovascular Rhythm: regular Heart sounds: normal: S1, S2 - Gastrointestinal General gastrointestinal: Present: normal bowel sounds, tenderness. Absent: absent bowel sounds, decreased bowel sounds, distended, hepatomegaly, hyperactive bowel sounds, organomegaly, rigid, scaphoid, soft, splenomegaly, umbilical hernia, ventral hernia - Neurologic Neurologic: Present: CNII-XII intact - Musculoskeletal Musculoskeletal: Present: gait normal, strength equal bilaterally - Psychiatric Psychiatric: Present: A&O x's 3, appropriate affect - Labs CBC & Chem 7: 03/13/21 05:44 03/13/21 05:44 Labs: Abnormal Lab Results - Last 24 Hours (Table) 03/13/21 03/13/21 Range/Units 05:44 05:44 Eosinophils # 0.48 H (0.04-0.35) X 10*3/uL Est GFR (CKD-EPI)AfAm 53.5 L (60.0-200.0) Est GFR (CKD-EPI)NonAf 46.1 L (60.0-200.0) Calcium 8.6 L (8.7-10.3) mg/dL Assessment and Plan Plan: 1. Abdominal pain secondary to partial mechanical small bowel obstruction suspected diverticulitis, start IV Levaquin, and Flagyl, start clear liquid diet today, patient was made nothing by mouth earlier. Consult with general surgeon, she doesn't think that this is obstructive in nature, we will proceed cautiously.. morphine for pain, Zofran for nausea, continue IV fluids 0.9 normal saline at 75 mL per hour.. 2. History of CAD post angioplasty and stent placement in the past patient has been on secondary prevention with metoprolol and simvastatin. Start IV metoprolol. She follows with Dr. Benedict 3. Hypertension. Oral Lopressor 4. Hyperlipidemia. Start simvastatin. 5. Seasonal ALLERGIES. Patient is normally on Zyrtec. 6. Mild intermittent asthma. Start Singulair 10 mg at bedtime 7. History of hepatitis C: Not active at this point. 8. GI prophylaxis: Patient will be on pantoprazole. 9. DVT prophylaxis: Patient will be on heparin subcu CODE STATUS: Full code.
[2021-03-13] MEDS ORDERED: LEVOFLOXACIN 500MG-D5W PMX 500 MG in DEXTROSE/WATER 1 100ML.BAG IVPB SCH (13:00)
[2021-03-13] MEDS: metroNIDAZOLE-NS PMX 500 MG in SALINE 1 100ML.BAG IVPB SCH ×2 (16:01→23:13)
--- NOTE | 2021-03-13 16:29 | P.PN ---
Subjective Progress Note Date: 03/13/21 The patient is seen on rounds today. He's feeling much better. No diarrhea since last night. He's hungry. Tolerated a clear liquid diet. Would like something more to eat Objective - Vital Signs Vital signs: Vital Signs Temp 98.4 F 03/13/21 13:33 Pulse 65 03/13/21 13:33 Resp 18 03/13/21 13:33 BP 119/64 03/13/21 13:33 Pulse Ox 96 03/13/21 13:33 Intake & Output 03/12/21 03/13/21 03/13/21 18:59 06:59 18:59 Output Total 200 Balance -200 Weight 72.575 kg Output: Urine 200 Other: # Voids 2 - Constitutional General appearance: Present: cooperative, no acute distress - Gastrointestinal General gastrointestinal: Present: normal bowel sounds, soft. Absent: tenderness (No tenderness to palpation this afternoon) - Labs CBC & Chem 7: 03/13/21 05:44 03/13/21 05:44 Labs: Abnormal Lab Results - Last 24 Hours (Table) 03/13/21 03/13/21 Range/Units 05:44 05:44 Eosinophils # 0.48 H (0.04-0.35) X 10*3/uL Est GFR (CKD-EPI)AfAm 53.5 L (60.0-200.0) Est GFR (CKD-EPI)NonAf 46.1 L (60.0-200.0) Calcium 8.6 L (8.7-10.3) mg/dL Assessment and Plan (1) Enteritis Current Visit: Yes Status: Acute Code(s): K52.9 - NONINFECTIVE GASTROENTERITIS AND COLITIS, UNSPECIFIED SNOMED Code(s): 27345917 (2) Loose stools Current Visit: Yes Status: Acute Code(s): R19.5 - OTHER FECAL ABNORMALITIES SNOMED Code(s): 890249790 (3) Abdominal pain Current Visit: No Status: Acute Code(s): R10.9 - UNSPECIFIED ABDOMINAL PAIN SNOMED Code(s): 32169544 Plan: The patient is clinically improved. We will advance his diet. Serial exams. As long as he continues progressing, he could likely be discharged tomorrow if he tolerates a diet
[2021-03-13] MEDS: ATORVASTATIN 10 MG TAB PO SCH (20:07)
[2021-03-13] MEDS: MONTELUKAST 10 MG TAB PO SCH (20:07)
[2021-03-14] MEDS: SODIUM CHLORIDE 0.9% 1,000 ML IV SCH (06:25)
[2021-03-14 07:32] VITALS: BP 135/64; PULSE 57; RESP 16; TEMP 98.5
[2021-03-14] MEDS: metroNIDAZOLE-NS PMX 500 MG in SALINE 1 100ML.BAG IVPB SCH (09:11)
[2021-03-14] MEDS: PANTOPRAZOLE 40 MG TABLET PO SCH (09:13)
[2021-03-14] MEDS: METOPROLOL TARTRATE 12.5 MG TAB PO SCH (09:13)
[2021-03-14 10:37] LABS: Basophils # (A) 0.05 X 10*3/uL (0.00-0.10); Basophils % (A) 0.6 %; Eosinophils # (A) 0.44 X 10*3/uL (0.04-0.35); Eosinophils % (A) 5.3 %; HCT 42.4 % (39.6-50.0); HGB 13.9 g/dL (13.0-17.0); Lymphocytes # (A) 1.88 X 10*3/uL (0.90-5.00); Lymphocytes % (A) 22.6 %; MCH 30.5 pg (27.0-32.0); MCHC 32.8 g/dL (32.0-37.0); MCV 93.2 fL (80.0-97.0); Monocytes # (A) 0.92 X 10*3/uL (0.20-1.00); Monocytes % (A) 11.1 %; Neutrophils # (A) 4.98 X 10*3/uL (1.80-7.70); Neutrophils % (A) 59.9 %; Platelet Count 237 X 10*3/uL (140-440); RBC 4.55 X 10*6/uL (4.40-5.60); RDW 12.9 % (11.5-14.5); WBC 8.31 X 10*3/uL (4.50-10.00)
[2021-03-14 11:06] LABS: African American GFR (CKD) 64.4 (60.0-200.0); Anion Gap 8.5 mmol/L (4.00-12.00); BUN/Creat Ratio 10.83 Ratio (12.00-20.00); Calcium 8.8 mg/dL (8.7-10.3); Carbon Dioxide 24.5 mmol/L (21.6-31.8); Non-African American GFR(CKD) 55.6 (60.0-200.0)
[2021-03-14] MEDS ORDERED: LEVOFLOXACIN 250MG-D5W PMX 250 MG in DEXTROSE/WATER 1 50ML.BAG IVPB SCH (12:00)
--- NOTE | 2021-03-14 12:56 | P.PN ---
Progress Note - Text Progress Note Date: 03/14/21 The patient is seen on rounds. He was able to tolerate dinner, breakfast and lunch without difficulty. He's not having any pain. No further diarrhea. His abdomen soft and nontender Assessment: Enteritis/resolving Recommendation: Surgically stable for discharge. Follow up as needed
--- NOTE | 2021-03-14 13:10 | P.DS ---
Providers Date of admission: 03/12/21 11:50 Attending physician: Destiny Orlando Consults: 03/12/21 11:50 Consult Physician Urgent Consulting Provider: Alysia Maxwell Consult Reason/Comments: acute sbo Do you want consulting provider notified?: Yes Primary care physician: Clementine Arce MD Hospital Course: This is a pleasant 84-year-old gentleman, patient of Dr. Arce with recurrent history of bowel obstruction who is known to have history of asthma, CAD, hyperlipidemia, hypertension, and history of heart disease post angioplasty and stent placement in the past. Patient has had multiple missions for the same. He regularly follows with Dr. Maxwell. Patient complains of the pain, who recently was admitted January 2021, for same reasons. Patient has had dietary changes, for which she is on a low residue diet, however she had lots of corn, and nuts. Thereafter patient has complained of abdominal pain, left-sided, along with liquid stools. Patient denies any fever no chills, pain is out of 7 out of 10, started in the lower abdomen, now staying on the left lower quadrant area. In the emergency room, Laboratory studies are reviewed and demonstrate a creatinine of 1.29 which is higher than the patient's normal baseline. KUB demonstrates a nonspecific obstructive pattern. CT demonstrates acute enteritis which could be infectious, inflammatory or ischemic. It causes a mild or partial small bowel obstruction. Patient is placed nothing by mouth, with consultations surgery. 03/13, abdominal pain and lower quadrant area has improved, there is some residual left lower quadrant pain, no nausea no vomiting, patient has no fever no chills, we'll going to start on clear liquid diet today, and proceed cautiously. Follow-up x-rays today, no liquid stools this time, there is tenderness in the left lower quadrant, with guarding on exam. 03/14 patient's pain has resolved, diet as tolerated, has normal flap is normal bowel movements, patient's cleared by general surgery for discharge today. Patient will be discharged with Cipro Flagyl, for clinical diverticulitis, without any abscess. Follow up with PCP in one week, patient's to return to ER if worse. Low residue diet. FINAL DIAGNOSIS Plan: 1. Abdominal pain secondary to partial mechanical small bowel obstruction suspected diverticulitis abscess, without perforation, start IV Levaquin, and Flagyl, start clear liquid diet today, patient was made nothing by mouth earlier. Consult with general surgeon, she doesn't think that this is obstructive in nature, we will proceed cautiously.. morphine for pain, Zofran for nausea, continue IV fluids 0.9 normal saline at 75 mL per hour.. Clinical improve, discharge Cipro Flagyl, 7 day treatment 2. History of CAD post angioplasty and stent placement in the past patient has been on secondary prevention with metoprolol and simvastatin. Current Symptoms he follows with Dr. Benedict 3. Hypertension. Oral Lopressor 4. Hyperlipidemia. on simvastatin. 5. Seasonal ALLERGIES. Patient is normally on Zyrtec. 6. Mild intermittent asthma.onSingulair 10 mg at bedtime 7. History of hepatitis C: Not active at this point. 8. GI prophylaxis: Patient will be on pantoprazole. 9. DVT prophylaxis: Patient will be on heparin subcu CODE STATUS: Full code. Patient Condition at Discharge: Stable Plan - Discharge Summary Discharge Rx Participant: No New Discharge Prescriptions: New Ciprofloxacin HCl [Cipro] 500 mg PO BID 7 Days #14 tab metroNIDAZOLE [Flagyl] 500 mg PO TID #21 tab Continue Simvastatin [Zocor] 20 mg PO HS Omeprazole 40 mg PO DAILY Metoprolol Tartrate [Lopressor] 12.5 mg PO DAILY Vitamin B Complex 1 cap PO CLAUDIO Calcium Citrate/Vitamin D3 [Citracal + D Maximum Caplet] 1 tab PO DAILY Montelukast Sodium [Singulair] 10 mg PO HS Aspirin EC [Ecotrin Low Dose] 81 mg PO DAILY Docusate [Colace] 100 mg PO DAILY Loratadine [Claritin] 10 mg PO DAILY Discharge Medication List Simvastatin [Zocor] 20 mg PO HS 02/23/14 [History] Omeprazole 40 mg PO DAILY 02/14/19 [History] Calcium Citrate/Vitamin D3 [Citracal + D Maximum Caplet] 1 tab PO DAILY 02/23/20 [History] Metoprolol Tartrate [Lopressor] 12.5 mg PO DAILY 02/23/20 [History] Vitamin B Complex 1 cap PO CLAUDIO 02/23/20 [History] Montelukast Sodium [Singulair] 10 mg PO HS 03/15/20 [History] Aspirin EC [Ecotrin Low Dose] 81 mg PO DAILY 01/28/21 [History] Docusate [Colace] 100 mg PO DAILY 01/28/21 [History] Loratadine [Claritin] 10 mg PO DAILY 03/12/21 [History] Ciprofloxacin HCl [Cipro] 500 mg PO BID 7 Days #14 tab 03/14/21 [Rx] metroNIDAZOLE [Flagyl] 500 mg PO TID #21 tab 03/14/21 [Rx] Follow up Appointment(s)/Referral(s): Clementine Arce MD [Primary Care Provider] - 1-2 days Discharge Disposition: HOME SELF-CARE
== END 2021-03-14 14:14 | disposition home or self-care (01) | DRG 392 ==
LOC: EC 08:10 → 4SSUR 11:50
PROVIDERS: ADMIT Family Medicine; ATTEND Family Medicine
DX: K57.00 Diverticulitis of small intestine with perforation and abscess without bleeding (principal); K56.690 Other partial intestinal obstruction; I25.10 Atherosclerotic heart disease of native coronary artery without angina pectoris; I11.9 Hypertensive heart disease without heart failure; E78.5 Hyperlipidemia, unspecified; Z88.0 Allergy status to penicillin; Z88.8 Allergy status to other drugs, medicaments and biological substances; Z87.891 Personal history of nicotine dependence; K52.9 Noninfective gastroenteritis and colitis, unspecified; J45.20 Mild intermittent asthma, uncomplicated; Z86.19 Personal history of other infectious and parasitic diseases; Z95.5 Presence of coronary angioplasty implant and graft; Z79.82 Long term (current) use of aspirin; Z79.899 Other long term (current) drug therapy; Z96.1 Presence of intraocular lens; Z82.49 Family history of ischemic heart disease and other diseases of the circulatory system; Z80.1 Family history of malignant neoplasm of trachea, bronchus and lung; H91.90 Unspecified hearing loss, unspecified ear
CPT/HCPCS: 36415; 74018; 74177; 80048; 80053; 81001; 83605; 83690; 85025; 85610; 85730; 87324; 93005; 96360; 96361; 99285

== ENCOUNTER → 2021-04-08 | Outpatient (CLI) | payer MEDICARE ==
--- NOTE | 2021-04-08 09:02 | MM ---
Reason for exam: clinical finding. Last mammogram was performed 5 years and 2 months ago. Physical Findings: Nurse Summary: 2.5cm nodule in the left nipple (nurse dw). MG 3D Diag Mammo W/Cad LT CC and MLO view(s) were taken of the left breast. Prior study comparison: February 14, 2016, bilateral MG 3d diag mammo w/cad HOWARD. There are scattered fibroglandular densities. Flame shaped subareolar density progressed slightly from 2016. These results were verbally communicated with the patient and result sheet given to the patient on 04/08/21. ASSESSMENT: Incomplete: need additional imaging evaluation, BI-RAD 0 RECOMMENDATION: Ultrasound of the left breast. (as ordered)
--- NOTE | 2021-04-08 09:06 | USB ---
Reason for exam: additional evaluation requested from abnormal screening. US Breast LT Left complete breast ultrasound includes all four quadrants, the retroareolar region and axilla. Finding demonstrates a 13 x 7 x 14mm irregular, solid, hypoechoic lesion at posterior nipple at area of pain, compatible with subareolar benign gynecomastia and a 9mm oval, benign appearing lymph node at the axilla. These results were verbally communicated with the patient and result sheet given to the patient on 04/08/21. ASSESSMENT: Benign, BI-RAD 2 RECOMMENDATION: Clinical management of the left breast. Follow up as clincally indicated. Manage on a clinical basis with regard to benign painfule left gynecomastia.
== END | disposition home or self-care (01) ==
LOC: RADMAMWWP 07:47
PROVIDERS: ATTEND Internal Medicine
DX: N64.89 Other specified disorders of breast (principal)
CPT/HCPCS: 77065; 76641; G0279; 77061

== ENCOUNTER → 2021-05-29 | Outpatient (CLI) | payer MEDICARE, OTHER ==
[2021-05-29 15:10] LABS: Follicle Stimulating Hormone 18.1 mIU/mL; Luteinizing Hormone 12.6 mIU/mL; Prolactin 12.6 ng/mL (2.100-17.700)
== END | disposition home or self-care (01) ==
LOC: LABWHC1 07:32
PROVIDERS: ATTEND Internal Medicine
DX: N62 Hypertrophy of breast (principal)
CPT/HCPCS: 36415; 82040; 83001; 83002; 84146; 84270; 84402; 84403

== ENCOUNTER → 2021-07-17 | Outpatient (CLI) | payer MEDICARE, OTHER ==
--- NOTE | 2021-07-17 19:06 | US ---
EXAMINATION TYPE: US bladder DATE OF EXAM: 07/17/2021 COMPARISON: NONE CLINICAL HISTORY: 86-year-old male R10.9 N40.1 BPH with lower urinary tract symptoms. TECHNIQUE: Multiple sonographic images of the bladder are obtained. FINDINGS: Initial urine distended bladder shows no gross abnormality. Post Void Residual Volume: 52 mL Normal Post Void Residual (less than 50 mL) IMPRESSION: Urinary retention with postvoid bladder volume of 52 mL.
== END | disposition home or self-care (01) ==
LOC: RADUSWWP 13:46
PROVIDERS: ATTEND Internal Medicine
DX: R33.9 Retention of urine, unspecified (principal)
CPT/HCPCS: 76857

== ENCOUNTER → 2021-08-14 | Outpatient (CLI) | payer MEDICARE, OTHER ==
[2021-08-14 15:16] LABS: ALT 15 U/L (10-49); AST 20 U/L (14-35); Chol/HDL Ratio 4.91 Ratio; LDL Cholesterol,Calculated 119.1 mg/dL (0.0-131.0)
== END | disposition home or self-care (01) ==
LOC: LABWHC1 09:48
PROVIDERS: ATTEND Internal Medicine Interventional Cardiology
DX: E78.2 Mixed hyperlipidemia (principal)
CPT/HCPCS: 36415; 80061; 84450; 84460

== ENCOUNTER → 2021-11-14 | Outpatient (CLI) | payer MEDICARE, OTHER ==
[2021-11-14 10:06] VITALS: BP 131/80; PULSE 61; RESP 17; TEMP 97.9
--- NOTE | 2021-11-14 10:37 | P.GSHP ---
History of Present Illness H&P Date: 11/14/21 Benjy is an 86 year old white male seen in consultation for Dr. Rice regarding left breast and nipple pain. The patient had a mammogram on 04-08-21 of the left breast which showed findings consistent with gynecomastia. He also had an ultrasound done on 04-08-21 of that site which also appeared to be consistent with gynecomastia. The patient initially had tenderness at this site. He was started on a trial of tamoxifen which only lasted for several months. The pain however has stopped. He is having no symptoms related to this at the present time. He has no swelling in his right breast. note from Dr. 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 - Constitutional Constitutional: Denies chills, Denies fever - EENT Comment: wears glasses Eyes: left pain Ears: bilateral: decreased hearing, tinnitus Ears, nose, mouth and throat: Denies headache, Denies sore throat - Breasts Breasts: bilateral: as per HPI - Cardiovascular Cardiovascular: Denies chest pain, Denies shortness of breath - Respiratory Respiratory: Reports cough - Gastrointestinal Comment: bowel blockages in the past Gastrointestinal: Denies abdominal pain, Denies diarrhea, Denies nausea, Denies vomiting - Genitourinary (Male) Comment: no testicular masses or lumps Genitourinary: Denies dysuria, Denies hematuria - Musculoskeletal Comment: left arm and shoulder pain - Integumentary Integumentary: Reports rash - Neurological Neurological: Denies numbness, Denies weakness - Psychiatric Psychiatric: Denies anxiety, Denies depression - Endocrine Endocrine: Denies fatigue, Denies weight change - Hematologic/Lymphatic Comment: aspirin baby - Allergic/Immunologic Allergic/Immunologic: Reports seasonal allergies Past Medical History Past Medical History: Asthma, Coronary Artery Disease (CAD), Chest Pain / Angina, GERD/Reflux, GI Bleed, Hearing Disorder / Deafness, Hyperlipidemia, Hypertension, Liver Disease, Osteoarthritis (OA) Additional Past Medical History / Comment(s): Recurrent SBO d/t adhesions with conservative treatment and surgical treatment, mild leaky heart valve, bleeding ulcer/lower GI bleed many years ago with exsanguination and stayed in ICU/had transfusions then another less severe lower GI bleed a few years later, upper GI bleed, duodenal ulcer, hiatal hernia, hepatitis C d/t blood transfusion-2nd treatment successful, some recent short term memory issues/tremors in hands and balance issues past few months being worked up, constipation, diverticulitis and past pre cancerous polypectomies-last colonoscopy was normal in 2018, low back pain, L shoulder pain, 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 History of Any Multi-Drug Resistant Organisms: None Reported Past Surgical History: Bowel Resection, Cholecystectomy, Heart Catheterization With Stent, Orthopedic Surgery Additional Past Surgical History / Comment(s): 06/2018 PCI with stent, 1999 PCI with 2 stents, laparotomy with lysis of adhesions, R rotator cuff repair, R knee arthroscopy, R upper chest lipoma removed, bilateral cataract removals/lens implants, EGD and colonoscopies with pre cancerous polypectomies-last colonoscopy in 2018 was normal per pt. Past Anesthesia/Blood Transfusion Reactions: Blood Transfusion Reaction Additional Past Anesthesia/Blood Transfusion Reaction / Comment(s): CONTRACTED HEP C FROM A BLOOD TRANSFUSION 35-40 YEARS AGO. Date of Last Stent Placement:: JUN 2018 Past Psychological History: No Psychological Hx Reported Smoking Status: Former smoker Past Alcohol Use History: None Reported Past Drug Use History: None Reported - Past Family History Mother Family Medical History: Cancer Additional Family Medical History / Comment(s): Other at age 80 from acute kidney injury following surgery. Patient had bladder suspension surgery and she developed to have possibly uterine cancer however she ended up with renal failure refused hemodialysis Father Family Medical History: Cancer, Deep Vein Thrombosis (DVT), Pulmonary Embolus Additional Family Medical History / Comment(s): LUNG CANCER. Father in his mid 60s due to blood clots with history of bladder cancer . The cause of pulmonary embolism. Brother(s) Family Medical History: Cancer, Coronary Artery Disease (CAD) Additional Family Medical History / Comment(s): Patient has one brother with history of non-Hodgkin's lymphoma diagnosed 15 YEARS AGO. He does not have any sisters. He has adult children with no major medical problem basically 2 sons and a daughter. Medications and Allergies Home Medications Medication Instructions Recorded Confirmed Type Simvastatin [Zocor] 20 mg PO HS 02/23/14 11/14/21 History Omeprazole 40 mg PO DAILY 02/14/19 11/14/21 History Calcium Citrate/Vitamin D3 1 tab PO DAILY 02/23/20 11/14/21 History [Citracal + D Maximum Caplet] Metoprolol Tartrate [Lopressor] 12.5 mg PO DAILY 02/23/20 11/14/21 History Vitamin B Complex 1 cap PO CLAUDIO 02/23/20 11/14/21 History Montelukast Sodium [Singulair] 10 mg PO HS 03/15/20 11/14/21 History Aspirin EC [Ecotrin Low Dose] 81 mg PO DAILY 01/28/21 11/14/21 History Docusate [Colace] 100 mg PO DAILY 01/28/21 11/14/21 History Loratadine [Claritin] 10 mg PO DAILY 03/12/21 11/14/21 History Losartan Potassium 50 mg PO DAILY 11/14/21 11/14/21 History Allergies Allergy/AdvReac Type Severity Reaction Status Date / Time atenolol Allergy Syncope Verified 11/14/21 09:59 Penicillins Allergy Rash/Hives Verified 11/14/21 09:59 prednisone Allergy Rash/Hives Verified 11/14/21 09:59 Surgical - Exam BMI: 27.8 - General no distress - Eyes normal ocular movement - ENT wears a hearing aid - Neck trachea midline - Respiratory normal respiratory effort - Cardiovascular Rhythm: regular Heart Sounds: normal: S1, S2 - Abdomen ventral hernia Abdomen: soft - Genitourinary no testicular masses - Integumentary normal turgor - Neurologic no disoriented, no combative - Musculoskeletal normal gait - Psychiatric oriented to time, oriented to person, oriented to place, speech is normal, memory intact Breast Exam: insepection: no skin lesions of concern palpation: right breast: no masses or nodules of concern right axilla: No adenopathy of concern Left breast: Mild fullness under the nipple areolar complex no firm masses or nodules of concern Left axilla: No adenopathy of concern Results Personal review of mammogram and ultrasound done Assessment and Plan Assessment: Impression: probable left breast gynecomastia/asymptomatic Plan: Patient given the option of a biopsy, and has declined repeat mammogram and ultrasound in March to be sure it is not growing follow up after radiographic studies CC: Dr. Rice
== END ==
LOC: WWCWWP 09:55
PROVIDERS: ATTEND Surgery
DX: Z09 Encounter for follow-up examination after completed treatment for conditions other than malignant neoplasm (principal); E78.5 Hyperlipidemia, unspecified; I10 Essential (primary) hypertension; I25.10 Atherosclerotic heart disease of native coronary artery without angina pectoris; J45.909 Unspecified asthma, uncomplicated; M19.90 Unspecified osteoarthritis, unspecified site; Z87.891 Personal history of nicotine dependence; K21.9 Gastro-esophageal reflux disease without esophagitis; Z88.0 Allergy status to penicillin; Z79.82 Long term (current) use of aspirin

== ENCOUNTER 2022-02-01 19:03 | Inpatient (IN) | payer MEDICARE ==
--- NOTE | 2022-02-01 19:28 | ED ---
General Adult HPI - General Chief complaint: Neuro Symptoms/Deficit Stated complaint: trouble speaking, head pain Time Seen by Provider: 02/01/22 19:28 Source: patient Mode of arrival: ambulatory Limitations: no limitations - History of Present Illness Initial comments: Patient presents to the ED with his daughter for evaluation. Patient states that he developed mild dizziness and expressive aphasia about 2-2-1/2 hours ago. Patient also states that he developed pain along the left side of his neck and left posterior head at that time. Patient states that his symptoms have all now improved significantly, and he states that he is no longer aphasic. Patient states that he had difficulty finding his words once in the past as well. Patient denies trauma or injury, LOC, fever or chills, neck stiffness, focal numbness or weakness, visual changes, chest pain or pressure, dyspnea, cough or cold symptoms, palpitations, syncope, abdominal pain, nausea/vomiting/diarrhea, bloody or melanotic stool, dysuria or urinary symptoms, or any other symptoms or complaints. Code stroke was activated after my initial assessment of the patient in the ED. - Related Data Home Medications Medication Instructions Recorded Confirmed Simvastatin [Zocor] 20 mg PO HS 02/23/14 02/01/22 Omeprazole 40 mg PO DAILY 02/14/19 02/01/22 Calcium Citrate/Vitamin D3 1 tab PO DAILY 02/23/20 02/01/22 [Citracal + D Maximum Caplet] Metoprolol Tartrate [Lopressor] 12.5 mg PO BID 02/23/20 02/01/22 Vitamin B Complex 1 cap PO CLAUDIO 02/23/20 02/01/22 Montelukast Sodium [Singulair] 10 mg PO HS 03/15/20 02/01/22 Aspirin EC [Ecotrin Low Dose] 81 mg PO HS 01/28/21 02/01/22 Cyanocobalamin (Vitamin B-12) 1,000 mcg PO MOWEFR 02/01/22 02/01/22 [Vitamin B-12] Famotidine 20 mg PO BID PRN 02/01/22 02/01/22 amLODIPine [Norvasc] 5 mg PO DAILY 02/01/22 02/01/22 Allergies Allergy/AdvReac Type Severity Reaction Status Date / Time atenolol Allergy Syncope Verified 02/01/22 20:34 Penicillins Allergy Rash/Hives Verified 02/01/22 20:34 prednisone Allergy Rash/Hives Verified 02/01/22 20:34 Review of Systems ROS Statement: Those systems with pertinent positive or pertinent negative responses have been documented in the HPI. ROS Other: All systems not noted in ROS Statement are negative. Past Medical History Past Medical History: Asthma, Coronary Artery Disease (CAD), Chest Pain / Angina, GERD/Reflux, GI Bleed, Hearing Disorder / Deafness, Hyperlipidemia, Hypertension, Liver Disease, Osteoarthritis (OA) Additional Past Medical History / Comment(s): Recurrent SBO d/t adhesions with conservative treatment and surgical treatment, mild leaky heart valve, bleeding ulcer/lower GI bleed many years ago with exsanguination and stayed in ICU/had transfusions then another less severe lower GI bleed a few years later, upper GI bleed, duodenal ulcer, hiatal hernia, hepatitis C d/t blood transfusion-2nd treatment successful, some recent short term memory issues/tremors in hands and balance issues past few months being worked up, constipation, diverticulitis and past pre cancerous polypectomies-last colonoscopy was normal in 2018, low back pain, L shoulder pain, 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 History of Any Multi-Drug Resistant Organisms: None Reported Past Surgical History: Bowel Resection, Cholecystectomy, Heart Catheterization With Stent, Orthopedic Surgery Additional Past Surgical History / Comment(s): 06/2018 PCI with stent, 1999 PCI with 2 stents, laparotomy with lysis of adhesions, R rotator cuff repair, R knee arthroscopy, R upper chest lipoma removed, bilateral cataract removals/lens implants, EGD and colonoscopies with pre cancerous polypectomies-last colonoscopy in 2017 was normal per pt. Past Anesthesia/Blood Transfusion Reactions: Blood Transfusion Reaction Additional Past Anesthesia/Blood Transfusion Reaction / Comment(s): CONTRACTED HEP C FROM A BLOOD TRANSFUSION 35-40 YEARS AGO. Date of Last Stent Placement:: JUN 2018 Past Psychological History: No Psychological Hx Reported Smoking Status: Former smoker Past Alcohol Use History: None Reported Past Drug Use History: None Reported - Past Family History Mother Family Medical History: Cancer Additional Family Medical History / Comment(s): Other at age 80 from acute kidney injury following surgery. Patient had bladder suspension surgery and she developed to have possibly uterine cancer however she ended up with renal failure refused hemodialysis Father Family Medical History: Cancer, Deep Vein Thrombosis (DVT), Pulmonary Embolus Additional Family Medical History / Comment(s): LUNG CANCER. Father in his mid 60s due to blood clots with history of bladder cancer . The cause of pulmonary embolism. Brother(s) Family Medical History: Cancer, Coronary Artery Disease (CAD) Additional Family Medical History / Comment(s): Patient has one brother with history of non-Hodgkin's lymphoma diagnosed 15 YEARS AGO. He does not have any sisters. He has adult children with no major medical problem basically 2 sons and a daughter. General Exam Limitations: no limitations General appearance: alert, in no apparent distress Head exam: Present: atraumatic, normocephalic Eye exam: Present: normal appearance, PERRL, EOMI ENT exam: Present: mucous membranes moist, TM's normal bilaterally Neck exam: Present: other (Trachea is in midline). Absent: tenderness, meningismus Respiratory exam: Present: normal lung sounds bilaterally. Absent: respiratory distress, wheezes, rales, rhonchi, stridor Cardiovascular Exam: Present: regular rate, normal rhythm, normal heart sounds, other (Normal radial pulses bilaterally) GI/Abdominal exam: Present: soft. Absent: distended, tenderness, guarding Extremities exam: Present: full ROM. Absent: tenderness, pedal edema, calf tenderness Neurological exam: Present: alert, oriented X3, CN II-XII intact, other (NIH stroke scale score = 0). Absent: motor sensory deficit Psychiatric exam: Present: normal affect, normal mood Skin exam: Present: warm, dry, intact, normal color Course Vital Signs 02/01/22 02/01/22 19:05 19:33 Temperature 98 F Pulse Rate 84 82 Respiratory 20 16 Rate Blood Pressure 95/69 149/82 O2 Sat by Pulse 96 94 L Oximetry - Reevaluation(s) Reevaluation #1: 02/01/22 19:59 Case, H&P and pending ED workup were discussed with Dr. Saravia (neur ointerventionalist). He has no further recommendations at this time. 02/01/22 20:37 Case, H&P, test results and ED management were discussed with Dr. Rice. He accepts hospital admission. He agrees with neurology consultation. He has no further recommendations at this time. 02/01/22 20:40 Patient denies development of any new symptoms while in the ED. Patient continues to have a NIH stroke scale score of 0. Patient and daughter are aware of the patient's test results and my discussions as above. Patient agrees with hospital admission at this time. EKG Findings - EKG Comments: EKG Findings:: Sinus rhythm with first-degree AV block, a single premature ectopic complex, leftward axis, ventricular rate of 72 bpm, [place] interval of 219 ms, normal QRS duration, normal QT interval, no ST or T-wave abnormality Medical Decision Making - Medical Decision Making Given the patient's reported symptoms, I suspect TIA. Patient's symptoms have resolved since coming to the ED. Patient's CT imaging studies are negative. Will admit the patient to the hospital for TIA/CVA workup. Patient was given a dose of aspirin in the ED. Dr. Rice has accepted hospital admission. - Lab Data Result diagrams: 02/01/22 19:25 02/01/22 19:25 Lab Results 02/01/22 02/01/22 02/01/22 Range/Units 19:25 19:25 19:25 WBC 9.6 (3.8-10.6) k/uL RBC 4.72 (4.30-5.90) m/uL Hgb 15.5 (13.0-17.5) gm/dL Hct 44.8 (39.0-53.0) % MCV 95.0 (80.0-100.0) fL MCH 32.8 (25.0-35.0) pg MCHC 34.5 (31.0-37.0) g/dL RDW 12.7 (11.5-15.5) % Plt Count 178 (150-450) k/uL MPV 7.3 Neutrophils % 56 % Lymphocytes % 25 % Monocytes % 10 % Eosinophils % 5 % Basophils % 1 % Neutrophils # 5.3 (1.3-7.7) k/uL Lymphocytes # 2.4 (1.0-4.8) k/uL Monocytes # 1.0 (0-1.0) k/uL Eosinophils # 0.5 (0-0.7) k/uL Basophils # 0.1 (0-0.2) k/uL PT 10.4 (9.0-12.0) sec INR 0.9 (<1.2) APTT 22.2 (22.0-30.0) sec Sodium 136 L (137-145) mmol/L Potassium 3.8 (3.5-5.1) mmol/L Chloride 105 (98-107) mmol/L Carbon Dioxide 24 (22-30) mmol/L Anion Gap 7 mmol/L BUN 18 (9-20) mg/dL Creatinine 1.28 H (0.66-1.25) mg/dL Est GFR (CKD-EPI)AfAm 59 (>60 ml/min/1.73 sqM) Est GFR (CKD-EPI)NonAf 51 (>60 ml/min/1.73 sqM) Glucose 123 H (74-99) mg/dL Calcium 8.9 (8.4-10.2) mg/dL Total Bilirubin 0.2 (0.2-1.3) mg/dL AST 29 (17-59) U/L ALT 24 (4-49) U/L Alkaline Phosphatase 82 (38-126) U/L Troponin I (0.000-0.034) ng/mL Total Protein 6.6 (6.3-8.2) g/dL Albumin 4.0 (3.5-5.0) g/dL 02/01/22 Range/Units 19:25 WBC (3.8-10.6) k/uL RBC (4.30-5.90) m/uL Hgb (13.0-17.5) gm/dL Hct (39.0-53.0) % MCV (80.0-100.0) fL MCH (25.0-35.0) pg MCHC (31.0-37.0) g/dL RDW (11.5-15.5) % Plt Count (150-450) k/uL MPV Neutrophils % % Lymphocytes % % Monocytes % % Eosinophils % % Basophils % % Neutrophils # (1.3-7.7) k/uL Lymphocytes # (1.0-4.8) k/uL Monocytes # (0-1.0) k/uL Eosinophils # (0-0.7) k/uL Basophils # (0-0.2) k/uL PT (9.0-12.0) sec INR (<1.2) APTT (22.0-30.0) sec Sodium (137-145) mmol/L Potassium (3.5-5.1) mmol/L Chloride (98-107) mmol/L Carbon Dioxide (22-30) mmol/L Anion Gap mmol/L BUN (9-20) mg/dL Creatinine (0.66-1.25) mg/dL Est GFR (CKD-EPI)AfAm (>60 ml/min/1.73 sqM) Est GFR (CKD-EPI)NonAf (>60 ml/min/1.73 sqM) Glucose (74-99) mg/dL Calcium (8.4-10.2) mg/dL Total Bilirubin (0.2-1.3) mg/dL AST (17-59) U/L ALT (4-49) U/L Alkaline Phosphatase (38-126) U/L Troponin I <0.012 (0.000-0.034) ng/mL Total Protein (6.3-8.2) g/dL Albumin (3.5-5.0) g/dL - Radiology Data Chest x-ray: No active cardiopulmonary disease. No change. Noncontrast head CT: Mild atrophy. No acute intracranial abnormality. No change. CT angiogram head/neck with IV contrast: Negative CT angiogram of the neck. Negative CT angiogram of the brain. Disposition Clinical Impression: Dizziness Narrative: Transient expressive aphasia; suspected TIA Disposition: ADMITTED IP TO THIS HOSP Condition: Stable Is patient prescribed a controlled substance at d/c from ED?: No Referrals: Steven Rice MD [Primary Care Provider] - 1-2 days Time of Disposition: 20:39
[2022-02-01 20:00] LABS: INR 0.9 (<1.2); Partial Thromboplastin Time 22.2 sec (22.0-30.0); Prothrombin Time 10.4 sec (9.0-12.0)
--- NOTE | 2022-02-01 20:00 | CT ---
EXAMINATION TYPE: CT brain wo con for TPA DATE OF EXAM: 02/01/2022 COMPARISON: 02/23/2020 HISTORY: Neuro deficits. CT DLP: 1104.6 mGycm Automated exposure control for dose reduction was used. There is cerebral cortical atrophy. There is no mass effect or midline shift. No sign of intracranial hemorrhage. The calvarium is intact there is normal aeration of the mastoid sinuses. IMPRESSION: Mild atrophy. No acute intracranial abnormality. No change.
[2022-02-01 20:04] LABS: Basophils # (A) 0.1 k/uL (0-0.2); Basophils % (A) 1 %; Eosinophils # (A) 0.5 k/uL (0-0.7); Eosinophils % (A) 5 %; HCT 44.8 % (39.0-53.0); HGB 15.5 gm/dL (13.0-17.5); Lymphocytes # (A) 2.4 k/uL (1.0-4.8); Lymphocytes % (A) 25 %; MCH 32.8 pg (25.0-35.0); MCHC 34.5 g/dL (31.0-37.0); Mean Platelet Volume 7.3; Monocytes % (A) 10 %; Neutrophils # (A) 5.3 k/uL (1.3-7.7); Neutrophils % (A) 56 %; Platelet Count 178 k/uL (150-450); RBC 4.72 m/uL (4.30-5.90); RDW 12.7 % (11.5-15.5); WBC 9.6 k/uL (3.8-10.6)
[2022-02-01 20:15] LABS: Calcium 8.9 mg/dL (8.4-10.2); Potassium 3.8 mmol/L (3.5-5.1); Total Bilirubin 0.2 mg/dL (0.2-1.3); Total Protein 6.6 g/dL (6.3-8.2)
--- NOTE | 2022-02-01 20:19 | CT ---
EXAMINATION TYPE: CT angio head neck DATE OF EXAM: 02/01/2022 COMPARISON: None HISTORY: Neuro deficits. CT DLP: 526.7 mGycm Automated exposure control for dose reduction was used. CONTRAST: Performed with IV Contrast, patient injected with 65ml mL of Isovue 370. Images obtained from the aortic arch to the vertex of the brain with IV contrast. There is 3-D postpr ocessed images. There is normal branching pattern of the great vessels on the aortic arch. There is bilateral arteria l flow in the subclavian arteries. There is arterial flow in the common internal and external carotid arteries bilaterally. There is arterial flow in both vertebral arteries. There is arterial flow in t he vertebral basilar artery system. There is no evidence of carotid or vertebral artery aneurysm or d issection. There is fairly wide patency of the carotid artery bifurcations. No evidence of any signif icant plaque formation. There is arterial flow in the anterior middle and posterior cerebral arteries bilaterally. No mass ef fect. No evidence of intracranial aneurysm or neovascularity. No evidence of hemodynamic stenosis. Th ere is normal enhancement of the venous sinuses. IMPRESSION: Negative CT angiogram of the neck. Negative CT angiogram of the brain.
[2022-02-01] MEDS ORDERED: ASPIRIN 81 MG PO STA (20:25)
--- NOTE | 2022-02-01 20:32 | XR ---
EXAMINATION TYPE: XR chest 2V DATE OF EXAM: 02/01/2022 COMPARISON: 10/27/2020 HISTORY: Altered mental status TECHNIQUE: FINDINGS: Heart and mediastinum are normal. Lungs are clear of infiltrate. No heart failure. There ar e chest leads. Thoracic aorta is atheromatous. IMPRESSION: No active cardiopulmonary disease. No change.
[2022-02-01] MEDS ORDERED: BENZOCAINE/MENTHOL LOZENG 1 EACH LOZENGE MUCOUS MEM STA (20:43)
[2022-02-02] MEDS ORDERED: FAMOTIDINE 20 MG TAB PO PRN (07:57)
[2022-02-02] MEDS: METOPROLOL TARTRATE 12.5 MG TAB PO SCH ×2 (08:44→20:38)
[2022-02-02] MEDS: amLODIPine 5 MG TAB PO SCH (08:44)
[2022-02-02] MEDS: PANTOPRAZOLE 40 MG TABLET PO SCH (08:44)
[2022-02-02 09:28] LABS: Chol/HDL Ratio 3.39 Ratio; LDL Cholesterol,Calculated 87.9 mg/dL (0.0-131.0)
--- NOTE | 2022-02-02 09:57 | P.HPIM ---
History of Present Illness H&P Date: 02/02/22 HISTORY OF PRESENT ILLNESS: 86-year-old male patient with recurrent history of bowel obstruction who is known to have history of asthma, CAD, hyperlipidemia, hypertension, and history of heart disease post angioplasty and stent placement in the past. He gives history that yesterday he was working in the barn with his daughter around 5:00 but was not doing anything strenuous at the time. He developed difficulty finding words and was saying the wrong words. His daughter drove him into the hospital for evaluation. He states the symptoms resolved last evening. He states he had a little left hand numbness. No weakness of the upper or lower extremities. He also gives history that he was in the office about 2 weeks ago and saw [facility] for earache, sore throat and sore neck. He was diagnosed with a sinus infection and placed on a Medrol Dosepak and anabiotic's. He states he was doing much better until this last week the sore throat and sore neck returned. Patient also states that he received Covid booster 5 [place]ater[place] 07/03/2021 and after that was and unable to speak for 20-30 minutes and resolved on its own. Patient presented to [facility] emergency center for evaluation. He was found to be afebrile, heart rate 84, blood pressure 95/69 with repeat of 149/82, pulse ox 96% on room air. CBC was within normal limits. Sodium 136. Creatinine 1.28, blood sugar 123. Troponin negative on one drop. Liver function tests normal. CT of the brain revealed mild atrophy. No acute intracranial abnormality. Chest x-ray shows no acute cardiopulmonary disease. CTA of the head and neck normal. Patient was placed on the observation unit, neuro checks, consult with neurology. REVIEW OF SYSTEMS: Constitutional: No fever, no chills, no night sweats. No weight change. No weakness, fatigue or lethargy. No daytime sleepiness. EENT: No headache. No blurred vision or double vision, no loss of vision. No loss of Hearing, no ringing in the ears, no dizziness. No nasal drainage or congestion. No epistaxis. No sore throat. Lungs: No shortness of breath, cough, no sputum production. No wheezing. Cardiovascular: No chest pain, no lower extremity edema. No palpitations. No paroxysmal nocturnal dyspnea. No orthopnea. No lightheadedness or dizziness. No syncopal episodes. Abdominal: Slight abdominal pain with distention with nausea and one episode vomiting. No diarrhea. No constipation. No bloody or tarry stools.. No loss of appetite. Genitourinary: No dysuria, increased frequency, urgency. No urinary retention. Musculoskeletal: No myalgias. No muscle weakness, no gait dysfunction, no frequent falls. No back pain. No neck pain. Integumentary: No wounds, no lesions. No rash or pruritus. No unusual bruising. No change in hair or nails. Neurologic: No aphasia. Difficulty with word finding resolved. Numbness in the left hand, resolved. No facial droop. No change in mentation. No head injury. No headache. No paralysis. No paresthesia. Psychiatric: No depression. No anxiety. No mood swings. Endocrine: No abnormal blood sugars. No weight change. No excessive sweating or thirst. No cold intolerance. SOCIAL HISTORY: He quit smoking years ago was smoker for few years, no alcohol abuse, does not use any BiPAP or 02 at home. FAMILY HISTORY: His mother in her 80s from possible uterine cancer pulmonary embolism, father dying in his 60s from blood clot with the management of bladder cancer. Patient had 1 brother with history of non-Hodgkin lymphoma he does not have any sister patient has 3 children with no major medical problem. PHYSICAL EXAMINATION: Gen: This is a 86-year-old gentleman, resting in bed and appears to be comfortable and in no acute distress. HEENT: Head is atraumatic, normocephalic. Pupils equal, round. Sclerae is anicteric. EOM intact. Oral mucous membranes are moist. Oral pharynx without redness and erythema. NECK: Supple. No JVD. No lymphadenopathy. No thyromegaly. LUNGS: Clear to auscultation. No wheezes or rhonchi. No intercostal ret ractions. HEART: Regular rate and rhythm. No murmur. ABDOMEN: Soft. Bowel sounds are present, no abdominal tenderness. EXTREMITIES: No pedal edema. No calf tenderness. Dorsalis pedis +2 bilaterall y. NEUROLOGICAL: Patient is awake, alert and oriented x3. Cranial nerves 2 through 12 are grossly intact. Strength 5/5 upper and lower extremities bilaterally. ASSESSMENT AND PLAN: TIA with transit expressive aphasia. All studies have been negative thus far. Consult with neurology, PT, OT, speech therapy evaluations. Recent treatment for sinus infection. History of partial small bowel obstruction with previous admissions in 2020. Patient states that he is on a low fiber diet in chopped meats which has helped. History of CAD post angioplasty and stent placement in the past patient has been on secondary prevention with metoprolol and simvastatin. Hypertension. Continue amlodipine 5 mg daily, Lopressor 12.5 mg twice daily. Hyperlipidemia. Continue simvastatin. Seasonal ALLERGIES. Mild intermittent asthma. Continue Singulair 10 mg at bedtime History of hepatitis C: Not active at this point. Gastroesophageal reflux disease and GI prophylaxis: Patient will be on pantoprazole. DVT prophylaxis. Increase activity. CODE STATUS: Full code. Patient places in observation status. DISCHARGE PLAN Home Impression and plan of care have been directed as dictated by the signing physician. Susi Cardona nurse practitioner acting as scribe for signing physician. Past Medical History Past Medical History: Asthma, Coronary Artery Disease (CAD), Chest Pain / Angina, GERD/Reflux, GI Bleed, Hearing Disorder / Deafness, Hyperlipidemia, Hypertension, Liver Disease, Osteoarthritis (OA) Additional Past Medical History / Comment(s): Recurrent SBO d/t adhesions with conservative treatment and surgical treatment, mild leaky heart valve, bleeding ulcer/lower GI bleed many years ago with exsanguination and stayed in ICU/had transfusions then another less severe lower GI bleed a few years later, upper GI bleed, duodenal ulcer, hiatal hernia, hepatitis C d/t blood transfusion-2nd treatment successful, some recent short term memory issues/tremors in hands and balance issues past few months being worked up, constipation, diverticulitis and past pre cancerous polypectomies-last colonoscopy was normal in 2018, low back pain, L shoulder pain, 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 History of Any Multi-Drug Resistant Organisms: None Reported Past Surgical History: Bowel Resection, Cholecystectomy, Heart Catheterization With Stent, Orthopedic Surgery Additional Past Surgical History / Comment(s): 06/2018 PCI with stent, 1999 PCI with 2 stents, laparotomy with lysis of adhesions, R rotator cuff repair, R knee arthroscopy, R upper chest lipoma removed, bilateral cataract removals/lens implants, EGD and colonoscopies with pre cancerous polypectomies-last colonoscopy in 2018 was normal per pt. Past Anesthesia/Blood Transfusion Reactions: Blood Transfusion Reaction Additional Past Anesthesia/Blood Transfusion Reaction / Comment(s): CONTRACTED HEP C FROM A BLOOD TRANSFUSION 35-40 YEARS AGO. Date of Last Stent Placement:: JUN 2018 Past Psychological History: No Psychological Hx Reported Additional Psychological History / Comment(s): Pt resides with his spouse. Smoking Status: Former smoker Past Alcohol Use History: None Reported Additional Past Alcohol Use History / Comment(s): Patient was a smoker from [id number]. He drinks a glass of wine on special occasions. Past Drug Use History: None Reported - Past Family History Mother Family Medical History: Cancer Additional Family Medical History / Comment(s): Other at age 80 from acute kidney injury following surgery. Patient had bladder suspension surgery and she developed to have possibly uterine cancer however she ended up with renal failure refused hemodialysis Father Family Medical History: Cancer, Deep Vein Thrombosis (DVT), Pulmonary Embolus Additional Family Medical History / Comment(s): LUNG CANCER. Father in his mid 60s due to blood clots with history of bladder cancer . The cause of pulmonary embolism. Brother(s) Family Medical History: Cancer, Coronary Artery Disease (CAD) Additional Family Medical History / Comment(s): Patient has one brother with history of non-Hodgkin's lymphoma diagnosed 15 YEARS AGO. He does not have any sisters. He has adult children with no major medical problem basically 2 sons and a daughter. Medications and Allergies Home Medications Medication Instructions Recorded Confirmed Type Simvastatin [Zocor] 20 mg PO HS 02/23/14 02/01/22 History Omeprazole 40 mg PO DAILY 02/14/19 02/01/22 History Calcium Citrate/Vitamin D3 1 tab PO DAILY 02/23/20 02/01/22 History [Citracal + D Maximum Caplet] Metoprolol Tartrate [Lopressor] 12.5 mg PO BID 02/23/20 02/01/22 History Vitamin B Complex 1 cap PO CLAUDIO 02/23/20 02/01/22 History Montelukast Sodium [Singulair] 10 mg PO HS 03/15/20 02/01/22 History Aspirin EC [Ecotrin Low Dose] 81 mg PO HS 01/28/21 02/01/22 History Cyanocobalamin (Vitamin B-12) 1,000 mcg PO MOWEFR 02/01/22 02/01/22 History [Vitamin B-12] Famotidine 20 mg PO BID PRN 02/01/22 02/01/22 History Tamsulosin [Flomax] 0.4 mg PO HS 02/01/22 02/01/22 History amLODIPine [Norvasc] 5 mg PO DAILY 02/01/22 02/01/22 History Allergies Allergy/AdvReac Type Severity Reaction Status Date / Time atenolol Allergy Syncope Verified 02/01/22 20:34 Penicillins Allergy Rash/Hives Verified 02/01/22 20:34 prednisone Allergy Rash/Hives Verified 02/01/22 20:34 Physical Exam Vitals: Vital Signs Temp Pulse Pulse Resp BP BP BP 02/02/22 07:00 98.1 F 55 L 17 129/77 02/02/22 02:13 98.1 F 95 18 134/83 02/02/22 02:00 64 18 02/01/22 21:56 98.2 F 64 18 138/75 02/01/22 20:40 72 16 148/89 02/01/22 19:33 82 16 149/82 02/01/22 19:05 98 F 84 20 95/69 Pulse Ox 02/02/22 07:00 95 02/02/22 02:13 94 L 02/02/22 02:00 02/01/22 21:56 96 02/01/22 20:40 94 L 02/01/22 19:33 94 L 02/01/22 19:05 96 Intake and Output 02/01/22 02/02/22 02/02/22 22:59 06:59 14:59 Intake Total 250 250 Output Total 500 Balance 250 250 -500 Intake: Oral 250 250 Output: Urine 500 Other: Voiding Method Toilet Weight 72.575 kg Results CBC & Chem 7: 02/01/22 19:25 02/01/22 19:25 Labs: Abnormal Lab Results - Last 24 Hours (Table) 02/01/22 Range/Units 19:25 Sodium 136 L (137-145) mmol/L Creatinine 1.28 H (0.66-1.25) mg/dL Glucose 123 H (74-99) mg/dL Thrombosis Risk Factor Assmnt - Choose All That Apply Any of the Below Risk Factors Present?: No Each Risk Factor Represents 3 Points: Age 75 years or older Thrombosis Risk Factor Assessment Total Risk Factor Score: 3 Thrombosis Risk Factor Assessment Level: Moderate Risk
--- NOTE | 2022-02-02 17:53 | P.CNNES ---
History of Present Illness Consult date: 02/02/22 Requesting physician: Everardo Bowers Reason for Consult: TIA History of Present Illness: Patient is a 86-year-old right-handed male came to the hospital on 02/01/2022 at 7:03 PM, after patient had a possible TIA. Patient states that on Wednesday, at 42 5 PM, he was working with his daughter out in the barn. She was mainly working, and he was giving her the tools. She notices that he was stuttering, slurring and not saying some words. He couldn't say word "[place]", instead came up with some other city. She asked him what he ate for lunch, he was only able to tell a sandwich, could not tell the word "[place] sandwich" she got worried so brought him to the hospital. There was no slurred speech, but he was not pronouncing well. He denies any facial droop, focal weakness, numbness tingling or visual issues. He did notice some pain behind his left ear and neck. He states that about 2 weeks ago he was treated for sinus infection, ear pain and throat pain with steroid burst and taper does and a course of antibiotic. Patient states that last time he was given some bruising and is in his pain is better. Patient says that his symptoms mostly lasted for about 2-3 hours and then completely went away. At present he has no pain, no speech difficulty. Patient's vitals on arrival blood pressure 95/69, which improved to 149/82, pulse rate 84 temperature 98.0. Patient's blood test shows normal CBC, PT/PTT, sodium 136 potassium 3.8, BUN 18 creatinine 1.28. Hepatic panel is normal troponin negative. CT head showed mild atrophy, no acute intracranial abnormality. On my review there is evidence of a small hyperdensity involving the left external capsule, which raises concerning for a small petechial intracranial hemorrhage. This hyperdensity was not present in the computed tomography scan from 02/23/2020. Chest x-ray showed no acute cardiopulmonary disease. EKG showed sinus rhythm with first-degree AV block. Ectopic premature complexes. Patient's blood test shows normal CBC, PT/PTT, sodium 136 potassium 3.8, normal BUN, creatinine 1.28. Hepatic panel is normal. Patient's previous B12 was borderline to 78, B6 10, Stroke code was activated in the ER, and patient's NIH stroke scale was 0. All his symptoms have resolved while he was in the ED. He was considered not a can didate for TPA. Patient states that in June 2021 he had an episode he couldn't speak at all, making odd sounds. It lasted for about 15-20 minutes, and occurred about an hour after receiving the booster shot for Covid. He did not seek medical attention but did inform his primary physician about it afterwards. Patient takes vitamin B12 1000 g by mouth Wednesday, Flomax, Pepcid 20 mg twice a day, aspirin 81 mg, vitamin B complex, metoprolol, omeprazole and simvastatin 20 mg. He says that he does take aspirin every day for last few years. Patient states that his on 10/27/2021 from massive brain bleed. He denies any recent falls, although admits to having stumbling problem for last 2 years. 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 He contributes partly due to the low back pain. Review of Systems As above in detail. All other 14 points of uses a [place], unremarkable. Patient does have balance problem. He has not had any fall in this year. Past Medical History Past Medical History: Asthma, Coronary Artery Disease (CAD), Chest Pain / Angina, GERD/Reflux, GI Bleed, Hearing Disorder / Deafness, Hyperlipidemia, Hypertension, Liver Disease, Osteoarthritis (OA) Additional Past Medical History / Comment(s): Recurrent SBO d/t adhesions with conservative treatment and surgical treatment, mild leaky heart valve, bleeding ulcer/lower GI bleed many years ago with exsanguination and stayed in ICU/had transfusions then another less severe lower GI bleed a few years later, upper GI bleed, duodenal ulcer, hiatal hernia, hepatitis C d/t blood transfusion-2nd treatment successful, some recent short term memory issues/tremors in hands and balance issues past few months being worked up, constipation, diverticulitis and past pre cancerous polypectomies-last colonoscopy was normal in 2018, low back pain, L shoulder pain, 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 History of Any Multi-Drug Resistant Organisms: None Reported Past Surgical History: Bowel Resection, Cholecystectomy, Heart Catheterization With Stent, Orthopedic Surgery Additional Past Surgical History / Comment(s): 06/2018 PCI with stent, 1999 PCI with 2 stents, laparotomy with lysis of adhesions, R rotator cuff repair, R knee arthroscopy, R upper chest lipoma removed, bilateral cataract removals/lens implants, EGD and colonoscopies with pre cancerous polypectomies-last colonoscopy in 2017 was normal per pt. Past Anesthesia/Blood Transfusion Reactions: Blood Transfusion Reaction Additional Past Anesthesia/Blood Transfusion Reaction / Comment(s): CONTRACTED HEP C FROM A BLOOD TRANSFUSION 35-40 YEARS AGO. Date of Last Stent Placement:: JUN 2018 Past Psychological History: No Psychological Hx Reported Additional Psychological History / Comment(s): Pt resides with his spouse. Smoking Status: Former smoker Past Alcohol Use History: None Reported Additional Past Alcohol Use History / Comment(s): Patient was a smoker from [id number]. He drinks a glass of wine on special occasions. Past Drug Use History: None Reported - Past Family History Mother Family Medical History: Cancer Additional Family Medical History / Comment(s): Other at age 80 from acute kidney injury following surgery. Patient had bladder suspension surgery and she developed to have possibly uterine cancer however she ended up with renal failure refused hemodialysis Father Family Medical History: Cancer, Deep Vein Thrombosis (DVT), Pulmonary Embolus Additional Family Medical History / Comment(s): LUNG CANCER. Father in his mid 60s due to blood clots with history of bladder cancer . The cause of pulmonary embolism. Brother(s) Family Medical History: Cancer, Coronary Artery Disease (CAD) Additional Family Medical History / Comment(s): Patient has one brother with history of non-Hodgkin's lymphoma diagnosed 15 YEARS AGO. He does not have any sisters. He has adult children with no major medical problem basically 2 sons and a daughter. Medications and Allergies Home Medications Medication Instructions Recorded Confirmed Type Simvastatin [Zocor] 20 mg PO HS 02/23/14 02/01/22 History Omeprazole 40 mg PO DAILY 02/14/19 02/01/22 History Calcium Citrate/Vitamin D3 1 tab PO DAILY 02/23/20 02/01/22 History [Citracal + D Maximum Caplet] Metoprolol Tartrate [Lopressor] 12.5 mg PO BID 02/23/20 02/01/22 History Vitamin B Complex 1 cap PO CLAUDIO 02/23/20 02/01/22 History Montelukast Sodium [Singulair] 10 mg PO HS 03/15/20 02/01/22 History Aspirin EC [Ecotrin Low Dose] 81 mg PO HS 01/28/21 02/01/22 History Cyanocobalamin (Vitamin B-12) 1,000 mcg PO MOWEFR 02/01/22 02/01/22 History [Vitamin B-12] Famotidine 20 mg PO BID PRN 02/01/22 02/01/22 History Tamsulosin [Flomax] 0.4 mg PO HS 02/01/22 02/01/22 History amLODIPine [Norvasc] 5 mg PO DAILY 02/01/22 02/01/22 History Allergies Allergy/AdvReac Type Severity Reaction Status Date / Time atenolol Allergy Syncope Verified 02/01/22 20:34 Penicillins Allergy Rash/Hives Verified 02/01/22 20:34 prednisone Allergy Rash/Hives Verified 02/01/22 20:34 Physical Examination - Vital Signs Vital Signs: Vital Signs Temp Pulse Pulse Resp BP BP BP 02/02/22 08:08 02/02/22 07:00 98.1 F 55 L 17 129/77 02/02/22 02:13 98.1 F 95 18 134/83 02/02/22 02:00 64 18 02/01/22 21:56 98.2 F 64 18 138/75 02/01/22 20:40 72 16 148/89 02/01/22 19:33 82 16 149/82 02/01/22 19:05 98 F 84 20 95/69 Pulse Ox 02/02/22 08:08 95 02/02/22 07:00 95 02/02/22 02:13 94 L 02/02/22 02:00 02/01/22 21:56 96 02/01/22 20:40 94 L 02/01/22 19:33 94 L 02/01/22 19:05 96 Intake and Output 02/01/22 02/02/22 02/02/22 22:59 06:59 14:59 Intake Total 250 250 Output Total 500 Balance 250 250 -500 Intake: Oral 250 250 Output: Urine 500 Other: Voiding Method Toilet Toilet Urinal Weight 72.575 kg Patient is an elderly male, in no acute distress. Patient is alert awake oriented to time place and person. Speech and language functions are normal. Attention, concentration and fund of knowledge is adequate. Patient can name and repeat very well. On cranial examination, pupils are round and reacting to light, visual zimmerman are full on confrontation, with no neglect on double simultaneous stimulation; extraocular muscles are intact with no nystagmus. Face is symmetric, tongue protrudes to the midline. Palatal elevation and sensation normal, hearing and shoulder shrug normal, facial sensation normal. Shoulder shrug normal. On muscle strength testing, there is no pronator drift and the strength is normal in arms and legs distally and proximally. Deep tendon reflexes are (right/left biceps 1+/1, brachioradialis 2+/1+, knees 2+3/2+3 ankle 1/1 and plantars downgoing bilaterally. Sensory to touch is equal with no neglect. Cerebellar function showed no ataxia for [id number] testing. No dysdiadochokinesia. Tone and bulk of muscles normal. Gait patient walks with slight stoop. His balance is not the best, but no significant issues. Did not use any device. On general examination, there is no carotid bruit or murmur, S1-S2 audible. Abdomen is soft nontender. No organomegaly, bowel sounds present. Chest is clear. Peripheral pulses are present. There is very mild peripheral edema. Results - Laboratory Findings CBC and BMP: 02/01/22 19:25 02/01/22 19:25 Abnormal Lab Findings: Abnormal Labs 02/01/22 19:25 Sodium 136 L Creatinine 1.28 H Glucose 123 H Assessment and Plan Assessment: * Probable TIA manifesting with transient slurred speech, that resolved in 2-3 hours. Patient's current neurological examination is normal, with NIH stroke scale 0. * CT head revealed questionable hyperdensity involving the left external capsule, rule out small intracranial hemorrhage. Rule out TIA. * Hypertension * Hyperlipidemia * History of GI bleed * Gait imbalance, rule out B12 deficiency. * CAD Plan: * Patient will undergo repeat CT head rule out intracranial hemorrhage versus resolution of ?ICH. * MRI of the brain rule out CVA. * Lipid panel with cholesterol 159, LDL 87.9, HDL 46 triglycerides 121. * CTA of the neck and CTA of the head reported as "negative". * We will review CT head with the radiologist. * Patient has gait imbalance for 2 years. Patient's last B12 was borderline 278 on 01/24/2020. We will recheck B12, folate, MMA, B6. Also check Hemoglobin A1c * Continue aspirin 81 mg daily for now.
--- NOTE | 2022-02-02 18:48 | CT ---
EXAMINATION TYPE: CT brain wo con CT DLP: 995.5 mGycm, Automated exposure control for dose reduction was used. DATE OF EXAM: 02/02/2022 5:21 PM COMPARISON: 02/01/2022. CLINICAL INDICATION:Male, 86 years old with history of Possible small left external capsule bleed? F/ u, f/u cva TECHNIQUE: Brain: Multiple axial CT images of the brain were obtained without IV contrast. FINDINGS: Brain: Extra-axial spaces: No abnormal extra-axial fluid collections. Ventricular system: Dilatation in proportion to cerebral atrophy. Cerebral parenchyma: Similar size of left external capsule hyperdensity. Similar cerebral atrophy. No new hemorrhage identified. The hansen-white junction is well differentiated. Scattered hypoattenuating areas are seen within the white matter. Cerebellum: Unremarkable. Mass effect: No evidence of midline shift. Intracranial vasculature: Atherosclerotic calcifications of the intracranial vessels. Soft tissues: Normal. Calvarium/osseous structures: No depressed skull fracture. Paranasal sinuses and mastoid air cells: Mild scattered paranasal sinus disease. Visualized orbits: Bilateral aphakia IMPRESSION: 1. Similar left external capsule hyperdensity which may represent calcification versus small intrapar enchymal hemorrhage. No evidence hemorrhage identified. 2. Nonspecific white matter changes, likely secondary to chronic small vessel ischemic disease.
[2022-02-02] MEDS: TAMSULOSIN 0.4 MG CAP.ER.24H PO SCH (20:37)
[2022-02-02] MEDS: ASPIRIN 81 MG PO SCH (20:37)
[2022-02-02] MEDS: MONTELUKAST 10 MG TAB PO SCH (20:37)
[2022-02-02] MEDS ORDERED: ATORVASTATIN 10 MG TAB PO SCH (21:00)
[2022-02-03] MEDS: amLODIPine 5 MG TAB PO SCH (07:55)
[2022-02-03] MEDS: METOPROLOL TARTRATE 12.5 MG TAB PO SCH ×2 (07:55→20:59)
[2022-02-03] MEDS: PANTOPRAZOLE 40 MG TABLET PO SCH (07:55)
[2022-02-03] MEDS ORDERED: BENZOCAINE/MENTHOL LOZENG 1 EACH LOZENGE MUCOUS MEM PRN (09:11)
[2022-02-03 09:20] LABS: African American GFR (CKD) 60 (>60 ml/min/1.73 sqM); Anion Gap 8 mmol/L; Blood Urea Nitrogen 16 mg/dL (9-20); Calcium 8.5 mg/dL (8.4-10.2); Carbon Dioxide 25 mmol/L (22-30); Chloride 105 mmol/L (98-107); Glucose 118 mg/dL (74-99); Non-African American GFR(CKD) 52 (>60 ml/min/1.73 sqM); Potassium 3.8 mmol/L (3.5-5.1); Sodium 138 mmol/L (137-145)
--- NOTE | 2022-02-03 10:04 | MR ---
MR brain without contrast HISTORY: Abnormal CT brain, neuro deficit Multiplanar multisequence imaging obtained through the brain Correlation to CT brain 02/01 and 02/02/2022, prior brain MRI dated 05/09/2020 Small area of restricted diffusion corresponds to the hyperdensity noted on CT along the external cap aura region on the left. Some low signal is present on T1 and T 2's weighted sequences at this level. There is extensive confluent and scattered periventricular, pericallosal, subcortical hyperintensiti es on inversion recovery and T2-weighted sequences. No hydrocephalus. There are expected vascular dorothea w voids. Inflammatory changes are present in the ethmoid air cells. Hyperintensity present on inversi on recovery T2-weighted sequences within the flo is again noted similar to prior brain MRI. Orbits s how symmetric appearance. Cerebellopontine angles, corpus callosum, cervical medullary junction are w ithin normal limits. Pituitary is stable. Brain volume shows likely age-related atrophy. IMPRESSION: Findings suggest subacute infarct, there may be a small hemorrhagic component is noted on CT at the level of the external capsule on the left. Sinus disease. Chronic small vessel ischemic ch anges and age-related atrophy again noted.
[2022-02-03] MEDS: MONTELUKAST 10 MG TAB PO SCH (20:59)
[2022-02-03] MEDS: ASPIRIN 81 MG PO SCH (20:59)
[2022-02-03] MEDS ORDERED: ATORVASTATIN 20 MG TAB PO SCH (21:00)
[2022-02-03] MEDS: TAMSULOSIN 0.4 MG CAP.ER.24H PO SCH (21:00)
--- NOTE | 2022-02-03 22:31 | P.PN ---
Subjective Progress Note Date: 02/03/22 Patient was seen for a follow-up. Patient is sitting comfortably in the recliner. Denies any focal symptoms. No headache. No dizziness. Patient's telemetry monitoring showing sinus bradycardia in the 40s. She had a 6 beat run of V. tach. Cardiology also on board. Objective - Vital Signs Vital signs: Vital Signs Temp 98.3 F 02/03/22 13:46 Pulse 57 L 02/03/22 13:46 Resp 14 02/03/22 13:46 BP 116/62 02/03/22 13:46 Pulse Ox 91 L 02/03/22 13:46 FiO2 Intake & Output 02/02/22 02/03/22 02/03/22 18:59 06:59 18:59 Intake Total 478 Output Total 500 200 Balance -500 -200 478 Intake: Oral 478 Output: Urine 500 200 Other: Voiding Method Toilet Toilet Urinal Urinal # Voids 1 1 2 - Exam Patient's mental status, speech and language functions are normal. Examination is unchanged. - Labs CBC & Chem 7: 02/01/22 19:25 02/03/22 08:48 Labs: Abnormal Lab Results - Last 24 Hours (Table) 02/03/22 Range/Units 08:48 Creatinine 1.26 H (0.66-1.25) mg/dL Glucose 118 H (74-99) mg/dL Assessment and Plan Assessment: * Probable TIA manifesting with transient slurred speech, that resolved in 2-3 hours. Patient's current neurological examination is normal, with NIH stroke scale 0. * CT head revealed a small hyperdensity involving the left external capsule, probable small intracranial hemorrhage. * Hypertension * Hyperlipidemia * History of GI bleed * Gait imbalance, rule out B12 deficiency. * CAD Plan: * Repeat CT head showed similar left external capsular hyperdensity, which may represent calcification versus small intraparenchymal hemorrhage. I personally reviewed computed tomography scan of the head. This hyperdensity was not present in the computed tomography scan of head from 02/23/2020, therefore probably represents small hemorrhage rather than calcification. * MRI of the brain revealed findings suggestive subacute infarct. There may be a small hemorrhagic component noted at the CT level of the external capsule on the left. I personally reviewed MRI, agree with the findings. * Check 2-D echo, rule out embolic source. * Patient's telemetry monitoring showed 6 beat run of V. tach last night. Consider Cardiology consultation. * Lipid panel with cholesterol 159, LDL 87.9, HDL 46 triglycerides 121. Patient was on Lipitor 10 mg daily. We will increase the dose to 20 mg daily. * CTA of the neck and CTA of the head reported as "negative". * Patient has gait imbalance for 2 years. Patient's last B12 was borderline 278 on 01/24/2020. Repeat B12 02/02/2022 was 382, folate 11.80. Patient takes vitamin B12 3 days a week. He was recommended to take it daily. MMA, B6 pending. * Hemoglobin A1c 5.9, normal. * Continue aspirin 81 mg daily for now.
[2022-02-04 07:47] VITALS: BP 137/79; PULSE 57; RESP 20; TEMP 97.6
--- NOTE | 2022-02-04 07:59 | P.DS ---
Providers Date of admission: 02/01/22 20:40 Expected date of discharge: 02/04/22 Attending physician: Steven Rice Consults: 02/01/22 20:40 Consult Physician Urgent Consulting Provider: Trevor Mohamud Consult Reason/Comments: TIA Do you want consulting provider notified?: Yes Primary care physician: Steven Dwayne [place] Hospital Course: HISTORY OF PRESENT ILLNESS: 86-year-old male patient with recurrent history of bowel obstruction who is known to have history of asthma, CAD, hyperlipidemia, hypertension, and history of heart disease post angioplasty and stent placement in the past. He gives history that yesterday he was working in the barn with his daughter around 5:00 but was not doing anything strenuous at the time. He developed difficulty finding words and was saying the wrong words. His daughter drove him into the hospital for evaluation. He states the symptoms resolved last evening. He states he had a little left hand numbness. No weakness of the upper or lower extremities. He also gives history that he was in the office about 2 weeks ago and saw [facility] for earache, sore throat and sore neck. He was diagnosed with a sinus infection and placed on a Medrol Dosepak and anabiotic's. He states he was doing much better until this last week the sore throat and sore neck returned. Patient also states that he received Covid booster 5 Materna 07/03/2021 and after that was and unable to speak for 20-30 minutes and resolved on its own. Patient presented to [facility] emergency center for evaluation. He was found to be afebrile, heart rate 84, blood pressure 95/69 with repeat of 149/82, pulse ox 96% on room air. CBC was within normal limits. Sodium 136. Creatinine 1.28, blood sugar 123. Troponin negative on one drop. Liver function tests normal. CT of the brain revealed mild atrophy. No acute intracranial abnormality. Chest x-ray shows no acute cardiopulmonary disease. CTA of the head and neck normal. Patient was placed on the observation unit, neuro checks, consult with neurology. 02/03: Patient states he has no further symptoms. His speech is clear. No weakness to his extremities. Repeat CAT scan of the brain performed last evening revealed similar left extemal capsule hyperdensity which may represent calcification versus small intraparenchymal hemorrhage. No evidence hemorrhage identified. Nonspecific white matter changes likely secondary to chronic small vessel ischemic change. MRI of the brain revealed subacute infarct. There may be a small hemorrhage component noted on the CAT scan at the level of the external capsule on the left. Sinus disease. Chronic small vessel ischemic changes and age-related atrophy. 02/04: The patient apparently had expressive aphasia last night. Dr. Magana has reviewed CAT scans and MRI with radiology and patient has not had a CVA. Noted to be a small hemorrhage. He recommends a repeat CAT scan today and also cardiology consult as patient had a run of 6 beats of V. tach on 02/02. Patient has been seen by cardiology with recommendations to review bubble study echo, increase atorvastatin to 40 mg nightly and follow with Dr. Benedict in one to 2 weeks. Repeat CAT scan of the brain revealed age-related chronic small vessel disease without acute findings. Patient has been cleared by nephrology for discharge. Patient will be discharged home today in stable condition. DISCHARGE DIAGNOSES Expressive aphasia and TIA secondary to small intraparenchymal hemorrhage. Recent treatment for sinus infection. History of partial small bowel obstruction with previous admissions in 2020. History of CAD post angioplasty and stent placement in the past Hypertension. Hyperlipidemia. Seasonal ALLERGIES. Mild intermittent asthma. History of hepatitis C: Not active at this point. Gastroesophageal reflux disease DISCHARGE PLAN Home Greater than 35 minutes was utilized and coordinating patient's discharge. Impression and plan of care have been directed as dictated by the signing physician. Susi Cardona nurse practitioner acting as scribe for signing physician. Patient Condition at Discharge: Stable Plan - Discharge Summary Discharge Rx Participant: No New Discharge Prescriptions: New Atorvastatin [Lipitor] 40 mg PO HS #30 tablet Continue Omeprazole 40 mg PO DAILY Metoprolol Tartrate [Lopressor] 12.5 mg PO BID Vitamin B Complex 1 cap PO CLAUDIO Calcium Citrate/Vitamin D3 [Citracal + D Maximum Caplet] 1 tab PO DAILY Montelukast Sodium [Singulair] 10 mg PO HS amLODIPine [Norvasc] 5 mg PO DAILY Famotidine 20 mg PO BID PRN PRN Reason: Heartburn Tamsulosin [Flomax] 0.4 mg PO HS Cyanocobalamin (Vitamin B-12) [Vitamin B-12] 1,000 mcg PO MOWEFR Discontinued Simvastatin [Zocor] 20 mg PO HS Aspirin EC [Ecotrin Low Dose] 81 mg PO HS Discharge Medication List Omeprazole 40 mg PO DAILY 02/14/19 [History] Calcium Citrate/Vitamin D3 [Citracal + D Maximum Caplet] 1 tab PO DAILY 02/23/20 [History] Metoprolol Tartrate [Lopressor] 12.5 mg PO BID 02/23/20 [History] Vitamin B Complex 1 cap PO CLAUDIO 02/23/20 [History] Montelukast Sodium [Singulair] 10 mg PO HS 03/15/20 [History] Cyanocobalamin (Vitamin B-12) [Vitamin B-12] 1,000 mcg PO MOWEFR 02/01/22 [History] Famotidine 20 mg PO BID PRN 02/01/22 [History] Tamsulosin [Flomax] 0.4 mg PO HS 02/01/22 [History] amLODIPine [Norvasc] 5 mg PO DAILY 02/01/22 [History] Atorvastatin [Lipitor] 40 mg PO HS #30 tablet 02/04/22 [Rx] Follow up Appointment(s)/Referral(s): Jamel Benedict MD [STAFF PHYSICIAN] - 2 Weeks Steven Rice MD [Primary Care Provider] - 1-2 days (WEDNESDAY SCHEDULED) Discharge Disposition: HOME SELF-CARE
[2022-02-04] MEDS: PANTOPRAZOLE 40 MG TABLET PO SCH (09:05)
[2022-02-04] MEDS: METOPROLOL TARTRATE 12.5 MG TAB PO SCH (09:06)
[2022-02-04] MEDS: amLODIPine 5 MG TAB PO SCH (09:06)
--- NOTE | 2022-02-04 09:13 | P.PN ---
Subjective Progress Note Date: 02/04/22 Patient was seen for a follow-up. Patient is reclining comfortably in the bed, having breakfast. Denies any focal symptoms. No headache. No dizziness. Patient's telemetry monitoring on 02/02/2022 showed sinus bradycardia in the 40s. He had a 6 beat run of V. tach. Cardiology also on board. Objective - Vital Signs Vital signs: Vital Signs Temp 97.6 F 02/04/22 07:00 Pulse 57 L 02/04/22 07:00 Resp 20 02/04/22 07:00 BP 137/79 02/04/22 07:00 Pulse Ox 93 L 02/04/22 07:00 FiO2 Intake & Output 02/03/22 02/04/22 02/04/22 18:59 06:59 18:59 Intake Total 718 Balance 718 Intake: Oral 718 Other: Voiding Method Toilet Urinal # Voids 2 1 - Exam Patient's mental status, speech and language functions are normal. Visual zimmerman are full, face is symmetric and tongue protrudes the midline. Muscle strength no drift, and the strength is normal. No ataxia. Sensations equal. - Labs CBC & Chem 7: 02/01/22 19:25 02/03/22 08:48 Labs: Abnormal Lab Results - Last 24 Hours (Table) 02/03/22 Range/Units 08:48 Creatinine 1.26 H (0.66-1.25) mg/dL Glucose 118 H (74-99) mg/dL Assessment and Plan Assessment: * Probable TIA manifesting with transient slurred speech, that resolved in 2-3 hours. Patient's current neurological examination is normal, with NIH stroke scale 0. * CT head revealed a small punctate hyperdensity involving the left external capsule, probable small intraparenchymal hemorrhage. * No ischemic stroke on the MRI. * Hypertension * Hyperlipidemia * History of GI bleed * Gait imbalance, rule out B12 deficiency. * CAD Plan: * MRI of the brain reported as subacute infarct with hemorrhagic component. I reviewed MRI of the brain with Dr. Coy, who agreed there was no acute ischemic stroke, only small left intraparenchymal hemorrhage. MRI report addended as "findings suggest small punctate acute intraparenchymal hemorrhage. Acute or subacute infarct felt not present". * I reviewed CTA of head and neck with Dr. Coy as well. There is no stenosis, occlusion or aneurysm. * As the MRI showed possibility of ischemic stroke, therefore aspirin was continued initially. However now with negative MRI brain report for ischemic stroke, we will stop aspirin. * Repeat CT head today, follow-up on the hemorrhage. * 2-D echo completed, results pending. Cardiology to follow up on 6 beat run of V. tach noted on the telemetry. * Lipid panel with cholesterol 159, LDL 87.9, HDL 46 triglycerides 121. Patient was on Lipitor 10 mg daily. We will increase the dose to 20 mg daily. * Patient has gait imbalance for 2 years. Patient's last B12 was borderline 278 on 01/24/2020. Repeat B12 02/02/2022 was 382, folate 11.80. Patient takes vitamin B12 3 days a week. He was recommended to take it daily. MMA, B6 pending. * Hemoglobin A1c 5.9, normal. * Discussed with primary team in detail. Addendum 1:45 PM: Repeat CT head reported no acute process, no hemorrhage. I reviewed it with the radiologist, and the small/punctate left sided intracranial hemorrhage involving external capsule is unchanged. Cardiology recommending increasing Lipitor to 40 mg. Stop aspirin Repeat CT head in one week. Follow-up with Dr. Andrade in 1-2 weeks. Return to the hospital, if any worsening clinically.
--- NOTE | 2022-02-04 10:29 | P.CRDCN ---
History of Present Illness History of present illness: HISTORY OF PRESENTING ILLNESS This is a pleasant 86-year-old male past medical history significant for coronary artery disease status post PCI of the mid LAD in 2002, proximal RCA in 2018, dyslipidemia, hypertension, chronic kidney disease. He follows in the office with Dr. Benedict. We have been asked to see in consultation for 6 beat run of NSVT that occurred 2 days ago on 02/02. Patient seen and examined at bedside, he initially presented to the hospital on 02/01/2022 with expressive aphasia that lasted about 2 hours. Patient states that his daughter was with him and she noticed him having difficulty getting his words out and difficulty saying certain words. Patient started was concern about him to the emergency department for further evaluation. Neurology evaluated the patient. MRI reported initially as subacute infarct with small hemorrhagic component, then addendum to findings suggest small punctuated acute intraparenchymal hemorrhage, acute or subacute infarct felt not present. Patient states that his symptoms resolved on Wednesday. Patient seen and examined at bedside, no acute distress. He denies any chest pain or shortness of breath, palpitations, lightheadedness or dizziness. Overall he is feeling well. He denies any weakness, headache, facial droop, numbness or tingling. He denies any visual problems. He feels as if his speech has improved. DIAGNOSTICS EKG reveals sinus rhythm, heart rate 72, first-degree AV block, no significant ST-T wave abnormalities to suggest ischemia Telemetry tracings indicate patient maintaining sinus mechanism with heart rates in the 50s70s, one episode of 6 beat run of nonsustained VT. No further episodes Brain CT reported as similar left external capsule hypertensity which may represent calcification versus small intra-parenchymal hemorrhage, nonspecific white matter changes CT angiogram of head and neck reported as negative Laboratory reviewed, CBC unremarkable, sodium 138, potassium 3.8, BUN 16, serum creatinine 1.2, troponin negative, triglycerides 121, cholesterol 59, LDL 87, HDL 46 Current home cardiac medications include atorvastatin 20 mg nightly, aspirin 81 mg nightly, metoprolol tartrate 12.5 mg twice a day, amlodipine 5 mg daily. Most recent echocardiogram in the office 07/2020 revealed normal ejection fraction, mild mitral regurgitation, mild tricuspid regurgitation Recent Lexiscan in the office 11/20/2021 revealed no evidence of reversible ischemia REVIEW OF SYSTEMS At the time of my exam: CONSTITUTIONAL: Denies fever or chills. CARDIOVASCULAR: Denies chest pain, shortness of breath, orthopnea, PND or palpitations. RESPIRATORY: Denies cough. GASTROINTESTINAL: Denies abdominal pain, diarrhea, constipation, nausea or vomiting. MUSCULOSKELETAL: Denies myalgias. NEUROLOGIC: Denies numbness, tingling, headacbe or weakness. ENDOCRINE: Denies fatigue, weight change, polydipsia or polyurina. GENITOURINARY: Denies burning, hematuria or urgency with micturation. HEMATOLOGIC: Denies history of anemia or bleeding. PHYSICAL EXAMINATION Blood pressure 137/79, heart rate 57, afebrile, saturations 9395 percent room air CONSTITUTIONAL: No apparent distress. HEENT: Head is normocephalic. Pupils are equal, round. Sclerae anicteric. Mucous membranes of the mouth are moist. No JVD. No carotid bruit. CHEST EXAMINATION: Lungs are clear to auscultation. No chest wall tenderness is noted on palpation or with deep breathing. HEART EXAMINATION: Regular rate and rhythm. S1, S2 heard. No murmurs, gallops or rub. ABDOMEN: Soft, nontender. Positive bowel sounds. EXTREMITIES: 2+ peripheral pulses, no lower extremity edema and no calf tenderness. NEUROLOGIC EXAMINATION: Patient is awake, alert and oriented x3. ASSESSMENT Expressive aphasia, transient, MRI reported initially as subacute infarct with small hemorrhagic component, then addendum to findings suggest small punctuated acute intraparenchymal hemorrhage, acute or subacute infarct felt not present. One episode of NSVT on 02/02/2022, no re-occurrence, patient asymptomatic Coronary artery disease status post PCI of the mid LAD in 2001, proximal RCA in 2018 Dyslipidemia Hypertension Chronic kidney disease PLAN 2D echocardiogram with bubble study ordered will review Increase atorvastatin 40mg nightly No evidence of atrial fibrillation noted on telemetry Continue other cardiac medications Discharge per primary and neurology Follow up with Dr. Benedict in 1-2 week. Nurse practitioner note has been reviewed by physician. Signing provider agrees with the documented findings, assessment, and plan of care. Past Medical History Past Medical History: Asthma, Coronary Artery Disease (CAD), Chest Pain / Angina, GERD/Reflux, GI Bleed, Hearing Disorder / Deafness, Hyperlipidemia, Hypertension, Liver Disease, Osteoarthritis (OA) Additional Past Medical History / Comment(s): Recurrent SBO d/t adhesions with conservative treatment and surgical treatment, mild leaky heart valve, bleeding ulcer/lower GI bleed many years ago with exsanguination and stayed in ICU/had transfusions then another less severe lower GI bleed a few years later, upper GI bleed, duodenal ulcer, hiatal hernia, hepatitis C d/t blood transfusion-2nd treatment successful, some recent short term memory issues/tremors in hands and balance issues past few months being worked up, constipation, diverticulitis and past pre cancerous polypectomies-last colonoscopy was normal in 2018, low back pain, L shoulder pain, 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 History of Any Multi-Drug Resistant Organisms: None Reported Past Surgical History: Bowel Resection, Cholecystectomy, Heart Catheterization With Stent, Orthopedic Surgery Additional Past Surgical History / Comment(s): 06/2018 PCI with stent, 1999 PCI with 2 stents, laparotomy with lysis of adhesions, R rotator cuff repair, R knee arthroscopy, R upper chest lipoma removed, bilateral cataract removals/lens implants, EGD and colonoscopies with pre cancerous polypectomies-last colonoscopy in 2018 was normal per pt. Past Anesthesia/Blood Transfusion Reactions: Blood Transfusion Reaction Additional Past Anesthesia/Blood Transfusion Reaction / Comment(s): CONTRACTED HEP C FROM A BLOOD TRANSFUSION 35-40 YEARS AGO. Date of Last Stent Placement:: JUN 2018 Past Psychological History: No Psychological Hx Reported Additional Psychological History / Comment(s): Pt resides with his spouse. Smoking Status: Former smoker Past Alcohol Use History: None Reported Additional Past Alcohol Use History / Comment(s): Patient was a smoker from [id number]. He drinks a glass of wine on special occasions. Past Drug Use History: None Reported - Past Family History Mother Family Medical History: Cancer Additional Family Medical History / Comment(s): Other at age 80 from acute kidney injury following surgery. Patient had bladder suspension surgery and she developed to have possibly uterine cancer however she ended up with renal failure refused hemodialysis Father Family Medical History: Cancer, Deep Vein Thrombosis (DVT), Pulmonary Embolus Additional Family Medical History / Comment(s): LUNG CANCER. Father in his mid 60s due to blood clots with history of bladder cancer . The cause of pulmonary embolism. Brother(s) Family Medical History: Cancer, Coronary Artery Disease (CAD) Additional Family Medical History / Comment(s): Patient has one brother with history of non-Hodgkin's lymphoma diagnosed 15 YEARS AGO. He does not have any sisters. He has adult children with no major medical problem basically 2 sons and a daughter. Medications and Allergies Home Medications Medication Instructions Recorded Confirmed Type Omeprazole 40 mg PO DAILY 02/14/19 02/01/22 History Calcium Citrate/Vitamin D3 1 tab PO DAILY 02/23/20 02/01/22 History [Citracal + D Maximum Caplet] Metoprolol Tartrate [Lopressor] 12.5 mg PO BID 02/23/20 02/01/22 History Vitamin B Complex 1 cap PO CLAUDIO 02/23/20 02/01/22 History Montelukast Sodium [Singulair] 10 mg PO HS 03/15/20 02/01/22 History Aspirin EC [Ecotrin Low Dose] 81 mg PO HS 01/28/21 02/01/22 History Cyanocobalamin (Vitamin B-12) 1,000 mcg PO MOWEFR 02/01/22 02/01/22 History [Vitamin B-12] Famotidine 20 mg PO BID PRN 02/01/22 02/01/22 History Tamsulosin [Flomax] 0.4 mg PO HS 02/01/22 02/01/22 History amLODIPine [Norvasc] 5 mg PO DAILY 02/01/22 02/01/22 History Atorvastatin [Lipitor] 20 mg PO HS #30 tab 02/04/22 Rx Allergies Allergy/AdvReac Type Severity Reaction Status Date / Time atenolol Allergy Syncope Verified 02/01/22 20:34 Penicillins Allergy Rash/Hives Verified 02/01/22 20:34 prednisone Allergy Rash/Hives Verified 02/01/22 20:34 Physical Exam Vitals: Vital Signs Temp Pulse Resp BP BP Pulse Ox 02/04/22 07:00 97.6 F 57 L 20 137/79 93 L 02/04/22 02:09 98.3 F 65 15 104/60 95 02/03/22 19:36 98.2 F 64 17 120/69 95 02/03/22 13:46 98.3 F 57 L 14 116/62 91 L Intake and Output 02/03/22 02/04/22 02/04/22 22:59 06:59 14:59 Intake Total 240 240 Balance 240 240 Intake: Oral 240 240 Other: Voiding Method Toilet Toilet Urinal Urinal # Voids 1 1 Results 02/01/22 19:25 02/03/22 08:48 Comprehensive Metabolic Panel 02/03/22 Range/Units 08:48 Sodium 138 (137-145) mmol/L Potassium 3.8 (3.5-5.1) mmol/L Chloride 105 (98-107) mmol/L Carbon Dioxide 25 (22-30) mmol/L BUN 16 (9-20) mg/dL Creatinine 1.26 H (0.66-1.25) mg/dL Glucose 118 H (74-99) mg/dL Calcium 8.5 (8.4-10.2) mg/dL Current Medications Generic Name Dose Route Start Last Admin Trade Name Freq PRN Reason Stop Dose Admin Amlodipine Besylate 5 mg 02/02/22 09:00 02/03/22 07:55 Amlodipine 5 Mg Tab PO 5 mg DAILY SANA Administration Atorvastatin Calcium 20 mg 02/03/22 21:00 02/03/22 20:59 Atorvastatin 20 Mg Tab PO 20 mg HS SANA Administration Benzocaine/Menthol 1 each 02/03/22 09:11 02/03/22 13:13 Benzocaine/Menthol Lozeng 1 Each Lozenge MUCOUS MEM 1 each Q4HR PRN Administration Sore Throat Famotidine 20 mg 02/02/22 07:57 02/02/22 08:44 Famotidine 20 Mg Tab PO 20 mg BID PRN Administration Heartburn Metoprolol Tartrate 12.5 mg 02/02/22 09:00 02/03/22 20:59 Metoprolol Tartrate 12.5 Mg Tab PO 12.5 mg BID SANA Administration Montelukast Sodium 10 mg 02/02/22 21:00 02/03/22 20:59 Montelukast 10 Mg Tab PO 10 mg HS SANA Administration Pantoprazole Sodium 40 mg 02/02/22 08:15 02/03/22 07:55 Pantoprazole 40 Mg Tablet PO 40 mg [id number] SANA Administration Tamsulosin HCl 0.4 mg 02/02/22 21:00 02/03/22 21:00 Tamsulosin 0.4 Mg Cap.Er.24h PO 0.4 mg HS SANA Administration Intake and Output 02/03/22 02/04/22 02/04/22 22:59 06:59 14:59 Intake Total 240 240 Balance 240 240 Intake: Oral 240 240 Other: Voiding Method Toilet Toilet Urinal Urinal # Voids 1 1 02/01/22 19:25 02/03/22 08:48
--- NOTE | 2022-02-04 11:53 | CA ---
Transthoracic Echo Report Name: Benjy Snow Age: 86 Gender: M : 1935 Exam Date: 02/04/2022 07:38 Exam Location: [facility] Ht (in): 65 Wt (lb): 160 Ordering Physician: Victoria Arreola MD Attending/Referring Phys: Button Puncher Steffany Griffin RDCS Procedure CPT: Indications: stroke Cardiac Hx: Technical Quality: Good Contrast 1: Total Dose (mL): Contrast 2: Total Dose (mL): MEASUREMENTS (Male / Female) Normal Values 2D ECHO LV Diastolic Diameter PLAX 4.7 cm 4.2 - 5.9 / 3.9 - 5.3 cm LV Systolic Diameter PLAX 2.9 cm IVS Diastolic Thickness 1.0 cm 0.6 - 1.0 / 0.6 - 0.9 cm LVPW Diastolic Thickness 1.1 cm 0.6 - 1.0 / 0.6 - 0.9 cm LV Relative Wall Thickness 0.4 RV Internal Dim ED PLAX 3.1 cm LA Systolic Diameter LX 3.4 cm 3.0 - 4.0 / 2.7 - 3.8 cm LA Volume 40.8 cm??? 18 - 58 / 22 - 52 cm??? M-MODE Aortic Root Diameter MM 3.5 cm MV E Point Septal Separation 0.8 cm AV Cusp Separation MM 2.0 cm DOPPLER AV Peak Velocity 113.7 cm/s AV Peak Gradient 5.2 mmHg MV Area PHT 3.1 cm??? Mitral E Point Velocity 85.3 cm/s Mitral A Point Velocity 105.7 cm/s Mitral E to A Ratio 0.8 MV Deceleration Time 246.4 ms MV E' Velocity 4.7 cm/s Mitral E to MV E' Ratio 18.0 TR Peak Velocity 208.0 cm/s TR Peak Gradient 17.3 mmHg Right Ventricular Systolic Press 21.7 mmHg FINDINGS Left Ventricle Left ventricular ejection fraction is estimated at 55-60 %. Left ventricular cavity size normal. Borderline left ventricular hypertrophy. Right Ventricle Normal right ventricular size and function. Right ventricular systolic pressure within normal limits. Right Atrium Normal right atrial size. Negative agitated saline bubble study for right to left shunt. Left Atrium Normal left atrial size. No evidence for an atrial septal defect. Mitral Valve Structurally normal mitral valve. No mitral stenosis, regurgitation or prolapse. Mild mitral regurgitation Aortic Valve Trileaflet aortic valve. No aortic valve stenosis or regurgitation. Tricuspid Valve Trace to mild tricuspid regurgitation. Normal appearance of the tricuspid valve Pulmonic Valve Pulmonic valve not well visualized. Pericardium Normal pericardium. No pericardial effusion. Aorta Normal size aortic root and proximal ascending aorta. CONCLUSIONS 1. Normal size and systolic function 2. Mild mitral and tricuspid regurgitation 3. No evidence of shunting by color the study or contrast bubble study. Previewed by: Dr. Jamel Benedict MD (Electronically Signed) Final Date: 04 February 2022 11:52
--- NOTE | 2022-02-04 12:01 | CT ---
EXAMINATION TYPE: CT brain wo con DATE OF EXAM: 02/04/2022 COMPARISON: 02/02/2022 HISTORY: follow up [facility] CT DLP: [address] of the brain was performed. The ventricles, basal cisterns and sulci overlying the cerebral convexities demonstrate mild enlargem ent. There is no evidence for intracranial hemorrhage or sulcal effacement. There is decreased attenuation about the periventricular white matte 02/02/2022 r and deep white matte r of both cerebral hemispheres, compatible with chronic small vessel ischemia. Differential diagnosis does include demyelination. No mass effects are seen.No midline shift. Osseous calvarium is intact. If symptoms persist consider MRI. IMPRESSION: 1. Age related atrophic and chronic small vessel ischemic change without acute intracranial process s een at this time.
[2022-02-04] MEDS ORDERED: ATORVASTATIN 40 MG TAB PO SCH (21:00)
== END 2022-02-04 14:05 | disposition home or self-care (01) | DRG 69 ==
LOC: EC 19:03 → 6NMEDSUR 20:40 → OBSVTOIN 02-03 12:47
PROVIDERS: ADMIT Internal Medicine Geriatric Medicine; ATTEND Internal Medicine Geriatric Medicine
DX: G45.9 Transient cerebral ischemic attack, unspecified (principal); R47.01 Aphasia; I47.2 Ventricular tachycardia; R00.1 Bradycardia, unspecified; I12.9 Hypertensive chronic kidney disease with stage 1 through stage 4 chronic kidney disease, or unspecified chronic kidney disease; N18.9 Chronic kidney disease, unspecified; I25.10 Atherosclerotic heart disease of native coronary artery without angina pectoris; J45.20 Mild intermittent asthma, uncomplicated; K21.9 Gastro-esophageal reflux disease without esophagitis; B19.20 Unspecified viral hepatitis C without hepatic coma; K43.9 Ventral hernia without obstruction or gangrene; I44.0 Atrioventricular block, first degree; I08.1 Rheumatic disorders of both mitral and tricuspid valves; K44.9 Diaphragmatic hernia without obstruction or gangrene; E78.5 Hyperlipidemia, unspecified; R25.1 Tremor, unspecified; H91.90 Unspecified hearing loss, unspecified ear; M10.9 Gout, unspecified; M19.90 Unspecified osteoarthritis, unspecified site; M54.50 Low back pain, unspecified; M25.512 Pain in left shoulder; R26.89 Other abnormalities of gait and mobility; Z88.0 Allergy status to penicillin; Z88.8 Allergy status to other drugs, medicaments and biological substances; Z79.899 Other long term (current) drug therapy; Z90.49 Acquired absence of other specified parts of digestive tract; Z95.5 Presence of coronary angioplasty implant and graft; Z98.42 Cataract extraction status, left eye; Z98.41 Cataract extraction status, right eye; J30.2 Other seasonal allergic rhinitis; Z96.1 Presence of intraocular lens; Z79.82 Long term (current) use of aspirin; Z87.11 Personal history of peptic ulcer disease; Z86.010 Personal history of colon polyps; Z87.19 Personal history of other diseases of the digestive system; Z87.891 Personal history of nicotine dependence; Z80.1 Family history of malignant neoplasm of trachea, bronchus and lung; Z80.8 Family history of malignant neoplasm of other organs or systems; Z84.1 Family history of disorders of kidney and ureter; Z80.52 Family history of malignant neoplasm of bladder; Z83.2 Family history of diseases of the blood and blood-forming organs and certain disorders involving the immune mechanism; Z82.49 Family history of ischemic heart disease and other diseases of the circulatory system; Z80.7 Family history of other malignant neoplasms of lymphoid, hematopoietic and related tissues; Z86.73 Personal history of transient ischemic attack (TIA), and cerebral infarction without residual deficits; Z86.19 Personal history of other infectious and parasitic diseases
CPT/HCPCS: 36415; 70450; 70496; 70498; 70551; 71046; 80048; 80053; 80061; 82607; 82746; 83036; 83921; 84207; 84443; 84484; 85025; 85610; 85730; 93005; 93306; 94760; 99285

== ENCOUNTER → 2022-02-17 | Outpatient (CLI) | payer MEDICARE ==
--- NOTE | 2022-02-17 08:12 | CT ---
EXAMINATION TYPE: CT brain wo con CT DLP: 1141 mGycm, Automated exposure control for dose reduction was used. DATE OF EXAM: 02/17/2022 8:03 AM COMPARISON: Prior CT Brain from 02/04/2022. CLINICAL INDICATION:Male, 86 years old with history of R47.01, Difficulty in speech TECHNIQUE: Brain: Multiple axial CT images of the brain were obtained without IV contrast. Coronal and sagittal reformats reviewed. FINDINGS: Brain: Extra-axial spaces: No abnormal extra-axial fluid collections. Ventricular system: Dilatation in proportion to cerebral atrophy. Cerebral parenchyma: No acute intraparenchymal hemorrhage or mass effect. The hansen-white junction is well differentiated. Scattered hypoattenuating areas are seen within the white matter. Previously s een left external capsule hyperdensity is less conspicuous. Cerebral volume loss. Cerebellum: Unremarkable. Mass effect: No evidence of midline shift. Intracranial vasculature: Atherosclerotic calcifications of the intracranial vessels. Soft tissues: Normal. Calvarium/osseous structures: No depressed skull fracture. Paranasal sinuses and mastoid air cells: Clear Visualized orbits: Bilateral aphakia IMPRESSION: 1. No acute intracranial process. No significant change from prior examination. 2. Nonspecific white matter changes, likely secondary to chronic small vessel ischemic disease.
== END | disposition home or self-care (01) ==
LOC: RADCTMAIN 06:41
PROVIDERS: ATTEND Psychiatry & Neurology Neurology
DX: I67.82 Cerebral ischemia (principal)
CPT/HCPCS: 70450

== ENCOUNTER 2022-03-27 22:03 | Inpatient (IN) | payer MEDICARE ==
[2022-03-28 06:08] LABS: Basophils # (A) 0.1 k/uL (0-0.2); Basophils % (A) 1 %; Eosinophils # (A) 0.6 k/uL (0-0.7); Eosinophils % (A) 4 %; HCT 45.8 % (39.0-53.0); HGB 15.4 gm/dL (13.0-17.5); Lymphocytes # (A) 1.7 k/uL (1.0-4.8); Lymphocytes % (A) 12 %; MCH 31.4 pg (25.0-35.0); MCHC 33.6 g/dL (31.0-37.0); MCV 93.5 fL (80.0-100.0); Mean Platelet Volume 8.3; Monocytes # (A) 1.3 k/uL (0-1.0); Monocytes % (A) 10 %; Neutrophils # (A) 9.9 k/uL (1.3-7.7); Neutrophils % (A) 72 %; Platelet Count 207 k/uL (150-450); RDW 12.8 % (11.5-15.5); WBC 13.8 k/uL (3.8-10.6)
[2022-03-28] MEDS ORDERED: SODIUM CHLORIDE 0.9% 1,000 ML IV STA (06:20)
[2022-03-28 06:29] LABS: Appearance,Urine Clear (Clear); Bilirubin,Urine Negative (Negative); Blood,Urine Negative (Negative); Color,Urine Yellow; Glucose,Urine (UA) Negative (Negative); Hyaline Casts,Urine 1 /lpf (0-2); Ketones,Urine Negative (Negative); Leukocyte Esterase,Urine Negative (Negative); Mucus,Urine Moderate /hpf; Nitrite,Urine Negative (Negative); PH, Urine 5.5 (5.0-8.0); Protein,Urine 1+ (Negative); RBC,Urine 3 /hpf (0-5); Specific Gravity,Urine 1.025 (1.001-1.035); Urobilinogen,Urine <2.0 mg/dL (<2.0); WBC,Urine 1 /hpf (0-5)
--- NOTE | 2022-03-28 06:56 | ED ---
Abdominal Pain HPI - General Chief Complaint: Abdominal Pain Stated Complaint: Abd pain,Weakness Time Seen by Provider: 03/28/22 06:07 Source: patient, RN notes reviewed Mode of arrival: wheelchair - History of Present Illness Initial Comments: Patient is an 86-year-old male who presents to the emergency room with complaints of left lower quadrant abdominal pain, diarrhea nausea with vomiting. He reports his abdominal pain improved after vomiting. He states that he has had 2 episodes of diarrhea and nausea. His last episode of emesis was at approximately 8 PM last night with his last bowel movement around 11 PM last night. He states that he has had previous bowel obstructions requiring admission for IV hydration while being nothing by mouth. His last hospitalization was approximately 1 year ago. 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 He denies any chest pain, shortness of breath, bloody emesis or bloody stool, unintentional weight changes, fevers or chills. As stated above he has a past medical history of recurrent small bowel obstructions being medically managed. In addition to his obstructions history he has a past medical history significant for hepatitis C with treatment in remission, hypertension, CAD, hyperlipidemia, GI bleed, gastric ulcers, and osteoarthritis. - Related Data Home Medications Medication Instructions Recorded Confirmed Omeprazole 40 mg PO DAILY 02/14/19 02/01/22 Calcium Citrate/Vitamin D3 1 tab PO DAILY 02/23/20 02/01/22 [Citracal + D Maximum Caplet] Metoprolol Tartrate [Lopressor] 12.5 mg PO BID 02/23/20 02/01/22 Vitamin B Complex 1 cap PO CLAUDIO 02/23/20 02/01/22 Montelukast Sodium [Singulair] 10 mg PO HS 03/15/20 02/01/22 Cyanocobalamin (Vitamin B-12) 1,000 mcg PO MOWEFR 02/01/22 02/01/22 [Vitamin B-12] Famotidine 20 mg PO BID PRN 02/01/22 02/01/22 Tamsulosin [Flomax] 0.4 mg PO HS 02/01/22 02/01/22 amLODIPine [Norvasc] 5 mg PO DAILY 02/01/22 02/01/22 Previous Rx's Medication Instructions Recorded Atorvastatin [Lipitor] 40 mg PO HS #30 tablet 02/04/22 Allergies Allergy/AdvReac Type Severity Reaction Status Date / Time atenolol Allergy Syncope Verified 03/27/22 22:40 Penicillins Allergy Rash/Hives Verified 03/27/22 22:40 prednisone Allergy Rash/Hives Verified 03/27/22 22:40 Review of Systems ROS Statement: Those systems with pertinent positive or pertinent negative responses have been documented in the HPI. ROS Other: All systems not noted in ROS Statement are negative. Past Medical History Past Medical History: Asthma, Coronary Artery Disease (CAD), Chest Pain / A ngina, GERD/Reflux, GI Bleed, Hearing Disorder / Deafness, Hyperlipidemia, Hypertension, Liver Disease, Osteoarthritis (OA) Additional Past Medical History / Comment(s): Recurrent SBO d/t adhesions with conservative treatment and surgical treatment, mild leaky heart valve, bleeding ulcer/lower GI bleed many years ago with exsanguination and stayed in ICU/had transfusions then another less severe lower GI bleed a few years later, upper GI bleed, duodenal ulcer, hiatal hernia, hepatitis C d/t blood transfusion-2nd treatment successful, some recent short term memory issues/tremors in hands and balance issues past few months being worked up, constipation, diverticulitis and past pre cancerous polypectomies-last colonoscopy was normal in 2018, low back pain, L shoulder pain, gout-saw log roper in past, 06/2018 shingelles, [place] bilaterally, ventral hernia. History of Any Multi-Drug Resistant Organisms: None Reported Past Surgical History: Bowel Resection, Cholecystectomy, Heart Catheterization With Stent, Orthopedic Surgery Additional Past Surgical History / Comment(s): 06/2018 PCI with stent, 1999 PCI with 2 stents, laparotomy with lysis of adhesions, R rotator cuff repair, R knee arthroscopy, R upper chest lipoma removed, bilateral cataract removals/lens implants, EGD and colonoscopies with pre cancerous polypectomies-last colonoscopy in 2018 was normal per pt. Past Anesthesia/Blood Transfusion Reactions: Blood Transfusion Reaction Additional Past Anesthesia/Blood Transfusion Reaction / Comment(s): CONTRACTED HEP C FROM A BLOOD TRANSFUSION 35-40 YEARS AGO. Date of Last Stent Placement:: JUN 2018 Past Psychological History: No Psychological Hx Reported Smoking Status: Former smoker Past Alcohol Use History: None Reported Past Drug Use History: None Reported - Past Family History Mother Family Medical History: Cancer Additional Family Medical History / Comment(s): Other at age 80 from acute kidney injury following surgery. Patient had bladder suspension surgery and she developed to have possibly uterine cancer however she ended up with renal failure refused hemodialysis Father Family Medical History: Cancer, Deep Vein Thrombosis (DVT), Pulmonary Embolus Additional Family Medical History / Comment(s): LUNG CANCER. Father in his mid 60s due to blood clots with history of bladder cancer . The cause of pulmonary embolism. Brother(s) Family Medical History: Cancer, Coronary Artery Disease (CAD) Additional Family Medical History / Comment(s): Patient has one brother with history of non-Hodgkin's lymphoma diagnosed 15 YEARS AGO. He does not have any sisters. He has adult children with no major medical problem basically 2 sons and a daughter. General Exam General appearance: alert, in no apparent distress Head exam: Present: atraumatic, normocephalic, normal inspection Eye exam: Present: normal appearance, PERRL, EOMI. Absent: scleral icterus, conjunctival injection, periorbital swelling ENT exam: Present: normal exam, mucous membranes moist Neck exam: Present: normal inspection Respiratory exam: Present: normal lung sounds bilaterally. Absent: respiratory distress, wheezes, rales, rhonchi, stridor Cardiovascular Exam: Present: regular rate, normal rhythm, normal heart sounds. Absent: systolic murmur, diastolic murmur, rubs, gallop, clicks GI/Abdominal exam: Present: soft, normal bowel sounds, hernia (Umbilical), other (Rounded). Absent: distended, tenderness Rectal exam: Present: deferred Extremities exam: Present: normal inspection. Absent: pedal edema, joint swelling Back exam: Present: normal inspection Neurological exam: Present: alert, oriented X3, CN II-XII intact Psychiatric exam: Present: normal affect, normal mood Skin exam: Present: warm, dry, intact, normal color. Absent: rash Course Vital Signs 03/27/22 03/28/22 22:35 05:59 Temperature 98.2 F Pulse Rate 87 Respiratory 16 18 Rate Blood Pressure 145/82 146/81 O2 Sat by Pulse 95 94 L Oximetry Medical Decision Making - Medical Decision Making 86-year-old male presenting to the emergency room with abdominal pain, nausea, vomiting and diarrhea with the past medical history for small bowel obstructions. Will give IV hydration for volume loss from diarrhea and vomiting. Will check CBC, CMP, amylase, lipase along with computed tomography scan of abdomen. He denies any analgesic or antibiotic needs to this time. CBC shows elevated leukocytes and neutrophil count. CMP normal with the exception of elevated glucose at 112. Computed tomography scan shows mildly dilated small bowel consistent with enteritis and partial small bowel obstruction. Slight increase in abdominal pain no further episodes of nausea vomiting. Denies analgesic need. Dr. Armendariz with [facility] contacted regarding p nate's status as there covering for patient's primary care provider Dr. Dr. Rice. Admission for partial small bowel obstruction accepted. Will please consult for general surgery to Dr. Maxwell per Dr. Armendariz request and patient's known surgeon. Case discussed with Dr. Bonilla. - Lab Data Result diagrams: 03/28/22 05:58 03/28/22 06:06 Lab Results 03/28/22 03/28/22 03/28/22 Range/Units 05:58 06:00 06:06 WBC 13.8 H (3.8-10.6) k/uL RBC 4.90 (4.30-5.90) m/uL Hgb 15.4 (13.0-17.5) gm/dL Hct 45.8 (39.0-53.0) % MCV 93.5 (80.0-100.0) fL MCH 31.4 (25.0-35.0) pg MCHC 33.6 (31.0-37.0) g/dL RDW 12.8 (11.5-15.5) % Plt Count 207 (150-450) k/uL MPV 8.3 Neutrophils % 72 % Lymphocytes % 12 % Monocytes % 10 % Eosinophils % 4 % Basophils % 1 % Neutrophils # 9.9 H (1.3-7.7) k/uL Lymphocytes # 1.7 (1.0-4.8) k/uL Monocytes # 1.3 H (0-1.0) k/uL Eosinophils # 0.6 (0-0.7) k/uL Basophils # 0.1 (0-0.2) k/uL Sodium 137 (137-145) mmol/L Potassium 4.4 (3.5-5.1) mmol/L Chloride 101 (98-107) mmol/L Carbon Dioxide 24 (22-30) mmol/L Anion Gap 12 mmol/L BUN 16 (9-20) mg/dL Creatinine 1.18 (0.66-1.25) mg/dL Est GFR (CKD-EPI)AfAm 65 (>60 ml/min/1.73 sqM) Est GFR (CKD-EPI)NonAf 56 (>60 ml/min/1.73 sqM) Glucose 114 H (74-99) mg/dL Calcium 9.1 (8.4-10.2) mg/dL Total Bilirubin 0.9 (0.2-1.3) mg/dL AST 30 (17-59) U/L ALT 24 (4-49) U/L Alkaline Phosphatase 82 (38-126) U/L Total Protein 7.0 (6.3-8.2) g/dL Albumin 4.4 (3.5-5.0) g/dL Amylase 63 (30-110) U/L Lipase 36 (23-300) U/L Urine Color Yellow Urine Appearance Clear (Clear) Urine pH 5.5 (5.0-8.0) Ur Specific [place] 1.025 (1.001-1.035) Urine Protein 1+ H (Negative) Urine Glucose (UA) Negative (Negative) Urine Ketones Negative (Negative) Urine Blood Negative (Negative) Urine Nitrite Negative (Negative) Urine Bilirubin Negative (Negative) Urine Urobilinogen <2.0 (<2.0) mg/dL Ur Leukocyte Esterase Negative (Negative) Urine RBC 3 (0-5) /hpf Urine WBC 1 (0-5) /hpf Hyaline Casts 1 (0-2) /lpf Urine Mucus Moderate H (None) /hpf - Radiology Data Radiology results: report reviewed, image reviewed CT the abdomen and pelvis with contrast shows mildly dilated small bowel with circumferential wall thickening without focal transition point. Findings suggest acute enteritis with partial small bowel obstruction or ileus. No pneumatosis or portal vein gas. Disposition Clinical Impression: Partial small bowel obstruction Disposition: ADMITTED IP TO THIS HOSP Condition: Stable Is patient prescribed a controlled substance at d/c from ED?: No Referrals: Steven Rice MD [Primary Care Provider] - 1-2 days Time of Disposition: 08:32
[2022-03-28 07:03] LABS: Albumin 4.4 g/dL (3.5-5.0); Calcium 9.1 mg/dL (8.4-10.2); Potassium 4.4 mmol/L (3.5-5.1); Total Bilirubin 0.9 mg/dL (0.2-1.3)
--- NOTE | 2022-03-28 08:02 | CT ---
EXAMINATION TYPE: CT abdomen pelvis w con CT DLP: 1017.6 mGycm, Automated exposure control for dose reduction was used. DATE OF EXAM: 03/28/2022 7:45 AM COMPARISON: CT abdomen pelvis most recent from 03/12/2021 . CLINICAL INDICATION:Male, 86 years old with history of abdominal pain; Abd pain, weakness TECHNIQUE: Standard CT of the abdomen and pelvis following the administration of 100 cc of Isovue 3 00 IV contrast material. Coronal and sagittal reformats were performed. FINDINGS: LOWER CHEST: Posterior dependent subsegmental atelectasis is noted. ABDOMEN LIVER: Diffusely hypoattenuating parenchyma. GALLBLADDER AND BILE DUCTS: The gallbladder is surgically absent. No biliary ductal dilatation. PANCREAS: Unremarkable. SPLEEN: Unremarkable. ADRENAL GLANDS: Unremarkable. KIDNEYS AND URETERS: No hydronephrosis or renal calculi. Stable bilateral renal cysts. PELVIS BLADDER: Unremarkable REPRODUCTIVE: Unremarkable. ABDOMEN & PELVIS STOMACH AND BOWEL: Small hiatal hernia. Duodenal diverticulum involving the first/second portion. Alexandra colonic diverticulosis without evidence for acute diverticulitis. No suspicious dilatation of the duo denal sweep. There is gradual transition to more prominent small bowel loops with mild intrahepatic w all thickening in the mid to lower abdomen. This is more prominent on the left. No pneumatosis or por shira venous gas. Terminal ileum is normal in caliber. PERITONEUM: No evidence of pneumoperitoneum or free fluid. VASCULATURE: Mild atherosclerotic calcifications are present throughout the abdominal aorta and its b ranches. No evidence of aortic aneurysm. MUSCULOSKELETAL: No acute osseous abnormalities. Mild disc degeneration changes are present throughou t the thoracolumbar spine. LYMPH NODES: No gross evidence for lymphadenopathy. SOFT TISSUE/ABDOMINAL WALL: Periumbilical hernia versus eventration containing loop of small bowel. D efect measures 6.5 x 4.5 cm in TV and cc dimensions. Small bilateral fat filled inguinal hernias. IMPRESSION: Mildly dilated small bowel with circumferential wall thickening without focal transition point. Findi ngs suggest acute enteritis with partial small bowel obstruction or ileus. This includes infectious, inflammatory, and ischemic etiologies. No pneumatosis or portal venous gas.
[2022-03-28] MEDS ORDERED: NALOXONE 0.4 MG/ML 1 ML VIAL IV PRN (08:32)
[2022-03-28] MEDS ORDERED: MORPHINE SULFATE 4 MG/ML SYRINGE IV PRN (08:32)
[2022-03-28] MEDS: SODIUM CHLORIDE 0.9% 1,000 ML IV SCH ×2 (09:30→21:18)
[2022-03-28] MEDS: ONDANSETRON 4 MG/2 ML VIAL IVP PRN ×2 (09:30→16:23)
--- NOTE | 2022-03-28 11:21 | P.GSCN ---
History of Present Illness Consult date: 03/28/22 Reason for Consult: Bowel obstruction History of present illness: Patient presents to the emergency department with abdominal pain and concerns fo r bowel obstruction. He has a history of bowel obstruction in the past which is resolved without surgery. Last admission was about a year ago. Yesterday the patient had a stuffed chicken breast for lunch along with a year of sweet corn. He thinks the sweet corn may have caused the obstruction. He had vomiting x1 yesterday. None today. No diarrhea or constipation. No blood in the stool or dark tarry stool. His abdomen is lightly distended Review of Systems All systems: negative Past Medical History Past Medical History: Asthma, Coronary Artery Disease (CAD), Chest Pain / Angina, GERD/Reflux, GI Bleed, Hearing Disorder / Deafness, Hyperlipidemia, Hypertension, Liver Disease, Osteoarthritis (OA) Additional Past Medical History / Comment(s): Recurrent SBO d/t adhesions with conservative treatment and surgical treatment, mild leaky heart valve, bleeding ulcer/lower GI bleed many years ago with exsanguination and stayed in ICU/had transfusions then another less severe lower GI bleed a few years later, upper GI bleed, duodenal ulcer, hiatal hernia, hepatitis C d/t blood transfusion-2nd treatment successful, some recent short term memory issues/tremors in hands and balance issues past few months being worked up, constipation, diverticulitis and past pre cancerous polypectomies-last colonoscopy was normal in 2018, low back pain, L shoulder pain, 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 History of Any Multi-Drug Resistant Organisms: None Reported Past Surgical History: Bowel Resection, Cholecystectomy, Heart Catheterization With Stent, Orthopedic Surgery Additional Past Surgical History / Comment(s): 06/2018 PCI with stent, 1999 PCI with 2 stents, laparotomy with lysis of adhesions, R rotator cuff repair, R knee arthroscopy, R upper chest lipoma removed, bilateral cataract removals/lens implants, EGD and colonoscopies with pre cancerous polypectomies-last colonoscopy in 2018 was normal per pt. Past Anesthesia/Blood Transfusion Reactions: Blood Transfusion Reaction Additional Past Anesthesia/Blood Transfusion Reaction / Comm: CONTRACTED HEP C FROM A BLOOD TRANSFUSION 35-40 YEARS AGO. Date of Last Stent Placement:: JUN 2018 Past Psychological History: No Psychological Hx Reported Smoking Status: Former smoker Past Alcohol Use History: None Reported Past Drug Use History: None Reported - Past Family History Mother Family Medical History: Cancer Additional Family Medical History / Comment(s): Other at age 80 from acute kidney injury following surgery. Patient had bladder suspension surgery and she developed to have possibly uterine cancer however she ended up with renal failure refused hemodialysis Father Family Medical History: Cancer, Deep Vein Thrombosis (DVT), Pulmonary Embolus Additional Family Medical History / Comment(s): LUNG CANCER. Father in his mid 60s due to blood clots with history of bladder cancer . The cause of pulmonary embolism. Brother(s) Family Medical History: Cancer, Coronary Artery Disease (CAD) Additional Family Medical History / Comment(s): Patient has one brother with history of non-Hodgkin's lymphoma diagnosed 15 YEARS AGO. He does not have any sisters. He has adult children with no major medical problem basically 2 sons and a daughter. Medications and Allergies Home Medications Medication Instructions Recorded Confirmed Type Omeprazole 40 mg PO DAILY 02/14/19 02/01/22 History Calcium Citrate/Vitamin D3 1 tab PO DAILY 02/23/20 02/01/22 History [Citracal + D Maximum Caplet] Metoprolol Tartrate [Lopressor] 12.5 mg PO BID 02/23/20 02/01/22 History Vitamin B Complex 1 cap PO CLAUDIO 02/23/20 02/01/22 History Montelukast Sodium [Singulair] 10 mg PO HS 03/15/20 02/01/22 History Cyanocobalamin (Vitamin B-12) 1,000 mcg PO MOWEFR 02/01/22 02/01/22 History [Vitamin B-12] Famotidine 20 mg PO BID PRN 02/01/22 02/01/22 History Tamsulosin [Flomax] 0.4 mg PO HS 02/01/22 02/01/22 History amLODIPine [Norvasc] 5 mg PO DAILY 02/01/22 02/01/22 History Atorvastatin [Lipitor] 40 mg PO HS #30 tablet 02/04/22 Rx Allergies Allergy/AdvReac Type Severity Reaction Status Date / Time atenolol Allergy Syncope Verified 03/27/22 22:40 Penicillins Allergy Rash/Hives Verified 03/27/22 22:40 prednisone Allergy Rash/Hives Verified 03/27/22 22:40 Surgical - Exam Osteopathic Statement: *. No significant issues noted on an osteopathic structural exam other than those noted in the History and Physical/Consult. Vital Signs Temp Pulse Resp BP Pulse Ox 98.2 F 87 16 145/82 95 03/27/22 22:35 03/27/22 22:35 03/27/22 22:35 03/27/22 22:35 03/27/22 22:35 - General well developed, well nourished, no distress - Eyes normal ocular movement - Neck trachea midline - Respiratory clear to auscultation - Cardiovascular Rhythm: regular - Abdomen Abdomen: tender (mild nonspecific), no guarding, no rigid, no rebound, distended (softly distended with some tympany to percussion) Results - Labs 03/28/22 05:58 03/28/22 06:06 Abnormal Lab Results - Last 24 Hours (Table) 03/28/22 03/28/22 03/28/22 Range/Units 05:58 06:00 06:06 WBC 13.8 H (3.8-10.6) k/uL Neutrophils # 9.9 H (1.3-7.7) k/uL Monocytes # 1.3 H (0-1.0) k/uL Glucose 114 H (74-99) mg/dL Urine Protein 1+ H (Negative) Urine Mucus Moderate H (None) /hpf Diabetes panel 03/28/22 Range/Units 06:06 Sodium 137 (137-145) mmol/L Potassium 4.4 (3.5-5.1) mmol/L Chloride 101 (98-107) mmol/L Carbon Dioxide 24 (22-30) mmol/L BUN 16 (9-20) mg/dL Creatinine 1.18 (0.66-1.25) mg/dL Glucose 114 H (74-99) mg/dL Calcium 9.1 (8.4-10.2) mg/dL AST 30 (17-59) U/L ALT 24 (4-49) U/L Alkaline Phosphatase 82 (38-126) U/L Total Protein 7.0 (6.3-8.2) g/dL Albumin 4.4 (3.5-5.0) g/dL Calcium panel 03/28/22 Range/Units 06:06 Calcium 9.1 (8.4-10.2) mg/dL Albumin 4.4 (3.5-5.0) g/dL Pituitary panel 03/28/22 Range/Units 06:06 Sodium 137 (137-145) mmol/L Potassium 4.4 (3.5-5.1) mmol/L Chloride 101 (98-107) mmol/L Carbon Dioxide 24 (22-30) mmol/L BUN 16 (9-20) mg/dL Creatinine 1.18 (0.66-1.25) mg/dL Glucose 114 H (74-99) mg/dL Calcium 9.1 (8.4-10.2) mg/dL Adrenal panel 03/28/22 Range/Units 06:06 Sodium 137 (137-145) mmol/L Potassium 4.4 (3.5-5.1) mmol/L Chloride 101 (98-107) mmol/L Carbon Dioxide 24 (22-30) mmol/L BUN 16 (9-20) mg/dL Creatinine 1.18 (0.66-1.25) mg/dL Glucose 114 H (74-99) mg/dL Calcium 9.1 (8.4-10.2) mg/dL Total Bilirubin 0.9 (0.2-1.3) mg/dL AST 30 (17-59) U/L ALT 24 (4-49) U/L Alkaline Phosphatase 82 (38-126) U/L Total Protein 7.0 (6.3-8.2) g/dL Albumin 4.4 (3.5-5.0) g/dL - Imaging CT scan - abdomen: report reviewed, image reviewed Assessment and Plan (1) Partial small bowel obstruction Current Visit: Yes Status: Acute Code(s): K56.600 - PARTIAL INTESTINAL OBSTRUCTION, UNSPECIFIED TO CAUSE SNOMED Code(s): 695854245 (2) Abdominal pain Current Visit: No Status: Acute Code(s): R10.9 - UNSPECIFIED ABDOMINAL PAIN SNOMED Code(s): 10968519 Plan: Patient appears to have a partial bowel obstruction. He has had this in the past which is resolved nonsurgically. We will continue bowel rest. Hydration and serial exams. We will follow with you
[2022-03-28] MEDS: TAMSULOSIN 0.4 MG CAP.ER.24H PO SCH (21:18)
[2022-03-28] MEDS: METOPROLOL TARTRATE 12.5 MG TAB PO SCH (21:18)
[2022-03-28] MEDS: ATORVASTATIN 40 MG TAB PO SCH (21:18)
[2022-03-29 09:11] LABS: HCT 43.1 % (39.6-50.0); HGB 14.5 g/dL (13.0-17.0); MCH 31.7 pg (27.0-32.0); MCHC 33.6 g/dL (32.0-37.0); MCV 94.1 fL (80.0-97.0); NRBC Per 100 WBC 0 /100 WBCS (0.0-0.0); Platelet Count 195 X 10*3/uL (140-440); RBC 4.58 X 10*6/uL (4.40-5.60); RDW 12.8 % (11.5-14.5); WBC 11.86 X 10*3/uL (4.50-10.00)
[2022-03-29] MEDS: METOPROLOL TARTRATE 12.5 MG TAB PO SCH ×2 (09:32→21:01)
[2022-03-29] MEDS: ENOXAPARIN 40 MG/0.4 ML SYRINGE SQ SCH (09:32)
--- NOTE | 2022-03-29 11:06 | P.HPIM ---
History of Present Illness H&P Date: 03/28/22 Patient is an 68-year-old male came in with compensative nausea vomiting patient did have couple bowel movements a straight patient's abdomen is distended found to have a partial small bowel obstruction and ileus. Patient had multiple episodes in the past patient had 1 episode of nausea vomiting. Patient nausea all although improved patient is found to have leukocytosis CT of the abdomen did not show any infection did not show any diverticulitis no fever and showed partial volvulus small bowel obstruction. REVIEW OF SYSTEMS: CONSTITUTIONAL: No fever, no malaise, no fatigue. HEENT: No recent visual problems or hearing problems. Denied any sore throat. CARDIOVASCULAR: No chest pain, orthopnea, PND, no palpitations, no syncope. PULMONARY: No shortness of breath, no cough, no hemoptysis. GASTROINTESTINAL: No diarrhea. NEUROLOGICAL: No headaches, no weakness, no numbness. HEMATOLOGICAL: Denies any bleeding or petechiae. GENITOURINARY: Denies any burning micturition, frequency, or urgency. MUSCULOSKELETAL/RHEUMATOLOGICAL: Denies any joint pain, swelling, or any muscle pain. ENDOCRINE: Denies any polyuria or polydipsia. The rest of the 14-point review of systems is negative. PHYSICAL EXAMINATION: GENERAL: The patient is alert and oriented x3, not in any acute distress. Well developed, well nourished. HEENT: Pupils are round and equally reacting to light. EOMI. No scleral icterus. No conjunctival pallor. Normocephalic, atraumatic. No pharyngeal erythema. No thyromegaly. CARDIOVASCULAR: S1 and S2 present. No murmurs, rubs, or gallops. PULMONARY: Chest is clear to auscultation, no wheezing or crackles. ABDOMEN: Distended tympanic, absent bowel sounds MUSCULOSKELETAL: No joint swelling or deformity. EXTREMITIES: No cyanosis, clubbing, or pedal edema. NEUROLOGICAL: Gross neurological examination did not reveal any focal deficits. SKIN: No rashes. Assessment and plan -Partial small bowel obstruction: Conservative measures patient will remain nothing by mouth is not requiring any NG tube patient will not require any antibiotics at the course acidosis is reactive in nature. -Hypervolemic hyponatremia secondary to nausea vomiting continue with IV fluids -Hypertension hold off amlodipine continue with the beta rafy -Hyperlipidemia -Benign prostatic hypertrophy -Coronary artery disease -DVT prophylaxis: Lovenox Past Medical History Past Medical History: Asthma, Coronary Artery Disease (CAD), Chest Pain / Angina, GERD/Reflux, GI Bleed, Hearing Disorder / Deafness, Hyperlipidemia, Hypertension, Liver Disease, Osteoarthritis (OA) Additional Past Medical History / Comment(s): Recurrent SBO d/t adhesions with conservative treatment and surgical treatment, mild leaky heart valve, bleeding ulcer/lower GI bleed many years ago with exsanguination and stayed in ICU/had transfusions then another less severe lower GI bleed a few years later, upper GI bleed, duodenal ulcer, hiatal hernia, hepatitis C d/t blood transfusion-2nd treatment successful, some recent short term memory issues/tremors in hands and balance issues past few months being worked up, constipation, diverticulitis and past pre cancerous polypectomies-last colonoscopy was normal in 2018, low back pain, L shoulder pain, 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 History of Any Multi-Drug Resistant Organisms: None Reported Past Surgical History: Bowel Resection, Cholecystectomy, Heart Catheterization With Stent, Orthopedic Surgery Additional Past Surgical History / Comment(s): 06/2018 PCI with stent, 1999 PCI with 2 stents, laparotomy with lysis of adhesions, R rotator cuff repair, R knee arthroscopy, R upper chest lipoma removed, bilateral cataract removals/lens implants, EGD and colonoscopies with pre cancerous polypectomies-last colonoscopy in 2018 was normal per pt. Past Anesthesia/Blood Transfusion Reactions: Blood Transfusion Reaction Additional Past Anesthesia/Blood Transfusion Reaction / Comment(s): CONTRACTED HEP C FROM A BLOOD TRANSFUSION 35-40 YEARS AGO. Date of Last Stent Placement:: JUN 2018 Past Psychological History: No Psychological Hx Reported Additional Psychological History / Comment(s): Pt resides with his spouse. Smoking Status: Former smoker Past Alcohol Use History: None Reported Additional Past Alcohol Use History / Comment(s): Patient was a smoker from [id number]. He drinks a glass of wine on special occasions. Past Drug Use History: None Reported - Past Family History Mother Family Medical History: Cancer Additional Family Medical History / Comment(s): Other at age 80 from acute kidney injury following surgery. Patient had bladder suspension surgery and she developed to have possibly uterine cancer however she ended up with renal failure refused hemodialysis Father Family Medical History: Cancer, Deep Vein Thrombosis (DVT), Pulmonary Embolus Additional Family Medical History / Comment(s): LUNG CANCER. Father in his mid 60s due to blood clots with history of bladder cancer . The cause of pulmonary embolism. Brother(s) Family Medical History: Cancer, Coronary Artery Disease (CAD) Additional Family Medical History / Comment(s): Patient has one brother with history of non-Hodgkin's lymphoma diagnosed 15 YEARS AGO. He does not have any sisters. He has adult children with no major medical problem basically 2 sons and a daughter. Medications and Allergies Home Medications Medication Instructions Recorded Confirmed Type Omeprazole 40 mg PO DAILY 02/14/19 03/28/22 History Calcium Citrate/Vitamin D3 1 tab PO DAILY 02/23/20 03/28/22 History [Citracal + D Maximum Caplet] Metoprolol Tartrate [Lopressor] 12.5 mg PO BID 02/23/20 03/28/22 History Vitamin B Complex 1 cap PO CLAUDIO 02/23/20 03/28/22 History Montelukast Sodium [Singulair] 10 mg PO HS 03/15/20 03/28/22 History Cyanocobalamin (Vitamin B-12) 1,000 mcg PO [id number] 02/01/22 03/28/22 History [Vitamin B-12] Famotidine 20 mg PO BID PRN 02/01/22 03/28/22 History Tamsulosin [Flomax] 0.4 mg PO HS 02/01/22 03/28/22 History amLODIPine [Norvasc] 5 mg PO DAILY 02/01/22 03/28/22 History Atorvastatin [Lipitor] 40 mg PO HS #30 tablet 02/04/22 03/28/22 Rx Allergies Allergy/AdvReac Type Severity Reaction Status Date / Time atenolol Allergy Syncope Verified 03/28/22 11:54 Penicillins Allergy Rash/Hives Verified 03/28/22 11:54 prednisone Allergy Rash/Hives Verified 03/28/22 11:54 Physical Exam Vitals: Vital Signs Temp Pulse Pulse Resp BP BP Pulse Ox 03/29/22 08:00 97.8 F 61 16 104/63 92 L 03/29/22 00:37 98.4 F 57 L 18 105/61 92 L 03/28/22 19:30 98.2 F 79 18 113/68 95 03/28/22 17:25 60 18 03/28/22 17:00 98.4 F 60 18 134/75 100 03/28/22 16:35 98.4 F 92 18 125/76 95 Intake and Output 03/28/22 03/29/22 03/29/22 22:59 06:59 14:59 Intake Total 150 Output Total 300 300 Balance -150 -300 Intake: Intake, IV Titration 150 Amount Sodium Chloride 0.9% 1, 150 000 ml @ 75 mls/hr IV . [id number] [facility] Rx#:[id number] Output: Urine 300 300 Other: Voiding Method Urinal Urinal # Voids 1 Weight 72.575 kg Results CBC & Chem 7: 03/29/22 03:12 03/28/22 06:06 Labs: Abnormal Lab Results - Last 24 Hours (Table) 03/29/22 Range/Units 03:12 WBC 11.86 H (4.50-10.00) X 10*3/uL Thrombosis Risk Factor Assmnt - Choose All That Apply Any of the Below Risk Factors Present?: Yes Each Factor Represents 1 point: Obesity (BMI >25) Other Risk Factors: Yes Each Risk Factor Represents 3 Points: Age 75 years or older Thrombosis Risk Factor Assessment Total Risk Factor Score: 4 Thrombosis Risk Factor Assessment Level: Moderate Risk
[2022-03-29 11:48] LABS: Anion Gap 13.9 mmol/L (10.00-18.00); BUN/Creat Ratio 12.17 Ratio (12.00-20.00); Blood Urea Nitrogen 14.6 mg/dL (9.0-27.0); Calcium 8.3 mg/dL (8.7-10.3); Carbon Dioxide 19.1 mmol/L (20.0-27.5); Non-African American GFR(CKD) 55.2 (60.0-200.0); Potassium 4.2 mmol/L (3.5-5.5)
--- NOTE | 2022-03-29 12:53 | P.PN ---
Subjective Progress Note Date: 03/29/22 Principal diagnosis: Partial small bowel obstruction Patient is seen on rounds. He's feeling a little better today. His passed some gas. Still feels distended. Still having some generalized abdominal discomfort. No vomiting. Objective - Vital Signs Vital signs: Vital Signs Temp 97.8 F 03/29/22 08:00 Pulse 61 03/29/22 08:00 Resp 16 03/29/22 08:00 BP 104/63 03/29/22 08:00 Pulse Ox 92 L 03/29/22 08:00 FiO2 Intake & Output 03/28/22 03/29/22 03/29/22 18:59 06:59 18:59 Intake Total 150 Output Total 300 300 Balance -150 -300 Weight 72.575 kg Intake: Intake, IV Titration 150 Amount Sodium Chloride 0.9% 1, 150 000 ml @ 75 mls/hr IV . [id number] [facility] Rx#:[id number] Output: Urine 300 300 Other: Voiding Method Urinal Urinal # Voids 1 - Constitutional General appearance: Present: cooperative, no acute distress - Gastrointestinal General gastrointestinal: Present: decreased bowel sounds, distended (Softly di stended without guarding or rebound) - Labs CBC & Chem 7: 03/29/22 03:12 03/29/22 03:12 Labs: Abnormal Lab Results - Last 24 Hours (Table) 03/29/22 03/29/22 Range/Units 03:12 03:12 WBC 11.86 H (4.50-10.00) X 10*3/uL Carbon Dioxide 19.1 L (20.0-27.5) mmol/L Est GFR (CKD-EPI)NonAf 55.2 L (60.0-200.0) Calcium 8.3 L (8.7-10.3) mg/dL Assessment and Plan (1) Partial small bowel obstruction Current Visit: Yes Status: Acute Code(s): K56.600 - PARTIAL INTESTINAL OBSTRUCTION, UNSPECIFIED TO CAUSE SNOMED Code(s): 041398993 (2) Abdominal pain Current Visit: No Status: Acute Code(s): R10.9 - UNSPECIFIED ABDOMINAL PAIN SNOMED Code(s): 33423707 Plan: Encourage activity. We'll give the patient some clear liquids later today. Patient has had these episodes in the past so he understands the usual treatment course. Questions were encouraged and answered.
--- NOTE | 2022-03-29 13:43 | P.PN ---
Subjective Progress Note Date: 03/29/22 Patient is an 68-year-old male came in with compensative nausea vomiting patient did have couple bowel movements a straight patient's abdomen is distended found to have a partial small bowel obstruction and ileus. Patient had multiple episodes in the past patient had 1 episode of nausea vomiting. Patient nausea all although improved patient is found to have leukocytosis CT of the abdomen did not show any infection did not show any diverticulitis no fever and showed partial volvulus small bowel obstruction. 03/29/2022 Patient is evaluated today resting in bed. IV fluids are infusing at 75 mls per hour, he has been maintained on clear liquid diet. He did have small soft brown BM today with also some liquid stool. No reports of blood in the stool. He has hyperactive bowel sounds and also some mild epigastric tenderness on palpation. White count today improved to 11.86, BUN 14.6, creatinine 1.2, glucose 85. Surgery has started patient on clear liquid diet. Review of Systems Constitutional: Denied any fatigue denied any fever. Cardio vascular: denied any chest pain, palpitations Gastrointestinal: denied any nausea, vomiting, diarrhea Pulmonary: Denied any shortness of breath cough Neurologic denied any new focal deficits All inpatient medications were reviewed and appropriate changes in these medications as dictated in the interval history and assessment and plan. PHYSICAL EXAMINATION: GENERAL: The patient is alert and oriented x3, not in any acute distress. Well developed, well nourished. HEENT: Pupils are round and equally reacting to light. EOMI. No scleral icterus. No conjunctival pallor. Normocephalic, atraumatic. No pharyngeal erythema. No thyromegaly. CARDIOVASCULAR: S1 and S2 present. No murmurs, rubs, or gallops. PULMONARY: Chest is clear to auscultation, no wheezing or crackles. ABDOMEN: hyperactive bowel sounds, mild epigastric tenderness, nondistended. MUSCULOSKELETAL: No joint swelling or deformity. EXTREMITIES: No cyanosis, clubbing, or pedal edema. NEUROLOGICAL: Gross neurological examination did not reveal any focal deficits. SKIN: No rashes. Assessment and plan -Partial small bowel obstruction: Improving with conservative measures patient is started on clear liquid diet today. Decrease IV fluids down to 40 cc per hour. His pulse ox is 92% today. Will also order incentive spirometer. -Hypotension hold off amlodipine continue with the beta rafy -Hyperlipidemia -Benign prostatic hypertrophy -Coronary artery disease -DVT prophylaxis: Lovenox -GI Prophylaxis: Pepcid Full Code The impression and plan of care has been dictated by Becca Magaña, Nurse Practitioner as directed. Dr. Marcello MD I have performed a history and physical examination and medical decision making of this patient, discussed the same with the dictator, and agree with the dictators assessment and plan as written, documented as a scribe. Based on total visit time, I have performed more than 50% of this visit. Objective - Vital Signs Vital signs: Vital Signs Temp 97.8 F 03/29/22 08:00 Pulse 61 03/29/22 08:00 Resp 16 03/29/22 08:00 BP 104/63 03/29/22 08:00 Pulse Ox 92 L 03/29/22 08:00 FiO2 Intake & Output 03/28/22 03/29/22 03/29/22 18:59 06:59 18:59 Intake Total 150 Output Total 300 300 Balance -150 -300 Weight 72.575 kg Intake: Intake, IV Titration 150 Amount Sodium Chloride 0.9% 1, 150 000 ml @ 75 mls/hr IV . [id number] [facility] Rx#:[id number] Output: Urine 300 300 Other: Voiding Method Urinal Urinal # Voids 1 - Labs CBC & Chem 7: 03/29/22 03:12 03/29/22 03:12 Labs: Abnormal Lab Results - Last 24 Hours (Table) 03/29/22 03/29/22 Range/Units 03:12 03:12 WBC 11.86 H (4.50-10.00) X 10*3/uL Carbon Dioxide 19.1 L (20.0-27.5) mmol/L Est GFR (CKD-EPI)NonAf 55.2 L (60.0-200.0) Calcium 8.3 L (8.7-10.3) mg/dL Assessment and Plan Time with Patient: Less than 30
[2022-03-29] MEDS: TAMSULOSIN 0.4 MG CAP.ER.24H PO SCH (21:01)
[2022-03-29] MEDS: ATORVASTATIN 40 MG TAB PO SCH (21:01)
[2022-03-30] MEDS: SODIUM CHLORIDE 0.9% 1,000 ML IV SCH ×3 (03:59→20:01)
[2022-03-30] MEDS: ENOXAPARIN 40 MG/0.4 ML SYRINGE SQ SCH (08:44)
[2022-03-30] MEDS: METOPROLOL TARTRATE 12.5 MG TAB PO SCH ×2 (08:44→20:06)
--- NOTE | 2022-03-30 12:13 | P.PN ---
Subjective Progress Note Date: 03/30/22 Principal diagnosis: Partial small bowel obstruction The patient is seen on rounds. Has less abdominal pain and distention. He began having bowel movements and has had some diarrhea. No nausea or vomiting. Continues to have some hickups Objective - Vital Signs Vital signs: Vital Signs Temp 98.0 F 03/30/22 07:47 Pulse 68 03/30/22 07:47 Resp 16 03/30/22 07:47 BP 142/68 03/30/22 07:47 Pulse Ox 94 L 03/30/22 07:47 FiO2 Intake & Output 03/29/22 03/30/22 03/30/22 18:59 06:59 18:59 Intake Total 480 Output Total 500 Balance 480 -500 Intake: Oral 480 Output: Urine 500 Other: Voiding Method Urinal Toilet Toilet Urinal Urinal # Voids 2 3 - Constitutional General appearance: Present: cooperative, no acute distress - Gastrointestinal General gastrointestinal: Present: distended (Softer and less tympanitic than yesterday). Absent: tenderness - Labs CBC & Chem 7: 03/29/22 03:12 03/29/22 03:12 Assessment and Plan (1) Partial small bowel obstruction Current Visit: Yes Status: Acute Code(s): K56.600 - PARTIAL INTESTINAL OBSTRUCTION, UNSPECIFIED TO CAUSE SNOMED Code(s): 944685497 (2) Abdominal pain Current Visit: No Status: Acute Code(s): R10.9 - UNSPECIFIED ABDOMINAL PAIN SNOMED Code(s): 18905958 Plan: The patient is improving. Diet will be increased to full liquid. He can then increase it as tolerated. Likely ready for discharge by tomorrow if he tolerates his diet
--- NOTE | 2022-03-30 16:57 | P.PN ---
Subjective Progress Note Date: 03/30/22 Patient is an 68-year-old male came in with compensative nausea vomiting patient did have couple bowel movements a straight patient's abdomen is distended found to have a partial small bowel obstruction and ileus. Patient had multiple episodes in the past patient had 1 episode of nausea vomiting. Patient nausea all although improved patient is found to have leukocytosis CT of the abdomen did not show any infection did not show any diverticulitis no fever and showed partial volvulus small bowel obstruction. 03/29/2022 Patient is evaluated today resting in bed. IV fluids are infusing at 75 mls per hour, he has been maintained on clear liquid diet. He did have small soft brown BM today with also some liquid stool. No reports of blood in the stool. He has hyperactive bowel sounds and also some mild epigastric tenderness on palpation. White count today improved to 11.86, BUN 14.6, creatinine 1.2, glucose 85. Surgery has started patient on clear liquid diet. 03/30/2022 Patient is evaluated today resting in bed. He did have a BM today states mostly liquid though. His diet has been advanced by surgery. He denies any nausea or vomiting. Plan is for discharge home possibly tomorrow if he tolerates diet. White count trending down to 11.86. He is afebrile, heart rate 59, blood pressure 138/68, 96% room air. Review of Systems Constitutional: Denied any fatigue denied any fever. Cardio vascular: denied any chest pain, palpitations Gastrointestinal: denied any nausea, vomiting, diarrhea, abdominal distention has improved, had BM, passing gas. Pulmonary: Denied any shortness of breath cough Neurologic denied any new focal deficits All inpatient medications were reviewed and appropriate changes in these medications as dictated in the interval history and assessment and plan. PHYSICAL EXAMINATION: GENERAL: The patient is alert and oriented x3, not in any acute distress. Well developed, well nourished. HEENT: Pupils are round and equally reacting to light. EOMI. No scleral icterus. No conjunctival pallor. Normocephalic, atraumatic. No pharyngeal erythema. No thyromegaly. CARDIOVASCULAR: S1 and S2 present. No murmurs, rubs, or gallops. PULMONARY: Chest is clear to auscultation, no wheezing or crackles. ABDOMEN: hyperactive bowel sounds, non distended no abdominal tenderness MUSCULOSKELETAL: No joint swelling or deformity. EXTREMITIES: No cyanosis, clubbing, or pedal edema. NEUROLOGICAL: Gross neurological examination did not reveal any focal deficits. SKIN: No rashes. Assessment and plan -Partial small bowel obstruction: Improving with conservative measures, diet has been advanced to full liquid by surgery -Hypotension, improved resumed on amlodipine -Hyperlipidemia -Benign prostatic hypertrophy -Coronary artery disease -DVT prophylaxis: Lovenox -GI Prophylaxis: Pepcid Full Code Possible discharge home tomorrow pending tolerance to increase in diet. The impression and plan of care has been dictated by Becca Magaña, Nurse Practitioner as directed. Dr. Marcello MD I have performed a history and physical examination and medical decision making of this patient, discussed the same with the dictator, and agree with the dictators assessment and plan as written, documented as a scribe. Based on total visit time, I have performed more than 50% of this visit. Objective - Vital Signs Vital signs: Vital Signs Temp 97.5 F L 03/30/22 14:00 Pulse 59 L 03/30/22 14:00 Resp 16 03/30/22 14:00 BP 138/68 03/30/22 14:00 Pulse Ox 96 03/30/22 14:00 FiO2 Intake & Output 03/29/22 03/30/22 03/30/22 18:59 06:59 18:59 Intake Total 480 Output Total 500 Balance 480 -500 Intake: Oral 480 Output: Urine 500 Other: Voiding Method Urinal Toilet Toilet Urinal Urinal # Voids 2 3 - Labs CBC & Chem 7: 03/29/22 03:12 03/29/22 03:12 Assessment and Plan Time with Patient: Less than 30
[2022-03-30] MEDS: ATORVASTATIN 40 MG TAB PO SCH (20:06)
[2022-03-30] MEDS: TAMSULOSIN 0.4 MG CAP.ER.24H PO SCH (20:06)
[2022-03-30] MEDS: ONDANSETRON 4 MG/2 ML VIAL IVP PRN (20:08)
[2022-03-30] MEDS: FAMOTIDINE 20 MG TAB PO PRN (23:04)
[2022-03-31] MEDS: METOPROLOL TARTRATE 12.5 MG TAB PO SCH ×2 (08:21→21:06)
[2022-03-31] MEDS: amLODIPine 5 MG TAB PO SCH (08:21)
[2022-03-31] MEDS: ENOXAPARIN 40 MG/0.4 ML SYRINGE SQ SCH (08:21)
--- NOTE | 2022-03-31 15:28 | PN ---
PROGRESS NOTE SUBJECTIVE: The patient was seen on rounds. He has passed some flatus. He continues to get fairly bloated after eating full liquid diet. He is having some belching. No nausea or vomiting. PHYSICAL EXAMINATION: VITAL SIGNS: Stable. He is afebrile. HEART: Regular rate and rhythm. LUNGS: Clear to auscultation bilaterally. ABDOMEN: Distended, tympanitic. No significant tenderness, guarding, or rebound. ASSESSMENT: Partial small bowel obstruction. PLAN: The patient appears more distended than yesterday on a full liquid diet. I am concerned he is having a persistent partial bowel obstruction. A small-bowel follow- through will be ordered. If this continues to show that there is a partial obstruction, then he would need to proceed with surgery. Questions were encouraged and answered. Nurse was instructed to call me when the report is available. MMODL / IJN: [id number] /
[2022-03-31] MEDS: TAMSULOSIN 0.4 MG CAP.ER.24H PO SCH (21:06)
[2022-03-31] MEDS: ATORVASTATIN 40 MG TAB PO SCH (21:06)
[2022-03-31] MEDS: SODIUM CHLORIDE 0.9% 1,000 ML IV SCH (21:06)
[2022-04-01] MEDS: METOPROLOL TARTRATE 12.5 MG TAB PO SCH ×2 (08:03→19:50)
[2022-04-01] MEDS: FAMOTIDINE 20 MG TAB PO PRN ×2 (08:03→17:23)
[2022-04-01] MEDS: amLODIPine 5 MG TAB PO SCH (08:03)
[2022-04-01] MEDS: ENOXAPARIN 40 MG/0.4 ML SYRINGE SQ SCH (08:04)
[2022-04-01 10:31] LABS: Basophils # (A) 0.07 X 10*3/uL (0.00-0.10); Basophils % (A) 0.8 %; Eosinophils # (A) 0.72 X 10*3/uL (0.04-0.35); Eosinophils % (A) 8.2 %; HCT 38.9 % (39.6-50.0); HGB 13.6 g/dL (13.0-17.0); Immature Grans, Automated 0.7 %; Lymphocytes # (A) 2.07 X 10*3/uL (0.90-5.00); Lymphocytes % (A) 23.5 %; MCH 31.3 pg (27.0-32.0); MCV 89.6 fL (80.0-97.0); Mean Platelet Volume 9.9 fL (9.5-12.2); Monocytes # (A) 1.21 X 10*3/uL (0.20-1.00); Monocytes % (A) 13.8 %; NRBC Per 100 WBC 0 /100 WBCS (0.0-0.0); Neutrophils # (A) 4.66 X 10*3/uL (1.80-7.70); Platelet Count 202 X 10*3/uL (140-440); RBC 4.34 X 10*6/uL (4.40-5.60); RDW 12.4 % (11.5-14.5); WBC 8.79 X 10*3/uL (4.50-10.00)
[2022-04-01 10:52] LABS: African American GFR (CKD) 71.1 (60.0-200.0); Anion Gap 10.3 mmol/L (10.00-18.00); Blood Urea Nitrogen 7.7 mg/dL (9.0-27.0); Calcium 8.6 mg/dL (8.7-10.3); Carbon Dioxide 23.7 mmol/L (20.0-27.5); Non-African American GFR(CKD) 61.3 (60.0-200.0); Potassium 3.5 mmol/L (3.5-5.5)
--- NOTE | 2022-04-01 16:16 | P.PN ---
Subjective Progress Note Date: 04/01/22 Principal diagnosis: Partial small bowel obstruction The patient seen on rounds. He had some vomiting and abdominal discomfort. He received pain medication and began feeling much better. He started passing loose stools. Patient went for upper GI today Objective - Vital Signs Vital signs: Vital Signs Temp 97.8 F 04/01/22 14:10 Pulse 55 L 04/01/22 14:10 Resp 15 04/01/22 14:10 BP 144/74 04/01/22 14:10 Pulse Ox 95 04/01/22 14:10 FiO2 Intake & Output 03/31/22 04/01/22 04/01/22 18:59 06:59 18:59 Output Total 550 Balance -550 Output: Urine 550 Other: Voiding Method Toilet Urinal # Voids 1 1 3 - Constitutional General appearance: Present: cooperative, no acute distress - Gastrointestinal General gastrointestinal: Present: distended (Softly distended), normal bowel sounds. Absent: tenderness - Labs CBC & Chem 7: 04/01/22 06:35 04/01/22 06:35 Labs: Abnormal Lab Results - Last 24 Hours (Table) 04/01/22 04/01/22 Range/Units 06:35 06:35 RBC 4.34 L (4.40-5.60) X 10*6/uL Hct 38.9 L (39.6-50.0) % Immature Gran # 0.06 H (0.00-0.04) X 10*3/uL Monocytes # 1.21 H (0.20-1.00) X 10*3/uL Eosinophils # 0.72 H (0.04-0.35) X 10*3/uL BUN 7.7 L (9.0-27.0) mg/dL BUN/Creatinine Ratio 7.00 L (12.00-20.00) Ratio Calcium 8.6 L (8.7-10.3) mg/dL Assessment and Plan (1) Partial small bowel obstruction Current Visit: Yes Status: Acute Code(s): K56.600 - PARTIAL INTESTINAL OBSTRUCTION, UNSPECIFIED TO CAUSE SNOMED Code(s): 967950242 (2) Abdominal pain Current Visit: No Status: Acute Code(s): R10.9 - UNSPECIFIED ABDOMINAL PAIN SNOMED Code(s): 62630498 Plan: The films were reviewed with the radiologist. There is a low-grade partial obstruction. I'd recommend a low fiber diet. This episode was brought on by eating corn on the cob. I'd recommend low fiber fruits and vegetables. His diet will be advanced. If he is able to tolerate a can probably go home tomorrow. Questions were encouraged and answered.
[2022-04-01] MEDS: SODIUM CHLORIDE 0.9% 1,000 ML IV SCH (17:22)
[2022-04-01] MEDS: TAMSULOSIN 0.4 MG CAP.ER.24H PO SCH (19:50)
[2022-04-01] MEDS: ATORVASTATIN 40 MG TAB PO SCH (19:50)
[2022-04-02] MEDS: SODIUM CHLORIDE 0.9% 1,000 ML IV SCH (07:01)
[2022-04-02] MEDS: ENOXAPARIN 40 MG/0.4 ML SYRINGE SQ SCH (08:22)
[2022-04-02] MEDS: METOPROLOL TARTRATE 12.5 MG TAB PO SCH (08:22)
[2022-04-02] MEDS: amLODIPine 5 MG TAB PO SCH (08:22)
--- NOTE | 2022-04-02 09:00 | P.PN ---
Subjective Progress Note Date: 04/02/22 Principal diagnosis: Partial small bowel obstruction Patient is seen on rounds. Feeling better today. He is passing flatus and barium. Tolerating a diet. Objective - Vital Signs Vital signs: Vital Signs Temp 98.2 F 04/02/22 07:52 Pulse 60 04/02/22 07:52 Resp 16 04/02/22 07:52 BP 130/63 04/02/22 07:52 Pulse Ox 94 L 04/02/22 07:52 FiO2 Intake & Output 04/01/22 04/02/22 04/02/22 18:59 06:59 18:59 Other: Voiding Method Toilet Urinal # Voids 3 0 - Constitutional General appearance: Present: cooperative, no acute distress - Gastrointestinal General gastrointestinal: Present: distended (Very softly distended), normal bowel sounds, tenderness - Labs CBC & Chem 7: 04/01/22 06:35 04/01/22 06:35 Labs: Abnormal Lab Results - Last 24 Hours (Table) 04/01/22 04/01/22 Range/Units 06:35 06:35 RBC 4.34 L (4.40-5.60) X 10*6/uL Hct 38.9 L (39.6-50.0) % Immature Gran # 0.06 H (0.00-0.04) X 10*3/uL Monocytes # 1.21 H (0.20-1.00) X 10*3/uL Eosinophils # 0.72 H (0.04-0.35) X 10*3/uL BUN 7.7 L (9.0-27.0) mg/dL BUN/Creatinine Ratio 7.00 L (12.00-20.00) Ratio Calcium 8.6 L (8.7-10.3) mg/dL Assessment and Plan (1) Partial small bowel obstruction Current Visit: Yes Status: Acute Code(s): K56.600 - PARTIAL INTESTINAL OBSTRUCTION, UNSPECIFIED TO CAUSE SNOMED Code(s): 746571195 (2) Abdominal pain Current Visit: No Status: Acute Code(s): R10.9 - UNSPECIFIED ABDOMINAL PAIN SNOMED Code(s): 39994478 Plan: Partial bowel obstruction appears to have resolved. He would be surgically stable for discharge on a low fiber diet. Follow-up with me as needed
[2022-04-02 14:28] VITALS: BP 135/64; PULSE 68; RESP 18; TEMP 97.7
--- NOTE | 2022-04-03 10:37 | FL ---
EXAMINATION TYPE: FL small bowel follow through DATE OF EXAM: 04/01/2022 12:46 PM COMPARISON: NONE HISTORY: Abdominal Pain The patient ingested thin liquid barium without difficulty. Small bowel follow-through was performed with transit time of 2 hours and 45 minutes. Small bowel loops are mildly dilated up to 4 cm with de compression suggested in the region of the distal ileum. Contrast is seen within the colon. No eviden ce for mucosal abnormality. I do not see evidence for Crohn's disease. IMPRESSION: Findings suggest low-grade distal small bowel partial obstruction.
== END 2022-04-02 17:48 | disposition home or self-care (01) | DRG 389 ==
LOC: EC 22:03 → 4SSUR 03-28 08:36
PROVIDERS: ADMIT Internal Medicine; ATTEND Internal Medicine
DX: K56.600 Partial intestinal obstruction, unspecified as to cause (principal); E87.1 Hypo-osmolality and hyponatremia; I38 Endocarditis, valve unspecified; I10 Essential (primary) hypertension; I95.9 Hypotension, unspecified; K42.9 Umbilical hernia without obstruction or gangrene; I25.10 Atherosclerotic heart disease of native coronary artery without angina pectoris; E78.5 Hyperlipidemia, unspecified; M19.90 Unspecified osteoarthritis, unspecified site; M54.50 Low back pain, unspecified; M25.512 Pain in left shoulder; R25.1 Tremor, unspecified; R73.9 Hyperglycemia, unspecified; K52.9 Noninfective gastroenteritis and colitis, unspecified; E87.70 Fluid overload, unspecified; K56.7 Ileus, unspecified; N40.0 Benign prostatic hyperplasia without lower urinary tract symptoms; H91.93 Unspecified hearing loss, bilateral; Z96.1 Presence of intraocular lens; Z86.19 Personal history of other infectious and parasitic diseases; Z79.899 Other long term (current) drug therapy; Z88.0 Allergy status to penicillin; Z88.8 Allergy status to other drugs, medicaments and biological substances; Z87.19 Personal history of other diseases of the digestive system; Z87.11 Personal history of peptic ulcer disease; Z86.010 Personal history of colon polyps; Z98.890 Other specified postprocedural states; Z90.49 Acquired absence of other specified parts of digestive tract; Z95.5 Presence of coronary angioplasty implant and graft; Z98.41 Cataract extraction status, right eye; Z98.42 Cataract extraction status, left eye; Z87.891 Personal history of nicotine dependence; Z80.49 Family history of malignant neoplasm of other genital organs; Z80.1 Family history of malignant neoplasm of trachea, bronchus and lung; Z82.49 Family history of ischemic heart disease and other diseases of the circulatory system; Z85.72 Personal history of non-Hodgkin lymphomas; Z86.018 Personal history of other benign neoplasm; Z87.39 Personal history of other diseases of the musculoskeletal system and connective tissue
CPT/HCPCS: 36415; 74177; 74250; 80048; 80053; 81001; 82150; 83690; 85025; 85027; 96361; 96374; 96375; 99285

== ENCOUNTER → 2022-04-09 | Outpatient (CLI) | payer MEDICARE ==
--- NOTE | 2022-04-10 10:47 | MM ---
Reason for Exam: Follow-up at short interval from prior study. Last mammogram was performed 6 year(s) and 2 month(s) ago. Prior Study Comparison: 02/14/2016 Bilateral Diagnostic Mammogram, [facility]. 04/08/2021 Left Diagnostic Mammogram, [facility]. Tissue Density: There are scattered fibroglandular densities. Findings: Analyzed By CAD. Flame-shaped subareolar tissue slightly more prominent on the left is redemonstrated. No new mass or suspicious group of microcalcifications in either breast. Overall Assessment: Benign, BI-RAD 2 Management: Diagnostic Breast Ultrasound of the left breast in 1 year. A clinical breast exam by your physician is recommended on an annual basis and results should be correlated with mammographic findings. This exam should not preclude additional follow-up of suspicious palpable abnormalities. Results were given to the patient verbally at the time of exam. Manage clinically. Electronically signed and approved by: Hernán Coy M.D.
--- NOTE | 2022-04-10 10:48 | USB ---
Reason for Exam: Follow-up at short interval from prior study. Technique: Method: Targeted. Prior Study Comparison: 02/14/2016 Bilateral Diagnostic Mammogram, [facility]. 04/08/2021 Left Diagnostic Mammogram, [facility]. Findings: The axilla of the left breast and the retroareolar of the left breast were scanned. Targeted ultrasound redemonstrates vague hypoechoic retroareolar region left breast felt to reflect small area of gynecomastia unchanged from prior. There is stable prominent left axillary lymph node without suspicious cortical thickening. No new suspicious mass or fluid collection. Overall Assessment: Benign, BI-RAD 2 Management: Clinical Management Manage gynecomastia clinically. Electronically signed and approved by: Hernán Coy M.D.
== END | disposition home or self-care (01) ==
LOC: RADUSWWP 09:41
PROVIDERS: ATTEND Surgery
DX: R92.8 Other abnormal and inconclusive findings on diagnostic imaging of breast (principal)
CPT/HCPCS: 77066; 76642; G0279; 77062

== ENCOUNTER → 2022-04-16 | Outpatient (CLI) | payer MEDICARE ==
[2022-04-16 12:10] VITALS: BP 136/74; PULSE 57; RESP 17; TEMP 98.4
--- NOTE | 2022-04-16 12:12 | P.PN ---
Subjective Progress Note Date: 04/16/22 Benjy is an 86 year old white male seen in consultation for Dr. Rice regarding left breast and nipple pain. The patient had a mammogram on 04-08-21 of the left breast which showed findings consistent with gynecomastia. He also had an ultrasound done on 04-08-21 of that site which also appeared to be consistent with gynecomastia. The patient initially had tenderness at this site. He was started on a trial of tamoxifen which only lasted for several months. The pain however has stopped. He is having no symptoms related to this at the present time. Not complaining of any lumps masses or nodules in either breast. He is not complaining of any masses in his testicles. He has had tow recent hospitalizations in the last several months for a minute brain bleed, and a SBO. 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 drugs: none - Constitutional Constitutional: Denies chills, Denies fever - EENT Comment: wears glasses Eyes: left pain Ears: bilateral: decreased hearing, tinnitus Ears, nose, mouth and throat: Denies headache, Denies sore throat - Breasts Breasts: bilateral: as per HPI - Cardiovascular Cardiovascular: Denies chest pain, Denies shortness of breath - Respiratory Respiratory: Reports cough - Gastrointestinal Comment: bowel blockages in the past Gastrointestinal: Denies abdominal pain, Denies diarrhea, Denies nausea, Denies vomiting - Genitourinary (Male) Comment: no testicular masses or lumps Genitourinary: Denies dysuria, Denies hematuria - Musculoskeletal Comment: left arm and shoulder pain - Integumentary Integumentary: Reports rash - Neurological Neurological: Denies numbness, Denies weakness - Psychiatric Psychiatric: Denies anxiety, Denies depression - Endocrine Endocrine: Denies fatigue, Denies weight change - Hematologic/Lymphatic Comment: aspirin baby - Allergic/Immunologic Allergic/Immunologic: Reports seasonal allergies Patient declined examination at this time.
== END ==
LOC: WWCWWP 11:34
PROVIDERS: ATTEND Surgery
DX: R92.8 Other abnormal and inconclusive findings on diagnostic imaging of breast (principal); I10 Essential (primary) hypertension; Z88.0 Allergy status to penicillin; Z88.8 Allergy status to other drugs, medicaments and biological substances; Z87.891 Personal history of nicotine dependence

== ENCOUNTER 2022-05-05 12:51 | Observation (INO) | payer MEDICARE ==
[2022-05-05] MEDS ORDERED: SODIUM CHLORIDE 0.9% 500 ML 500 ML IV STA (13:08)
[2022-05-05 13:17] LABS: Glucose,Whole Blood 136 mg/dL (70-110)
--- NOTE | 2022-05-05 13:34 | CT ---
EXAMINATION TYPE: CT brain wo con DATE OF EXAM: 05/05/2022 COMPARISON: 02/17/2022 HISTORY: 86-year-old male Neuro deficits, acute, code stroke TECHNIQUE: Examination was done in axial plane without intravenous contrast. Coronal and sagittal r econstructions performed. CT DLP: 1133.6 mGycm Automated exposure control for dose reduction was used. FINDINGS: There is no evidence of acute intracranial hemorrhage, acute ischemic changes, mass, mass-effect, or extra-axial fluid collection. There is no effacement of cerebral sulci or basal subarachnoid cister ns. Mild ventricular prominence is unchanged. There is no midline shift. Scott-white matter distincti on is preserved. Other scattered calcifications within the carotid siphons. Scattered moderate atherosclerotic calcifi cations within the bilateral proximal to mid vertebral arteries. Similar [id number] cerebral cortical and central cerebral atrophy. Moderate confluent white mat ter hypodensities in both cerebral hemispheres. Possible small area of encephalomalacia medial right occipital lobe is unchanged Trace mucosal thickening anterior ethmoid air cells. Mastoid air cells are well pneumatized. Orbits a nd globes are intact. 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 No acute intracranial abnormality seen. If symptoms persist, follow-up CT or MRI.
--- NOTE | 2022-05-05 14:16 | ED ---
General Adult HPI - General Chief complaint: Neuro Symptoms/Deficit Stated complaint: poss stroke Time Seen by Provider: 05/05/22 13:00 Source: patient, RN notes reviewed, old records reviewed Mode of arrival: wheelchair Limitations: no limitations - History of Present Illness Initial comments: Is an 86-year-old male presents emergency Department complaining of some neurologic deficits. Patient states about 45 minutes prior to arrival he started having a headache and some pain in the posterior aspect of his neck at this pace of the skull. Patient states he also had slurred speech and some confusion. Patient also states he had some nausea. Patient states all his symptoms have resolved prior to his arrival. Patient denies any recent fever chills. Patient denies any chest pain difficulty breathing or palpitations. Patient states in February he was diagnosed with a small brain bleed and had similar symptoms at that time. Patient denies any abdominal pain patient denies any recent nausea vomiting diarrhea. Patient states currently he is at his baseline he has no complaints - Related Data Home Medications Medication Instructions Recorded Confirmed Omeprazole 40 mg PO DAILY 02/14/19 05/05/22 Calcium Citrate/Vitamin D3 1 tab PO DAILY 02/23/20 05/05/22 [Citracal + D Maximum Caplet] Metoprolol Tartrate [Lopressor] 12.5 mg PO BID 02/23/20 05/05/22 Vitamin B Complex 1 cap PO CLAUDIO 02/23/20 05/05/22 Montelukast Sodium [Singulair] 10 mg PO HS 03/15/20 05/05/22 Cyanocobalamin (Vitamin B-12) 1,000 mcg PO MOTUWETHFRSA 02/01/22 05/05/22 [Vitamin B-12] Famotidine 20 mg PO BID PRN 02/01/22 05/05/22 Tamsulosin [Flomax] 0.4 mg PO HS 02/01/22 05/05/22 amLODIPine [Norvasc] 5 mg PO DAILY 02/01/22 05/05/22 Aspirin EC [Ecotrin Low Dose] 81 mg PO HS 05/05/22 05/05/22 Previous Rx's Medication Instructions Recorded Atorvastatin [Lipitor] 40 mg PO HS #30 tablet 02/04/22 Allergies Allergy/AdvReac Type Severity Reaction Status Date / Time atenolol Allergy Syncope Verified 05/05/22 14:09 Penicillins Allergy Rash/Hives Verified 05/05/22 14:09 prednisone Allergy Rash/Hives Verified 05/05/22 14:09 Review of Systems ROS Statement: Those systems with pertinent positive or pertinent negative responses have been documented in the HPI. ROS Other: All systems not noted in ROS Statement are negative. Past Medical History Past Medical History: Asthma, Coronary Artery Disease (CAD), Chest Pain / Angina, GERD/Reflux, GI Bleed, Hearing Disorder / Deafness, Hyperlipidemia, Hypertension, Liver Disease, Osteoarthritis (OA) Additional Past Medical History / Comment(s): Recurrent SBO d/t adhesions with conservative treatment and surgical treatment, mild leaky heart valve, bleeding ulcer/lower GI bleed many years ago with exsanguination and stayed in ICU/had transfusions then another less severe lower GI bleed a few years later, upper GI bleed, duodenal ulcer, hiatal hernia, hepatitis C d/t blood transfusion-2nd treatment successful, some recent short term memory issues/tremors in hands and balance issues past few months being worked up, constipation, diverticulitis and past pre cancerous polypectomies-last colonoscopy was normal in 2018, low back pain, L shoulder pain, 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 History of Any Multi-Drug Resistant Organisms: None Reported Past Surgical History: Bowel Resection, Cholecystectomy, Heart Catheterization With Stent, Orthopedic Surgery Additional Past Surgical History / Comment(s): 06/2018 PCI with stent, 1999 PCI with 2 stents, laparotomy with lysis of adhesions, R rotator cuff repair, R knee arthroscopy, R upper chest lipoma removed, bilateral cataract removals/lens implants, EGD and colonoscopies with pre cancerous polypectomies-last colonoscopy in 2018 was normal per pt. Past Anesthesia/Blood Transfusion Reactions: Blood Transfusion Reaction Additional Past Anesthesia/Blood Transfusion Reaction / Comment(s): CONTRACTED HEP C FROM A BLOOD TRANSFUSION 35-40 YEARS AGO. Date of Last Stent Placement:: JUN 2018 Past Psychological History: No Psychological Hx Reported Smoking Status: Former smoker Past Alcohol Use History: None Reported Past Drug Use History: None Reported - Past Family History Mother Family Medical History: Cancer Additional Family Medical History / Comment(s): Other at age 80 from acute kidney injury following surgery. Patient had bladder suspension surgery and she developed to have possibly uterine cancer however she ended up with renal failure refused hemodialysis Father Family Medical History: Cancer, Deep Vein Thrombosis (DVT), Pulmonary Embolus Additional Family Medical History / Comment(s): LUNG CANCER. Father in his mid 60s due to blood clots with history of bladder cancer . The cause of pulmonary embolism. Brother(s) Family Medical History: Cancer, Coronary Artery Disease (CAD) Additional Family Medical History / Comment(s): Patient has one brother with history of non-Hodgkin's lymphoma diagnosed 15 YEARS AGO. He does not have any sisters. He has adult children with no major medical problem basically 2 sons and a daughter. General Exam - General Exam Comments Initial Comments: GENERAL: Patient is well-developed and well-nourished. Patient is nontoxic and well- hydrated and is in mild distress. ENT: Neck is soft and supple. No significant lymphadenopathy is noted. Oropharynx is clear. Moist mucous membranes. Neck has full range of motion without eliciting any pain. EYES: The sclera were anicteric and conjunctiva were pink and moist. Extraocular movements were intact and pupils were equal round and reactive to light. Eyelids were unremarkable. PULMONARY: Unlabored respirations. Good breath sounds bilaterally. No audible rales rhonchi or wheezing was noted. CARDIOVASCULAR: There is a regular rate and rhythm without any murmurs gallops or rubs. ABDOMEN: Soft and nontender with normal bowel sounds. SKIN: Skin is clear with no lesions or rashes and otherwise unremarkable. NEUROLOGIC: Patient is alert and oriented x3. Cranial nerves II through XII are grossly i ntact. Motor and sensory are also intact. Normal speech, volume and content. Symmetrical smile. Finger to nose testing bilaterally was normal. Patient's NIH is 0 MUSCULOSKELETAL: Normal extremities with adequate strength and full range of motion. No lower extremity swelling or edema. No calf tenderness. LYMPHATICS: No significant lymphadenopathy is noted PSYCHIATRIC: Normal psychiatric evaluation. Limitations: no limitations Course Vital Signs 05/05/22 05/05/22 12:54 14:54 Temperature 98.1 F Pulse Rate 66 62 Respiratory 16 18 Rate Blood Pressure 139/76 139/86 O2 Sat by Pulse 94 L 96 Oximetry Medical Decision Making - Medical Decision Making EKG shows bradycardia at 55 bpm NV interval is 226 QRS is 80 QT interval is 420 QTC is 409 per patient's EKG shows no ST segment elevation or depression. Code stroke was called when the patient arrived I interviewed him. I spoke with the neurointerventionalist he agrees no intervention at this time CT of the brain shows no acute abnormalities. CT angiogram of the head and neck show no acute abnormality. I will begin the room the patient was still symptom free at this point time. I spoke with [facility] he agreed to admit the patient admitted the patient wrote admitting orders. I consult the neurology - Lab Data Result diagrams: 05/05/22 13:17 05/05/22 13:17 Lab Results 05/05/22 05/05/22 05/05/22 Range/Units 13:16 13:17 13:17 WBC 10.3 (3.8-10.6) k/uL RBC 4.90 (4.30-5.90) m/uL Hgb 15.5 (13.0-17.5) gm/dL Hct 45.2 (39.0-53.0) % MCV 92.4 (80.0-100.0) fL MCH 31.7 (25.0-35.0) pg MCHC 34.3 (31.0-37.0) g/dL RDW 12.9 (11.5-15.5) % Plt Count 223 (150-450) k/uL MPV 8.4 Neutrophils % 55 % Lymphocytes % 26 % Monocytes % 8 % Eosinophils % 7 % Basophils % 1 % Neutrophils # 5.7 (1.3-7.7) k/uL Lymphocytes # 2.6 (1.0-4.8) k/uL Monocytes # 0.8 (0-1.0) k/uL Eosinophils # 0.7 (0-0.7) k/uL Basophils # 0.1 (0-0.2) k/uL PT 10.6 (9.0-12.0) sec INR 1.0 (<1.2) APTT 23.8 (22.0-30.0) sec Sodium (137-145) mmol/L Potassium (3.5-5.1) mmol/L Chloride (98-107) mmol/L Carbon Dioxide (22-30) mmol/L Anion Gap mmol/L BUN (9-20) mg/dL Creatinine (0.66-1.25) mg/dL Est GFR (CKD-EPI)AfAm (>60 ml/min/1.73 sqM) Est GFR (CKD-EPI)NonAf (>60 ml/min/1.73 sqM) Glucose (74-99) mg/dL POC Glucose (mg/dL) 136 H (70-110) mg/dL POC Glu Hay Chopper ID Claudia Chung Calcium (8.4-10.2) mg/dL Total Bilirubin (0.2-1.3) mg/dL AST (17-59) U/L ALT (4-49) U/L Alkaline Phosphatase (38-126) U/L Troponin I (0.000-0.034) ng/mL Total Protein (6.3-8.2) g/dL Albumin (3.5-5.0) g/dL 05/05/22 05/05/22 Range/Units 13:17 13:17 WBC (3.8-10.6) k/uL RBC (4.30-5.90) m/uL Hgb (13.0-17.5) gm/dL Hct (39.0-53.0) % MCV (80.0-100.0) fL MCH (25.0-35.0) pg MCHC (31.0-37.0) g/dL RDW (11.5-15.5) % Plt Count (150-450) k/uL MPV Neutrophils % % Lymphocytes % % Monocytes % % Eosinophils % % Basophils % % Neutrophils # (1.3-7.7) k/uL Lymphocytes # (1.0-4.8) k/uL Monocytes # (0-1.0) k/uL Eosinophils # (0-0.7) k/uL Basophils # (0-0.2) k/uL PT (9.0-12.0) sec INR (<1.2) APTT (22.0-30.0) sec Sodium 137 (137-145) mmol/L Potassium 4.3 (3.5-5.1) mmol/L Chloride 105 (98-107) mmol/L Carbon Dioxide 20 L (22-30) mmol/L Anion Gap 12 mmol/L BUN 18 (9-20) mg/dL Creatinine 1.26 H (0.66-1.25) mg/dL Est GFR (CKD-EPI)AfAm 60 (>60 ml/min/1.73 sqM) Est GFR (CKD-EPI)NonAf 52 (>60 ml/min/1.73 sqM) Glucose 142 H (74-99) mg/dL POC Glucose (mg/dL) (70-110) mg/dL POC Glu Hay Chopper ID Calcium 9.1 (8.4-10.2) mg/dL Total Bilirubin 0.7 (0.2-1.3) mg/dL AST 31 (17-59) U/L ALT 30 (4-49) U/L Alkaline Phosphatase 79 (38-126) U/L Troponin I <0.012 (0.000-0.034) ng/mL Total Protein 6.5 (6.3-8.2) g/dL Albumin 4.2 (3.5-5.0) g/dL Critical Care Time Critical Care Time: Yes Total Critical Care Time: 35 Disposition Clinical Impression: Transient cerebral ischemia Disposition: ADMITTED IP TO THIS HOSP Referrals: Steven Rice MD [Primary Care Provider] - 1-2 days Time of Disposition: 15:42
--- NOTE | 2022-05-05 14:18 | XR ---
EXAMINATION TYPE: XR chest 2V DATE OF EXAM: 05/05/2022 COMPARISON: 02/01/2022 TECHNIQUE: PA and lateral views submitted. HISTORY: Altered mental status FINDINGS: The lungs are clear and there is no pneumothorax, pleural effusion, or focal pneumonia. Limited ins piration with diffuse osteopenia. Heart size normal with atherosclerotic change aorta. 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 Somewhat coarsened interstitium. IMPRESSION: 1. No acute process. Correlate for COPD and chronic interstitial lung disease
[2022-05-05 14:20] LABS: Basophils # (A) 0.1 k/uL (0-0.2); Basophils % (A) 1 %; Eosinophils # (A) 0.7 k/uL (0-0.7); Eosinophils % (A) 7 %; HCT 45.2 % (39.0-53.0); HGB 15.5 gm/dL (13.0-17.5); Lymphocytes # (A) 2.6 k/uL (1.0-4.8); Lymphocytes % (A) 26 %; MCH 31.7 pg (25.0-35.0); MCHC 34.3 g/dL (31.0-37.0); MCV 92.4 fL (80.0-100.0); Mean Platelet Volume 8.4; Monocytes # (A) 0.8 k/uL (0-1.0); Monocytes % (A) 8 %; Neutrophils # (A) 5.7 k/uL (1.3-7.7); Neutrophils % (A) 55 %; Platelet Count 223 k/uL (150-450); RDW 12.9 % (11.5-15.5); WBC 10.3 k/uL (3.8-10.6)
[2022-05-05 14:28] LABS: Partial Thromboplastin Time 23.8 sec (22.0-30.0); Prothrombin Time 10.6 sec (9.0-12.0)
[2022-05-05 14:30] LABS: Albumin 4.2 g/dL (3.5-5.0); Calcium 9.1 mg/dL (8.4-10.2); Potassium 4.3 mmol/L (3.5-5.1)
[2022-05-05 14:31] LABS: Total Bilirubin 0.7 mg/dL (0.2-1.3)
[2022-05-05 15:05] LABS: Total Protein 6.5 g/dL (6.3-8.2)
[2022-05-05] MEDS ORDERED: ASPIRIN 325 MG TAB PO STA (15:43)
--- NOTE | 2022-05-05 16:06 | CT ---
EXAMINATION TYPE: CT angio head neck DATE OF EXAM: 05/05/2022 COMPARISON: 02/01/2022 HISTORY: 86-year-old male Neuro deficits, acute, code stroke TECHNIQUE: Contiguous axial scanning of the head and neck performed with IV Contrast, patient injecte d with 65 mL of Isovue 370. Coronal/sagittal MIP reconstructions performed. 3-D reconstructions gener ated on a dedicated workstation. CT DLP: 539.7 mGycm Automated exposure control for dose reduction was used. FINDINGS: NECK: Large caliber to the main right and left pulmonary arteries up to 3.0 cm suggesting underlying pulmon consuelo arterial hypertension. Mild atherosclerotic arch calcifications with conventional arch vessel bra nching anatomy. The vertebral arteries are codominant and patent throughout the course. The graft the right common ca rotid artery is patent. Mild atherosclerotic calcification at the right carotid bifurcation. Right internal carotid artery is patent by NASCET criteria. Left common carotid artery is patent. Mild apical scarring calcification left carotid bulb. Changes result in minimal, 15% narrowing by NASCET criteria at the proximal left ICA. HEAD: Mild to moderate atherosclerotic narrowing at the proximal V4 segment right vertebral artery. Otherwi se, the vertebral and basilar arteries are patent as is the remainder of the posterior circulation. Mild atherosclerotic calcifications at bilateral carotid siphons with mild atherosclerotic narrowing along the supraclinoid origins of the bilateral ICAs. Remainder of the anterior circulation is also w idely patent. No aneurysmal change is seen. IMPRESSION: 1. NECK: VERY MILD ATHEROSCLEROTIC CHANGE AT THE CAROTID BIFURCATIONS. NO HEMODYNAMICALLY SIGNIFICANT VERTEBRAL OR CAROTID ARTERY STENOSIS ON EITHER SIDE. 2. HEAD: MILD TO MODERATE ATHEROSCLEROTIC NARROWING PROXIMAL V4 SEGMENT RIGHT VERTEBRAL ARTERY. MILD ATHEROSCLEROTIC NARROWING SUPRACLINOID PORTIONS OF BOTH ICA's. OTHERWISE, NO LARGE VESSEL INTRACRANIA L ARTERIAL OCCLUSION, SIGNIFICANT STENOSIS, OR ANEURYSMAL CHANGE IS SEEN.
[2022-05-05] MEDS ORDERED: FAMOTIDINE 20 MG TAB PO PRN (17:38)
[2022-05-05] MEDS ORDERED: NON FORMULARY DRUG (Aspirin Ec 81 MG Tablet) PO SCH (21:00)
[2022-05-05] MEDS: TAMSULOSIN 0.4 MG CAP.ER.24H PO SCH (21:39)
[2022-05-05] MEDS: ATORVASTATIN 40 MG TAB PO SCH (21:39)
[2022-05-05] MEDS: MONTELUKAST 10 MG TAB PO SCH (21:39)
[2022-05-05] MEDS: METOPROLOL TARTRATE 12.5 MG TAB PO SCH (21:47)
[2022-05-06] MEDS: amLODIPine 5 MG TAB PO SCH (08:27)
[2022-05-06] MEDS: CYANOCOBALAMIN 500 MCG TAB PO SCH (08:27)
[2022-05-06] MEDS: METOPROLOL TARTRATE 12.5 MG TAB PO SCH ×2 (08:27→20:29)
[2022-05-06] MEDS ORDERED: ASPIRIN 325 MG TAB PO SCH (09:00)
--- NOTE | 2022-05-06 09:24 | P.CNNES ---
History of Present Illness Consult date: 05/06/22 Requesting physician: Chris Dugan Reason for Consult: tia History of Present Illness: This is an 86-year-old gentleman with history of probable TIA on 01/2022 (slurred speech), probable small punctate hyperdensity in left external capsule on 01/[address], hypertension, remote history of GI bleed, CAD s/p stent, hpe rlipidemia who presented to the emergency department on 05/06/2022 for episode of speech difficulty. He stated yesterday he was watching television and around 12pm, he noticed he could not make sense of writing on t.v. and when he tried to read it out he feel he speeh was off, garbled and not making sense. His episode last 1 hours. After he has speech difficulty he noticed headache throughout h ead, sharp, then noticed it lateralized to bilateral frontal then left frontal without radiation. Has photophobia but denies any phonophobia, nausea or vomiting. Denies any focal weakness. The headache was intermittent yesterday lasting few second on and off. Currently he feels back to baseline. He is taking ASA 81mg daily and Lipitor 20mg daily. Denies tobacco use. He stated his symptoms were similar to 01/2022 (speech difficulty) hospital visit. In which he was told possible he had small brain bleed. Patient stated he followed-up with Dr. Andrade after his prior TIA in 01/2022 and had routine EEG and was told had possible slowing over the left side. Of note, upon reviewing medical records, patient was last seen by Dr. Magana in our facility for speech difficulty (slurred speech) last on 02/01/2022. It was felt he has probable TIA and reorted CT head reaveal small punctate hyperdensity involving left external capsule propable small intraparechymal hemorrhage. No ischemic stroke on MRI. Please refer to Dr. Arreola's notes for further details. During this hospital visit: Stroke code was activated by ED team. His NIH was 0. No IV tpa since resolution of his symptoms and the risk of tpa outweighted the benefits. CT brain reported as similar mild to moderate generalized atrophy and moderate confluent burden of chronic small vessel ischemic disease. No acute intracrania l abnormality seen. I personally reviewed CT and agree with report. CTA head is reported as mild to moderate atherosclerotic narrowing proximal V4 segment right vertebral artery. Mild atherosclerotic anarrowing supraclinoid portions of both ICA's. Otherwise no large vessel intracranial arterial o cclusion, significant stenosis or aneurysmal change is seen. I personally could not reviewed CTA of head or neck because of computer clitch. CTA neck is reported as very mild atherosclerotic change at the carotid bifurcations. No hemodynamically significant verterbral or carotid artery stenosis on either side. EKG is reported as sinurs bradycardia with first degree AV block. Left axis deviation. Review of Systems Review of system: The 12 point system was reviewed and apparent positive and negative per HPI. Past Medical History Past Medical History: Asthma, Coronary Artery Disease (CAD), Chest Pain / An angi, GERD/Reflux, GI Bleed, Hearing Disorder / Deafness, Hyperlipidemia, Hypertension, Liver Disease, Osteoarthritis (OA) Additional Past Medical History / Comment(s): Recurrent SBO d/t adhesions with conservative treatment and surgical treatment, mild leaky heart valve, bleeding ulcer/lower GI bleed many years ago with exsanguination and stayed in ICU/had transfusions then another less severe lower GI bleed a few years later, upper GI bleed, duodenal ulcer, hiatal hernia, hepatitis C d/t blood transfusion-2nd treatment successful, some recent short term memory issues/tremors in hands and balance issues past few months being worked up, constipation, diverticulitis and past pre cancerous polypectomies-last colonoscopy was normal in 2018, low back pain, L shoulder pain, 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 History of Any Multi-Drug Resistant Organisms: None Reported Past Surgical History: Bowel Resection, Cholecystectomy, Heart Catheterization With Stent, Orthopedic Surgery Additional Past Surgical History / Comment(s): 06/2018 PCI with stent, 1999 PCI with 2 stents, laparotomy with lysis of adhesions, R rotator cuff repair, R knee arthroscopy, R upper chest lipoma removed, bilateral cataract removals/lens implants, EGD and colonoscopies with pre cancerous polypectomies-last colonoscopy in 2018 was normal per pt. Past Anesthesia/Blood Transfusion Reactions: Blood Transfusion Reaction Additional Past Anesthesia/Blood Transfusion Reaction / Comment(s): CONTRACTED HEP C FROM A BLOOD TRANSFUSION 35-40 YEARS AGO. Date of Last Stent Placement:: JUN 2018 Past Psychological History: No Psychological Hx Reported Additional Psychological History / Comment(s): Pt resides with his spouse. Smoking Status: Former smoker Past Alcohol Use History: None Reported Additional Past Alcohol Use History / Comment(s): Patient was a smoker from [id number]. He drinks a glass of wine on special occasions. Past Drug Use History: None Reported - Past Family History Mother Family Medical History: Cancer Additional Family Medical History / Comment(s): Other at age 80 from acute kidney injury following surgery. Patient had bladder suspension surgery and she developed to have possibly uterine cancer however she ended up with renal fa ilure refused hemodialysis Father Family Medical History: Cancer, Deep Vein Thrombosis (DVT), Pulmonary Embolus Additional Family Medical History / Comment(s): LUNG CANCER. Father in his mid 60s due to blood clots with history of bladder cancer . The cause of pulmonary embolism. Brother(s) Family Medical History: Cancer, Coronary Artery Disease (CAD) Additional Family Medical History / Comment(s): Patient has one brother with history of non-Hodgkin's lymphoma diagnosed 15 YEARS AGO. He does not have any sisters. He has adult children with no major medical problem basically 2 sons and a daughter. Medications and Allergies Home Medications Medication Instructions Recorded Confirmed Type Omeprazole 40 mg PO DAILY 02/14/19 05/05/22 History Calcium Citrate/Vitamin D3 1 tab PO DAILY 02/23/20 05/05/22 History [Citracal + D Maximum Caplet] Metoprolol Tartrate [Lopressor] 12.5 mg PO BID 02/23/20 05/05/22 History Vitamin B Complex 1 cap PO CLAUDIO 02/23/20 05/05/22 History Montelukast Sodium [Singulair] 10 mg PO HS 03/15/20 05/05/22 History Cyanocobalamin (Vitamin B-12) 1,000 mcg PO MOTUWETHFRSA 02/01/22 05/05/22 History [Vitamin B-12] Famotidine 20 mg PO BID PRN 02/01/22 05/05/22 History Tamsulosin [Flomax] 0.4 mg PO HS 02/01/22 05/05/22 History amLODIPine [Norvasc] 5 mg PO DAILY 02/01/22 05/05/22 History Atorvastatin [Lipitor] 40 mg PO HS #30 tablet 02/04/22 05/05/22 Rx Aspirin EC [Ecotrin Low Dose] 81 mg PO HS 05/05/22 05/05/22 History Allergies Allergy/AdvReac Type Severity Reaction Status Date / Time atenolol Allergy Syncope Verified 05/05/22 14:09 Penicillins Allergy Rash/Hives Verified 05/05/22 14:09 prednisone Allergy Rash/Hives Verified 05/05/22 14:09 Physical Examination - Vital Signs Vital Signs: Vital Signs Temp Pulse Pulse Resp BP BP BP 05/06/22 07:00 97.8 F 79 16 125/77 05/06/22 03:13 97.9 F 79 18 126/76 05/05/22 20:00 98.5 F 56 L 18 137/79 05/05/22 17:48 98.2 F 56 L 18 157/71 05/05/22 16:58 59 L 18 138/84 05/05/22 14:54 62 18 139/86 05/05/22 12:54 98.1 F 66 16 139/76 Pulse Ox 05/06/22 07:00 93 L 05/06/22 03:13 93 L 05/05/22 20:00 96 05/05/22 17:48 97 05/05/22 16:58 97 05/05/22 14:54 96 05/05/22 12:54 94 L Intake and Output 05/05/22 05/06/22 05/06/22 22:59 06:59 14:59 Intake Total 240 Balance 240 Intake: Oral 240 Other: # Voids 2 2 Weight 73.482 kg GENERAL: The patient is sitting at side of bed having his breakfast and is not in acute distress. CHEST: The heart rate is regular rate rhythm. No murmurs to auscultation. LUNG: Clear to auscultation bilaterally no wheezing noted throughout. Not labored breathing. ABDOMEN/GI: Bowel sounds present in all 4 quadrants. No tenderness to palpation throughout. NEUROLOGICAL: Higher mental function: The patient is awake, alert, oriented to self, place and time. Patient is following commands. No aphasia and no neglect. Cranial nerves: The pupils are round, equal and reactive to light and accommodation. Visual zimmerman are full to confrontation throughout. Extraocular movement is intact no nystagmus is noted. Facial sensation is normal to touch throughout. The facial strength is normal throughout. Hearing is mildly decreased bilaterally to hand rub. Tongue is midline and moved [id number] without any difficulty. No dysarthria is noted. Shoulder shrug is normal bilaterally. Motor: The strength is 5 over 5 throughout. Normal tone and bulk. Cerebellum: Normal finger to nose bilaterally. Sensation: Sensation is normal to touch throughout. Reflexes (right/left): 1+ throughout. Plantars are mute bilaterally. Results - Laboratory Findings CBC and BMP: 05/05/22 13:17 05/05/22 13:17 Abnormal Lab Findings: Abnormal Labs 05/05/22 05/05/22 13:16 13:17 Carbon Dioxide 20 L Creatinine 1.26 H Glucose 142 H POC Glucose (mg/dL) 136 H Assessment and Plan Assessment: Likely Transient ischemic attack (speech difficulty/garbled speech) History of Probable TIA on 01/2022 (speech difficulty) History of History of probable small punctate hyperdensity in left external capsule on 01/[address] Hypertension Remote history of GI bleed History of CAD s/p stent Hperlipidemia Plan: * I stopped ASA and started on Plavix 75mg daily (not dual antiplatelets because of history of GI Bleed and increase risk of bleed). Is currently on Lipitor 40mg qhs for secondary stroke prophylaxis. * Ordered MRI Brain w/o (with SWI) to rule out any ischemic or hemorrhagic stroke. * Ordered limited 2D echo. * Lipid panel is ordered. * Continue neuro checks. * Placed on cardiac monitoring. * PT, OT and INTEGRITY CONSULTANT are consulted. * Will defer the rest of medical management to the primary team. * For DVT prophylaxis: Started on subq heparin 5000U every 8 hours. * If the patient continues to have same episodes of slurring of speech, recommend prolonged EEG (ambulatory EEG) as outpatient to rule out seizure or epileptiform discharges that can manifest his symptoms. He is following-up with his neurologist (Dr. Andrade) and to follow-up as outpatient within 1-2 weeks. The plan is discussed with patient and his nurse. Thank you for the consultation. Trevor Mohamud M.D. Neuro-Hospitalist Time with Patient: Greater than 30
[2022-05-06] MEDS: CLOPIDOGREL 75 MG TAB PO SCH (10:06)
[2022-05-06 10:32] LABS: Chol/HDL Ratio 3.04 Ratio; LDL Cholesterol,Calculated 54.1 mg/dL (0.0-131.0)
--- NOTE | 2022-05-06 13:22 | CA ---
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 Stroke. Cardiac Hx: Limited: Repeat Echo Technical Quality: Contrast 1: Total Dose (mL): Contrast 2: Total Dose (mL): MEASUREMENTS (Male / Female) Normal Values FINDINGS Left Ventricle Left ventricular ejection fraction is estimated at 50-55%. Right Ventricle Normal right ventricular size Right Atrium Left Atrium Mitral Valve Mild mitral regurgitation Aortic Valve Tricuspid Valve Trace tricuspid regurgitation Pulmonic Valve Pericardium No pericardial effusion Aorta CONCLUSIONS Left ventricular ejection fraction 50-55% Mild mitral regurgitation Trace tricuspid regurgitation No pericardial effusion Previewed by: Dr. Guzman Perdomo DO (Electronically Signed) Final Date: 06 May 2022 13:21
[2022-05-06] MEDS: ACETAMINOPHEN TAB 325 MG TAB PO PRN (14:56)
[2022-05-06] MEDS: HEPARIN SODIUM,PORCINE/PF 5,000 UNIT/0.5 ML SYRINGE SQ SCH ×2 (14:57→20:29)
[2022-05-06] MEDS: MONTELUKAST 10 MG TAB PO SCH (20:29)
[2022-05-06] MEDS: ATORVASTATIN 40 MG TAB PO SCH (20:29)
[2022-05-06] MEDS: TAMSULOSIN 0.4 MG CAP.ER.24H PO SCH (20:29)
--- NOTE | 2022-05-06 23:25 | P.HPIM ---
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 Patient states that he was at home and watching television suddenly felt like his speech is off and trouble finding words and garbled. Patient called her daughter and was told to go to ER. Epis ode lasted about 1 to 1-1/2-hour and by the time he comes to the ER patient was able to speak coherently. Patient had a similar episode about 5 to 6 weeks ago and had stroke work-up done, was seen by primary care physician. Patient was told he had a small brain bleed. Patient was complaining of headache this morning. Denied any nausea or vomiting. Denied any focal weakness. No weakness or seizures. No bladder or bowel incontinence. On admission CT head showed similar mild to moderate generalized atrophy and moderate complaint but did not chronic small vessel ischemic disease. No acute intracranial abnormality seen. CT angiogram of the head and neck showed mild to moderate atherosclerotic narrowing in the proximal V4 segment right vertebral artery. Otherwise the vertebral and basilar arteries are patent. EKG showed sinus bradycardia with first-degree AV block. Laboratory data showed WC 10.3 hemoglobin 13.5 and platelets 223 Sodium 137 potassium 4.3 chloride 105 BUN 18 and creatinine 1.26 and blood sugar is 142 liver enzymes are not elevated troponin x1-20 LDL 54 Recent work-up for TSH B12, B6 within normal limits. Review of Systems Constitutional: Patient denies any fever or chills . no Generalized weakness. Abdomen: Patient denied any nausea or vomiting or abd. pain Cardiovascular: Patient denies any chest pain or short of breath no palpitatio ns. Respiratory: patient denied any cough . no sputum production. No shortness of breath Neurologic: Patient denied any numbness or tingling headache. Musculoskeletal: Patient denies any complaints of joint swelling or deformity. Skin: Negative Psychiatric: Negative Endocrine: No heat or cold intolerance. No recent weight gain. Genitourinary: No dysuria or hematuria. All other 14 point ROS negative except the above Past Medical History Past Medical History: Asthma, Coronary Artery Disease (CAD), Chest Pain / Angina, GERD/Reflux, GI Bleed, Hearing Disorder / Deafness, Hyperlipidemia, Hypertension, Liver Disease, Osteoarthritis (OA) Additional Past Medical History / Comment(s): Recurrent SBO d/t adhesions with conservative treatment and surgical treatment, mild leaky heart valve, bleeding ulcer/lower GI bleed many years ago with exsanguination and stayed in ICU/had transfusions then another less severe lower GI bleed a few years later, upper GI bleed, duodenal ulcer, hiatal hernia, hepatitis C d/t blood transfusion-2nd treatment successful, some recent short term memory issues/tremors in hands and balance issues past few months being worked up, constipation, diverticulitis and past pre cancerous polypectomies-last colonoscopy was normal in 2018, low back pain, L shoulder pain, gout-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 History of Any Multi-Drug Resistant Organisms: None Reported Past Surgical History: Bowel Resection, Cholecystectomy, Heart Catheterization With Stent, Orthopedic Surgery Additional Past Surgical History / Comment(s): 06/2018 PCI with stent, 1999 PCI with 2 stents, laparotomy with lysis of adhesions, R rotator cuff repair, R knee arthroscopy, R upper chest lipoma removed, bilateral cataract removals/lens implants, EGD and colonoscopies with pre cancerous polypectomies-last colonoscopy in 2018 was normal per pt. Past Anesthesia/Blood Transfusion Reactions: Blood Transfusion Reaction Additional Past Anesthesia/Blood Transfusion Reaction / Comment(s): CONTRACTED HEP C FROM A BLOOD TRANSFUSION 35-40 YEARS AGO. Date of Last Stent Placement:: JUN 2018 Past Psychological History: No Psychological Hx Reported Additional Psychological History / Comment(s): Pt resides with his spouse. Smoking Status: Former smoker Past Alcohol Use History: None Reported Additional Past Alcohol Use History / Comment(s): Patient was a smoker from [id number]. He drinks a glass of wine on special occasions. Past Drug Use History: None Reported - Past Family History Mother Family Medical History: Cancer Additional Family Medical History / Comment(s): Other at age 80 from acute kidney injury following surgery. Patient had bladder suspension surgery and she developed to have possibly uterine cancer however she ended up with renal failure refused hemodialysis Father Family Medical History: Cancer, Deep Vein Thrombosis (DVT), Pulmonary Embolus Additional Family Medical History / Comment(s): LUNG CANCER. Father in his mid 60s due to blood clots with history of bladder cancer . The cause of pulmonary embolism. Brother(s) Family Medical History: Cancer, Coronary Artery Disease (CAD) Additional Family Medical History / Comment(s): Patient has one brother with history of non-Hodgkin's lymphoma diagnosed 15 YEARS AGO. He does not have any sisters. He has adult children with no major medical problem basically 2 sons and a daughter. Medications and Allergies Home Medications Medication Instructions Recorded Confirmed Type Omeprazole 40 mg PO DAILY 02/14/19 05/05/22 History Calcium Citrate/Vitamin D3 1 tab PO DAILY 02/23/20 05/05/22 History [Citracal + D Maximum Caplet] Metoprolol Tartrate [Lopressor] 12.5 mg PO BID 02/23/20 05/05/22 History Vitamin B Complex 1 cap PO CLAUDIO 02/23/20 05/05/22 History Montelukast Sodium [Singulair] 10 mg PO HS 03/15/20 05/05/22 History Cyanocobalamin (Vitamin B-12) 1,000 mcg PO MOTUWETHFRSA 02/01/22 05/05/22 History [Vitamin B-12] Famotidine 20 mg PO BID PRN 02/01/22 05/05/22 History Tamsulosin [Flomax] 0.4 mg PO HS 02/01/22 05/05/22 History amLODIPine [Norvasc] 5 mg PO DAILY 02/01/22 05/05/22 History Atorvastatin [Lipitor] 40 mg PO HS #30 tablet 02/04/22 05/05/22 Rx Aspirin EC [Ecotrin Low Dose] 81 mg PO HS 05/05/22 05/05/22 History Allergies Allergy/AdvReac Type Severity Reaction Status Date / Time atenolol Allergy Syncope Verified 05/05/22 14:09 Penicillins Allergy Rash/Hives Verified 05/05/22 14:09 prednisone Allergy Rash/Hives Verified 05/05/22 14:09 Physical Exam Vitals: Vital Signs Temp Pulse Pulse Resp BP BP BP 05/06/22 07:00 97.8 F 79 16 125/77 05/06/22 03:13 97.9 F 79 18 126/76 05/05/22 20:00 98.5 F 56 L 18 137/79 05/05/22 17:48 98.2 F 56 L 18 157/71 05/05/22 16:58 59 L 18 138/84 05/05/22 14:54 62 18 139/86 05/05/22 12:54 98.1 F 66 16 139/76 Pulse Ox 05/06/22 07:00 93 L 05/06/22 03:13 93 L 05/05/22 20:00 96 05/05/22 17:48 97 05/05/22 16:58 97 05/05/22 14:54 96 05/05/22 12:54 94 L Intake and Output 05/05/22 05/06/22 05/06/22 22:59 06:59 14:59 Intake Total 240 Balance 240 Intake: Oral 240 Other: # Voids 2 2 Weight 73.482 kg PHYSICAL EXAMINATION: Patient is lying in the bed comfortably, no acute distress, awake alert and oriented.. HEENT: Normocephalic. Neck is supple. Pupils reactive. Nostrils clear. Oral cavity is moist. Neck reveals no JVD, carotid bruits, or thyromegaly. CHEST EXAMINATION: Trachea is central. Symmetrical expansion. Lung zimmerman clear to auscultation and percussion. CARDIAC: Normal S1, S2 with no gallops. No murmurs ABDOMEN: Soft. Bowel sounds present. Nontender. No organomegaly. No abdominal bruits. Extremities: reveal no edema. No clubbing or cyanosis Neurologically awake, alert, oriented x3 with well-coordinated movements. No focal deficits noted Skin: No rash or skin lesions. Psychiatric: Coperative. Nonsuicidal, Musculoskeletal: No joint swelling or deformity. Normal range of motion. Results CBC & Chem 7: 05/05/22 13:17 05/05/22 13:17 Labs: Abnormal Lab Results - Last 24 Hours (Table) 05/05/22 05/05/22 Range/Units 13:16 13:17 Carbon Dioxide 20 L (22-30) mmol/L Creatinine 1.26 H (0.66-1.25) mg/dL Glucose 142 H (74-99) mg/dL POC Glucose (mg/dL) 136 H (70-110) mg/dL Thrombosis Risk Factor Assmnt - DVT/VTE Prophylaxis DVT/VTE Prophylaxis: Pharmacologic Prophylaxis ordered - Choose All That Apply Any of the Below Risk Factors Present?: Yes Each Factor Represents 1 point: Obesity (BMI >25) Other Risk Factors: Yes Each Risk Factor Represents 3 Points: Age 75 years or older Other congenital or acquired thrombophilia - If yes, enter type in comment: No Thrombosis Risk Factor Assessment Total Risk Factor Score: 4 Thrombosis Risk Factor Assessment Level: Moderate Risk Assessment and Plan Assessment: Acute TIA with speech difficulty History of recent TIA with similar symptoms Coronary artery disease history of stent placement History of GI bleed Hypertension Hyperlipidemia Hearing disorder/deafness Osteoarthritis Prior history of smoking history of duodenal ulcer DVT prophylaxis antiplatelets heparin subcu Plan: Patient will be continued on telemetry monitoring. Will be continued on Plavix and statins. Aspirin has been stopped. Neurology is on board. Stroke work-up including MRI of the brain and TTE was ordered. Current with home medications and follow-up closely. Continue with neurochecks. Prognosis is guarded. Time with Patient: Greater than 30
[2022-05-07] MEDS: ACETAMINOPHEN TAB 325 MG TAB PO PRN (05:23)
--- NOTE | 2022-05-07 05:28 | MR ---
EXAMINATION TYPE: MR brain wo con DATE OF EXAM: 05/06/2022 COMPARISON: 02/03/2022 HISTORY: Stroke, aphasia Multiplanar multiecho imaging of the brain performed without contrast. There is cerebral cortical atrophy. There is enlargement of the ventricles. There is no mass effect o r midline shift. No sign of intracranial hemorrhage. Diffusion images show no acute cortical infarct. There is thinning of the corpus callosum. There is coalescent increased signal in the periventricula r white matter on the T2 and FLAIR images measuring up to 1 cm in thickness. There are some small are as of patchy increased signal in the brainstem bilaterally measuring up to 4 mm on the FLAIR images. The cerebellum is intact. Corpus callosum is intact. No evidence of orbital mass. IMPRESSION: Cerebral atrophy and hydrocephalus. Extensive white matter changes likely related to microvascular is chemia and hydrocephalus. Demyelinating disease not excluded. No significant change compared to old exam with no acute cortical infarct.
[2022-05-07] MEDS: CLOPIDOGREL 75 MG TAB PO SCH (08:31)
[2022-05-07] MEDS: HEPARIN SODIUM,PORCINE/PF 5,000 UNIT/0.5 ML SYRINGE SQ SCH (08:31)
[2022-05-07] MEDS: METOPROLOL TARTRATE 12.5 MG TAB PO SCH (08:32)
[2022-05-07] MEDS: amLODIPine 5 MG TAB PO SCH (08:32)
[2022-05-07] MEDS: CYANOCOBALAMIN 500 MCG TAB PO SCH (08:37)
[2022-05-07 08:52] VITALS: BP 120/64; PULSE 80; RESP 17; TEMP 97.8
[2022-05-07] MEDS ORDERED: PANTOPRAZOLE 40 MG TABLET PO SCH (09:00)
[2022-05-07] MEDS ORDERED: IBUPROFEN 400 MG TAB PO STA (10:11)
[2022-05-07 11:01] LABS: Basophils # (A) 0.05 X 10*3/uL (0.00-0.10); Basophils % (A) 0.7 %; Eosinophils # (A) 0.32 X 10*3/uL (0.04-0.35); Eosinophils % (A) 4.4 %; HCT 42.6 % (39.6-50.0); HGB 14.4 g/dL (13.0-17.0); Immature Grans, Automated 0.6 %; Lymphocytes # (A) 0.49 X 10*3/uL (0.90-5.00); Lymphocytes % (A) 6.7 %; MCH 31.2 pg (27.0-32.0); MCHC 33.8 g/dL (32.0-37.0); MCV 92.2 fL (80.0-97.0); Mean Platelet Volume 10.5 fL (9.5-12.2); Monocytes # (A) 1.02 X 10*3/uL (0.20-1.00); NRBC Per 100 WBC 0 /100 WBCS (0.0-0.0); Neutrophils # (A) 5.34 X 10*3/uL (1.80-7.70); Neutrophils % (A) 73.6 %; Platelet Count 189 X 10*3/uL (140-440); RBC 4.62 X 10*6/uL (4.40-5.60); RDW 13.2 % (11.5-14.5); WBC 7.26 X 10*3/uL (4.50-10.00)
[2022-05-07 11:11] LABS: African American GFR (CKD) 64.6 (60.0-200.0); Anion Gap 8.3 mmol/L (10.00-18.00); BUN/Creat Ratio 15.21 Ratio (12.00-20.00); Blood Urea Nitrogen 18.1 mg/dL (9.0-27.0); Calcium 9.1 mg/dL (8.7-10.3); Carbon Dioxide 24.7 mmol/L (20.0-27.5); Non-African American GFR(CKD) 55.8 (60.0-200.0); Potassium 4.6 mmol/L (3.5-5.5)
--- NOTE | 2022-05-07 11:50 | P.PN ---
Subjective Progress Note Date: 05/07/22 The patient seen at bedside and he stated that in he has a low-grade fever and feels generalized weakness but otherwise no further episode of slurred speech, denies any focal weakness, any visual disturbance, headache. He does feel nauseous. Objective - Vital Signs Vital signs: Vital Signs Temp 97.8 F 05/07/22 07:00 Pulse 80 05/07/22 07:00 Resp 17 05/07/22 07:00 BP 120/64 05/07/22 07:00 Pulse Ox 97 05/07/22 07:00 FiO2 Intake & Output 05/06/22 05/07/22 05/07/22 18:59 06:59 18:59 Intake Total 300 Balance 300 Intake: Oral 300 Other: # Voids 2 2 - Exam GENERAL: The patient is sitting at side of bed having his breakfast and is not in acute distress.He seems lethargic. NEUROLOGICAL: Higher mental function: The patient is awake, alert, oriented to self, place and time. Patient is following commands. No aphasia and no neglect. Cranial nerves: The pupils are round, equal and reactive to light and accommodation. Visual zimmerman are full to confrontation throughout. Extraocular movement is intact no nystagmus is noted. Facial sensation is normal to touch throughout. The facial strength is normal throughout. Hearing is mildly decreased bilaterally to hand rub. Tongue is midline and moved [id number] wi thout any difficulty. No dysarthria is noted. Shoulder shrug is normal bilaterally. Motor: The strength is 5 over 5 throughout. Normal tone and bulk. Cerebellum: Normal finger to nose bilaterally. Sensation: Sensation is normal to touch throughout. Reflexes (right/left): 1+ throughout. Plantars are mute bilaterally. During this hospital visit: Stroke code was activated by ED team. His NIH was 0. No IV tpa since resolution of his symptoms and the risk of tpa outweighted the benefits. CT brain reported as similar mild to moderate generalized atrophy and moderate confluent burden of chronic small vessel ischemic disease. No acute intracranial abnormality seen. I personally reviewed CT and agree with report. CTA head is reported as mild to moderate atherosclerotic narrowing proximal V4 segment right vertebral artery. Mild atherosclerotic anarrowing supraclinoid portions of both ICA's. Otherwise no large vessel intracranial arterial occlusion, significant stenosis or aneurysmal change is seen. I personally could not reviewed CTA of head or neck because of computer clitch. CTA neck is reported as very mild atherosclerotic change at the carotid bifurcations. No hemodynamically significant verterbral or carotid artery stenosis on either side. EKG is reported as sinurs bradycardia with first degree AV block. Left axis deviation. 2D echo: Was reported as left ventricle ejection fraction of 50-55%. Mild mitral regurgitation. MRI of the brain is reported as cerebral atrophy and hydrocephalus. Extensive white matter changes likely related to microvascular ischemic and hydrocephalus. The mons disease not excluded. No significant change compared to old exam with no acute cortical infarct. I personally reviewed MRI Brain and he does not have acute or subacute stroke. He does not likely have demylinating disease but rather has microvascular disease. I do not subject any significant hydrocpehalus but rather he has appropriated atrophy generalized for his age. Lipid panel: TG 139, Cholestrol 122, LDL 54 and HDL 40. HbA1c: 5.9 - Labs CBC & Chem 7: 05/07/22 06:29 05/07/22 06:29 Labs: Abnormal Lab Results - Last 24 Hours (Table) 05/07/22 05/07/22 Range/Units 06:29 06:29 Lymphocytes # 0.49 L (0.90-5.00) X 10*3/uL Monocytes # 1.02 H (0.20-1.00) X 10*3/uL Anion Gap 8.30 L (10.00-18.00) mmol/L Est GFR (CKD-EPI)NonAf 55.8 L (60.0-200.0) Assessment and Plan Assessment: Likely Transient ischemic attack (speech difficulty/garbled speech). No acute or subacute stroke on MRI. History of Probable TIA on 01/2022 (speech difficulty) History of History of probable small punctate hyperdensity in left external capsule on 01/[address] Hypertension Remote history of GI bleed History of CAD s/p stent Hperlipidemia Plan: * I stopped ASA and started on Plavix 75mg daily (not dual antiplatelets because of history of GI Bleed and increase risk of bleed). Is currently on Lipitor 40mg qhs for secondary stroke prophylaxis. * MRI of the brain is reported as cerebral atrophy and hydrocephalus. Extensive white matter changes likely related to microvascular ischemic and hydroc ephalus. The mons disease not excluded. No significant change compared to old exam with no acute cortical infarct. I personally reviewed MRI Brain and he does not have acute or subacute stroke. He does not likely have demylinating disease but rather has microvascular disease. I do not subject a ny significant hydrocpehalus but rather he has appropriated atrophy generalized for his age. * Continue neuro checks. * On cardiac monitoring. * PT, OT and HIGH SPEED PRINTER OPERATOR are consulted. * Will defer the rest of medical management to the primary team. * For DVT prophylaxis: On subq heparin 5000U every 8 hours. * If the patient continues to have same episodes of slurring of speech, recommend prolonged EEG (ambulatory EEG) as outpatient to rule out seizure or epileptiform discharges that can manifest his symptoms. He is following-up with his neurologist (Dr. Andrade) and to follow-up as outpatient within 1-2 weeks. The plan is discussed with patient and his nurse. No additional work-up is needed otherwise. Please notify neurology team if any further concerns. Trevor Mohamud M.D. Neuro-Hospitalist Time with Patient: Less than 30
--- NOTE | 2022-05-08 19:03 | P.DS ---
Providers Date of admission: 05/05/22 15:46 Expected date of discharge: 05/07/22 Attending physician: Choco Travis Consults: 05/05/22 15:43 Consult Physician Routine Consulting Provider: Trevor Mohamud Consult Reason/Comments: TIA Do you want consulting provider notified?: Yes Primary care physician: Steven Rice [facility] Course: Final diagnosis Acute TIA with speech difficulty, improved History of recent TIA with similar symptoms Possible acute sinusitis with nasal congestion and headache Coronary artery disease history of stent placement History of GI bleed Hypertension Hyperlipidemia Hearing disorder/deafness Osteoarthritis Prior history of smoking history of duodenal ulcer DVT prophylaxis Discharge disposition Patient is being discharged in a stable condition with guarded prognosis to home . Patient will follow-up with Dr. Rice in the outpatient setting upon discharge. Patient is to continue with oral augmentin bid for 7 days. Total time taken is greater than 35 minutes. Hospital course This is a 86-year-old male who was recently admitted with weakness and concern for possible TIA/CVA. Patient had full neurologic workup including brain MRI which was not evident of any acute stroke. Patient with weakness although reports is up and walking. Patient is having headache and nasal congestion that he reports has been ongoing. Aleve given for headache with relief. Patient instructed to continue with claritin that he takes daily and will start augmentin bid for the next 7 days and encouraged to follow up with Dr. Rice. Patient to follow up with neurology as well. Currently no reports of chest pain, shortness of breath, or palpitations. Patient is afebrile. No reports of nausea or vomiting and patient is tolerating diet. Patient will be discharged home today. Guarded prognosis. Physical exam: Gen: This is a 86 year old male who is awake, alert and oriented x3. well developed, well nourished. HEENT: Head is atraumatic, normocephalic. Pupils equal, round. Sclerae is anicteric. NECK: Supple. No JVD. No lymphadenopathy. No thyromegaly. LUNGS: Clear to auscultation. No wheezes or rhonchi. No intercostal retractions. HEART: Regular rate and rhythm. No murmur. ABDOMEN: Soft. Bowel sounds are present. No masses. No tenderness. EXTREMITIES: No pedal edema. No calf tenderness. NEUROLOGICAL: Patient is awake, alert and oriented x3. Cranial nerves 2 through 12 are grossly intact. Please refer to medication reconciliation sheet for a list of medications. The impression and plan of care has been dictated by Kia Ramos, Nurse Practitioner as directed. Dr. Kavon MD I have performed a history and examination and MDM of this patient, discussed the same with the dictator, and agree with the dictator's assessment and plan as written ,documented as a scribe. Based on total visit time, I have performed more than 50% of the visit. Patient Condition at Discharge: Fair Plan - Discharge Summary Discharge Rx Participant: No New Discharge Prescriptions: New Amoxic-Pot Clav 875-125Mg [Augmentin 875-125] 1 tab PO Q12HR 7 Days #14 tab Clopidogrel [Plavix] 75 mg PO DAILY 30 Days #30 tab Continue Omeprazole 40 mg PO DAILY Metoprolol Tartrate [Lopressor] 12.5 mg PO BID Vitamin B Complex 1 cap PO CLAUDIO Calcium Citrate/Vitamin D3 [Citracal + D Maximum Caplet] 1 tab PO DAILY Montelukast Sodium [Singulair] 10 mg PO HS amLODIPine [Norvasc] 5 mg PO DAILY Famotidine 20 mg PO BID PRN PRN Reason: Heartburn Tamsulosin [Flomax] 0.4 mg PO HS Atorvastatin [Lipitor] 40 mg PO HS #30 tablet Cyanocobalamin (Vitamin B-12) [Vitamin B-12] 1,000 mcg PO MOTUWETHFRSA Discontinued Aspirin EC [Ecotrin Low Dose] 81 mg PO HS Discharge Medication List Omeprazole 40 mg PO DAILY 02/14/19 [History] Calcium Citrate/Vitamin D3 [Citracal + D Maximum Caplet] 1 tab PO DAILY 02/23/20 [History] Metoprolol Tartrate [Lopressor] 12.5 mg PO BID 02/23/20 [History] Vitamin B Complex 1 cap PO CLAUDIO 02/23/20 [History] Montelukast Sodium [Singulair] 10 mg PO HS 03/15/20 [History] Cyanocobalamin (Vitamin B-12) [Vitamin B-12] 1,000 mcg PO MOTUWETHFRSA 02/01/22 [History] Famotidine 20 mg PO BID PRN 02/01/22 [History] Tamsulosin [Flomax] 0.4 mg PO HS 02/01/22 [History] amLODIPine [Norvasc] 5 mg PO DAILY 02/01/22 [History] Atorvastatin [Lipitor] 40 mg PO HS #30 tablet 02/04/22 [Rx] Amoxic-Pot Clav 875-125Mg [Augmentin 875-125] 1 tab PO Q12HR 7 Days #14 tab 05/07/22 [Rx] Clopidogrel [Plavix] 75 mg PO DAILY 30 Days #30 tab 05/07/22 [Rx] Follow up Appointment(s)/Referral(s): Steven Rice MD [Primary Care Provider] - 1-2 days Activity/Diet/Wound Care/Special Instructions: Activity Limited until follow-up Continue taking medications as prescribed Follow-up with your neurologist as discussed and scheduled Follow-up primary care provider on discharge Continue with antibiotics until finished Continue taking your Singulair daily as scheduled Discharge Disposition: HOME SELF-CARE
== END 2022-05-07 15:09 | disposition home or self-care (01) ==
LOC: EC 12:51 → 6NMEDSUR 15:46
PROVIDERS: ADMIT Hospitalist; ATTEND Hospitalist
DX: G45.9 Transient cerebral ischemic attack, unspecified (principal); I25.10 Atherosclerotic heart disease of native coronary artery without angina pectoris; K21.9 Gastro-esophageal reflux disease without esophagitis; E78.5 Hyperlipidemia, unspecified; I10 Essential (primary) hypertension; K59.09 Other constipation; H91.8X9 Other specified hearing loss, unspecified ear; J44.9 Chronic obstructive pulmonary disease, unspecified; I70.0 Atherosclerosis of aorta; I44.0 Atrioventricular block, first degree; R00.1 Bradycardia, unspecified; M10.9 Gout, unspecified; G91.9 Hydrocephalus, unspecified; I08.1 Rheumatic disorders of both mitral and tricuspid valves; Z79.899 Other long term (current) drug therapy; Z90.49 Acquired absence of other specified parts of digestive tract; Z95.5 Presence of coronary angioplasty implant and graft; Z98.42 Cataract extraction status, left eye; Z98.41 Cataract extraction status, right eye; Z96.1 Presence of intraocular lens; Z87.891 Personal history of nicotine dependence; Z80.52 Family history of malignant neoplasm of bladder; Z84.1 Family history of disorders of kidney and ureter; Z80.1 Family history of malignant neoplasm of trachea, bronchus and lung; Z80.7 Family history of other malignant neoplasms of lymphoid, hematopoietic and related tissues; Z82.49 Family history of ischemic heart disease and other diseases of the circulatory system; Z79.82 Long term (current) use of aspirin; Z88.0 Allergy status to penicillin; Z88.8 Allergy status to other drugs, medicaments and biological substances; Z79.02 Long term (current) use of antithrombotics/antiplatelets
CPT/HCPCS: 96372 ×2; 96360; 99291; 36415; 93005; 93306; 97161; 97165; 92523; 80061; 80053; 80048; 84484; 85025 ×2; 85610; 85730; 83036; 71046; 70496; 70450; 70498; 70551; G0378 ×3; Q9967; J1644 ×2

== ENCOUNTER 2022-05-08 08:59 | Inpatient (IN) | payer MEDICARE ==
[2022-05-08] MEDS ORDERED: SODIUM CHLORIDE 0.9% 1,000 ML IV STA (09:21)
[2022-05-08] MEDS ORDERED: SODIUM CHLORIDE 0.9% 500 ML 500 ML IV STA (09:21)
[2022-05-08 10:02] LABS: Basophils # (A) 0.1 k/uL (0-0.2); Basophils % (A) 2 %; Eosinophils # (A) 0.1 k/uL (0-0.7); Eosinophils % (A) 1 %; HCT 46.9 % (39.0-53.0); HGB 16.5 gm/dL (13.0-17.5); Lymphocytes # (A) 0.6 k/uL (1.0-4.8); Lymphocytes % (A) 11 %; MCH 32.2 pg (25.0-35.0); MCHC 35.1 g/dL (31.0-37.0); Mean Platelet Volume 7.6; Monocytes # (A) 0.7 k/uL (0-1.0); Monocytes % (A) 13 %; Neutrophils # (A) 3.7 k/uL (1.3-7.7); Neutrophils % (A) 69 %; Platelet Count 163 k/uL (150-450); RDW 12.8 % (11.5-15.5); WBC 5.4 k/uL (3.8-10.6)
[2022-05-08 10:05] LABS: Partial Thromboplastin Time 24.9 sec (22.0-30.0); Prothrombin Time 10.5 sec (9.0-12.0)
--- NOTE | 2022-05-08 10:12 | XR ---
EXAMINATION TYPE: XR chest 2V DATE OF EXAM: 05/08/2022 COMPARISON: Chest x-ray 05/05/2022 HISTORY: Weakness, trauma TECHNIQUE: Frontal and lateral views of the chest are obtained. FINDINGS: There is no significant interval change. Cardiac mediastinal silhouette is stable. No evid ent airspace disease, pneumothorax, or pleural effusion. Lung volumes are low. Aorta is dense. There are overlying leads. Bones appear stable. Surgical clips present in the upper abdomen. There is thora cic spondylosis. IMPRESSION: No acute cardiopulmonary process.
[2022-05-08 10:19] LABS: Albumin 4.6 g/dL (3.5-5.0); Calcium 8.8 mg/dL (8.4-10.2); Magnesium 1.8 mg/dL (1.6-2.3); Phosphorus 3.1 mg/dL (2.5-4.5); Potassium 3.9 mmol/L (3.5-5.1); Total Bilirubin 0.6 mg/dL (0.2-1.3); Total Protein 7.2 g/dL (6.3-8.2)
[2022-05-08] MEDS ORDERED: FAMOTIDINE 20 MG TAB PO PRN (10:55)
--- NOTE | 2022-05-08 10:55 | ED ---
Weakness HPI - General Chief complaint: Weakness Stated complaint: weakness Time Seen by Provider: 05/08/22 09:08 Source: patient Mode of arrival: ambulatory Limitations: no limitations - History of Present Illness Initial comments: This 86-year-old male presents with complaint of some weakness. He states that it just started this morning. He apparently slumped down to the ground and was unable to get back up. He apparently was down for only 30 minutes and had to crawl to the phone to call his daughter. He states that it is a generalized body weakness and not localized. He denies any cough or difficulty in breathing. He denies any fevers or chills. He relates that he was just discharged from the hospital yesterday after a TIA. He apparently was admitted with some expressive aphasia but remainder of workup was negative. He is placed on Plavix. He has had resolution all of his TIA symptoms. He states that he is unable to stand or walk due to the weakness. There is no other complaints or modifying factors. He denies any urinary symptoms. - Related Data Home Medications Medication Instructions Recorded Confirmed Omeprazole 40 mg PO DAILY 02/14/19 05/08/22 Calcium Citrate/Vitamin D3 1 tab PO DAILY 02/23/20 05/08/22 [Citracal + D Maximum Caplet] Metoprolol Tartrate [Lopressor] 12.5 mg PO BID 02/23/20 05/08/22 Vitamin B Complex 1 cap PO CLAUDIO 02/23/20 05/08/22 Montelukast Sodium [Singulair] 10 mg PO HS 03/15/20 05/08/22 Cyanocobalamin (Vitamin B-12) 1,000 mcg PO MOTUWETHFRSA 02/01/22 05/08/22 [Vitamin B-12] Famotidine 20 mg PO BID PRN 02/01/22 05/08/22 Tamsulosin [Flomax] 0.4 mg PO HS 02/01/22 05/08/22 amLODIPine [Norvasc] 5 mg PO DAILY 02/01/22 05/08/22 Previous Rx's Medication Instructions Recorded Atorvastatin [Lipitor] 40 mg PO HS #30 tablet 02/04/22 Amoxic-Pot Clav 875-125Mg 1 tab PO Q12HR 7 Days #14 tab 05/07/22 [Augmentin 875-125] Clopidogrel [Plavix] 75 mg PO DAILY 30 Days #30 tab 05/07/22 Allergies Allergy/AdvReac Type Severity Reaction Status Date / Time atenolol Allergy Syncope Verified 05/08/22 10:15 Penicillins Allergy Rash/Hives Verified 05/08/22 10:15 prednisone Allergy Rash/Hives Verified 05/08/22 10:15 Review of Systems ROS Statement: Those systems with pertinent positive or pertinent negative responses have been documented in the HPI. ROS Other: All systems not noted in ROS Statement are negative. Past Medical History Past Medical History: Asthma, Coronary Artery Disease (CAD), Chest Pain / Angina, GERD/Reflux, GI Bleed, Hearing Disorder / Deafness, Hyperlipidemia, Hypertension, Liver Disease, Osteoarthritis (OA) Additional Past Medical History / Comment(s): Recurrent SBO d/t adhesions with conservative treatment and surgical treatment, mild leaky heart valve, bleeding ulcer/lower GI bleed many years ago with exsanguination and stayed in ICU/had transfusions then another less severe lower GI bleed a few years later, upper GI bleed, duodenal ulcer, hiatal hernia, hepatitis C d/t blood transfusion-2nd t reatment successful, some recent short term memory issues/tremors in hands and balance issues past few months being worked up, constipation, diverticulitis and past pre cancerous polypectomies-last colonoscopy was normal in 2018, low back pain, L shoulder pain, 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 History of Any Multi-Drug Resistant Organisms: None Reported Past Surgical History: Bowel Resection, Cholecystectomy, Heart Catheterization With Stent, Orthopedic Surgery Additional Past Surgical History / Comment(s): 06/2018 PCI with stent, 1999 PCI with 2 stents, laparotomy with lysis of adhesions, R rotator cuff repair, R knee arthroscopy, R upper chest lipoma removed, bilateral cataract removals/lens implants, EGD and colonoscopies with pre cancerous polypectomies-last c olonoscopy in 2018 was normal per pt. Past Anesthesia/Blood Transfusion Reactions: Blood Transfusion Reaction Additional Past Anesthesia/Blood Transfusion Reaction / Comment(s): CONTRACTED HEP C FROM A BLOOD TRANSFUSION 35-40 YEARS AGO. Date of Last Stent Placement:: JUN 2018 Past Psychological History: No Psychological Hx Reported Smoking Status: Former smoker Past Alcohol Use History: None Reported Past Drug Use History: None Reported - Past Family History Mother Family Medical History: Cancer Additional Family Medical History / Comment(s): Other at age 80 from acute kidney injury following surgery. Patient had bladder suspension surgery and she developed to have possibly uterine cancer however she ended up with renal failure refused hemodialysis Father Family Medical History: Cancer, Deep Vein Thrombosis (DVT), Pulmonary Embolus Additional Family Medical History / Comment(s): LUNG CANCER. Father in his mid 60s due to blood clots with history of bladder cancer . The cause of pulmonary embolism. Brother(s) Family Medical History: Cancer, Coronary Artery Disease (CAD) Additional Family Medical History / Comment(s): Patient has one brother with history of non-Hodgkin's lymphoma diagnosed 15 YEARS AGO. He does not have any sisters. He has adult children with no major medical problem basically 2 sons and a daughter. General Exam - General Exam Comments Initial Comments: GENERAL: The patient is well nourished and well hydrated. VITAL SIGNS: Heart rate, blood pressure, respiratory rate reviewed as recorded in nurse's notes. EYES: Pupils are round and reactive. Extraocular movements are intact. No conjunctival / lid redness or swelling. ENT: No external evidence of injury, swelling, or ecchymosis. Airway is patent. Throat is clear. NECK: Nontender. No swelling or evidence of injury. No subcutaneous emphysema. Trachea is midline. No thyroid mass. HEART: Regular rate and rhythm. Good peripheral pulses. LUNGS/CHEST: Breath sounds clear and equal bilaterally. No rales, rhonchi, or wheezes. No ecchymosis, subcutaneous emphysema, or tenderness. ABDOMEN: Abdomen soft without tenderness. No palpable masses or organomegaly. No peritoneal signs. No abdominal wall swelling or ecchymosis. EXTREMITIES: No extremity tenderness. Normal muscle tone and function. No thoracolumbar tenderness. NEUROLOGIC: Sensation is grossly intact. Cranial nerve exam reveals face is symmetrical, tongue is midline, speech is clear. SKIN: No abrasions or ecchymosis is noted. No induration or masses noted. PSYCHIATRIC: Alert and oriented. Appropriate behavior and judgment. Limitations: no limitations Course Vital Signs 05/08/22 09:04 Temperature 99.5 F Pulse Rate 82 Respiratory 20 Rate Blood Pressure 124/69 O2 Sat by Pulse 96 Oximetry Medical Decision Making - Medical Decision Making The patient was seen and examined. All diagnostics are reviewed. The EKG is do ne and shows a normal sinus rhythm at a rate of 80. Occasional PVC is noted. There is no acute ST-T wave changes otherwise identified. The AK intervals 226, QRS duration is 77, and the QTc interval is 396. The chest x-ray does not show any acute abnormalities. Is COVID test came back positive. The laboratory does show a slight decrease in his CO2. Urinalysis is pending. Patient is hydrated. It is felt as though his weakness likely is related to the phan virus infection. He will require admission as he is too weak to ambulate or walk. He lives by himself at home. He is agreeable with this plan. Case is discussed with internal medicine and patient will be admitted for further tr eatment. - Lab Data Result diagrams: 05/08/22 09:15 05/08/22 09:15 Lab Results 05/08/22 05/08/22 05/08/22 Range/Units 09:15 09:15 09:15 WBC 5.4 (3.8-10.6) k/uL RBC 5.10 (4.30-5.90) m/uL Hgb 16.5 (13.0-17.5) gm/dL Hct 46.9 (39.0-53.0) % MCV 92.0 (80.0-100.0) fL MCH 32.2 (25.0-35.0) pg MCHC 35.1 (31.0-37.0) g/dL RDW 12.8 (11.5-15.5) % Plt Count 163 (150-450) k/uL MPV 7.6 Neutrophils % 69 % Lymphocytes % 11 % Monocytes % 13 % Eosinophils % 1 % Basophils % 2 % Neutrophils # 3.7 (1.3-7.7) k/uL Lymphocytes # 0.6 L (1.0-4.8) k/uL Monocytes # 0.7 (0-1.0) k/uL Eosinophils # 0.1 (0-0.7) k/uL Basophils # 0.1 (0-0.2) k/uL PT 10.5 (9.0-12.0) sec INR 1.0 (<1.2) APTT 24.9 (22.0-30.0) sec Sodium 136 L (137-145) mmol/L Potassium 3.9 (3.5-5.1) mmol/L Chloride 102 (98-107) mmol/L Carbon Dioxide 19 L (22-30) mmol/L Anion Gap 15 mmol/L BUN 16 (9-20) mg/dL Creatinine 1.25 (0.66-1.25) mg/dL Est GFR (CKD-EPI)AfAm 61 (>60 ml/min/1.73 sqM) Est GFR (CKD-EPI)NonAf 53 (>60 ml/min/1.73 sqM) Glucose 131 H (74-99) mg/dL Plasma Lactic Acid Luiz (0.7-2.0) mmol/L Calcium 8.8 (8.4-10.2) mg/dL Phosphorus 3.1 (2.5-4.5) mg/dL Magnesium 1.8 (1.6-2.3) mg/dL Total Bilirubin 0.6 (0.2-1.3) mg/dL AST 49 (17-59) U/L ALT 39 (4-49) U/L Alkaline Phosphatase 79 (38-126) U/L Troponin I (0.000-0.034) ng/mL Total Protein 7.2 (6.3-8.2) g/dL Albumin 4.6 (3.5-5.0) g/dL TSH 0.589 (0.465-4.680) mIU/L Coronavirus (PCR) (Not Detectd) 05/08/22 05/08/22 05/08/22 Range/Units 09:15 09:15 09:15 WBC (3.8-10.6) k/uL RBC (4.30-5.90) m/uL Hgb (13.0-17.5) gm/dL Hct (39.0-53.0) % MCV (80.0-100.0) fL MCH (25.0-35.0) pg MCHC (31.0-37.0) g/dL RDW (11.5-15.5) % Plt Count (150-450) k/uL MPV Neutrophils % % Lymphocytes % % Monocytes % % Eosinophils % % Basophils % % Neutrophils # (1.3-7.7) k/uL Lymphocytes # (1.0-4.8) k/uL Monocytes # (0-1.0) k/uL Eosinophils # (0-0.7) k/uL Basophils # (0-0.2) k/uL PT (9.0-12.0) sec INR (<1.2) APTT (22.0-30.0) sec Sodium (137-145) mmol/L Potassium (3.5-5.1) mmol/L Chloride (98-107) mmol/L Carbon Dioxide (22-30) mmol/L Anion Gap mmol/L BUN (9-20) mg/dL Creatinine (0.66-1.25) mg/dL Est GFR (CKD-EPI)AfAm (>60 ml/min/1.73 sqM) Est GFR (CKD-EPI)NonAf (>60 ml/min/1.73 sqM) Glucose (74-99) mg/dL Plasma Lactic Acid Luiz 2.0 (0.7-2.0) mmol/L Calcium (8.4-10.2) mg/dL Phosphorus (2.5-4.5) mg/dL Magnesium (1.6-2.3) mg/dL Total Bilirubin (0.2-1.3) mg/dL AST (17-59) U/L ALT (4-49) U/L Alkaline Phosphatase (38-126) U/L Troponin I <0.012 (0.000-0.034) ng/mL Total Protein (6.3-8.2) g/dL Albumin (3.5-5.0) g/dL TSH (0.465-4.680) mIU/L Coronavirus (PCR) Detected A (Not Detectd) Disposition Clinical Impression: Generalized weakness, COVID-19, Inability to walk Disposition: ADMITTED IP TO THIS [facility] Condition: Fair Is patient prescribed a controlled substance at d/c from ED?: No Time of Disposition: 10:55 Decision Date: 05/08/22 Decision Time: 10:55
[2022-05-08] MEDS ORDERED: NALOXONE 0.4 MG/ML 1 ML VIAL IV PRN (10:57)
[2022-05-08] MEDS ORDERED: ONDANSETRON 4 MG/2 ML VIAL IVP PRN (10:57)
[2022-05-08] MEDS: CYANOCOBALAMIN 500 MCG TAB PO SCH (12:48)
[2022-05-08 16:10] LABS: Appearance,Urine Clear (Clear); Bilirubin,Urine Negative (Negative); Blood,Urine Negative (Negative); Color,Urine Yellow; Glucose,Urine (UA) Negative (Negative); Ketones,Urine Trace (Negative); Leukocyte Esterase,Urine Negative (Negative); Mucus,Urine Rare /hpf; Nitrite,Urine Negative (Negative); PH, Urine 5.5 (5.0-8.0); Protein,Urine 1+ (Negative); RBC,Urine <1 /hpf (0-5); Specific Gravity,Urine 1.024 (1.001-1.035); Urobilinogen,Urine <2.0 mg/dL (<2.0); WBC,Urine 1 /hpf (0-5)
[2022-05-08] MEDS ORDERED: AMOXIC-POT CLAV 875-125MG 1 EACH TAB PO SCH (21:00)
[2022-05-08] MEDS: METOPROLOL TARTRATE 12.5 MG TAB PO SCH (21:36)
[2022-05-08] MEDS: MONTELUKAST 10 MG TAB PO SCH (21:36)
[2022-05-08] MEDS: TAMSULOSIN 0.4 MG CAP.ER.24H PO SCH (21:36)
[2022-05-08] MEDS: ATORVASTATIN 40 MG TAB PO SCH (21:36)
[2022-05-08] MEDS ORDERED: BENZOCAINE/MENTHOL LOZENG 1 EACH LOZENGE MUCOUS MEM PRN (23:47)
--- NOTE | 2022-05-08 23:47 | P.HPIM ---
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 Patient also awake this morning and slumped onto the ground. Unable to get back up. Denied any hitting his head. Apparently he was down for about 30 minutes and had to crawl to the phone to call his daughter. Denied any focal weakness. No cough or sputum production. No complaints of chest pain or shortness of breath. No fever no chills. No nausea vomiting abdominal pain or diarrhea. Chest x-ray showed no acute cardiopulmonary process. EKG showed sinus rhythm Laboratory data showed WBC 5.4 hemoglobin 16.5 and platelets 163 Sodium 136 potassium 3.9 chloride 102 bicarb is 19 BUN 16 and creatinine 1.25 lactic acid 2.0 liver enzymes are not elevated and troponin x1 negative and TSH level of 0.589 Urinalysis is negative for infection Coronavirus PCR detected. Review of Systems Constitutional: Patient denies any fever or chills . Generalized weakness. Abdomen: Patient denied any nausea or vomiting or abd. pain Cardiovascular: Patient denies any chest pain or short of breath no palpitat ions. Respiratory: patient denied any cough . no sputum production. No shortness of breath Neurologic: Patient denied any numbness or tingling headache. Musculoskeletal: Patient denies any complaints of joint swelling or deformity. Skin: Negative Psychiatric: Negative Endocrine: No heat or cold intolerance. No recent weight gain. Genitourinary: No dysuria or hematuria. All other 14 point ROS negative except the above Past Medical History Past Medical History: Asthma, Coronary Artery Disease (CAD), Chest Pain / Angina, GERD/Reflux, GI Bleed, Hearing Disorder / Deafness, Hyperlipidemia, Hypertension, Liver Disease, Osteoarthritis (OA) Additional Past Medical History / Comment(s): Recurrent SBO d/t adhesions with conservative treatment and surgical treatment, mild leaky heart valve, bleeding ulcer/lower GI bleed many years ago with exsanguination and stayed in ICU/had transfusions then another less severe lower GI bleed a few years later, upper GI bleed, duodenal ulcer, hiatal hernia, hepatitis C d/t blood transfusion-2nd treatment successful, some recent short term memory issues/tremors in hands and balance issues past few months being worked up, constipation, diverticulitis and past pre cancerous polypectomies-last colonoscopy was normal in 2018, low back pain, L shoulder pain, 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 History of Any Multi-Drug Resistant Organisms: None Reported Past Surgical History: Bowel Resection, Cholecystectomy, Heart Catheterization With Stent, Orthopedic Surgery Additional Past Surgical History / Comment(s): 06/2018 PCI with stent, 1999 PCI with 2 stents, laparotomy with lysis of adhesions, R rotator cuff repair, R knee arthroscopy, R upper chest lipoma removed, bilateral cataract removals/lens implants, EGD and colonoscopies with pre cancerous polypectomies-last colonoscopy in 2018 was normal per pt. Past Anesthesia/Blood Transfusion Reactions: Blood Transfusion Reaction Additional Past Anesthesia/Blood Transfusion Reaction / Comment(s): CONTRACTED HEP C FROM A BLOOD TRANSFUSION 35-40 YEARS AGO. Date of Last Stent Placement:: JUN 2018 Past Psychological History: No Psychological Hx Reported Smoking Status: Former smoker Past Alcohol Use History: None Reported Past Drug Use History: None Reported - Past Family History Mother Family Medical History: Cancer Additional Family Medical History / Comment(s): Other at age 80 from acute kidney injury following surgery. Patient had bladder suspension surgery and she developed to have possibly uterine cancer however she ended up with renal fa ilure refused hemodialysis Father Family Medical History: Cancer, Deep Vein Thrombosis (DVT), Pulmonary Embolus Additional Family Medical History / Comment(s): LUNG CANCER. Father in his mid 60s due to blood clots with history of bladder cancer . The cause of pulmonary embolism. Brother(s) Family Medical History: Cancer, Coronary Artery Disease (CAD) Additional Family Medical History / Comment(s): Patient has one brother with history of non-Hodgkin's lymphoma diagnosed 15 YEARS AGO. He does not have any sisters. He has adult children with no major medical problem basically 2 sons and a daughter. Medications and Allergies Home Medications Medication Instructions Recorded Confirmed Type Omeprazole 40 mg PO DAILY 02/14/19 05/08/22 History Calcium Citrate/Vitamin D3 1 tab PO DAILY 02/23/20 05/08/22 History [Citracal + D Maximum Caplet] Metoprolol Tartrate [Lopressor] 12.5 mg PO BID 02/23/20 05/08/22 History Vitamin B Complex 1 cap PO CLAUDIO 02/23/20 05/08/22 History Montelukast Sodium [Singulair] 10 mg PO HS 03/15/20 05/08/22 History Cyanocobalamin (Vitamin B-12) 1,000 mcg PO MOTUWETHFRSA 02/01/22 05/08/22 History [Vitamin B-12] Famotidine 20 mg PO BID PRN 02/01/22 05/08/22 History Tamsulosin [Flomax] 0.4 mg PO HS 02/01/22 05/08/22 History amLODIPine [Norvasc] 5 mg PO DAILY 02/01/22 05/08/22 History Atorvastatin [Lipitor] 40 mg PO HS #30 tablet 02/04/22 05/08/22 Rx Amoxic-Pot Clav 875-125Mg 1 tab PO Q12HR 7 Days #14 tab 05/07/22 05/08/22 Rx [Augmentin 875-125] Clopidogrel [Plavix] 75 mg PO DAILY 30 Days #30 tab 05/07/22 05/08/22 Rx Allergies Allergy/AdvReac Type Severity Reaction Status Date / Time atenolol Allergy Syncope Verified 05/08/22 10:15 Penicillins Allergy Rash/Hives Verified 05/08/22 10:15 prednisone Allergy Rash/Hives Verified 05/08/22 10:15 Physical Exam Vitals: Vital Signs Temp Pulse Pulse Pulse Pulse Resp BP 05/08/22 11:00 62 22 124/79 05/08/22 10:30 64 22 132/82 05/08/22 09:44 80 76 70 20 05/08/22 09:04 99.5 F 82 20 124/69 BP BP BP Pulse Ox 05/08/22 11:00 96 05/08/22 10:30 96 05/08/22 09:44 114/76 113/70 123/74 97 05/08/22 09:04 96 Intake and Output 05/08/22 05/08/22 05/08/22 06:59 14:59 22:59 Other: Weight 73.482 kg PHYSICAL EXAMINATION: Patient is lying in the bed comfortably, no acute distress, awake alert and oriented.. HEENT: Normocephalic. Neck is supple. Pupils reactive. Nostrils clear. Oral cavity is moist. Neck reveals no JVD, carotid bruits, or thyromegaly. CHEST EXAMINATION: Trachea is central. Symmetrical expansion. Lung zimmerman clear to auscultation and percussion. CARDIAC: Normal S1, S2 with no gallops. No murmurs ABDOMEN: Soft. Bowel sounds present. Nontender. No organomegaly. No abdominal bruits. Extremities: reveal no edema. No clubbing or cyanosis Neurologically awake, alert, oriented x3 with well-coordinated movements. No focal deficits noted Skin: No rash or skin lesions. Psychiatric: Coperative. Nonsuicidal, Musculoskeletal: No joint swelling or deformity. Normal range of motion. Results CBC & Chem 7: 05/08/22 09:15 05/08/22 09:15 Labs: Abnormal Lab Results - Last 24 Hours (Table) 05/08/22 05/08/22 05/08/22 Range/Units 09:15 09:15 09:15 Lymphocytes # 0.6 L (1.0-4.8) k/uL Sodium 136 L (137-145) mmol/L Carbon Dioxide 19 L (22-30) mmol/L Glucose 131 H (74-99) mg/dL Coronavirus (PCR) Detected A (Not Detectd) Thrombosis Risk Factor Assmnt - DVT/VTE Prophylaxis DVT/VTE Prophylaxis: Pharmacologic Prophylaxis ordered Assessment and Plan Assessment: Acute COVID-19 infection. Patient was vaccinated. Generalized weakness and sinus congestion secondary above Recent admission for TIA with speech difficulty. Resolved. No new issues. Coronary artery disease history of stent placement History of GI bleed Hypertension Hyperlipidemia Hearing disorder/deafness Osteoarthritis Prior history of smoking history of duodenal ulcer DVT prophylaxis Time with Patient: Greater than 30
[2022-05-09] MEDS: amLODIPine 5 MG TAB PO SCH (10:22)
[2022-05-09] MEDS: CALCIUM CARB-VIT D 500 MG-5 MCG TAB PO SCH (10:22)
[2022-05-09] MEDS: METOPROLOL TARTRATE 12.5 MG TAB PO SCH ×2 (10:22→20:26)
[2022-05-09] MEDS: CYANOCOBALAMIN 500 MCG TAB PO SCH (10:22)
[2022-05-09] MEDS: CLOPIDOGREL 75 MG TAB PO SCH (10:22)
[2022-05-09] MEDS: ASCORBIC ACID 500 MG TAB PO SCH (10:22)
[2022-05-09] MEDS: CHOLECALCIFEROL 25 MCG (1000 IU) TABLET PO SCH (10:22)
[2022-05-09] MEDS: PANTOPRAZOLE 40 MG TABLET PO SCH (10:23)
[2022-05-09] MEDS: ENOXAPARIN 40 MG/0.4 ML SYRINGE SQ SCH (10:23)
[2022-05-09 12:22] LABS: C Reactive Protein 0.6 mg/dL (0.00-0.80)
[2022-05-09 12:41] LABS: Anion Gap 10.4 mmol/L (10.00-18.00); Blood Urea Nitrogen 15.6 mg/dL (9.0-27.0); Calcium 8.1 mg/dL (8.7-10.3); Carbon Dioxide 20.6 mmol/L (20.0-27.5); Non-African American GFR(CKD) 55.2 (60.0-200.0); Potassium 3.8 mmol/L (3.5-5.5)
[2022-05-09] MEDS: ATORVASTATIN 40 MG TAB PO SCH (20:26)
[2022-05-09] MEDS: TAMSULOSIN 0.4 MG CAP.ER.24H PO SCH (20:26)
[2022-05-09] MEDS: MONTELUKAST 10 MG TAB PO SCH (20:26)
[2022-05-10] MEDS: PANTOPRAZOLE 40 MG TABLET PO SCH (07:28)
[2022-05-10] MEDS: ENOXAPARIN 40 MG/0.4 ML SYRINGE SQ SCH (10:17)
[2022-05-10] MEDS: CHOLECALCIFEROL 25 MCG (1000 IU) TABLET PO SCH (10:18)
[2022-05-10] MEDS: amLODIPine 5 MG TAB PO SCH (10:18)
[2022-05-10] MEDS: ASCORBIC ACID 500 MG TAB PO SCH (10:18)
[2022-05-10] MEDS: CALCIUM CARB-VIT D 500 MG-5 MCG TAB PO SCH (10:18)
[2022-05-10] MEDS: CLOPIDOGREL 75 MG TAB PO SCH (10:18)
[2022-05-10] MEDS: METOPROLOL TARTRATE 12.5 MG TAB PO SCH ×2 (10:19→19:55)
[2022-05-10] MEDS ORDERED: NON FORMULARY DRUG (Vitamin B Complex [Vitamin B Complex] 1 EACH Capsule) PO SCH (10:55)
[2022-05-10] MEDS: TAMSULOSIN 0.4 MG CAP.ER.24H PO SCH (19:55)
[2022-05-10] MEDS: ATORVASTATIN 40 MG TAB PO SCH (19:55)
[2022-05-10] MEDS: MONTELUKAST 10 MG TAB PO SCH (19:55)
--- NOTE | 2022-05-11 02:47 | P.PN ---
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 Patient also awake this morning and slumped onto the ground. Unable to get back up. Denied any hitting his head. Apparently he was down for about 30 minutes and had to crawl to the phone to call his daughter. Denied any focal weakness. No cough or sputum production. No complaints of chest pain or shortness of breath. No fever no chills. No nausea vomiting abdominal pain or diarrhea. Chest x-ray showed no acute cardiopulmonary process. EKG showed sinus rhythm Laboratory data showed WBC 5.4 hemoglobin 16.5 and platelets 163 Sodium 136 potassium 3.9 chloride 102 bicarb is 19 BUN 16 and creatinine 1.25 lactic acid 2.0 liver enzymes are not elevated and troponin x1 negative and TSH level of 0.589 Urinalysis is negative for infection Coronavirus PCR detected. 05/09/2022 Patient is currently resting in bed. Awake alert oriented x3. Feels better. Able to sit at the side of the bed. No complaints of dizziness or lightheadedness. No fever no chills. No cough or sputum production. Laboratory showed sodium 134 potassium 3.8 chloride 104 bicarb is 20.6 BUN 15.6 and creatinine 1.1 calcium 8.1 and LDH and CRP levels not elevated. PT OT and considering possible discharge to rehab. Objective - Vital Signs Vital signs: Vital Signs Temp 98.5 F 05/09/22 14:00 Pulse 58 L 05/09/22 14:00 Resp 20 05/09/22 14:00 BP 132/71 05/09/22 14:00 Pulse Ox 97 05/09/22 14:00 FiO2 Intake & Output 05/08/22 05/09/22 05/09/22 18:59 06:59 18:59 Intake Total 300 Output Total 275 Balance 25 Weight 73.482 kg Intake: Oral 300 Output: Urine 275 Other: Voiding Method Urinal # Voids 2 1 - Exam PHYSICAL EXAMINATION: Patient is lying in the bed comfortably, no acute distress, awake alert and oriented.. HEENT: Normocephalic. Neck is supple. Pupils reactive. Nostrils clear. Oral cavity is moist. Neck reveals no JVD, carotid bruits, or thyromegaly. CHEST EXAMINATION: Trachea is central. Symmetrical expansion. Lung zimmerman clear to auscultation and percussion. CARDIAC: Normal S1, S2 with no gallops. No murmurs ABDOMEN: Soft. Bowel sounds present. Nontender. No organomegaly. No abdominal bruits. Extremities: reveal no edema. No clubbing or cyanosis Neurologically awake, alert, oriented x3 with well-coordinated movements. No focal deficits noted Skin: No rash or skin lesions. Psychiatric: Coperative. Nonsuicidal, Musculoskeletal: No joint swelling or deformity. Normal range of motion. - Labs CBC & Chem 7: 05/08/22 09:15 05/09/22 07:32 Labs: Abnormal Lab Results - Last 24 Hours (Table) 05/08/22 05/09/22 Range/Units 15:58 07:32 Est GFR (CKD-EPI)NonAf 55.2 L (60.0-200.0) Calcium 8.1 L (8.7-10.3) mg/dL Urine Protein 1+ H (Negative) Urine Ketones Trace H (Negative) Urine Mucus Rare H (None) /hpf Microbiology - Last 24 Hours (Table) 05/08/22 09:15 Blood Culture - Preliminary Blood No Growth after 24 hours Assessment and Plan Assessment: Acute COVID-19 infection. Patient was vaccinated. Generalized weakness and sinus congestion secondary above Recent admission for TIA with speech difficulty. Resolved. No new issues. Coronary artery disease history of stent placement History of GI bleed Hypertension Hyperlipidemia Hearing disorder/deafness Osteoarthritis Prior history of smoking history of duodenal ulcer DVT prophylaxis Plan: Patient will be continued on supportive care. Continue with multivitamins and DVT prophylaxis with Lovenox. Continue with home medications. Encourage PT OT and possible discharge to rehab. Patient is currently on room air. Time with Patient: Greater than 30
--- NOTE | 2022-05-11 02:48 | P.PN ---
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 Patient also awake this morning and slumped onto the ground. Unable to get back up. Denied any hitting his head. Apparently he was down for about 30 minutes and had to crawl to the phone to call his daughter. Denied any focal weakness. No cough or sputum production. No complaints of chest pain or shortness of breath. No fever no chills. No nausea vomiting abdominal pain or diarrhea. Chest x-ray showed no acute cardiopulmonary process. EKG showed sinus rhythm Laboratory data showed WBC 5.4 hemoglobin 16.5 and platelets 163 Sodium 136 potassium 3.9 chloride 102 bicarb is 19 BUN 16 and creatinine 1.25 lactic acid 2.0 liver enzymes are not elevated and troponin x1 negative and TSH level of 0.589 Urinalysis is negative for infection Coronavirus PCR detected. 05/09/2022 Patient is currently resting in bed. Awake alert oriented x3. Feels better. Able to sit at the side of the bed. No complaints of dizziness or lightheadedness. No fever no chills. No cough or sputum production. Laboratory showed sodium 134 potassium 3.8 chloride 104 bicarb is 20.6 BUN 15.6 and creatinine 1.1 calcium 8.1 and LDH and CRP levels not elevated. PT OT and considering possible discharge to rehab. 05/10/2022 Patient is sitting in the chair comfortably. Awake alert oriented x3. Weakness is much improved. Patient is able to ambulate to the bathroom. No other acute overnight issues. No cough or sputum production. No headache or dizziness or lightheadedness. No fever no chills. Laboratory data reviewed. Anticipate discharge to rehab versus home with home care. Apparently patient lives by himself. PT OT was consulted. Objective - Vital Signs Vital signs: Vital Signs Temp 98.5 F 05/10/22 14:00 Pulse 52 L 05/10/22 14:00 Resp 18 05/10/22 14:00 BP 118/64 05/10/22 14:00 Pulse Ox 97 05/10/22 14:00 FiO2 Intake & Output 05/09/22 05/10/22 05/10/22 18:59 06:59 18:59 Intake Total 418 233 Output Total 275 Balance 143 233 Intake: Oral 418 233 Output: Urine 275 Other: Voiding Method Urinal Urinal # Voids 1 1 1 - Exam PHYSICAL EXAMINATION: Patient is lying in the bed comfortably, no acute distress, awake alert and oriented.. HEENT: Normocephalic. Neck is supple. Pupils reactive. Nostrils clear. Oral cavity is moist. Neck reveals no JVD, carotid bruits, or thyromegaly. CHEST EXAMINATION: Trachea is central. Symmetrical expansion. Lung zimmerman clear to auscultation and percussion. CARDIAC: Normal S1, S2 with no gallops. No murmurs ABDOMEN: Soft. Bowel sounds present. Nontender. No organomegaly. No abdominal bruits. Extremities: reveal no edema. No clubbing or cyanosis Neurologically awake, alert, oriented x3 with well-coordinated movements. No focal deficits noted Skin: No rash or skin lesions. Psychiatric: Coperative. Nonsuicidal, Musculoskeletal: No joint swelling or deformity. Normal range of motion. - Labs CBC & Chem 7: 05/08/22 09:15 05/09/22 07:32 Labs: Microbiology - Last 24 Hours (Table) 05/08/22 09:15 Blood Culture - Preliminary Blood No Growth after 48 hours Assessment and Plan Assessment: Acute COVID-19 infection. Patient was vaccinated. Generalized weakness and sinus congestion secondary above. improving Recent admission for TIA with speech difficulty. Resolved. No new issues. Coronary artery disease history of stent placement History of GI bleed Hypertension Hyperlipidemia Hearing disorder/deafness Osteoarthritis Prior history of smoking history of duodenal ulcer DVT prophylaxis Plan: Patient will be continued on supportive care. Continue with multivitamins and DVT prophylaxis with Lovenox. Continue with home medications. Encourage PT OT and possible discharge to rehab. Patient is currently on room air.
[2022-05-11 08:29] VITALS: BP 114/63; RESP 17; TEMP 97.7
[2022-05-11] MEDS: CHOLECALCIFEROL 25 MCG (1000 IU) TABLET PO SCH (09:01)
[2022-05-11] MEDS: PANTOPRAZOLE 40 MG TABLET PO SCH (09:01)
[2022-05-11] MEDS: amLODIPine 5 MG TAB PO SCH (09:01)
[2022-05-11] MEDS: CLOPIDOGREL 75 MG TAB PO SCH (09:02)
[2022-05-11] MEDS: CYANOCOBALAMIN 500 MCG TAB PO SCH (09:02)
[2022-05-11] MEDS: CALCIUM CARB-VIT D 500 MG-5 MCG TAB PO SCH (09:02)
[2022-05-11] MEDS: ENOXAPARIN 40 MG/0.4 ML SYRINGE SQ SCH (09:02)
[2022-05-11] MEDS: ASCORBIC ACID 500 MG TAB PO SCH (09:02)
[2022-05-11] MEDS: METOPROLOL TARTRATE 12.5 MG TAB PO SCH (09:02)
[2022-05-11 09:54] VITALS: PULSE 73
[2022-05-11] MEDS ORDERED: PSEUDOEPHEDRINE 30 MG TAB PO PRN (12:25)
== END 2022-05-11 15:25 | disposition home or self-care (01) | DRG 179 ==
LOC: EC 08:59 → 4SSUR 10:57 → 6NMEDSUR 18:05
PROVIDERS: ADMIT Hospitalist; ATTEND Hospitalist
DX: U07.1 COVID-19 (principal); I25.10 Atherosclerotic heart disease of native coronary artery without angina pectoris; J45.909 Unspecified asthma, uncomplicated; K21.9 Gastro-esophageal reflux disease without esophagitis; H91.90 Unspecified hearing loss, unspecified ear; E78.5 Hyperlipidemia, unspecified; R53.1 Weakness; I10 Essential (primary) hypertension; M19.90 Unspecified osteoarthritis, unspecified site; I49.3 Ventricular premature depolarization; Z79.02 Long term (current) use of antithrombotics/antiplatelets; Z79.899 Other long term (current) drug therapy; Z86.73 Personal history of transient ischemic attack (TIA), and cerebral infarction without residual deficits; Z87.11 Personal history of peptic ulcer disease; Z87.891 Personal history of nicotine dependence; Z95.5 Presence of coronary angioplasty implant and graft; Z98.42 Cataract extraction status, left eye; Z98.41 Cataract extraction status, right eye; Z96.1 Presence of intraocular lens; Z82.49 Family history of ischemic heart disease and other diseases of the circulatory system; Z88.0 Allergy status to penicillin; Z88.8 Allergy status to other drugs, medicaments and biological substances; Z87.19 Personal history of other diseases of the digestive system; Z90.49 Acquired absence of other specified parts of digestive tract
CPT/HCPCS: 36415; 71046; 80048; 80053; 81001; 83605; 83615; 83735; 84100; 84443; 84484; 85025; 85610; 85730; 86140; 87040; 87635; 93005; 99285

== ENCOUNTER → 2022-05-26 | Outpatient (CLI) | payer MEDICARE ==
[2022-05-26 18:20] LABS: Basophils % (A) 1.1 %; Eosinophils # (A) 0.38 X 10*3/uL (0.04-0.35); Eosinophils % (A) 4.2 %; HCT 41.9 % (39.6-50.0); HGB 13.7 g/dL (13.0-17.0); Immature Grans, Automated 0.4 %; Lymphocytes # (A) 2.24 X 10*3/uL (0.90-5.00); Lymphocytes % (A) 24.5 %; MCH 30.6 pg (27.0-32.0); MCHC 32.7 g/dL (32.0-37.0); MCV 93.7 fL (80.0-97.0); Mean Platelet Volume 10.2 fL (9.5-12.2); Monocytes # (A) 1.11 X 10*3/uL (0.20-1.00); Monocytes % (A) 12.1 %; NRBC Per 100 WBC 0 /100 WBCS (0.0-0.0); Neutrophils # (A) 5.27 X 10*3/uL (1.80-7.70); Neutrophils % (A) 57.7 %; Platelet Count 204 X 10*3/uL (140-440); RBC 4.47 X 10*6/uL (4.40-5.60); RDW 13.4 % (11.5-14.5); WBC 9.14 X 10*3/uL (4.50-10.00)
[2022-05-26 18:31] LABS: ALT 26 U/L (10-49); AST 21 U/L (14-35); Albumin/Globulin Ratio 1.96 (1.60-3.17); Alkaline Phosphatase 81 U/L (41-126); BUN/Creat Ratio 12.31 Ratio (12.00-20.00); Blood Urea Nitrogen 14.4 mg/dL (9.0-27.0); Carbon Dioxide 25.1 mmol/L (20.0-27.5); Chloride 107 mmol/L (96-109); Glucose 92 mg/dL (70-110); LDL Cholesterol,Calculated 56.5 mg/dL (0.0-131.0); Non-African American GFR(CKD) 56.9 (60.0-200.0); Potassium 4.2 mmol/L (3.5-5.5); Sodium 141 mmol/L (135-145)
== END | disposition home or self-care (01) ==
LOC: LABWHC1 10:59
PROVIDERS: ATTEND Internal Medicine Interventional Cardiology
DX: I10 Essential (primary) hypertension (principal); E78.2 Mixed hyperlipidemia
CPT/HCPCS: 36415; 80053; 80061; 85025

== ENCOUNTER 2022-06-11 13:46 | Inpatient (IN) | payer MEDICARE ==
[2022-06-11 16:07] LABS: Basophils % (A) 0 %; Eosinophils # (A) 0.1 k/uL (0-0.7); Eosinophils % (A) 1 %; HCT 47.8 % (39.0-53.0); HGB 16.5 gm/dL (13.0-17.5); Lymphocytes # (A) 1.6 k/uL (1.0-4.8); Lymphocytes % (A) 12 %; MCHC 34.5 g/dL (31.0-37.0); MCV 92.7 fL (80.0-100.0); Mean Platelet Volume 7.7; Monocytes # (A) 0.5 k/uL (0-1.0); Monocytes % (A) 4 %; Neutrophils # (A) 11.4 k/uL (1.3-7.7); Neutrophils % (A) 81 %; Platelet Count 202 k/uL (150-450); RBC 5.15 m/uL (4.30-5.90); RDW 13.6 % (11.5-15.5)
[2022-06-11] MEDS ORDERED: ONDANSETRON 4 MG/2 ML VIAL IVP STA (16:07)
[2022-06-11] MEDS ORDERED: SODIUM CHLORIDE 0.9% 1,000 ML IV STA (16:07)
[2022-06-11] MEDS ORDERED: PANTOPRAZOLE 40 MG/10 ML VIAL IVP STA (16:08)
[2022-06-11 16:26] LABS: Albumin 4.7 g/dL (3.5-5.0); Calcium 9.4 mg/dL (8.4-10.2); Potassium 4.5 mmol/L (3.5-5.1); Total Bilirubin 0.7 mg/dL (0.2-1.3); Total Protein 7.4 g/dL (6.3-8.2)
--- NOTE | 2022-06-11 16:30 | ED ---
Abdominal Pain HPI - General Chief Complaint: Nausea/Vomiting/Diarrhea Stated Complaint: Vomiting Time Seen by Provider: 06/11/22 14:51 Source: patient, RN notes reviewed Mode of arrival: wheelchair - History of Present Illness Initial Comments: This is an 86-year-old male who presents to the emergency department for abdominal pain, nausea, and vomiting. States that last night, he had diarrhea that he described as very watery. He then had progressive nausea and vomiting. Reports associated bloating and mid abdominal pain. He has a history of bowel obstructions and states that this feels similar. Denies any blood in his stool or vomit. He did have COVID in April, which also caused him to have diarrhea. Denies eating anything new or irregular and he has not been around anyone sick. Denies any fevers, chills, sore throat, cough, dyspnea, chest pain, pa lpitations, back pain, or headaches. MD Complaint: abdominal pain Onset/Timin -: days(s) Location: diffuse - Related Data Home Medications Medication Instructions Recorded Confirmed Omeprazole 40 mg PO DAILY 02/14/19 06/11/22 Calcium Citrate/Vitamin D3 1 tab PO DAILY 02/23/20 06/11/22 [Citracal + D Maximum Caplet] Metoprolol Tartrate [Lopressor] 12.5 mg PO BID 02/23/20 06/11/22 Vitamin B Complex 1 cap PO CLAUDIO 02/23/20 06/11/22 Montelukast Sodium [Singulair] 10 mg PO HS 03/15/20 06/11/22 Cyanocobalamin (Vitamin B-12) 1,000 mcg PO MOTUWETHFRSA 02/01/22 06/11/22 [Vitamin B-12] Famotidine 20 mg PO BID PRN 02/01/22 06/11/22 Tamsulosin [Flomax] 0.4 mg PO HS 02/01/22 06/11/22 amLODIPine [Norvasc] 5 mg PO DAILY 02/01/22 06/11/22 Previous Rx's Medication Instructions Recorded Atorvastatin [Lipitor] 40 mg PO HS #30 tablet 02/04/22 Clopidogrel [Plavix] 75 mg PO DAILY 30 Days #30 tab 05/07/22 Allergies Allergy/AdvReac Type Severity Reaction Status Date / Time atenolol Allergy Syncope Verified 06/11/22 17:24 Penicillins Allergy Rash/Hives Verified 06/11/22 17:24 prednisone Allergy Rash/Hives Verified 06/11/22 17:24 Review of Systems ROS Statement: Those systems with pertinent positive or pertinent negative responses have been documented in the HPI. ROS Other: All systems not noted in ROS Statement are negative. Past Medical History Past Medical History: Asthma, Coronary Artery Disease (CAD), Chest Pain / Angina, GERD/Reflux, GI Bleed, Hearing Disorder / Deafness, Hyperlipidemia, Hypertension, Liver Disease, Osteoarthritis (OA) Additional Past Medical History / Comment(s): Recurrent SBO d/t adhesions with conservative treatment and surgical treatment, mild leaky heart valve, bleeding ulcer/lower GI bleed many years ago with exsanguination and stayed in ICU/had transfusions then another less severe lower GI bleed a few years later, upper GI bleed, duodenal ulcer, hiatal hernia, hepatitis C d/t blood transfusion-2nd treatment successful, some recent short term memory issues/tremors in hands and balance issues past few months being worked up, constipation, diverticulitis and past pre cancerous polypectomies-last colonoscopy was normal in 2018, low back pain, L shoulder pain, gout-saw health navigator in past, 06/2018 shingelles, [place] [employer] bilaterally, ventral hernia. History of Any Multi-Drug Resistant Organisms: None Reported Past Surgical History: Bowel Resection, Cholecystectomy, Heart Catheterization With Stent, Orthopedic Surgery Additional Past Surgical History / Comment(s): 06/2018 PCI with stent, 1999 PCI with 2 stents, laparotomy with lysis of adhesions, R rotator cuff repair, R knee arthroscopy, R upper chest lipoma removed, bilateral cataract removals/lens implants, EGD and colonoscopies with pre cancerous polypectomies-last colonoscopy in 2018 was normal per pt. Past Anesthesia/Blood Transfusion Reactions: Blood Transfusion Reaction Additional Past Anesthesia/Blood Transfusion Reaction / Comment(s): CONTRACTED HEP C FROM A BLOOD TRANSFUSION 35-40 YEARS AGO. Date of Last Stent Placement:: JUN 2018 Past Psychological History: No Psychological Hx Reported Smoking Status: Former smoker Past Alcohol Use History: None Reported Past Drug Use History: None Reported - Past Family History Mother Family Medical History: Cancer Additional Family Medical History / Comment(s): Other at age 80 from acute kidney injury following surgery. Patient had bladder suspension surgery and she developed to have possibly uterine cancer however she ended up with renal failure refused hemodialysis Father Family Medical History: Cancer, Deep Vein Thrombosis (DVT), Pulmonary Embolus Additional Family Medical History / Comment(s): LUNG CANCER. Father in his mid 60s due to blood clots with history of bladder cancer . The cause of pulmonary embolism. Brother(s) Family Medical History: Cancer, Coronary Artery Disease (CAD) Additional Family Medical History / Comment(s): Patient has one brother with history of non-Hodgkin's lymphoma diagnosed 15 YEARS AGO. He does not have any sisters. He has adult children with no major medical problem basically 2 sons and a daughter. General Exam General appearance: alert, in no apparent distress Head exam: Present: atraumatic, normocephalic, normal inspection Respiratory exam: Present: normal lung sounds bilaterally. Absent: respiratory distress, wheezes, rales, rhonchi, stridor Cardiovascular Exam: Present: regular rate, normal rhythm, normal heart sounds. Absent: systolic murmur, diastolic murmur, rubs, gallop, clicks GI/Abdominal exam: Present: soft, distended, tenderness (Diffuse), hypoactive bowel sounds Neurological exam: Present: alert, oriented X3, CN II-XII intact Psychiatric exam: Present: normal affect, normal mood Skin exam: Present: warm, dry, intact, normal color. Absent: rash Course Vital Signs 06/11/22 14:40 Temperature 99.3 F Pulse Rate 86 Respiratory 18 Rate Blood Pressure 128/79 O2 Sat by Pulse 97 Oximetry Medical Decision Making - Medical Decision Making This is an 86-year-old male who presents to the emergency department for abdominal pain, nausea, and vomiting. Lab work reveals leukocytosis. Patient was given IV fluids, toradol, and Zofran. Computed tomography scan of the abdomen and pelvis obtained revealing prominent right-sided small bowel loops with air-fluid levels suggestive of a partial small bowel obstruction. Imaging is similar to prior, however the patient's symptoms are acute in nature. Currently having uncontrollable abdominal pain, nausea, and vomiting. Patient will be admitted to medicine for bowel rest, maintenance fluids, and symptom control. This case was discussed in detail with the attending ED physician. Presentation, findings, and treatment plan discussed in detail as well. - Lab Data Result diagrams: 06/11/22 15:40 06/11/22 15:40 Lab Results 06/11/22 06/11/22 06/11/22 Range/Units 15:40 15:40 15:40 WBC 14.0 H (3.8-10.6) k/uL RBC 5.15 (4.30-5.90) m/uL Hgb 16.5 (13.0-17.5) gm/dL Hct 47.8 (39.0-53.0) % MCV 92.7 (80.0-100.0) fL MCH 32.0 (25.0-35.0) pg MCHC 34.5 (31.0-37.0) g/dL RDW 13.6 (11.5-15.5) % Plt Count 202 (150-450) k/uL MPV 7.7 Neutrophils % 81 % Lymphocytes % 12 % Monocytes % 4 % Eosinophils % 1 % Basophils % 0 % Neutrophils # 11.4 H (1.3-7.7) k/uL Lymphocytes # 1.6 (1.0-4.8) k/uL Monocytes # 0.5 (0-1.0) k/uL Eosinophils # 0.1 (0-0.7) k/uL Basophils # 0.0 (0-0.2) k/uL Sodium 142 (137-145) mmol/L Potassium 4.5 (3.5-5.1) mmol/L Chloride 106 (98-107) mmol/L Carbon Dioxide 23 (22-30) mmol/L Anion Gap 13 mmol/L BUN 19 (9-20) mg/dL Creatinine 1.01 (0.66-1.25) mg/dL Est GFR (CKD-EPI)AfAm 79 (>60 ml/min/1.73 sqM) Est GFR (CKD-EPI)NonAf 68 (>60 ml/min/1.73 sqM) Glucose 126 H (74-99) mg/dL Plasma Lactic Acid Luiz 1.9 (0.7-2.0) mmol/L Calcium 9.4 (8.4-10.2) mg/dL Total Bilirubin 0.7 (0.2-1.3) mg/dL AST 28 (17-59) U/L ALT 26 (4-49) U/L Alkaline Phosphatase 92 (38-126) U/L Troponin I (0.000-0.034) ng/mL Total Protein 7.4 (6.3-8.2) g/dL Albumin 4.7 (3.5-5.0) g/dL Amylase 56 (30-110) U/L Lipase 24 (23-300) U/L Coronavirus (PCR) (Not Detectd) Influenza Type A RNA (Not Detectd) Influenza Type B (PCR) (Not Detectd) 06/11/22 06/11/22 06/11/22 Range/Units 15:40 15:40 15:40 WBC (3.8-10.6) k/uL RBC (4.30-5.90) m/uL Hgb (13.0-17.5) gm/dL Hct (39.0-53.0) % MCV (80.0-100.0) fL MCH (25.0-35.0) pg MCHC (31.0-37.0) g/dL RDW (11.5-15.5) % Plt Count (150-450) k/uL MPV Neutrophils % % Lymphocytes % % Monocytes % % Eosinophils % % Basophils % % Neutrophils # (1.3-7.7) k/uL Lymphocytes # (1.0-4.8) k/uL Monocytes # (0-1.0) k/uL Eosinophils # (0-0.7) k/uL Basophils # (0-0.2) k/uL Sodium (137-145) mmol/L Potassium (3.5-5.1) mmol/L Chloride (98-107) mmol/L Carbon Dioxide (22-30) mmol/L Anion Gap mmol/L BUN (9-20) mg/dL Creatinine (0.66-1.25) mg/dL Est GFR (CKD-EPI)AfAm (>60 ml/min/1.73 sqM) Est GFR (CKD-EPI)NonAf (>60 ml/min/1.73 sqM) Glucose (74-99) mg/dL Plasma Lactic Acid Luiz (0.7-2.0) mmol/L Calcium (8.4-10.2) mg/dL Total Bilirubin (0.2-1.3) mg/dL AST (17-59) U/L ALT (4-49) U/L Alkaline Phosphatase (38-126) U/L Troponin I <0.012 (0.000-0.034) ng/mL Total Protein (6.3-8.2) g/dL Albumin (3.5-5.0) g/dL Amylase (30-110) U/L Lipase (23-300) U/L Coronavirus (PCR) Not Detected (Not Detectd) Influenza Type A RNA Not Detected (Not Detectd) Influenza Type B (PCR) Not Detected (Not Detectd) Sinus rhythm with first-degree AV block. Ventricular rate 75 bpm, IN interval 211 ms, QRS duration 74 ms, QTC 403 ms. - Radiology Data Radiology results: report reviewed, image reviewed Disposition Clinical Impression: SBO (small bowel obstruction) Disposition: ADMITTED IP TO THIS [facility] Referrals: Steven Rice MD [Primary Care Provider] - 1-2 days
--- NOTE | 2022-06-11 17:04 | CT ---
EXAMINATION TYPE: CT abdomen pelvis w con DATE OF EXAM: 06/11/2022 COMPARISON: CT abdomen and pelvis March 28, 2022 and older studies HISTORY: abdominal pain, nausea, vomiting CT DLP: 889.9 mGycm, Automated Exposure Control for Dose Reduction was Utilized. CONTRAST: CT scan of the abdomen and pelvis is performed without oral and with IV Contrast, patient injected wi th 100 mL of Isovue 300. FINDINGS: LUNG BASES: Coronary artery calcification and/or stent. Dependent atelectasis. LIVER/GB: Visualized liver remains heterogeneously hypodense consistent with diffuse fatty infiltrati on. Cholecystectomy clips are redemonstrated. PANCREAS: No significant abnormality is seen. SPLEEN: No significant abnormality is seen. ADRENALS: No significant abnormality is seen. KIDNEYS: Scattered small simple-appearing thin-walled cysts throughout the bilateral kidneys are agai n seen. BOWEL: Stable small sized hiatal hernia. Suboptimal evaluation without enteric contrast. Incidental 2 .7 cm second portion duodenal diverticulum coronal image 48 redemonstrated. Fluid-filled stomach al ures upper limits of normal in size similar to prior study. No suspicious dilatation of the duodenal sweep. A few slightly prominent fluid-filled small bowel loops in the anterior abdomen are redemonstr ated with scattered air-fluid levels measuring up to 3.1 cm in size. Scattered colonic diverticula wi th greatest diverticulosis involving the redundant sigmoid colon. No CT evidence for acute diverticul itis. Nondistended ileal loops in the right lower quadrant. Nondistended proximal jejunal loops in th e left upper to mid abdomen. Focal eventration or hernia defect containing bowel in the midline axial image 55 is again seen. Prominent bowel loop entering and exiting this with air-fluid level is redem onstrated. No free air. PROSTATE/SEMINAL VESICLES: Mildly enlarged prostate consistent with BPH redemonstrated. LYMPH NODES: No greater than 1cm abdominal or pelvic lymph nodes are appreciated. OSSEOUS STRUCTURES: No significant abnormality is seen. OTHER: No significant additional abnormality is seen. IMPRESSION: Similar to prior study there are right-sided prominent small bowel loops with air-fluid l evels. Nondilated bowel is seen proximal and distal to this. Findings suggest partial small bowel obs truction in a probable internal hernia. No significant change from most recent prior CT.
[2022-06-11] MEDS ORDERED: KETOROLAC 15 MG/ML 1 ML VIAL IVP STA (17:34)
[2022-06-11] MEDS ORDERED: ACETAMINOPHEN TAB 325 MG TAB PO PRN (17:43)
[2022-06-11] MEDS ORDERED: MORPHINE SULFATE 4 MG/ML SYRINGE IV PRN (17:43)
[2022-06-11] MEDS ORDERED: KETOROLAC 15 MG/ML 1 ML VIAL IVP PRN (17:43)
[2022-06-11] MEDS ORDERED: NALOXONE 0.4 MG/ML 1 ML VIAL IV PRN (17:43)
[2022-06-11] MEDS ORDERED: IBUPROFEN 400 MG TAB PO PRN (17:43)
[2022-06-11] MEDS ORDERED: ONDANSETRON 4 MG/2 ML VIAL IVP PRN (17:43)
[2022-06-11] MEDS: ATORVASTATIN 40 MG TAB PO SCH (21:26)
[2022-06-11] MEDS: CYANOCOBALAMIN 500 MCG TAB PO SCH (21:26)
[2022-06-11] MEDS: TAMSULOSIN 0.4 MG CAP.ER.24H PO SCH (21:26)
[2022-06-11] MEDS: MONTELUKAST 10 MG TAB PO SCH (21:26)
[2022-06-11] MEDS: FAMOTIDINE 20 MG TAB PO PRN (21:26)
[2022-06-11] MEDS: METOPROLOL TARTRATE 12.5 MG TAB PO SCH (21:26)
[2022-06-11] MEDS: SODIUM CHLORIDE 0.9% 1,000 ML IV SCH (21:27)
[2022-06-12 00:38] LABS: Appearance,Urine Clear (Clear); Bilirubin,Urine Negative (Negative); Blood,Urine Negative (Negative); Color,Urine Yellow; Glucose,Urine (UA) Negative (Negative); Ketones,Urine Negative (Negative); Leukocyte Esterase,Urine Negative (Negative); Mucus,Urine Rare /hpf; Nitrite,Urine Negative (Negative); PH, Urine 5.5 (5.0-8.0); Protein,Urine 1+ (Negative); RBC,Urine <1 /hpf (0-5); Urobilinogen,Urine <2.0 mg/dL (<2.0); WBC,Urine 1 /hpf (0-5)
[2022-06-12 00:39] LABS: Specific Gravity,Urine >1.050 (1.001-1.035)
[2022-06-12] MEDS: SODIUM CHLORIDE 0.9% 1,000 ML IV SCH ×2 (09:26→10:04)
[2022-06-12] MEDS: FAMOTIDINE 20 MG TAB PO PRN (10:04)
[2022-06-12] MEDS: PANTOPRAZOLE 40 MG/10 ML VIAL IV SCH (10:05)
[2022-06-12] MEDS: METOPROLOL TARTRATE 12.5 MG TAB PO SCH ×2 (10:05→20:39)
[2022-06-12] MEDS: CLOPIDOGREL 75 MG TAB PO SCH (10:05)
[2022-06-12] MEDS: amLODIPine 5 MG TAB PO SCH (10:05)
--- NOTE | 2022-06-12 10:22 | P.HPIM ---
History of Present Illness This is a pleasant 86 years old male with multiple medical problems as below. Including history of recurrent small bowel obstruction with thought secondary to adhesions treated conservatively most of the time. Patient sent for nausea vomiting and diarrhea. Also with abdominal pain, Pain is periumbilical lactams comes and go ranging between 2-3/10 up to its 9/10. This morning he is passing gas but no bowel movement This denies smoking alcohol or illicit drugs Patient is afebrile and vitals are stable Labs showed mild leukocytosis . Vessel flaps unremarkable including CBC, BMP, INR, liver enzymes and troponin. Urine analysis is negative. C. diff is negative. influenza and Covid were negative CT of the abdomen and pelvis with contrast: Showing similar to prior study there are right sided prominent small bowel loops with air-fluid level. Nondilated bowel is seen proximal and distal to this. Findings suggest partial small bowel obstruction in a probable internal hernia EKG showing normal sinus rhythm at [address]-T changes Review of Systems Review of systems CONSTITUTIONAL: No fever, no malaise, no fatigue. HEENT: No recent visual problems or hearing problems. Denied any sore throat. CARDIOVASCULAR: No orthopnea, PND, no palpitations, no syncope. PULMONARY: No shortness of breath, no cough, no hemoptysis. -GASTROINTESTINAL: As above NEUROLOGICAL: No headaches, no weakness, no numbness. HEMATOLOGICAL: Denies any bleeding or petechiae. GENITOURINARY: Denies any burning micturition, frequency, or urgency. MUSCULOSKELETAL/RHEUMATOLOGICAL: Denies any joint pain, swelling, or any muscle pain. ENDOCRINE: Denies any polyuria or polydipsia. Past Medical History Past Medical History: Asthma, Coronary Artery Disease (CAD), Chest Pain / Angina, GERD/Reflux, GI Bleed, Hearing Disorder / Deafness, Hyperlipidemia, Hypertension, Liver Disease, Osteoarthritis (OA) Additional Past Medical History / Comment(s): Recurrent SBO d/t adhesions with conservative treatment and surgical treatment, mild leaky heart valve, bleeding ulcer/lower GI bleed many years ago with exsanguination and stayed in ICU/had transfusions then another less severe lower GI bleed a few years later, upper GI bleed, duodenal ulcer, hiatal hernia, hepatitis C d/t blood transfusion-2nd treatment successful, some recent short term memory issues/tremors in hands and balance issues past few months being worked up, constipation, diverticulitis and past pre cancerous polypectomies-last colonoscopy was normal in 2018, low back pain, L shoulder pain, gout-saw microarray analyst in past, 06/2018 shingelles, [place] bilaterally, ventral hernia. History of Any Multi-Drug Resistant Organisms: None Reported Past Surgical History: Bowel Resection, Cholecystectomy, Heart Catheterization With Stent, Orthopedic Surgery Additional Past Surgical History / Comment(s): 06/2018 PCI with stent, 1999 PCI with 2 stents, laparotomy with lysis of adhesions, R rotator cuff repair, R knee arthroscopy, R upper chest lipoma removed, bilateral cataract removals/lens implants, EGD and colonoscopies with pre cancerous polypectomies-last colonoscopy in 2018 was normal per pt. Past Anesthesia/Blood Transfusion Reactions: Blood Transfusion Reaction Additional Past Anesthesia/Blood Transfusion Reaction / Comment(s): CONTRACTED HEP C FROM A BLOOD TRANSFUSION 35-40 YEARS AGO. Date of Last Stent Placement:: JUN 2018 Past Psychological History: No Psychological Hx Reported Additional Psychological History / Comment(s): Pt resides at home alone, daughter lives close by. Smoking Status: Former smoker Past Alcohol Use History: None Reported Additional Past Alcohol Use History / Comment(s): Patient was a smoker from [id number]. He drinks a glass of wine on special occasions. Past Drug Use History: None Reported - Past Family History Mother Family Medical History: Cancer Additional Family Medical History / Comment(s): Other at age 80 from acute kidney injury following surgery. Patient had bladder suspension surgery and she developed to have possibly uterine cancer however she ended up with renal failure refused hemodialysis Father Family Medical History: Cancer, Deep Vein Thrombosis (DVT), Pulmonary Embolus Additional Family Medical History / Comment(s): LUNG CANCER. Father in his mid 60s due to blood clots with history of bladder cancer . The cause of pulmonary embolism. Brother(s) Family Medical History: Cancer, Coronary Artery Disease (CAD) Additional Family Medical History / Comment(s): Patient has one brother with history of non-Hodgkin's lymphoma diagnosed 15 YEARS AGO. He does not have any sisters. He has adult children with no major medical problem basically 2 sons and a daughter. Medications and Allergies Home Medications Medication Instructions Recorded Confirmed Type Omeprazole 40 mg PO DAILY 02/14/19 06/11/22 History Calcium Citrate/Vitamin D3 1 tab PO DAILY 02/23/20 06/11/22 History [Citracal + D Maximum Caplet] Metoprolol Tartrate [Lopressor] 12.5 mg PO BID 02/23/20 06/11/22 History Vitamin B Complex 1 cap PO CLAUDIO 02/23/20 06/11/22 History Montelukast Sodium [Singulair] 10 mg PO HS 03/15/20 06/11/22 History Cyanocobalamin (Vitamin B-12) 1,000 mcg PO MOTUWETHFRSA 02/01/22 06/11/22 History [Vitamin B-12] Famotidine 20 mg PO BID PRN 02/01/22 06/11/22 History Tamsulosin [Flomax] 0.4 mg PO HS 02/01/22 06/11/22 History amLODIPine [Norvasc] 5 mg PO DAILY 02/01/22 06/11/22 History Atorvastatin [Lipitor] 40 mg PO HS #30 tablet 02/04/22 06/11/22 Rx Clopidogrel [Plavix] 75 mg PO DAILY 30 Days #30 tab 05/07/22 06/11/22 Rx Allergies Allergy/AdvReac Type Severity Reaction Status Date / Time atenolol Allergy Syncope Verified 06/11/22 17:24 Penicillins Allergy Rash/Hives Verified 06/11/22 17:24 prednisone Allergy Rash/Hives Verified 06/11/22 17:24 Physical Exam Vitals: Vital Signs Temp Pulse Pulse Resp BP BP Pulse Ox 06/12/22 08:00 98.7 F 61 16 117/66 95 06/12/22 02:19 98.0 F 60 17 114/66 93 L 06/11/22 19:07 98.9 F 74 18 125/71 93 L 06/11/22 18:24 97.7 F 73 16 146/87 98 06/11/22 14:40 99.3 F 86 18 128/79 97 Intake and Output 06/11/22 06/12/22 06/12/22 22:59 06:59 14:59 Other: Voiding Method Toilet Urinal # Voids 2 Weight 73.482 kg GENERAL: The patient is alert and oriented x3, not in any acute distress. Well developed, well nourished. HEENT: Pupils are round and equally reacting to light. EOMI. No scleral icterus. No conjunctival pallor. Normocephalic, atraumatic. No pharyngeal erythema. No thyromegaly. CARDIOVASCULAR: S1 and S2 present. No murmurs, rubs, or gallops. PULMONARY: Chest is clear to auscultation, no wheezing or crackles. -ABDOMEN: Soft, mild periumbilical tenderness with no rebound tenderness, mildly distended, normoactive bowel sounds. No palpable organomegaly. MUSCULOSKELETAL: No joint swelling or deformity. EXTREMITIES: No cyanosis, clubbing, or pedal edema. NEUROLOGICAL: Gross neurological examination did not reveal any focal deficits. SKIN: No rashes. no petechiae. Results CBC & Chem 7: 06/11/22 15:40 06/11/22 15:40 Labs: Abnormal Lab Results - Last 24 Hours (Table) 06/11/22 06/11/22 06/12/22 Range/Units 15:40 15:40 00:10 WBC 14.0 H (3.8-10.6) k/uL Neutrophils # 11.4 H (1.3-7.7) k/uL Glucose 126 H (74-99) mg/dL Ur Specific [place] >1.050 H (1.001-1.035) Urine Protein 1+ H (Negative) Urine Mucus Rare H (None) /hpf Thrombosis Risk Factor Assmnt - Choose All That Apply Each Risk Factor Represents 3 Points: Age 75 years or older Thrombosis Risk Factor Assessment Total Risk Factor Score: 3 Thrombosis Risk Factor Assessment Level: Moderate Risk Assessment and Plan Assessment: -Recurrent small bowel obstruction, currently partial bowel obstruction is suspected as CT of the abdomen suggest partial small bowel obstruction in a probable internal hernia -History of coronary artery disease, status post stent placement -Hypertension -Hyperlipidemia -History of osteoarthritis -History of liver disease -History of hiatal hernia -History of GI bleed -History of tremor of the hands Plan: continue ith bowel rest pain management Surgery team consult, who usually sees Dr. Maxwell Continue with IV fluid currently on normal saline at 75 mL/h Labs and medication were reviewed.. Continue same treatment. Continue with symptomatic treatment. Resume home medication. Monitor labs and vitals. DVT a nd GI prophylaxis. Further recommendations as per clinical course of the patient DVT prophylaxis: Subcutaneous heparin GI Prophylaxis: ppi Prognosis is guarded
--- NOTE | 2022-06-12 15:04 | P.GSCN ---
History of Present Illness Consult date: 06/12/22 Reason for Consult: pSBO History of present illness: This is a pleasant 86 years old male with multiple medical problems as below. Including history of recurrent small bowel obstruction with thought secondary to adhesions treated conservatively most of the time. Patient sent for nausea vomiting and diarrhea. Also with abdominal pain, Pain is periumbilical lactams comes and go ranging between 2-3/10 up to its 9/10. This morning he is passing gas but no bowel movement This denies smoking alcohol or illicit drugs Patient is afebrile and vitals are stable Labs showed mild leukocytosis . Vessel flaps unremarkable including CBC, BMP, INR, liver enzymes and troponin. Urine analysis is negative. C. diff is negative. influenza and Covid were negative CT of the abdomen and pelvis with contrast: Showing similar to prior study there are right sided prominent small bowel loops with air-fluid level. Nondilated bowel is seen proximal and distal to this. Findings suggest partial small bowel obstruction Review of Systems - Constitutional Reports fatigue, Denies chills, Denies fever, Denies night sweats, Denies sweats, Denies weakness - Cardiovascular Reports high blood pressure, Denies chest pain, Denies edema, Denies irregular heart beat, Denies leg edema - Respiratory Denies congestion, Denies cough with sputum, Denies dyspnea - Gastrointestinal Reports abdominal pain, Reports belching, Reports loss of appetite, Reports nausea, Reports vomiting, Denies BRBPR, Denies change in bowel habits, Denies coffee ground emesis, Denies constipation, Denies diarrhea, Denies hematochezia, Denies jaundice, Denies melena - Genitourinary Reports polyuria, Denies urinary frequency, Denies urinary hesitancy, Denies urinary retention - Neurological Denies change in mentation, Denies confusion, Denies numbness Past Medical History Past Medical History: Asthma, Coronary Artery Disease (CAD), Chest Pain / Angina, GERD/Reflux, GI Bleed, Hearing Disorder / Deafness, Hyperlipidemia, Hypertension, Liver Disease, Osteoarthritis (OA) Additional Past Medical History / Comment(s): Recurrent SBO d/t adhesions with conservative treatment and surgical treatment, mild leaky heart valve, bleeding ulcer/lower GI bleed many years ago with exsanguination and stayed in ICU/had transfusions then another less severe lower GI bleed a few years later, upper GI bleed, duodenal ulcer, hiatal hernia, hepatitis C d/t blood transfusion-2nd treatment successful, some recent short term memory issues/tremors in hands and balance issues past few months being worked up, constipation, diverticulitis and past pre cancerous polypectomies-last colonoscopy was normal in 2018, low back pain, L shoulder pain, gout-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 History of Any Multi-Drug Resistant Organisms: None Reported Past Surgical History: Bowel Resection, Cholecystectomy, Heart Catheterization With Stent, Orthopedic Surgery Additional Past Surgical History / Comment(s): 06/2018 PCI with stent, 1999 PCI with 2 stents, laparotomy with lysis of adhesions, R rotator cuff repair, R knee arthroscopy, R upper chest lipoma removed, bilateral cataract removals/lens implants, EGD and colonoscopies with pre cancerous polypectomies-last colonoscopy in 2018 was normal per pt. Past Anesthesia/Blood Transfusion Reactions: Blood Transfusion Reaction Additional Past Anesthesia/Blood Transfusion Reaction / Comm: CONTRACTED HEP C FROM A BLOOD TRANSFUSION 35-40 YEARS AGO. Date of Last Stent Placement:: JUN 2018 Past Psychological History: No Psychological Hx Reported Additional Psychological History / Comment(s): Pt resides at home alone, daughter lives close by. Smoking Status: Former smoker Past Alcohol Use History: None Reported Additional Past Alcohol Use History / Comment(s): Patient was a smoker from [id number]. He drinks a glass of wine on special occasions. Past Drug Use History: None Reported - Past Family History Mother Family Medical History: Cancer Additional Family Medical History / Comment(s): Other at age 80 from acute kidney injury following surgery. Patient had bladder suspension surgery and she developed to have possibly uterine cancer however she ended up with renal failure refused hemodialysis Father Family Medical History: Cancer, Deep Vein Thrombosis (DVT), Pulmonary Embolus Additional Family Medical History / Comment(s): LUNG CANCER. Father in his mid 60s due to blood clots with history of bladder cancer . The cause of pulmonary embolism. Brother(s) Family Medical History: Cancer, Coronary Artery Disease (CAD) Additional Family Medical History / Comment(s): Patient has one brother with history of non-Hodgkin's lymphoma diagnosed 15 YEARS AGO. He does not have any sisters. He has adult children with no major medical problem basically 2 sons and a daughter. Medications and Allergies Home Medications Medication Instructions Recorded Confirmed Type Omeprazole 40 mg PO DAILY 02/14/19 06/11/22 History Calcium Citrate/Vitamin D3 1 tab PO DAILY 02/23/20 06/11/22 History [Citracal + D Maximum Caplet] Metoprolol Tartrate [Lopressor] 12.5 mg PO BID 02/23/20 06/11/22 History Vitamin B Complex 1 cap PO CLAUDIO 02/23/20 06/11/22 History Montelukast Sodium [Singulair] 10 mg PO HS 03/15/20 06/11/22 History Cyanocobalamin (Vitamin B-12) 1,000 mcg PO MOTUWETHFRSA 02/01/22 06/11/22 History [Vitamin B-12] Famotidine 20 mg PO BID PRN 02/01/22 06/11/22 History Tamsulosin [Flomax] 0.4 mg PO HS 02/01/22 06/11/22 History amLODIPine [Norvasc] 5 mg PO DAILY 02/01/22 06/11/22 History Atorvastatin [Lipitor] 40 mg PO HS #30 tablet 02/04/22 06/11/22 Rx Clopidogrel [Plavix] 75 mg PO DAILY 30 Days #30 tab 05/07/22 06/11/22 Rx Allergies Allergy/AdvReac Type Severity Reaction Status Date / Time atenolol Allergy Syncope Verified 06/11/22 17:24 Penicillins Allergy Rash/Hives Verified 06/11/22 17:24 prednisone Allergy Rash/Hives Verified 06/11/22 17:24 Surgical - Exam Vital Signs Temp Pulse Resp BP Pulse Ox 99.3 F 86 18 128/79 97 06/11/22 14:40 06/11/22 14:40 06/11/22 14:40 06/11/22 14:40 06/11/22 14:40 - Eyes PERRL, normal ocular movement, no icteric, deviation - Neck no masses, no bruits, trachea midline, no lymphadectomy, no venous distension - Respiratory normal expansion - Cardiovascular Rhythm: regular Heart Sounds: normal: S1, S2 - Abdomen Abdomen: soft, non tender, no tender, surgical scars, no masses, no guarding, no rigid, no rebound, distended Hernia: none - Rectum Rectum: normal sphincter tone, no hemorrhoids, no tenderness Results - Labs 06/11/22 15:40 06/11/22 15:40 Abnormal Lab Results - Last 24 Hours (Table) 06/11/22 06/11/22 06/12/22 Range/Units 15:40 15:40 00:10 WBC 14.0 H (3.8-10.6) k/uL Neutrophils # 11.4 H (1.3-7.7) k/uL Glucose 126 H (74-99) mg/dL Ur Specific [place] >1.050 H (1.001-1.035) Urine Protein 1+ H (Negative) Urine Mucus Rare H (None) /hpf Diabetes panel 06/11/22 Range/Units 15:40 Sodium 142 (137-145) mmol/L Potassium 4.5 (3.5-5.1) mmol/L Chloride 106 (98-107) mmol/L Carbon Dioxide 23 (22-30) mmol/L BUN 19 (9-20) mg/dL Creatinine 1.01 (0.66-1.25) mg/dL Glucose 126 H (74-99) mg/dL Calcium 9.4 (8.4-10.2) mg/dL AST 28 (17-59) U/L ALT 26 (4-49) U/L Alkaline Phosphatase 92 (38-126) U/L Total Protein 7.4 (6.3-8.2) g/dL Albumin 4.7 (3.5-5.0) g/dL Calcium panel 06/11/22 Range/Units 15:40 Calcium 9.4 (8.4-10.2) mg/dL Albumin 4.7 (3.5-5.0) g/dL Pituitary panel 06/11/22 Range/Units 15:40 Sodium 142 (137-145) mmol/L Potassium 4.5 (3.5-5.1) mmol/L Chloride 106 (98-107) mmol/L Carbon Dioxide 23 (22-30) mmol/L BUN 19 (9-20) mg/dL Creatinine 1.01 (0.66-1.25) mg/dL Glucose 126 H (74-99) mg/dL Calcium 9.4 (8.4-10.2) mg/dL Adrenal panel 06/11/22 Range/Units 15:40 Sodium 142 (137-145) mmol/L Potassium 4.5 (3.5-5.1) mmol/L Chloride 106 (98-107) mmol/L Carbon Dioxide 23 (22-30) mmol/L BUN 19 (9-20) mg/dL Creatinine 1.01 (0.66-1.25) mg/dL Glucose 126 H (74-99) mg/dL Calcium 9.4 (8.4-10.2) mg/dL Total Bilirubin 0.7 (0.2-1.3) mg/dL AST 28 (17-59) U/L ALT 26 (4-49) U/L Alkaline Phosphatase 92 (38-126) U/L Total Protein 7.4 (6.3-8.2) g/dL Albumin 4.7 (3.5-5.0) g/dL Assessment and Plan (1) Small bowel obstruction Current Visit: Yes Status: Acute Code(s): K56.609 - UNSP INTESTNL OBST, UNSP TO PARTIAL VERSUS COMPLETE OBST SNOMED Code(s): 070044920 Plan: no immediate surgical intervention is warranted will treat conservatively Place NGT Place NGT to LIS NPO Hydrate the patient on exam today no acute abdomen will do serial abdominal exams will continue to follow
[2022-06-12] MEDS: CYANOCOBALAMIN 500 MCG TAB PO SCH (17:31)
[2022-06-12] MEDS: MONTELUKAST 10 MG TAB PO SCH (20:39)
[2022-06-12] MEDS: ATORVASTATIN 40 MG TAB PO SCH (20:39)
[2022-06-12] MEDS: HEPARIN SODIUM,PORCINE/PF 5,000 UNIT/0.5 ML SYRINGE SQ SCH (20:39)
[2022-06-12] MEDS: TAMSULOSIN 0.4 MG CAP.ER.24H PO SCH (20:39)
[2022-06-13] MEDS: SODIUM CHLORIDE 0.9% 1,000 ML IV SCH ×2 (02:53→12:16)
[2022-06-13] MEDS: METOPROLOL TARTRATE 12.5 MG TAB PO SCH ×2 (08:58→21:36)
[2022-06-13] MEDS: CLOPIDOGREL 75 MG TAB PO SCH (08:58)
[2022-06-13] MEDS: HEPARIN SODIUM,PORCINE/PF 5,000 UNIT/0.5 ML SYRINGE SQ SCH ×2 (08:58→21:36)
[2022-06-13] MEDS: PANTOPRAZOLE 40 MG/10 ML VIAL IV SCH (08:58)
[2022-06-13] MEDS: amLODIPine 5 MG TAB PO SCH (08:58)
[2022-06-13] MEDS: CYANOCOBALAMIN 500 MCG TAB PO SCH (17:15)
[2022-06-13] MEDS: MONTELUKAST 10 MG TAB PO SCH (21:36)
[2022-06-13] MEDS: TAMSULOSIN 0.4 MG CAP.ER.24H PO SCH (21:36)
[2022-06-13] MEDS: ATORVASTATIN 40 MG TAB PO SCH (21:36)
[2022-06-14 01:48] LABS: Cryptosporidium Antigen Negative (Negative)
--- NOTE | 2022-06-14 02:46 | PN ---
PROGRESS NOTE DATE OF SERVICE: 06/13/2022 SUBJECTIVE: This 86-year-old gentleman admitted with partial small bowel obstruction, is being closely monitored. The patient still has some diarrhea. Surgery is not planning any mediate surgery. OBJECTIVE: VITAL SIGNS: Pulse 63, blood pressure n, respirations 17. CHEST: Clear to auscultation. CARDIOVASCULAR: S1, S2. ABDOMEN: Soft, minimal distention, nontender. LABORATORY DATA: Reviewed. CAT scan reviewed personally by me. ASSESSMENT: 1. Partial small-bowel obstruction. 2. Diarrhea. 3. Increased WBC. 4. Multiple medical issues. RECOMMENDATION: I recommend to continue current medications, symptomatic treatment. Otherwise, continue with conservative line of management. Repeat labs in the morning. Advance diet per Surgery. Further recommendations to follow. MMODL / IJN: [id number] / MTDD
[2022-06-14] MEDS: SODIUM CHLORIDE 0.9% 1,000 ML IV SCH ×2 (04:35→09:13)
[2022-06-14] MEDS: HEPARIN SODIUM,PORCINE/PF 5,000 UNIT/0.5 ML SYRINGE SQ SCH ×2 (09:07→22:08)
[2022-06-14] MEDS: METOPROLOL TARTRATE 12.5 MG TAB PO SCH ×2 (09:07→22:09)
[2022-06-14] MEDS: CLOPIDOGREL 75 MG TAB PO SCH (09:07)
[2022-06-14] MEDS: amLODIPine 5 MG TAB PO SCH (09:07)
[2022-06-14] MEDS: PANTOPRAZOLE 40 MG/10 ML VIAL IV SCH (09:07)
[2022-06-14 11:08] LABS: Basophils # (A) 0.04 X 10*3/uL (0.00-0.10); Basophils % (A) 0.5 %; Eosinophils # (A) 0.48 X 10*3/uL (0.04-0.35); Eosinophils % (A) 5.8 %; HCT 39.5 % (39.6-50.0); HGB 13.4 g/dL (13.0-17.0); Immature Grans, Automated 0.4 %; Lymphocytes # (A) 2.07 X 10*3/uL (0.90-5.00); MCHC 33.9 g/dL (32.0-37.0); MCV 91.4 fL (80.0-97.0); Mean Platelet Volume 10.1 fL (9.5-12.2); Monocytes # (A) 0.82 X 10*3/uL (0.20-1.00); Monocytes % (A) 9.9 %; NRBC Per 100 WBC 0 /100 WBCS (0.0-0.0); Neutrophils # (A) 4.84 X 10*3/uL (1.80-7.70); Neutrophils % (A) 58.4 %; Platelet Count 209 X 10*3/uL (140-440); RBC 4.32 X 10*6/uL (4.40-5.60); RDW 12.9 % (11.5-14.5); WBC 8.28 X 10*3/uL (4.50-10.00)
[2022-06-14 12:26] LABS: African American GFR (CKD) 71.1 (60.0-200.0); Anion Gap 9.3 mmol/L (10.00-18.00); BUN/Creat Ratio 9.18 Ratio (12.00-20.00); Blood Urea Nitrogen 10.1 mg/dL (9.0-27.0); Calcium 8.6 mg/dL (8.7-10.3); Carbon Dioxide 18.7 mmol/L (20.0-27.5); Non-African American GFR(CKD) 61.3 (60.0-200.0); Potassium 3.7 mmol/L (3.5-5.5)
[2022-06-14] MEDS: MONTELUKAST 10 MG TAB PO SCH (22:09)
[2022-06-14] MEDS: TAMSULOSIN 0.4 MG CAP.ER.24H PO SCH (22:09)
[2022-06-14] MEDS: ATORVASTATIN 40 MG TAB PO SCH (22:09)
--- NOTE | 2022-06-15 02:53 | PN ---
PROGRESS NOTE DATE OF SERVICE: 06/14/2022 SUBJECTIVE: This 86-year-old gentleman, who was admitted with possible partial bowel obstruction, is improving significantly. Surgery is following the patient. Recommending conservative line of management. No chest pain. No palpitations. No fever. OBJECTIVE: VITAL SIGNS: Pulse is 55, blood pressure 110/60, respirations 18. CHEST: Clear to auscultation. CARDIOVASCULAR: S1, S2. ABDOMEN: Soft, nontender. LABORATORY DATA: Reviewed. ASSESSMENT: 1. Partial small bowel obstruction, possibly. 2. Diarrhea, improving. 3. Increased WBC. 4. Multiple medical issues. RECOMMENDATIONS: I recommend to continue current medications, continue symptomatic treatment. Otherwise, closely follow with Surgery. Advance diet per Surgery. Once the patient is improving, possibly discharge home within 24 hours. Further recommendations to follow. MMODL / IJN: [id number] /
[2022-06-15] MEDS: SODIUM CHLORIDE 0.9% 1,000 ML IV SCH (04:21)
[2022-06-15 07:15] VITALS: RESP 16
[2022-06-15] MEDS: PANTOPRAZOLE 40 MG/10 ML VIAL IV SCH (08:30)
[2022-06-15] MEDS: amLODIPine 5 MG TAB PO SCH (08:58)
[2022-06-15] MEDS: CLOPIDOGREL 75 MG TAB PO SCH (08:58)
[2022-06-15] MEDS: HEPARIN SODIUM,PORCINE/PF 5,000 UNIT/0.5 ML SYRINGE SQ SCH (08:58)
[2022-06-15] MEDS: METOPROLOL TARTRATE 12.5 MG TAB PO SCH (08:58)
[2022-06-15 15:29] VITALS: BP 127/68; PULSE 58; TEMP 97.7
--- NOTE | 2022-06-16 10:24 | P.DS ---
Providers Date of admission: 06/11/22 17:45 Expected date of discharge: 06/15/22 Attending physician: Choco Travis Consults: 06/12/22 10:20 Consult Physician Urgent Consulting Provider: Alysia Maxwell Consult Reason/Comments: sbo Do you want consulting provider notified?: Yes Primary care physician: Steven [facility] Course: Final diagnosis Partial small bowel obstruction, resolved Diarrhea, improved Increased WBC, possibly secondary to above History of coronary artery disease [place] GERD History of GI bleed Hyperlipidemia Hypertension History of recurrent small bowel obstructions with adhesions Full code Discharge disposition Patient is being discharged in a stable condition with guarded prognosis to . Patient will follow-up with Dr. Rice in the outpatient setting upon discharge. Total time taken is greater than 35 minutes. Hospital course This is a 86-year-old male who was recently admitted with abdominal pain along with nausea and vomiting have a partial bowel obstruction that improved significantly with conservative management. Patient was evaluated by surgery with no surgical interventions planned. Patient has been cleared tolerating diet and is passing gas and having bowel movements. Patient instructed to follow-up with primary care provider on discharge. Currently no reports of chest pain, shortness of breath, or palpitations. Patient is afebrile. No reports of nausea or vomiting and patient is tolerating diet. Patient will be discharged home today. Guarded prognosis. Physical exam: Gen: This is a 86-year-old male awake, alert and oriented 3, well-developed, well-nourished. HEENT: Head is atraumatic, normocephalic. Pupils equal, round. Sclerae is anicteric. NECK: Supple. No JVD. No lymphadenopathy. No thyromegaly. LUNGS: Clear to auscultation. No wheezes or rhonchi. No intercostal retractions. HEART: Regular rate and rhythm. No murmur. ABDOMEN: Soft. Bowel sounds are present. No masses. No tenderness. EXTREMITIES: No pedal edema. No calf tenderness. NEUROLOGICAL: Patient is awake, alert and oriented x3. Cranial nerves 2 through 12 are grossly intact. Please refer to medication reconciliation sheet for a list of medications. The impression and plan of care has been dictated by Kia Ramos, Nurse Practitioner as directed. Dr. Travis, , I have performed a history and examination and MDM of this patient, discussed the same with the dictator, and agree with the dictator's assessment and plan as written ,documented as a scribe. Based on total visit time, I have performed more than 50% of the visit. Patient Condition at Discharge: Stable Plan - Discharge Summary Discharge Rx Participant: No New Discharge Prescriptions: New Acetaminophen Tab [Tylenol] 650 mg PO Q6HR PRN tab PRN Reason: Mild Pain Or Fever > 100.5 Continue Omeprazole 40 mg PO DAILY Metoprolol Tartrate [Lopressor] 12.5 mg PO BID Vitamin B Complex 1 cap PO CLAUDIO Calcium Citrate/Vitamin D3 [Citracal + D Maximum Caplet] 1 tab PO DAILY Montelukast Sodium [Singulair] 10 mg PO HS amLODIPine [Norvasc] 5 mg PO DAILY Famotidine 20 mg PO BID PRN PRN Reason: Heartburn Tamsulosin [Flomax] 0.4 mg PO HS Atorvastatin [Lipitor] 40 mg PO HS #30 tablet Cyanocobalamin (Vitamin B-12) [Vitamin B-12] 1,000 mcg PO MOTUWETHFRSA Clopidogrel [Plavix] 75 mg PO DAILY 30 Days #30 tab Discharge Medication List Omeprazole 40 mg PO DAILY 02/14/19 [History] Calcium Citrate/Vitamin D3 [Citracal + D Maximum Caplet] 1 tab PO DAILY 02/23/20 [History] Metoprolol Tartrate [Lopressor] 12.5 mg PO BID 02/23/20 [History] Vitamin B Complex 1 cap PO CLAUDIO 02/23/20 [History] Montelukast Sodium [Singulair] 10 mg PO HS 03/15/20 [History] Cyanocobalamin (Vitamin B-12) [Vitamin B-12] 1,000 mcg PO MOTUWETHFRSA 02/01/22 [History] Famotidine 20 mg PO BID PRN 02/01/22 [History] Tamsulosin [Flomax] 0.4 mg PO HS 02/01/22 [History] amLODIPine [Norvasc] 5 mg PO DAILY 02/01/22 [History] Atorvastatin [Lipitor] 40 mg PO HS #30 tablet 02/04/22 [Rx] Clopidogrel [Plavix] 75 mg PO DAILY 30 Days #30 tab 05/07/22 [Rx] Acetaminophen Tab [Tylenol] 650 mg PO Q6HR PRN tab 06/15/22 [Rx] Follow up Appointment(s)/Referral(s): Steven Rice MD [Primary Care Provider] - 06/22/22 9:00 am Activity/Diet/Wound Care/Special Instructions: Activity Limited until follow-up Follow-up with primary care provider discharge Continue current diet Discharge Disposition: HOME SELF-CARE
== END 2022-06-15 15:44 | disposition home or self-care (01) | DRG 390 ==
LOC: EC 13:46 → 4SSUR 17:45
PROVIDERS: ADMIT Hospitalist; ATTEND Hospitalist
DX: K56.51 Intestinal adhesions [bands], with partial obstruction (principal); Z20.822 Contact with and (suspected) exposure to COVID-19; I10 Essential (primary) hypertension; I25.10 Atherosclerotic heart disease of native coronary artery without angina pectoris; K21.9 Gastro-esophageal reflux disease without esophagitis; E78.5 Hyperlipidemia, unspecified; J45.909 Unspecified asthma, uncomplicated; H91.90 Unspecified hearing loss, unspecified ear; D72.829 Elevated white blood cell count, unspecified; M19.90 Unspecified osteoarthritis, unspecified site; M10.9 Gout, unspecified; M54.50 Low back pain, unspecified; M25.512 Pain in left shoulder; R25.1 Tremor, unspecified; Z95.5 Presence of coronary angioplasty implant and graft; Z88.0 Allergy status to penicillin; Z88.8 Allergy status to other drugs, medicaments and biological substances; Z79.899 Other long term (current) drug therapy; B19.20 Unspecified viral hepatitis C without hepatic coma; I44.0 Atrioventricular block, first degree; Z79.02 Long term (current) use of antithrombotics/antiplatelets; Z86.16 Personal history of COVID-19; R19.7 Diarrhea, unspecified; Z86.010 Personal history of colon polyps; Z87.19 Personal history of other diseases of the digestive system; Z87.11 Personal history of peptic ulcer disease; Z87.891 Personal history of nicotine dependence; Z86.19 Personal history of other infectious and parasitic diseases; Z80.8 Family history of malignant neoplasm of other organs or systems; Z80.0 Family history of malignant neoplasm of digestive organs; Z80.1 Family history of malignant neoplasm of trachea, bronchus and lung; Z82.49 Family history of ischemic heart disease and other diseases of the circulatory system; Z80.52 Family history of malignant neoplasm of bladder; Z80.7 Family history of other malignant neoplasms of lymphoid, hematopoietic and related tissues; Z96.1 Presence of intraocular lens; Z98.42 Cataract extraction status, left eye; Z98.41 Cataract extraction status, right eye; Z63.4 Disappearance and death of family member
CPT/HCPCS: 36415; 74177; 80048; 80053; 81001; 82150; 83605; 83630; 83690; 84484; 85025; 87045; 87046; 87324; 87328; 87329; 87502; 87635; 93005; 96361; 96374; 96375; 99285

== ENCOUNTER → 2022-08-26 | Outpatient (CLI) | payer MEDICARE ==
--- NOTE | 2022-08-27 04:03 | MR ---
EXAMINATION TYPE: MR angio head wo/neck wo/w con DATE OF EXAM: 08/26/2022 COMPARISON: None HISTORY: History of transient ischemic attack, cerebral hemorrhage, dizziness. CONTRAST: Standard multiplanar, multisequence MRI departmental protocol images were obtained without contrast a nd with 7 mL intravenous Gadavist gadolinium contrast. MR angiographic images were obtained of the intracerebral arterial circulation. MR angiographic image s were obtained of the cervical carotid and vertebral arteries. There is IV contrast. FINDINGS: There is arterial flow in the anterior middle and posterior cerebral arteries bilaterally. No mass ef fect. No evidence of intracranial aneurysm or neovascularity. No evidence of hemodynamic stenosis. There is arterial flow in the common internal and external carotid arteries bilaterally. There is wid e patency of the carotid artery bifurcations. There is arterial flow in both vertebral arteries. No e vidence of carotid or vertebral artery aneurysm or dissection. No evidence of stenosis. No mass effec t. There is normal branching pattern of the great vessels on the aortic arch. There is bilateral arteria l flow in the subclavian arteries. Urinary cartilage has normal size without evidence of aneurysm. As cending aorta measures 2.8 cm. IMPRESSION: Negative MR angiogram of the brain. Negative MR angiography of the neck.
--- NOTE | 2022-08-27 04:09 | MR ---
EXAMINATION TYPE: MR brain wo con DATE OF EXAM: 08/26/2022 COMPARISON: 05/06/2022 HISTORY: History of transient ischemic attack, cerebral hemorrhage, dizziness. Multiplanar multi echo imaging of the brain performed without contrast. There is diffuse cerebral cortical atrophy. There is no mass effect or midline shift. No sign of intr acranial hemorrhage. Diffusion images show no evidence of an acute infarct. There is coalescent increased signal adjacent to the lateral ventricles measuring up to 1 cm in thick ness. There are small foci of increased signal in the flo bilaterally measuring up to 3 mm. The cere bellum is intact. No evidence of posterior fossa mass. There is thinning of the corpus callosum. Sell a turcica appears normal. No evidence of orbital mass. IMPRESSION: Diffuse periventricular white matter signal changes could relate to microvascular ischemia or demyeli nating disease. Cerebral atrophy. Mild hydrocephalus. No evidence of acute infarct. No significant ch agapito compared to the old exam.
== END | disposition home or self-care (01) ==
LOC: RADMRIMAIN 21:00
PROVIDERS: ATTEND Physician Assistant
DX: I61.6 Nontraumatic intracerebral hemorrhage, multiple localized (principal); G31.9 Degenerative disease of nervous system, unspecified; G91.9 Hydrocephalus, unspecified; R42 Dizziness and giddiness; Z86.73 Personal history of transient ischemic attack (TIA), and cerebral infarction without residual deficits
CPT/HCPCS: 70544; 70549; 70551; A9585

== ENCOUNTER → 2022-12-04 | Outpatient (CLI) | payer MEDICARE ==
[2022-12-04 21:07] LABS: ALT 28 U/L (10-49); AST 24 U/L (14-35); African American GFR (CKD) 70.6 (60.0-200.0); Albumin 4.2 g/dL (3.8-4.9); Alkaline Phosphatase 89 U/L (41-126); BUN/Creat Ratio 14.91 Ratio (12.00-20.00); Blood Urea Nitrogen 16.4 mg/dL (9.0-27.0); Calcium 9.3 mg/dL (8.7-10.3); Carbon Dioxide 27.6 mmol/L (20.0-27.5); Chloride 107 mmol/L (96-109); Chol/HDL Ratio 2.81 Ratio; Globulin 2.1 g/dL (1.6-3.3); Glucose 85 mg/dL (70-110); LDL Cholesterol,Calculated 55.6 mg/dL (0.0-131.0); Non-African American GFR(CKD) 60.9 (60.0-200.0); Potassium 4.2 mmol/L (3.5-5.5); Sodium 143 mmol/L (135-145); Total Protein 6.3 g/dL (6.2-8.2)
== END | disposition home or self-care (01) ==
LOC: LABWHC1 10:26
PROVIDERS: ATTEND Internal Medicine Interventional Cardiology
DX: E78.2 Mixed hyperlipidemia (principal)
CPT/HCPCS: 36415; 80053; 80061

== ENCOUNTER → 2023-05-24 | Outpatient (CLI) | payer MEDICARE ==
[2023-05-24 15:53] LABS: ALT 20 U/L (10-49); AST 19 U/L (14-35); Chol/HDL Ratio 2.83 Ratio; LDL Cholesterol,Calculated 55.8 mg/dL (0.0-131.0)
== END | disposition home or self-care (01) ==
LOC: LABWHC1 08:53
PROVIDERS: ATTEND Internal Medicine Interventional Cardiology
DX: E78.2 Mixed hyperlipidemia (principal)
CPT/HCPCS: 36415; 80061; 84450; 84460

== ENCOUNTER → 2023-06-01 | Outpatient (CLI) | payer MEDICARE ==
--- NOTE | 2023-06-01 14:56 | MM ---
Reason for Exam: Clinical finding. Last mammogram was performed 7 year(s) and 4 month(s) ago. Indicated Problems: Pain of the left side (Global) for 3 Month(s). Prior Study Comparison: 02/14/2016 Bilateral Diagnostic Mammogram, [facility]. 04/08/2021 Left Diagnostic Mammogram, [facility]. 04/08/2021 Left Diagnostic Ultrasound, [facility]. 04/09/2022 Left US breast limited LT, [facility]. 04/09/2022 Bilateral MG 3D diag mammo w/cad [facility], [facility]. Tissue Density: There are scattered fibroglandular densities. Findings: Analyzed By CAD. Stable flame-shaped subareolar tissue slightly more prominent on the left compared to the right consistent with gynecomastia. No new suspicious mass or calcifications within either breast. Overall Assessment: Incomplete: need additional imaging evaluation, BI-RAD 0 Management: Diagnostic Breast Ultrasound of the left breast. A clinical breast exam by your physician is recommended on an annual basis and results should be correlated with mammographic findings. This exam should not preclude additional follow-up of suspicious palpable abnormalities. Results were given to the patient verbally at the time of exam. Electronically signed and approved by: Luke Pitt D.O.
--- NOTE | 2023-06-01 15:06 | USB ---
Reason for Exam: Clinical finding. Prior Study Comparison: 02/14/2016 Bilateral Diagnostic Mammogram, [facility]. 04/08/2021 Left Diagnostic Mammogram, [facility]. 04/09/2022 Left US breast limited LT, [facility]. 04/09/2022 Bilateral MG 3D diag mammo w/cad [facility], [facility]. Findings: The whole breast of the left breast, the axilla of the left breast and the retroareolar of the left breast were scanned. Complete ultrasound of the left breast with additional evaluation of the nipple and axilla. Small retroareolar area of vague hypoechogenicity consistent with gynecomastia redemonstrated. No solid or cystic lesions identified. Overall Assessment: Benign, BI-RAD 2 Electronically signed and approved by: Luke Pitt D.O.
== END | disposition home or self-care (01) ==
LOC: RADUSWWP 14:10
PROVIDERS: ATTEND Surgery
DX: R92.323 Mammographic fibroglandular density, bilateral breasts (principal)
CPT/HCPCS: 77062; 77066

== ENCOUNTER → 2023-06-11 | Outpatient (CLI) | payer MEDICARE ==
--- NOTE | 2023-06-11 11:37 | XR ---
EXAMINATION TYPE: XR chest 2V DATE OF EXAM: 06/11/2023 COMPARISON: NONE TECHNIQUE: PA and lateral views submitted. HISTORY: Sinus difficulty congestion in lungs FINDINGS: The lungs are clear and there is no pneumothorax, pleural effusion, or focal pneumonia. Heart size normal and no overt failure. Osseous structures demonstrate hypertrophic and degenerative changes of the spine. Surgical clips right upper quadrant. Diffuse osteopenia. Atherosclerotic change aorta. Emp hysematous changes. Ectasia of the aorta. IMPRESSION: 1. No acute process. Correlate for COPD.
== END | disposition home or self-care (01) ==
LOC: RADXRMAIN 11:08
PROVIDERS: ATTEND Nurse Practitioner Family
DX: R09.81 Nasal congestion (principal); R05.9 Cough, unspecified; R09.89 Other specified symptoms and signs involving the circulatory and respiratory systems
CPT/HCPCS: 71046

== ENCOUNTER → 2023-06-25 | Outpatient (CLI) | payer MEDICARE ==
--- NOTE | 2023-06-25 10:49 | P.PN ---
Subjective Progress Note Date: 06/25/23 Benjy is an 87 year old white male seen in consultation for Dr. Rice in October 2021 regarding left breast and nipple pain. The patient had a mammogram on 04-08-21 of the left breast which showed findings consistent with gynecomastia. He also had an ultrasound done on 04-08-21 of that site which also appeared to be consistent with gynecomastia. The patient initially had tenderness at this site. He was started on a trial of tamoxifen which only lasted for several months. The pain however has stopped. He is having no symptoms related to this at the present time. He has no swelling in his right breast. The patient had a bilateral mammogram on to this was read as BIRADS 2 flame-shaped subareolar tissue with prominent on the left was redemonstrated. On the patient had a bilateral mammogram was felt to be BIRADS 0 and a repeat left breast ultrasound was performed the findings were felt to be consistent with gynecomastia and it was considered BIRADS 2. The patient has had pain across his left chest. He was seen by a chiropractor and had an adjustment and the pain is gone. He is not complaining of any changes in either breast. He has a small red lesion on his medial chest, this just occured . 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 - Constitutional Constitutional: Denies chills, Denies fever - EENT Comment: wears glasses Eyes: left pain Ears: bilateral: decreased hearing, tinnitus Ears, nose, mouth and throat: Denies headache, Denies sore throat - Breasts Breasts: bilateral: as per HPI - Cardiovascular Cardiovascular: Denies chest pain, Denies shortness of breath - Respiratory Respiratory: Reports cough - Gastrointestinal Comment: bowel blockages in the past Gastrointestinal: Denies abdominal pain, Denies diarrhea, Denies nausea, Denies vomiting - Genitourinary (Male) Comment: no testicular masses or lumps Genitourinary: Denies dysuria, Denies hematuria - Musculoskeletal Comment: left arm and shoulder pain - Integumentary Integumentary: Reports rash - Neurological Neurological: Denies numbness, Denies weakness - Psychiatric Psychiatric: Denies anxiety, Denies depression - Endocrine Endocrine: Denies fatigue, Denies weight change - Hematologic/Lymphatic Comment: aspirin baby - Allergic/Immunologic Allergic/Immunologic: Reports seasonal allergies Past Medical History Past Medical History: Asthma, Coronary Artery Disease (CAD), Chest Pain / Angina, GERD/Reflux, GI Bleed, Hearing Disorder / Deafness, Hyperlipidemia, Hypertension, Liver Disease, Osteoarthritis (OA) Additional Past Medical History / Comment(s): Recurrent SBO d/t adhesions with conservative treatment and surgical treatment, mild leaky heart valve, bleeding ulcer/lower GI bleed many years ago with exsanguination and stayed in ICU/had transfusions then another less severe lower GI bleed a few years later, upper GI bleed, duodenal ulcer, hiatal hernia, hepatitis C d/t blood transfusion-2nd treatment successful, some recent short term memory issues/tremors in hands and balance issues past few months being worked up, constipation, diverticulitis and past pre cancerous polypectomies-last colonoscopy was normal in 2018, low back pain, L shoulder pain, 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 History of Any Multi-Drug Resistant Organisms: None Reported Past Surgical History: Bowel Resection, Cholecystectomy, Heart Catheterization With Stent, Orthopedic Surgery Additional Past Surgical History / Comment(s): 06/2018 PCI with stent, 1999 PCI with 2 stents, laparotomy with lysis of adhesions, R rotator cuff repair, R knee arthroscopy, R upper chest lipoma removed, bilateral cataract removals/lens implants, EGD and colonoscopies with pre cancerous polypectomies-last colonoscopy in 2018 was normal per pt. Past Anesthesia/Blood Transfusion Reactions: Blood Transfusion Reaction Additional Past Anesthesia/Blood Transfusion Reaction / Comment(s): CONTRACTED HEP C FROM A BLOOD TRANSFUSION 35-40 YEARS AGO. Date of Last Stent Placement:: JUN 2018 Past Psychological History: No Psychological Hx Reported Smoking Status: Former smoker Past Alcohol Use History: None Reported Past Drug Use History: None Reported - Past Family History Mother Family Medical History: Cancer Additional Family Medical History / Comment(s): Other at age 80 from acute kidney injury following surgery. Patient had bladder suspension surgery and she developed to have possibly uterine cancer however she ended up with renal failure refused hemodialysis Father Family Medical History: Cancer, Deep Vein Thrombosis (DVT), Pulmonary Embolus Additional Family Medical History / Comment(s): LUNG CANCER. Father in his mid 60s due to blood clots with history of bladder cancer . The cause of pulmonary embolism. Brother(s) Family Medical History: Cancer, Coronary Artery Disease (CAD) Additional Family Medical History / Comment(s): Patient has one brother with history of non-Hodgkin's lymphoma diagnosed 15 YEARS AGO. He does not have any sisters. He has adult children with no major medical problem basically 2 sons and a daughter. Medications and Allergies Home Medications Medication Instructions Recorded Confirmed Type Simvastatin [Zocor] 20 mg PO HS 02/23/14 11/14/21 History Omeprazole 40 mg PO DAILY 02/14/19 11/14/21 History Calcium Citrate/Vitamin D3 1 tab PO DAILY 02/23/20 11/14/21 History [Citracal + D Maximum Caplet] Metoprolol Tartrate [Lopressor] 12.5 mg PO DAILY 02/23/20 11/14/21 History Vitamin B Complex 1 cap PO CLAUDIO 02/23/20 11/14/21 History Montelukast Sodium [Singulair] 10 mg PO HS 03/15/20 11/14/21 History Aspirin EC [Ecotrin Low Dose] 81 mg PO DAILY 01/28/21 11/14/21 History Docusate [Colace] 100 mg PO DAILY 01/28/21 11/14/21 History Loratadine [Claritin] 10 mg PO DAILY 03/12/21 11/14/21 History Losartan Potassium 50 mg PO DAILY 11/14/21 11/14/21 History Allergies Allergy/AdvReac Type Severity Reaction Status Date / Time atenolol Allergy Syncope Verified 11/14/21 09:59 Penicillins Allergy Rash/Hives Verified 11/14/21 09:59 prednisone Allergy Rash/Hives Verified 11/14/21 09:59 Objective - Constitutional General appearance: Present: cooperative - EENT Eyes: Present: EOMI ENT: Present: hearing grossly normal - Neck Neck: Present: normal ROM - Respiratory Respiratory: bilateral: CTA - Cardiovascular Heart sounds: normal: S1, S2 - Integumentary Integumentary: Present: normal turgor - Psychiatric Psychiatric: Present: A&O x's 3, appropriate affect, intact judgment & insight - Additional findings Additional findings: Breast Exam: insepection: no skin lesions of concern palpation: right breast: no masses or nodules of concern right axilla: No adenopathy of concern Left breast: Mild fullness under the nipple areolar complex no firm masses or nodules of concern Left axilla: No adenopathy of concern Assessment and Plan Assessment: Impression: probable left breast gynecomastia/asymptomatic skin lesion left breast/? folliculitis Plan: Patient given the option of a biopsy, and has declined repeat mammogram and ultrasound in March 2024 to be sure it is not growing follow up after radiographic studies antibiotic for folliciulitis; Bactrim CC: Dr. Rice
[2023-06-25 11:18] VITALS: BP 152/72; PULSE 60; RESP 16; TEMP 98.5
== END ==
LOC: WWCWWP 10:18
PROVIDERS: ATTEND Surgery
DX: L73.9 Follicular disorder, unspecified (principal); M19.90 Unspecified osteoarthritis, unspecified site; E78.5 Hyperlipidemia, unspecified; I10 Essential (primary) hypertension; I25.10 Atherosclerotic heart disease of native coronary artery without angina pectoris; J45.909 Unspecified asthma, uncomplicated; K21.9 Gastro-esophageal reflux disease without esophagitis; Z86.19 Personal history of other infectious and parasitic diseases; Z87.891 Personal history of nicotine dependence; Z90.49 Acquired absence of other specified parts of digestive tract; Z88.0 Allergy status to penicillin; Z95.5 Presence of coronary angioplasty implant and graft; Z88.1 Allergy status to other antibiotic agents; Z88.8 Allergy status to other drugs, medicaments and biological substances; Z79.899 Other long term (current) drug therapy

== ENCOUNTER → 2023-07-01 | Outpatient (CLI) | payer MEDICARE ==
--- NOTE | 2023-07-01 15:44 | P.PN ---
Subjective Progress Note Date: 07/01/23 Benjy is an 87 year old white male seen in consultation for Dr. Rice in October 2021 regarding left breast and nipple pain. The patient had a mammogram on 04-08-21 of the left breast which showed findings consistent with gynecomastia. He also had an ultrasound done on 04-08-21 of that site which also appeared to be consistent with gynecomastia. The patient initially had tenderness at this site. He was started on a trial of tamoxifen which only lasted for several months. The pain however has stopped. He is having no symptoms related to this at the present time. He has no swelling in his right breast. The patient had a bilateral mammogram on to this was read as BIRADS 2 flame-shaped subareolar tissue with prominent on the left was redemonstrated. On the patient had a bilateral mammogram was felt to be BIRADS 0 and a repeat left breast ultrasound was performed the findings were felt to be consistent with gynecomastia and it was considered BIRADS 2. The patient has had pain across his left chest. He was seen by a chiropractor and had an adjustment and the pain is gone. He is not complaining of any changes in either breast. He has a small red lesion on his medial chest, this just occured . 07-01-23 skin lesion medial chest, given a prescription for Bactrim last week the area has improved. States it is less red and is not as firm and swollen. 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 - Constitutional Constitutional: Denies chills, Denies fever - EENT Comment: wears glasses Eyes: left pain Ears: bilateral: decreased hearing, tinnitus Ears, nose, mouth and throat: Denies headache, Denies sore throat - Breasts Breasts: bilateral: as per HPI - Cardiovascular Cardiovascular: Denies chest pain, Denies shortness of breath - Respiratory Respiratory: Reports cough - Gastrointestinal Comment: bowel blockages in the past Gastrointestinal: Denies abdominal pain, Denies diarrhea, Denies nausea, Denies vomiting - Genitourinary (Male) Comment: no testicular masses or lumps Genitourinary: Denies dysuria, Denies hematuria - Musculoskeletal Comment: left arm and shoulder pain - Integumentary Integumentary: Reports rash - Neurological Neurological: Denies numbness, Denies weakness - Psychiatric Psychiatric: Denies anxiety, Denies depression - Endocrine Endocrine: Denies fatigue, Denies weight change - Hematologic/Lymphatic Comment: aspirin baby - Allergic/Immunologic Allergic/Immunologic: Reports seasonal allergies Past Medical History Past Medical History: Asthma, Coronary Artery Disease (CAD), Chest Pain / Angina, GERD/Reflux, GI Bleed, Hearing Disorder / Deafness, Hyperlipidemia, Hypertension, Liver Disease, Osteoarthritis (OA) Additional Past Medical History / Comment(s): Recurrent SBO d/t adhesions with conservative treatment and surgical treatment, mild leaky heart valve, bleeding ulcer/lower GI bleed many years ago with exsanguination and stayed in ICU/had transfusions then another less severe lower GI bleed a few years later, upper GI bleed, duodenal ulcer, hiatal hernia, hepatitis C d/t blood transfusion-2nd treatment successful, some recent short term memory issues/tremors in hands and balance issues past few months being worked up, constipation, diverticulitis and past pre cancerous polypectomies-last colonoscopy was normal in 2018, low back pain, L shoulder pain, 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 History of Any Multi-Drug Resistant Organisms: None Reported Past Surgical History: Bowel Resection, Cholecystectomy, Heart Catheterization With Stent, Orthopedic Surgery Additional Past Surgical History / Comment(s): 06/2018 PCI with stent, 1999 PCI with 2 stents, laparotomy with lysis of adhesions, R rotator cuff repair, R knee arthroscopy, R upper chest lipoma removed, bilateral cataract removals/lens implants, EGD and colonoscopies with pre cancerous polypectomies-last colonoscopy in 2018 was normal per pt. Past Anesthesia/Blood Transfusion Reactions: Blood Transfusion Reaction Additional Past Anesthesia/Blood Transfusion Reaction / Comment(s): CONTRACTED HEP C FROM A BLOOD TRANSFUSION 35-40 YEARS AGO. Date of Last Stent Placement:: JUN 2018 Past Psychological History: No Psychological Hx Reported Smoking Status: Former smoker Past Alcohol Use History: None Reported Past Drug Use History: None Reported - Past Family History Mother Family Medical History: Cancer Additional Family Medical History / Comment(s): Other at age 80 from acute kidney injury following surgery. Patient had bladder suspension surgery and she developed to have possibly uterine cancer however she ended up with renal failure refused hemodialysis Father Family Medical History: Cancer, Deep Vein Thrombosis (DVT), Pulmonary Embolus Additional Family Medical History / Comment(s): LUNG CANCER. Father in his mid 60s due to blood clots with history of bladder cancer . The cause of pulmonary embolism. Brother(s) Family Medical History: Cancer, Coronary Artery Disease (CAD) Additional Family Medical History / Comment(s): Patient has one brother with history of non-Hodgkin's lymphoma diagnosed 15 YEARS AGO. He does not have any sisters. He has adult children with no major medical problem basically 2 sons a nd a daughter. Medications and Allergies Home Medications Medication Instructions Recorded Confirmed Type Simvastatin [Zocor] 20 mg PO HS 02/23/14 11/14/21 History Omeprazole 40 mg PO DAILY 02/14/19 11/14/21 History Calcium Citrate/Vitamin D3 1 tab PO DAILY 02/23/20 11/14/21 History [Citracal + D Maximum Caplet] Metoprolol Tartrate [Lopressor] 12.5 mg PO DAILY 02/23/20 11/14/21 History Vitamin B Complex 1 cap PO CLAUDIO 02/23/20 11/14/21 History Montelukast Sodium [Singulair] 10 mg PO HS 03/15/20 11/14/21 History Aspirin EC [Ecotrin Low Dose] 81 mg PO DAILY 01/28/21 11/14/21 History Docusate [Colace] 100 mg PO DAILY 01/28/21 11/14/21 History Loratadine [Claritin] 10 mg PO DAILY 03/12/21 11/14/21 History Losartan Potassium 50 mg PO DAILY 11/14/21 11/14/21 History Allergies Allergy/AdvReac Type Severity Reaction Status Date / Time atenolol Allergy Syncope Verified 11/14/21 09:59 Penicillins Allergy Rash/Hives Verified 11/14/21 09:59 prednisone Allergy Rash/Hives Verified 11/14/21 09:59 Objective - Integumentary Integumentary Comment(s): Examination is limited to the area of the folliculitis on the left breast/chest wall area. The area has less erythematous less firm and appears to be improving Assessment and Plan Assessment: Impression: Resolving folliculitis Plan: 1 more week of oral antibiotics with Bactrim Patient to follow up after treatment if there is any question or concern he will follow up sooner Consideration to dermatology consult; have discussed this with the patient and he is going to set this up CC: Dr. Rice
[2023-07-01 16:13] VITALS: BP 130/63; PULSE 56; RESP 18; TEMP 98.1
== END ==
LOC: WWCWWP 15:22
PROVIDERS: ATTEND Surgery
DX: L73.9 Follicular disorder, unspecified (principal); M19.90 Unspecified osteoarthritis, unspecified site; E78.5 Hyperlipidemia, unspecified; I10 Essential (primary) hypertension; I25.10 Atherosclerotic heart disease of native coronary artery without angina pectoris; J45.909 Unspecified asthma, uncomplicated; K92.2 Gastrointestinal hemorrhage, unspecified; K76.89 Other specified diseases of liver; K21.9 Gastro-esophageal reflux disease without esophagitis; Z86.19 Personal history of other infectious and parasitic diseases; Z87.891 Personal history of nicotine dependence; Z88.0 Allergy status to penicillin; Z90.49 Acquired absence of other specified parts of digestive tract; Z95.5 Presence of coronary angioplasty implant and graft; Z88.1 Allergy status to other antibiotic agents; Z88.8 Allergy status to other drugs, medicaments and biological substances

== ENCOUNTER 2023-10-30 20:08 | Inpatient (IN) | payer MEDICARE ==
--- NOTE | 2023-10-30 20:22 | ED ---
Abdominal Pain HPI - General Chief Complaint: Nausea/Vomiting/Diarrhea Stated Complaint: Bowel blockage Time Seen by Provider: 10/30/23 20:21 Source: patient, RN notes reviewed, old records reviewed Mode of arrival: ambulatory Limitations: no limitations - History of Present Illness Initial Comments: This is a 88-year-old male to ER for evaluation of severe nausea vomiting and abdominal pain patient's pain is persistent and significant here in the juju rgency department with history of bowel obstruction concern for possible obstruction, patient did have a bowel movement yesterday. MD Complaint: abdominal pain -: hour(s) Location: diffuse, epigastric, suprapubic Radiation: epigastric, suprapubic, bilateral flank Migration to: epigastric, suprapubic Severity: severe Quality: stabbing, aching Consistency: constant Improves With: nothing Worsens With: nothing - Related Data Home Medications Medication Instructions Recorded Confirmed Omeprazole 40 mg PO DAILY 02/14/19 10/31/23 Calcium Citrate/Vitamin D3 1 tab PO DAILY 02/23/20 10/31/23 [Citracal + D Maximum Caplet] Metoprolol Tartrate [Lopressor] 12.5 mg PO BID 02/23/20 10/31/23 Vitamin B Complex 1 cap PO CLAUDIO 02/23/20 10/31/23 Montelukast Sodium [Singulair] 10 mg PO HS 03/15/20 10/31/23 Cyanocobalamin (Vitamin B-12) 1,000 mcg PO MOTUWETHFRSA 02/01/22 10/31/23 [Vitamin B-12] Famotidine 20 mg PO BID PRN 02/01/22 10/31/23 Tamsulosin [Flomax] 0.4 mg PO HS 02/01/22 10/31/23 amLODIPine [Norvasc] 5 mg PO DAILY 02/01/22 10/31/23 Fluoride (Sodium) [Sodium Fluoride 1 applic DENTAL DAILY 10/31/23 10/31/23 5000 Plus] Previous Rx's Medication Instructions Recorded Atorvastatin [Lipitor] 40 mg PO HS #30 tablet 02/04/22 Allergies Allergy/AdvReac Type Severity Reaction Status Date / Time atenolol Allergy Syncope Verified 10/31/23 09:57 Penicillins Allergy Rash/Hives Verified 10/31/23 09:57 prednisone Allergy Rash/Hives Verified 10/31/23 09:57 Mushroom AdvReac Nausea & Verified 10/31/23 09:57 Vomiting Review of Systems ROS Statement: Those systems with pertinent positive or pertinent negative responses have been documented in the HPI. ROS Other: All systems not noted in ROS Statement are negative. Past Medical History Past Medical History: Asthma, Coronary Artery Disease (CAD), Chest Pain / Angina, GERD/Reflux, GI Bleed, Hearing Disorder / Deafness, Hyperlipidemia, Hypertension, Liver Disease, Osteoarthritis (OA) Additional Past Medical History / Comment(s): Recurrent SBO d/t adhesions with conservative treatment and surgical treatment, mild leaky heart valve, bleeding ulcer/lower GI bleed many years ago with exsanguination and stayed in ICU/had transfusions then another less severe lower GI bleed a few years later, upper GI bleed, duodenal ulcer, hiatal hernia, hepatitis C d/t blood transfusion-2nd treatment successful, some recent short term memory issues/tremors in hands and balance issues past few months being worked up, constipation, diverticulitis and past pre cancerous polypectomies-last colonoscopy was normal in 2018, low back pain, L shoulder pain, 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 History of Any Multi-Drug Resistant Organisms: None Reported Past Surgical History: Bowel Resection, Cholecystectomy, Heart Catheterization With Stent, Orthopedic Surgery Additional Past Surgical History / Comment(s): 06/2018 PCI with stent, 1999 PCI with 2 stents, laparotomy with lysis of adhesions, R rotator cuff repair, R knee arthroscopy, R upper chest lipoma removed, bilateral cataract removals/lens implants, EGD and colonoscopies with pre cancerous polypectomies-last colonoscopy in 2018 was normal per pt. Past Anesthesia/Blood Transfusion Reactions: Blood Transfusion Reaction Additional Past Anesthesia/Blood Transfusion Reaction / Comment(s): CONTRACTED HEP C FROM A BLOOD TRANSFUSION 35-40 YEARS AGO. Date of Last Stent Placement:: JUN 2018 Past Psychological History: No Psychological Hx Reported Smoking Status: Former smoker Past Alcohol Use History: None Reported Past Drug Use History: None Reported - Past Family History Mother Family Medical History: Cancer Additional Family Medical History / Comment(s): Other at age 80 from acute kidney injury following surgery. Patient had bladder suspension surgery and she developed to have possibly uterine cancer however she ended up with renal failure refused hemodialysis Father Family Medical History: Cancer, Deep Vein Thrombosis (DVT), Pulmonary Embolus Additional Family Medical History / Comment(s): LUNG CANCER. Father in his mid 60s due to blood clots with history of bladder cancer . The cause of pulmonary embolism. Brother(s) Family Medical History: Cancer, Coronary Artery Disease (CAD) Additional Family Medical History / Comment(s): Patient has one brother with history of non-Hodgkin's lymphoma diagnosed 15 YEARS AGO. He does not have any sisters. He has adult children with no major medical problem basically 2 sons and a daughter. General Exam Limitations: no limitations General appearance: alert, in no apparent distress Head exam: Present: atraumatic, normocephalic, normal inspection Eye exam: Present: normal appearance, PERRL, EOMI. Absent: scleral icterus, conjunctival injection, periorbital swelling ENT exam: Present: normal exam, mucous membranes moist Neck exam: Present: normal inspection. Absent: tenderness, meningismus, lymphadenopathy Respiratory exam: Present: normal lung sounds bilaterally. Absent: respiratory distress, wheezes, rales, rhonchi, stridor Cardiovascular Exam: Present: regular rate, normal rhythm, normal heart sounds. Absent: systolic murmur, diastolic murmur, rubs, gallop, clicks GI/Abdominal exam: Present: soft, normal bowel sounds. Absent: distended, tenderness, guarding, rebound, rigid Extremities exam: Present: normal inspection, full ROM, normal capillary refill. Absent: tenderness, pedal edema, joint swelling, calf tenderness Back exam: Present: normal inspection Neurological exam: Present: alert, oriented X3, CN II-XII intact Psychiatric exam: Present: normal affect, normal mood Skin exam: Present: warm, dry, intact, normal color. Absent: rash Course Vital Signs 10/30/23 10/30/23 10/31/23 20:11 21:54 00:36 Temperature 98.4 F 97.8 F Pulse Rate 62 63 59 L Respiratory 18 16 16 Rate Blood Pressure 124/73 128/71 136/69 O2 Sat by Pulse 96 96 95 Oximetry - Reevaluation(s) Reevaluation #1: 10/30/23 20:22 Medical record is reviewed Reevaluation #2: 10/30/23 22:54 Patient symptoms are improved here in the ER Reevaluation #3: 10/30/23 22:54 Patient informed of results and questions answered Reevaluation #4: Was pt. sent in by a medical professional or institution ([facility], [employer], urgent care, hospital, or [facility]...) When possible be specific @ -no Did you speak to anyone other than the patient for history (EMS, parent, family, police, friend...)? What history was obtained from this source @ -no Did you review nursing and triage notes (agree or disagree)? Why? @ -agree Are old charts reviewed (outside hosp., previous admission, EMS record, old EKG, old radiological studies, urgent care reports/EKG's, [facility] records)? Report findings @ -yes Differential Diagnosis (chest pain, altered mental status, abdominal pain women, abdominal pain men, vaginal bleeding, weakness, fever, dyspnea, syncope, headache, dizziness, GI bleed, back pain, seizure, CVA, palpatations, mental health, musculoskeletal)? @ -prior EKG interpreted by me (3pts min.). @ -no X-rays interpreted by me (1pt min.). @ -no CT interpreted by me (1pt min.). @ -yes negative for acute disease U/S interpreted by me (1pt. min.). @ -no What testing was considered but not performed or refused? (CT, X-rays, U/S, labs)? Why? @ -none What meds were considered but not given or refused? Why? @ -none Did you discuss the management of the patient with other professionals (professionals i.e. [facility], [employer], lab, RT, psych nurse, licensed social worker, director clinical research, teacher, national insurance officer, lining caser)? Give summary @ -no Was smoking cessation discussed for >3mins.? @ -no Was critical care preformed (if so, how long)? @ -no Were there social determinants of health that impacted care today? How? (Homelessness, low income, unemployed, alcoholism, drug addiction, transportation, low edu. Level, literacy, decrease access to med. care, nursing home, rehab)? @ -none Was there de-escalation of care discussed even if they declined (Discuss DNR or withdrawal of care, Hospice)? DNR status @ -no What co-morbidities impacted this encounter? (DM, HTN, Smoking, COPD, CAD, Cancer, CVA, ARF, Chemo, Hep., AIDS, mental health diagnosis, sleep apnea, morbid obesity)? @ -none Was patient admitted / discharged? Hospital course, mention meds given and route, prescriptions, significant lab abnormalities, going to OR and other pertinent info. @ - 88 male to be admitted for recurrent small bowel obstruction with severe abdominal pain and nausea. Patient was admitted for surgical evaluation n.p.o. status and symptom control Admitted Undiagnosed new problem with uncertain prognosis? @ -no Drug Therapy requiring intensive monitoring for toxicity (Heparin, Nitro, Insulin, Cardizem)? @ -no Were any procedures done? @ -no Diagnosis/symptom? @ -Small bowel obstruction Acute, or Chronic, or Acute on Chronic? @ -Acute Uncomplicated (without systemic symptoms) or Complicated (systemic symptoms)? @ -Complicated Side effects of treatment? @ -no Exacerbation, Progression, or Severe Exacerbation? @ -exacerbation Poses a threat to life or bodily function? How? (Chest pain, [place], [place], pneumonia, PE, COPD, DKA, ARF, appy, cholecystitis, CVA, Diverticulitis, Homicidal, Suicidal, threat to staff... and all critical care pts) @ -yes yes with significant SBR Reevaluation #5: Differential Abdominal Pain Men: Appendicitis, cholecystitis, diverticulosis, ischemic bowel, pancreatitis, hepatitis, UTI, gastroenteritis, AAA, incarcerated hernia, bowel obstruction, constipation, inflammatory bowel, hepatitis, peptic ulcer disease, splenic infarction, perforated viscus, testicular torsion, this is not meant to be an all-inclusive list - Consultations Consultation #1: Poke with [facility] who agrees to admit this patient Medical Decision Making - Medical Decision Making 88 male to be admitted for recurrent small bowel obstruction with severe abdominal pain and nausea. Patient was admitted for surgical evaluation n.p.o. status and symptom control - Lab Data Result diagrams: 11/02/23 06:59 11/04/23 07:29 Lab Results 10/30/23 10/30/23 10/30/23 Range/Units 20:45 20:45 20:45 WBC 19.2 H (3.8-10.6) k/uL RBC 5.06 (4.30-5.90) m/uL Hgb 15.8 (13.0-17.5) gm/dL Hct 48.3 (39.0-53.0) % MCV 95.4 (80.0-100.0) fL MCH 31.3 (25.0-35.0) pg MCHC 32.8 (31.0-37.0) g/dL RDW 12.9 (11.5-15.5) % Plt Count 234 (150-450) k/uL MPV 8.2 Neutrophils % 84 % Lymphocytes % 7 % Monocytes % 7 % Eosinophils % 0 % Basophils % 0 % Neutrophils # 16.1 H (1.3-7.7) k/uL Lymphocytes # 1.4 (1.0-4.8) k/uL Monocytes # 1.3 H (0-1.0) k/uL Eosinophils # 0.1 (0-0.7) k/uL Basophils # 0.1 (0-0.2) k/uL PT (10.0-12.5) sec INR (<1.2) APTT (22.0-30.0) sec Sodium 138 (137-145) mmol/L Potassium 4.1 (3.5-5.1) mmol/L Chloride 107 (98-107) mmol/L Carbon Dioxide 16 L (22-30) mmol/L Anion Gap 15 mmol/L BUN 29 H (9-20) mg/dL Creatinine 1.18 (0.66-1.25) mg/dL Est GFR (CKD-EPI)AfAm 64 (>60 ml/min/1.73 sqM) Est GFR (CKD-EPI)NonAf 56 (>60 ml/min/1.73 sqM) Glucose 137 H (74-99) mg/dL Lactic Ac Sepsis Rflx Plasma Lactic Acid Luiz 2.6 H* (0.7-2.0) mmol/L Calcium 9.6 (8.4-10.2) mg/dL Total Bilirubin 0.9 (0.2-1.3) mg/dL AST 29 (17-59) U/L ALT 28 (4-49) U/L Alkaline Phosphatase 89 (38-126) U/L Total Protein 7.0 (6.3-8.2) g/dL Albumin 4.3 (3.5-5.0) g/dL Amylase 50 (30-110) U/L Lipase 21 L (23-300) U/L 10/30/23 10/30/23 Range/Units 21:23 22:01 WBC (3.8-10.6) k/uL RBC (4.30-5.90) m/uL Hgb (13.0-17.5) gm/dL Hct (39.0-53.0) % MCV (80.0-100.0) fL MCH (25.0-35.0) pg MCHC (31.0-37.0) g/dL RDW (11.5-15.5) % Plt Count (150-450) k/uL MPV Neutrophils % % Lymphocytes % % Monocytes % % Eosinophils % % Basophils % % Neutrophils # (1.3-7.7) k/uL Lymphocytes # (1.0-4.8) k/uL Monocytes # (0-1.0) k/uL Eosinophils # (0-0.7) k/uL Basophils # (0-0.2) k/uL PT 11.1 (10.0-12.5) sec INR 1.0 (<1.2) APTT 21.3 L (22.0-30.0) sec Sodium (137-145) mmol/L Potassium (3.5-5.1) mmol/L Chloride (98-107) mmol/L Carbon Dioxide (22-30) mmol/L Anion Gap mmol/L BUN (9-20) mg/dL Creatinine (0.66-1.25) mg/dL Est GFR (CKD-EPI)AfAm (>60 ml/min/1.73 sqM) Est GFR (CKD-EPI)NonAf (>60 ml/min/1.73 sqM) Glucose (74-99) mg/dL Lactic Ac Sepsis Rflx Y Plasma Lactic Acid Luiz (0.7-2.0) mmol/L Calcium (8.4-10.2) mg/dL Total Bilirubin (0.2-1.3) mg/dL AST (17-59) U/L ALT (4-49) U/L Alkaline Phosphatase (38-126) U/L Total Protein (6.3-8.2) g/dL Albumin (3.5-5.0) g/dL Amylase (30-110) U/L Lipase (23-300) U/L - Radiology Data Radiology results: report reviewed (CT abd pelvis for SBO), image reviewed Disposition Clinical Impression: Partial small bowel obstruction, Ileus, Abdominal pain, Partial small bowel obstruction Disposition: ADMITTED IP TO THIS HOSP Condition: Fair Is patient prescribed a controlled substance at d/c from ED?: No
[2023-10-30 21:07] LABS: Basophils # (A) 0.1 k/uL (0-0.2); Basophils % (A) 0 %; Eosinophils # (A) 0.1 k/uL (0-0.7); Eosinophils % (A) 0 %; HCT 48.3 % (39.0-53.0); HGB 15.8 gm/dL (13.0-17.5); Lymphocytes # (A) 1.4 k/uL (1.0-4.8); Lymphocytes % (A) 7 %; MCH 31.3 pg (25.0-35.0); MCHC 32.8 g/dL (31.0-37.0); MCV 95.4 fL (80.0-100.0); Mean Platelet Volume 8.2; Monocytes # (A) 1.3 k/uL (0-1.0); Monocytes % (A) 7 %; Neutrophils # (A) 16.1 k/uL (1.3-7.7); Neutrophils % (A) 84 %; Platelet Count 234 k/uL (150-450); RBC 5.06 m/uL (4.30-5.90); RDW 12.9 % (11.5-15.5); WBC 19.2 k/uL (3.8-10.6)
[2023-10-30 21:17] LABS: ALT 28 U/L (4-49); AST 29 U/L (17-59); African American GFR (CKD) 64 (>60 ml/min/1.73 sqM); Albumin 4.3 g/dL (3.5-5.0); Alkaline Phosphatase 89 U/L (38-126); Amylase 50 U/L (30-110); Anion Gap 15 mmol/L; Blood Urea Nitrogen 29 mg/dL (9-20); Calcium 9.6 mg/dL (8.4-10.2); Carbon Dioxide 16 mmol/L (22-30); Chloride 107 mmol/L (98-107); Glucose 137 mg/dL (74-99); Lipase 21 U/L (23-300); Non-African American GFR(CKD) 56 (>60 ml/min/1.73 sqM); Potassium 4.1 mmol/L (3.5-5.1); Sodium 138 mmol/L (137-145); Total Bilirubin 0.9 mg/dL (0.2-1.3)
[2023-10-30] MEDS: ONDANSETRON 4 MG/2 ML VIAL IVP STA (21:48)
[2023-10-30] MEDS: SODIUM CHLORIDE 0.9% 1,000 ML IV STA ×2 (21:48→22:58)
[2023-10-30] MEDS: MORPHINE SULFATE 4 MG/ML SYRINGE IVP STA (21:49)
--- NOTE | 2023-10-30 22:30 | CT ---
EXAMINATION TYPE: CT abdomen pelvis wo con CT DLP: 549.3 mGycm, Automated exposure control for dose reduction was used. DATE OF EXAM: 10/30/2023 9:16 PM COMPARISON: None. CLINICAL INDICATION:Male, 88 years old with history of abdominal pain; Nausea, vomiting Constipation. Hx of bowel obstruction. TECHNIQUE: Axial CT of the abdomen and pelvis without contrast. Sagittal and coronal reformats were created on a separate workstation. Contrast used: mL of , (none if empty) Oral contrast used: without Oral Contrast (none if empty) FINDINGS: LOWER CHEST: Mild bibasilar scarring and/or subsegmental atelectasis. Heart size is upper normal. Moderate to heavy coronary arterial calcifications bilaterally. ABDOMEN LIVER: Unremarkable GALLBLADDER AND BILE DUCTS: The gallbladder is surgically absent. Biliary tree does not appear pathol ogically dilated. PANCREAS: Fatty infiltrated without acute finding. SPLEEN: Unremarkable. ADRENAL GLANDS: Thickened and small nodular appearance of the adrenals, could be due to hyperplasia a nd/or adenomatoid changes.. KIDNEYS AND URETERS: Low-attenuation 2.6 cm nodule of the mid left kidney, with the appearance of a c yst. No renal/ureteral calculi bilaterally or hydroureteronephrosis. Mild bilateral perinephric stran ding. PELVIS BLADDER: Moderately distended. REPRODUCTIVE: Mildly prominent prostate measures up to 4.4 cm transverse. ABDOMEN & PELVIS STOMACH AND BOWEL: Small sliding hiatal hernia. The stomach contains heterogeneous particulate matter , fluid, and gas without significant distention. Gastric outlet and proximal duodenum appear somewhat patulous, thereafter duodenum appears nondilated. There is a 2.2 cm duodenal diverticulum. Continuin g distally there is progressive dilatation of multiple small bowel loops up to about 3.3 cm diameter, the small bowel loops are tortuous and challenging to follow but do eventually extend into an anteri or abdominal wall immediately supraumbilical hernia which has a neck 7.1 cm transverse and extends 4. 2 cm craniocaudal. This contains fat and protruding loop of dilated small bowel containing fluid and gas, which also continues to involve small bowel exiting the the hernia. Small bowel eventually reduc es in size with decompressed appearing small bowel loops distally. An exact transition point is diffi cult to identify but is thought to the somewhere in the left mid upper abdomen. A couple centimeters superior to this hernia, there is a tiny relatively broad-based abdominal wall d efect with partial protrusion of the anterior wall of a small bowel loop into it, image 74, without e vidence of kamlesh hernia formation at this time. Also inferior to the largest hernia, there is additional broad-based dehiscence between the abdominal rectus muscles at the level of the upper pelvis which contains partial protrusion of fat and small b owel loops without evidence of obstructive change. Nondistended terminal ileum is seen joining the colon at the fatty infiltrated ileocecal valve. There seem to be predominately fluid contents in the right colon, with some more formed stool farther dist ally in the colon. There are multiple colonic diverticula, with numerous concentrated in the sigmoid region of various sizes, without clear evidence of diverticulitis. Appendix is not identified with certainty, however there is no inflammatory process seen in the RLQ. PERITONEUM/RETROPERITONEUM: No evidence of pneumoperitoneum or free fluid. VASCULATURE: Moderate atherosclerotic calcifications are present throughout the abdominal aorta and i ts branches. No evidence of aortic aneurysm. LYMPH NODES: No enlarged lymph nodes by CT criteria. SOFT TISSUE/ABDOMINAL WALL: Small to moderate and small left fat-containing inguinal hernias. MUSCULOSKELETAL: No acute osseous abnormalities. Moderate disc degeneration changes are present throu ghout the thoracolumbar spine.. IMPRESSION: * Multiple fluid-filled, distended mid to distal small bowel loops concerning for high-grade partial or early complete obstruction. * A fat and bowel-containing ventral hernia at the midline immediately supraumbilical may be at leas t contributory, but does not seem to be the sole point of obstruction. * Dilated small bowel eventually reduces in size, with decompressed appearing small bowel loops seen distally. An exact transition point is difficult to identify but is thought to the somewhere in the left mid upper abdomen.
[2023-10-30 22:32] LABS: Partial Thromboplastin Time 21.3 sec (22.0-30.0); Prothrombin Time 11.1 sec (10.0-12.5)
[2023-10-30] MEDS ORDERED: NALOXONE 0.4 MG/ML 1 ML VIAL IV PRN (22:52)
[2023-10-30] MEDS ORDERED: HYDROmorphone 1 MG/ML 1 ML SYRINGE IVP PRN (22:52)
[2023-10-30] MEDS: SODIUM CHLORIDE 0.9% 1,000 ML IV SCH (22:58)
[2023-10-30] MEDS: SODIUM CHLORIDE 0.9% 500 ML 500 ML IV STA (22:58)
[2023-10-31 05:31] LABS: Basophils % (A) 0 %; Eosinophils % (A) 0 %; HCT 42.1 % (39.0-53.0); HGB 13.3 gm/dL (13.0-17.5); Lymphocytes # (A) 1.8 k/uL (1.0-4.8); Lymphocytes % (A) 13 %; MCH 30.7 pg (25.0-35.0); MCHC 31.6 g/dL (31.0-37.0); MCV 97.3 fL (80.0-100.0); Mean Platelet Volume 7.5; Monocytes % (A) 7 %; Neutrophils # (A) 10.1 k/uL (1.3-7.7); Neutrophils % (A) 76 %; Platelet Count 205 k/uL (150-450); RBC 4.32 m/uL (4.30-5.90); WBC 13.3 k/uL (3.8-10.6)
[2023-10-31 05:50] LABS: ALT 25 U/L (4-49); AST 24 U/L (17-59); African American GFR (CKD) 69 (>60 ml/min/1.73 sqM); Albumin 3.1 g/dL (3.5-5.0); Alkaline Phosphatase 74 U/L (38-126); Anion Gap 5 mmol/L; Blood Urea Nitrogen 30 mg/dL (9-20); Calcium 8.2 mg/dL (8.4-10.2); Carbon Dioxide 23 mmol/L (22-30); Chloride 112 mmol/L (98-107); Glucose 99 mg/dL (74-99); Non-African American GFR(CKD) 60 (>60 ml/min/1.73 sqM); Potassium 4.1 mmol/L (3.5-5.1); Sodium 140 mmol/L (137-145); Total Bilirubin 0.8 mg/dL (0.2-1.3); Total Protein 5.5 g/dL (6.3-8.2)
[2023-10-31] MEDS: PANTOPRAZOLE 40 MG/10 ML VIAL IV SCH (07:36)
[2023-10-31] MEDS: ONDANSETRON 4 MG/2 ML VIAL IVP PRN (07:39)
--- NOTE | 2023-10-31 11:38 | P.HPIM ---
History of Present Illness Patient is a pleasant 88-year-old male came in with nausea vomiting diffuse abdominal discomfort which improved at this time. Patient had a CT of the abdomen which showed partial small bowel obstruction without any transition point. Patient is passing small amount of gas but his bowel sounds are still sluggish does not have any significant abdominal pain but nauseous. Patient is walking in the hallways. Patient had partial small bowel bowel obstructions in the past REVIEW OF SYSTEMS: CONSTITUTIONAL: No fever, no malaise, no fatigue. HEENT: No recent visual problems or hearing problems. Denied any sore throat. CARDIOVASCULAR: No chest pain, orthopnea, PND, no palpitations, no syncope. PULMONARY: No shortness of breath, no cough, no hemoptysis. GASTROINTESTINAL: As mentioned in HPI NEUROLOGICAL: No headaches, no weakness, no numbness. HEMATOLOGICAL: Denies any bleeding or petechiae. GENITOURINARY: Denies any burning micturition, frequency, or urgency. MUSCULOSKELETAL/RHEUMATOLOGICAL: Denies any joint pain, swelling, or any muscle pain. ENDOCRINE: Denies any polyuria or polydipsia. The rest of the 14-point review of systems is negative. PHYSICAL EXAMINATION: GENERAL: The patient is alert and oriented x3, not in any acute distress. Well developed, well nourished. HEENT: Pupils are round and equally reacting to light. EOMI. No scleral icterus. No conjunctival pallor. Normocephalic, atraumatic. No pharyngeal erythema. No thyromegaly. CARDIOVASCULAR: S1 and S2 present. No murmurs, rubs, or gallops. PULMONARY: Chest is clear to auscultation, no wheezing or crackles. ABDOMEN: Soft, nontender mildly distended and absent bowel sounds. No palpable organomegaly. MUSCULOSKELETAL: No joint swelling or deformity. EXTREMITIES: No cyanosis, clubbing, or pedal edema. NEUROLOGICAL: Gross neurological examination did not reveal any focal deficits. SKIN: No rashes. Assessment and plan -Partial small bowel obstruction: Conservative management with IV fluids although IV fluids will be changed to half-normal saline patient had lactic acidosis on admission which resolved with IV fluids consider lactated Ringer's tomorrow if needed as his lactic acidosis improved. Will monitor kidney functio n and basic metabolic profile -Leukocytosis without any evidence of infection: Reactive repeat CBC tomorrow -Benign prostatic hypertrophy patient will be resumed on tamsulosin -Hypertension -Gastroesophageal reflux disease -Hyperlipidemia For above-mentioned chronic medical problems patient will be resumed on appropriate home medications DVT prophylaxis: Lovenox subcutaneous starting tomorrow although patient is fairly ambulatory considering his age we will go ahead start him on pharmacologic DVT prophylaxis GI prophylaxis: Pepcid Past Medical History Past Medical History: Asthma, Coronary Artery Disease (CAD), Chest Pain / Angina, GERD/Reflux, GI Bleed, Hearing Disorder / Deafness, Hyperlipidemia, Hypertension, Liver Disease, Osteoarthritis (OA) Additional Past Medical History / Comment(s): Recurrent SBO d/t adhesions with conservative treatment and surgical treatment, mild leaky heart valve, bleeding ulcer/lower GI bleed many years ago with exsanguination and stayed in ICU/had transfusions then another less severe lower GI bleed a few years later, upper GI bleed, duodenal ulcer, hiatal hernia, hepatitis C d/t blood transfusion-2nd treatment successful, some recent short term memory issues/tremors in hands and balance issues past few months being worked up, constipation, diverticulitis and past pre cancerous polypectomies-last colonoscopy was normal in 2018, low back pain, L shoulder pain, 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 History of Any Multi-Drug Resistant Organisms: None Reported Past Surgical History: Bowel Resection, Cholecystectomy, Heart Catheterization With Stent, Orthopedic Surgery Additional Past Surgical History / Comment(s): 06/2018 PCI with stent, 1999 PCI with 2 stents, laparotomy with lysis of adhesions, R rotator cuff repair, R knee arthroscopy, R upper chest lipoma removed, bilateral cataract removals/lens implants, EGD and colonoscopies with pre cancerous polypectomies-last colonoscopy in 2018 was normal per pt. Past Anesthesia/Blood Transfusion Reactions: Blood Transfusion Reaction Additional Past Anesthesia/Blood Transfusion Reaction / Comment(s): CONTRACTED HEP C FROM A BLOOD TRANSFUSION 35-40 YEARS AGO. Date of Last Stent Placement:: JUN 2018 Past Psychological History: No Psychological Hx Reported Additional Psychological History / Comment(s): Daughter moved in with pt recently. Smoking Status: Former smoker Past Alcohol Use History: None Reported Additional Past Alcohol Use History / Comment(s): Patient was a smoker from [id number]. He drinks a glass of wine on special occasions. Past Drug Use History: None Reported - Past Family History Mother Family Medical History: Cancer Additional Family Medical History / Comment(s): Other at age 80 from acute kidney injury following surgery. Patient had bladder suspension surgery and she developed to have possibly uterine cancer however she ended up with renal failure refused hemodialysis Father Family Medical History: Cancer, Deep Vein Thrombosis (DVT), Pulmonary Embolus Additional Family Medical History / Comment(s): LUNG CANCER. Father in his mid 60s due to blood clots with history of bladder cancer . The cause of pulmonary embolism. Brother(s) Family Medical History: Cancer, Coronary Artery Disease (CAD) Additional Family Medical History / Comment(s): Patient has one brother with history of non-Hodgkin's lymphoma diagnosed 15 YEARS AGO. He does not have any sisters. He has adult children with no major medical problem basically, 2 sons and a daughter. Medications and Allergies Home Medications Medication Instructions Recorded Confirmed Type Omeprazole 40 mg PO DAILY 02/14/19 10/31/23 History Calcium Citrate/Vitamin D3 1 tab PO DAILY 02/23/20 10/31/23 History [Citracal + D Maximum Caplet] Metoprolol Tartrate [Lopressor] 12.5 mg PO BID 02/23/20 10/31/23 History Vitamin B Complex 1 cap PO CLAUDIO 02/23/20 10/31/23 History Montelukast Sodium [Singulair] 10 mg PO HS 03/15/20 10/31/23 History Cyanocobalamin (Vitamin B-12) 1,000 mcg PO MOTUWETHFRSA 02/01/22 10/31/23 History [Vitamin B-12] Famotidine 20 mg PO BID PRN 02/01/22 10/31/23 History Tamsulosin [Flomax] 0.4 mg PO HS 02/01/22 10/31/23 History amLODIPine [Norvasc] 5 mg PO DAILY 02/01/22 10/31/23 History Atorvastatin [Lipitor] 40 mg PO HS #30 tablet 02/04/22 10/31/23 Rx Fluoride (Sodium) [Sodium Fluoride 1 applic DENTAL DAILY 10/31/23 10/31/23 History 5000 Plus] Allergies Allergy/AdvReac Type Severity Reaction Status Date / Time atenolol Allergy Syncope Verified 10/31/23 09:57 Penicillins Allergy Rash/Hives Verified 10/31/23 09:57 prednisone Allergy Rash/Hives Verified 10/31/23 09:57 Mushroom AdvReac Nausea & Verified 10/31/23 09:57 Vomiting Physical Exam Vitals: Vital Signs Temp Pulse Pulse Resp BP BP Pulse Ox 10/31/23 07:35 98.2 F 63 17 124/64 95 10/31/23 01:36 97.9 F 65 16 130/66 94 L 10/31/23 00:36 97.8 F 59 L 16 136/69 95 10/30/23 21:54 63 16 128/71 96 10/30/23 20:11 98.4 F 62 18 124/73 96 Intake and Output 10/30/23 10/31/23 10/31/23 22:59 06:59 14:59 Intake Total 1500 Balance 1500 Intake: Intake, IV Titration 1500 Amount Sodium Chloride 0.9% 1, 1500 000 ml @ 130 mls/hr IV . [id number] [facility] Rx#:[id number] Other: Weight 72.575 kg 72.575 kg Results CBC & Chem 7: 10/31/23 04:56 10/31/23 04:56 Labs: Abnormal Lab Results - Last 24 Hours (Table) 10/30/23 10/30/23 10/30/23 Range/Units 20:45 20:45 20:45 WBC 19.2 H (3.8-10.6) k/uL Neutrophils # 16.1 H (1.3-7.7) k/uL Monocytes # 1.3 H (0-1.0) k/uL APTT (22.0-30.0) sec Chloride (98-107) mmol/L Carbon Dioxide 16 L (22-30) mmol/L BUN 29 H (9-20) mg/dL Glucose 137 H (74-99) mg/dL Plasma Lactic Acid Luiz 2.6 H* (0.7-2.0) mmol/L Calcium (8.4-10.2) mg/dL Total Protein (6.3-8.2) g/dL Albumin (3.5-5.0) g/dL Lipase 21 L (23-300) U/L 10/30/23 10/31/23 10/31/23 Range/Units 22:01 04:56 04:56 WBC 13.3 H (3.8-10.6) k/uL Neutrophils # 10.1 H (1.3-7.7) k/uL Monocytes # (0-1.0) k/uL APTT 21.3 L (22.0-30.0) sec Chloride 112 H (98-107) mmol/L Carbon Dioxide (22-30) mmol/L BUN 30 H (9-20) mg/dL Glucose (74-99) mg/dL Plasma Lactic Acid Luiz (0.7-2.0) mmol/L Calcium 8.2 L (8.4-10.2) mg/dL Total Protein 5.5 L (6.3-8.2) g/dL Albumin 3.1 L (3.5-5.0) g/dL Lipase (23-300) U/L Thrombosis Risk Factor Assmnt - Choose All That Apply Any of the Below Risk Factors Present?: Yes Each Factor Represents 1 point: Obesity (BMI >25) Each Risk Factor Represents 3 Points: Age 75 years or older Other congenital or acquired thrombophilia - If yes, enter type in comment: No Thrombosis Risk Factor Assessment Total Risk Factor Score: 4 Thrombosis Risk Factor Assessment Level: Moderate Risk
[2023-10-31] MEDS: METOPROLOL TARTRATE 12.5 MG TAB PO SCH (12:20)
[2023-10-31] MEDS: FAMOTIDINE 20 MG/2 ML VIAL IV SCH (12:22)
[2023-10-31] MEDS: SODIUM CHLORIDE 0.45% 1,000 ML IV SCH (18:28)
[2023-10-31] MEDS: TAMSULOSIN 0.4 MG CAP.ER.24H PO SCH (19:43)
[2023-10-31] MEDS: ATORVASTATIN 40 MG TAB PO SCH (19:43)
[2023-11-01] MEDS: ACETAMINOPHEN IV (For NPO) 1,000 MG in EMPTY BAG 1 BAG IVPB PRN (05:26)
[2023-11-01] MEDS: ENOXAPARIN 40 MG/0.4 ML SYRINGE SQ SCH (07:46)
[2023-11-01] MEDS ORDERED: ACETAMINOPHEN TAB 325 MG TAB PO PRN (08:02)
[2023-11-01] MEDS: KETOROLAC 15 MG/ML 1 ML VIAL IVP PRN (08:26)
[2023-11-01] MEDS: amLODIPine 5 MG TAB PO SCH (08:26)
[2023-11-01 08:49] LABS: HCT 40.8 % (39.6-50.0); HGB 13.4 g/dL (13.0-17.0); MCHC 32.8 g/dL (32.0-37.0); MCV 94.4 FL (80.0-97.0); NRBC Per 100 WBC 0 X 10*3/uL (0.00-0.01); Platelet Count 201 X 10*3/uL (140-440); RBC 4.32 X 10*6/uL (4.40-5.60); RDW 13.1 % (11.5-14.5); WBC 9.87 X 10*3/uL (4.50-10.00)
[2023-11-01 09:02] LABS: BUN/Creat Ratio 19.18 Ratio (12.00-20.00); Blood Urea Nitrogen 21.1 mg/dL (9.0-27.0); Carbon Dioxide 21.3 mmol/L (21.6-31.8); Chloride 105 mmol/L (96-109); Glucose 73 mg/dL (70-110); Potassium 3.8 mmol/L (3.5-5.5); Sodium 136 mmol/L (135-145)
--- NOTE | 2023-11-01 10:44 | XR ---
EXAMINATION TYPE: XR abdomen 2V DATE OF EXAM: 11/01/2023 COMPARISON: 10/30/2023 HISTORY: Pain TECHNIQUE: One view abdominal series FINDINGS: The osseous structures are intact. The bowel gas pattern is nonspecific. Lung bases are clear. Air- fluid level within nondilated small bowel loops. Surgical clips right upper quadrant. Contrast within the bladder. Arthropathy of the hips. Degenerative changes of the spine. Diffuse osteopenia. IMPRESSION: 1. Persistent dilated small bowel loop with air-fluid level compatible with bowel obstruction.
[2023-11-01] MEDS: MORPHINE SULFATE 2 MG/ML SYRINGE IVP PRN (13:36)
--- NOTE | 2023-11-01 15:54 | P.GSCN ---
History of Present Illness Consult date: 11/01/23 History of present illness: CHIEF COMPLAINT: Abdominal pain with nausea and vomiting HISTORY OF PRESENT ILLNESS: This is a 88-year-old male with a known history of bowel obstructions that have been treated conservatively in the past. Patient reports that his prior bowel obstructions were due to adhesions. He was having nausea and vomiting at home. His abdominal pain started 3 days ago. Patient reports his last bowel movement was 3 days ago and he had stopped having flatus. Last night he started to have bowel movements again. He is having flatus. He has had no further vomiting. Past surgical history open cholecystectomy and exploratory laparotomy with small bowel resection. Patient had a CT scan abdomen and pelvis completed that had reported a high-grade partial small bowel obstruction or early complete bowel obstruction with a ventral hernia containing fat and bowel. Patient currently is NPO. Patient denies being on any blood thinners. Patient does report that he is feeling better since admission. PAST MEDICAL HISTORY: Asthma, Coronary Artery Disease (CAD), Chest Pain / Angina, GERD/Reflux, GI Bleed, Hearing Disorder / Deafness, Hyperlipidemia, Hypertension, Liver Disease, Osteoarthritis (OA), recurrent small bowel obstruction due to adhesions, hepatitis C, diverticulitis, coronary disease with cardiac stents PAST SURGICAL HISTORY: Bowel Resection, Cholecystectomy, Heart Catheterization With Stent, Orthopedic Surgery MEDICATIONS: See below ALLERGIES: See below SOCIAL HISTORY: No illicit drug use. REVIEW OF SYSTEMS: CONSTITUTIONAL: Denies fever or chills. HEENT: Denies blurred vision, vision changes, or eye pain. Denies hemoptysis CARDIOVASCULAR: Denies chest pain or pressure. RESPIRATORY: No shortness of breath. GASTROINTESTINAL: See HPI for pertinent findings HEMATOLOGIC: Denies bleeding disorders. GENITOURINARY: Denies any blood in urine or increased urinary frequency. SKIN: Denies pruitis. Denies rash. PHYSICAL EXAM: VITAL SIGNS: Reviewed GENERAL: Well-developed in no acute distress. HEENT: No sclera icterus. Extraocular movements grossly intact. Moist buccal mucosa. Head is atraumatic, normocephalic. No nasal drainage. ABDOMEN: Soft. Nondistended. Tenderness to palpation above the umbilicus. Ventral hernia reducible. NEUROLOGIC: Alert and oriented. Cranial nerves II through XII grossly intact. LABORATORY DATA: WBC 13.3 down to 8.7 Hgb 13.4 platelets 201 Sodium is 136 potassium 3.8 creatinine 1.1 Lactic acid 2.6 down to 1.3 IMAGING: CT scan abdomen pelvis reports multiple fluid-filled distended mid to distal small bowel loops concerning for high-grade partial or early complete obstruction. Fat and bowel containing ventral hernia at the midline immediately supraumbilical may be at least contributory but does not seem to be the sole point of obstruction. Dilated small bowel eventually reduces in size with decompressing appearing small bowel loops seen distally. Abdominal x-ray persistent dilated small bowel loops with air-fluid level compatible with bowel obstruction ASSESSMENT: 1. Partial small bowel obstruction 2. Prior history of abdominal surgeries 3. 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 Ventral hernia reducible PLAN: -Patient's pain has improved. He is now having bowel movements. Partial small bowel obstruction resolving. Start clear liquid diet and monitor Physician Insurance Marketing Specialist note has been reviewed by physician. Signing provider agrees with the documented findings, assessment, and plan of care. Past Medical History Past Medical History: Asthma, Coronary Artery Disease (CAD), Chest Pain / Angina, GERD/Reflux, GI Bleed, Hearing Disorder / Deafness, Hyperlipidemia, Hypertension, Liver Disease, Osteoarthritis (OA) Additional Past Medical History / Comment(s): Recurrent SBO d/t adhesions with conservative treatment and surgical treatment, mild leaky heart valve, bleeding ulcer/lower GI bleed many years ago with exsanguination and stayed in ICU/had transfusions then another less severe lower GI bleed a few years later, upper GI bleed, duodenal ulcer, hiatal hernia, hepatitis C d/t blood transfusion-2nd treatment successful, some recent short term memory issues/tremors in hands and balance issues past few months being worked up, constipation, diverticulitis and past pre cancerous polypectomies-last colonoscopy was normal in 2018, low back pain, L shoulder pain, 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 History of Any Multi-Drug Resistant Organisms: None Reported Past Surgical History: Bowel Resection, Cholecystectomy, Heart Catheterization With Stent, Orthopedic Surgery Additional Past Surgical History / Comment(s): 06/2018 PCI with stent, 2000 PCI with 2 stents, laparotomy with lysis of adhesions, R rotator cuff repair, R knee arthroscopy, R upper chest lipoma removed, bilateral cataract removals/lens implants, EGD and colonoscopies with pre cancerous polypectomies-last colonoscopy in 2018 was normal per pt. Past Anesthesia/Blood Transfusion Reactions: Blood Transfusion Reaction Additional Past Anesthesia/Blood Transfusion Reaction / Comm: CONTRACTED HEP C FROM A BLOOD TRANSFUSION 35-40 YEARS AGO. Date of Last Stent Placement:: JUN 2018 Past Psychological History: No Psychological Hx Reported Additional Psychological History / Comment(s): Daughter moved in with pt recently. Smoking Status: Former smoker Past Alcohol Use History: None Reported Additional Past Alcohol Use History / Comment(s): Patient was a smoker from [id number]. He drinks a glass of wine on special occasions. Past Drug Use History: None Reported - Past Family History Mother Family Medical History: Cancer Additional Family Medical History / Comment(s): Other at age 80 from acute kidney injury following surgery. Patient had bladder suspension surgery and she developed to have possibly uterine cancer however she ended up with renal failure refused hemodialysis Father Family Medical History: Cancer, Deep Vein Thrombosis (DVT), Pulmonary Embolus Additional Family Medical History / Comment(s): LUNG CANCER. Father in his mid 60s due to blood clots with history of bladder cancer . The cause of pulmonary embolism. Brother(s) Family Medical History: Cancer, Coronary Artery Disease (CAD) Additional Family Medical History / Comment(s): Patient has one brother with history of non-Hodgkin's lymphoma diagnosed 15 YEARS AGO. He does not have any sisters. He has adult children with no major medical problem basically, 2 sons and a daughter. Medications and Allergies Home Medications Medication Instructions Recorded Confirmed Type Omeprazole 40 mg PO DAILY 02/14/19 10/31/23 History Calcium Citrate/Vitamin D3 1 tab PO DAILY 02/23/20 10/31/23 History [Citracal + D Maximum Caplet] Metoprolol Tartrate [Lopressor] 12.5 mg PO BID 02/23/20 10/31/23 History Vitamin B Complex 1 cap PO CLAUDIO 02/23/20 10/31/23 History Montelukast Sodium [Singulair] 10 mg PO HS 03/15/20 10/31/23 History Cyanocobalamin (Vitamin B-12) 1,000 mcg PO MOTUWETHFRSA 02/01/22 10/31/23 History [Vitamin B-12] Famotidine 20 mg PO BID PRN 02/01/22 10/31/23 History Tamsulosin [Flomax] 0.4 mg PO HS 02/01/22 10/31/23 History amLODIPine [Norvasc] 5 mg PO DAILY 02/01/22 10/31/23 History Atorvastatin [Lipitor] 40 mg PO HS #30 tablet 02/04/22 10/31/23 Rx Fluoride (Sodium) [Sodium Fluoride 1 applic DENTAL DAILY 10/31/23 10/31/23 History 5000 Plus] Allergies Allergy/AdvReac Type Severity Reaction Status Date / Time atenolol Allergy Syncope Verified 10/31/23 09:57 Penicillins Allergy Rash/Hives Verified 10/31/23 09:57 prednisone Allergy Rash/Hives Verified 10/31/23 09:57 Mushroom AdvReac Nausea & Verified 10/31/23 09:57 Vomiting Surgical - Exam Vital Signs Temp Pulse Resp BP Pulse Ox 98.4 F 62 18 124/73 96 10/30/23 20:11 10/30/23 20:11 10/30/23 20:11 10/30/23 20:11 10/30/23 20:11 Results - Labs 11/01/23 06:15 11/01/23 06:15 Abnormal Lab Results - Last 24 Hours (Table) 11/01/23 11/01/23 Range/Units 06:15 06:15 RBC 4.32 L (4.40-5.60) X 10*6/uL Carbon Dioxide 21.3 L (21.6-31.8) mmol/L Calcium 8.0 L (8.7-10.3) mg/dL Diabetes panel 11/01/23 Range/Units 06:15 Sodium 136 (135-145) mmol/L Potassium 3.8 (3.5-5.5) mmol/L Chloride 105 (96-109) mmol/L Carbon Dioxide 21.3 L (21.6-31.8) mmol/L BUN 21.1 (9.0-27.0) mg/dL Creatinine 1.1 (0.6-1.5) mg/dL Glucose 73 (70-110) mg/dL Calcium 8.0 L (8.7-10.3) mg/dL Calcium panel 11/01/23 Range/Units 06:15 Calcium 8.0 L (8.7-10.3) mg/dL Pituitary panel 11/01/23 Range/Units 06:15 Sodium 136 (135-145) mmol/L Potassium 3.8 (3.5-5.5) mmol/L Chloride 105 (96-109) mmol/L Carbon Dioxide 21.3 L (21.6-31.8) mmol/L BUN 21.1 (9.0-27.0) mg/dL Creatinine 1.1 (0.6-1.5) mg/dL Glucose 73 (70-110) mg/dL Calcium 8.0 L (8.7-10.3) mg/dL Adrenal panel 11/01/23 Range/Units 06:15 Sodium 136 (135-145) mmol/L Potassium 3.8 (3.5-5.5) mmol/L Chloride 105 (96-109) mmol/L Carbon Dioxide 21.3 L (21.6-31.8) mmol/L BUN 21.1 (9.0-27.0) mg/dL Creatinine 1.1 (0.6-1.5) mg/dL Glucose 73 (70-110) mg/dL Calcium 8.0 L (8.7-10.3) mg/dL
--- NOTE | 2023-11-01 23:48 | P.PN ---
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 Has not been hospitalized with small bowel obstruction for over a year he apparently presented to the emergency department this time with severe abdominal pain for the last 48 hours CAT scan of the abdomen shows sign of small bowel obstruction without any transitional point patient had small amount of gas passing in his bowel still have significant sluggish abdominal discomfort if required will have an NG tube been in the meanwhile watch for any progression awaiting for surgical consultation today. 11/01/2023: Patient was admitted for small bowel obstruction with severe abdominal pain continue conservative management does not requiring NG tube at this point, x-ray to be repeated still waiting for surgical consultation which was originally placed for Dr. Maxwell was no longer come to [facility]. REVIEW OF SYSTEMS: CONSTITUTIONAL: Well-developed no acute respiratory distress. EYES: No icterus sclerae, no conjunctivitis. EARS, NOSE, MOUTH, THROAT, and FACE: No sore throat, lymphadenopathy, carotid bruits or deformity. RESPIRATORY: No SOB cough or wheezes. CARDIOVASCULAR: No CP, Palpitation, PND, Orthopnea, or angina. GASTROINTESTINAL: Positive abdominal pain with nausea and vomiting with bowel obstruction. GENITOURINARY: Mild BPH symptoms with no obstruction. INTEGUMENT/BREAST: Negative for any muscular injury with mild osteoarthritis.. HEMATOLOGIC/LYMPHATIC: Negative for bleed or purpura. MUSCULOSKELTAL: Negative for Myalgia or arthralgia. NEURLOGICAL: No LOC, Sz or syncope, blurred vision dizziness or abnormality.. BEHAVIORAL/PSYCH: Negative. ENDOCRINE: Negative. PHYSICAL EXAMINATION: General Appearance: Alert, cooperative, no distress, appears stated age. Neck HEENT: Supple, no lymphadenopathy, no thyroid enlargement, no carotid bruits. Lungs: Clear to auscultation without crackles or wheezes no rhonchi, no deformity. Chest Wall: Chest wall normal expansion with deep inspiration no tenderness and no deformity was found on exam, no costochondral pain or discomfort. Heart: Regular rate and rhythm, S1, S2 normal, no murmur, rub or gallop. Back: Symmetric, no curvature, ROM normal, no CVA tenderness. Abdomen: Distended soft with hyper bowel sound no masses no organomegaly. Extremities: Extremities normal, atraumatic, no cyanosis or edema. Pulses: 2+ and symmetric. Skin: Skin color, texture, tugor normal, no rashes or lesions. Neurologic: Alert oriented x3 cranial nerves II through XII intact, no motor deficit, no abnormal balance or gait. ASSESSMENT AND PLAN: _Severe abdominal pain: Secondary to small bowel obstruction most likely partial patient had multi bowel surgery in the past will be seen general surgeon at this point decide on what the best action plan based on progression next 24 hours. _Small bowel obstruction: Still n.p.o. at this point will consult general surgery watch for any progression or worsening symptom on x-ray and clinically. _Hypertension: Has been on amlodipine 5 mg a day and metoprolol tartrate 12.5 mg twice a day resume medication as soon patient is able to take oral meds. _Hyperlipidemia: On atorvastatin continue medication. _BPH: On Flomax has been and held for patient's stomach feels better will continue to watch for any urinary retention. _Severe GERD: Remain on omeprazole 40 mg daily will switch to IV pantoprazole. If he still cannot bePrognosis: Fair. Discussion: Long discussion with the patient, to titrate and replace his home meds with IV if he still cannot be n.p.o. at this point. Also consider IV nutrition. Blood work today with WBC 9.87 with hemoglobin 13.4, electrolytes kidney and liver were normal. Objective - Vital Signs Vital signs: Vital Signs Temp 98.8 F 11/01/23 01:01 Pulse 77 11/01/23 01:01 Resp 18 11/01/23 01:01 BP 109/55 11/01/23 01:01 Pulse Ox 93 L 11/01/23 01:01 FiO2 Intake & Output 10/31/23 10/31/23 11/01/23 06:59 18:59 06:59 Intake Total 1500 900 Output Total 400 400 Balance 1500 500 -400 Weight 72.575 kg Intake: Intake, IV Titration 1500 900 Amount Sodium Chloride 0.45% 1, 900 000 ml @ 75 mls/hr IV . [id number] [facility] Rx#:[id number] Sodium Chloride 0.9% 1, 1500 000 ml @ 75 mls/hr IV . [id number] [facility] Rx#:[id number] Output: Urine 400 400 Other: Voiding Method Toilet # Voids 1 # Bowel Movements 1 - Labs CBC & Chem 7: 11/01/23 06:15 11/01/23 06:15
[2023-11-02 10:49] LABS: HCT 39.9 % (39.6-50.0); HGB 13.4 g/dL (13.0-17.0); MCH 31.1 pg (27.0-32.0); MCHC 33.6 g/dL (32.0-37.0); MCV 92.6 FL (80.0-97.0); Mean Platelet Volume 10.1 FL (9.5-12.2); NRBC Per 100 WBC 0 X 10*3/uL (0.00-0.01); Platelet Count 201 X 10*3/uL (140-440); RBC 4.31 X 10*6/uL (4.40-5.60); RDW 12.6 % (11.5-14.5); WBC 8.92 X 10*3/uL (4.50-10.00)
[2023-11-02 11:05] LABS: ALT 23 U/L (10-49); AST 16 U/L (14-35); Albumin 3.5 g/dL (3.8-4.9); Albumin/Globulin Ratio 1.94 Ratio (1.60-3.17); Alkaline Phosphatase 78 U/L (41-126); Blood Urea Nitrogen 18.6 mg/dL (9.0-27.0); Calcium 7.9 mg/dL (8.7-10.3); Chloride 104 mmol/L (96-109); Globulin 1.8 g/dL (1.6-3.3); Glucose 81 mg/dL (70-110); Potassium 3.7 mmol/L (3.5-5.5); Sodium 135 mmol/L (135-145); Total Bilirubin 0.7 mg/dL (0.3-1.2); Total Protein 5.3 g/dL (6.2-8.2)
--- NOTE | 2023-11-02 12:43 | P.PN ---
Subjective Progress Note Date: 11/02/23 CHIEF COMPLAINT: Partial small bowel obstruction HISTORY OF PRESENT ILLNESS: Patient reports improvement in his abdominal pain. He is having multiple liquidy stools and flatus. Denies any nausea or vomiting. Tolerating the clear liquids. Patient does report feeling weak. Afebrile. WBC 9.82 Hgb 13.4 PHYSICAL EXAM: VITAL SIGNS: Reviewed. GENERAL: Well-developed in no acute distress. ABDOMEN: Soft. Nondistended. Mild tenderness above umbilicus. Umbilical hernia reducible NEUROLOGIC: Alert and oriented. Cranial nerves II through XII grossly intact. ASSESSMENT: 1. Partial small bowel obstruction 2. Prior history of abdominal surgeries 3. 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 Ventral hernia reducible PLAN: -Advance diet to full liquids -Encourage patient to increase activity level -Consult physical therapy Physician Diorama Model Maker note has been reviewed by physician. Signing provider agrees with the documented findings, assessment, and plan of care. Objective - Vital Signs Vital signs: Vital Signs Temp 98.7 F 11/02/23 07:29 Pulse 60 11/02/23 10:09 Resp 16 11/02/23 09:03 BP 127/65 11/02/23 10:09 Pulse Ox 92 L 11/02/23 10:09 FiO2 Intake & Output 11/01/23 11/02/23 11/02/23 18:59 06:59 18:59 Intake Total 900 1380 Output Total 200 150 Balance 900 1180 -150 Intake: Intake, IV Titration 900 900 Amount Sodium Chloride 0.45% 1, 900 900 000 ml @ 75 mls/hr IV . [id number] [facility] Rx#:[id number] Oral 480 Output: Urine 200 150 Other: Voiding Method Toilet Toilet # Voids 3 1 # Bowel Movements 1 2 - Labs CBC & Chem 7: 11/02/23 06:59 11/02/23 06:59 Labs: Abnormal Lab Results - Last 24 Hours (Table) 11/02/23 11/02/23 Range/Units 06:59 06:59 RBC 4.31 L (4.40-5.60) X 10*6/uL Carbon Dioxide 20.0 L (21.6-31.8) mmol/L Calcium 7.9 L (8.7-10.3) mg/dL Total Protein 5.3 L (6.2-8.2) g/dL Albumin 3.5 L (3.8-4.9) g/dL
--- NOTE | 2023-11-03 05:46 | P.PN ---
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 Has not been hospitalized with small bowel obstruction for over a year he apparently presented to the emergency department this time with severe abdominal pain for the last 48 hours CAT scan of the abdomen shows sign of small bowel obstruction without any transitional point patient had small amount of gas passing in his bowel still have significant sluggish abdominal discomfort if required will have an NG tube been in the meanwhile watch for any progression awaiting for surgical consultation today. 11/01/2023: Patient was admitted for small bowel obstruction with severe abdominal pain continue conservative management does not requiring NG tube at this point, x-ray to be repeated still waiting for surgical consultation which was originally placed for Dr. Maxwell was no longer come to [facility]. 11/02/2023: No NG tube, still have quite bit distended abdomen, abdominal x-ray shows still sign of obstruction. Patient was seen to also rule and start him on clear liquid diet. Had tolerating currently also is having multi bowel movement which is helping. Laboratory value with his white blood cell is down to 8.92 electrolyte panel does not show any sign of kidney injury or electrolyte imbalance. Still on hydration at this point. Still on conservative management for the next 24 hours if he is doing well despite the x-ray still showing significant sign of obstruction clinically patient is not showing any sign specially with the multi bowel movement with no intractable nausea or vomiting at this point. REVIEW OF SYSTEMS: CONSTITUTIONAL: Well-developed no acute respiratory distress. EYES: No icterus sclerae, no conjunctivitis. EARS, NOSE, MOUTH, THROAT, and FACE: No sore throat, lymphadenopathy, carotid bruits or deformity. RESPIRATORY: No SOB cough or wheezes. CARDIOVASCULAR: No CP, Palpitation, PND, Orthopnea, or angina. GASTROINTESTINAL: Positive abdominal pain with nausea and vomiting with bowel obstruction. GENITOURINARY: Mild BPH symptoms with no obstruction. INTEGUMENT/BREAST: Negative for any muscular injury with mild osteoarthritis.. HEMATOLOGIC/LYMPHATIC: Negative for bleed or purpura. MUSCULOSKELTAL: Negative for Myalgia or arthralgia. NEURLOGICAL: No LOC, Sz or syncope, blurred vision dizziness or abnormality.. BEHAVIORAL/PSYCH: Negative. ENDOCRINE: Negative. PHYSICAL EXAMINATION: General Appearance: Alert, cooperative, no distress, appears stated age. Neck HEENT: Supple, no lymphadenopathy, no thyroid enlargement, no carotid bruits. Lungs: Clear to auscultation without crackles or wheezes no rhonchi, no deformity. Chest Wall: Chest wall normal expansion with deep inspiration no tenderness and no deformity was found on exam, no costochondral pain or discomfort. Heart: Regular rate and rhythm, S1, S2 normal, no murmur, rub or gallop. Back: Symmetric, no curvature, ROM normal, no CVA tenderness. Abdomen: Distended soft with hyper bowel sound no masses no organomegaly. Extremities: Extremities normal, atraumatic, no cyanosis or edema. Pulses: 2+ and symmetric. Skin: Skin color, texture, tugor normal, no rashes or lesions. Neurologic: Alert oriented x3 cranial nerves II through XII intact, no motor deficit, no abnormal balance or gait. ASSESSMENT AND PLAN: _Severe abdominal pain: Secondary to small bowel obstruction most likely partial patient had multi bowel surgery in the past x-ray still showing some sign of obstruction the patient is having multi bowel movement and is on a clear liquid diet at this point. _Small bowel obstruction: Started on clear liquid diet will see if repeat x-ray 1 more time the patient is a clinically improving. _Hypertension: Has been on amlodipine 5 mg a day and metoprolol tartrate 12.5 mg twice a day resume medication as soon patient is able to take oral meds. _Hyperlipidemia: On atorvastatin continue medication. _BPH: On Flomax has been and held for patient's stomach feels better will continue to watch for any urinary retention. _Severe GERD: Remain on omeprazole 40 mg daily will switch to IV pantoprazole. Prognosis: Good. Discussion: Continue to titrate his diet from clear liquid to soft diet hopefully tomorrow if no worsening symptoms will rely probably on his clinical judgment more than the x-ray patient possibly to be discharged in the next 48 hours. Objective - Vital Signs Vital signs: Vital Signs Temp 98.2 F 11/02/23 01:39 Pulse 54 L 11/02/23 01:39 Resp 17 11/02/23 01:39 BP 122/58 11/02/23 01:39 Pulse Ox 92 L 11/02/23 01:39 FiO2 Intake & Output 11/01/23 11/01/23 11/02/23 06:59 18:59 06:59 Intake Total 900 1380 Output Total 400 200 Balance -166 558 8750 Intake: Intake, IV Titration 900 900 Amount Sodium Chloride 0.45% 1, 900 900 000 ml @ 75 mls/hr IV . [id number] [facility] Rx#:[id number] Oral 480 Output: Urine 400 200 Other: Voiding Method Toilet Toilet # Voids 1 3 1 # Bowel Movements 1 1 - Labs CBC & Chem 7: 11/02/23 06:59 11/02/23 06:59 Labs: Abnormal Lab Results - Last 24 Hours (Table) 11/01/23 11/01/23 Range/Units 06:15 06:15 RBC 4.32 L (4.40-5.60) X 10*6/uL Carbon Dioxide 21.3 L (21.6-31.8) mmol/L Calcium 8.0 L (8.7-10.3) mg/dL
--- NOTE | 2023-11-03 06:26 | P.DS ---
Providers Date of admission: 10/30/23 22:53 Attending physician: Steven Rice Consults: 10/31/23 21:17 Consult Physician Routine Consulting Provider: Sin Pratt Consult Reason/Comments: SBO Do you want consulting provider notified?: Yes Primary care physician: Steven Rice [facility] Course: HISTORY OF PRESENT ILLNESS: 88-year-old One of my office patient for few years with multimedical problems known to have history of partial small bowel obstruction has been seeing general surgery for the last few years had multi admission for small bowel obstruction had resolved naturally did not require to have any surgical intervention, symptoms usually become suddenly and stays on for few days with resting his bowel and NG tube and conservative management patient has done well in the past. Has not been hospitalized with small bowel obstruction for over a year he apparently presented to the emergency department this time with severe abdominal pain for the last 48 hours CAT scan of the abdomen shows sign of small bowel obstruction without any transitional point patient had small amount of gas passing in his bowel still have significant sluggish abdominal discomfort if required will have an NG tube been in the meanwhile watch for any progression awaiting for surgical consultation today. 11/01/2023: Patient was admitted for small bowel obstruction with severe abdominal pain continue conservative management does not requiring NG tube at this point, x-ray to be repeated still waiting for surgical consultation which was originally placed for Dr. Maxwell was no longer come to [facility]. 11/02/2023: No NG tube, still have quite bit distended abdomen, abdominal x-ray shows still sign of obstruction. Patient was seen to also rule and start him on clear liquid diet. Had tolerating currently also is having multi bowel movement which is helping. Laboratory value with his white blood cell is down to 8.92 electrolyte panel does not show any sign of kidney injury or electrolyte imbalance. Still on hydration at this point. Still on conservative management for the next 24 hours if he is doing well despite the x-ray still showing significant sign of obstruction clinically patient is not showing any sign specially with the multi bowel movement with no intractable nausea or vomiting at this point. REVIEW OF SYSTEMS: CONSTITUTIONAL: Well-developed no acute respiratory distress. EYES: No icterus sclerae, no conjunctivitis. EARS, NOSE, MOUTH, THROAT, and FACE: No sore throat, lymphadenopathy, carotid bruits or deformity. RESPIRATORY: No SOB cough or wheezes. CARDIOVASCULAR: No CP, Palpitation, PND, Orthopnea, or angina. GASTROINTESTINAL: Positive abdominal pain with nausea and vomiting with bowel obstruction. GENITOURINARY: Mild BPH symptoms with no obstruction. INTEGUMENT/BREAST: Negative for any muscular injury with mild osteoarthritis.. HEMATOLOGIC/LYMPHATIC: Negative for bleed or purpura. MUSCULOSKELTAL: Negative for Myalgia or arthralgia. NEURLOGICAL: No LOC, Sz or syncope, blurred vision dizziness or abnormality.. BEHAVIORAL/PSYCH: Negative. ENDOCRINE: Negative. PHYSICAL EXAMINATION: General Appearance: Alert, cooperative, no distress, appears stated age. Neck HEENT: Supple, no lymphadenopathy, no thyroid enlargement, no carotid bruits. Lungs: Clear to auscultation without crackles or wheezes no rhonchi, no deformity. Chest Wall: Chest wall normal expansion with deep inspiration no tenderness and no deformity was found on exam, no costochondral pain or discomfort. Heart: Regular rate and rhythm, S1, S2 normal, no murmur, rub or gallop. Back: Symmetric, no curvature, ROM normal, no CVA tenderness. Abdomen: Distended soft with hyper bowel sound no masses no organomegaly. Extremities: Extremities normal, atraumatic, no cyanosis or edema. Pulses: 2+ and symmetric. Skin: Skin color, texture, tugor normal, no rashes or lesions. Neurologic: Alert oriented x3 cranial nerves II through XII intact, no motor deficit, no abnormal balance or gait. ASSESSMENT AND PLAN: _Severe abdominal pain: Secondary to small bowel obstruction most likely partial patient had multi bowel surgery in the past x-ray still showing some sign of obstruction the patient is having multi bowel movement and is on a clear liquid diet at this point. _Small bowel obstruction: Started on clear liquid diet will see if repeat x-ray 1 more time the patient is a clinically improving. _Hypertension: Has been on amlodipine 5 mg a day and metoprolol tartrate 12.5 mg twice a day resume medication as soon patient is able to take oral meds. _Hyperlipidemia: On atorvastatin continue medication. _BPH: On Flomax has been and held for patient's stomach feels better will continue to watch for any urinary retention. _Severe GERD: Remain on omeprazole 40 mg daily will switch to IV pantoprazole. Hospital course: Patient was admitted to the hospital severe abdominal pain and small bowel obstruction CAT scan of the abdomen admission showed significant sign of obstruction. Patient did not require any NG tube, was kept n.p.o. initially, seen general surgery repeat abdominal series which continue to show slight suspicion for obstruction. On 11/02/2023 patient started having bowel movement and was started on clear liquid diet which patient able to tolerate well. Despite the finding on radiology still consistent with partial obstruction patient does not have any clinical finding with obstruction at this point. It is clear from general surgery standpoint no need for any intervention patient be able to go home today to follow as an outpatient and titrate by to gradually. Patient Condition at Discharge: Fair Plan - Discharge Summary Discharge Rx Participant: No New Discharge Prescriptions: Continue Omeprazole 40 mg PO DAILY Metoprolol Tartrate [Lopressor] 12.5 mg PO BID Vitamin B Complex 1 cap PO CLAUDIO Calcium Citrate/Vitamin D3 [Citracal + D Maximum Caplet] 1 tab PO DAILY Montelukast Sodium [Singulair] 10 mg PO HS amLODIPine [Norvasc] 5 mg PO DAILY Famotidine 20 mg PO BID PRN PRN Reason: Heartburn Tamsulosin [Flomax] 0.4 mg PO HS Atorvastatin [Lipitor] 40 mg PO HS #30 tablet Fluoride (Sodium) [Sodium Fluoride 5000 Plus] 1 applic DENTAL DAILY Cyanocobalamin (Vitamin B-12) [Vitamin B-12] 1,000 mcg PO MOTUWETHFRSA Discharge Medication List Omeprazole 40 mg PO DAILY 02/14/19 [History] Calcium Citrate/Vitamin D3 [Citracal + D Maximum Caplet] 1 tab PO DAILY 02/23/20 [History] Metoprolol Tartrate [Lopressor] 12.5 mg PO BID 02/23/20 [History] Vitamin B Complex 1 cap PO CLAUDIO 02/23/20 [History] Montelukast Sodium [Singulair] 10 mg PO HS 03/15/20 [History] Cyanocobalamin (Vitamin B-12) [Vitamin B-12] 1,000 mcg PO MOTUWETHFRSA 02/01/22 [History] Famotidine 20 mg PO BID PRN 02/01/22 [History] Tamsulosin [Flomax] 0.4 mg PO HS 02/01/22 [History] amLODIPine [Norvasc] 5 mg PO DAILY 02/01/22 [History] Atorvastatin [Lipitor] 40 mg PO HS #30 tablet 02/04/22 [Rx] Fluoride (Sodium) [Sodium Fluoride 5000 Plus] 1 applic DENTAL DAILY 10/31/23 [History] Follow up Appointment(s)/Referral(s): Steven Rice MD [Primary Care Provider] - 1-2 days Discharge Disposition: HOME SELF-CARE
--- NOTE | 2023-11-03 07:50 | P.PN ---
Subjective Progress Note Date: 11/03/23 HISTORY OF PRESENT ILLNESS: 88-year-old One of my office patient for few years with multimedical problems known to have history of partial small bowel obstruction has been seeing general surgery for the last few years had multi admission for small bowel obstruction had resolved naturally did not require to have any surgical intervention, symptoms usually become suddenly and stays on for few days with resting his bowel and NG tube and conservative management patient has done well in the past. Has not been hospitalized with small bowel obstruction for over a year he apparently presented to the emergency department this time with severe abdominal pain for the last 48 hours CAT scan of the abdomen shows sign of small bowel obstruction without any transitional point patient had small amount of gas passing in his bowel still have significant sluggish abdominal discomfort if required will have an NG tube been in the meanwhile watch for any progression awaiting for surgical consultation today. 11/01/2023: Patient was admitted for small bowel obstruction with severe abdominal pain continue conservative management does not requiring NG tube at this point, x-ray to be repeated still waiting for surgical consultation which was originally placed for Dr. Maxwell was no longer come to [facility]. 11/02/2023: No NG tube, still have quite bit distended abdomen, abdominal x-ray shows still sign of obstruction. Patient was seen to also rule and start him on clear liquid diet. Had tolerating currently also is having multi bowel movement which is helping. Laboratory value with his white blood cell is down to 8.92 electrolyte panel does not show any sign of kidney injury or electrolyte imbalance. Still on hydration at this point. Still on conservative management for the next 24 hours if he is doing well despite the x-ray still showing significant sign of obstruction clinically patient is not showing any sign specially with the multi bowel movement with no intractable nausea or vomiting at this point. 11/03/2023: He continued to have multi bowel movement with more diarrhea today feels more exhausted and dehydrated. Stool sample was sent for C. difficile which patient less likely to have C. difficile at this point. He is seeing general surgery again continue to have slight distended of the abdominal area but with the multi bowel movement the possibility of obstruction is not there anymore at this point. Might repeat another x-ray of the abdomen and probably do more blood work to exclude any other possibility of electrolyte imbalance. Patient most likely be delay of going home for an extra day probably till tomorr ow. REVIEW OF SYSTEMS: CONSTITUTIONAL: Well-developed no acute respiratory distress. EYES: No icterus sclerae, no conjunctivitis. EARS, NOSE, MOUTH, THROAT, and FACE: No sore throat, lymphadenopathy, carotid bruits or deformity. RESPIRATORY: No SOB cough or wheezes. CARDIOVASCULAR: No CP, Palpitation, PND, Orthopnea, or angina. GASTROINTESTINAL: Positive abdominal pain with nausea and vomiting with bowel obstruction. GENITOURINARY: Mild BPH symptoms with no obstruction. INTEGUMENT/BREAST: Negative for any muscular injury with mild osteoarthritis.. HEMATOLOGIC/LYMPHATIC: Negative for bleed or purpura. MUSCULOSKELTAL: Negative for Myalgia or arthralgia. NEURLOGICAL: No LOC, Sz or syncope, blurred vision dizziness or abnormality.. BEHAVIORAL/PSYCH: Negative. ENDOCRINE: Negative. PHYSICAL EXAMINATION: General Appearance: Alert, cooperative, no distress, appears stated age. Neck HEENT: Supple, no lymphadenopathy, no thyroid enlargement, no carotid bruits. Lungs: Clear to auscultation without crackles or wheezes no rhonchi, no deformity. Chest Wall: Chest wall normal expansion with deep inspiration no tenderness and no deformity was found on exam, no costochondral pain or discomfort. Heart: Regular rate and rhythm, S1, S2 normal, no murmur, rub or gallop. Back: Symmetric, no curvature, ROM normal, no CVA tenderness. Abdomen: Distended soft with hyper bowel sound no masses no organomegaly. Extremities: Extremities normal, atraumatic, no cyanosis or edema. Pulses: 2+ and symmetric. Skin: Skin color, texture, tugor normal, no rashes or lesions. Neurologic: Alert oriented x3 cranial nerves II through XII intact, no motor deficit, no abnormal balance or gait. ASSESSMENT AND PLAN: _Severe abdominal pain: Patient discomfort slightly better continue to have distention continue to have potential of small bowel obstruction not resolved yet despite having multi bowel movement. _Small bowel obstruction: Titrate diet today continue hydration will repeat another flat abdominal x-ray and lab. _Hypertension: Has been on amlodipine 5 mg a day and metoprolol tartrate 12.5 mg twice a day resume medication as soon patient is able to take oral meds. _Hyperlipidemia: On atorvastatin continue medication. _BPH: On Flomax has been and held for patient's stomach feels better will continue to watch for any urinary retention. _Severe GERD: Remain on omeprazole 40 mg daily will switch to IV pantoprazole. Prognosis: Good. Discussion: Continue to increase nutrition, flat abdominal x-ray and reevaluate by general surgery today we will delay his discharge at least tomorrow. Objective - Vital Signs Vital signs: Vital Signs Temp 97.6 F 11/03/23 01:37 Pulse 72 11/03/23 01:37 Resp 17 11/03/23 01:37 BP 134/53 11/03/23 01:37 Pulse Ox 94 L 11/03/23 01:37 FiO2 Intake & Output 11/02/23 11/02/23 11/03/23 06:59 18:59 06:59 Intake Total 1380 900 Output Total 200 150 550 Balance 1180 750 -550 Intake: Intake, IV Titration 900 900 Amount Sodium Chloride 0.45% 1, 900 900 000 ml @ 75 mls/hr IV . [id number] [facility] Rx#:[id number] Oral 480 Output: Urine 200 150 550 Other: Voiding Method Toilet Toilet # Voids 1 # Bowel Movements 1 2 - Labs CBC & Chem 7: 11/02/23 06:59 11/02/23 06:59 Labs: Abnormal Lab Results - Last 24 Hours (Table) 11/02/23 11/02/23 Range/Units 06:59 06:59 RBC 4.31 L (4.40-5.60) X 10*6/uL Carbon Dioxide 20.0 L (21.6-31.8) mmol/L Calcium 7.9 L (8.7-10.3) mg/dL Total Protein 5.3 L (6.2-8.2) g/dL Albumin 3.5 L (3.8-4.9) g/dL
--- NOTE | 2023-11-03 13:57 | P.PN ---
Subjective Progress Note Date: 11/03/23 CHIEF COMPLAINT: Partial small bowel obstruction HISTORY OF PRESENT ILLNESS: Patient does report abdominal pain. He is having diarrhea. Denies any vomiting. He did have some mild nausea that has improved. Patient had a fall yesterday. He reports that he just slid to the ground. Denies any injury. Afebrile. Stool for C. difficile negative PHYSICAL EXAM: VITAL SIGNS: Reviewed. GENERAL: Well-developed in no acute distress. ABDOMEN: Soft. Mildly distended. Mild tenderness above umbilicus and lower abdomen. Umbilical hernia reducible NEUROLOGIC: Alert and oriented. Cranial nerves II through XII grossly intact. ASSESSMENT: 1. Partial small bowel obstruction 2. Prior history of abdominal surgeries 3. 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 Ventral hernia reducible PLAN: -Continue full liquids -Continue supportive care -Encourage patient to increase activity level -Continue work with PT OT Physician Printing Plate Clerk note has been reviewed by physician. Signing provider agrees with the documented findings, assessment, and plan of care. Objective - Vital Signs Vital signs: Vital Signs Temp 98.5 F 11/03/23 07:31 Pulse 69 11/03/23 09:09 Resp 16 11/03/23 09:09 BP 128/69 11/03/23 07:31 Pulse Ox 94 L 11/03/23 07:31 FiO2 Intake & Output 11/02/23 11/03/23 11/03/23 18:59 06:59 18:59 Intake Total 900 900 Output Total 150 550 Balance 750 350 Intake: Intake, IV Titration 900 900 Amount Sodium Chloride 0.45% 1, 900 900 000 ml @ 75 mls/hr IV . [id number] [facility] Rx#:[id number] Output: Urine 150 550 Other: Voiding Method Toilet Bedside Commode # Voids 1 # Bowel Movements 2 4 1 - Labs CBC & Chem 7: 11/02/23 06:59 11/02/23 06:59
[2023-11-04 08:05] VITALS: BP 125/65; PULSE 59; TEMP 97.3
--- NOTE | 2023-11-04 08:16 | XR ---
EXAMINATION TYPE: XR abdomen 2V DATE OF EXAM: 11/04/2023 COMPARISON: 11/01/2023 HISTORY: Small bowel obstruction TECHNIQUE: Two view abdominal series FINDINGS: The osseous structures are intact. The bowel gas pattern is nonspecific. Persistent dilated small [place] wel loops with air-fluid levels. No significant interval change. Surgical clips right upper quadrant. Degenerative changes of the spine. Hypertrophic arthropathy of the hips. IMPRESSION: 1. Persistent dilated small bowel loops in a pattern suggestive of a bowel obstruction.
[2023-11-04 08:46] VITALS: RESP 24
[2023-11-04 11:42] LABS: Blood Urea Nitrogen 10.4 mg/dL (9.0-27.0); Calcium 8.4 mg/dL (8.7-10.3); Carbon Dioxide 22.1 mmol/L (21.6-31.8); Chloride 104 mmol/L (96-109); Glucose 98 mg/dL (70-110); Potassium 3.6 mmol/L (3.5-5.5); Sodium 137 mmol/L (135-145)
--- NOTE | 2023-11-04 15:28 | P.PN ---
Subjective Progress Note Date: 11/04/23 CHIEF COMPLAINT: Partial small bowel obstruction HISTORY OF PRESENT ILLNESS: Patient is having flatus. Last episode of diarrhea was yesterday. He reports no abdominal pain. He is still slightly bloated. Episode of nausea last night resolved. He is currently tolerating regular diet. Afebrile. Ambulating. PHYSICAL EXAM: VITAL SIGNS: Reviewed. GENERAL: Well-developed in no acute distress. ABDOMEN: Soft. Mildly distended. Nontender. Ventral hernia reducible NEUROLOGIC: Alert and oriented. Cranial nerves II through XII grossly intact. ASSESSMENT: 1. Partial small bowel obstruction 2. Prior history of abdominal surgeries 3. 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 Ventral hernia reducible PLAN: -Patient tolerating diet. Pain is improved. He is having flatus. He is stable for discharge. Physician Timber Faller note has been reviewed by physician. Signing provider agrees with the documented findings, assessment, and plan of care. Objective - Vital Signs Vital signs: Vital Signs Temp 97.3 F L 11/04/23 07:47 Pulse 59 L 11/04/23 07:47 Resp 24 11/04/23 07:47 BP 125/65 11/04/23 07:47 Pulse Ox 94 L 11/04/23 07:47 FiO2 Intake & Output 11/03/23 11/04/23 11/04/23 18:59 06:59 18:59 Intake Total 240 476 Output Total 200 450 Balance 40 -450 476 Intake: Oral 240 476 Output: Urine 200 450 Other: Voiding Method Bedside Commode Bedside Commode Toilet Urinal # Voids 1 1 # Bowel Movements 1 - Labs CBC & Chem 7: 11/02/23 06:59 11/04/23 07:29 Labs: Abnormal Lab Results - Last 24 Hours (Table) 11/04/23 Range/Units 07:29 BUN/Creatinine Ratio 10.40 L (12.00-20.00) Ratio Calcium 8.4 L (8.7-10.3) mg/dL
== END 2023-11-04 14:51 | disposition home health service (06) | DRG 389 ==
LOC: EC 20:08 → 5NMEDONC 22:53
PROVIDERS: ADMIT Internal Medicine Geriatric Medicine; ATTEND Internal Medicine Geriatric Medicine
PROC: 0D9670Z Drainage of Stomach with Drainage Device, Via Natural or Artificial Opening (ICD-10-PCS; principal; 2023-10-30)
DX: K56.600 Partial intestinal obstruction, unspecified as to cause (principal); E87.20 Acidosis, unspecified; K56.7 Ileus, unspecified; E78.5 Hyperlipidemia, unspecified; I10 Essential (primary) hypertension; K21.9 Gastro-esophageal reflux disease without esophagitis; Z88.0 Allergy status to penicillin; Z88.6 Allergy status to analgesic agent; Z91.018 Allergy to other foods; N40.0 Benign prostatic hyperplasia without lower urinary tract symptoms; W19.XXXA Unspecified fall, initial encounter; Z79.02 Long term (current) use of antithrombotics/antiplatelets; Z79.899 Other long term (current) drug therapy; Z82.49 Family history of ischemic heart disease and other diseases of the circulatory system; Z96.1 Presence of intraocular lens; Z98.42 Cataract extraction status, left eye; Z98.41 Cataract extraction status, right eye; Z95.5 Presence of coronary angioplasty implant and graft; B19.20 Unspecified viral hepatitis C without hepatic coma; M19.90 Unspecified osteoarthritis, unspecified site; K43.9 Ventral hernia without obstruction or gangrene; J45.909 Unspecified asthma, uncomplicated; E86.0 Dehydration; D72.829 Elevated white blood cell count, unspecified; H91.90 Unspecified hearing loss, unspecified ear; Z87.19 Personal history of other diseases of the digestive system; Z87.891 Personal history of nicotine dependence
CPT/HCPCS: 36415; 74019; 74176; 80048; 80053; 82150; 83605; 83690; 83735; 84100; 85025; 85027; 85610; 85730; 87324; 96361; 96374; 96375; 99285

== ENCOUNTER → 2023-12-10 | Outpatient (CLI) | payer MEDICARE ==
[2023-12-10 19:39] LABS: ALT 26 U/L (10-49); AST 23 U/L (14-35); Albumin 4.4 g/dL (3.8-4.9); Alkaline Phosphatase 93 U/L (41-126); BUN/Creat Ratio 15.92 Ratio (12.00-20.00); Blood Urea Nitrogen 19.1 mg/dL (9.0-27.0); Calcium 9.4 mg/dL (8.7-10.3); Carbon Dioxide 23.6 mmol/L (21.6-31.8); Chloride 104 mmol/L (96-109); Chol/HDL Ratio 2.73 Ratio; Globulin 2.1 g/dL (1.6-3.3); Glucose 93 mg/dL (70-110); LDL Cholesterol,Calculated 56.4 mg/dL (0.0-131.0); Potassium 5.1 mmol/L (3.5-5.5); Sodium 141 mmol/L (135-145); Total Bilirubin 0.6 mg/dL (0.3-1.2); Total Protein 6.5 g/dL (6.2-8.2)
== END | disposition home or self-care (01) ==
LOC: LABWHC1 11:40
PROVIDERS: ATTEND Internal Medicine Interventional Cardiology
DX: I10 Essential (primary) hypertension (principal); E78.2 Mixed hyperlipidemia
CPT/HCPCS: 36415; 80053; 80061

== ENCOUNTER → 2024-06-24 | Outpatient (CLI) | payer MEDICARE ==
[2024-06-24 13:46] LABS: Basophils # (A) 0.09 X 10*3/uL (0.00-0.10); Eosinophils # (A) 0.52 X 10*3/uL (0.04-0.35); Eosinophils % (A) 5.7 %; HCT 42.9 % (39.6-50.0); HGB 14.3 g/dL (13.0-17.0); Lymphocytes # (A) 2.86 X 10*3/uL (0.90-5.00); Lymphocytes % (A) 31.1 %; MCH 31.4 pg (27.0-32.0); MCHC 33.3 g/dL (32.0-37.0); MCV 94.1 FL (80.0-97.0); Mean Platelet Volume 9.9 FL (9.5-12.2); Monocytes # (A) 0.89 X 10*3/uL (0.20-1.00); Monocytes % (A) 9.7 %; NRBC Per 100 WBC 0 X 10*3/uL (0.00-0.01); Neutrophils # (A) 4.79 X 10*3/uL (1.80-7.70); Neutrophils % (A) 52.1 %; Platelet Count 250 X 10*3/uL (140-440); RBC 4.56 X 10*6/uL (4.40-5.60); WBC 9.19 X 10*3/uL (4.50-10.00)
[2024-06-24 14:07] LABS: ALT 17 U/L (10-49); AST 18 U/L (14-35); Albumin 4.3 g/dL (3.8-4.9); Albumin/Globulin Ratio 2.05 Ratio (1.60-3.17); Alkaline Phosphatase 92 U/L (41-126); BUN/Creat Ratio 14.69 Ratio (12.00-20.00); Blood Urea Nitrogen 19.1 mg/dL (9.0-27.0); Calcium 9.3 mg/dL (8.7-10.3); Carbon Dioxide 23.4 mmol/L (21.6-31.8); Chloride 106 mmol/L (96-109); Chol/HDL Ratio 2.68 Ratio; Globulin 2.1 g/dL (1.6-3.3); Glucose 95 mg/dL (70-110); LDL Cholesterol,Calculated 49.8 mg/dL (0.0-131.0); Potassium 4.5 mmol/L (3.5-5.5); Sodium 139 mmol/L (135-145); Total Bilirubin 0.7 mg/dL (0.3-1.2); Total Protein 6.4 g/dL (6.2-8.2)
== END | disposition home or self-care (01) ==
LOC: LABWHC1 10:19
PROVIDERS: ATTEND Internal Medicine Interventional Cardiology
DX: I12.9 Hypertensive chronic kidney disease with stage 1 through stage 4 chronic kidney disease, or unspecified chronic kidney disease (principal); N18.31 Chronic kidney disease, stage 3a; E78.2 Mixed hyperlipidemia; R73.9 Hyperglycemia, unspecified
CPT/HCPCS: 36415; 80053; 80061; 83036; 84443; 85025

== ENCOUNTER → 2024-07-27 | Outpatient (CLI) | payer MEDICARE ==
[2024-07-27 15:51] VITALS: BP 134/66; PULSE 70; RESP 16; TEMP 98.1
--- NOTE | 2024-07-27 16:08 | P.PN ---
Subjective Progress Note Date: 07/27/24 Principal diagnosis: bilateral gynecomastia Subjective Progress Note Date: 07/01/23 Benjy is an 89 year old white male seen in consultation for Dr. Rice in October 2021 regarding left breast and nipple pain. The patient had a mammogram on 04-08-21 of the left breast which showed findings consistent with gynecomastia. He also had an ultrasound done on 04-08-21 of that site which also appeared to be consistent with gynecomastia. The patient initially had tenderness at this site. He was started on a trial of tamoxifen which only lasted for several months. The pain however has stopped. He is having no symptoms related to this at the present time. He has no swelling in his right breast. The patient had a bilateral mammogram on to this was read as BIRADS 2 flame-shaped subareolar tissue with prominent on the left was redemonstrated. On the patient had a bilateral mammogram was felt to be BIRADS 0 and a repeat left breast ultrasound was performed the findings were felt to be consistent with gynecomastia and it was considered BIRADS 2. The patient has had pain across his left chest. He was seen by a chiropractor and had an adjustment and the pain is gone. He is not complaining of any changes in either breast. He has a small red lesion on his medial chest, this just occurred . 07-01-23 skin lesion medial chest, given a prescription for Bactrim last week the area has improved. States it is less red and is not as firm and swollen. 07-27-24 Benjy is complaining of pain in the right breast about one month ago, he is uncertain if there was any swollen He denies any trauma, no infection no nipple discharge or skin changes no testicular lumps or masses The patient was seen by dermatology and had several skin lesions removed, cancer on the back Caffeine: 2 cups/day nicotine: none Family History: father: bladder cancer ( from complications of treatment) mother: cancer lower bowels brother: nonhodgkins lymphoma Surgical History: gallbaldder lipoma left shoulder right knee and right shoulder surgery for bowel blockage skin lesion removed back Medical History: HTN hepatitis C (interferon shots, and chmeo pills than second course of treatment) chest pain/angina Social History: smoke: none for mnay years 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, 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 drugs: none - Constitutional Constitutional: Denies chills, Denies fever - EENT Comment: wears glasses Eyes: left pain Ears: bilateral: decreased hearing, tinnitus Ears, nose, mouth and throat: Denies headache, Denies sore throat - Breasts Breasts: bilateral: as per HPI - Cardiovascular Cardiovascular: Denies chest pain, Denies shortness of breath - Respiratory Respiratory: Reports cough - Gastrointestinal Comment: bowel blockages in the past Gastrointestinal: Denies abdominal pain, Denies diarrhea, Denies nausea, Denies vomiting - Genitourinary (Male) Comment: no testicular masses or lumps Genitourinary: Denies dysuria, Denies hematuria - Musculoskeletal Comment: left arm and shoulder pain - Integumentary Integumentary: Reports rash - Neurological Neurological: Denies numbness, Denies weakness - Psychiatric Psychiatric: Denies anxiety, Denies depression - Endocrine Endocrine: Denies fatigue, Denies weight change - Hematologic/Lymphatic Comment: aspirin baby - Allergic/Immunologic Allergic/Immunologic: Reports seasonal allergies Past Medical History Past Medical History: Asthma, Coronary Artery Disease (CAD), Chest Pain / Angina, GERD/Reflux, GI Bleed, Hearing Disorder / Deafness, Hyperlipidemia, Hypertension, Liver Disease, Osteoarthritis (OA) Additional Past Medical History / Comment(s): Recurrent SBO d/t adhesions with conservative treatment and surgical treatment, mild leaky heart valve, bleeding ulcer/lower GI bleed many years ago with exsanguination and stayed in ICU/had transfusions then another less severe lower GI bleed a few years later, upper GI bleed, duodenal ulcer, hiatal hernia, hepatitis C d/t blood transfusion-2nd treatment successful, some recent short term memory issues/tremors in hands and balance issues past few months being worked up, constipation, diverticulitis and past pre cancerous polypectomies-last colonoscopy was normal in 2018, low back pain, L shoulder pain, gout-saw range examiner in past, 06/2018 shingelles, [place] bilaterally, ventral hernia. History of Any Multi-Drug Resistant Organisms: None Reported Past Surgical History: Bowel Resection, Cholecystectomy, Heart Catheterization With Stent, Orthopedic Surgery Additional Past Surgical History / Comment(s): 06/2018 PCI with stent, 1999 PCI with 2 stents, laparotomy with lysis of adhesions, R rotator cuff repair, R knee arthroscopy, R upper chest lipoma removed, bilateral cataract removals/lens implants, EGD and colonoscopies with pre cancerous polypectomies-last colonoscopy in 2018 was normal per pt. Past Anesthesia/Blood Transfusion Reactions: Blood Transfusion Reaction Additional Past Anesthesia/Blood Transfusion Reaction / Comment(s): CONTRACTED HEP C FROM A BLOOD TRANSFUSION 35-40 YEARS AGO. Date of Last Stent Placement:: JUN 2018 Past Psychological History: No Psychological Hx Reported Smoking Status: Former smoker Past Alcohol Use History: None Reported Past Drug Use History: None Reported - Past Family History Mother Family Medical History: Cancer Additional Family Medical History / Comment(s): Other at age 80 from acute kidney injury following surgery. Patient had bladder suspension surgery and she developed to have possibly uterine cancer however she ended up with renal failure refused hemodialysis Father Family Medical History: Cancer, Deep Vein Thrombosis (DVT), Pulmonary Embolus Additional Family Medical History / Comment(s): LUNG CANCER. Father in his mid 60s due to blood clots with history of bladder cancer . The cause of pulmonary embolism. Brother(s) Family Medical History: Cancer, Coronary Artery Disease (CAD) Additional Family Medical History / Comment(s): Patient has one brother with history of non-Hodgkin's lymphoma diagnosed 15 YEARS AGO. He does not have any sisters. He has adult children with no major medical problem basically 2 sons and a daughter. Medications and Allergies Home Medications Medication Instructions Recorded Confirmed Type Simvastatin [Zocor] 20 mg PO HS 02/23/14 11/14/21 History Omeprazole 40 mg PO DAILY 02/14/19 11/14/21 History Calcium Citrate/Vitamin D3 1 tab PO DAILY 02/23/20 11/14/21 History [Citracal + D Maximum Caplet] Metoprolol Tartrate [Lopressor] 12.5 mg PO DAILY 02/23/20 11/14/21 History Vitamin B Complex 1 cap PO CLAUDIO 02/23/20 11/14/21 History Montelukast Sodium [Singulair] 10 mg PO HS 03/15/20 11/14/21 History Aspirin EC [Ecotrin Low Dose] 81 mg PO DAILY 01/28/21 11/14/21 History Docusate [Colace] 100 mg PO DAILY 01/28/21 11/14/21 History Loratadine [Claritin] 10 mg PO DAILY 03/12/21 11/14/21 History Losartan Potassium 50 mg PO DAILY 11/14/21 11/14/21 History Allergies Allergy/AdvReac Type Severity Reaction Status Date / Time atenolol Allergy Syncope Verified 11/14/21 09:59 Penicillins Allergy Rash/Hives Verified 11/14/21 09:59 prednisone Allergy Rash/Hives Verified 11/14/21 09:59 Objective - Vital Signs Vital signs: Vital Signs Temp 98.1 F 07/27/24 15:49 Pulse 70 07/27/24 15:49 Resp 16 07/27/24 15:49 BP 134/66 07/27/24 15:49 Pulse Ox 96 07/27/24 15:49 FiO2 Intake & Output 07/26/24 07/27/24 07/27/24 18:59 06:59 18:59 Weight 74.389 kg - Constitutional General appearance: Present: cooperative - EENT Eyes: Present: EOMI ENT: Present: hearing grossly normal - Respiratory Respiratory: bilateral: CTA - Cardiovascular Rhythm: regular Heart sounds: normal: S1, S2 - Integumentary Integumentary: Present: normal turgor - Musculoskeletal Musculoskeletal: Present: gait normal - Psychiatric Psychiatric: Present: A&O x's 3, appropriate affect, intact judgment & insight - Additional findings Additional findings: breast exam: inspection: bilateral gynecomastia palpation: right breast: Probable gynecomastia tender to palpation no other dominant masses or nodules of concern Right axilla: No adenopathy of concern Left breast: Probable gynecomastia and no dominant masses or nodules of concern otherwise Left axilla: No adenopathy of concern patient declined testicular exam Assessment and Plan Assessment: Impression: Resolved folliculitis bilateral gynecomastia Plan: bilateral mammogram then follow up continue to follow with dermatology CC: Dr. Rice
== END ==
LOC: WWCWWP 14:49
PROVIDERS: ATTEND Surgery
DX: N62 Hypertrophy of breast (principal); Z87.891 Personal history of nicotine dependence; Z88.0 Allergy status to penicillin; Z91.018 Allergy to other foods; Z88.8 Allergy status to other drugs, medicaments and biological substances

== ENCOUNTER → 2024-08-23 | Outpatient (CLI) | payer MEDICARE ==
--- NOTE | 2024-08-23 11:27 | MM ---
Reason for Exam: Clinical finding. Last mammogram was performed 1 year(s) and 2 month(s) ago. Patient History: 1963, Lumpectomy on the Left side. Tissue Density: There are scattered areas of fibroglandular density. Findings: Analyzed By CAD. Fibroglandular tissue compared with gynecomastia changes bilaterally, right greater than left. No new suspicious masses, calcifications or distortions. No finding to correlate with patient's pain. Overall Assessment: Incomplete: need additional imaging evaluation, BI-RAD 0 Management: Diagnostic Breast Ultrasound of the left breast. Results were given to the patient verbally at the time of exam. Patient should continue monthly self-breast exams. A clinical breast exam by your physician is recommended on an annual basis. This exam should not preclude additional follow-up of suspicious palpable abnormalities. Note on Radha scores and lifetime risk: 1. A Radha score greater than 3% is considered moderate risk. If this is the case, consider specialist referral to assess eligibility for a risk reducing agent. 2. If overall lifetime risk for the development of breast cancer is 20% or higher, the patient may qualify for future screening with alternating mammogram and breast MRI. [facility], , 08/23/2024 11:19 AM. Electronically signed and approved by: Benedict Landeros DO
--- NOTE | 2024-08-23 11:36 | USB ---
Patient History: 1963, Lumpectomy on the Left side. Technique: Method: Targeted. Doppler: Color. Patient Position: Supine. Prior Study Comparison: 04/08/2021 Left Diagnostic Mammogram, [facility]. 04/09/2022 Bilateral MG 3D diag mammo w/cad [facility], [facility]. 06/01/2023 Bilateral MG 3D diag mammo w/cad [facility], [facility]. Findings: The periareolar of the left breast, the axilla of the left breast and the retroareolar of the left breast were scanned. Technique utilized:US breast limited LT Image; Ultrasound imaging of: All 4 quadrants, the retroareolar region and axilla. No evidence for organizing fluid collection or mass. Technique utilized:US breast limited LT Image; Ultrasound imaging of: All 4 quadrants, the retroareolar region and axilla. No evidence for organizing fluid collection or mass. No finding to correlate with patient's pain. Overall Assessment: Negative, BI-RAD 1 Management: No follow up is required for this exam. A clinical breast exam by your physician is recommended on an annual basis and results should be correlated with mammographic findings. This exam should not preclude additional follow-up of suspicious palpable abnormalities. Results were given to the patient verbally at the time of exam. [facility], , 08/23/2024 11:33 AM. Electronically signed and approved by: Benedict Landeros DO
== END | disposition home or self-care (01) ==
LOC: RADMAMWWP 10:47
PROVIDERS: ATTEND Surgery
DX: R92.323 Mammographic fibroglandular density, bilateral breasts (principal)
CPT/HCPCS: 77066; 76642; G0279; 77062

== ENCOUNTER → 2024-10-13 | Outpatient (CLI) | payer MEDICARE ==
[2024-10-13 12:57] VITALS: BP 104/59; PULSE 65; RESP 17; TEMP 97.9
--- NOTE | 2024-10-13 13:16 | P.PN ---
Subjective Progress Note Date: 10/13/24 Principal diagnosis: breast pain Subjective Progress Note Date: 06/25/23 Benjy is an 87 year old white male seen in consultation for Dr. Rice in October 2021 regarding left breast and nipple pain. The patient had a mammogram on 04-08-21 of the left breast which showed findings consistent with gynecomastia. He also had an ultrasound done on 04-08-21 of that site which also appeared to be consistent with gynecomastia. The patient initially had tenderness at this site. He was started on a trial of tamoxifen which only lasted for several months. The pain however has stopped. He is having no symptoms related to this at the present time. He has no swelling in his right breast. The patient had a bilateral mammogram on to this was read as BIRADS 2 flame-shaped subareolar tissue with prominent on the left was redemonstrated. On the patient had a bilateral mammogram was felt to be BIRADS 0 and a repeat left breast ultrasound was performed the findings were felt to be consistent with gynecomastia and it was considered BIRADS 2. The patient has had pain across his left chest. He was seen by a chiropractor and had an adjustment and the pain is gone. He is not complaining of any changes in either breast. He has a small red lesion on his medial chest, this just occured when seen in 2022. 10-13-24 89 year old male with a complaint of right breast pain in June 2024. No trauma no infection no nipple discharge. bilateral mammogram on 08-23-24 and left breast ultrasound on 08-23-24 BIRAD 1 The pain has improved, no lump in the left breast. He does have some discomfort in the right breast. In 1964 he had a lipoma removed from the left breast. 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 - Constitutional Constitutional: Denies chills, Denies fever - EENT Comment: wears glasses Eyes: left pain Ears: bilateral: decreased hearing, tinnitus Ears, nose, mouth and throat: Denies headache, Denies sore throat - Breasts Breasts: bilateral: as per HPI - Cardiovascular Cardiovascular: Denies chest pain, Denies shortness of breath - Respiratory Respiratory: Reports cough - Gastrointestinal Comment: bowel blockages in the past Gastrointestinal: Denies abdominal pain, Denies diarrhea, Denies nausea, Denies vomiting - Genitourinary (Male) Comment: no testicular masses or lumps Genitourinary: Denies dysuria, Denies hematuria - Musculoskeletal Comment: left arm and shoulder pain - Integumentary Integumentary: Reports rash - Neurological Neurological: Denies numbness, Denies weakness - Psychiatric Psychiatric: Denies anxiety, Denies depression - Endocrine Endocrine: Denies fatigue, Denies weight change - Hematologic/Lymphatic Comment: aspirin baby - Allergic/Immunologic Allergic/Immunologic: Reports seasonal allergies Past Medical History Past Medical History: Asthma, Coronary Artery Disease (CAD), Chest Pain / Angina, GERD/Reflux, GI Bleed, Hearing Disorder / Deafness, Hyperlipidemia, Hypertension, Liver Disease, Osteoarthritis (OA) Additional Past Medical History / Comment(s): Recurrent SBO d/t adhesions with conservative treatment and surgical treatment, mild leaky heart valve, bleeding ulcer/lower GI bleed many years ago with exsanguination and stayed in ICU/had transfusions then another less severe lower GI bleed a few years later, upper GI bleed, duodenal ulcer, hiatal hernia, hepatitis C d/t blood transfusion-2nd treatment successful, some recent short term memory issues/tremors in hands and balance issues past few months being worked up, constipation, diverticulitis and past pre cancerous polypectomies-last colonoscopy was normal in 2018, low back pain, L shoulder pain, gout-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 History of Any Multi-Drug Resistant Organisms: None Reported Past Surgical History: Bowel Resection, Cholecystectomy, Heart Catheterization With Stent, Orthopedic Surgery Additional Past Surgical History / Comment(s): 06/2018 PCI with stent, 1999 PCI with 2 stents, laparotomy with lysis of adhesions, R rotator cuff repair, R knee arthroscopy, R upper chest lipoma removed, bilateral cataract removals/lens implants, EGD and colonoscopies with pre cancerous polypectomies-last colonoscopy in 2018 was normal per pt. Past Anesthesia/Blood Transfusion Reactions: Blood Transfusion Reaction Additional Past Anesthesia/Blood Transfusion Reaction / Comment(s): CONTRACTED HEP C FROM A BLOOD TRANSFUSION 35-40 YEARS AGO. Date of Last Stent Placement:: JUN 2018 Past Psychological History: No Psychological Hx Reported Smoking Status: Former smoker Past Alcohol Use History: None Reported Past Drug Use History: None Reported - Past Family History Mother Family Medical History: Cancer Additional Family Medical History / Comment(s): Other at age 80 from acute kidney injury following surgery. Patient had bladder suspension surgery and she developed to have possibly uterine cancer however she ended up with renal failure refused hemodialysis Father Family Medical History: Cancer, Deep Vein Thrombosis (DVT), Pulmonary Embolus Additional Family Medical History / Comment(s): LUNG CANCER. Father in his mid 60s due to blood clots with history of bladder cancer . The cause of pulmonary embolism. Brother(s) Family Medical History: Cancer, Coronary Artery Disease (CAD) Additional Family Medical History / Comment(s): Patient has one brother with history of non-Hodgkin's lymphoma diagnosed 15 YEARS AGO. He does not have any sisters. He has adult children with no major medical problem basically 2 sons and a daughter. Medications and Allergies Home Medications Medication Instructions Recorded Confirmed Type Simvastatin [Zocor] 20 mg PO HS 02/23/14 11/14/21 History Omeprazole 40 mg PO DAILY 02/14/19 11/14/21 History Calcium Citrate/Vitamin D3 1 tab PO DAILY 02/23/20 11/14/21 History [Citracal + D Maximum Caplet] Metoprolol Tartrate [Lopressor] 12.5 mg PO DAILY 02/23/20 11/14/21 History Vitamin B Complex 1 cap PO CLAUDIO 02/23/20 11/14/21 History Montelukast Sodium [Singulair] 10 mg PO HS 03/15/20 11/14/21 History Aspirin EC [Ecotrin Low Dose] 81 mg PO DAILY 01/28/21 11/14/21 History Docusate [Colace] 100 mg PO DAILY 01/28/21 11/14/21 History Loratadine [Claritin] 10 mg PO DAILY 03/12/21 11/14/21 History Losartan Potassium 50 mg PO DAILY 11/14/21 11/14/21 History Allergies Allergy/AdvReac Type Severity Reaction Status Date / Time atenolol Allergy Syncope Verified 11/14/21 09:59 Penicillins Allergy Rash/Hives Verified 11/14/21 09:59 prednisone Allergy Rash/Hives Verified 11/14/21 09:59 Objective - Vital Signs Vital signs: Vital Signs Temp 97.9 F 10/13/24 12:50 Pulse 65 10/13/24 12:50 Resp 17 10/13/24 12:50 BP 104/59 10/13/24 12:50 Pulse Ox 99 10/13/24 12:50 FiO2 Intake & Output 10/12/24 10/13/24 10/13/24 18:59 06:59 18:59 Weight 72.575 kg - Constitutional General appearance: Present: cooperative - EENT Eyes: Present: EOMI - Neck Neck: Present: normal ROM - Respiratory Respiratory: bilateral: CTA - Cardiovascular Heart sounds: normal: S1, S2 - Integumentary Integumentary: Present: normal turgor - Musculoskeletal Musculoskeletal: Present: gait normal - Psychiatric Psychiatric: Present: A&O x's 3, appropriate affect, intact judgment & insight - Additional findings Additional findings: Breast Exam: insepection: no skin lesions of concern palpation: right breast: no masses or nodules of concern, mild fullness under the right nipple consistent with gynecomastia right axilla: No adenopathy of concern Left breast: Mild fullness under the nipple areolar complex no firm masses or nodules of concern Left axilla: No adenopathy of concern Assessment and Plan Assessment: Impression: probable bilateral breast gynecomastia/asymptomatic Plan: Patient given the option of a biopsy, right breast and he has declined repeat mammogram and ultrasound in September 2025 follow up after radiographic studies discussed life style modification stopping coffee/ he is not interested in doing this CC: Dr. Rice
== END ==
LOC: WWCWWP 12:03
PROVIDERS: ATTEND Surgery
DX: N64.4 Mastodynia (principal); Z87.891 Personal history of nicotine dependence; Z88.8 Allergy status to other drugs, medicaments and biological substances; Z88.0 Allergy status to penicillin; Z91.018 Allergy to other foods